=== PATIENT | male | born 1975 | race Caucasian/White ===

== ENCOUNTER 2019-10-11 08:54 | Outpatient (RCR) | payer SELFPAY | END 2019-10-26 00:01 | LOC: LAB 08:54 | PROVIDERS: Family Provider Family Medicine; Visit Provider Family Medicine | DX: E72.20 Disorder of urea cycle metabolism, unspecified (principal); D64.9 Anemia, unspecified; E74.04 McArdle disease; N17.0 Acute kidney failure with tubular necrosis; M62.82 Rhabdomyolysis; R16.2 Hepatomegaly with splenomegaly, not elsewhere classified | CPT/HCPCS: 36415 ×3; 80053 ×3; 82140 ×3; 82550 ×3; 85007 ×3; 85027 ×3 ==

== ENCOUNTER 2019-10-27 10:59 | Outpatient (CLI) | payer BC, SELFPAY ==
[2019-10-27 11:22] LABS: Add RBC Morph No; Basophils % 0.7 %; Eosinophils # 0.2 10^3/uL (0.0-0.8); Eosinophils % 3.9 %; Hematocrit 44.5 % (42.0-52.0); Hemoglobin 14.3 g/dL (11.7-16.6); Lymphocytes # 1.8 10^3/uL (0.8-4.8); Lymphocytes % 34.1 %; Mean Corpuscular HGB Conc 32.1 g/dL (30.0-36.0); Mean Corpuscular Hemoglobin 29.6 pg (28.0-34.0); Mean Corpuscular Volume 92.1 fL (80-94); Mean Platelet Volume 9.2 fL (7.4-10.4); Monocytes # 0.4 10^3/uL (0.2-0.9); Monocytes % 6.7 %; Neutrophils # 2.9 10^3/uL (1.8-7.7); Neutrophils % 54.4 %; Nucleated Red Blood Cells % 0 %; Platelet Count 227 10^3/cmm (130-400); Red Blood Count 4.83 10^6/uL (4.1-5.3); Red Cell Distribution Width 13.6 % (12.1-15.1); White Blood Count 5.4 10^3/uL (4.0-10.0)
[2019-10-27 11:46] LABS: Alanine Aminotransferase 21 U/L (0-41); Albumin Level 4.8 g/dL (3.5-5.2); Alkaline Phosphatase 84 IU/L (40-130); Anion Gap 16.9 (5-19); Aspartate Amino Transferase 24 U/L (0-40); Blood Urea Nitrogen 26 mg/dL (6-20); Calcium 10.6 mg/Dl (8.6-10.0); Carbon Dioxide 28 mmol/L (22-29); Chloride 98 mmol/L (98-107); Creatine Phosphokinase 169 U/L (39-308); Globulin 2.4 g/dL (1.3-4.6); Glomerular Filtration Rate 40.8 mL/min (90-130); Glucose 109 mg/dL (74-109); Potassium 3.9 mmol/L (3.5-5.1); Sodium 139 mmol/L (136-145); Total Bilirubin 0.3 mg/dL (0.15-1.2); Total Protein 7.2 g/dL (6.6-8.7)
[2019-10-27 11:57] LABS: Ammonia 55 umol/L (16-60)
== END 2019-10-27 11:00 | disposition home or self-care (01) ==
LOC: LAB 11:03
PROVIDERS: Family Provider Family Medicine; PCP Family Medicine; Visit Provider Family Medicine
DX: E72.20 Disorder of urea cycle metabolism, unspecified (principal); R16.2 Hepatomegaly with splenomegaly, not elsewhere classified; D64.9 Anemia, unspecified; E74.04 McArdle disease; N17.0 Acute kidney failure with tubular necrosis; M62.82 Rhabdomyolysis
CPT/HCPCS: 80053; 82140; 82550; 85025

== ENCOUNTER 2019-11-02 15:10 | Outpatient (CLI) | payer BC, SELFPAY ==
[2019-11-02 15:42] LABS: Alanine Aminotransferase 12 U/L (0-41); Albumin Level 4.7 g/dL (3.5-5.2); Alkaline Phosphatase 95 IU/L (40-130); Aspartate Amino Transferase 11 U/L (0-40); Blood Urea Nitrogen 28 mg/dL (6-20); Calcium 10.3 mg/Dl (8.6-10.0); Carbon Dioxide 22 mmol/L (22-29); Chloride 105 mmol/L (98-107); Creatine Phosphokinase 59 U/L (39-308); Globulin 2.5 g/dL (1.3-4.6); Glomerular Filtration Rate 40.8 mL/min (90-130); Glucose 101 mg/dL (74-109); Sodium 140 mmol/L (136-145); Total Bilirubin 0.2 mg/dL (0.15-1.2); Total Protein 7.2 g/dL (6.6-8.7)
[2019-11-02 15:55] LABS: Basophils # 0.1 10^3/uL (0.0-0.1); Basophils % 0.6 %; Eosinophils # 0.2 10^3/uL (0.0-0.8); Eosinophils % 2.2 %; Hematocrit 45.8 % (42.0-52.0); Hemoglobin 14.7 g/dL (11.7-16.6); Lymphocytes # 2.1 10^3/uL (0.8-4.8); Lymphocytes % 24.1 %; Mean Corpuscular HGB Conc 32.1 g/dL (30.0-36.0); Mean Corpuscular Hemoglobin 29.2 pg (28.0-34.0); Mean Corpuscular Volume 90.9 fL (80-94); Mean Platelet Volume 9.5 fL (7.4-10.4); Monocytes # 0.4 10^3/uL (0.2-0.9); Monocytes % 4.3 %; Neutrophils % 68.5 %; Nucleated Red Blood Cells % 0 %; Platelet Count 308 10^3/cmm (130-400); Red Blood Count 5.04 10^6/uL (4.1-5.3); Red Cell Distribution Width 14.3 % (12.1-15.1); White Blood Count 8.8 10^3/uL (4.0-10.0)
[2019-11-02 16:05] LABS: Ammonia 38 umol/L (16-60)
== END 2019-11-02 15:11 | disposition home or self-care (01) ==
LOC: LAB 15:12
PROVIDERS: Family Provider Family Medicine; PCP Family Medicine; Visit Provider Family Medicine
DX: E72.20 Disorder of urea cycle metabolism, unspecified (principal); R16.2 Hepatomegaly with splenomegaly, not elsewhere classified; D64.9 Anemia, unspecified; E74.04 McArdle disease; N17.0 Acute kidney failure with tubular necrosis; M62.82 Rhabdomyolysis
CPT/HCPCS: 36415; 80053; 82140; 82550; 85025

== ENCOUNTER 2019-11-09 12:54 | Outpatient (CLI) | payer BC, SELFPAY ==
[2019-11-09 14:37] LABS: Basophils # 0.1 10^3/uL (0.0-0.1); Basophils % 0.8 %; Eosinophils # 0.3 10^3/uL (0.0-0.8); Eosinophils % 3.6 %; Hematocrit 47.8 % (42.0-52.0); Hemoglobin 15.5 g/dL (11.7-16.6); Lymphocytes # 2.1 10^3/uL (0.8-4.8); Lymphocytes % 28.5 %; Mean Corpuscular HGB Conc 32.4 g/dL (30.0-36.0); Mean Corpuscular Hemoglobin 29.6 pg (28.0-34.0); Mean Corpuscular Volume 91.2 fL (80-94); Mean Platelet Volume 10.1 fL (7.4-10.4); Monocytes # 0.7 10^3/uL (0.2-0.9); Monocytes % 8.8 %; Neutrophils # 4.3 10^3/uL (1.8-7.7); Neutrophils % 57.9 %; Nucleated Red Blood Cells % 0 %; Platelet Count 325 10^3/cmm (130-400); Red Blood Count 5.24 10^6/uL (4.1-5.3); Red Cell Distribution Width 14.6 % (12.1-15.1); White Blood Count 7.5 10^3/uL (4.0-10.0)
[2019-11-09 14:39] LABS: Albumin Level 5.1 g/dL (3.5-5.2); Blood Urea Nitrogen 27 mg/dL (6-20); Calcium 10.4 mg/Dl (8.6-10.0); Carbon Dioxide 25 mmol/L (22-29); Chloride 105 mmol/L (98-107); Creatine Phosphokinase 51 U/L (39-308); Glucose 73 mg/dL (74-109); Lactate (Lactic Acid level) 0.8 mmol/L (0.5-2.2); Phosphorus 2.3 mg/dL (2.5-4.5); Sodium 141 mmol/L (136-145); Uric Acid 6.7 mg/dL (3.4-7.0)
[2019-11-09 15:51] LABS: Reflex Lactate Order Y
[2019-11-10 13:28] LABS: Ammonia 10 umol/L (16-60)
== END 2019-11-09 12:55 | disposition home or self-care (01) ==
PROVIDERS: Family Provider Family Medicine; PCP Family Medicine; Visit Provider Family Medicine
DX: E74.04 McArdle disease (principal); N17.0 Acute kidney failure with tubular necrosis
CPT/HCPCS: 36415; 80069; 82139; 82140; 82550; 83605; 84550; 85025

== ENCOUNTER 2019-11-15 08:56 | Outpatient (CLI) | payer BC, MEDICAID, SELFPAY ==
[2019-11-15 09:19] LABS: Basophils # 0.1 10^3/uL (0.0-0.1); Basophils % 0.8 %; Eosinophils # 0.3 10^3/uL (0.0-0.8); Eosinophils % 4.2 %; Hemoglobin 15.4 g/dL (11.7-16.6); Lymphocytes # 2.2 10^3/uL (0.8-4.8); Lymphocytes % 27.8 %; Mean Corpuscular HGB Conc 32.1 g/dL (30.0-36.0); Mean Corpuscular Hemoglobin 30.1 pg (28.0-34.0); Mean Corpuscular Volume 93.8 fL (80-94); Mean Platelet Volume 9.8 fL (7.4-10.4); Monocytes # 0.6 10^3/uL (0.2-0.9); Monocytes % 7.3 %; Neutrophils # 4.7 10^3/uL (1.8-7.7); Neutrophils % 59.6 %; Nucleated Red Blood Cells % 0 %; Platelet Count 268 10^3/cmm (130-400); Red Blood Count 5.12 10^6/uL (4.1-5.3); Red Cell Distribution Width 14.7 % (12.1-15.1); White Blood Count 7.8 10^3/uL (4.0-10.0)
[2019-11-15 09:35] LABS: Alanine Aminotransferase 14 U/L (0-41); Albumin Level 4.4 g/dL (3.5-5.2); Alkaline Phosphatase 83 IU/L (40-130); Anion Gap 17.8 (5-19); Aspartate Amino Transferase 14 U/L (0-40); Blood Urea Nitrogen 20 mg/dL (6-20); Calcium 10.5 mg/Dl (8.6-10.0); Carbon Dioxide 22 mmol/L (22-29); Chloride 106 mmol/L (98-107); Creatine Phosphokinase 69 U/L (39-308); Globulin 2.7 g/dL (1.3-4.6); Glomerular Filtration Rate 36.1 mL/min (90-130); Glucose 100 mg/dL (74-109); Potassium 3.8 mmol/L (3.5-5.1); Sodium 142 mmol/L (136-145); Total Bilirubin 0.2 mg/dL (0.15-1.2); Total Protein 7.1 g/dL (6.6-8.7)
[2019-11-15 10:22] LABS: Ammonia 40 umol/L (16-60)
== END 2019-11-15 08:57 | disposition home or self-care (01) ==
LOC: LAB 08:57
PROVIDERS: Family Provider Family Medicine; PCP Family Medicine; Visit Provider Family Medicine
DX: E74.04 McArdle disease (principal)
CPT/HCPCS: 36415; 80053; 82140; 82550; 85025

== ENCOUNTER 2019-11-18 10:28 | Outpatient (CLI) | payer BC, MEDICAID, SELFPAY ==
[2019-11-18 11:06] LABS: Basophils % 0.4 %; Eosinophils # 0.4 10^3/uL (0.0-0.8); Eosinophils % 5.6 %; Hematocrit 42.4 % (42.0-52.0); Hemoglobin 13.7 g/dL (11.7-16.6); Lymphocytes # 2.2 10^3/uL (0.8-4.8); Lymphocytes % 29.1 %; Mean Corpuscular HGB Conc 32.3 g/dL (30.0-36.0); Mean Corpuscular Hemoglobin 30.5 pg (28.0-34.0); Mean Corpuscular Volume 94.4 fL (80-94); Mean Platelet Volume 9.8 fL (7.4-10.4); Monocytes # 0.6 10^3/uL (0.2-0.9); Monocytes % 7.4 %; Neutrophils # 4.3 10^3/uL (1.8-7.7); Neutrophils % 57.4 %; Nucleated Red Blood Cells % 0 %; Platelet Count 224 10^3/cmm (130-400); Red Blood Count 4.49 10^6/uL (4.1-5.3); Red Cell Distribution Width 14.8 % (12.1-15.1); White Blood Count 7.5 10^3/uL (4.0-10.0)
[2019-11-18 11:23] LABS: Alanine Aminotransferase 24 U/L (0-41); Albumin Level 4.6 g/dL (3.5-5.2); Alkaline Phosphatase 86 IU/L (40-130); Anion Gap 15.7 (5-19); Aspartate Amino Transferase 40 U/L (0-40); Blood Urea Nitrogen 30 mg/dL (6-20); Calcium 9.7 mg/dL (8.5-10.5); Carbon Dioxide 24 mmol/L (22-29); Chloride 100 mmol/L (98-107); Globulin 1.7 g/dL (1.3-4.6); Glomerular Filtration Rate 27.9 mL/min (90-130); Glucose 143 mg/dL (74-109); Potassium 3.7 mmol/L (3.5-5.1); Sodium 136 mmol/L (136-145); Total Bilirubin 0.3 mg/dL (0.15-1.2); Total Protein 6.3 g/dL (6.6-8.7)
[2019-11-18 11:24] LABS: Ammonia 33 umol/L (16-60)
[2019-11-18 11:34] LABS: Calcium 9.5 mg/dL (8.5-10.5)
[2019-11-18 11:53] LABS: Creatine Phosphokinase 946 U/L (39-308)
[2019-11-18 12:08] LABS: Parathyroid Hormone 36.5 pg/mL (15-65)
[2019-11-18 12:11] LABS: 25 Hydroxy Vitamin D 25 ng/mL (30-100)
[2019-11-23 20:11] LABS: Vit D 1,25 (Oh)2, Total 15 pg/mL (18-72); Vit D2 1,25 (Oh)2 <8 pg/mL; Vit D3 1,25 (Oh)2 15 pg/mL
== END 2019-11-18 10:29 | disposition home or self-care (01) ==
LOC: LAB 10:32
PROVIDERS: Internal Medicine Critical Care Medicine; Family Provider Family Medicine; PCP Family Medicine; Visit Provider Family Medicine
DX: E74.04 McArdle disease (principal); E72.20 Disorder of urea cycle metabolism, unspecified
CPT/HCPCS: 36415; 80053; 82140; 82306; 82310; 82550; 82652; 83970; 85025

== ENCOUNTER 2019-11-18 13:47 | Outpatient (CLI) | payer BC, MEDICAID, SELFPAY ==
[2019-11-18] MEDS: sodium chloride 0.9% 1,000 ML 999 ML IV (14:12)
[2019-11-18 14:44] VITALS: BP 123/72; PULSE 78; RESP 18; TEMP 36.3; O2SAT 97; BMI 24.1
== END 2019-11-18 13:48 | disposition home or self-care (01) ==
LOC: GILAB 13:49
PROVIDERS: Family Provider Family Medicine; PCP Family Medicine; Visit Provider Family Medicine
DX: N17.0 Acute kidney failure with tubular necrosis (principal); M62.82 Rhabdomyolysis; E71.314 Muscle carnitine palmitoyltransferase deficiency
CPT/HCPCS: 96360; J7030

== ENCOUNTER 2019-11-22 09:18 | Outpatient (CLI) | payer BC, MEDICAID, SELFPAY ==
[2019-11-22 09:46] LABS: Basophils % 0.2 %; Eosinophils # 0.3 10^3/uL (0.0-0.8); Eosinophils % 3.9 %; Hematocrit 39.1 % (42.0-52.0); Hemoglobin 12.7 g/dL (11.7-16.6); Lymphocytes # 1.2 10^3/uL (0.8-4.8); Lymphocytes % 18.5 %; Mean Corpuscular HGB Conc 32.5 g/dL (30.0-36.0); Mean Corpuscular Hemoglobin 29.9 pg (28.0-34.0); Mean Platelet Volume 10.1 fL (7.4-10.4); Monocytes # 0.5 10^3/uL (0.2-0.9); Monocytes % 7.6 %; Neutrophils # 4.4 10^3/uL (1.8-7.7); Neutrophils % 69.5 %; Nucleated Red Blood Cells % 0 %; Platelet Count 216 10^3/cmm (130-400); Red Blood Count 4.25 10^6/uL (4.1-5.3); Red Cell Distribution Width 14.9 % (12.1-15.1); White Blood Count 6.3 10^3/uL (4.0-10.0)
[2019-11-22 10:01] LABS: Alanine Aminotransferase 25 U/L (0-41); Albumin Level 4.2 g/dL (3.5-5.2); Alkaline Phosphatase 86 IU/L (40-130); Anion Gap 15.1 (5-19); Aspartate Amino Transferase 41 U/L (0-40); Blood Urea Nitrogen 19 mg/dL (6-20); Calcium 9.9 mg/dL (8.5-10.5); Carbon Dioxide 27 mmol/L (22-29); Chloride 103 mmol/L (98-107); Globulin 2.6 g/dL (1.3-4.6); Glomerular Filtration Rate 27.9 mL/min (90-130); Glucose 137 mg/dL (74-109); Potassium 4.1 mmol/L (3.5-5.1); Sodium 141 mmol/L (136-145); Total Bilirubin 0.3 mg/dL (0.15-1.2); Total Protein 6.8 g/dL (6.6-8.7)
[2019-11-22 10:16] LABS: Ammonia 22 umol/L (16-60)
[2019-11-22 10:35] LABS: Creatine Phosphokinase 896 U/L (39-308)
== END 2019-11-22 09:19 | disposition home or self-care (01) ==
LOC: LAB 09:19
PROVIDERS: Family Provider Family Medicine; PCP Family Medicine; Visit Provider Family Medicine
DX: E74.04 McArdle disease (principal)
CPT/HCPCS: 36415; 80053; 82140; 82550; 85025

== ENCOUNTER 2019-11-30 10:33 | Outpatient (CLI) | payer BC, SELFPAY ==
[2019-11-30 11:17] LABS: Basophils # 0.1 10^3/uL (0.0-0.1); Basophils % 0.7 %; Eosinophils # 0.2 10^3/uL (0.0-0.8); Eosinophils % 2.1 %; Hematocrit 50.4 % (42.0-52.0); Hemoglobin 15.9 g/dL (11.7-16.6); Lymphocytes # 1.9 10^3/uL (0.8-4.8); Lymphocytes % 21.7 %; Mean Corpuscular HGB Conc 31.5 g/dL (30.0-36.0); Mean Corpuscular Hemoglobin 29.7 pg (28.0-34.0); Mean Corpuscular Volume 94.2 fL (80-94); Mean Platelet Volume 9.8 fL (7.4-10.4); Monocytes # 0.5 10^3/uL (0.2-0.9); Monocytes % 5.9 %; Neutrophils % 68.9 %; Nucleated Red Blood Cells % 0 %; Platelet Count 279 10^3/cmm (130-400); Red Blood Count 5.35 10^6/uL (4.1-5.3); Red Cell Distribution Width 14.5 % (12.1-15.1); White Blood Count 8.7 10^3/uL (4.0-10.0)
[2019-11-30 11:32] LABS: Alanine Aminotransferase 12 U/L (0-41); Albumin Level 4.5 g/dL (3.5-5.2); Alkaline Phosphatase 90 IU/L (40-130); Anion Gap 16.1 (5-19); Blood Urea Nitrogen 24 mg/dL (6-20); Calcium 10.4 mg/dL (8.5-10.5); Carbon Dioxide 23 mmol/L (22-29); Chloride 102 mmol/L (98-107); Creatine Phosphokinase 54 U/L (39-308); Globulin 3.1 g/dL (1.3-4.6); Glomerular Filtration Rate 38.4 mL/min (90-130); Glucose 95 mg/dL (74-109); Potassium 5.1 mmol/L (3.5-5.1); Sodium 136 mmol/L (136-145); Total Bilirubin 0.3 mg/dL (0.15-1.2); Total Protein 7.6 g/dL (6.6-8.7)
[2019-11-30 11:33] LABS: Ammonia 32 umol/L (16-60)
[2019-11-30 11:34] LABS: Aspartate Amino Transferase 16 U/L (0-40)
== END 2019-11-30 10:34 | disposition home or self-care (01) ==
LOC: LAB 10:37
PROVIDERS: Family Provider Family Medicine; PCP Family Medicine; Visit Provider Family Medicine
DX: E74.04 McArdle disease (principal); E72.20 Disorder of urea cycle metabolism, unspecified
CPT/HCPCS: 80053; 82140; 82550; 85025

== ENCOUNTER 2019-12-06 07:04 | Outpatient (CLI) | payer BC, SELFPAY ==
[2019-12-06 07:45] LABS: Ammonia 27 umol/L (16-60)
[2019-12-06 07:52] LABS: Alanine Aminotransferase 10 U/L (0-41); Albumin Level 4.4 g/dL (3.5-5.2); Alkaline Phosphatase 83 IU/L (40-130); Anion Gap 17.5 (5-19); Aspartate Amino Transferase 11 U/L (0-40); Blood Urea Nitrogen 21 mg/dL (6-20); Calcium 10.4 mg/dL (8.5-10.5); Carbon Dioxide 25 mmol/L (22-29); Chloride 103 mmol/L (98-107); Creatine Phosphokinase 68 U/L (39-308); Globulin 2.3 g/dL (1.3-4.6); Glomerular Filtration Rate 32.4 mL/min (90-130); Glucose 96 mg/dL (65-115); Potassium 4.5 mmol/L (3.5-5.1); Sodium 141 mmol/L (136-145); Total Bilirubin 0.2 mg/dL (0.15-1.2); Total Protein 6.7 g/dL (6.6-8.7)
== END 2019-12-06 07:05 | disposition home or self-care (01) ==
LOC: LAB 07:07
PROVIDERS: Family Provider Family Medicine; PCP Family Medicine; Visit Provider Family Medicine
DX: E74.04 McArdle disease (principal)
CPT/HCPCS: 36415; 80053; 82140; 82550

== ENCOUNTER 2019-12-14 08:50 | Outpatient (CLI) | payer BC, SELFPAY ==
[2019-12-14 09:25] LABS: Basophils % 0.4 %; Eosinophils # 0.3 10^3/uL (0.0-0.8); Eosinophils % 3.2 %; Hematocrit 48.6 % (42.0-52.0); Hemoglobin 15.4 g/dL (11.7-16.6); Lymphocytes # 1.5 10^3/uL (0.8-4.8); Lymphocytes % 19.7 %; Mean Corpuscular HGB Conc 31.7 g/dL (30.0-36.0); Mean Corpuscular Hemoglobin 28.6 pg (28.0-34.0); Mean Corpuscular Volume 90.3 fL (80-94); Mean Platelet Volume 10.1 fL (7.4-10.4); Monocytes # 0.4 10^3/uL (0.2-0.9); Monocytes % 5.6 %; Neutrophils # 5.5 10^3/uL (1.8-7.7); Neutrophils % 70.8 %; Nucleated Red Blood Cells % 0 %; Platelet Count 289 10^3/cmm (130-400); Red Blood Count 5.38 10^6/uL (4.1-5.3); Red Cell Distribution Width 14.2 % (12.1-15.1); White Blood Count 7.7 10^3/uL (4.0-10.0)
[2019-12-14 09:35] LABS: Ammonia 16 umol/L (16-60)
[2019-12-14 09:36] LABS: Alanine Aminotransferase 15 U/L (0-41); Albumin Level 4.6 g/dL (3.5-5.2); Alkaline Phosphatase 97 IU/L (40-130); Aspartate Amino Transferase 18 U/L (0-40); Blood Urea Nitrogen 23 mg/dL (6-20); Calcium 10.5 mg/dL (8.5-10.5); Carbon Dioxide 26 mmol/L (22-29); Chloride 103 mmol/L (98-107); Creatine Phosphokinase 75 U/L (39-308); Globulin 2.8 g/dL (1.3-4.6); Glomerular Filtration Rate 36.1 mL/min (90-130); Glucose 103 mg/dL (65-115); Sodium 139 mmol/L (136-145); Total Bilirubin 0.2 mg/dL (0.15-1.2); Total Protein 7.4 g/dL (6.6-8.7)
== END 2019-12-14 08:51 | disposition home or self-care (01) ==
PROVIDERS: Family Provider Family Medicine; PCP Family Medicine; Visit Provider Family Medicine
DX: E74.04 McArdle disease (principal)
CPT/HCPCS: 36415; 80053; 82140; 82550; 85025

== ENCOUNTER → 2019-12-19 13:39 | Outpatient (BNVA) | payer BC, SELFPAY | PROVIDERS: Family Provider Family Medicine; PCP Family Medicine; Visit Provider Nurse Practitioner Family | DX: H93.90 Unspecified disorder of ear, unspecified ear (principal); J01.40 Acute pansinusitis, unspecified; H66.92 Otitis media, unspecified, left ear; H72.92 Unspecified perforation of tympanic membrane, left ear; Z68.24 Body mass index [BMI] 24.0-24.9, adult; F17.210 Nicotine dependence, cigarettes, uncomplicated; Z71.89 Other specified counseling | CPT/HCPCS: 87804 ==

== ENCOUNTER 2019-12-20 06:56 | Outpatient (CLI) | payer BC, SELFPAY ==
[2019-12-20 07:22] LABS: Basophils # 0.1 10^3/uL (0.0-0.1); Basophils % 0.6 %; Eosinophils # 0.6 10^3/uL (0.0-0.8); Hematocrit 44.9 % (42.0-52.0); Hemoglobin 14.3 g/dL (11.7-16.6); Lymphocytes # 1.7 10^3/uL (0.8-4.8); Lymphocytes % 17.3 %; Mean Corpuscular HGB Conc 31.8 g/dL (30.0-36.0); Mean Corpuscular Hemoglobin 28.4 pg (28.0-34.0); Mean Corpuscular Volume 89.1 fL (80-94); Mean Platelet Volume 10.6 fL (7.4-10.4); Monocytes # 0.9 10^3/uL (0.2-0.9); Neutrophils # 6.6 10^3/uL (1.8-7.7); Neutrophils % 66.9 %; Nucleated Red Blood Cells % 0 %; Platelet Count 207 10^3/cmm (130-400); Red Blood Count 5.04 10^6/uL (4.1-5.3); Red Cell Distribution Width 14.2 % (12.1-15.1); White Blood Count 9.8 10^3/uL (4.0-10.0)
[2019-12-20 07:36] LABS: Alanine Aminotransferase 13 U/L (0-41); Albumin Level 4.3 g/dL (3.5-5.2); Alkaline Phosphatase 98 IU/L (40-130); Aspartate Amino Transferase 22 U/L (0-40); Blood Urea Nitrogen 30 mg/dL (6-20); Calcium 10.3 mg/dL (8.5-10.5); Carbon Dioxide 25 mmol/L (22-29); Chloride 98 mmol/L (98-107); Glomerular Filtration Rate 32.4 mL/min (90-130); Glucose 103 mg/dL (65-115); Phosphorus 3.5 mg/dL (2.5-4.5); Sodium 137 mmol/L (136-145); Total Bilirubin 0.4 mg/dL (0.15-1.2); Total Protein 7.3 g/dL (6.6-8.7)
[2019-12-20 09:00] LABS: Creatine Phosphokinase 323 U/L (39-308)
[2019-12-20 10:24] LABS: Ammonia 49 umol/L (16-60)
== END 2019-12-20 06:57 | disposition home or self-care (01) ==
LOC: LAB 06:59
PROVIDERS: Family Provider Family Medicine; PCP Family Medicine; Visit Provider Family Medicine
DX: E72.20 Disorder of urea cycle metabolism, unspecified (principal); R16.2 Hepatomegaly with splenomegaly, not elsewhere classified; D64.9 Anemia, unspecified; E74.04 McArdle disease; N17.0 Acute kidney failure with tubular necrosis; M62.82 Rhabdomyolysis; N17.9 Acute kidney failure, unspecified
CPT/HCPCS: 36415; 80053; 80069; 82140; 82550; 85025

== ENCOUNTER 2019-12-23 10:31 | Outpatient (RCR) | payer BC, SELFPAY ==
[2019-12-22 10:40] VITALS: BP 126/73; PULSE 85; RESP 18; TEMP 37.2; O2SAT 95; BMI 23.6
[2019-12-22] MEDS: sodium chloride 0.9% 2,000 ML 999 ML (11:00)
[2019-12-23 10:54] LABS: Basophils % 0.3 %; Eosinophils # 0.5 10^3/uL (0.0-0.8); Eosinophils % 4.5 %; Hematocrit 39.3 % (42.0-52.0); Hemoglobin 12.6 g/dL (11.7-16.6); Lymphocytes # 1.6 10^3/uL (0.8-4.8); Lymphocytes % 14.9 %; Mean Corpuscular HGB Conc 32.1 g/dL (30.0-36.0); Mean Corpuscular Hemoglobin 29.6 pg (28.0-34.0); Mean Corpuscular Volume 92.5 fL (80-94); Mean Platelet Volume 9.8 fL (7.4-10.4); Monocytes # 0.9 10^3/uL (0.2-0.9); Monocytes % 8.2 %; Neutrophils # 7.7 10^3/uL (1.8-7.7); Neutrophils % 71.8 %; Nucleated Red Blood Cells % 0 %; Platelet Count 221 10^3/cmm (130-400); Red Blood Count 4.25 10^6/uL (4.1-5.3); Red Cell Distribution Width 14.3 % (12.1-15.1); White Blood Count 10.8 10^3/uL (4.0-10.0)
[2019-12-23 11:07] LABS: Ammonia 31 umol/L (16-60)
[2019-12-23 11:08] LABS: Alanine Aminotransferase 14 U/L (0-41); Albumin Level 3.8 g/dL (3.5-5.2); Alkaline Phosphatase 80 IU/L (40-130); Anion Gap 14.6 (5-19); Aspartate Amino Transferase 26 U/L (0-40); Blood Urea Nitrogen 20 mg/dL (6-20); Calcium 9.7 mg/dL (8.5-10.5); Carbon Dioxide 28 mmol/L (22-29); Chloride 96 mmol/L (98-107); Creatine Phosphokinase 257 U/L (39-308); Globulin 3.1 g/dL (1.3-4.6); Glomerular Filtration Rate 36.1 mL/min (90-130); Glucose 102 mg/dL (65-115); Potassium 3.6 mmol/L (3.5-5.1); Sodium 135 mmol/L (136-145); Total Bilirubin 0.5 mg/dL (0.15-1.2); Total Protein 6.9 g/dL (6.6-8.7)
== END 2019-12-25 23:59 | disposition home or self-care (01) ==
LOC: GILAB 10:31
PROVIDERS: Family Provider Family Medicine; PCP Family Medicine; Visit Provider Family Medicine
DX: N17.0 Acute kidney failure with tubular necrosis (principal); M62.82 Rhabdomyolysis; E71.314 Muscle carnitine palmitoyltransferase deficiency
CPT/HCPCS: 36415; 80053; 82140; 82550; 85025; 96360; 96361; J7030

== ENCOUNTER 2020-01-18 08:08 | Outpatient (RCR) | payer BC, MEDICAID, SELFPAY ==
[2019-12-27 09:40] LABS: Basophils % 0.5 %; Eosinophils # 0.3 10^3/uL (0.0-0.8); Eosinophils % 4.3 %; Hematocrit 46.1 % (42.0-52.0); Hemoglobin 14.6 g/dL (11.7-16.6); Lymphocytes # 1.9 10^3/uL (0.8-4.8); Mean Corpuscular HGB Conc 31.7 g/dL (30.0-36.0); Mean Corpuscular Hemoglobin 28.9 pg (28.0-34.0); Mean Corpuscular Volume 91.3 fL (80-94); Mean Platelet Volume 9.1 fL (7.4-10.4); Monocytes # 0.5 10^3/uL (0.2-0.9); Monocytes % 6.8 %; Neutrophils # 4.7 10^3/uL (1.8-7.7); Neutrophils % 62.9 %; Nucleated Red Blood Cells % 0 %; Platelet Count 319 10^3/cmm (130-400); Red Blood Count 5.05 10^6/uL (4.1-5.3); Red Cell Distribution Width 13.6 % (12.1-15.1); White Blood Count 7.4 10^3/uL (4.0-10.0)
[2019-12-27 09:56] LABS: Alanine Aminotransferase 13 U/L (0-41); Albumin Level 4.2 g/dL (3.5-5.2); Alkaline Phosphatase 88 IU/L (40-130); Anion Gap 15.6 (5-19); Aspartate Amino Transferase 14 U/L (0-40); Blood Urea Nitrogen 22 mg/dL (6-20); Calcium 10.5 mg/dL (8.5-10.5); Carbon Dioxide 25 mmol/L (22-29); Chloride 104 mmol/L (98-107); Creatine Phosphokinase 53 U/L (39-308); Globulin 2.9 g/dL (1.3-4.6); Glomerular Filtration Rate 43.6 mL/min (90-130); Glucose 108 mg/dL (65-115); Potassium 4.6 mmol/L (3.5-5.1); Sodium 140 mmol/L (136-145); Total Bilirubin 0.2 mg/dL (0.15-1.2); Total Protein 7.1 g/dL (6.6-8.7)
[2019-12-27 09:57] LABS: Ammonia 15 umol/L (16-60)
[2020-01-04 11:51] LABS: Basophils # 0.1 10^3/uL (0.0-0.1); Basophils % 0.8 %; Eosinophils # 0.3 10^3/uL (0.0-0.8); Eosinophils % 5.2 %; Hematocrit 46.9 % (42.0-52.0); Hemoglobin 14.8 g/dL (11.7-16.6); Lymphocytes # 2.3 10^3/uL (0.8-4.8); Lymphocytes % 34.3 %; Mean Corpuscular HGB Conc 31.6 g/dL (30.0-36.0); Mean Corpuscular Hemoglobin 28.7 pg (28.0-34.0); Mean Corpuscular Volume 90.9 fL (80-94); Mean Platelet Volume 9.4 fL (7.4-10.4); Monocytes # 0.5 10^3/uL (0.2-0.9); Monocytes % 7.4 %; Neutrophils # 3.4 10^3/uL (1.8-7.7); Nucleated Red Blood Cells % 0 %; Platelet Count 346 10^3/cmm (130-400); Red Blood Count 5.16 10^6/uL (4.1-5.3); Red Cell Distribution Width 14.2 % (12.1-15.1); White Blood Count 6.6 10^3/uL (4.0-10.0)
[2020-01-04 12:01] LABS: Alanine Aminotransferase 24 U/L (0-41); Albumin Level 4.6 g/dL (3.5-5.2); Alkaline Phosphatase 79 IU/L (40-130); Anion Gap 15.3 (5-19); Aspartate Amino Transferase 23 U/L (0-40); Blood Urea Nitrogen 22 mg/dL (6-20); Calcium 10.2 mg/dL (8.5-10.5); Carbon Dioxide 26 mmol/L (22-29); Chloride 102 mmol/L (98-107); Creatine Phosphokinase 93 U/L (39-308); Globulin 2.5 g/dL (1.3-4.6); Glomerular Filtration Rate 38.4 mL/min (90-130); Glucose 99 mg/dL (65-115); Osmolality Calculated 285 mOsm/kg (285-295); Potassium 4.3 mmol/L (3.5-5.1); Sodium 139 mmol/L (136-145); Total Bilirubin 0.3 mg/dL (0.15-1.2); Total Protein 7.1 g/dL (6.6-8.7)
[2020-01-04 12:03] LABS: Ammonia 19 umol/L (16-60)
[2020-01-10 13:55] LABS: Basophils # 0.1 10^3/uL (0.0-0.1); Basophils % 1.2 %; Eosinophils # 0.2 10^3/uL (0.0-0.8); Eosinophils % 3.1 %; Hematocrit 41.4 % (42.0-52.0); Hemoglobin 13.4 g/dL (11.7-16.6); Lymphocytes % 29.3 %; Mean Corpuscular HGB Conc 32.4 g/dL (30.0-36.0); Mean Corpuscular Volume 89.6 fL (80-94); Mean Platelet Volume 10.1 fL (7.4-10.4); Monocytes # 0.4 10^3/uL (0.2-0.9); Monocytes % 6.5 %; Neutrophils % 59.8 %; Nucleated Red Blood Cells % 0 %; Platelet Count 304 10^3/cmm (130-400); Red Blood Count 4.62 10^6/uL (4.1-5.3); Red Cell Distribution Width 14.5 % (12.1-15.1); White Blood Count 6.7 10^3/uL (4.0-10.0)
[2020-01-10 14:09] LABS: Alanine Aminotransferase 18 U/L (0-41); Albumin Level 4.4 g/dL (3.5-5.2); Alkaline Phosphatase 87 IU/L (40-130); Anion Gap 14.2 (5-19); Aspartate Amino Transferase 26 U/L (0-40); Blood Urea Nitrogen 21 mg/dL (6-20); Calcium 9.2 mg/dL (8.5-10.5); Carbon Dioxide 26 mmol/L (22-29); Chloride 106 mmol/L (98-107); Globulin 2.3 g/dL (1.3-4.6); Glomerular Filtration Rate 29.3 mL/min (90-130); Glucose 95 mg/dL (65-115); Osmolality Calculated 290 mOsm/kg (285-295); Potassium 4.2 mmol/L (3.5-5.1); Sodium 142 mmol/L (136-145); Total Bilirubin 0.2 mg/dL (0.15-1.2); Total Protein 6.7 g/dL (6.6-8.7)
[2020-01-10 14:10] LABS: Ammonia 22 umol/L (16-60)
[2020-01-10 14:20] LABS: Creatine Phosphokinase 509 U/L (39-308)
[2020-01-12 09:15] VITALS: BP 108/76; PULSE 73; RESP 20; TEMP 36.2; O2SAT 97; BMI 23.5
[2020-01-12] MEDS: sodium chloride 0.9% 1,000 ML 500 ML (09:22)
[2020-01-18 08:48] LABS: Hematocrit 48.6 % (42.0-52.0); Hemoglobin 15.5 g/dL (11.7-16.6); Mean Corpuscular HGB Conc 31.9 g/dL (30.0-36.0); Mean Corpuscular Hemoglobin 28.9 pg (28.0-34.0); Mean Corpuscular Volume 90.5 fL (80-94); Mean Platelet Volume 10.1 fL (7.4-10.4); Platelet Count 277 10^3/cmm (130-400); Red Blood Count 5.37 10^6/uL (4.1-5.3); Red Cell Distribution Width 14.6 % (12.1-15.1); White Blood Count 6.3 10^3/uL (4.0-10.0)
[2020-01-18 09:03] LABS: Ammonia 24 umol/L (16-60)
[2020-01-18 09:04] LABS: Alanine Aminotransferase 23 U/L (0-41); Albumin Level 4.8 g/dL (3.5-5.2); Alkaline Phosphatase 82 IU/L (40-130); Anion Gap 16.4 (5-19); Aspartate Amino Transferase 21 U/L (0-40); Blood Urea Nitrogen 24 mg/dL (6-20); Carbon Dioxide 25 mmol/L (22-29); Chloride 102 mmol/L (98-107); Creatine Phosphokinase 64 U/L (39-308); Globulin 2.6 g/dL (1.3-4.6); Glomerular Filtration Rate 40.8 mL/min (90-130); Glucose 94 mg/dL (65-115); Osmolality Calculated 285 mOsm/kg (285-295); Potassium 4.4 mmol/L (3.5-5.1); Sodium 139 mmol/L (136-145); Total Bilirubin 0.3 mg/dL (0.15-1.2); Total Protein 7.4 g/dL (6.6-8.7)
[2020-01-18 09:36] LABS: Absolute Eosinophils 0.2 10^3/cmm (0.0-0.7); Absolute Segmented Neutrophil 3.4 10/cmm (1.6-7.1); Band Neutrophils Absolute 0.1 10^3/cmm (0.0-1.2); Eosinophils 4 %; Lymphocytes 35 %; Monocytes Absolute 0.3 10^3/cmm (0.1-0.6); Segmented Neutrophils 55 %; Total Cells Counted 100 (0-100)
[2020-01-18 09:37] LABS: Platelet Estimate Normal (Normal)
== END 2020-01-25 23:59 | disposition home or self-care (01) ==
LOC: LAB 08:08
PROVIDERS: Family Provider Family Medicine; PCP Family Medicine; Visit Provider Family Medicine
DX: N17.0 Acute kidney failure with tubular necrosis (principal)
CPT/HCPCS: 36415; 80053; 82140; 82550; 85007; 85025; 85027; 96360; 96361; J7030

== ENCOUNTER 2020-01-31 09:25 | Outpatient (CLI) | payer BC, MEDICAID, SELFPAY ==
[2020-01-31 10:02] LABS: Alanine Aminotransferase 27 U/L (0-41); Albumin Level 4.7 g/dL (3.5-5.2); Alkaline Phosphatase 114 IU/L (40-130); Aspartate Amino Transferase 19 U/L (0-40); Blood Urea Nitrogen 23 mg/dL (6-20); Calcium 10.5 mg/dL (8.5-10.5); Carbon Dioxide 25 mmol/L (22-29); Chloride 102 mmol/L (98-107); Creatine Phosphokinase 43 U/L (39-308); Globulin 3.1 g/dL (1.3-4.6); Glomerular Filtration Rate 34.2 mL/min (90-130); Glucose 102 mg/dL (65-115); Osmolality Calculated 285 mOsm/kg (285-295); Sodium 139 mmol/L (136-145); Total Bilirubin 0.2 mg/dL (0.15-1.2); Total Protein 7.8 g/dL (6.6-8.7)
[2020-01-31 10:05] LABS: Basophils % 0.4 %; Eosinophils # 0.2 10^3/uL (0.0-0.8); Eosinophils % 2.4 %; Hematocrit 50.4 % (42.0-52.0); Hemoglobin 15.8 g/dL (11.7-16.6); Lymphocytes # 1.3 10^3/uL (0.8-4.8); Lymphocytes % 13.8 %; Mean Corpuscular HGB Conc 31.3 g/dL (30.0-36.0); Mean Corpuscular Hemoglobin 28.9 pg (28.0-34.0); Mean Corpuscular Volume 92.3 fL (80-94); Mean Platelet Volume 9.8 fL (7.4-10.4); Monocytes # 0.6 10^3/uL (0.2-0.9); Monocytes % 6.3 %; Neutrophils # 7.3 10^3/uL (1.8-7.7); Neutrophils % 76.9 %; Nucleated Red Blood Cells % 0 %; Platelet Count 235 10^3/cmm (130-400); Red Blood Count 5.46 10^6/uL (4.1-5.3); Red Cell Distribution Width 15.2 % (12.1-15.1); White Blood Count 9.5 10^3/uL (4.0-10.0)
[2020-01-31 10:09] LABS: Ammonia 21 umol/L (16-60)
== END 2020-01-31 09:26 | disposition home or self-care (01) ==
PROVIDERS: Family Provider Family Medicine; PCP Family Medicine; Visit Provider Family Medicine
DX: E72.20 Disorder of urea cycle metabolism, unspecified (principal); N17.0 Acute kidney failure with tubular necrosis
CPT/HCPCS: 80053; 82140; 82550; 85025

== ENCOUNTER 2020-02-04 04:32 | Emergency (ER) | payer BC, MEDICAID, SELFPAY ==
[2020-02-04 04:44] VITALS: BP 136/101; PULSE 96; RESP 16; TEMP 36.8; O2SAT 100; BMI 23.2
--- NOTE | 2020-02-04 05:02 | ECG_ITS ---
Measurements Intervals [place] Rate: 95 P: 50 WA: 158 QRS: -14 QRSD: 92 T: 60 QT: 374 QTc: 471 SINUS RHYTHM VOLTAGE CRITERIA FOR LVH [MEETS CRITERIA IN ONE OF: R(aVL), S(V1), R(V5), R(V5 (V5/V6)+S(V1)] NONSPECIFIC T-WAVE ABNORMALITY Compared to ECG 10/14/2019 05:42:23 Left ventricular hypertrophy now present T-wave abnormality now present Sinus bradycardia no longer present Prolonged QT interval no longer present Electronically Signed On 02-04-2020 17:06:18 CDT by Bhupinder Vargas M.D. [id number]
--- NOTE | 2020-02-04 05:08 | ED_ITS ---
Documented by User: Candis Tello 02/04/20 05:33 HPI - Back Pain/Injury General: Chief Complaint: Back Pain/Injury Stated Complaint: hip pain Time Seen by Provider: 02/04/20 04:53 History of Present Illness: HPI Narrative: Mr. Cristobal is a 44-year-old male who comes in with complaints of diffuse muscle aches and pains and malaise. The patient is a difficult historian as he rambles about multiple things that happened in the past. What I can ascertain is he his greatest concern is that his chronic kidney disease has flared up and he is concerned that his muscle pain is caused by rhabdomyolysis. The patient denies any chest pain, shortness of breath, fever or other more focal symptoms. His greatest complaints is of chronic back pain is been made worse and lower extremity pain. Patient does also relate that he is recently had a stepdown in his chronic pain medication he takes for this pain. Review of Systems General: Reports: 10 or more systems reviewed and unremarkable except in HPI and below (Patient has a positive you system for back pain, leg pain and diffuse malaise.) PFSH ED PFSH: Medical History Acute depression Acute non-recurrent pansinusitis Acute on chronic renal insufficiency Anxiety Arteriosclerotic heart disease Chronic kidney disease, unspecified Chronic rhinitis Closed displaced fracture of distal phalanx of toe of left foot Common migraine without intractability Edema, unspecified Essential (primary) hypertension GERD (gastroesophageal reflux disease) Insomnia, unspecified penitentiary (current) use of opiate analgesic Bay disease Metabolic encephalopathy Obstructive sleep apnea Shortness of breath Tremor, unspecified Venous insufficiency (chronic) (peripheral) Vitamin D deficiency, unspecified Surgical History H/O angioplasty H/O arthroscopic knee surgery H/O heart surgery Hx of tonsillectomy S/P hemodialysis catheter insertion Family History Mother Hypertension Diabetes Social History Smoking and tobacco status: current every day smoker cigarettes Packs smoked per day: 0.5 Alcohol intake: never Household members: spouse Marital status: Current occupational status: unemployed History of recent travel: No Current gender identity: Male Physical Exam Const: COMMON NORMALS: no apparent distress, oriented x3, no limitations, healthy appearing and well nourished EXAM LIMITATIONS: no altered mental status GENERAL APPEARANCE: cooperative, well kempt and well developed ORIENTATION/CONSCIOUSNESS: Yes awake HENMT: COMMON NORMALS: normocephalic, head/scalp atraumatic, hearing grossly normal bilaterally, external ears normal, EAC's normal, external nose normal and moist oral mucous membranes HEAD & SCALP: normal to inspection, normocephalic and atraumatic FACE & SINUS: normal facial exam and face symmetric NOSE: external nose normal and nares normal EXTERNAL EAR: Yes external ears normal EXTERNAL AUDITORY CANAL: EAC's normal MOUTH: oral and palatal mucosa normal and tongue normal Eye: COMMON NORMALS: PERRL, EOMs intact bilaterally, conjunctivae normal and no scleral icterus GENERAL EYE: normal appearance of both eyes and normal light reflex CONJUNCTIVA: Yes conjunctivae normal SCLERA: sclerae normal CORNEA: Yes corneas normal PUPIL: Yes PERRL DIRECT OPHTHALMOSCOPY: Yes normal light reflex Neck/C-Spine: COMMON NORMALS: full ROM, no lymphadenopathy, supple, no meningeal signs and no JVD GENERAL: Yes normal visual inspection and Yes trachea midline CERVICAL SPINE: Yes cervical ROM normal Chest: COMMONS NORMALS: inspection of chest normal and palpation of chest normal Resp: COMMON NORMALS: normal respiratory effort, no retractions, no use of accessory muscles and clear to auscultation bilaterally EFFORT & INSPECTION: Yes able to speak in complete sentences AUSCULTATION: clear to auscultation bilaterally Cardio: COMMON NORMALS: no JVD, regular rhythm, S1 normal heart sound, S2 normal heart sound, no gallops, no clicks, no murmurs and no rub JUGULAR VENOUS DISTENTION: no JVD RATE: tachycardic RHYTHM: regular rhythm HEART SOUNDS: S1 normal and S2 normal GI: COMMON NORMALS: soft to palpation, non-tender, no hepatosplenomegaly and no masses INSPECTION: Yes normal to inspection PALPATION: Yes soft and Yes no hepatosplenomegaly : COMMON NORMALS: Yes no CVA tenderness BLADDER/KIDNEY EXAM: Yes no CVA tenderness Back/Pelvis: COMMON NORMALS: no CVA tenderness, thoracic and lumbar spine normal to inspection, no thoracic nor lumbar tenderness and thoraco-lumbar ROM normal Extremity: COMMON NORMALS: normal to inspection, full ROM, normal capillary refill, no joint enlargement, no clubbing, cyanosis or edema and no calf tenderness Neuro: COMMON NORMALS: oriented x3, CN's II-XII intact bilaterally, moves all extremities, no focal motor deficits and no sensory deficits noted MENINGEAL SIGNS: Yes no meningeal signs Psych: COMMON NORMALS: mental status grossly normal, thought process normal, cooperative, affect normal, speech normal and activity/motor behavior normal APPEARANCE: Yes well kempt SPEECH: Yes normal speech THOUGHT PROCESS: normal thought process Skin: COMMON NORMALS: no rashes or lesions noted, skin turgor normal, no jaundice, no petechiae and no mottling GENERAL SKIN EXAM: no rashes or lesions noted and turgor normal Course Vital Signs: Vital signs: Vital Signs Temperature 98.2 F 02/04/20 04:44 Pulse Rate 96 02/04/20 06:39 Respiratory Rate 18 02/04/20 06:39 Blood Pressure 148/97 02/04/20 06:39 Pulse Oximetry 100 02/04/20 06:39 MDM - Back Pain/Injury Lab Data: Labs: Lab Results 02/04/20 02/04/20 02/04/20 Range/Units 05:37 05:37 05:37 WBC 6.8 (4.0-10.0) 10^3/ uL RBC 5.43 H (4.1-5.3) 10^6/u L Hgb 15.6 (11.7-16.6) g/dL Hct 49.0 (42.0-52.0) % MCV 90.2 (80-94) fL MCH 28.7 (28.0-34.0) pg MCHC 31.8 (30.0-36.0) g/dL RDW 15.2 H (12.1-15.1) % Plt Count 289 (130-400) 10^3/c mm MPV 9.8 (7.4-10.4) fL Neut % (Auto) 63.0 % Lymph % (Auto) 27.1 % [place] % (Auto) 7.4 % Eos % (Auto) 1.8 % Baso % (Auto) 0.6 % Neut # (Auto) 4.3 (1.8-7.7) 10^3/u L Lymph # (Auto) 1.8 (0.8-4.8) 10^3/u L [place] # (Auto) 0.5 (0.2-0.9) 10^3/u L Eos # (Auto) 0.1 (0.0-0.8) 10^3/u L Baso # (Auto) 0.0 (0.0-0.1) 10^3/u L Nucleated RBC % (a uto) 0 % Nucleated RBCs # 0.0 /100WBC Sodium 140 (136-145) mmol/L Potassium 3.6 (3.5-5.1) mmol/L Chloride 101 (98-107) mmol/L Carbon Dioxide 22 (22-29) mmol/L Anion Gap 20.6 H (5-19) BUN 23 H (6-20) mg/dL Creatinine 2.2 H (0.7-1.2) mg/dL GFR Calculation 32.4 L (90-130) mL/min Glucose 98 (65-115) mg/dL Calculated Osmolal ity 287 (285-295) mOsm/k g Calcium 10.9 H (8.5-10.5) mg/dL Magnesium 2.6 H (1.7-2.3) mg/dL Total Bilirubin 0.3 (0.15-1.2) mg/dL AST 24 (0-40) U/L ALT 24 (0-41) U/L Alkaline Phosphata se 107 (40-130) IU/L Ammonia (16-60) umol/L Creatine Kinase 202 (39-308) U/L Troponin T Baselin e 19 H (0-15) ng/mL Total Protein 8.3 (6.6-8.7) g/dL Albumin 5.4 H (3.5-5.2) g/dL Globulin 2.9 (1.3-4.6) g/dL Urine Opiates Scre en (Negative) ng/mL Ur Barbiturates Sc reen (Negative) ng/mL Ur Phencyclidine S crn (Negative) ng/mL Ur Amphetamines Sc reen (Negative) ng/mL U Benzodiazepines Scrn (Negative) ng/mL Urine Cocaine Scre en (Negative) ng/mL U Marijuana (THC) Screen (Negative) ng/mL 02/04/20 02/04/20 Range/Units 05:43 06:20 WBC (4.0-10.0) 10^3/ uL RBC (4.1-5.3) 10^6/u L Hgb (11.7-16.6) g/dL Hct (42.0-52.0) % MCV (80-94) fL MCH (28.0-34.0) pg MCHC (30.0-36.0) g/dL RDW (12.1-15.1) % Plt Count (130-400) 10^3/c mm MPV (7.4-10.4) fL Neut % (Auto) % Lymph % (Auto) % [place] % (Auto) % Eos % (Auto) % Baso % (Auto) % Neut # (Auto) (1.8-7.7) 10^3/u L Lymph # (Auto) (0.8-4.8) 10^3/u L [place] # (Auto) (0.2-0.9) 10^3/u L Eos # (Auto) (0.0-0.8) 10^3/u L Baso # (Auto) (0.0-0.1) 10^3/u L Nucleated RBC % (a uto) % Nucleated RBCs # /100WBC Sodium (136-145) mmol/L Potassium (3.5-5.1) mmol/L Chloride (98-107) mmol/L Carbon Dioxide (22-29) mmol/L Anion Gap (5-19) BUN (6-20) mg/dL Creatinine (0.7-1.2) mg/dL GFR Calculation (90-130) mL/min Glucose (65-115) mg/dL Calculated Osmolal ity (285-295) mOsm/k g Calcium (8.5-10.5) mg/dL Magnesium (1.7-2.3) mg/dL Total Bilirubin (0.15-1.2) mg/dL AST (0-40) U/L ALT (0-41) U/L Alkaline Phosphata se (40-130) IU/L Ammonia 10 L (16-60) umol/L Creatine Kinase (39-308) U/L Troponin T Baselin e (0-15) ng/mL Total Protein (6.6-8.7) g/dL Albumin (3.5-5.2) g/dL Globulin (1.3-4.6) g/dL Urine Opiates Scre en Negative (Negative) ng/mL Ur Barbiturates Sc reen Negative (Negative) ng/mL Ur Phencyclidine S crn Negative (Negative) ng/mL Ur Amphetamines Sc reen Negative (Negative) ng/mL U Benzodiazepines Scrn Positive H (Negative) ng/mL Urine Cocaine Scre en Negative (Negative) ng/mL U Marijuana (THC) Screen Negative (Negative) ng/mL EKG Data^: EKG 1: Attestation: I personally reviewed and interpreted this EKG as follows: EKG interpretation date: 02/04/20 EKG interpretation time: 05:18 Interpretation: Normal sinus rhythm at 97 beats a minute, normal intervals, no blocks, LVH, nonspecific ST and T wave changes. Discharge Plan Discharge Patient Disposition: Left Against Medical Advice Clinical Impression: Bay disease Condition: Serious Prescriptions: No Action furosemide [Lasix] 20 mg tablet 20 mg PO QAM PRN (Reason: Edema) RF: 0 sodium bicarbonate 650 mg tablet 650 mg PO TID Qty: 90 RF: 1 clopidogrel 75 mg tablet 75 mg PO DAILY RF: 0 metoprolol succinate 25 mg tablet extended release 24 hr 25 mg PO DAILY RF: 0 amlodipine [Norvasc] 10 mg tablet 10 mg PO DAILY RF: 0 oxycodone 10 mg tablet 10 mg PO Q6H PRN (Reason: Pain) RF: 0 aspirin [Adult Aspirin Regimen] 81 mg tablet,delayed release (DR/EC) 81 mg PO DAILY RF: 0 famotidine [Pepcid] 20 mg tablet 20 mg PO DAILY RF: 0 cholecalciferol (vitamin D3) 1,000 unit capsule 1,000 unit PO DAILY RF: 0 Referrals: Dieter Weinstein MD [Physician] - Discharge Diet: Usual diet Discharge Activity: Limit activity as instructed Activity Restrictions/Additional Instructions: Recommend that you stay here in the hospital for observation and IV fluids and m onitoring of your labs. You have elected to leave AGAINST MEDICAL ADVICE they are welcome to return at any time should your symptoms worsen. By leaving AGAINST MEDICAL ADVICE you do put yourself at risk of worsening of your disease process which may lead to permanent renal failure as well as other complications up to and including . Discharge Date/Time: 02/04/20 06:50 Sign Out Sign Out Data: Patient Sign Out occurred on 02/04/20 at 06:28. Patient's care was discussed, and care was transferred from Candis Tello to Rd Paul DO. Sign Out Comment: Case turned over to Dr. Santos at change of shift. Last updated by Candis Tello at 02/04/20 05:24 Coding Level of Care Code ED Pyridine Recovery Operator for Chg Fwd Exam Comprehensive Documented by User: Rd Paul DO 02/04/20 06:50 HPI - Back Pain/Injury General: Chief Complaint: Back Pain/Injury Stated Complaint: hip pain Time Seen by Provider: 02/04/20 04:53 History of Present Illness: HPI Narrative: Care assumed a change of shift. This is a 44-year-old male who seen him several times before he is a history of McArdles disease. He goes into rhabdomyolysis and renal failure easily. His CPK and creatinine reviewed today see the lab portion of the chart. He is complaining of some back pain he seems to be mildly confused but is aware of time place and person his had said he was claiming he was going to a local hardware store that was closed this evening he still states he just drives there and sits in the parking lot or turns around there and go and leaves. At this time he does not appear to have acute psychosis. MD elicited complaint: back pain Pertinent past history: prior back pain and other (Bay's disease) Associated symptoms: Deny abdominal pain, chills, difficulty walking, dysuria, fatigue, fever(s), hematuria, nausea, syncope, urinary urgency or vomiting Review of Systems Const: Denies: fever, chills, body aches, fatigue, malaise or night sweats Eyes: Denies: change in vision or blurry vision ENMT: Denies: throat pain, oral sores/lesions, dental pain, nasal discharge or nasal congestion Card: Denies: chest pain, palpitations, irregular heart rhythm, edema, syncope, shortness of breath on exertion, shortness of breath when lying down or leg pain with exertion Resp: Denies: shortness of breath, productive cough, non-productive cough or wheezing GI: Denies: abdominal pain, nausea, vomiting, vomiting blood, coffee grounds in vomit, difficulty swallowing, heartburn/indigestion, diarrhea, constipation, cramping, blood in stool or black tarry stool : Denies: flank pain, difficulty urinating, painful urination, urinary frequency, urinary urgency, urinary incontinence or blood in urine Musc: Denies: neck pain, back pain, extremity pain, extremity swelling, joint pain or joint swelling Skin/Breast: Denies: rash, itching or redness Neuro: Denies: headache, numbness in extremities, weakness in extremities, changes in sensation, lack of coordination, difficulty walking, frequent falls, dizziness, vertigo or confusion Psych: Denies: anxiety, depression, loss of interest, visual hallucinations, auditory hallucinations, suicidal ideation or homicidal ideation Endo: Denies: excessive urination, excessive thirst, tired all the time or cold intolerance Micky/Lymph: Denies: easy bruising, easy bleeding, petechiae, enlarged lymph nodes or tender lymph nodes PFSH ED PFSH: Medical History Acute depression Acute non-recurrent pansinusitis Acute on chronic renal insufficiency Anxiety Arteriosclerotic heart disease Chronic kidney disease, unspecified Chronic rhinitis Closed displaced fracture of distal phalanx of toe of left foot Common migraine without intractability Edema, unspecified Essential (primary) hypertension GERD (gastroesophageal reflux disease) Insomnia, unspecified penitentiary (current) use of opiate analgesic Bay disease Metabolic encephalopathy Obstructive sleep apnea Shortness of breath Tremor, unspecified Venous insufficiency (chronic) (peripheral) Vitamin D deficiency, unspecified Surgical History H/O angioplasty H/O arthroscopic knee surgery H/O heart surgery Hx of tonsillectomy S/P hemodialysis catheter insertion Family History Mother Hypertension Diabetes Social History (Reviewed 02/04/20 @ 06:32 by VIJAYA Hunter Smoking and tobacco status: current every day smoker cigarettes Packs smoked per day: 0.5 Alcohol intake: never Household members: spouse Marital status: Current occupational status: unemployed History of recent travel: No Current gender identity: Male Physical Exam Const: COMMON NORMALS: no apparent distress GENERAL APPEARANCE: cooperative and comfortable ORIENTATION/CONSCIOUSNESS: Yes awake, Yes oriented to person, Yes oriented to place and Yes oriented to time HENMT: COMMON NORMALS: normocephalic, head/scalp atraumatic, hearing grossly normal bilaterally, external ears normal, EAC's normal, TM's normal bilaterally, nasal mucous membranes and turbinates normal, moist oral mucous membranes and oropharynx normal HEAD & SCALP: normocephalic and atraumatic NOSE: nasal mucous membranes and turbinates normal EXTERNAL EAR: Yes external ears normal EXTERNAL AUDITORY CANAL: EAC's normal TYMPANIC MEMBRANE: TM's normal bilaterally Eye: COMMON NORMALS: PERRL, EOMs intact bilaterally, conjunctivae normal and no scleral icterus CONJUNCTIVA: Yes conjunctivae normal PUPIL: Yes PERRL Neck/C-Spine: COMMON NORMALS: full ROM, no lymphadenopathy, supple and no JVD Lymph: LYMPHATIC: no lymphadenopathy noted and no lymphedema noted Resp: COMMON NORMALS: normal respiratory effort, no retractions, no use of accessory muscles and clear to auscultation bilaterally AUSCULTATION: clear to auscultation bilaterally Cardio: COMMON NORMALS: no JVD, regular rate, regular rhythm and no murmurs RATE: regular rate RHYTHM: regular rhythm GI: COMMON NORMALS: soft to palpation and no hepatosplenomegaly AUSCULTATION: Yes normoactive bowel sounds PALPATION: Yes soft, No tender, No guarding and Yes no hepatosplenomegaly Extremity: COMMON NORMALS: normal to inspection, normal capillary refill, no clubbing, cyanosis or edema, no calf tenderness and no pedal edema Neuro: SENSORIUM/ORIENTATION: Yes oriented to person, Yes oriented to place and Yes oriented to time Course Vital Signs: Vital signs: Vital Signs Temperature 98.2 F 02/04/20 04:44 Pulse Rate 96 02/04/20 06:39 Respiratory Rate 18 02/04/20 06:39 Blood Pressure 148/97 02/04/20 06:39 Pulse Oximetry 100 02/04/20 06:39 MDM - Back Pain/Injury MDM Narrative: Medical decision making narrative: In the past when he gets into rhabdomyolysis he will have acute psychotic episodes and we have had a 96 him to be able to treat him appropriately to get him recovered. Reviewed his labs he is not in rhabdomyolysis. While some of his behaviors are a little bit off he is not an immediate danger to himself or others and he is not in a health crisis that would justify putting him on a 96-hour hold at this time. He refuses to stay I think it would be in his best interest to stay get some more IV fluids at least in the emergency room for a time but he does not want to do this so we will have to let him sign out AMA. I discussed with him that if he leaves his symptoms may worsen as they have in the past he may go into rhabdomyolysis and acute renal failure again he expresses understanding of this he knows what he needs to do to prevent it and wishes to leave anyway. He expresses understanding that his symptoms may very well get worse it could cause him to go into severe rhabdomyolysis leading to renal failure while it has been reversible in the past it may not be in the usual. He states he knows that if he drinks enough water he can prevent that. Lab Data: Labs: Lab Results 02/04/20 02/04/20 02/04/20 Range/Units 05:37 05:37 05:37 WBC 6.8 (4.0-10.0) 10^3/ uL RBC 5.43 H (4.1-5.3) 10^6/u L Hgb 15.6 (11.7-16.6) g/dL Hct 49.0 (42.0-52.0) % MCV 90.2 (80-94) fL MCH 28.7 (28.0-34.0) pg MCHC 31.8 (30.0-36.0) g/dL RDW 15.2 H (12.1-15.1) % Plt Count 289 (130-400) 10^3/c mm MPV 9.8 (7.4-10.4) fL Neut % (Auto) 63.0 % Lymph % (Auto) 27.1 % [place] % (Auto) 7.4 % Eos % (Auto) 1.8 % Baso % (Auto) 0.6 % Neut # (Auto) 4.3 (1.8-7.7) 10^3/u L Lymph # (Auto) 1.8 (0.8-4.8) 10^3/u L [place] # (Auto) 0.5 (0.2-0.9) 10^3/u L Eos # (Auto) 0.1 (0.0-0.8) 10^3/u L Baso # (Auto) 0.0 (0.0-0.1) 10^3/u L Nucleated RBC % (a uto) 0 % Nucleated RBCs # 0.0 /100WBC Sodium 140 (136-145) mmol/L Potassium 3.6 (3.5-5.1) mmol/L Chloride 101 (98-107) mmol/L Carbon Dioxide 22 (22-29) mmol/L Anion Gap 20.6 H (5-19) BUN 23 H (6-20) mg/dL Creatinine 2.2 H (0.7-1.2) mg/dL GFR Calculation 32.4 L (90-130) mL/min Glucose 98 (65-115) mg/dL Calculated Osmolal ity 287 (285-295) mOsm/k g Calcium 10.9 H (8.5-10.5) mg/dL Magnesium 2.6 H (1.7-2.3) mg/dL Total Bilirubin 0.3 (0.15-1.2) mg/dL AST 24 (0-40) U/L ALT 24 (0-41) U/L Alkaline Phosphata se 107 (40-130) IU/L Ammonia (16-60) umol/L Creatine Kinase 202 (39-308) U/L Troponin T Baselin e 19 H (0-15) ng/mL Total Protein 8.3 (6.6-8.7) g/dL Albumin 5.4 H (3.5-5.2) g/dL Globulin 2.9 (1.3-4.6) g/dL Urine Opiates Scre en (Negative) ng/mL Ur Barbiturates Sc reen (Negative) ng/mL Ur Phencyclidine S crn (Negative) ng/mL Ur Amphetamines Sc reen (Negative) ng/mL U Benzodiazepines Scrn (Negative) ng/mL Urine Cocaine Scre en (Negative) ng/mL U Marijuana (THC) Screen (Negative) ng/mL 02/04/20 02/04/20 Range/Units 05:43 06:20 WBC (4.0-10.0) 10^3/ uL RBC (4.1-5.3) 10^6/u L Hgb (11.7-16.6) g/dL Hct (42.0-52.0) % MCV (80-94) fL MCH (28.0-34.0) pg MCHC (30.0-36.0) g/dL RDW (12.1-15.1) % Plt Count (130-400) 10^3/c mm MPV (7.4-10.4) fL Neut % (Auto) % Lymph % (Auto) % [place] % (Auto) % Eos % (Auto) % Baso % (Auto) % Neut # (Auto) (1.8-7.7) 10^3/u L Lymph # (Auto) (0.8-4.8) 10^3/u L [place] # (Auto) (0.2-0.9) 10^3/u L Eos # (Auto) (0.0-0.8) 10^3/u L Baso # (Auto) (0.0-0.1) 10^3/u L Nucleated RBC % (a uto) % Nucleated RBCs # /100WBC Sodium (136-145) mmol/L Potassium (3.5-5.1) mmol/L Chloride (98-107) mmol/L Carbon Dioxide (22-29) mmol/L Anion Gap (5-19) BUN (6-20) mg/dL Creatinine (0.7-1.2) mg/dL GFR Calculation (90-130) mL/min Glucose (65-115) mg/dL Calculated Osmolal ity (285-295) mOsm/k g Calcium (8.5-10.5) mg/dL Magnesium (1.7-2.3) mg/dL Total Bilirubin (0.15-1.2) mg/dL AST (0-40) U/L ALT (0-41) U/L Alkaline Phosphata se (40-130) IU/L Ammonia 10 L (16-60) umol/L Creatine Kinase (39-308) U/L Troponin T Baselin e (0-15) ng/mL Total Protein (6.6-8.7) g/dL Albumin (3.5-5.2) g/dL Globulin (1.3-4.6) g/dL Urine Opiates Scre en Negative (Negative) ng/mL Ur Barbiturates Sc reen Negative (Negative) ng/mL Ur Phencyclidine S crn Negative (Negative) ng/mL Ur Amphetamines Sc reen Negative (Negative) ng/mL U Benzodiazepines Scrn Positive H (Negative) ng/mL Urine Cocaine Scre en Negative (Negative) ng/mL U Marijuana (THC) Screen Negative (Negative) ng/mL Discharge Plan Discharge Patient Disposition: Left Against Medical Advice Clinical Impression: Bay disease Condition: Serious Prescriptions: No Action furosemide [Lasix] 20 mg tablet 20 mg PO QAM PRN (Reason: Edema) RF: 0 sodium bicarbonate 650 mg tablet 650 mg PO TID Qty: 90 RF: 1 clopidogrel 75 mg tablet 75 mg PO DAILY RF: 0 metoprolol succinate 25 mg tablet extended release 24 hr 25 mg PO DAILY RF: 0 amlodipine [Norvasc] 10 mg tablet 10 mg PO DAILY RF: 0 oxycodone 10 mg tablet 10 mg PO Q6H PRN (Reason: Pain) RF: 0 aspirin [Adult Aspirin Regimen] 81 mg tablet,delayed release (DR/EC) 81 mg PO DAILY RF: 0 famotidine [Pepcid] 20 mg tablet 20 mg PO DAILY RF: 0 cholecalciferol (vitamin D3) 1,000 unit capsule 1,000 unit PO DAILY RF: 0 Referrals: Dieter Weinstein MD [Physician] - Discharge Diet: Usual diet Discharge Activity: Limit activity as instructed Activity Restrictions/Additional Instructions: Recommend that you stay here in the hospital for observation and IV fluids and monitoring of your labs. You have elected to leave AGAINST MEDICAL ADVICE they are welcome to return at any time should your symptoms worsen. By leaving AGAINST MEDICAL ADVICE you do put yourself at risk of worsening of your disease process which may lead to permanent renal failure as well as other complications up to and including . Discharge Date/Time: 02/04/20 06:50 Sign Out Sign Out Data: Patient Sign Out occurred on 02/04/20 at 06:28. Patient's care was discussed, and care was transferred from Candis Tello to Rd Paul DO. Sign Out Comment: Case turned over to Dr. Santos at change of shift. Last updated by Candis Tello at 02/04/20 05:24 Coding Level of Care Code ED Pyridine Recovery Operator for Chg Fwd Exam Comprehensive
[2020-02-04 05:50] LABS: Basophils % 0.6 %; Eosinophils # 0.1 10^3/uL (0.0-0.8); Eosinophils % 1.8 %; Hemoglobin 15.6 g/dL (11.7-16.6); Lymphocytes # 1.8 10^3/uL (0.8-4.8); Lymphocytes % 27.1 %; Mean Corpuscular HGB Conc 31.8 g/dL (30.0-36.0); Mean Corpuscular Hemoglobin 28.7 pg (28.0-34.0); Mean Corpuscular Volume 90.2 fL (80-94); Mean Platelet Volume 9.8 fL (7.4-10.4); Monocytes # 0.5 10^3/uL (0.2-0.9); Monocytes % 7.4 %; Neutrophils # 4.3 10^3/uL (1.8-7.7); Nucleated Red Blood Cells % 0 %; Platelet Count 289 10^3/cmm (130-400); Red Blood Count 5.43 10^6/uL (4.1-5.3); Red Cell Distribution Width 15.2 % (12.1-15.1); White Blood Count 6.8 10^3/uL (4.0-10.0)
--- NOTE | 2020-02-04 05:50 | PC.NURSE ---
Pt continually removing O2 sensor, bp cuff and cardiac leads. Pt only agreeable while in room.
[2020-02-04 06:08] LABS: Alanine Aminotransferase 24 U/L (0-41); Albumin Level 5.4 g/dL (3.5-5.2); Alkaline Phosphatase 107 IU/L (40-130); Anion Gap 20.6 (5-19); Aspartate Amino Transferase 24 U/L (0-40); Blood Urea Nitrogen 23 mg/dL (6-20); Calcium 10.9 mg/dL (8.5-10.5); Carbon Dioxide 22 mmol/L (22-29); Chloride 101 mmol/L (98-107); Creatine Phosphokinase 202 U/L (39-308); Globulin 2.9 g/dL (1.3-4.6); Glomerular Filtration Rate 32.4 mL/min (90-130); Glucose 98 mg/dL (65-115); Magnesium 2.6 mg/dL (1.7-2.3); Osmolality Calculated 287 mOsm/kg (285-295); Potassium 3.6 mmol/L (3.5-5.1); Sodium 140 mmol/L (136-145); Total Bilirubin 0.3 mg/dL (0.15-1.2); Total Protein 8.3 g/dL (6.6-8.7)
[2020-02-04 06:09] LABS: Troponin(5th) Baseline 19 ng/mL (0-15)
[2020-02-04 06:13] LABS: Ammonia 10 umol/L (16-60)
--- NOTE | 2020-02-04 06:14 | PC.NURSE ---
Pt has removed IVs.
--- NOTE | 2020-02-04 06:15 | PC.NURSE ---
Patient attempted to leave department. Pt agreed to return to room and is agreeable to treatment at proper time. Pt has flight of ideas.
[2020-02-04 06:39] VITALS: BP 148/97; PULSE 96; RESP 18; O2SAT 100
--- NOTE | 2020-02-04 06:45 | PC.NURSE ---
Pt states that is in parking lot and waiting to take him home.
[2020-02-04 06:48] LABS: Amphetamines Screen Urine Negative (Negative); Barbiturates Screen Urine Negative (Negative); Benzodiazepines Screen Urine Positive (Negative); Cocaine Screen Urine Negative (Negative); Opiate Screen Urine Negative (Negative); PCP Screen Urine Negative (Negative); THC Screen Urine Negative (Negative)
[2020-02-04 06:53] LABS: Urine Appearance Clear (CLEAR); Urine Color Yellow (Yellow); pH Urine 5 (5-7)
[2020-02-04 06:54] LABS: Bilirubin Urine Neg (NEGATIVE); Blood Urine Trace (Negative); Glucose Urine UA Norm (Normal); Ketones Urine Negative (Negative); Leukocyte Esterase Urine Negative (Negative); Nitrate Urine Negative (Negative); Protein Urine Neg (Negative); Specific Gravity, Urine 1.015 (1.005-1.030); Urobilinogen Urine Norm (Negative)
[2020-02-04 06:56] LABS: Add Urine Culture? No; Bacteria Urine TRACE; Mucus Urine TRACE; RBC Urine 0-4 /hpf (0-2); Squamous Epithelial Cell Urine RARE (0-5); WBC Urine 0-4 /hpf (0-5)
--- NOTE | 2020-02-04 06:58 | PC.NURSE ---
Pt agreed to wait in back in room and agreed to give me his keys. Informed patient that we will give him his keys when his arrives to pick him up.
== END 2020-02-04 06:50 | disposition left against medical advice (07) ==
PROVIDERS: Emergency Medicine; Emergency Provider Family Medicine; Family Provider Family Medicine; PCP Family Medicine
DX: E74.04 McArdle disease (principal); Z53.29 Procedure and treatment not carried out because of patient's decision for other reasons; I12.9 Hypertensive chronic kidney disease with stage 1 through stage 4 chronic kidney disease, or unspecified chronic kidney disease; N18.9 Chronic kidney disease, unspecified; G93.41 Metabolic encephalopathy; I87.2 Venous insufficiency (chronic) (peripheral); E55.9 Vitamin D deficiency, unspecified; K21.9 Gastro-esophageal reflux disease without esophagitis; F17.210 Nicotine dependence, cigarettes, uncomplicated; Z79.82 Long term (current) use of aspirin
CPT/HCPCS: 12345; 80053; 80306; 81001; 82140; 82550; 83735; 84484; 85025; 93005; 96360; 96361; 99283; 99284

== ENCOUNTER 2020-02-06 06:20 | Inpatient (IN) | payer BC, MEDICAID, SELFPAY ==
[2020-02-06 06:22] VITALS: PULSE 105; RESP 18; TEMP 37.1; O2SAT 97; BMI 23.5
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
[2020-02-06 07:40] LABS: Basophils % 0.5 %; Eosinophils # 0.1 10^3/uL (0.0-0.8); Hematocrit 45.7 % (42.0-52.0); Hemoglobin 14.7 g/dL (11.7-16.6); Lymphocytes # 2.4 10^3/uL (0.8-4.8); Lymphocytes % 28.4 %; Mean Corpuscular HGB Conc 32.2 g/dL (30.0-36.0); Mean Corpuscular Hemoglobin 28.8 pg (28.0-34.0); Mean Corpuscular Volume 89.4 fL (80-94); Mean Platelet Volume 9.6 fL (7.4-10.4); Monocytes # 0.7 10^3/uL (0.2-0.9); Monocytes % 8.9 %; Neutrophils # 5.1 10^3/uL (1.8-7.7); Neutrophils % 60.8 %; Nucleated Red Blood Cells % 0 %; Platelet Count 350 10^3/cmm (130-400); Red Blood Count 5.11 10^6/uL (4.1-5.3); Red Cell Distribution Width 15.4 % (12.1-15.1); White Blood Count 8.4 10^3/uL (4.0-10.0)
[2020-02-06 07:57] LABS: Alanine Aminotransferase 24 U/L (0-41); Albumin Level 5.1 g/dL (3.5-5.2); Alkaline Phosphatase 106 IU/L (40-130); Anion Gap 19.6 (5-19); Aspartate Amino Transferase 35 U/L (0-40); Blood Urea Nitrogen 23 mg/dL (6-20); Calcium 10.3 mg/dL (8.5-10.5); Carbon Dioxide 22 mmol/L (22-29); Chloride 101 mmol/L (98-107); Globulin 2.4 g/dL (1.3-4.6); Glomerular Filtration Rate 25.6 mL/min (90-130); Glucose 93 mg/dL (65-115); Osmolality Calculated 284 mOsm/kg (285-295); Potassium 3.6 mmol/L (3.5-5.1); Salicylate 1.3 mg/dL (3-10); Sodium 139 mmol/L (136-145); Total Bilirubin 0.4 mg/dL (0.15-1.2); Total Protein 7.5 g/dL (6.6-8.7)
[2020-02-06 07:59] LABS: Ammonia 19 umol/L (16-60)
--- NOTE | 2020-02-06 08:00 | PC.NURSE ---
Pt provided with urinal for urine sample. Pt states I literally just went, I don't think I can go again . Pt has known CKD and states he only voids approx twice a day. KIZZY Reeves notified.
[2020-02-06 08:02] LABS: Acetaminophen < 5.0 ug/mL (10-30); Alcohol Level < 10 mg/dL (0-10)
[2020-02-06 08:03] LABS: Creatine Phosphokinase 540 U/L (39-308)
--- NOTE | 2020-02-06 08:58 | PC.NURSE ---
[address] PIV without success. Patient states he will drink the equivalent in water by mouth. ED Physician notified.
[2020-02-06 09:32] LABS: Amphetamines Screen Urine Negative (Negative); Barbiturates Screen Urine Negative (Negative); Benzodiazepines Screen Urine Positive (Negative); Cocaine Screen Urine Negative (Negative); Opiate Screen Urine Negative (Negative); PCP Screen Urine Positive (Negative); THC Screen Urine Negative (Negative)
--- NOTE | 2020-02-06 09:37 | PC.NURSE ---
Patient pacing around the room asking to speak with any available film processing supervisor, greenhouse manager speaking with patient now.
--- NOTE | 2020-02-06 09:40 | PC.NURSE ---
16oz water intake. Patient given 16 more oz.
--- NOTE | 2020-02-06 10:57 | PC.NURSE ---
Intake: 16oz water.
--- NOTE | 2020-02-06 11:36 | PC.NURSE ---
Pt becoming increasingly agitated and hitting the door and yelling at staff. Paulino from security at bedside. KIZZY Reeves notified. VO received to give 10mg Geodon IM once and 2mg Ativan IM once.
[2020-02-06] MEDS: LORazepam 2 mg/mL INJ 1 mL IM (11:42)
[2020-02-06] MEDS: ziprasidone 20 mg/mL SDV 10 MG IM (11:43)
--- NOTE | 2020-02-06 12:13 | PC.NURSE ---
Attempted to call report to NPU, spoke with Camille. She said no one was available for report right now and she would call me back when they can take report. ED Charge nurse notified.
[2020-02-06 12:14] VITALS: BP 128/96; PULSE 100; RESP 17; TEMP 36.7; O2SAT 97
[2020-02-06 12:25] VITALS: BP 128/90; PULSE 100; RESP 17; TEMP 36.7; O2SAT 97
[2020-02-06 13:05] VITALS: BP 134/94; PULSE 95; RESP 18; TEMP 36.4; O2SAT 99
[2020-02-06] MEDS: OLANZapine ODT 5 MG TABLET PO (15:50)
[2020-02-06] MEDS: nicotine 2 mg Gum BUCCAL (15:50)
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
[2020-02-06] MEDS: lithium carbonate 300 mg Capsule PO (17:50)
[2020-02-06 20:11] LABS: Free T4 Free Thyroxine 1.22 ng/dL (0.82-1.77); Thyroid Stimulating Hormone 0.38 uIU/mL (0.27-4.20)
[2020-02-06 20:57] VITALS: BP 135/86; PULSE 90; RESP 20; TEMP 36.6; O2SAT 96
[2020-02-06] MEDS: trazodone 50 mg Tablet PO (20:59)
[2020-02-07 06:00] VITALS: BP 120/70; PULSE 79; RESP 19; TEMP 36.9; O2SAT 98
[2020-02-07] MEDS: cholecalciferol (vitamin D3) 1,000 unit Tablet 1000 UNIT PO (09:33)
[2020-02-07] MEDS: famotidine 20 mg Tablet PO (09:33)
[2020-02-07] MEDS: lithium carbonate 300 mg Capsule PO (09:33)
[2020-02-07] MEDS: amlodipine 10 mg Tablet PO (09:33)
[2020-02-07] MEDS: aspirin 81 mg EC Tablet PO (09:34)
[2020-02-07] MEDS: metoprolol succinate ER (24 HR) 25 mg Tablet PO (09:34)
[2020-02-07] MEDS: clopidogrel 75 mg Tablet PO (09:34)
[2020-02-07] MEDS: sodium bicarbonate 650 mg Tablet PO (09:44)
--- NOTE | 2020-02-07 13:20 | PM.NDC ---
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 According to Henry, he was at home, earlier today, when he was awoken by the feeling of something in his back. He looked up briefly and was told to turn and face the other way, and is convinced it was a gun in his back. There were three people in his house and they told him to get up and walk towards his closet. He believes there was one female voice and two males voices. They had him get down on his knees, in front of his closet, and he just heard noises going on behind him. He was begging them to be quiet, according to him, so that they did not wake his son and his . So, they told him to stay forward and to keep busy, and they had him fold clothes; there were clothes on the ground of his closet and he started folding them. This was supposedly going on for about thirty minutes, he said. He reports he could tell they were going through his room and finally, he noted, that he did not hear them behind him and heard them walking down the steps to get out of the house, but that he did not hear them go down the complete set of steps, only a few of them. But, at that point, he turned around and said his room was ransacked and he looked around to figure out what happened, and he found that his oxycodone pills were gone that he filled the last week of December, and there was an envelope that he had signed that he had money in, that he was supposedly going to be using to travel down to his brother in [place], and they took these two things, but the laptop that stuff was near, they did not take, and there were a couple of other very easily taken and moved items, that they did not take. He reportedly got up from that, and never really reports checking on his son and , then called the police and tells them that this event occurred, but tells them he did not want to file a police report and that he just wanted them to know that there was somebody out there doing this kind of thing. He them commenced cleaning up the mess so that when the police arrived, after five minutes, they came in to find nothing appearing to be disturbed; actually, he said that three different photocopying equipment repairer cars arrived minutes apart, but the first one was at the five or seven minute jerad. He said that is because he cleaned everything up. Contact with his , by the emergency room, identifies that they did not hear anything and they were not awoken. The police put him on a 96-hour hold secondary to the fact that his story did not ross out, and he seemed somewhat elevated in his delivery of the story, and they were worried that he was psychotic. In the conversation with his , she reported a history of him being on Depakote, which she felt was successful, and that he has these cycles that end in strange outcomes, like this. He became very agitated when this underwriter solicitation director met with him briefly to tell him that we were not overturning the 96-hour hold, and wanted to see him and use the 96-hour period to evaluate further. He then went on to say that he never took the Depakote before, so his ?s report that he was doing better when the doctor put him on the Depakote was a lie, because he had never taken the medication. Additionally, out of the blue, he reported he needed to be discharged because this was his last Easter that he was going to be spending with his so; when he was asked to explain that, he reported that he was actually from his , and that after today and tomorrow he was leaving for [place] and never returning. There are all kinds of pieces to the story that just make his story more and more confusing, as he could not really explain why he and his were and , later saying it was because she had to deal with him and some of the things that go on with him. But then he denied that there was anything wrong. Ultimately, he was admitted to the unit. Once he was on the unit he started acting out. Security had to be called. He had to get prn medication. He was making phone calls and talking to his , and getting overly agitated. When we talked again, he said that he had, in fact, taken Depakote, but there may have been some elevation in his liver enzymes, so he stopped it. We discussed that fact that him choosing how to deliver the information, so that there seemed to be partial truths or half-truths, was really making it hard for his desire to be discharged off this 96-hour hold. He identified that he does, at times, need mood stabilization. 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 His may also be a nurse. We discussed the risks, benefits, and alternatives of starting [place], and he understood and agreed to proceed as is documented in this note. He was resistant to talk about symptoms, outside of saying that there are times where people identify that he needs something to stabilize his mood. Hospital Course Discharge Summary the patient was admitted to the adult psychiatric unit and provided the full-radius individual and group therapies as part of the unit protocol. He was placed in a supportive environment with available staff and medication monitoring. On admission, his creatinine kinase was elevated and his GFR was reduced. However, for his medical condition, these values were not out of the reasonable range for him historically and would not have accounted for the acute decompensation and delirium observed at the time of admission. The patient and I have interacted in the past and there has been a consistent concern that he was minimizing his degree of medication use with suspicion of a tendency toward whimsical self-regulation. It was discovered that he had been started on modafinil 1 week ago and a large number of the pills were missing. Toxicity to this medication did much to explain his decompensation. His mental status improved considerably once in a stable environment away from the modafinil. By hospital day #3, he was no longer an imminent risk to self or others. His was excepting for him to return home. We did discuss his medication history. He reported significant benefit with Depakote but had difficulty with hyperammonemia. He was highly motivated to be on some sort of mood stabilizer it has never been fully confirmed that he has ever met criteria for bipolar disorder. The compromise was met with a trial of topiramate 25 mg at bedtime. In addition, he did report that he had episodes of severe insomnia prior to each of his mental healthy compensations. This would also be reasonable in the presence of modafinil abuse. He was provided trazodone 150 mg at bedtime as needed for insomnia. His request to be discharged was then granted. Involuntary Hold Information 96 Hour Hold: 96 Hour Involuntary Admission: Yes 96 Hour Hold Ending Date: 02/11/20 96 Hour Hold Ending Time: 12:01 Mental Status Exam MSE Comments: Discharge Mental Status Exam: Appearance: hygiene is good; no gross neurological deficits., gait is unremarkable; AIMS=0 Speech: Speech is of normal rate and rhythm and easily understood. Thought processes: Thought processes are abstract. Judgment is adequate for safety. Associations: intact Psychotic processes: There is no indication of guarding or paranoia. There is no attention to the internal stimuli. Auditory and visual hallucinations are denied. Judgment: Insight is fair. Problem solving skills are adequate for safety. Orientation: The patient is oriented to person, place time and situation. Memory: no deficits noted in immediate, intermediate, or remote spheres. Attention: The patient is alert and interpersonally engaged. Language: Verbalizations are coherent. Fund of knowledge: Fund of knowledge is adequate. Affect/Mood: Affect is consistent with a euthymic mood. denied suicidal ideation Affective range is appropriate. Psychosis: perception unimpaired except through cognitive distortion; reality testing intact. Discharge Data Data Completed and Pending: Labs from last 24 hours 02/06/20 19:20 TSH 0.38 Free T4 1.22 Vitals: Last Vital Signs Temp 98.4 F 02/07/20 06:00 Pulse 79 02/07/20 06:00 Resp 19 H 02/07/20 06:00 BP 120/70 02/07/20 06:00 Pulse Ox 98 02/07/20 06:00 Discharge Plan Discharge Patient Disposition: Home, Self-Care Condition: Stable Prescriptions: New topiramate 25 mg Tablet 25 mg PO BEDTIME Qty: 30 RF: 2 trazodone 150 mg Tablet 150 mg PO BEDTIME PRN (Reason: Sleep) Qty: 30 RF: 2 Continued furosemide [Lasix] 20 mg tablet 20 mg PO QAM PRN (Reason: Edema) RF: 0 sodium bicarbonate 650 mg tablet 650 mg PO TID Qty: 90 RF: 1 clopidogrel 75 mg tablet 75 mg PO DAILY RF: 0 metoprolol succinate 25 mg tablet extended release 24 hr 25 mg PO DAILY RF: 0 amlodipine [Norvasc] 10 mg tablet 10 mg PO DAILY RF: 0 oxycodone 10 mg tablet 10 mg PO Q6H PRN (Reason: Pain) RF: 0 aspirin [Adult Aspirin Regimen] 81 mg tablet,delayed release (DR/EC) 81 mg PO DAILY RF: 0 famotidine [Pepcid] 20 mg tablet 20 mg PO DAILY RF: 0 cholecalciferol (vitamin D3) 1,000 unit capsule 1,000 unit PO DAILY RF: 0 Discharge Orders: Discharge Order (Routine); Ordered 02/07/20 Ordered By: Guillermo Harris Referrals: [facility] [Outside] - 7-10 days (Appointments were made in December for a psychiatric evaluation with Dr. Sanchez and therapy with Glenis Ramirez that were not attended. You may call to see if these can be rescheduled. ) Hina Zaragoza DO [Primary Care Provider] - 4-7 days Discharge Attestations NPU Time Spent in Discharge Care*: greater than 30 min Coding Level of Care Code Acute Tipple Mechanic for [facility] Fwd Diagnoses Bay disease E74.04 Bipolar 1 disorder F31.9
[2020-02-07 13:23] VITALS: BP 120/70; PULSE 79; RESP 19; TEMP 36.9; O2SAT 98
[2020-02-07 13:34] VITALS: BP 125/87; PULSE 85; RESP 18; TEMP 36.8; O2SAT 98
== END 2020-02-07 13:57 | disposition home or self-care (01) | DRG 885 ==
LOC: ER 11:52 → NP 11:53
PROVIDERS: Admitting Provider Psychiatry & Neurology Psychiatry; Emergency Provider Physician Assistant; Family Provider Family Medicine; PCP Family Medicine; Visit Provider Psychiatry & Neurology Psychiatry
DX: F23 Brief psychotic disorder (principal); E74.04 McArdle disease; F31.9 Bipolar disorder, unspecified; Z79.02 Long term (current) use of antithrombotics/antiplatelets; Z79.82 Long term (current) use of aspirin; F17.210 Nicotine dependence, cigarettes, uncomplicated
CPT/HCPCS: 12345; 36415; 80053; 80306; 80307; 82140; 82550; 84439; 84443; 85025; 96372; 99284; J2060; J3486

== ENCOUNTER → 2020-02-11 08:03 | Outpatient (BNVA) | payer BC, MEDICAID, SELFPAY | PROVIDERS: Family Provider Family Medicine; PCP Family Medicine; Visit Provider Counselor Professional | DX: F31.9 Bipolar disorder, unspecified (principal) | CPT/HCPCS: 90834 ==

== ENCOUNTER 2020-02-21 10:32 | Outpatient (RCR) | payer BC, SELFPAY ==
[2020-02-14 09:59] LABS: Basophils # 0.1 10^3/uL (0.0-0.1); Basophils % 0.9 %; Eosinophils # 0.1 10^3/uL (0.0-0.8); Eosinophils % 2.6 %; Hematocrit 44.6 % (42.0-52.0); Hemoglobin 14.1 g/dL (11.7-16.6); Lymphocytes # 1.5 10^3/uL (0.8-4.8); Lymphocytes % 27.9 %; Mean Corpuscular HGB Conc 31.6 g/dL (30.0-36.0); Mean Corpuscular Hemoglobin 29.1 pg (28.0-34.0); Mean Corpuscular Volume 92.1 fL (80-94); Mean Platelet Volume 9.6 fL (7.4-10.4); Monocytes # 0.5 10^3/uL (0.2-0.9); Monocytes % 8.7 %; Neutrophils # 3.2 10^3/uL (1.8-7.7); Neutrophils % 59.5 %; Nucleated Red Blood Cells % 0 %; Platelet Count 308 10^3/cmm (130-400); Red Blood Count 4.84 10^6/uL (4.1-5.3); Red Cell Distribution Width 15.6 % (12.1-15.1); White Blood Count 5.3 10^3/uL (4.0-10.0)
[2020-02-14 10:26] LABS: Ammonia 17 umol/L (16-60)
[2020-02-14 10:31] LABS: Alanine Aminotransferase 17 U/L (0-41); Albumin Level 4.6 g/dL (3.5-5.2); Alkaline Phosphatase 75 IU/L (40-130); Anion Gap 16.1 (5-19); Aspartate Amino Transferase 16 U/L (0-40); Blood Urea Nitrogen 17 mg/dL (6-20); Calcium 9.8 mg/dL (8.5-10.5); Carbon Dioxide 27 mmol/L (22-29); Chloride 103 mmol/L (98-107); Creatine Phosphokinase 79 U/L (39-308); Globulin 2.3 g/dL (1.3-4.6); Glomerular Filtration Rate 34.2 mL/min (90-130); Glucose 97 mg/dL (65-115); Osmolality Calculated 290 mOsm/kg (285-295); Potassium 4.1 mmol/L (3.5-5.1); Sodium 142 mmol/L (136-145); Total Bilirubin 0.2 mg/dL (0.15-1.2); Total Protein 6.9 g/dL (6.6-8.7)
[2020-02-21 10:50] LABS: Basophils # 0.1 10^3/uL (0.0-0.1); Basophils % 0.7 %; Eosinophils # 0.2 10^3/uL (0.0-0.8); Eosinophils % 2.6 %; Hematocrit 50.3 % (42.0-52.0); Lymphocytes # 1.9 10^3/uL (0.8-4.8); Lymphocytes % 26.8 %; Mean Corpuscular HGB Conc 31.8 g/dL (30.0-36.0); Mean Corpuscular Hemoglobin 29.2 pg (28.0-34.0); Mean Corpuscular Volume 91.8 fL (80-94); Mean Platelet Volume 10.1 fL (7.4-10.4); Monocytes # 0.6 10^3/uL (0.2-0.9); Neutrophils # 4.3 10^3/uL (1.8-7.7); Neutrophils % 61.6 %; Nucleated Red Blood Cells % 0 %; Platelet Count 264 10^3/cmm (130-400); Red Blood Count 5.48 10^6/uL (4.1-5.3); Red Cell Distribution Width 15.5 % (12.1-15.1)
[2020-02-21 11:05] LABS: Ammonia 24 umol/L (16-60)
[2020-02-21 11:06] LABS: Alanine Aminotransferase 25 U/L (0-41); Albumin Level 5.1 g/dL (3.5-5.2); Alkaline Phosphatase 85 IU/L (40-130); Anion Gap 17.2 (5-19); Aspartate Amino Transferase 21 U/L (0-40); Blood Urea Nitrogen 25 mg/dL (6-20); Calcium 10.3 mg/dL (8.5-10.5); Carbon Dioxide 24 mmol/L (22-29); Chloride 104 mmol/L (98-107); Creatine Phosphokinase 110 U/L (39-308); Globulin 2.6 g/dL (1.3-4.6); Glomerular Filtration Rate 40.8 mL/min (90-130); Glucose 95 mg/dL (65-115); Osmolality Calculated 289 mOsm/kg (285-295); Potassium 4.2 mmol/L (3.5-5.1); Sodium 141 mmol/L (136-145); Total Bilirubin 0.3 mg/dL (0.15-1.2); Total Protein 7.7 g/dL (6.6-8.7)
== END 2020-02-24 23:59 | disposition home or self-care (01) ==
LOC: LAB 10:32
PROVIDERS: Family Provider Family Medicine; PCP Family Medicine; Visit Provider Family Medicine
DX: N17.0 Acute kidney failure with tubular necrosis (principal); E72.20 Disorder of urea cycle metabolism, unspecified
CPT/HCPCS: 36415; 80053; 82140; 82550; 85025

== ENCOUNTER → 2020-02-29 07:48 | Outpatient (BNVA) | payer BC, SELFPAY | PROVIDERS: Family Provider Family Medicine; PCP Family Medicine; Visit Provider Psychiatry & Neurology Psychiatry | DX: E74.04 McArdle disease (principal); F31.9 Bipolar disorder, unspecified | CPT/HCPCS: 99204 ==

== ENCOUNTER → 2020-03-01 08:55 | Outpatient (BNVA) | payer BC, MEDICAID, SELFPAY | PROVIDERS: Family Provider Family Medicine; Visit Provider Counselor Professional | DX: F31.9 Bipolar disorder, unspecified (principal) | CPT/HCPCS: 90834 ==

== ENCOUNTER 2020-03-06 08:34 | Outpatient (CLI) | payer MEDICAID, SELFPAY ==
[2020-03-06 09:13] LABS: Hematocrit 48.7 % (42.0-52.0); Hemoglobin 15.6 g/dL (11.7-16.6); Mean Corpuscular Hemoglobin 29.6 pg (28.0-34.0); Mean Corpuscular Volume 92.4 fL (80-94); Mean Platelet Volume 9.8 fL (7.4-10.4); Platelet Count 251 10^3/cmm (130-400); Red Blood Count 5.27 10^6/uL (4.1-5.3); Red Cell Distribution Width 15.9 % (12.1-15.1); White Blood Count 5.5 10^3/uL (4.0-10.0)
[2020-03-06 09:36] LABS: Alanine Aminotransferase 20 U/L (0-41); Albumin Level 4.7 g/dL (3.5-5.2); Alkaline Phosphatase 80 IU/L (40-130); Anion Gap 15.7 (5-19); Aspartate Amino Transferase 20 U/L (0-40); Blood Urea Nitrogen 25 mg/dL (6-20); Calcium 9.9 mg/dL (8.5-10.5); Carbon Dioxide 25 mmol/L (22-29); Chloride 105 mmol/L (98-107); Creatine Phosphokinase 96 U/L (39-308); Globulin 2.2 g/dL (1.3-4.6); Glomerular Filtration Rate 32.4 mL/min (90-130); Glucose 99 mg/dL (65-115); Osmolality Calculated 289 mOsm/kg (285-295); Potassium 4.7 mmol/L (3.5-5.1); Sodium 141 mmol/L (136-145); Total Bilirubin 0.3 mg/dL (0.15-1.2); Total Protein 6.9 g/dL (6.6-8.7)
[2020-03-06 09:40] LABS: Ammonia 10 umol/L (16-60)
[2020-03-06 09:47] LABS: Absolute Eosinophils 0.4 10^3/cmm (0.0-0.7); Absolute Segmented Neutrophil 3.5 10/cmm (1.6-7.1); Eosinophils 9 %; Lymphocytes 23 %; Monocytes Absolute 0.2 10^3/cmm (0.1-0.6); Platelet Estimate Normal (Normal); Segmented Neutrophils 64 %; Total Cells Counted 100 (0-100)
== END 2020-03-06 08:35 | disposition home or self-care (01) ==
LOC: LAB 08:37
PROVIDERS: Visit Provider Family Medicine
DX: N17.0 Acute kidney failure with tubular necrosis (principal); E72.20 Disorder of urea cycle metabolism, unspecified
CPT/HCPCS: 36415; 80053; 82140; 82550; 85007; 85027

== ENCOUNTER → 2020-03-08 12:37 | Outpatient (BNVA) | payer BC, MEDICAID, SELFPAY | PROVIDERS: Visit Provider Counselor Professional | DX: F33.2 Major depressive disorder, recurrent severe without psychotic features (principal) | CPT/HCPCS: 90832; 99214 ==

== ENCOUNTER → 2020-03-15 07:48 | Outpatient (BNVA) | payer BC, MEDICAID, SELFPAY | PROVIDERS: Family Provider Family Medicine; PCP Family Medicine; Visit Provider Psychiatry & Neurology Psychiatry | DX: E74.04 McArdle disease (principal); F31.9 Bipolar disorder, unspecified | CPT/HCPCS: 99214 ==

== ENCOUNTER 2020-03-22 09:26 | Outpatient (RCR) | payer BC, SELFPAY ==
[2020-03-01 11:53] LABS: Basophils % 0.6 %; Eosinophils # 0.3 10^3/uL (0.0-0.8); Hemoglobin 15.6 g/dL (11.7-16.6); Lymphocytes # 1.9 10^3/uL (0.8-4.8); Lymphocytes % 28.9 %; Mean Corpuscular HGB Conc 31.8 g/dL (30.0-36.0); Mean Corpuscular Hemoglobin 29.2 pg (28.0-34.0); Mean Corpuscular Volume 91.6 fL (80-94); Mean Platelet Volume 10.3 fL (7.4-10.4); Monocytes # 0.5 10^3/uL (0.2-0.9); Monocytes % 7.1 %; Neutrophils # 3.8 10^3/uL (1.8-7.7); Neutrophils % 58.1 %; Nucleated Red Blood Cells % 0 %; Platelet Count 213 10^3/cmm (130-400); Red Blood Count 5.35 10^6/uL (4.1-5.3); White Blood Count 6.6 10^3/uL (4.0-10.0)
[2020-03-01 12:11] LABS: Ammonia 24 umol/L (16-60)
[2020-03-01 12:14] LABS: Alanine Aminotransferase 22 U/L (0-41); Albumin Level 4.9 g/dL (3.5-5.2); Alkaline Phosphatase 91 IU/L (40-130); Anion Gap 15.4 (5-19); Aspartate Amino Transferase 21 U/L (0-40); Blood Urea Nitrogen 23 mg/dL (6-20); Calcium 10.1 mg/dL (8.5-10.5); Carbon Dioxide 25 mmol/L (22-29); Chloride 103 mmol/L (98-107); Creatine Phosphokinase 89 U/L (39-308); Globulin 2.6 g/dL (1.3-4.6); Glomerular Filtration Rate 34.2 mL/min (90-130); Glucose 126 mg/dL (65-115); Osmolality Calculated 286 mOsm/kg (285-295); Potassium 4.4 mmol/L (3.5-5.1); Sodium 139 mmol/L (136-145); Total Bilirubin 0.2 mg/dL (0.15-1.2); Total Protein 7.5 g/dL (6.6-8.7)
[2020-03-15 10:03] LABS: Basophils # 0.1 10^3/uL (0.0-0.1); Basophils % 0.7 %; Eosinophils # 0.1 10^3/uL (0.0-0.8); Eosinophils % 1.6 %; Hematocrit 47.6 % (42.0-52.0); Hemoglobin 15.3 g/dL (11.7-16.6); Lymphocytes # 1.9 10^3/uL (0.8-4.8); Lymphocytes % 28.6 %; Mean Corpuscular HGB Conc 32.1 g/dL (30.0-36.0); Mean Corpuscular Hemoglobin 29.5 pg (28.0-34.0); Mean Corpuscular Volume 91.7 fL (80-94); Mean Platelet Volume 9.7 fL (7.4-10.4); Monocytes # 0.5 10^3/uL (0.2-0.9); Monocytes % 7.2 %; Neutrophils # 4.2 10^3/uL (1.8-7.7); Neutrophils % 61.8 %; Nucleated Red Blood Cells % 0 %; Platelet Count 300 10^3/cmm (130-400); Red Blood Count 5.19 10^6/uL (4.1-5.3); Red Cell Distribution Width 15.6 % (12.1-15.1); White Blood Count 6.8 10^3/uL (4.0-10.0)
[2020-03-15 10:33] LABS: Ammonia 24 umol/L (16-60)
[2020-03-15 10:35] LABS: Alanine Aminotransferase 18 U/L (0-41); Alkaline Phosphatase 84 IU/L (40-130); Anion Gap 17.1 (5-19); Aspartate Amino Transferase 29 U/L (0-40); Blood Urea Nitrogen 14 mg/dL (6-20); Calcium 10.3 mg/dL (8.5-10.5); Carbon Dioxide 25 mmol/L (22-29); Chloride 101 mmol/L (98-107); Globulin 2.4 g/dL (1.3-4.6); Glomerular Filtration Rate 30.8 mL/min (90-130); Glucose 102 mg/dL (65-115); Osmolality Calculated 286 mOsm/kg (285-295); Potassium 3.1 mmol/L (3.5-5.1); Sodium 140 mmol/L (136-145); Total Bilirubin 0.3 mg/dL (0.15-1.2); Total Protein 7.4 g/dL (6.6-8.7)
[2020-03-15 11:18] LABS: Creatine Phosphokinase 433 U/L (39-308)
[2020-03-22 09:45] LABS: Basophils % 0.8 %; Eosinophils # 0.2 10^3/uL (0.0-0.8); Eosinophils % 3.5 %; Hematocrit 44.2 % (42.0-52.0); Hemoglobin 14.1 g/dL (11.7-16.6); Lymphocytes # 1.4 10^3/uL (0.8-4.8); Lymphocytes % 27.5 %; Mean Corpuscular HGB Conc 31.9 g/dL (30.0-36.0); Mean Corpuscular Hemoglobin 29.4 pg (28.0-34.0); Mean Corpuscular Volume 92.1 fL (80-94); Mean Platelet Volume 9.7 fL (7.4-10.4); Monocytes # 0.4 10^3/uL (0.2-0.9); Monocytes % 6.8 %; Neutrophils # 3.2 10^3/uL (1.8-7.7); Neutrophils % 61.2 %; Nucleated Red Blood Cells % 0 %; Platelet Count 224 10^3/cmm (130-400); Red Cell Distribution Width 16.2 % (12.1-15.1); White Blood Count 5.2 10^3/uL (4.0-10.0)
[2020-03-22 10:04] LABS: Alanine Aminotransferase 20 U/L (0-41); Albumin Level 4.5 g/dL (3.5-5.2); Alkaline Phosphatase 67 IU/L (40-130); Anion Gap 16.9 (5-19); Aspartate Amino Transferase 19 U/L (0-40); Blood Urea Nitrogen 20 mg/dL (6-20); Calcium 9.8 mg/dL (8.5-10.5); Carbon Dioxide 22 mmol/L (22-29); Chloride 104 mmol/L (98-107); Creatine Phosphokinase 142 U/L (39-308); Glomerular Filtration Rate 32.4 mL/min (90-130); Glucose 137 mg/dL (65-115); Osmolality Calculated 287 mOsm/kg (285-295); Potassium 3.9 mmol/L (3.5-5.1); Sodium 139 mmol/L (136-145); Total Bilirubin 0.3 mg/dL (0.15-1.2); Total Protein 6.5 g/dL (6.6-8.7)
[2020-03-22 10:05] LABS: Ammonia 36 umol/L (16-60)
== END 2020-03-26 23:59 | disposition home or self-care (01) ==
LOC: LAB 09:26
PROVIDERS: Family Provider Family Medicine; Visit Provider Family Medicine
DX: F31.9 Bipolar disorder, unspecified (principal); N17.0 Acute kidney failure with tubular necrosis; E72.20 Disorder of urea cycle metabolism, unspecified
CPT/HCPCS: 90834; 36415; 80053; 82140; 82550; 85025

== ENCOUNTER → 2020-03-30 08:59 | Outpatient (BNVA) | payer BC, MEDICAID, SELFPAY | PROVIDERS: Family Provider Family Medicine; PCP Family Medicine; Visit Provider Counselor Professional | DX: F31.9 Bipolar disorder, unspecified (principal) | CPT/HCPCS: 90834 ==

== ENCOUNTER 2020-04-25 11:49 | Outpatient (RCR) | payer BC, MEDICAID, SELFPAY ==
[2020-04-04 09:22] LABS: Basophils % 0.7 %; Eosinophils # 0.2 10^3/uL (0.0-0.8); Eosinophils % 2.7 %; Hematocrit 50.1 % (42.0-52.0); Hemoglobin 16.1 g/dL (11.7-16.6); Lymphocytes # 1.7 10^3/uL (0.8-4.8); Lymphocytes % 28.6 %; Mean Corpuscular HGB Conc 32.1 g/dL (30.0-36.0); Mean Corpuscular Hemoglobin 29.9 pg (28.0-34.0); Mean Corpuscular Volume 92.9 fL (80-94); Mean Platelet Volume 9.6 fL (7.4-10.4); Monocytes # 0.5 10^3/uL (0.2-0.9); Monocytes % 7.9 %; Neutrophils # 3.6 10^3/uL (1.8-7.7); Neutrophils % 59.8 %; Nucleated Red Blood Cells % 0 %; Platelet Count 234 10^3/cmm (130-400); Red Blood Count 5.39 10^6/uL (4.1-5.3); Red Cell Distribution Width 15.5 % (12.1-15.1); White Blood Count 5.9 10^3/uL (4.0-10.0)
[2020-04-04 09:35] LABS: Ammonia 13 umol/L (16-60)
[2020-04-04 09:36] LABS: Alanine Aminotransferase 16 U/L (0-41); Albumin Level 4.6 g/dL (3.5-5.2); Alkaline Phosphatase 91 IU/L (40-130); Anion Gap 16.5 (5-19); Aspartate Amino Transferase 17 U/L (0-40); Blood Urea Nitrogen 21 mg/dL (6-20); Calcium 10.5 mg/dL (8.5-10.5); Carbon Dioxide 25 mmol/L (22-29); Chloride 101 mmol/L (98-107); Creatine Phosphokinase 103 U/L (39-308); Globulin 2.6 g/dL (1.3-4.6); Glomerular Filtration Rate 36.1 mL/min (90-130); Glucose 89 mg/dL (65-115); Osmolality Calculated 282 mOsm/kg (285-295); Potassium 4.5 mmol/L (3.5-5.1); Sodium 138 mmol/L (136-145); Total Bilirubin 0.3 mg/dL (0.15-1.2); Total Protein 7.2 g/dL (6.6-8.7)
[2020-04-25 12:08] LABS: Basophils % 0.5 %; Eosinophils # 0.3 10^3/uL (0.0-0.8); Eosinophils % 4.5 %; Lymphocytes # 1.7 10^3/uL (0.8-4.8); Lymphocytes % 27.8 %; Mean Corpuscular HGB Conc 31.4 g/dL (30.0-36.0); Mean Corpuscular Hemoglobin 29.2 pg (28.0-34.0); Mean Corpuscular Volume 93.1 fL (80-94); Mean Platelet Volume 10.3 fL (7.4-10.4); Monocytes # 0.5 10^3/uL (0.2-0.9); Monocytes % 8.4 %; Neutrophils # 3.6 10^3/uL (1.8-7.7); Neutrophils % 58.6 %; Nucleated Red Blood Cells % 0 %; Platelet Count 243 10^3/cmm (130-400); Red Blood Count 5.48 10^6/uL (4.1-5.3); Red Cell Distribution Width 13.9 % (12.1-15.1); White Blood Count 6.2 10^3/uL (4.0-10.0)
[2020-04-25 12:29] LABS: Ammonia 19 umol/L (16-60)
[2020-04-25 12:57] LABS: Alanine Aminotransferase 18 U/L (0-41); Albumin Level 4.9 g/dL (3.5-5.2); Alkaline Phosphatase 85 IU/L (40-130); Anion Gap 17.1 (5-19); Aspartate Amino Transferase 17 U/L (0-40); Blood Urea Nitrogen 22 mg/dL (6-20); Calcium 10.3 mg/dL (8.5-10.5); Carbon Dioxide 26 mmol/L (22-29); Chloride 101 mmol/L (98-107); Creatine Phosphokinase 88 U/L (39-308); Globulin 2.1 g/dL (1.3-4.6); Glomerular Filtration Rate 36.1 mL/min (90-130); Glucose 94 mg/dL (65-115); Osmolality Calculated 286 mOsm/kg (285-295); Potassium 4.1 mmol/L (3.5-5.1); Sodium 140 mmol/L (136-145); Total Bilirubin 0.2 mg/dL (0.15-1.2)
== END 2020-04-25 23:59 | disposition home or self-care (01) ==
LOC: LAB 11:49
PROVIDERS: PCP Family Medicine; Visit Provider Family Medicine
DX: N17.0 Acute kidney failure with tubular necrosis (principal); E72.20 Disorder of urea cycle metabolism, unspecified
CPT/HCPCS: 36415; 80053; 82140; 82550; 85025

== ENCOUNTER 2020-05-08 08:18 | Outpatient (RCR) | payer BC, MEDICAID, SELFPAY ==
[2020-05-08 08:35] LABS: Basophils % 0.5 %; Eosinophils # 0.2 10^3/uL (0.0-0.8); Eosinophils % 2.5 %; Hematocrit 49.1 % (42.0-52.0); Hemoglobin 15.5 g/dL (11.7-16.6); Lymphocytes % 25.7 %; Mean Corpuscular HGB Conc 31.6 g/dL (30.0-36.0); Mean Corpuscular Hemoglobin 28.9 pg (28.0-34.0); Mean Corpuscular Volume 91.6 fL (80-94); Mean Platelet Volume 10.1 fL (7.4-10.4); Monocytes # 0.6 10^3/uL (0.2-0.9); Monocytes % 7.4 %; Neutrophils # 4.99 10^3/uL (1.8-7.7); Neutrophils % 63.6 %; Nucleated Red Blood Cells % 0 %; Platelet Count 265 10^3/cmm (130-400); Red Blood Count 5.36 10^6/uL (4.1-5.3); Red Cell Distribution Width 13.5 % (12.1-15.1); White Blood Count 7.9 10^3/uL (4.0-10.0)
[2020-05-08 08:59] LABS: Alanine Aminotransferase 11 U/L (0-41); Albumin Level 4.4 g/dL (3.5-5.2); Alkaline Phosphatase 70 IU/L (40-130); Anion Gap 15.9 (5-19); Aspartate Amino Transferase 13 U/L (0-40); Blood Urea Nitrogen 25 mg/dL (6-20); Calcium 9.7 mg/dL (8.5-10.5); Carbon Dioxide 23 mmol/L (22-29); Chloride 104 mmol/L (98-107); Creatine Phosphokinase 84 U/L (39-308); Globulin 2.6 g/dL (1.3-4.6); Glomerular Filtration Rate 38.4 mL/min (90-130); Glucose 94 mg/dL (65-115); Osmolality Calculated 285 mOsm/kg (285-295); Potassium 3.9 mmol/L (3.5-5.1); Sodium 139 mmol/L (136-145); Total Bilirubin 0.3 mg/dL (0.15-1.2)
[2020-05-08 09:00] LABS: Ammonia 22 umol/L (16-60)
== END 2020-05-26 23:59 | disposition home or self-care (01) ==
LOC: LAB 08:18
PROVIDERS: PCP Family Medicine; Visit Provider Family Medicine
DX: N17.0 Acute kidney failure with tubular necrosis (principal); E72.20 Disorder of urea cycle metabolism, unspecified
CPT/HCPCS: 36415; 80053; 82140; 82550; 85025

== ENCOUNTER 2020-05-22 09:43 | Outpatient (CLI) | payer BC, MEDICAID, SELFPAY ==
[2020-05-22 10:16] LABS: Basophils % 0.6 %; Eosinophils # 0.4 10^3/uL (0.0-0.8); Eosinophils % 5.9 %; Hematocrit 40.4 % (42.0-52.0); Hemoglobin 12.7 g/dL (11.7-16.6); Lymphocytes # 1.1 10^3/uL (0.8-4.8); Lymphocytes % 18.1 %; Mean Corpuscular HGB Conc 31.4 g/dL (30.0-36.0); Mean Corpuscular Hemoglobin 30.1 pg (28.0-34.0); Mean Corpuscular Volume 95.7 fL (80-94); Mean Platelet Volume 11.1 fL (7.4-10.4); Monocytes # 0.6 10^3/uL (0.2-0.9); Monocytes % 9.7 %; Neutrophils # 4.12 10^3/uL (1.8-7.7); Neutrophils % 65.4 %; Nucleated Red Blood Cells % 0 %; Platelet Count 152 10^3/cmm (130-400); Red Blood Count 4.22 10^6/uL (4.1-5.3); Red Cell Distribution Width 14.6 % (12.1-15.1); White Blood Count 6.3 10^3/uL (4.0-10.0)
[2020-05-22 10:30] LABS: Alanine Aminotransferase 16 U/L (0-41); Alkaline Phosphatase 66 IU/L (40-130); Anion Gap 13.1 (5-19); Aspartate Amino Transferase 25 U/L (0-40); Blood Urea Nitrogen 27 mg/dL (6-20); Calcium 8.4 mg/dL (8.5-10.5); Carbon Dioxide 25 mmol/L (22-29); Chloride 104 mmol/L (98-107); Glomerular Filtration Rate 24.5 mL/min (90-130); Glucose 88 mg/dL (65-115); Osmolality Calculated 282 mOsm/kg (285-295); Potassium 4.1 mmol/L (3.5-5.1); Sodium 138 mmol/L (136-145); Total Bilirubin 0.2 mg/dL (0.15-1.2)
[2020-05-22 10:31] LABS: Ammonia 29 umol/L (16-60)
[2020-05-22 10:32] LABS: Creatine Phosphokinase 365 U/L (39-308)
== END 2020-05-22 09:44 | disposition home or self-care (01) ==
PROVIDERS: PCP Family Medicine; Visit Provider Family Medicine
DX: N17.0 Acute kidney failure with tubular necrosis (principal); E72.20 Disorder of urea cycle metabolism, unspecified
CPT/HCPCS: 80053; 82140; 82550; 85025

== ENCOUNTER → 2020-05-23 07:56 | Outpatient (BNVA) | payer BC, MEDICAID, SELFPAY | PROVIDERS: PCP Family Medicine; Visit Provider Psychiatry & Neurology Psychiatry | DX: F31.9 Bipolar disorder, unspecified (principal); F33.2 Major depressive disorder, recurrent severe without psychotic features | CPT/HCPCS: 99213 ==

== ENCOUNTER 2020-06-26 08:54 | Outpatient (RCR) | payer MEDICAID, SELFPAY ==
[2020-05-29 08:10] LABS: Basophils % 0.6 %; Eosinophils # 0.3 10^3/uL (0.0-0.8); Hematocrit 49.9 % (42.0-52.0); Hemoglobin 15.7 g/dL (11.7-16.6); Lymphocytes # 1.8 10^3/uL (0.8-4.8); Lymphocytes % 27.9 %; Mean Corpuscular HGB Conc 31.5 g/dL (30.0-36.0); Mean Corpuscular Hemoglobin 28.3 pg (28.0-34.0); Mean Corpuscular Volume 89.9 fL (80-94); Mean Platelet Volume 9.8 fL (7.4-10.4); Monocytes # 0.5 10^3/uL (0.2-0.9); Monocytes % 7.9 %; Neutrophils # 3.75 10^3/uL (1.8-7.7); Neutrophils % 59.4 %; Nucleated Red Blood Cells % 0 %; Platelet Count 213 10^3/cmm (130-400); Red Blood Count 5.55 10^6/uL (4.1-5.3); Red Cell Distribution Width 13.9 % (12.1-15.1); White Blood Count 6.3 10^3/uL (4.0-10.0)
[2020-05-29 08:40] LABS: Alanine Aminotransferase 20 U/L (0-41); Albumin Level 4.6 g/dL (3.5-5.2); Alkaline Phosphatase 75 IU/L (40-130); Aspartate Amino Transferase 25 U/L (0-40); Blood Urea Nitrogen 32 mg/dL (6-20); Calcium 9.1 mg/dL (8.5-10.5); Carbon Dioxide 19 mmol/L (22-29); Chloride 107 mmol/L (98-107); Creatine Phosphokinase 88 U/L (39-308); Globulin 2.6 g/dL (1.3-4.6); Glucose 100 mg/dL (65-115); Osmolality Calculated 281 mOsm/kg (285-295); Sodium 137 mmol/L (136-145); Total Bilirubin 0.4 mg/dL (0.15-1.2); Total Protein 7.2 g/dL (6.6-8.7)
[2020-05-29 08:41] LABS: Ammonia 38 umol/L (16-60)
[2020-06-12 09:10] LABS: Basophils # 0.1 10^3/uL (0.0-0.1); Basophils % 1.1 %; Eosinophils # 0.3 10^3/uL (0.0-0.8); Hemoglobin 15.1 g/dL (11.7-16.6); Lymphocytes # 2.6 10^3/uL (0.8-4.8); Lymphocytes % 35.4 %; Mean Corpuscular HGB Conc 31.5 g/dL (30.0-36.0); Mean Corpuscular Hemoglobin 28.5 pg (28.0-34.0); Mean Corpuscular Volume 90.7 fL (80-94); Mean Platelet Volume 10.2 fL (7.4-10.4); Monocytes # 0.5 10^3/uL (0.2-0.9); Monocytes % 7.2 %; Neutrophils % 52.2 %; Nucleated Red Blood Cells % 0 %; Platelet Count 241 10^3/cmm (130-400); Red Blood Count 5.29 10^6/uL (4.1-5.3); Red Cell Distribution Width 14.4 % (12.1-15.1); White Blood Count 7.3 10^3/uL (4.0-10.0)
[2020-06-12 09:29] LABS: Ammonia 19 umol/L (16-60)
[2020-06-12 09:30] LABS: Alanine Aminotransferase 17 U/L (0-41); Albumin Level 4.5 g/dL (3.5-5.2); Alkaline Phosphatase 77 IU/L (40-130); Anion Gap 12.3 (5-19); Aspartate Amino Transferase 22 U/L (0-40); Blood Urea Nitrogen 18 mg/dL (6-20); Calcium 9.1 mg/dL (8.5-10.5); Carbon Dioxide 24 mmol/L (22-29); Chloride 109 mmol/L (98-107); Creatine Phosphokinase 256 U/L (39-308); Globulin 1.7 g/dL (1.3-4.6); Glomerular Filtration Rate 30.6 mL/min (90-130); Glucose 92 mg/dL (65-115); Osmolality Calculated 288 mOsm/kg (285-295); Potassium 4.3 mmol/L (3.5-5.1); Sodium 141 mmol/L (136-145); Total Bilirubin 0.3 mg/dL (0.15-1.2); Total Protein 6.2 g/dL (6.6-8.7)
[2020-06-19 10:53] LABS: Basophils # 0.1 10^3/uL (0.0-0.1); Basophils % 0.7 %; Eosinophils # 0.3 10^3/uL (0.0-0.8); Eosinophils % 4.8 %; Hematocrit 48.4 % (42.0-52.0); Hemoglobin 14.8 g/dL (11.7-16.6); Lymphocytes # 2.5 10^3/uL (0.8-4.8); Lymphocytes % 37.8 %; Mean Corpuscular HGB Conc 30.6 g/dL (30.0-36.0); Mean Corpuscular Hemoglobin 28.6 pg (28.0-34.0); Mean Corpuscular Volume 93.6 fL (80-94); Mean Platelet Volume 10.8 fL (7.4-10.4); Monocytes # 0.5 10^3/uL (0.2-0.9); Monocytes % 7.8 %; Neutrophils # 3.25 10^3/uL (1.8-7.7); Neutrophils % 48.8 %; Nucleated Red Blood Cells % 0 %; Platelet Count 212 10^3/cmm (130-400); Red Blood Count 5.17 10^6/uL (4.1-5.3); Red Cell Distribution Width 14.5 % (12.1-15.1); White Blood Count 6.7 10^3/uL (4.0-10.0)
[2020-06-19 11:06] LABS: Alanine Aminotransferase 19 U/L (0-41); Albumin Level 4.4 g/dL (3.5-5.2); Alkaline Phosphatase 79 IU/L (40-130); Aspartate Amino Transferase 26 U/L (0-40); Blood Urea Nitrogen 25 mg/dL (6-20); Carbon Dioxide 23 mmol/L (22-29); Chloride 105 mmol/L (98-107); Creatine Phosphokinase 170 U/L (39-308); Globulin 2.2 g/dL (1.3-4.6); Glomerular Filtration Rate 26.6 mL/min (90-130); Glucose 94 mg/dL (65-115); Osmolality Calculated 281 mOsm/kg (285-295); Sodium 137 mmol/L (136-145); Total Bilirubin 0.5 mg/dL (0.15-1.2); Total Protein 6.6 g/dL (6.6-8.7)
[2020-06-19 11:07] LABS: Ammonia 32 umol/L (16-60)
[2020-06-19 11:09] LABS: Anion Gap 13.5 (5-19); Potassium 4.5 mmol/L (3.5-5.1)
[2020-06-26 09:16] LABS: Basophils % 0.6 %; Eosinophils # 0.3 10^3/uL (0.0-0.8); Eosinophils % 4.4 %; Hemoglobin 15.8 g/dL (11.7-16.6); Lymphocytes # 1.6 10^3/uL (0.8-4.8); Lymphocytes % 22.5 %; Mean Corpuscular HGB Conc 31.6 g/dL (30.0-36.0); Mean Corpuscular Hemoglobin 28.7 pg (28.0-34.0); Mean Corpuscular Volume 90.9 fL (80-94); Mean Platelet Volume 10.7 fL (7.4-10.4); Monocytes # 0.5 10^3/uL (0.2-0.9); Monocytes % 7.3 %; Neutrophils # 4.56 10^3/uL (1.8-7.7); Neutrophils % 64.9 %; Nucleated Red Blood Cells % 0 %; Platelet Count 200 10^3/cmm (130-400); Red Cell Distribution Width 14.2 % (12.1-15.1)
[2020-06-26 09:33] LABS: Alanine Aminotransferase 17 U/L (0-41); Albumin Level 4.6 g/dL (3.5-5.2); Alkaline Phosphatase 80 IU/L (40-130); Ammonia 14 umol/L (16-60); Blood Urea Nitrogen 29 mg/dL (6-20); Calcium 9.1 mg/dL (8.5-10.5); Carbon Dioxide 24 mmol/L (22-29); Chloride 107 mmol/L (98-107); Creatine Phosphokinase 107 U/L (39-308); Globulin 2.4 g/dL (1.3-4.6); Glomerular Filtration Rate 29.2 mL/min (90-130); Glucose 91 mg/dL (65-115); Osmolality Calculated 289 mOsm/kg (285-295); Sodium 141 mmol/L (136-145); Total Bilirubin 0.2 mg/dL (0.15-1.2)
[2020-06-26 09:37] LABS: Anion Gap 14.6 (5-19); Aspartate Amino Transferase 20 U/L (0-40); Potassium 4.6 mmol/L (3.5-5.1)
== END 2020-06-26 23:59 | disposition home or self-care (01) ==
LOC: LAB 08:54
PROVIDERS: PCP Family Medicine; Visit Provider Family Medicine
DX: N17.0 Acute kidney failure with tubular necrosis (principal); E72.20 Disorder of urea cycle metabolism, unspecified
CPT/HCPCS: 36415; 80053; 82140; 82550; 85025

== ENCOUNTER 2020-07-10 07:45 | Outpatient (CLI) | payer MEDICAID, SELFPAY ==
[2020-07-10 08:13] LABS: Basophils # 0.1 10^3/uL (0.0-0.1); Basophils % 0.9 %; Eosinophils # 0.4 10^3/uL (0.0-0.8); Eosinophils % 5.1 %; Hematocrit 55.6 % (42.0-52.0); Hemoglobin 17.7 g/dL (11.7-16.6); Lymphocytes # 1.8 10^3/uL (0.8-4.8); Lymphocytes % 24.4 %; Mean Corpuscular HGB Conc 31.8 g/dL (30.0-36.0); Mean Corpuscular Hemoglobin 29.1 pg (28.0-34.0); Mean Corpuscular Volume 91.4 fL (80-94); Mean Platelet Volume 10.7 fL (7.4-10.4); Monocytes # 0.6 10^3/uL (0.2-0.9); Monocytes % 8.3 %; Neutrophils % 61.2 %; Nucleated Red Blood Cells % 0 %; Platelet Count 230 10^3/cmm (130-400); Red Blood Count 6.08 10^6/uL (4.1-5.3); Red Cell Distribution Width 14.6 % (12.1-15.1); White Blood Count 7.5 10^3/uL (4.0-10.0)
[2020-07-10 08:29] LABS: Alanine Aminotransferase 17 U/L (0-41); Albumin Level 4.9 g/dL (3.5-5.2); Alkaline Phosphatase 81 IU/L (40-130); Ammonia 35 umol/L (16-60); Anion Gap 16.4 (5-19); Aspartate Amino Transferase 18 U/L (0-40); Blood Urea Nitrogen 22 mg/dL (6-20); Calcium 10.2 mg/dL (8.5-10.5); Carbon Dioxide 23 mmol/L (22-29); Chloride 104 mmol/L (98-107); Creatine Phosphokinase 103 U/L (39-308); Globulin 2.4 g/dL (1.3-4.6); Glomerular Filtration Rate 29.2 mL/min (90-130); Glucose 92 mg/dL (65-115); Osmolality Calculated 284 mOsm/kg (285-295); Potassium 4.4 mmol/L (3.5-5.1); Sodium 139 mmol/L (136-145); Total Bilirubin 0.4 mg/dL (0.15-1.2); Total Protein 7.3 g/dL (6.6-8.7)
== END 2020-07-10 07:46 | disposition home or self-care (01) ==
PROVIDERS: PCP Family Medicine; Visit Provider Family Medicine
DX: N17.0 Acute kidney failure with tubular necrosis (principal); E72.20 Disorder of urea cycle metabolism, unspecified
CPT/HCPCS: 36415; 80053; 82140; 82550; 85025

== ENCOUNTER 2020-07-17 08:38 | Outpatient (RCR) | payer MEDICAID, SELFPAY ==
[2020-07-04 09:40] LABS: Basophils # 0.1 10^3/uL (0.0-0.1); Basophils % 0.7 %; Eosinophils # 0.2 10^3/uL (0.0-0.8); Eosinophils % 2.3 %; Hematocrit 50.3 % (42.0-52.0); Hemoglobin 16.1 g/dL (11.7-16.6); Lymphocytes % 27.2 %; Mean Corpuscular Hemoglobin 28.8 pg (28.0-34.0); Mean Platelet Volume 10.7 fL (7.4-10.4); Monocytes # 0.5 10^3/uL (0.2-0.9); Monocytes % 6.5 %; Neutrophils # 4.74 10^3/uL (1.8-7.7); Neutrophils % 63.2 %; Nucleated Red Blood Cells % 0 %; Platelet Count 189 10^3/cmm (130-400); Red Blood Count 5.59 10^6/uL (4.1-5.3); Red Cell Distribution Width 14.2 % (12.1-15.1); White Blood Count 7.5 10^3/uL (4.0-10.0)
[2020-07-04 10:08] LABS: Alanine Aminotransferase 15 U/L (0-41); Albumin Level 4.5 g/dL (3.5-5.2); Alkaline Phosphatase 68 IU/L (40-130); Anion Gap 13.8 (5-19); Aspartate Amino Transferase 20 U/L (0-40); Blood Urea Nitrogen 27 mg/dL (6-20); Calcium 9.6 mg/dL (8.5-10.5); Carbon Dioxide 24 mmol/L (22-29); Chloride 105 mmol/L (98-107); Creatine Phosphokinase 110 U/L (39-308); Globulin 2.2 g/dL (1.3-4.6); Glomerular Filtration Rate 30.6 mL/min (90-130); Glucose 100 mg/dL (65-115); Osmolality Calculated 283 mOsm/kg (285-295); Potassium 4.8 mmol/L (3.5-5.1); Sodium 138 mmol/L (136-145); Total Bilirubin 0.3 mg/dL (0.15-1.2); Total Protein 6.7 g/dL (6.6-8.7)
[2020-07-04 10:09] LABS: Ammonia 21 umol/L (16-60)
[2020-07-17 08:53] LABS: Basophils # 0.1 10^3/uL (0.0-0.1); Basophils % 0.8 %; Eosinophils # 0.5 10^3/uL (0.0-0.8); Eosinophils % 4.7 %; Hematocrit 47.1 % (42.0-52.0); Lymphocytes # 2.2 10^3/uL (0.8-4.8); Lymphocytes % 22.5 %; Mean Corpuscular HGB Conc 31.8 g/dL (30.0-36.0); Mean Corpuscular Hemoglobin 28.9 pg (28.0-34.0); Mean Corpuscular Volume 90.8 fL (80-94); Mean Platelet Volume 10.8 fL (7.4-10.4); Monocytes # 0.8 10^3/uL (0.2-0.9); Monocytes % 8.6 %; Neutrophils # 6.11 10^3/uL (1.8-7.7); Neutrophils % 63.2 %; Nucleated Red Blood Cells % 0 %; Platelet Count 189 10^3/cmm (130-400); Red Blood Count 5.19 10^6/uL (4.1-5.3); Red Cell Distribution Width 14.6 % (12.1-15.1); White Blood Count 9.7 10^3/uL (4.0-10.0)
[2020-07-17 09:10] LABS: Alanine Aminotransferase 17 U/L (0-41); Albumin Level 4.2 g/dL (3.5-5.2); Alkaline Phosphatase 85 IU/L (40-130); Ammonia 74 umol/L (16-60); Anion Gap 14.4 (5-19); Aspartate Amino Transferase 20 U/L (0-40); Blood Urea Nitrogen 28 mg/dL (6-20); Calcium 9.3 mg/dL (8.5-10.5); Carbon Dioxide 19 mmol/L (22-29); Chloride 106 mmol/L (98-107); Creatine Phosphokinase 169 U/L (39-308); Globulin 2.2 g/dL (1.3-4.6); Glomerular Filtration Rate 32.2 mL/min (90-130); Glucose 96 mg/dL (65-115); Osmolality Calculated 285 mOsm/kg (285-295); Potassium 4.4 mmol/L (3.5-5.1); Sodium 135 mmol/L (136-145); Total Bilirubin 0.4 mg/dL (0.15-1.2); Total Protein 6.4 g/dL (6.6-8.7)
[2020-07-24 10:11] LABS: Basophils % 0.4 %; Eosinophils # 0.2 10^3/uL (0.0-0.8); Eosinophils % 2.5 %; Hematocrit 50.3 % (42.0-52.0); Lymphocytes # 1.3 10^3/uL (0.8-4.8); Lymphocytes % 16.6 %; Mean Corpuscular HGB Conc 31.8 g/dL (30.0-36.0); Mean Corpuscular Hemoglobin 28.7 pg (28.0-34.0); Mean Corpuscular Volume 90.1 fL (80-94); Mean Platelet Volume 10.5 fL (7.4-10.4); Monocytes # 0.5 10^3/uL (0.2-0.9); Monocytes % 6.7 %; Neutrophils # 5.63 10^3/uL (1.8-7.7); Neutrophils % 73.7 %; Nucleated Red Blood Cells % 0 %; Platelet Count 197 10^3/cmm (130-400); Red Blood Count 5.58 10^6/uL (4.1-5.3); White Blood Count 7.6 10^3/uL (4.0-10.0)
[2020-07-24 10:35] LABS: Alanine Aminotransferase 20 U/L (0-41); Albumin Level 4.5 g/dL (3.5-5.2); Alkaline Phosphatase 85 IU/L (40-130); Anion Gap 14.4 (5-19); Aspartate Amino Transferase 21 U/L (0-40); Blood Urea Nitrogen 23 mg/dL (6-20); Calcium 10.1 mg/dL (8.5-10.5); Carbon Dioxide 25 mmol/L (22-29); Chloride 105 mmol/L (98-107); Creatine Phosphokinase 90 U/L (39-308); Globulin 2.5 g/dL (1.3-4.6); Glomerular Filtration Rate 30.6 mL/min (90-130); Glucose 86 mg/dL (65-115); Osmolality Calculated 293 mOsm/kg (285-295); Potassium 4.4 mmol/L (3.5-5.1); Sodium 140 mmol/L (136-145); Total Bilirubin 0.3 mg/dL (0.15-1.2)
[2020-07-24 10:36] LABS: Ammonia 13 umol/L (16-60)
== END 2020-07-26 23:59 | disposition home or self-care (01) ==
LOC: LAB 08:38
PROVIDERS: PCP Family Medicine; Visit Provider Family Medicine
DX: N17.0 Acute kidney failure with tubular necrosis (principal); E72.20 Disorder of urea cycle metabolism, unspecified
CPT/HCPCS: 36415; 80053; 82140; 82550; 85025

== ENCOUNTER 2020-08-21 09:31 | Outpatient (RCR) | payer MEDICAID, SELFPAY ==
[2020-08-07 09:53] LABS: Basophils # 0.1 10^3/uL (0.0-0.1); Basophils % 0.8 %; Eosinophils # 0.2 10^3/uL (0.0-0.8); Eosinophils % 2.5 %; Hematocrit 52.9 % (42.0-52.0); Hemoglobin 16.8 g/dL (11.7-16.6); Lymphocytes # 2.8 10^3/uL (0.8-4.8); Lymphocytes % 31.5 %; Mean Corpuscular HGB Conc 31.8 g/dL (30.0-36.0); Mean Corpuscular Hemoglobin 28.8 pg (28.0-34.0); Mean Corpuscular Volume 90.7 fL (80-94); Mean Platelet Volume 10.1 fL (7.4-10.4); Monocytes # 0.7 10^3/uL (0.2-0.9); Monocytes % 8.1 %; Neutrophils # 4.98 10^3/uL (1.8-7.7); Neutrophils % 56.9 %; Nucleated Red Blood Cells % 0 %; Platelet Count 301 10^3/cmm (130-400); Red Blood Count 5.83 10^6/uL (4.1-5.3); Red Cell Distribution Width 14.6 % (12.1-15.1); White Blood Count 8.8 10^3/uL (4.0-10.0)
[2020-08-07 10:18] LABS: Alanine Aminotransferase 19 U/L (0-41); Albumin Level 4.6 g/dL (3.5-5.2); Alkaline Phosphatase 89 IU/L (40-130); Anion Gap 17.3 (5-19); Aspartate Amino Transferase 18 U/L (0-40); Blood Urea Nitrogen 19 mg/dL (6-20); Carbon Dioxide 25 mmol/L (22-29); Chloride 105 mmol/L (98-107); Creatine Phosphokinase 141 U/L (39-308); Globulin 2.2 g/dL (1.3-4.6); Glomerular Filtration Rate 32.2 mL/min (90-130); Glucose 100 mg/dL (65-115); Osmolality Calculated 298 mOsm/kg (285-295); Potassium 4.3 mmol/L (3.5-5.1); Sodium 143 mmol/L (136-145); Total Bilirubin 0.4 mg/dL (0.15-1.2); Total Protein 6.8 g/dL (6.6-8.7)
[2020-08-07 10:19] LABS: Ammonia 16 umol/L (16-60)
[2020-08-14 08:33] LABS: Basophils # 0.1 10^3/uL (0.0-0.1); Basophils % 0.7 %; Eosinophils # 0.4 10^3/uL (0.0-0.8); Eosinophils % 5.3 %; Hematocrit 48.9 % (42.0-52.0); Hemoglobin 15.2 g/dL (11.7-16.6); Lymphocytes # 2.4 10^3/uL (0.8-4.8); Lymphocytes % 29.4 %; Mean Corpuscular HGB Conc 31.1 g/dL (30.0-36.0); Mean Corpuscular Hemoglobin 28.3 pg (28.0-34.0); Mean Corpuscular Volume 91.1 fL (80-94); Mean Platelet Volume 10.1 fL (7.4-10.4); Monocytes # 0.7 10^3/uL (0.2-0.9); Monocytes % 8.5 %; Neutrophils # 4.51 10^3/uL (1.8-7.7); Neutrophils % 55.9 %; Nucleated Red Blood Cells % 0 %; Platelet Count 238 10^3/cmm (130-400); Red Blood Count 5.37 10^6/uL (4.1-5.3); Red Cell Distribution Width 14.7 % (12.1-15.1); White Blood Count 8.1 10^3/uL (4.0-10.0)
[2020-08-14 08:55] LABS: Alanine Aminotransferase 22 U/L (0-41); Albumin Level 4.5 g/dL (3.5-5.2); Alkaline Phosphatase 83 IU/L (40-130); Anion Gap 13.3 (5-19); Aspartate Amino Transferase 24 U/L (0-40); Blood Urea Nitrogen 18 mg/dL (6-20); Calcium 9.3 mg/dL (8.5-10.5); Carbon Dioxide 28 mmol/L (22-29); Chloride 102 mmol/L (98-107); Creatine Phosphokinase 211 U/L (39-308); Globulin 2.2 g/dL (1.3-4.6); Glucose 98 mg/dL (65-115); Osmolality Calculated 290 mOsm/kg (285-295); Potassium 4.3 mmol/L (3.5-5.1); Sodium 139 mmol/L (136-145); Total Bilirubin 0.3 mg/dL (0.15-1.2); Total Protein 6.7 g/dL (6.6-8.7)
[2020-08-14 08:58] LABS: Ammonia 18 umol/L (16-60)
[2020-08-21 09:45] LABS: Basophils # 0.1 10^3/uL (0.0-0.1); Basophils % 0.8 %; Eosinophils # 0.3 10^3/uL (0.0-0.8); Hemoglobin 15.9 g/dL (11.7-16.6); Lymphocytes % 31.8 %; Mean Corpuscular HGB Conc 31.8 g/dL (30.0-36.0); Mean Corpuscular Hemoglobin 28.5 pg (28.0-34.0); Mean Corpuscular Volume 89.8 fL (80-94); Mean Platelet Volume 10.2 fL (7.4-10.4); Monocytes # 0.5 10^3/uL (0.2-0.9); Monocytes % 8.7 %; Neutrophils # 3.33 10^3/uL (1.8-7.7); Neutrophils % 53.5 %; Nucleated Red Blood Cells % 0 %; Platelet Count 215 10^3/cmm (130-400); Red Blood Count 5.57 10^6/uL (4.1-5.3); Red Cell Distribution Width 13.9 % (12.1-15.1); White Blood Count 6.2 10^3/uL (4.0-10.0)
[2020-08-21 10:03] LABS: Alanine Aminotransferase 24 U/L (0-41); Albumin Level 4.4 g/dL (3.5-5.2); Alkaline Phosphatase 77 IU/L (40-130); Aspartate Amino Transferase 23 U/L (0-40); Blood Urea Nitrogen 24 mg/dL (6-20); Calcium 9.3 mg/dL (8.5-10.5); Carbon Dioxide 26 mmol/L (22-29); Chloride 101 mmol/L (98-107); Creatine Phosphokinase 68 U/L (39-308); Globulin 2.1 g/dL (1.3-4.6); Glucose 100 mg/dL (65-115); Osmolality Calculated 290 mOsm/kg (285-295); Sodium 138 mmol/L (136-145); Total Bilirubin 0.3 mg/dL (0.15-1.2); Total Protein 6.5 g/dL (6.6-8.7)
[2020-08-21 10:04] LABS: Ammonia 14 umol/L (16-60)
[2020-08-21 10:09] LABS: Anion Gap 15.3 (5-19); Potassium 4.3 mmol/L (3.5-5.1)
== END 2020-08-26 23:59 | disposition home or self-care (01) ==
LOC: LAB 09:31
PROVIDERS: PCP Family Medicine; Visit Provider Family Medicine
DX: N17.0 Acute kidney failure with tubular necrosis (principal); E72.20 Disorder of urea cycle metabolism, unspecified; E74.04 McArdle disease
CPT/HCPCS: 36415; 80053; 82140; 82550; 85025

== ENCOUNTER 2020-09-18 09:54 | Outpatient (RCR) | payer MEDICAID, SELFPAY ==
[2020-09-05 08:57] LABS: Basophils % 0.6 %; Eosinophils # 0.2 10^3/uL (0.0-0.8); Eosinophils % 2.9 %; Hematocrit 49.3 % (42.0-52.0); Hemoglobin 16.1 g/dL (11.7-16.6); Lymphocytes # 2.1 10^3/uL (0.8-4.8); Lymphocytes % 31.5 %; Mean Corpuscular HGB Conc 32.7 g/dL (30.0-36.0); Mean Corpuscular Hemoglobin 28.9 pg (28.0-34.0); Mean Corpuscular Volume 88.5 fL (80-94); Mean Platelet Volume 10.2 fL (7.4-10.4); Monocytes # 0.4 10^3/uL (0.2-0.9); Monocytes % 6.3 %; Neutrophils # 3.84 10^3/uL (1.8-7.7); Neutrophils % 58.5 %; Nucleated Red Blood Cells % 0 %; Platelet Count 250 10^3/cmm (130-400); Red Blood Count 5.57 10^6/uL (4.1-5.3); Red Cell Distribution Width 14.2 % (12.1-15.1); White Blood Count 6.6 10^3/uL (4.0-10.0)
[2020-09-05 09:14] LABS: Ammonia 29 umol/L (16-60)
[2020-09-05 09:16] LABS: Alanine Aminotransferase 22 U/L (0-41); Albumin Level 4.4 g/dL (3.5-5.2); Alkaline Phosphatase 74 IU/L (40-130); Anion Gap 13.9 (5-19); Aspartate Amino Transferase 19 U/L (0-40); Blood Urea Nitrogen 19 mg/dL (6-20); Calcium 9.7 mg/dL (8.5-10.5); Carbon Dioxide 23 mmol/L (22-29); Chloride 108 mmol/L (98-107); Creatine Phosphokinase 70 U/L (39-308); Globulin 2.2 g/dL (1.3-4.6); Glomerular Filtration Rate 38.2 mL/min (90-130); Glucose 124 mg/dL (65-115); Osmolality Calculated 296 mOsm/kg (285-295); Potassium 3.9 mmol/L (3.5-5.1); Sodium 141 mmol/L (136-145); Total Bilirubin 0.3 mg/dL (0.15-1.2); Total Protein 6.6 g/dL (6.6-8.7)
[2020-09-18 10:31] LABS: Basophils % 0.4 %; Eosinophils # 0.3 10^3/uL (0.0-0.8); Eosinophils % 3.4 %; Hemoglobin 15.9 g/dL (11.7-16.6); Lymphocytes # 1.6 10^3/uL (0.8-4.8); Lymphocytes % 22.1 %; Mean Corpuscular HGB Conc 32.4 g/dL (30.0-36.0); Mean Corpuscular Volume 89.3 fL (80-94); Mean Platelet Volume 10.3 fL (7.4-10.4); Monocytes # 0.5 10^3/uL (0.2-0.9); Monocytes % 6.4 %; Neutrophils # 4.98 10^3/uL (1.8-7.7); Neutrophils % 67.6 %; Nucleated Red Blood Cells % 0 %; Platelet Count 228 10^3/cmm (130-400); Red Blood Count 5.49 10^6/uL (4.1-5.3); Red Cell Distribution Width 14.2 % (12.1-15.1); White Blood Count 7.4 10^3/uL (4.0-10.0)
[2020-09-18 10:50] LABS: Alanine Aminotransferase 38 U/L (0-41); Albumin Level 4.6 g/dL (3.5-5.2); Alkaline Phosphatase 79 IU/L (40-130); Anion Gap 14.2 (5-19); Aspartate Amino Transferase 35 U/L (0-40); Blood Urea Nitrogen 22 mg/dL (6-20); Calcium 9.7 mg/dL (8.5-10.5); Carbon Dioxide 24 mmol/L (22-29); Chloride 105 mmol/L (98-107); Creatine Phosphokinase 139 U/L (39-308); Globulin 2.3 g/dL (1.3-4.6); Glomerular Filtration Rate 38.2 mL/min (90-130); Glucose 99 mg/dL (65-115); Osmolality Calculated 291 mOsm/kg (285-295); Potassium 4.2 mmol/L (3.5-5.1); Sodium 139 mmol/L (136-145); Total Bilirubin 0.2 mg/dL (0.15-1.2); Total Protein 6.9 g/dL (6.6-8.7)
[2020-09-18 10:51] LABS: Ammonia 23 umol/L (16-60)
== END 2020-09-25 23:59 | disposition home or self-care (01) ==
LOC: LAB 09:54
PROVIDERS: PCP Family Medicine; Visit Provider Family Medicine
DX: N17.0 Acute kidney failure with tubular necrosis (principal); E72.20 Disorder of urea cycle metabolism, unspecified
CPT/HCPCS: 80053; 82140; 82550; 85025

== ENCOUNTER 2020-10-03 10:56 | Outpatient (RCR) | payer MEDICAID, SELFPAY ==
[2020-10-03 11:12] LABS: Basophils # 0.1 10^3/uL (0.0-0.1); Basophils % 0.8 %; Eosinophils # 0.3 10^3/uL (0.0-0.8); Eosinophils % 3.6 %; Hematocrit 47.3 % (42.0-52.0); Hemoglobin 15.3 g/dL (11.7-16.6); Lymphocytes % 27.4 %; Mean Corpuscular HGB Conc 32.3 g/dL (30.0-36.0); Mean Corpuscular Hemoglobin 28.7 pg (28.0-34.0); Mean Corpuscular Volume 88.7 fL (80-94); Mean Platelet Volume 9.7 fL (7.4-10.4); Monocytes # 0.5 10^3/uL (0.2-0.9); Monocytes % 7.3 %; Neutrophils # 4.34 10^3/uL (1.8-7.7); Neutrophils % 60.6 %; Nucleated Red Blood Cells % 0 %; Platelet Count 248 10^3/cmm (130-400); Red Blood Count 5.33 10^6/uL (4.1-5.3); Red Cell Distribution Width 14.6 % (12.1-15.1); White Blood Count 7.2 10^3/uL (4.0-10.0)
[2020-10-03 11:29] LABS: Alanine Aminotransferase 26 U/L (0-41); Albumin Level 4.4 g/dL (3.5-5.2); Alkaline Phosphatase 76 IU/L (40-130); Anion Gap 14.3 (5-19); Aspartate Amino Transferase 20 U/L (0-40); Blood Urea Nitrogen 19 mg/dL (6-20); Calcium 9.5 mg/dL (8.5-10.5); Carbon Dioxide 24 mmol/L (22-29); Chloride 107 mmol/L (98-107); Creatine Phosphokinase 78 U/L (39-308); Globulin 1.9 g/dL (1.3-4.6); Glucose 93 mg/dL (65-115); Osmolality Calculated 294 mOsm/kg (285-295); Potassium 4.3 mmol/L (3.5-5.1); Sodium 141 mmol/L (136-145); Total Bilirubin 0.2 mg/dL (0.15-1.2); Total Protein 6.3 g/dL (6.6-8.7)
[2020-10-03 11:30] LABS: Ammonia 23 umol/L (16-60)
== END 2020-10-26 23:59 | disposition home or self-care (01) ==
LOC: LAB 10:56
PROVIDERS: PCP Family Medicine; Visit Provider Family Medicine
DX: N17.0 Acute kidney failure with tubular necrosis (principal); E72.20 Disorder of urea cycle metabolism, unspecified
CPT/HCPCS: 36415; 80053; 82140; 82550; 85025

== ENCOUNTER 2020-11-13 09:11 | Outpatient (CLI) | payer MEDICAID, SELFPAY ==
[2020-11-13 09:44] LABS: Basophils # 0.1 10^3/uL (0.0-0.1); Basophils % 0.8 %; Eosinophils # 0.4 10^3/uL (0.0-0.8); Eosinophils % 6.3 %; Hemoglobin 14.1 g/dL (11.7-16.6); Lymphocytes # 1.6 10^3/uL (0.8-4.8); Lymphocytes % 27.1 %; Mean Corpuscular HGB Conc 31.3 g/dL (30.0-36.0); Mean Corpuscular Hemoglobin 28.9 pg (28.0-34.0); Mean Corpuscular Volume 92.2 fL (80-94); Mean Platelet Volume 9.9 fL (7.4-10.4); Monocytes # 0.5 10^3/uL (0.2-0.9); Monocytes % 8.9 %; Neutrophils # 3.43 10^3/uL (1.8-7.7); Neutrophils % 56.7 %; Nucleated Red Blood Cells % 0 %; Platelet Count 215 10^3/cmm (130-400); Red Blood Count 4.88 10^6/uL (4.1-5.3); Red Cell Distribution Width 13.8 % (12.1-15.1); White Blood Count 6.1 10^3/uL (4.0-10.0)
[2020-11-13 10:05] LABS: Alanine Aminotransferase 18 U/L (0-41); Albumin Level 4.1 g/dL (3.5-5.2); Alkaline Phosphatase 68 IU/L (40-130); Anion Gap 12.1 (5-19); Aspartate Amino Transferase 16 U/L (0-40); Blood Urea Nitrogen 22 mg/dL (6-20); Calcium 9.1 mg/dL (8.5-10.5); Carbon Dioxide 27 mmol/L (22-29); Chloride 105 mmol/L (98-107); Creatine Phosphokinase 179 U/L (39-308); Globulin 2.1 g/dL (1.3-4.6); Glomerular Filtration Rate 32.2 mL/min (90-130); Glucose 83 mg/dL (65-115); Osmolality Calculated 292 mOsm/kg (285-295); Potassium 4.1 mmol/L (3.5-5.1); Sodium 140 mmol/L (136-145); Total Bilirubin 0.3 mg/dL (0.15-1.2); Total Protein 6.2 g/dL (6.6-8.7)
[2020-11-13 10:06] LABS: Ammonia 28 umol/L (16-60)
== END 2020-11-13 09:12 | disposition home or self-care (01) ==
PROVIDERS: PCP Family Medicine; Visit Provider Family Medicine
DX: N17.0 Acute kidney failure with tubular necrosis (principal); E72.20 Disorder of urea cycle metabolism, unspecified
CPT/HCPCS: 36415; 80053; 82140; 82550; 85025

== ENCOUNTER 2020-11-22 09:18 | Outpatient (RCR) | payer MEDICAID, SELFPAY ==
[2020-10-30 09:01] LABS: Basophils # 0.1 10^3/uL (0.0-0.1); Basophils % 0.8 %; Eosinophils # 0.3 10^3/uL (0.0-0.8); Eosinophils % 2.6 %; Hematocrit 52.5 % (42.0-52.0); Hemoglobin 16.9 g/dL (11.7-16.6); Lymphocytes # 2.1 10^3/uL (0.8-4.8); Lymphocytes % 19.9 %; Mean Corpuscular HGB Conc 32.2 g/dL (30.0-36.0); Mean Corpuscular Hemoglobin 28.9 pg (28.0-34.0); Mean Corpuscular Volume 89.9 fL (80-94); Monocytes # 0.6 10^3/uL (0.2-0.9); Monocytes % 6.1 %; Neutrophils % 70.2 %; Nucleated Red Blood Cells % 0 %; Platelet Count 300 10^3/cmm (130-400); Red Blood Count 5.84 10^6/uL (4.1-5.3); Red Cell Distribution Width 14.1 % (12.1-15.1); White Blood Count 10.5 10^3/uL (4.0-10.0)
[2020-10-30 09:22] LABS: Ammonia 26 umol/L (16-60)
[2020-10-30 09:24] LABS: Alanine Aminotransferase 23 U/L (0-41); Albumin Level 4.7 g/dL (3.5-5.2); Alkaline Phosphatase 85 IU/L (40-130); Aspartate Amino Transferase 20 U/L (0-40); Blood Urea Nitrogen 20 mg/dL (6-20); Calcium 9.4 mg/dL (8.5-10.5); Carbon Dioxide 22 mmol/L (22-29); Chloride 106 mmol/L (98-107); Creatine Phosphokinase 71 U/L (39-308); Globulin 2.2 g/dL (1.3-4.6); Glucose 109 mg/dL (65-115); Osmolality Calculated 295 mOsm/kg (285-295); Sodium 141 mmol/L (136-145); Total Bilirubin 0.3 mg/dL (0.15-1.2); Total Protein 6.9 g/dL (6.6-8.7)
[2020-11-06 08:32] LABS: Basophils # 0.1 10^3/uL (0.0-0.1); Eosinophils # 0.3 10^3/uL (0.0-0.8); Eosinophils % 4.4 %; Hematocrit 50.6 % (42.0-52.0); Hemoglobin 16.1 g/dL (11.7-16.6); Lymphocytes # 2.1 10^3/uL (0.8-4.8); Lymphocytes % 27.1 %; Mean Corpuscular HGB Conc 31.8 g/dL (30.0-36.0); Mean Corpuscular Hemoglobin 28.8 pg (28.0-34.0); Mean Corpuscular Volume 90.5 fL (80-94); Mean Platelet Volume 10.2 fL (7.4-10.4); Monocytes # 0.6 10^3/uL (0.2-0.9); Monocytes % 7.3 %; Neutrophils # 4.58 10^3/uL (1.8-7.7); Neutrophils % 59.9 %; Nucleated Red Blood Cells % 0 %; Platelet Count 297 10^3/cmm (130-400); Red Blood Count 5.59 10^6/uL (4.1-5.3); White Blood Count 7.7 10^3/uL (4.0-10.0)
[2020-11-06 08:48] LABS: Ammonia 18 umol/L (16-60)
[2020-11-06 08:53] LABS: Alanine Aminotransferase 13 U/L (0-41); Albumin Level 4.4 g/dL (3.5-5.2); Alkaline Phosphatase 76 IU/L (40-130); Anion Gap 13.4 (5-19); Aspartate Amino Transferase 13 U/L (0-40); Blood Urea Nitrogen 21 mg/dL (6-20); Calcium 9.5 mg/dL (8.5-10.5); Carbon Dioxide 25 mmol/L (22-29); Chloride 106 mmol/L (98-107); Creatine Phosphokinase 73 U/L (39-308); Globulin 1.9 g/dL (1.3-4.6); Glomerular Filtration Rate 38.2 mL/min (90-130); Glucose 85 mg/dL (65-115); Osmolality Calculated 292 mOsm/kg (285-295); Potassium 4.4 mmol/L (3.5-5.1); Sodium 140 mmol/L (136-145); Total Bilirubin 0.3 mg/dL (0.15-1.2); Total Protein 6.3 g/dL (6.6-8.7)
[2020-11-22 09:51] LABS: Basophils % 0.5 %; Eosinophils # 0.2 10^3/uL (0.0-0.8); Eosinophils % 2.4 %; Hematocrit 51.7 % (42.0-52.0); Hemoglobin 16.7 g/dL (11.7-16.6); Lymphocytes # 1.5 10^3/uL (0.8-4.8); Lymphocytes % 20.2 %; Mean Corpuscular HGB Conc 32.3 g/dL (30.0-36.0); Mean Corpuscular Volume 89.8 fL (80-94); Mean Platelet Volume 10.6 fL (7.4-10.4); Monocytes # 0.4 10^3/uL (0.2-0.9); Monocytes % 5.4 %; Neutrophils # 5.43 10^3/uL (1.8-7.7); Neutrophils % 71.2 %; Nucleated Red Blood Cells % 0 %; Platelet Count 198 10^3/cmm (130-400); Red Blood Count 5.76 10^6/uL (4.1-5.3); Red Cell Distribution Width 13.3 % (12.1-15.1); White Blood Count 7.6 10^3/uL (4.0-10.0)
[2020-11-22 10:28] LABS: Alanine Aminotransferase 18 U/L (0-41); Albumin Level 4.6 g/dL (3.5-5.2); Alkaline Phosphatase 78 IU/L (40-130); Anion Gap 12.8 (5-19); Aspartate Amino Transferase 19 U/L (0-40); Blood Urea Nitrogen 28 mg/dL (6-20); Calcium 10.1 mg/dL (8.5-10.5); Carbon Dioxide 26 mmol/L (22-29); Chloride 103 mmol/L (98-107); Creatine Phosphokinase 74 U/L (39-308); Globulin 2.4 g/dL (1.3-4.6); Glucose 107 mg/dL (65-115); Osmolality Calculated 290 mOsm/kg (285-295); Potassium 4.8 mmol/L (3.5-5.1); Sodium 137 mmol/L (136-145); Total Bilirubin 0.4 mg/dL (0.15-1.2)
[2020-11-22 10:29] LABS: Ammonia 18 umol/L (16-60)
== END 2020-11-26 23:59 | disposition home or self-care (01) ==
LOC: LAB 09:18
PROVIDERS: PCP Family Medicine; Visit Provider Family Medicine
DX: N17.0 Acute kidney failure with tubular necrosis (principal); E72.20 Disorder of urea cycle metabolism, unspecified
CPT/HCPCS: 36415; 80053; 82140; 82550; 85025

== ENCOUNTER 2020-12-18 09:02 | Outpatient (RCR) | payer MEDICAID, SELFPAY ==
[2020-12-14 09:05] VITALS: BP 102/65; PULSE 63; RESP 18; TEMP 36.6; O2SAT 98
[2020-12-14] MEDS: sodium chloride 0.9% 1,000 ML 250 ML IV (09:35)
[2020-12-14 09:54] VITALS: BMI 23.7
== END 2020-12-24 23:59 | disposition home or self-care (01) ==
LOC: OPS 09:02
PROVIDERS: PCP Family Medicine; Visit Provider Family Medicine
DX: N17.0 Acute kidney failure with tubular necrosis (principal)
CPT/HCPCS: 96360; 96361; J7030

== ENCOUNTER 2020-12-18 09:18 | Outpatient (RCR) | payer MEDICAID, SELFPAY ==
[2020-12-04 09:46] LABS: Basophils # 0.1 10^3/uL (0.0-0.1); Basophils % 0.9 %; Eosinophils # 0.2 10^3/uL (0.0-0.8); Eosinophils % 3.4 %; Hematocrit 50.6 % (42.0-52.0); Hemoglobin 16.4 g/dL (11.7-16.6); Lymphocytes # 1.8 10^3/uL (0.8-4.8); Lymphocytes % 26.8 %; Mean Corpuscular HGB Conc 32.4 g/dL (30.0-36.0); Mean Corpuscular Hemoglobin 29.1 pg (28.0-34.0); Mean Corpuscular Volume 89.9 fL (80-94); Mean Platelet Volume 10.4 fL (7.4-10.4); Monocytes # 0.5 10^3/uL (0.2-0.9); Monocytes % 7.5 %; Neutrophils # 4.03 10^3/uL (1.8-7.7); Neutrophils % 61.4 %; Nucleated Red Blood Cells % 0 %; Platelet Count 256 10^3/cmm (130-400); Red Blood Count 5.63 10^6/uL (4.1-5.3); Red Cell Distribution Width 13.5 % (12.1-15.1); White Blood Count 6.6 10^3/uL (4.0-10.0)
[2020-12-04 09:59] LABS: Ammonia 31 umol/L (16-60)
[2020-12-04 10:00] LABS: Alanine Aminotransferase 14 U/L (0-41); Albumin Level 4.4 g/dL (3.5-5.2); Alkaline Phosphatase 78 IU/L (40-130); Blood Urea Nitrogen 24 mg/dL (6-20); Calcium 9.4 mg/dL (8.5-10.5); Carbon Dioxide 26 mmol/L (22-29); Chloride 107 mmol/L (98-107); Creatine Phosphokinase 89 U/L (39-308); Globulin 2.2 g/dL (1.3-4.6); Glomerular Filtration Rate 40.6 mL/min (90-130); Glucose 95 mg/dL (65-115); Osmolality Calculated 296 mOsm/kg (285-295); Sodium 141 mmol/L (136-145); Total Bilirubin 0.3 mg/dL (0.15-1.2); Total Protein 6.6 g/dL (6.6-8.7)
[2020-12-04 10:07] LABS: Anion Gap 12.5 (5-19); Aspartate Amino Transferase 17 U/L (0-40); Potassium 4.5 mmol/L (3.5-5.1)
[2020-12-12 09:45] LABS: Alanine Aminotransferase 15 U/L (0-41); Albumin Level 4.6 g/dL (3.5-5.2); Alkaline Phosphatase 82 IU/L (40-130); Ammonia 48 umol/L (16-60); Anion Gap 11.6 (5-19); Aspartate Amino Transferase 24 U/L (0-40); Blood Urea Nitrogen 19 mg/dL (6-20); Calcium 9.3 mg/dL (8.5-10.5); Carbon Dioxide 28 mmol/L (22-29); Chloride 99 mmol/L (98-107); Glomerular Filtration Rate 29.2 mL/min (90-130); Glucose 82 mg/dL (65-115); Osmolality Calculated 281 mOsm/kg (285-295); Potassium 3.6 mmol/L (3.5-5.1); Sodium 135 mmol/L (136-145); Total Bilirubin 0.4 mg/dL (0.15-1.2); Total Protein 6.6 g/dL (6.6-8.7)
[2020-12-12 09:48] LABS: Basophils # 0.1 10^3/uL (0.0-0.1); Basophils % 0.6 %; Eosinophils # 0.4 10^3/uL (0.0-0.8); Hematocrit 46.9 % (42.0-52.0); Hemoglobin 15.2 g/dL (11.7-16.6); Lymphocytes # 2.1 10^3/uL (0.8-4.8); Lymphocytes % 26.7 %; Mean Corpuscular HGB Conc 32.4 g/dL (30.0-36.0); Mean Corpuscular Hemoglobin 28.8 pg (28.0-34.0); Mean Corpuscular Volume 88.8 fL (80-94); Mean Platelet Volume 10.6 fL (7.4-10.4); Monocytes # 0.7 10^3/uL (0.2-0.9); Monocytes % 9.2 %; Neutrophils # 4.54 10^3/uL (1.8-7.7); Neutrophils % 58.2 %; Nucleated Red Blood Cells % 0 %; Platelet Count 204 10^3/cmm (130-400); Red Blood Count 5.28 10^6/uL (4.1-5.3); Red Cell Distribution Width 13.2 % (12.1-15.1); White Blood Count 7.8 10^3/uL (4.0-10.0)
[2020-12-14 11:00] LABS: Creatine Phosphokinase 323 U/L (39-308)
[2020-12-18 10:29] LABS: Basophils # 0.1 10^3/uL (0.0-0.1); Basophils % 0.7 %; Eosinophils # 0.2 10^3/uL (0.0-0.8); Eosinophils % 3.1 %; Hematocrit 50.7 % (42.0-52.0); Hemoglobin 16.1 g/dL (11.7-16.6); Lymphocytes # 1.3 10^3/uL (0.8-4.8); Lymphocytes % 17.5 %; Mean Corpuscular HGB Conc 31.8 g/dL (30.0-36.0); Mean Corpuscular Volume 91.2 fL (80-94); Mean Platelet Volume 10.7 fL (7.4-10.4); Monocytes # 0.5 10^3/uL (0.2-0.9); Monocytes % 7.3 %; Neutrophils # 5.08 10^3/uL (1.8-7.7); Neutrophils % 71.1 %; Nucleated Red Blood Cells % 0 %; Platelet Count 222 10^3/cmm (130-400); Red Blood Count 5.56 10^6/uL (4.1-5.3); Red Cell Distribution Width 13.3 % (12.1-15.1); White Blood Count 7.1 10^3/uL (4.0-10.0)
[2020-12-18 10:58] LABS: Ammonia 23 umol/L (16-60)
[2020-12-18 10:59] LABS: Alanine Aminotransferase 15 U/L (0-41); Albumin Level 4.2 g/dL (3.5-5.2); Alkaline Phosphatase 88 IU/L (40-130); Anion Gap 14.2 (5-19); Aspartate Amino Transferase 17 U/L (0-40); Blood Urea Nitrogen 13 mg/dL (6-20); Calcium 9.4 mg/dL (8.5-10.5); Carbon Dioxide 25 mmol/L (22-29); Chloride 106 mmol/L (98-107); Creatine Phosphokinase 106 U/L (39-308); Globulin 2.6 g/dL (1.3-4.6); Glucose 92 mg/dL (65-115); Osmolality Calculated 292 mOsm/kg (285-295); Potassium 4.2 mmol/L (3.5-5.1); Sodium 141 mmol/L (136-145); Total Bilirubin 0.3 mg/dL (0.15-1.2); Total Protein 6.8 g/dL (6.6-8.7)
== END 2020-12-24 23:59 | disposition home or self-care (01) ==
LOC: LAB 09:18
PROVIDERS: PCP Family Medicine; Visit Provider Family Medicine
DX: N17.0 Acute kidney failure with tubular necrosis (principal); E72.20 Disorder of urea cycle metabolism, unspecified
CPT/HCPCS: 36415; 80053; 82140; 82550; 85025

== ENCOUNTER 2021-01-03 15:02 | Outpatient (CLI) | payer MEDICAID, SELFPAY ==
--- NOTE | 2021-01-03 15:00 | USCV_ITS ---
Julian Cristobal Age: 45 Gender: M : 1975 Exam Date: 01/03/2021 15:21 Ordering Phys: Juanita Urrutia Technologist: Catherine Mckeon Exam Location: [facility] Indication: shortness of breath BP: 131 / 62 HR: 78 Rhythm: Sinus Technical Quality: Adequate MEASUREMENTS (Male / Female) Normal Values 2D ECHO LV Diastolic Diameter PLAX 3.8 cm 4.2 - 5.9 / 3.9 - 5.3 cm LV Systolic Diameter PLAX 2.8 cm LV Chamber Size 2.8 cm IVS Diastolic Thickness 1.3 cm 0.6 - 1.0 / 0.6 - 0.9 cm IVS Systolic Thickness 1.8 cm LVPW Diastolic Thickness 2.0 cm 0.6 - 1.0 / 0.6 - 0.9 cm LVPW Systolic Thickness 2.3 cm RV Chamber Size 2.8 cm LVOT Diameter 2.0 cm LV Ejection Fraction 2D Teich 52.0 % LV Ejection Fraction MOD 2C 64.6 % LV Ejection Fraction 2C AL 67.1 % LA Diameter 3.1 cm LA Width 3.0 cm LA Height 4.2 cm RA Width 2.9 cm RA Height 3.7 cm Aorta at Sinotubular Diameter 3.4 cm M-MODE LV Diastolic Diameter MM 5.6 cm 4.2 - 5.9 / 3.9 - 5.3 cm LV Systolic Diameter MM 3.8 cm LV Ejection Fraction MM Teich 58.0 % IVS Diastolic Thickness MM 1.1 cm 0.6 - 1.0 / 0.6 - 0.9 cm IVS Systolic Thickness MM 1.8 cm LVPW Diastolic Thickness MM 1.2 cm 0.6 - 1.0 / 0.6 - 0.9 cm LVPW Systolic Thickness MM 1.4 cm Aortic Annulus Diameter 3.4 cm LA Ao Ratio MM 1.1 MV E Point Septal Separation 0.8 cm DOPPLER AV Peak Velocity 145.0 cm/s LVOT Peak Velocity 105.0 cm/s AV Area Cont Eq vti 2.7 cm squared AV Area Cont Eq pk 2.4 cm squared MV Area PHT 3.5 cm squared Mitral E to A Ratio 0.8 MV E' Velocity 36.5 cm/s Mitral E to MV E' Ratio 5.7 Mitral E to LV E' Lateral Ratio 6.0 Mitral E to LV E' Septal Ratio 5.5 TR Peak Velocity 193.3 cm/s TR Peak Gradient 15.0 mmHg TV Peak E Velocity 63.0 cm/s Right Atrial Pressure 3.0 mmHg Pulmonary Artery Systolic Pressu 18.0 mmHg PV Peak Velocity 116.0 cm/s RV Acceleration Time 0.1 s RV Ejection Time 0.4 s RV AcT/ET 0.1 FINDINGS Left Ventricle Normal left ventricular cavity size. Normal left ventricular systolic function. No regional wall motion abnormalities. Left ventricular ejection fraction is estimated at 58 %. Grade I/IV diastolic dysfunction (abnormal relaxation filling pattern), normal to mildly elevated filling pressures. Right Ventricle The right ventricle is normal in size and function. Right Atrium The right atrium is normal in size. Left Atrium The left atrium is normal in size. Mitral Valve Structurally normal mitral valve without significant stenosis or prolapse. There is no mitral regurgitation. Aortic Valve Structurally normal aortic valve without significant sclerosis or stenosis. There is no aortic regurgitation. Tricuspid Valve Structurally normal tricuspid valve without significant stenosis or regurgitation. Pulmonary artery systolic pressure is normal. Pulmonic Valve Structurally normal pulmonic valve without significant stenosis. There is no pulmonic regurgitation. Pericardium Normal pericardium without effusion. Aorta Normal ascending aorta dimension. CONCLUSIONS 1-Normal left ventricular cavity size. Normal left ventricular systolic function. No regional wall motion abnormalities. Left ventricular ejection fraction is estimated at 58 %. Grade I/IV diastolic dysfunction (abnormal relaxation filling pattern), normal to mildly elevated filling pressures. 2-No significant valve abnormalities. 3-There is no pericardial effusion. 4-Pulmonary artery systolic pressure is within normal limits. 5-Right atrial pressure is around 5 mm of mercury. 6-No significant change since the prior echocardiogram study of 02/09/2019. Shruthi Gonzales MD (Electronically Signed) Final Date: 03 January 2021 18:36 S
== END 2021-01-03 15:03 | disposition home or self-care (01) ==
LOC: RAD 15:04
PROVIDERS: PCP Family Medicine; Visit Provider Nurse Practitioner Family
DX: R06.02 Shortness of breath (principal)
CPT/HCPCS: 93306

== ENCOUNTER 2021-01-15 09:39 | Outpatient (RCR) | payer MEDICAID, SELFPAY ==
[2020-12-25 08:38] LABS: Basophils # 0.1 10^3/uL (0.0-0.1); Basophils % 0.9 %; Eosinophils # 0.2 10^3/uL (0.0-0.8); Eosinophils % 2.8 %; Hematocrit 52.5 % (42.0-52.0); Lymphocytes # 2.2 10^3/uL (0.8-4.8); Mean Corpuscular HGB Conc 32.4 g/dL (30.0-36.0); Mean Corpuscular Hemoglobin 28.8 pg (28.0-34.0); Mean Platelet Volume 10.4 fL (7.4-10.4); Monocytes # 0.6 10^3/uL (0.2-0.9); Monocytes % 7.2 %; Neutrophils # 5.08 10^3/uL (1.8-7.7); Neutrophils % 61.9 %; Nucleated Red Blood Cells % 0 %; Platelet Count 242 10^3/cmm (130-400); Red Cell Distribution Width 13.2 % (12.1-15.1); White Blood Count 8.2 10^3/uL (4.0-10.0)
[2020-12-25 08:54] LABS: Ammonia 18 umol/L (16-60)
[2020-12-25 08:55] LABS: Alanine Aminotransferase 14 U/L (0-41); Albumin Level 4.7 g/dL (3.5-5.2); Alkaline Phosphatase 79 IU/L (40-130); Anion Gap 13.9 (5-19); Aspartate Amino Transferase 14 U/L (0-40); Blood Urea Nitrogen 19 mg/dL (6-20); Carbon Dioxide 26 mmol/L (22-29); Chloride 104 mmol/L (98-107); Creatine Phosphokinase 99 U/L (39-308); Globulin 2.4 g/dL (1.3-4.6); Glucose 86 mg/dL (65-115); Osmolality Calculated 290 mOsm/kg (285-295); Potassium 4.9 mmol/L (3.5-5.1); Sodium 139 mmol/L (136-145); Total Bilirubin 0.4 mg/dL (0.15-1.2); Total Protein 7.1 g/dL (6.6-8.7)
[2020-12-25 16:28] LABS: NT Pro B Type Natriuretic Pept 478 pg/mL (0-125)
[2021-01-01 09:33] LABS: Basophils # 0.1 10^3/uL (0.0-0.1); Basophils % 0.9 %; Eosinophils # 0.3 10^3/uL (0.0-0.8); Eosinophils % 3.2 %; Hematocrit 51.8 % (42.0-52.0); Hemoglobin 16.6 g/dL (11.7-16.6); Lymphocytes # 2.2 10^3/uL (0.8-4.8); Lymphocytes % 28.8 %; Mean Corpuscular Hemoglobin 28.5 pg (28.0-34.0); Mean Corpuscular Volume 88.9 fL (80-94); Mean Platelet Volume 10.5 fL (7.4-10.4); Monocytes # 0.6 10^3/uL (0.2-0.9); Monocytes % 7.1 %; Neutrophils # 4.61 10^3/uL (1.8-7.7); Neutrophils % 59.7 %; Nucleated Red Blood Cells % 0 %; Platelet Count 280 10^3/cmm (130-400); Red Blood Count 5.83 10^6/uL (4.1-5.3); Red Cell Distribution Width 13.7 % (12.1-15.1); White Blood Count 7.7 10^3/uL (4.0-10.0)
[2021-01-01 09:40] LABS: Ammonia 20 umol/L (16-60)
[2021-01-01 09:41] LABS: Alanine Aminotransferase 15 U/L (0-41); Albumin Level 4.6 g/dL (3.5-5.2); Alkaline Phosphatase 78 IU/L (40-130); Anion Gap 15.1 (5-19); Aspartate Amino Transferase 15 U/L (0-40); Blood Urea Nitrogen 20 mg/dL (6-20); Calcium 9.7 mg/dL (8.5-10.5); Carbon Dioxide 22 mmol/L (22-29); Chloride 107 mmol/L (98-107); Creatine Phosphokinase 79 U/L (39-308); Globulin 2.3 g/dL (1.3-4.6); Glomerular Filtration Rate 38.2 mL/min (90-130); Glucose 92 mg/dL (65-115); Osmolality Calculated 292 mOsm/kg (285-295); Potassium 4.1 mmol/L (3.5-5.1); Sodium 140 mmol/L (136-145); Total Bilirubin 0.3 mg/dL (0.15-1.2); Total Protein 6.9 g/dL (6.6-8.7)
[2021-01-08 10:34] LABS: Basophils # 0.1 10^3/uL (0.0-0.1); Basophils % 1.1 %; Eosinophils # 0.3 10^3/uL (0.0-0.8); Eosinophils % 3.6 %; Hematocrit 51.1 % (42.0-52.0); Hemoglobin 16.6 g/dL (11.7-16.6); Lymphocytes # 2.2 10^3/uL (0.8-4.8); Lymphocytes % 29.9 %; Mean Corpuscular HGB Conc 32.5 g/dL (30.0-36.0); Mean Corpuscular Hemoglobin 29.1 pg (28.0-34.0); Mean Corpuscular Volume 89.6 fL (80-94); Mean Platelet Volume 10.1 fL (7.4-10.4); Monocytes # 0.5 10^3/uL (0.2-0.9); Monocytes % 6.8 %; Neutrophils # 4.36 10^3/uL (1.8-7.7); Neutrophils % 58.3 %; Nucleated Red Blood Cells % 0 %; Platelet Count 241 10^3/cmm (130-400); Red Cell Distribution Width 13.6 % (12.1-15.1); White Blood Count 7.5 10^3/uL (4.0-10.0)
[2021-01-08 10:57] LABS: Ammonia 32 umol/L (16-60)
[2021-01-08 11:08] LABS: Alanine Aminotransferase 16 U/L (0-41); Albumin Level 4.5 g/dL (3.5-5.2); Alkaline Phosphatase 73 IU/L (40-130); Anion Gap 12.9 (5-19); Aspartate Amino Transferase 18 U/L (0-40); Blood Urea Nitrogen 17 mg/dL (6-20); Calcium 9.4 mg/dL (8.5-10.5); Carbon Dioxide 25 mmol/L (22-29); Chloride 103 mmol/L (98-107); Creatine Phosphokinase 107 U/L (39-308); Globulin 2.3 g/dL (1.3-4.6); Glomerular Filtration Rate 38.2 mL/min (90-130); Glucose 88 mg/dL (65-115); Osmolality Calculated 285 mOsm/kg (285-295); Potassium 3.9 mmol/L (3.5-5.1); Sodium 137 mmol/L (136-145); Total Bilirubin 0.3 mg/dL (0.15-1.2); Total Protein 6.8 g/dL (6.6-8.7)
[2021-01-16 13:56] LABS: Ammonia 25 umol/L (16-60); Chloride 102 mmol/L (98-107); Potassium 3.7 mmol/L (3.5-5.1); Sodium 136 mmol/L (136-145)
[2021-01-16 13:57] LABS: Anion Gap 13.7 (5-19); Aspartate Amino Transferase 19 U/L (0-40); Blood Urea Nitrogen 14 mg/dL (6-20); Calcium 8.8 mg/dL (8.5-10.5); Carbon Dioxide 24 mmol/L (22-29); Glucose 73 mg/dL (65-115); Osmolality Calculated 281 mOsm/kg (285-295); Total Bilirubin 0.3 mg/dL (0.15-1.2)
[2021-01-16 13:58] LABS: Alanine Aminotransferase 18 U/L (0-41); Albumin Level 3.7 g/dL (3.5-5.2); Alkaline Phosphatase 81 IU/L (40-130); Creatine Phosphokinase 184 U/L (39-308); Globulin 2.5 g/dL (1.3-4.6); Total Protein 6.2 g/dL (6.6-8.7)
[2021-01-16 13:59] LABS: Hematocrit 43.6 % (42.0-52.0); Hemoglobin 13.5 g/dL (11.7-16.6); Mean Corpuscular Volume 93.6 fL (80-94); Mean Platelet Volume 11.3 fL (7.4-10.4); Platelet Count 191 10^3/cmm (130-400); Red Blood Count 4.66 10^6/uL (4.1-5.3); White Blood Count 7.2 10^3/uL (4.0-10.0)
[2021-01-16 14:01] LABS: Basophils % 0.4 %; Eosinophils # 0.3 10^3/uL (0.0-0.8); Eosinophils % 4.6 %; Lymphocytes # 1.3 10^3/uL (0.8-4.8); Lymphocytes % 17.9 %; Monocytes # 0.8 10^3/uL (0.2-0.9); Monocytes % 11.2 %; Neutrophils # 4.69 10^3/uL (1.8-7.7); Neutrophils % 65.5 %
== END 2021-01-24 23:59 | disposition home or self-care (01) ==
LOC: LAB 09:39
PROVIDERS: PCP Family Medicine; Visit Provider Family Medicine
DX: E74.04 McArdle disease (principal); E72.20 Disorder of urea cycle metabolism, unspecified; N17.0 Acute kidney failure with tubular necrosis
CPT/HCPCS: 36415; 80053; 82140; 82550; 83880; 85025

== ENCOUNTER 2021-02-05 10:21 | Outpatient (CLI) | payer MEDICAID, SELFPAY ==
[2021-02-05 10:51] VITALS: BMI 24.6
--- NOTE | 2021-02-05 10:52 | ECG_ITS ---
[facility] Test Date: 2021-02-05 Pat Name: Julian Cristobal Department: Room: Gender: Male Tapeman: : 1975 Requested By: Juanita Urrutia Order Number: [id number] Odom MD: Mavis Salamanca M.D. Interpretive Statements NAME OF STUDY: EXERCISE SESTAMIBI STRESS TEST INDICATION: Chest Pain Baseline blood pressure of 142/103 mm Hg, heart rate of 65 beats per minute and oxygen saturation 96%. EKG showed normal sinus rhythm, normal axis with possible old anteroseptal infarct. The patient exercised for 10 minutes and 7 seconds on a standard Thom protocol. Patient attained a maximum heart rate of 150 beats per minute(86% of the maximum predicted heart rate) with a blood pressure at the peak exercise of 194/88 mm Hg. The EKG at the peak exercise revealed sinus tachycardia with no significant ST-T wave changes. Artifact. Patient did not have any chest pain or any significant arrhythmis with the exercise. The study was terminated due to exertional dyspnea and fatigue. During the recovery phase, there were no new changes. Blood pressure at the end of the recovery phase was 101/60 mm Hg with a heart rate of 90 beats per minute and oxygen saturation of 98%. CONCLUSION: 1. Normal EKG response to treadmill exercise. 2. No exercise-induced chest pain or cardiac arrhythmia. 3. Excellent exercise tolerance, attained a maximum of 13.5 METs. Maximum VO2 of 47.3 mL/kg/min. 4. Baseline hypertension with normal response to exercise. 5. Perfusion scan will be documented separately. Electronically Signed On 02-06-2021 17:36:40 CDT by Mavis Salamanca M.D. [id number]
--- NOTE | 2021-02-05 10:52 | NMCV_ITS ---
NM fabiana perf SPECT r/s* [id number] Julian Cristobal Age: 45 Gender: M : 1975 Exam Date: 02/05/2021 12:06 Ordering Phys: Juanita Urrutia Technologist: DOROTEO Ortega Exam Location: [facility] Indications: ATHEROSCLEROTIC HEART DISEASE STRESS TEST Please [facility] IMAGE PROTOCOL Rest/Stress 1 Exercise Day Radiopharmaceutical Dose (mCi) Administration Site Administered by Rest: Tc-99m 10.7 IV DOROTEO Ortega Sestamibi Stress:Tc-99m 32.8 IV DOROTEO Elizondo Sestamibi Rest: 05-Feb-2021 60 Discovery 630 Stress: 05-Feb-2021 30 Discovery 630 Radiopharmaceutical was injected at 86 % maximum heart rate. Images obtained in supine and prone position. SPECT RESULTS Technical Quality: Excellent Raw Data Analysis: Normal Image Corrections: No attenuation or motion correction applied Summed Stress Score: 11 Summed Rest Score: 7 Summed Difference Score: 4 PERFUSION FINDINGS Small size perfusion abnormality of mild severity of mid inferoseptal, apical septal, apical inferior and apical kulkarni on rest images with subtle reversibility in mid inferoseptal and mid anteroseptal kulkarni on supine stress images. There is somewhat improved tracer uptake in septal wall on prone stress images. FUNCTIONAL RESULTS (calculated via Gated SPECT) Stress Image LV EF (%): 77 Stress EDV (mL):86 TID: 0.61 Stress ESV (mL):20 FUNCTIONAL FINDINGS: The left ventricle is normal in size. Transient Ischemia Dilatation of 0.61. There is normal left ventricular systolic function. The left ventricular ejection fraction is normal with a value of 77%. There is normal left ventricular wall thickening with no regional wall motion abnormality. Normal end-diastolic and end-systolic volumes. IMPRESSIONS 1. Small sized fixed perfusion abnormality of apical kulkarni. This may represent old myocardial infarction or attenuation artifact. 2. Small sized paradoxical perfusion abnormality of septal wall likely represents attenuation artifact. 3. The left ventricular ejection fraction is normal with a value of 77% with no regional wall motion abnormality. 4. No coronary ischemia based on the study. Mavis Salamanca MD (Electronically Signed) Final Date: 06 February 2021 17:30 S
[2021-02-05 14:05] VITALS: BP 101/60; PULSE 79
== END 2021-02-05 10:22 | disposition home or self-care (01) ==
LOC: CDL 10:22
PROVIDERS: PCP Family Medicine; Visit Provider Nurse Practitioner Family
DX: R07.9 Chest pain, unspecified (principal); I25.10 Atherosclerotic heart disease of native coronary artery without angina pectoris
CPT/HCPCS: 78452; 93017; A9500

== ENCOUNTER 2021-02-07 08:29 | Outpatient (RCR) | payer MEDICAID, SELFPAY ==
[2021-01-26 09:55] LABS: Basophils # 0.1 10^3/uL (0.0-0.1); Eosinophils # 0.3 10^3/uL (0.0-0.8); Eosinophils % 3.4 %; Hemoglobin 15.5 g/dL (11.7-16.6); Lymphocytes % 26.4 %; Mean Corpuscular HGB Conc 32.3 g/dL (30.0-36.0); Mean Corpuscular Hemoglobin 28.5 pg (28.0-34.0); Mean Corpuscular Volume 88.2 fL (80-94); Monocytes # 0.4 10^3/uL (0.2-0.9); Monocytes % 5.7 %; Neutrophils # 4.87 10^3/uL (1.8-7.7); Neutrophils % 63.1 %; Nucleated Red Blood Cells % 0 %; Platelet Count 282 10^3/cmm (130-400); Red Blood Count 5.44 10^6/uL (4.1-5.3); Red Cell Distribution Width 13.9 % (12.1-15.1); White Blood Count 7.7 10^3/uL (4.0-10.0)
[2021-01-26 10:07] LABS: Alanine Aminotransferase 14 U/L (0-41); Albumin Level 4.3 g/dL (3.5-5.2); Alkaline Phosphatase 73 IU/L (40-130); Anion Gap 15.3 (5-19); Aspartate Amino Transferase 13 U/L (0-40); Blood Urea Nitrogen 21 mg/dL (6-20); Calcium 8.9 mg/dL (8.5-10.5); Carbon Dioxide 20 mmol/L (22-29); Chloride 106 mmol/L (98-107); Creatine Phosphokinase 70 U/L (39-308); Globulin 2.3 g/dL (1.3-4.6); Glomerular Filtration Rate 43.4 mL/min (90-130); Glucose 95 mg/dL (65-115); Osmolality Calculated 287 mOsm/kg (285-295); Potassium 4.3 mmol/L (3.5-5.1); Sodium 137 mmol/L (136-145); Total Bilirubin 0.3 mg/dL (0.15-1.2); Total Protein 6.6 g/dL (6.6-8.7)
[2021-02-07 08:46] LABS: Basophils # 0.1 10^3/uL (0.0-0.1); Eosinophils # 0.3 10^3/uL (0.0-0.8); Eosinophils % 4.5 %; Hematocrit 47.8 % (42.0-52.0); Hemoglobin 15.2 g/dL (11.7-16.6); Lymphocytes # 2.4 10^3/uL (0.8-4.8); Lymphocytes % 34.6 %; Mean Corpuscular HGB Conc 31.8 g/dL (30.0-36.0); Mean Corpuscular Hemoglobin 29.2 pg (28.0-34.0); Mean Corpuscular Volume 91.7 fL (80-94); Mean Platelet Volume 10.2 fL (7.4-10.4); Monocytes # 0.6 10^3/uL (0.2-0.9); Monocytes % 8.8 %; Neutrophils # 3.51 10^3/uL (1.8-7.7); Nucleated Red Blood Cells % 0 %; Platelet Count 236 10^3/cmm (130-400); Red Blood Count 5.21 10^6/uL (4.1-5.3); Red Cell Distribution Width 14.5 % (12.1-15.1); White Blood Count 6.9 10^3/uL (4.0-10.0)
[2021-02-07 09:10] LABS: Alanine Aminotransferase 17 U/L (0-41); Albumin Level 4.5 g/dL (3.5-5.2); Alkaline Phosphatase 72 IU/L (40-130); Anion Gap 12.1 (5-19); Aspartate Amino Transferase 19 U/L (0-40); Blood Urea Nitrogen 19 mg/dL (6-20); Calcium 8.8 mg/dL (8.5-10.5); Carbon Dioxide 28 mmol/L (22-29); Chloride 103 mmol/L (98-107); Creatine Phosphokinase 241 U/L (39-308); Globulin 1.9 g/dL (1.3-4.6); Glomerular Filtration Rate 32.2 mL/min (90-130); Glucose 99 mg/dL (65-115); Osmolality Calculated 290 mOsm/kg (285-295); Potassium 4.1 mmol/L (3.5-5.1); Sodium 139 mmol/L (136-145); Total Bilirubin 0.5 mg/dL (0.15-1.2); Total Protein 6.4 g/dL (6.6-8.7)
[2021-02-07 09:12] LABS: Ammonia 30 umol/L (16-60)
== END 2021-02-23 23:59 | disposition home or self-care (01) ==
LOC: LAB 08:29
PROVIDERS: PCP Family Medicine; Visit Provider Family Medicine
DX: E74.04 McArdle disease (principal); E72.20 Disorder of urea cycle metabolism, unspecified; N17.0 Acute kidney failure with tubular necrosis; N18.31 Chronic kidney disease, stage 3a
CPT/HCPCS: 36415; 80053; 82140; 82550; 85025

== ENCOUNTER 2021-03-12 08:43 | Outpatient (RCR) | payer MEDICAID, SELFPAY ==
[2021-02-27 09:33] LABS: Basophils # 0.1 10^3/uL (0.0-0.1); Basophils % 1.2 %; Eosinophils # 0.3 10^3/uL (0.0-0.8); Eosinophils % 4.2 %; Hematocrit 50.7 % (42.0-52.0); Hemoglobin 16.3 g/dL (11.7-16.6); Lymphocytes % 31.2 %; Mean Corpuscular HGB Conc 32.1 g/dL (30.0-36.0); Mean Corpuscular Hemoglobin 28.8 pg (28.0-34.0); Mean Corpuscular Volume 89.7 fL (80-94); Mean Platelet Volume 10.3 fL (7.4-10.4); Monocytes # 0.5 10^3/uL (0.2-0.9); Monocytes % 7.4 %; Neutrophils # 3.62 10^3/uL (1.8-7.7); Neutrophils % 55.8 %; Nucleated Red Blood Cells % 0 %; Platelet Count 211 10^3/cmm (130-400); Red Blood Count 5.65 10^6/uL (4.1-5.3); Red Cell Distribution Width 14.6 % (12.1-15.1); White Blood Count 6.5 10^3/uL (4.0-10.0)
[2021-02-27 09:50] LABS: Alanine Aminotransferase 13 U/L (0-41); Albumin Level 4.5 g/dL (3.5-5.2); Alkaline Phosphatase 71 IU/L (40-130); Anion Gap 14.1 (5-19); Aspartate Amino Transferase 16 U/L (0-40); Blood Urea Nitrogen 19 mg/dL (6-20); Calcium 8.8 mg/dL (8.5-10.5); Carbon Dioxide 24 mmol/L (22-29); Chloride 105 mmol/L (98-107); Creatine Phosphokinase 134 U/L (39-308); Globulin 1.9 g/dL (1.3-4.6); Glucose 93 mg/dL (65-115); Osmolality Calculated 290 mOsm/kg (285-295); Potassium 4.1 mmol/L (3.5-5.1); Sodium 139 mmol/L (136-145); Total Bilirubin 0.4 mg/dL (0.15-1.2); Total Protein 6.4 g/dL (6.6-8.7)
[2021-02-27 09:51] LABS: Ammonia 20 umol/L (16-60)
[2021-03-06 10:29] LABS: Basophils # 0.1 10^3/uL (0.0-0.1); Basophils % 1.2 %; Eosinophils # 0.3 10^3/uL (0.0-0.8); Eosinophils % 4.9 %; Hematocrit 47.7 % (42.0-52.0); Hemoglobin 15.4 g/dL (11.7-16.6); Lymphocytes # 2.2 10^3/uL (0.8-4.8); Mean Corpuscular HGB Conc 32.3 g/dL (30.0-36.0); Mean Corpuscular Hemoglobin 28.9 pg (28.0-34.0); Mean Corpuscular Volume 89.5 fL (80-94); Mean Platelet Volume 10.2 fL (7.4-10.4); Monocytes # 0.5 10^3/uL (0.2-0.9); Monocytes % 6.9 %; Neutrophils # 3.44 10^3/uL (1.8-7.7); Neutrophils % 52.8 %; Nucleated Red Blood Cells % 0 %; Platelet Count 218 10^3/cmm (130-400); Red Blood Count 5.33 10^6/uL (4.1-5.3); Red Cell Distribution Width 14.6 % (12.1-15.1); White Blood Count 6.5 10^3/uL (4.0-10.0)
[2021-03-06 10:48] LABS: Ammonia 33 umol/L (16-60)
[2021-03-06 10:49] LABS: Alanine Aminotransferase 18 U/L (0-41); Albumin Level 4.6 g/dL (3.5-5.2); Alkaline Phosphatase 73 IU/L (40-130); Anion Gap 12.9 (5-19); Aspartate Amino Transferase 22 U/L (0-40); Blood Urea Nitrogen 20 mg/dL (6-20); Calcium 8.9 mg/dL (8.5-10.5); Carbon Dioxide 26 mmol/L (22-29); Chloride 100 mmol/L (98-107); Globulin 1.9 g/dL (1.3-4.6); Glomerular Filtration Rate 32.2 mL/min (90-130); Glucose 108 mg/dL (65-115); Osmolality Calculated 283 mOsm/kg (285-295); Potassium 3.9 mmol/L (3.5-5.1); Sodium 135 mmol/L (136-145); Total Bilirubin 0.4 mg/dL (0.15-1.2); Total Protein 6.5 g/dL (6.6-8.7)
[2021-03-06 11:06] LABS: Creatine Phosphokinase 342 U/L (39-308)
[2021-03-06 14:37] LABS: CKMB 7.1 ng/mL (0-10.4)
[2021-03-12 09:27] LABS: Basophils # 0.1 10^3/uL (0.0-0.1); Basophils % 0.6 %; Eosinophils # 0.4 10^3/uL (0.0-0.8); Eosinophils % 4.6 %; Hematocrit 48.8 % (42.0-52.0); Hemoglobin 15.7 g/dL (11.7-16.6); Lymphocytes # 1.1 10^3/uL (0.8-4.8); Lymphocytes % 13.9 %; Mean Corpuscular HGB Conc 32.2 g/dL (30.0-36.0); Mean Corpuscular Hemoglobin 28.8 pg (28.0-34.0); Mean Corpuscular Volume 89.5 fL (80-94); Mean Platelet Volume 10.8 fL (7.4-10.4); Monocytes # 0.8 10^3/uL (0.2-0.9); Monocytes % 9.8 %; Neutrophils # 5.51 10^3/uL (1.8-7.7); Neutrophils % 70.8 %; Nucleated Red Blood Cells % 0 %; Platelet Count 174 10^3/cmm (130-400); Red Blood Count 5.45 10^6/uL (4.1-5.3); Red Cell Distribution Width 14.6 % (12.1-15.1); White Blood Count 7.8 10^3/uL (4.0-10.0)
[2021-03-12 09:45] LABS: Ammonia 32 umol/L (16-60)
[2021-03-12 09:46] LABS: Alanine Aminotransferase 39 U/L (0-41); Albumin Level 4.6 g/dL (3.5-5.2); Alkaline Phosphatase 86 IU/L (40-130); Aspartate Amino Transferase 44 U/L (0-40); Blood Urea Nitrogen 20 mg/dL (6-20); Calcium 8.7 mg/dL (8.5-10.5); Carbon Dioxide 26 mmol/L (22-29); Chloride 100 mmol/L (98-107); Creatine Phosphokinase 223 U/L (39-308); Globulin 2.3 g/dL (1.3-4.6); Glomerular Filtration Rate 27.8 mL/min (90-130); Glucose 94 mg/dL (65-115); Osmolality Calculated 288 mOsm/kg (285-295); Sodium 138 mmol/L (136-145); Total Bilirubin 0.5 mg/dL (0.15-1.2); Total Protein 6.9 g/dL (6.6-8.7)
[2021-03-12 10:45] LABS: CKMB 3.4 ng/mL (0-10.4)
== END 2021-03-26 23:59 | disposition home or self-care (01) ==
LOC: LAB 08:43
PROVIDERS: PCP Family Medicine; Visit Provider Family Medicine
DX: E74.04 McArdle disease (principal); E72.20 Disorder of urea cycle metabolism, unspecified; N17.0 Acute kidney failure with tubular necrosis; N18.31 Chronic kidney disease, stage 3a; I10 Essential (primary) hypertension; I25.10 Atherosclerotic heart disease of native coronary artery without angina pectoris; Z79.899 Other long term (current) drug therapy
CPT/HCPCS: 36415; 80053; 82140; 82550; 82553; 85025

== ENCOUNTER → 2021-03-13 10:34 | Outpatient (BNVA) | payer MEDICAID, SELFPAY | PROVIDERS: PCP Family Medicine; Visit Provider Internal Medicine Cardiovascular Disease | DX: I25.10 Atherosclerotic heart disease of native coronary artery without angina pectoris (principal); I50.33 Acute on chronic diastolic (congestive) heart failure; R06.02 Shortness of breath | CPT/HCPCS: 85610; 87635 ==

== ENCOUNTER 2021-03-15 16:05 | Observation (INO) | payer MEDICAID, SELFPAY ==
[2021-03-15 16:19] VITALS: BMI 25.1
--- NOTE | 2021-03-15 19:08 | P.HP_ITS ---
Providers/Chief Complaint Admitting Physician: Shruthi Gonzales MD Primary Care Provider: Hina Zaragoza DO Chief Complaint: hydration History of Present Illness Julian Cristobal is a 45 year old male past medical history significant for history of ST elevation [place] with RCA stent in 2018, history of LAD stent in 2017 and chronic kidney disease stage III-IV with baseline creatinine ranges from 1.9 to 2.5 mg/dL was admitted before left heart cath for IV hydration in order to avoid contrast-induced nephropathy. For the past many months patient has been suffering from worsening of shortness of breath and chest pain stress test was also performed which did not show significant ischemia. His medicine was optimized and he was observed since he continues to do worse to the point that it was hindering his lifestyle therefore it was decided to proceed with left heart cath. Patient has been explained all risk benefit and already for the procedure patient has been explained the risk for contrast-induced nephropathy leading to transient or permanent dialysis, risk for urgent emergent surgery, major minor bleed, CVA, . Patient would like to proceed with it. Review of Systems Eyes: Denies: photophobia Medications/Allergies Home Medications Medication Instructions Recorded Confirmed Last Taken Type aspirin 81 mg tablet,delayed 81 mg PO DAILY 10/29/19 03/15/21 03/14/21 History release cholecalciferol (vitamin D3) 25 1,000 unit PO DAILY 10/29/19 03/15/21 03/14/21 History mcg (1,000 unit) capsule clopidogrel 75 mg tablet 75 mg PO DAILY 10/29/19 03/15/21 03/14/21 History famotidine 20 mg tablet 20 mg PO DAILY tab 10/29/19 03/15/21 03/14/21 History metoprolol succinate 25 mg 25 mg PO DAILY tab 10/29/19 03/15/21 03/14/21 History tablet,extended release 24 hr sodium bicarbonate 650 mg tablet See Rx Instructions .ROUTE 03/22/20 03/15/21 03/14/21 Rx .COMPLEX #90 tab topiramate 25 mg tablet 50 mg PO BEDTIME #60 tab 12/01/20 03/15/21 03/14/21 Rx trazodone 150 mg tablet 150 mg PO .HS #30 tab 12/01/20 03/15/21 03/14/21 Rx amlodipine 10 mg tablet 5 mg PO DAILY tab 12/25/20 03/15/21 03/14/21 History furosemide 20 mg tablet 20 mg PO QAM PRN #90 tab 03/08/21 03/15/21 03/14/21 Rx Allergies Allergy/AdvReac Type Severity Reaction Status Date / Time droperidol [From Inapsine] Allergy Severe Unknown Verified 02/19/21 08:52 zolpidem [From Ambien] Allergy Severe Amnesia Verified 02/19/21 08:52 tramadol [From Ultram] AdvReac Severe Severe Verified 02/19/21 08:52 anxiety tuberculin, purified protein AdvReac Intermediate ALGY-Rash Verified 02/19/21 08:52 deriva PFSH Acute PFSH: Medical History (Updated 03/15/21 @ 21:41 by Shruthi Gonzales MD) Acute depression Acute non-recurrent pansinusitis Acute on chronic renal insufficiency Anxiety Arteriosclerotic heart disease Chronic kidney disease, unspecified Chronic rhinitis CKD (chronic kidney disease) stage 3, GFR 30-59 ml/min Closed displaced fracture of distal phalanx of toe of left foot Common migraine without intractability Edema, unspecified Essential (primary) hypertension GERD (gastroesophageal reflux disease) Insomnia, unspecified 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 Bay disease Metabolic encephalopathy Obstructive sleep apnea Shortness of breath Tremor, unspecified Venous insufficiency (chronic) (peripheral) Vitamin D deficiency, unspecified Surgical History H/O angioplasty H/O arthroscopic knee surgery H/O heart surgery Hx of tonsillectomy S/P hemodialysis catheter insertion Family History Mother Hypertension Diabetes Social History Smoking and tobacco status: current every day smoker cigarettes Packs smoked per day: 0.5 Alcohol intake: never Household members: spouse Marital status: Current occupational status: unemployed History of recent travel: No Current gender identity: Male Vitals/I&O/Wt 03/15/21 03/15/21 03/15/21 06:59 14:59 22:59 Intake Total 240 / 240 Balance 240 / 240 Weight last 48 hrs Weight 190 lb 9 oz Physical Exam Narrative: EXAM NARRATIVE: GENERAL: Patient is alert, awake and oriented x3. NECK: No jugular vein distension. HEENT: No cyanosis. No icterus. No pallor. HEART: Regular S1 and S2. No murmur, rub or gallop. LUNGS: Clear to auscultate bilaterally. ABDOMEN: Soft, nontender and nondistended. Positive bowel sounds. No guarding, rebound or tenderness. CENTRAL NERVOUS SYSTEM: Grossly nonfocal. EXTREMITIES: Lower extremities without edema bilaterally. A&P Assessment and plan (1) Arteriosclerotic heart disease: Worsening of shortness of breath with chest pain in a patient with history of coronary artery disease and prior stents further warrant investigation with left heart cath. We will admit patient for IV hydration due to underlying kidney disease. Continue current regimen continue Plavix. Status: Acute (2) Essential (primary) hypertension: Well-controlled continue medicine Status: Acute (3) Shortness of breath: As above shortness of breath in a patient with history of coronary artery disease without lung involvement could be angina equivalent as above we will proceed with left heart cath Status: Acute (4) CKD (chronic kidney disease) stage 3, GFR 30-59 ml/min: Admitted for IV hydration continue IV fluid 100mL/h normal saline for next 12 hours. Check BMP in the morning Status: Acute Qualifiers: Chronic kidney disease stage 3 subtype: unspecified whether 3a or 3b Qualified Code(s): N18.30 - Chronic kidney disease, stage 3 unspecified (5) Diastolic CHF, acute on chronic: Appeared well compensated continue current regimen Status: Acute Attestations Medical Necessity Statement*: Patient is under observation for IV fluid for renal failure in order to avoid contrast-induced nephropathy Coding Level of Care Code New Pt Acute Fishing Rod Mechanic for Chg Fwd Patient Type New History Detailed Exam Detailed Medical Decision Making Moderate Complexity Diagnoses Arteriosclerotic heart disease I25.10 Essential (primary) hypertension I10 Shortness of breath R06.02 CKD (chronic kidney disease) stage 3, GFR 30-59 ml/min N18.30 Chronic kidney disease stage 3 subtype: unspecified whether 3a or 3b Diastolic CHF, acute on chronic I50.33
[2021-03-15 19:40] VITALS: BP 132/85; PULSE 56; RESP 16; TEMP 36.4; O2SAT 96
[2021-03-15] MEDS: sodium chloride 0.9% 1,000 ML 100 ML IV (22:07)
[2021-03-15] MEDS: trazodone 150 mg Tablet PO (22:08)
[2021-03-15] MEDS: topiramate 25 mg Tablet 50 MG PO (22:08)
[2021-03-15 23:40] VITALS: BP 116/69; PULSE 57; RESP 16; TEMP 36.4; O2SAT 94
[2021-03-16] VITALS (18 sets, daily range): BP systolic 118–158; BP diastolic 74–105; PULSE 52–70; RESP 8–22; TEMP 36.3–36.8; O2SAT 96–99
--- NOTE | 2021-03-16 06:14 | XACV_ITS ---
Exam Room: [facility] Ht: 185 cm Wt: 83 kg BSA: 2.08 m2 Gender: Male : 1975 Any Known Allergies: Other Exam Priority: Routine Procedure(s): Procedure Description: Diagnostic procedure Procedure Description: Coronary Angiography Diagnostic Findings * Left Main has no disease. * Left Anterior Descending has no disease. * Circumflex has no disease. * Proximal Right Coronary Artery to Mid Right Coronary Artery: total occlusion, ALEXA: 0 flow. * Third Obtuse Marginal Branch Segment to 3rd Posterior Descending Septal Food Inspector collaterallization. * Coronary angiography shows right dominance. Conclusions 1. Worsening of angina despite of optimization in a patient with negative stress test who has prior stents and continue to complaint regarding chest pain and shorness of breath. 2. There is total occlusion coronary artery disease with one vessel disease. Recommendations * Continue current medical management and risk factor modification. Diagnostic RX Recommendation: medical therapy and/or counseling Clinical Evaluation EBL: 5mL-10mL Procedural Details Pre-Procedure Time Out. Identified patient by full name and date of as verbalized by the patient/guarantor. Does the consent match the physician's order: Yes. Accurate & Complete Informed Consent: Yes. Inpatient/Outpatient History & Physical on Chart: Yes. If H&P is completed, is and addenduem needed: No; If yes, is the addendum complete: N/A. Visualize and Verify Site with Patient/Guarantor: N/A. Relevant Radiology Images available: N/A. Pre-op teaching completed and patient verbalized understanding. The risks, benefits, and alternatives of sedation and/or procedure were discussed by physician. The patient agrees to continue. Procedure started. Physician arrived. Equipment: 6F - Radial. Cardiac Cath Pack. ACIST Manifold Kit Model BT 2000. Heparinized Saline (2 units/mL), 1000 mL bag. [facility] Clinical Fraility Score: 3: Managing Well. Social Work Coordinator Indications: New Onset Angina. Chest Pain Symptom Assessment: Atypical Angina. Cardiovascular Instability: No. Correct patient, site and procedure confirmed by cath team. PERRLA. Strong, equal hand asset protection associate bilaterally. Lungs clear x 5 lobes. IV Site on Arrival: 22 gauge in the left forearm. IV Fluids: 0.9% NaCl at KVO. 300 mL infused prior to hoisting laborer. Oxygen started at 2liters/min via nasal canula. bilateral groins was prepped with chloroprep then draped in the usual sterile fashion. right radial was prepped with chloroprep then draped in the usual sterile fashion. Baseline sample Acquired. HR: 45 BPM. Physician scrubbed in. Immediate Pre-Procedure Time Out. Correct Patient: Yes; Correct Procedure: Yes; Correct Site: Yes; Correct Patient Position: Yes; Correct Supplies: Yes; Dried Flammable Prep: Yes; Blood Products Available: N/A;. Lidocaine 1% infiltrated to the right radial. Arterial access obtained. A 5 tajik TIG catheter in over wire. Catheter redirected to the RCA. Catheter removed over the exchange wire. Multiple views taken of left coronary artery. Multiple views taken of right coronary artery. Physician scrubbed out. A TR Band was successful obtaining hemostatsis at the Right Radial artery insertion site. TR band placed. Hemostasis obtained. Post Procedure: Pulses reassessed and unchanged. PERRLA. Strong, equal hand asset protection associate bilaterally. No VTE prophylaxis required. Medication's Wasted: Lidocaine 1% = 18 mL. Medication's Wasted: Nitro = 49.8 units. Medication's Wasted: Heparin = 1000 units. Medication's Wasted: Other = versed 2 mg. Total IV fluids: 50 mL. Contrast type used: Visipaque 320 mgI/mL, 500 mL bottle. Complications: none. Post-op diagnosis: chronically occluded RCA, patent LAD stent. Estimated blood loss: 5mL-10mL. Procedure completed. Patient transferred by wheelchair to 1st floor. Vital chart was stopped. Access Site Site: Right Radial artery Sheath Size: 6 Fr Hemostasis Method: TR Band Hemostasis Success: Successful Procedure Medications Start: 1:48 PM Stop: 1:48 PM Medication: Fentanyl Amount: 50 mcg Route: I.V. Start: 1:46 PM Stop: 1:46 PM Medication: Benadryl Amount: 50 mg Route: I.V. Start: 1:59 PM Stop: 1:59 PM Medication: Nitrogylcerin Amount: 200 mcg Route: I.A. Start: 1:59 PM Stop: 1:59 PM Medication: Fentanyl Amount: 50 mcg Route: I.V. Start: 2:00 PM Stop: 2:00 PM Medication: Heparin Amount: 5000 units Route: I.V. I, the attending physician, have reviewed and verified all procedure medications. Yes, all medications given per verbal order History/Risk Factors Hypertension: Yes Dyslipidemia: No Peripheral Arterial Disease (PAD): No Myocardial Infarction ([place]): Yes Obesity: No Renal Disease: No Prior Interventions PCI: Yes CABG: No Valve Surgery: No Report Signatures Finalized by Shruthi Gonzales MD on 03/31/2021 03:07 PM
[2021-03-16 08:33] LABS: Anion Gap 12.7 (5-19); Blood Urea Nitrogen 18 mg/dL (6-20); Calcium 8.7 mg/dL (8.5-10.5); Carbon Dioxide 25 mmol/L (22-29); Chloride 105 mmol/L (98-107); Glomerular Filtration Rate 43.4 mL/min (90-130); Glucose 89 mg/dL (65-115); Osmolality Calculated 289 mOsm/kg (285-295); Potassium 3.7 mmol/L (3.5-5.1); Sodium 139 mmol/L (136-145)
[2021-03-16] MEDS: sodium chloride 0.9% 1,000 ML 100 ML IV ×2 (09:06→14:30)
--- NOTE | 2021-03-16 12:20 | PC.CHAP ---
Pastoral Care Encounter/Spiritual Assessment Type of Contact [] Declined middle school resource teacher visit [] Patient/Family/Request visit [] Outpatient visit [] Follow-up visit [] Physician referral [] Code/Alert [] Routine visit [] Staff referral [] Actively dying [xxx] Patient sleeping [] Family support [] [] Out of room [] Palliative care [] [] Receiving care in room [] Pre-surgical visit [] Trauma [] Long length of stay [] ICU visit [] Other: Relational/Emotional Strength [] Patient feels connected with others/family/visitors/staff [] Distress [] Loneliness/isolation [] Abandonment Spirituality of Patient [] Person of Mounika [] Attends Voodoo of their Mounika [] Believes in Prayer [] Reads Bible or Caodaism materials [] There are Spiritual issues to be addressed Sharepoint Designer Developer Interventions [] Prayer [] Active listening [] Non-anxious presence [] Spiritual/emotional support [] Crisis/trauma care [] Spiritual counseling [] Bereavement support [] Provided bereavement packet [] Provided Bible/devotional materials [] Provided toy/stuffed animal, coloring book to patient or family member [] Provided Communion [] Anointing/[place] [] Salvation [] Completed spiritual assessment [] Other: Impact on Illness or Injury [] Angry [] Fearful [] Anxious [] Often cries [] Exhaustion [] Unable to work [] Unable to attend episcopalian [] Unable to walk/stand [] Unable to read [] Unable to drive [] Unable to eat/drink [] Unable to sleep [] Unable to be with family [] Patient intubated [] Other: Summary Time spent with patient
--- NOTE | 2021-03-16 13:48 | W.PM.OPSUD ---
Surgery/Procedure H&P Update DATE OF PROCEDURE: March 16, 2021 DATE H&P PERFORMED: 03/15/21 H&P UPDATE INFORMATION: I have reviewed H&P completed within last 30 days, I have examined patient prior to procedure and No changes to prior documentation PREOP DIAGNOSIS: Chest pain suspicious for angina history of coronary artery disease PATIENT REASSESSED PRIOR TO SEDATION, WITH NO CHANGE NOTED: Yes PHYSICAL EXAM: alert, oriented x 3 and clear to auscultation bilaterally AIRWAY EVAL/ANESTHESIA PLAN: ASA II, Risks, benefits & alternatives of sedation and/or procedure discussed and Patient agrees to continue as planned
--- NOTE | 2021-03-16 17:35 | PC.RESP ---
Smoking Cessation information sent to patient.
--- NOTE | 2021-03-16 19:30 | PC.NURSE ---
Discharge to home Post angiogram home care instructions discuss to pt. informed pt on continued home meds. Discuss on monitoring pt's bp and hydration. Discharge packet provided.
--- NOTE | 2021-03-16 19:34 | PM.DCS ---
Discharge Providers Date of Admission: 03/15/21 16:05 Date of Discharge: March 16, 2021 Attending Provider at Admission: Shruthi Gonzales MD Attending Provider at Discharge: Shruthi Gonzales MD Primary Care Provider: Hina Zaragoza DO Diagnoses at Discharge Discharge Diagnosis (1) Arteriosclerotic heart disease: Status: Acute (2) Essential (primary) hypertension: Status: Acute (3) Shortness of breath: Status: Acute (4) CKD (chronic kidney disease) stage 3, GFR 30-59 ml/min: Status: Acute Qualifiers: Chronic kidney disease stage 3 subtype: unspecified whether 3a or 3b Qualified Code(s): N18.30 - Chronic kidney disease, stage 3 unspecified (5) Diastolic CHF, acute on chronic: Status: Acute Reason for Visit Reason for Visit: hydration Hospital Course Hospital Course 45-year-old male past medical history significant for questionable compliance hypertension hyperlipidemia chronic kidney disease coronary artery disease history of acute coronary syndrome status post stent to RCA and LAD underwent left heart cath this morning for worsening of chest pain shortness of breath. He was noted to have no significant stenosis in LAD circumflex or left main. RCA was chronically occluded but received collaterals from left side to the PDA. Since it is chronically occluded long segment and because of the fact it remains collateralized we decided to treat him medically. Currently he is doing fine from cardiovascular perspective denies any complaint post cath. He has been given IV fluid. Creatinine remains at 1.7 which is better than his baseline. We will see him back in our clinic in 7 days with Ms. Juanita Urrutia our cardiology nurse practitioner for assessment of angina and shortness of breath if it remains symptomatic we may will add ranolazine to the regimen. We will also check BMP to assess kidney function in 7 days. Patient can be discharged home now. Physical Exam Narrative: EXAM NARRATIVE: GENERAL: Patient is alert, awake and oriented x3. NECK: No jugular vein distension. HEENT: No cyanosis. No icterus. No pallor. HEART: Regular S1 and S2. No murmur, rub or gallop. LUNGS: Clear to auscultate bilaterally. ABDOMEN: Soft, nontender and nondistended. Positive bowel sounds. No guarding, rebound or tenderness. CENTRAL NERVOUS SYSTEM: Grossly nonfocal. EXTREMITIES: Lower extremities without edema bilaterally. Const: COMMON NORMALS: alert Resp: COMMON NORMALS: clear to auscultation bilaterally AUSCULTATION: clear to auscultation bilaterally Neuro: SENSORIUM/ORIENTATION: Yes alert Discharge Data Data Completed and Pending: Pending at discharge Category Date Time Status ELECTRICAL HARDWARE ENGINEER request for service Routin e Exams 03/16/21 06:14 Taken Labs from last 24 hours 03/16/21 07:19 Sodium 139 Potassium 3.7 Chloride 105 Carbon Dioxide 25 Anion Gap 12.7 BUN 18 Creatinine 1.7 H GFR Calculation 43.4 L Glucose 89 Calculated Osmolal ity 289 Calcium 8.7 Vitals: Last Vital Signs Temp 98.2 F 03/16/21 11:25 Pulse 63 03/16/21 18:37 Resp 13 03/16/21 18:37 BP 158/105 03/16/21 17:30 Pulse Ox 99 03/16/21 11:25 Discharge Plan Discharge Patient Disposition: Home Condition: Stable Prescriptions: Continued clopidogrel 75 mg tablet 75 mg PO DAILY RF: 0 metoprolol succinate 25 mg tablet extended release 24 hr 25 mg PO DAILY RF: 0 aspirin [Adult Aspirin Regimen] 81 mg tablet,delayed release (DR/EC) 81 mg PO DAILY RF: 0 famotidine [Pepcid] 20 mg tablet 20 mg PO DAILY RF: 0 cholecalciferol (vitamin D3) 1,000 unit capsule 1,000 unit PO DAILY RF: 0 amlodipine [Norvasc] 10 mg tablet 5 mg PO DAILY RF: 0 sodium bicarbonate 650 mg tablet See Rx Instructions .ROUTE .COMPLEX Qty: 90 RF: 0 topiramate 25 mg tablet 50 mg PO BEDTIME Qty: 60 RF: 2 trazodone 150 mg tablet 150 mg PO .HS Qty: 30 RF: 2 furosemide [Lasix] 20 mg tablet 20 mg PO QAM PRN (Reason: Edema) Qty: 90 RF: 3 Discharge Orders: Discharge Order (Routine); Ordered 03/16/21 Ordered By: Shruthi Gonzales Referrals: Shruthi Gonzales MD [Physician] - 6 Weeks ([facility] WILL CALL YOU TO SET UP THIS APPOINTMNET. IF YOU DO NOT HEAR FROM THEM BY FRIDAY PLEASE CALL [phone].) Juanita Urrutia FNP [Nurse Practitioner] - 7-10 days ([facility] WILL CALL YOU TO SET UP THIS APPOINTMNET. IF YOU DO NOT HEAR FROM THEM BY FRIDAY PLEASE CALL [phone].) Discharge Diet: Cardiac Discharge Activity: Increase activity as tolerated Patient Instructions: Chronic Kidney Disease (DC), CHF Stoplight, Opioid Safety, Post Angiogram Home Care Instructions Activity Restrictions/Additional Instructions: Keep a record of your blood pressure at home twice a day. If any worsening of symptoms to call the doctor right away or come to ER [facility]. Follow-up with Juanita Urrutia in 7 days follow-up with Juanita Urrutia in 7 days, follow-up with Dr. Gonzales in 6 to 8 weeks Discharge Attestations Time Spent in Discharge Care*: less than 30 min Specific Discharge Activities: educating patient Quality Metrics Clinical Quality Measures During this hospital stay, did patient experience: None Coding Level of Care Code Established Pt Acute Chg FW DC note Patient Type Established History Detailed Exam Detailed Medical Decision Making Moderate Complexity Diagnoses Arteriosclerotic heart disease I25.10 Essential (primary) hypertension I10 Shortness of breath R06.02 CKD (chronic kidney disease) stage 3, GFR 30-59 ml/min N18.30 Chronic kidney disease stage 3 subtype: unspecified whether 3a or 3b Diastolic CHF, acute on chronic I50.33
== END 2021-03-16 19:36 | disposition home or self-care (01) ==
LOC: MEDSURG 03-16 12:09 → CSU 03-16 18:23 → MEDSURG 03-17 06:03
PROVIDERS: Admitting Provider Internal Medicine Cardiovascular Disease; PCP Family Medicine; Visit Provider Internal Medicine Cardiovascular Disease
DX: I25.10 Atherosclerotic heart disease of native coronary artery without angina pectoris (principal); I10 Essential (primary) hypertension; R06.02 Shortness of breath; N18.30 Chronic kidney disease, stage 3 unspecified; I50.33 Acute on chronic diastolic (congestive) heart failure; I11.0 Hypertensive heart disease with heart failure; I25.2 Old myocardial infarction; Z95.5 Presence of coronary angioplasty implant and graft; Z79.82 Long term (current) use of aspirin; F41.9 Anxiety disorder, unspecified; K21.9 Gastro-esophageal reflux disease without esophagitis; E55.9 Vitamin D deficiency, unspecified; G47.33 Obstructive sleep apnea (adult) (pediatric); Z82.49 Family history of ischemic heart disease and other diseases of the circulatory system; Z83.3 Family history of diabetes mellitus; F17.210 Nicotine dependence, cigarettes, uncomplicated
CPT/HCPCS: 36415; 80048; 93454; C1769; C1887; C1894; G0378; G0379; J1200; J1644; J2250; J3010; J3490; J7030; Q9967

== ENCOUNTER → 2021-03-23 11:48 | Outpatient (BNVA) | payer MEDICAID, SELFPAY | PROVIDERS: PCP Family Medicine; Visit Provider Nurse Practitioner Family | DX: I25.10 Atherosclerotic heart disease of native coronary artery without angina pectoris (principal) | CPT/HCPCS: 80048 ==

== ENCOUNTER → 2021-04-06 06:59 | Day surgery (SDC) | payer MEDICAID, SELFPAY ==
[2021-04-06] MEDS: sodium chloride 0.9% 1,000 ML 250 ML IV (07:40)
[2021-04-06 07:51] VITALS: BP 90/59; PULSE 60; RESP 18; TEMP 36.4; O2SAT 96; BMI 23.5
== END ==
PROVIDERS: PCP Family Medicine; Visit Provider Family Medicine
DX: N17.0 Acute kidney failure with tubular necrosis (principal); N18.31 Chronic kidney disease, stage 3a; E74.04 McArdle disease; M62.82 Rhabdomyolysis
CPT/HCPCS: 96360; 96361; J7030

== ENCOUNTER 2021-04-20 09:33 | Outpatient (RCR) | payer MEDICAID, SELFPAY ==
[2021-04-05 09:07] LABS: Basophils % 0.5 %; Eosinophils # 0.2 10^3/uL (0.0-0.8); Eosinophils % 3.1 %; Hematocrit 45.4 % (42.0-52.0); Hemoglobin 14.8 g/dL (11.7-16.6); Lymphocytes # 1.9 10^3/uL (0.8-4.8); Lymphocytes % 25.1 %; Mean Corpuscular HGB Conc 32.6 g/dL (30.0-36.0); Mean Corpuscular Hemoglobin 29.3 pg (28.0-34.0); Mean Corpuscular Volume 89.9 fL (80-94); Mean Platelet Volume 10.6 fL (7.4-10.4); Monocytes # 0.6 10^3/uL (0.2-0.9); Neutrophils # 4.64 10^3/uL (1.8-7.7); Neutrophils % 63.2 %; Nucleated Red Blood Cells % 0 %; Platelet Count 213 10^3/cmm (130-400); Red Blood Count 5.05 10^6/uL (4.1-5.3); Red Cell Distribution Width 14.6 % (12.1-15.1); White Blood Count 7.4 10^3/uL (4.0-10.0)
[2021-04-05 09:21] LABS: Alanine Aminotransferase 22 U/L (0-41); Albumin Level 4.6 g/dL (3.5-5.2); Alkaline Phosphatase 69 IU/L (40-130); Ammonia 24 umol/L (16-60); Anion Gap 18.5 (5-19); Aspartate Amino Transferase 37 U/L (0-40); Blood Urea Nitrogen 21 mg/dL (6-20); Calcium 8.3 mg/dL (8.5-10.5); Carbon Dioxide 22 mmol/L (22-29); Chloride 98 mmol/L (98-107); Globulin 1.3 g/dL (1.3-4.6); Glucose 112 mg/dL (65-115); Osmolality Calculated 284 mOsm/kg (285-295); Potassium 3.5 mmol/L (3.5-5.1); Sodium 135 mmol/L (136-145); Total Bilirubin 0.4 mg/dL (0.15-1.2); Total Protein 5.9 g/dL (6.6-8.7)
[2021-04-05 10:14] LABS: Creatine Phosphokinase 1006 U/L (39-308)
[2021-04-09 09:02] LABS: Basophils # 0.1 10^3/uL (0.0-0.1); Basophils % 0.8 %; Eosinophils # 0.4 10^3/uL (0.0-0.8); Eosinophils % 5.9 %; Hematocrit 43.2 % (42.0-52.0); Hemoglobin 13.9 g/dL (11.7-16.6); Lymphocytes # 1.7 10^3/uL (0.8-4.8); Lymphocytes % 26.3 %; Mean Corpuscular HGB Conc 32.2 g/dL (30.0-36.0); Mean Corpuscular Hemoglobin 29.3 pg (28.0-34.0); Mean Corpuscular Volume 90.9 fL (80-94); Mean Platelet Volume 10.5 fL (7.4-10.4); Monocytes # 0.5 10^3/uL (0.2-0.9); Monocytes % 8.1 %; Neutrophils # 3.77 10^3/uL (1.8-7.7); Neutrophils % 58.7 %; Nucleated Red Blood Cells % 0 %; Platelet Count 182 10^3/cmm (130-400); Red Blood Count 4.75 10^6/uL (4.1-5.3); Red Cell Distribution Width 14.6 % (12.1-15.1); White Blood Count 6.4 10^3/uL (4.0-10.0)
[2021-04-09 09:15] LABS: Ammonia 28 umol/L (16-60)
[2021-04-09 09:19] LABS: Alanine Aminotransferase 19 U/L (0-41); Albumin Level 4.1 g/dL (3.5-5.2); Alkaline Phosphatase 71 IU/L (40-130); Anion Gap 13.2 (5-19); Aspartate Amino Transferase 22 U/L (0-40); Blood Urea Nitrogen 16 mg/dL (6-20); Calcium 8.5 mg/dL (8.5-10.5); Carbon Dioxide 28 mmol/L (22-29); Chloride 102 mmol/L (98-107); Globulin 1.9 g/dL (1.3-4.6); Glomerular Filtration Rate 30.6 mL/min (90-130); Glucose 98 mg/dL (65-115); Osmolality Calculated 289 mOsm/kg (285-295); Potassium 4.2 mmol/L (3.5-5.1); Sodium 139 mmol/L (136-145); Total Bilirubin 0.3 mg/dL (0.15-1.2)
[2021-04-09 09:33] LABS: Creatine Phosphokinase 347 U/L (39-308)
[2021-04-20 09:52] LABS: Basophils # 0.1 10^3/uL (0.0-0.1); Basophils % 0.9 %; Eosinophils # 0.2 10^3/uL (0.0-0.8); Hematocrit 51.8 % (42.0-52.0); Hemoglobin 16.5 g/dL (11.7-16.6); Lymphocytes # 1.9 10^3/uL (0.8-4.8); Lymphocytes % 27.3 %; Mean Corpuscular HGB Conc 31.9 g/dL (30.0-36.0); Mean Corpuscular Hemoglobin 28.9 pg (28.0-34.0); Mean Corpuscular Volume 90.7 fL (80-94); Monocytes # 0.5 10^3/uL (0.2-0.9); Monocytes % 7.3 %; Neutrophils # 4.32 10^3/uL (1.8-7.7); Neutrophils % 61.4 %; Nucleated Red Blood Cells % 0 %; Platelet Count 194 10^3/cmm (130-400); Red Blood Count 5.71 10^6/uL (4.1-5.3); Red Cell Distribution Width 14.3 % (12.1-15.1)
[2021-04-20 10:08] LABS: Alanine Aminotransferase 18 U/L (0-41); Albumin Level 4.7 g/dL (3.5-5.2); Alkaline Phosphatase 71 IU/L (40-130); Ammonia 15 umol/L (16-60); Anion Gap 16.6 (5-19); Aspartate Amino Transferase 19 U/L (0-40); Blood Urea Nitrogen 26 mg/dL (6-20); Calcium 9.7 mg/dL (8.5-10.5); Carbon Dioxide 24 mmol/L (22-29); Chloride 105 mmol/L (98-107); Creatine Phosphokinase 133 U/L (39-308); Globulin 1.9 g/dL (1.3-4.6); Glucose 92 mg/dL (65-115); Osmolality Calculated 296 mOsm/kg (285-295); Potassium 4.6 mmol/L (3.5-5.1); Sodium 141 mmol/L (136-145); Total Bilirubin 0.3 mg/dL (0.15-1.2); Total Protein 6.6 g/dL (6.6-8.7)
== END 2021-04-25 23:59 | disposition home or self-care (01) ==
LOC: LAB 09:33
PROVIDERS: PCP Family Medicine; Visit Provider Family Medicine
DX: N17.0 Acute kidney failure with tubular necrosis (principal); N18.31 Chronic kidney disease, stage 3a; E74.04 McArdle disease; E72.20 Disorder of urea cycle metabolism, unspecified; Z79.899 Other long term (current) drug therapy
CPT/HCPCS: 36415; 80053; 82140; 82550; 85025

== ENCOUNTER 2021-05-07 08:44 | Outpatient (RCR) | payer MEDICAID, SELFPAY ==
[2021-04-27 08:46] LABS: Basophils # 0.1 10^3/uL (0.0-0.1); Basophils % 0.8 %; Eosinophils # 0.3 10^3/uL (0.0-0.8); Eosinophils % 4.1 %; Hematocrit 45.4 % (42.0-52.0); Hemoglobin 14.9 g/dL (11.7-16.6); Lymphocytes # 1.8 10^3/uL (0.8-4.8); Lymphocytes % 26.8 %; Mean Corpuscular HGB Conc 32.8 g/dL (30.0-36.0); Mean Corpuscular Hemoglobin 29.5 pg (28.0-34.0); Mean Corpuscular Volume 89.9 fL (80-94); Mean Platelet Volume 10.1 fL (7.4-10.4); Monocytes # 0.6 10^3/uL (0.2-0.9); Monocytes % 9.2 %; Neutrophils # 3.92 10^3/uL (1.8-7.7); Neutrophils % 58.9 %; Nucleated Red Blood Cells % 0 %; Platelet Count 226 10^3/cmm (130-400); Red Blood Count 5.05 10^6/uL (4.1-5.3); Red Cell Distribution Width 14.1 % (12.1-15.1); White Blood Count 6.6 10^3/uL (4.0-10.0)
[2021-04-27 08:55] LABS: Alanine Aminotransferase 15 U/L (0-41); Albumin Level 4.3 g/dL (3.5-5.2); Alkaline Phosphatase 70 IU/L (40-130); Anion Gap 10.7 (5-19); Aspartate Amino Transferase 19 U/L (0-40); Blood Urea Nitrogen 20 mg/dL (6-20); Calcium 8.8 mg/dL (8.5-10.5); Carbon Dioxide 29 mmol/L (22-29); Chloride 103 mmol/L (98-107); Creatine Phosphokinase 207 U/L (39-308); Globulin 1.7 g/dL (1.3-4.6); Glomerular Filtration Rate 30.6 mL/min (90-130); Glucose 75 mg/dL (65-115); Osmolality Calculated 289 mOsm/kg (285-295); Potassium 3.7 mmol/L (3.5-5.1); Sodium 139 mmol/L (136-145); Total Bilirubin 0.3 mg/dL (0.15-1.2)
[2021-04-27 08:56] LABS: Ammonia 24 umol/L (16-60)
[2021-05-07 09:09] LABS: Basophils % 0.6 %; Eosinophils # 0.4 10^3/uL (0.0-0.8); Eosinophils % 5.7 %; Hematocrit 43.5 % (42.0-52.0); Hemoglobin 13.7 g/dL (11.7-16.6); Lymphocytes # 1.5 10^3/uL (0.8-4.8); Lymphocytes % 22.4 %; Mean Corpuscular HGB Conc 31.5 g/dL (30.0-36.0); Mean Corpuscular Hemoglobin 29.1 pg (28.0-34.0); Mean Corpuscular Volume 92.6 fL (80-94); Mean Platelet Volume 10.1 fL (7.4-10.4); Monocytes # 0.6 10^3/uL (0.2-0.9); Monocytes % 8.3 %; Neutrophils # 4.17 10^3/uL (1.8-7.7); Neutrophils % 62.7 %; Nucleated Red Blood Cells % 0 %; Platelet Count 217 10^3/cmm (130-400); Red Cell Distribution Width 13.9 % (12.1-15.1); White Blood Count 6.7 10^3/uL (4.0-10.0)
[2021-05-07 09:24] LABS: Ammonia 22 umol/L (16-60)
[2021-05-07 09:25] LABS: Alanine Aminotransferase 16 U/L (0-41); Albumin Level 4.2 g/dL (3.5-5.2); Alkaline Phosphatase 74 IU/L (40-130); Anion Gap 12.1 (5-19); Aspartate Amino Transferase 21 U/L (0-40); Blood Urea Nitrogen 21 mg/dL (6-20); Calcium 8.6 mg/dL (8.5-10.5); Carbon Dioxide 28 mmol/L (22-29); Chloride 104 mmol/L (98-107); Creatine Phosphokinase 251 U/L (39-308); Globulin 1.7 g/dL (1.3-4.6); Glomerular Filtration Rate 29.2 mL/min (90-130); Glucose 93 mg/dL (65-115); Osmolality Calculated 293 mOsm/kg (285-295); Potassium 4.1 mmol/L (3.5-5.1); Sodium 140 mmol/L (136-145); Total Bilirubin 0.3 mg/dL (0.15-1.2); Total Protein 5.9 g/dL (6.6-8.7)
== END 2021-05-26 23:59 | disposition home or self-care (01) ==
LOC: LAB 08:44
PROVIDERS: PCP Family Medicine; Visit Provider Family Medicine
DX: E74.04 McArdle disease (principal); N17.0 Acute kidney failure with tubular necrosis; N18.31 Chronic kidney disease, stage 3a; E72.20 Disorder of urea cycle metabolism, unspecified
CPT/HCPCS: 36415; 80053; 82140; 82550; 85025

== ENCOUNTER 2021-05-14 11:29 | Outpatient (CLI) | payer MEDICAID, SELFPAY ==
[2021-05-14 12:05] LABS: Basophils # 0.1 10^3/uL (0.0-0.1); Basophils % 0.7 %; Eosinophils # 0.2 10^3/uL (0.0-0.8); Eosinophils % 2.2 %; Hematocrit 46.6 % (42.0-52.0); Hemoglobin 14.8 g/dL (11.7-16.6); Lymphocytes # 2.2 10^3/uL (0.8-4.8); Lymphocytes % 29.1 %; Mean Corpuscular HGB Conc 31.8 g/dL (30.0-36.0); Mean Corpuscular Hemoglobin 28.8 pg (28.0-34.0); Mean Corpuscular Volume 90.7 fL (80-94); Mean Platelet Volume 10.4 fL (7.4-10.4); Monocytes # 0.5 10^3/uL (0.2-0.9); Neutrophils # 4.68 10^3/uL (1.8-7.7); Neutrophils % 61.9 %; Nucleated Red Blood Cells % 0 %; Platelet Count 212 10^3/cmm (130-400); Red Blood Count 5.14 10^6/uL (4.1-5.3); Red Cell Distribution Width 13.6 % (12.1-15.1); White Blood Count 7.6 10^3/uL (4.0-10.0)
[2021-05-14 12:26] LABS: Ammonia 19 umol/L (16-60)
[2021-05-14 12:37] LABS: Alanine Aminotransferase 17 U/L (0-41); Albumin Level 4.5 g/dL (3.5-5.2); Alkaline Phosphatase 74 IU/L (40-130); Anion Gap 14.8 (5-19); Aspartate Amino Transferase 18 U/L (0-40); Blood Urea Nitrogen 23 mg/dL (6-20); Calcium 9.4 mg/dL (8.5-10.5); Carbon Dioxide 25 mmol/L (22-29); Chloride 103 mmol/L (98-107); Creatine Phosphokinase 121 U/L (39-308); Glomerular Filtration Rate 38.2 mL/min (90-130); Glucose 115 mg/dL (65-115); Osmolality Calculated 291 mOsm/kg (285-295); Potassium 4.8 mmol/L (3.5-5.1); Sodium 138 mmol/L (136-145); Total Bilirubin 0.2 mg/dL (0.15-1.2); Total Protein 6.5 g/dL (6.6-8.7)
== END 2021-05-14 11:30 | disposition home or self-care (01) ==
LOC: LAB 11:39
PROVIDERS: PCP Family Medicine; Visit Provider Family Medicine
DX: E72.20 Disorder of urea cycle metabolism, unspecified (principal)
CPT/HCPCS: 36415; 80053; 82140; 82550; 85025

== ENCOUNTER 2021-06-25 09:23 | Outpatient (RCR) | payer MEDICAID, SELFPAY ==
[2021-06-04 09:44] LABS: Basophils % 0.6 %; Eosinophils # 0.2 10^3/uL (0.0-0.8); Eosinophils % 3.2 %; Hematocrit 39.7 % (42.0-52.0); Hemoglobin 12.5 g/dL (11.7-16.6); Lymphocytes # 1.5 10^3/uL (0.8-4.8); Lymphocytes % 23.3 %; Mean Corpuscular HGB Conc 31.5 g/dL (30.0-36.0); Mean Corpuscular Volume 92.1 fL (80-94); Mean Platelet Volume 9.9 fL (7.4-10.4); Monocytes # 0.6 10^3/uL (0.2-0.9); Monocytes % 9.4 %; Neutrophils # 4.18 10^3/uL (1.8-7.7); Neutrophils % 63.3 %; Nucleated Red Blood Cells % 0 %; Platelet Count 216 10^3/cmm (130-400); Red Blood Count 4.31 10^6/uL (4.1-5.3); Red Cell Distribution Width 13.7 % (12.1-15.1); White Blood Count 6.6 10^3/uL (4.0-10.0)
[2021-06-04 10:05] LABS: Ammonia 26 umol/L (16-60)
[2021-06-04 10:22] LABS: Alanine Aminotransferase 14 U/L (0-41); Albumin Level 4.1 g/dL (3.5-5.2); Alkaline Phosphatase 61 IU/L (40-130); Anion Gap 12.3 (5-19); Aspartate Amino Transferase 20 U/L (0-40); Blood Urea Nitrogen 16 mg/dL (6-20); Calcium 8.4 mg/dL (8.5-10.5); Carbon Dioxide 25 mmol/L (22-29); Chloride 106 mmol/L (98-107); Creatine Phosphokinase 254 U/L (39-308); Globulin 1.5 g/dL (1.3-4.6); Glomerular Filtration Rate 32.1 mL/min (90-130); Glucose 86 mg/dL (65-115); Osmolality Calculated 288 mOsm/kg (285-295); Potassium 4.3 mmol/L (3.5-5.1); Sodium 139 mmol/L (136-145); Total Bilirubin 0.2 mg/dL (0.15-1.2); Total Protein 5.6 g/dL (6.6-8.7)
[2021-06-18 10:18] LABS: Basophils # 0.1 10^3/uL (0.0-0.1); Basophils % 0.9 %; Eosinophils # 0.5 10^3/uL (0.0-0.8); Eosinophils % 7.1 %; Hematocrit 46.2 % (42.0-52.0); Hemoglobin 14.4 g/dL (11.7-16.6); Lymphocytes # 1.8 10^3/uL (0.8-4.8); Lymphocytes % 24.7 %; Mean Corpuscular HGB Conc 31.2 g/dL (30.0-36.0); Mean Corpuscular Hemoglobin 28.2 pg (28.0-34.0); Mean Corpuscular Volume 90.6 fl (80-94); Mean Platelet Volume 10.3 fL (7.4-10.4); Monocytes # 0.6 10^3/uL (0.2-0.9); Monocytes % 7.7 %; Neutrophils # 4.41 10^3/uL (1.8-7.7); Neutrophils % 59.3 %; Nucleated Red Blood Cells % 0 %; Platelet Count 249 10^3/cmm (130-400); Red Cell Distribution Width 13.7 % (12.1-15.1); White Blood Count 7.4 10^3/uL (4.0-10.0)
[2021-06-18 10:29] LABS: Ammonia 17 umol/L (16-60); Creatine Phosphokinase 297 U/L (39-308)
[2021-06-18 11:14] LABS: CKMB 6.1 ng/mL (0-10.4)
[2021-06-18 12:16] LABS: Alanine Aminotransferase 16 U/L (0-41); Albumin Level 4.5 g/dL (3.5-5.2); Alkaline Phosphatase 74 IU/L (40-130); Anion Gap 16.6 (5-19); Aspartate Amino Transferase 23 U/L (0-40); Blood Urea Nitrogen 23 mg/dL (6-20); Carbon Dioxide 25 mmol/L (22-29); Chloride 105 mmol/L (98-107); Glomerular Filtration Rate 40.5 mL/min (90-130); Glucose 100 mg/dL (65-115); Osmolality Calculated 298 mOsm/kg (285-295); Potassium 4.6 mmol/L (3.5-5.1); Sodium 142 mmol/L (136-145); Total Bilirubin 0.3 mg/dL (0.15-1.2); Total Protein 6.5 g/dL (6.6-8.7)
[2021-06-25 09:45] LABS: Basophils # 0.1 10^3/uL (0.0-0.1); Basophils % 0.6 %; Eosinophils # 0.3 10^3/uL (0.0-0.8); Eosinophils % 3.8 %; Hematocrit 47.3 % (42.0-52.0); Hemoglobin 14.7 g/dL (11.7-16.6); Lymphocytes # 1.9 10^3/uL (0.8-4.8); Lymphocytes % 24.6 %; Mean Corpuscular HGB Conc 31.1 g/dL (30.0-36.0); Mean Corpuscular Hemoglobin 28.1 pg (28.0-34.0); Mean Corpuscular Volume 90.3 fl (80-94); Mean Platelet Volume 10.1 fL (7.4-10.4); Monocytes # 0.5 10^3/uL (0.2-0.9); Neutrophils # 5.04 10^3/uL (1.8-7.7); Neutrophils % 64.7 %; Nucleated Red Blood Cells % 0 %; Platelet Count 249 10^3/cmm (130-400); Red Blood Count 5.24 10^6/uL (4.1-5.3); Red Cell Distribution Width 13.8 % (12.1-15.1); White Blood Count 7.8 10^3/uL (4.0-10.0)
[2021-06-25 10:07] LABS: Ammonia 19 umol/L (16-60)
[2021-06-25 10:13] LABS: Alanine Aminotransferase 33 U/L (0-41); Albumin Level 4.4 g/dL (3.5-5.2); Alkaline Phosphatase 76 IU/L (40-130); Anion Gap 13.6 (5-19); Aspartate Amino Transferase 30 U/L (0-40); Blood Urea Nitrogen 16 mg/dL (6-20); Calcium 9.6 mg/dL (8.5-10.5); Carbon Dioxide 26 mmol/L (22-29); Chloride 101 mmol/L (98-107); Creatine Phosphokinase 100 U/L (39-308); Globulin 2.5 g/dL (1.3-4.6); Glomerular Filtration Rate 40.5 mL/min (90-130); Glucose 100 mg/dL (65-115); Lipase 20 U/L (13-60); Osmolality Calculated 283 mOsm/kg (285-295); Potassium 4.6 mmol/L (3.5-5.1); Sodium 136 mmol/L (136-145); Testosterone Total 721.8 ng/dL (249-836); Thyroid Stimulating Hormone 0.62 uIU/mL (0.27-4.20); Total Bilirubin 0.4 mg/dL (0.15-1.2); Total Protein 6.9 g/dL (6.6-8.7)
== END 2021-06-26 23:59 | disposition home or self-care (01) ==
LOC: LAB 09:23
PROVIDERS: PCP Family Medicine; Visit Provider Family Medicine
DX: E74.04 McArdle disease (principal); E72.20 Disorder of urea cycle metabolism, unspecified; N17.0 Acute kidney failure with tubular necrosis; N18.31 Chronic kidney disease, stage 3a
CPT/HCPCS: 36415; 80053; 82140; 82550; 82553; 83690; 84403; 84443; 85025

== ENCOUNTER 2021-07-17 09:41 | Outpatient (RCR) | payer MEDICAID, SELFPAY ==
[2021-07-05 09:07] LABS: Basophils % 0.4 %; Eosinophils # 0.3 10^3/uL (0.0-0.8); Eosinophils % 3.7 %; Hematocrit 47.7 % (42.0-52.0); Hemoglobin 14.9 g/dL (11.7-16.6); Lymphocytes # 1.6 10^3/uL (0.8-4.8); Lymphocytes % 23.2 %; Mean Corpuscular HGB Conc 31.2 g/dL (30.0-36.0); Mean Corpuscular Volume 89.7 fl (80-94); Mean Platelet Volume 10.5 fL (7.4-10.4); Monocytes # 0.5 10^3/uL (0.2-0.9); Neutrophils # 4.47 10^3/uL (1.8-7.7); Neutrophils % 65.6 %; Nucleated Red Blood Cells % 0 %; Platelet Count 224 10^3/cmm (130-400); Red Blood Count 5.32 10^6/uL (4.1-5.3); White Blood Count 6.8 10^3/uL (4.0-10.0)
[2021-07-05 09:24] LABS: Alanine Aminotransferase 20 U/L (0-41); Albumin Level 4.3 g/dL (3.5-5.2); Alkaline Phosphatase 79 IU/L (40-130); Ammonia 20 umol/L (16-60); Anion Gap 12.2 (5-19); Aspartate Amino Transferase 24 U/L (0-40); Blood Urea Nitrogen 15 mg/dL (6-20); Calcium 9.5 mg/dL (8.5-10.5); Carbon Dioxide 26 mmol/L (22-29); Chloride 103 mmol/L (98-107); Creatine Phosphokinase 306 U/L (39-308); Globulin 2.5 g/dL (1.3-4.6); Glomerular Filtration Rate 40.5 mL/min (90-130); Glucose 94 mg/dL (65-115); Osmolality Calculated 285 mOsm/kg (285-295); Potassium 4.2 mmol/L (3.5-5.1); Sodium 137 mmol/L (136-145); Total Bilirubin 0.2 mg/dL (0.15-1.2); Total Protein 6.8 g/dL (6.6-8.7)
[2021-07-17 10:03] LABS: Basophils # 0.1 10^3/uL (0.0-0.1); Basophils % 0.8 %; Eosinophils # 0.2 10^3/uL (0.0-0.8); Eosinophils % 3.5 %; Hemoglobin 14.4 g/dL (11.7-16.6); Lymphocytes # 1.9 10^3/uL (0.8-4.8); Lymphocytes % 29.4 %; Mean Corpuscular HGB Conc 31.3 g/dL (30.0-36.0); Mean Corpuscular Volume 89.3 fl (80-94); Mean Platelet Volume 9.8 fL (7.4-10.4); Monocytes # 0.5 10^3/uL (0.2-0.9); Monocytes % 8.6 %; Neutrophils # 3.61 10^3/uL (1.8-7.7); Neutrophils % 57.4 %; Nucleated Red Blood Cells % 0 %; Platelet Count 194 10^3/cmm (130-400); Red Blood Count 5.15 10^6/uL (4.1-5.3); Red Cell Distribution Width 13.8 % (12.1-15.1); White Blood Count 6.3 10^3/uL (4.0-10.0)
[2021-07-17 10:32] LABS: Ammonia 15 umol/L (16-60)
[2021-07-17 10:33] LABS: Alanine Aminotransferase 15 U/L (0-41); Albumin Level 4.5 g/dL (3.5-5.2); Alkaline Phosphatase 68 IU/L (40-130); Anion Gap 11.4 (5-19); Aspartate Amino Transferase 19 U/L (0-40); Blood Urea Nitrogen 19 mg/dL (6-20); Calcium 9.5 mg/dL (8.5-10.5); Carbon Dioxide 27 mmol/L (22-29); Chloride 104 mmol/L (98-107); Creatine Phosphokinase 137 U/L (39-308); Globulin 1.9 g/dL (1.3-4.6); Glomerular Filtration Rate 40.5 mL/min (90-130); Glucose 86 mg/dL (65-115); Osmolality Calculated 288 mOsm/kg (285-295); Phosphorus 2.6 mg/dL (2.5-4.5); Potassium 4.4 mmol/L (3.5-5.1); Sodium 138 mmol/L (136-145); Total Bilirubin 0.4 mg/dL (0.15-1.2); Total Protein 6.4 g/dL (6.6-8.7)
[2021-07-17 10:34] LABS: Calcium 9.6 mg/dL (8.5-10.5)
[2021-07-17 10:42] LABS: Parathyroid Hormone 26.7 pg/mL (15-65)
== END 2021-07-26 23:59 | disposition home or self-care (01) ==
LOC: LAB 09:41
PROVIDERS: PCP Family Medicine; Referring Provider Internal Medicine Nephrology; Visit Provider Family Medicine
DX: E74.04 McArdle disease (principal); E72.20 Disorder of urea cycle metabolism, unspecified; N17.0 Acute kidney failure with tubular necrosis; N18.31 Chronic kidney disease, stage 3a
CPT/HCPCS: 36415; 80053; 80069; 82140; 82310; 82550; 83970; 85025

== ENCOUNTER → 2021-08-02 08:49 | Day surgery (SDC) | payer MEDICARE, MEDICAID, SELFPAY ==
[2021-08-02 09:00] VITALS: BP 108/54; PULSE 73; RESP 18; TEMP 36.3; O2SAT 97; BMI 22.4
[2021-08-02] MEDS: sodium chloride 0.9% 1,000 ML 600 ML IV (09:18)
== END ==
PROVIDERS: PCP Family Medicine; Visit Provider Family Medicine
DX: E74.04 McArdle disease (principal); N18.31 Chronic kidney disease, stage 3a; M62.82 Rhabdomyolysis
CPT/HCPCS: 96360; 96361; J7030

== ENCOUNTER 2021-08-22 08:44 | Outpatient (RCR) | payer MEDICARE, MEDICAID, SELFPAY ==
[2021-07-30 10:17] LABS: Hemoglobin 14.5 g/dL (11.7-16.6); Mean Corpuscular HGB Conc 31.5 g/dL (30.0-36.0); Mean Corpuscular Hemoglobin 27.7 pg (28.0-34.0); Mean Corpuscular Volume 87.8 fl (80-94); Mean Platelet Volume 10.8 fL (7.4-10.4); Platelet Count 236 10^3/cmm (130-400); Red Blood Count 5.24 10^6/uL (4.1-5.3); Red Cell Distribution Width 14.7 % (12.1-15.1)
[2021-07-30 10:37] LABS: Ammonia 18 umol/L (16-60)
[2021-07-30 10:43] LABS: Absolute Eosinophils 0.1 10^3/cmm (0.0-0.7); Absolute Segmented Neutrophil 4.1 10/cmm (1.6-7.1); Band Neutrophils Absolute 0.1 10^3/cmm (0.0-1.2); Eosinophils 2 %; Lymphocytes 29 %; Monocytes Absolute 0.6 10^3/cmm (0.1-0.6); Segmented Neutrophils 58 %; Total Cells Counted 100 (0-100)
[2021-07-30 10:44] LABS: Absolute Neutrophil 4.2 10^3/cmm (1.4-6.5); Alanine Aminotransferase 21 U/L (0-41); Albumin Level 4.4 g/dL (3.5-5.2); Alkaline Phosphatase 63 IU/L (40-130); Anion Gap 13.2 (5-19); Aspartate Amino Transferase 31 U/L (0-40); Blood Urea Nitrogen 21 mg/dL (6-20); Carbon Dioxide 24 mmol/L (22-29); Chloride 107 mmol/L (98-107); Globulin 2.1 g/dL (1.3-4.6); Glomerular Filtration Rate 40.5 mL/min (90-130); Glucose 89 mg/dL (65-115); Osmolality Calculated 292 mOsm/kg (285-295); Platelet Estimate Normal (Normal); Potassium 4.2 mmol/L (3.5-5.1); Sodium 140 mmol/L (136-145); Total Bilirubin 0.3 mg/dL (0.15-1.2); Total Protein 6.5 g/dL (6.6-8.7)
[2021-07-30 11:08] LABS: Creatine Phosphokinase 710 U/L (39-308)
[2021-07-30 11:24] LABS: CKMB 7.6 ng/mL (0-10.4)
[2021-08-16 10:32] LABS: Basophils # 0.1 10^3/uL (0.0-0.1); Basophils % 0.8 %; Eosinophils # 0.3 10^3/uL (0.0-0.8); Hematocrit 47.9 % (42.0-52.0); Hemoglobin 14.9 g/dL (11.7-16.6); Lymphocytes % 30.1 %; Mean Corpuscular HGB Conc 31.1 g/dL (30.0-36.0); Mean Corpuscular Volume 86.9 fl (80-94); Mean Platelet Volume 10.5 fL (7.4-10.4); Monocytes # 0.5 10^3/uL (0.2-0.9); Monocytes % 7.8 %; Neutrophils # 3.76 10^3/uL (1.8-7.7); Neutrophils % 57.1 %; Nucleated Red Blood Cells % 0 %; Platelet Count 229 10^3/cmm (130-400); Red Blood Count 5.51 10^6/uL (4.1-5.3); Red Cell Distribution Width 14.7 % (12.1-15.1); White Blood Count 6.6 10^3/uL (4.0-10.0)
[2021-08-16 10:56] LABS: Ammonia 18 umol/L (16-60)
[2021-08-16 11:14] LABS: Alanine Aminotransferase 15 U/L (0-41); Albumin Level 4.5 g/dL (3.5-5.2); Alkaline Phosphatase 68 IU/L (40-130); Anion Gap 12.3 (5-19); Aspartate Amino Transferase 21 U/L (0-40); Blood Urea Nitrogen 19 mg/dL (6-20); Calcium 9.3 mg/dL (8.5-10.5); Carbon Dioxide 26 mmol/L (22-29); Chloride 103 mmol/L (98-107); Glomerular Filtration Rate 40.5 mL/min (90-130); Glucose 92 mg/dL (65-115); Osmolality Calculated 286 mOsm/kg (285-295); Potassium 4.3 mmol/L (3.5-5.1); Sodium 137 mmol/L (136-145); Total Bilirubin 0.2 mg/dL (0.15-1.2); Total Protein 6.5 g/dL (6.6-8.7)
[2021-08-16 11:52] LABS: Creatine Phosphokinase 363 U/L (39-308)
[2021-08-22 09:11] LABS: Basophils # 0.1 10^3/uL (0.0-0.1); Basophils % 0.8 %; Eosinophils # 0.2 10^3/uL (0.0-0.8); Eosinophils % 3.2 %; Hematocrit 44.3 % (42.0-52.0); Hemoglobin 13.9 g/dL (11.7-16.6); Lymphocytes # 1.5 10^3/uL (0.8-4.8); Lymphocytes % 22.7 %; Mean Corpuscular HGB Conc 31.4 g/dL (30.0-36.0); Mean Corpuscular Hemoglobin 27.5 pg (28.0-34.0); Mean Corpuscular Volume 87.5 fl (80-94); Mean Platelet Volume 10.7 fL (7.4-10.4); Monocytes # 0.6 10^3/uL (0.2-0.9); Monocytes % 9.3 %; Neutrophils % 63.8 %; Nucleated Red Blood Cells % 0 %; Platelet Count 205 10^3/cmm (130-400); Red Blood Count 5.06 10^6/uL (4.1-5.3); Red Cell Distribution Width 15.3 % (12.1-15.1); White Blood Count 6.6 10^3/uL (4.0-10.0)
[2021-08-22 09:37] LABS: Alanine Aminotransferase 20 U/L (0-41); Albumin Level 4.2 g/dL (3.5-5.2); Alkaline Phosphatase 61 IU/L (40-130); Anion Gap 14.8 (5-19); Aspartate Amino Transferase 23 U/L (0-40); Blood Urea Nitrogen 19 mg/dL (6-20); Calcium 9.3 mg/dL (8.5-10.5); Carbon Dioxide 25 mmol/L (22-29); Chloride 105 mmol/L (98-107); Creatine Phosphokinase 214 U/L (39-308); Globulin 2.2 g/dL (1.3-4.6); Glomerular Filtration Rate 35.8 mL/min (90-130); Glucose 88 mg/dL (65-115); Osmolality Calculated 294 mOsm/kg (285-295); Potassium 3.8 mmol/L (3.5-5.1); Sodium 141 mmol/L (136-145); Total Bilirubin 0.3 mg/dL (0.15-1.2); Total Protein 6.4 g/dL (6.6-8.7)
[2021-08-22 09:42] LABS: Ammonia 35 umol/L (16-60)
== END 2021-08-26 23:59 | disposition home or self-care (01) ==
LOC: LAB 08:44
PROVIDERS: PCP Family Medicine; Visit Provider Family Medicine
DX: E74.04 McArdle disease (principal); E72.20 Disorder of urea cycle metabolism, unspecified; N17.0 Acute kidney failure with tubular necrosis; N18.31 Chronic kidney disease, stage 3a; Z79.899 Other long term (current) drug therapy
CPT/HCPCS: 36415; 80053; 82140; 82550; 82553; 85007; 85025; 85027

== ENCOUNTER 2021-09-19 08:47 | Outpatient (RCR) | payer MEDICARE, MEDICAID, SELFPAY ==
[2021-08-29 14:05] LABS: Basophils # 0.1 10^3/uL (0.0-0.1); Basophils % 0.7 %; Eosinophils # 0.2 10^3/uL (0.0-0.8); Hematocrit 47.2 % (42.0-52.0); Lymphocytes # 1.6 10^3/uL (0.8-4.8); Lymphocytes % 23.4 %; Mean Corpuscular HGB Conc 31.8 g/dL (30.0-36.0); Mean Corpuscular Hemoglobin 27.5 pg (28.0-34.0); Mean Corpuscular Volume 86.4 fl (80-94); Mean Platelet Volume 10.9 fL (7.4-10.4); Monocytes # 0.6 10^3/uL (0.2-0.9); Monocytes % 8.4 %; Neutrophils # 4.28 10^3/uL (1.8-7.7); Neutrophils % 64.2 %; Nucleated Red Blood Cells % 0 %; Platelet Count 257 10^3/cmm (130-400); Red Blood Count 5.46 10^6/uL (4.1-5.3); Red Cell Distribution Width 15.2 % (12.1-15.1); White Blood Count 6.7 10^3/uL (4.0-10.0)
[2021-08-29 14:25] LABS: Alanine Aminotransferase 24 U/L (0-41); Albumin Level 4.6 g/dL (3.5-5.2); Alkaline Phosphatase 71 IU/L (40-130); Ammonia 28 umol/L (16-60); Aspartate Amino Transferase 23 U/L (0-40); Blood Urea Nitrogen 20 mg/dL (6-20); Calcium 9.3 mg/dL (8.5-10.5); Carbon Dioxide 26 mmol/L (22-29); Chloride 105 mmol/L (98-107); Creatine Phosphokinase 144 U/L (39-308); Globulin 1.9 g/dL (1.3-4.6); Glomerular Filtration Rate 46.4 mL/min (90-130); Glucose 87 mg/dL (65-115); Osmolality Calculated 292 mOsm/kg (285-295); Sodium 140 mmol/L (136-145); Total Bilirubin 0.2 mg/dL (0.15-1.2); Total Protein 6.5 g/dL (6.6-8.7)
[2021-08-30 15:04] LABS: NT Pro B Type Natriuretic Pept 162 pg/mL (0-125)
[2021-09-05 10:48] LABS: Ammonia 28 umol/L (16-60)
[2021-09-05 11:09] LABS: Alanine Aminotransferase 25 U/L (0-41); Albumin Level 4.5 g/dL (3.5-5.2); Alkaline Phosphatase 67 IU/L (40-130); Anion Gap 17.4 (5-19); Aspartate Amino Transferase 45 U/L (0-40); Blood Urea Nitrogen 23 mg/dL (6-20); Calcium 9.2 mg/dL (8.5-10.5); Carbon Dioxide 20 mmol/L (22-29); Chloride 101 mmol/L (98-107); Globulin 2.1 g/dL (1.3-4.6); Glomerular Filtration Rate 35.8 mL/min (90-130); Glucose 91 mg/dL (65-115); NT Pro B Type Natriuretic Pept 489 pg/mL (0-125); Osmolality Calculated 281 mOsm/kg (285-295); Potassium 4.4 mmol/L (3.5-5.1); Sodium 134 mmol/L (136-145); Total Bilirubin 0.3 mg/dL (0.15-1.2); Total Protein 6.6 g/dL (6.6-8.7)
[2021-09-05 11:20] LABS: Creatine Phosphokinase 1266 U/L (39-308)
[2021-09-05 12:17] LABS: CKMB 16.7 ng/mL (0-10.4); CKMB Relative Index 1.3 % (0.0-5.3)
[2021-09-06 21:14] LABS: Basophils # 0.1 10^3/uL (0.0-0.1); Eosinophils # 0.3 10^3/uL (0.0-0.8); Eosinophils % 4.4 %; Hematocrit 46.9 % (42.0-52.0); Hemoglobin 14.9 g/dL (11.7-16.6); Lymphocytes # 1.8 10^3/uL (0.8-4.8); Lymphocytes % 25.9 %; Mean Corpuscular HGB Conc 31.8 g/dL (30.0-36.0); Mean Corpuscular Hemoglobin 27.1 pg (28.0-34.0); Mean Corpuscular Volume 85.4 fl (80-94); Mean Platelet Volume 11.5 fL (7.4-10.4); Monocytes # 0.6 10^3/uL (0.2-0.9); Monocytes % 8.5 %; Neutrophils # 4.25 10^3/uL (1.8-7.7); Neutrophils % 60.1 %; Nucleated Red Blood Cells % 0 %; Platelet Count 204 10^3/cmm (130-400); Red Blood Count 5.49 10^6/uL (4.1-5.3); White Blood Count 7.1 10^3/uL (4.0-10.0)
[2021-09-10 09:15] LABS: Basophils # 0.1 10^3/uL (0.0-0.1); Basophils % 0.7 %; Eosinophils # 0.2 10^3/uL (0.0-0.8); Eosinophils % 1.9 %; Hematocrit 51.8 % (42.0-52.0); Hemoglobin 16.1 g/dL (11.7-16.6); Lymphocytes # 1.9 10^3/uL (0.8-4.8); Lymphocytes % 20.9 %; Mean Corpuscular HGB Conc 31.1 g/dL (30.0-36.0); Mean Corpuscular Hemoglobin 26.8 pg (28.0-34.0); Mean Corpuscular Volume 86.2 fl (80-94); Mean Platelet Volume 11.2 fL (7.4-10.4); Monocytes # 0.6 10^3/uL (0.2-0.9); Monocytes % 6.5 %; Neutrophils # 6.27 10^3/uL (1.8-7.7); Neutrophils % 69.8 %; Nucleated Red Blood Cells % 0 %; Platelet Count 219 10^3/cmm (130-400); Red Blood Count 6.01 10^6/uL (4.1-5.3); Red Cell Distribution Width 15.8 % (12.1-15.1)
[2021-09-10 09:32] LABS: Ammonia 19 umol/L (16-60)
[2021-09-10 10:02] LABS: Alanine Aminotransferase 33 U/L (0-41); Albumin Level 4.6 g/dL (3.5-5.2); Alkaline Phosphatase 67 IU/L (40-130); Anion Gap 13.9 (5-19); Aspartate Amino Transferase 33 U/L (0-40); Blood Urea Nitrogen 16 mg/dL (6-20); Calcium 9.5 mg/dL (8.5-10.5); Carbon Dioxide 26 mmol/L (22-29); Chloride 104 mmol/L (98-107); Globulin 2.1 g/dL (1.3-4.6); Glomerular Filtration Rate 46.4 mL/min (90-130); Glucose 89 mg/dL (65-115); NT Pro B Type Natriuretic Pept 138 pg/mL (0-125); Osmolality Calculated 289 mOsm/kg (285-295); Potassium 4.9 mmol/L (3.5-5.1); Sodium 139 mmol/L (136-145); Total Bilirubin 0.3 mg/dL (0.15-1.2); Total Protein 6.7 g/dL (6.6-8.7)
[2021-09-10 11:48] LABS: Creatine Phosphokinase 462 U/L (39-308)
[2021-09-10 13:58] LABS: CKMB 6.6 ng/mL (0-10.4); CKMB Relative Index 1.4 % (0.0-5.3)
[2021-09-19 09:22] LABS: Basophils % 0.6 %; Eosinophils # 0.2 10^3/uL (0.0-0.8); Eosinophils % 2.9 %; Hematocrit 45.3 % (42.0-52.0); Hemoglobin 14.5 g/dL (11.7-16.6); Lymphocytes # 1.8 10^3/uL (0.8-4.8); Lymphocytes % 26.3 %; Mean Corpuscular Hemoglobin 27.2 pg (28.0-34.0); Mean Corpuscular Volume 84.8 fl (80-94); Mean Platelet Volume 10.1 fL (7.4-10.4); Monocytes # 0.5 10^3/uL (0.2-0.9); Monocytes % 7.2 %; Neutrophils # 4.34 10^3/uL (1.8-7.7); Neutrophils % 62.7 %; Nucleated Red Blood Cells % 0 %; Platelet Count 248 10^3/cmm (130-400); Red Blood Count 5.34 10^6/uL (4.1-5.3); Red Cell Distribution Width 15.7 % (12.1-15.1); White Blood Count 6.9 10^3/uL (4.0-10.0)
[2021-09-19 09:57] LABS: Alanine Aminotransferase 25 U/L (0-41); Albumin Level 4.4 g/dL (3.5-5.2); Alkaline Phosphatase 63 IU/L (40-130); Anion Gap 15.1 (5-19); Aspartate Amino Transferase 23 U/L (0-40); Blood Urea Nitrogen 18 mg/dL (6-20); Calcium 8.9 mg/dL (8.5-10.5); Carbon Dioxide 23 mmol/L (22-29); Chloride 105 mmol/L (98-107); Creatine Phosphokinase 111 U/L (39-308); Globulin 1.9 g/dL (1.3-4.6); Glomerular Filtration Rate 40.5 mL/min (90-130); Glucose 90 mg/dL (65-115); NT Pro B Type Natriuretic Pept 101 pg/mL (0-125); Osmolality Calculated 289 mOsm/kg (285-295); Potassium 4.1 mmol/L (3.5-5.1); Sodium 139 mmol/L (136-145); Total Bilirubin 0.2 mg/dL (0.15-1.2); Total Protein 6.3 g/dL (6.6-8.7)
[2021-09-19 10:13] LABS: Ammonia 29 umol/L (16-60)
== END 2021-09-25 23:59 | disposition home or self-care (01) ==
LOC: LAB 08:47
PROVIDERS: PCP Family Medicine; Visit Provider Family Medicine
DX: N17.0 Acute kidney failure with tubular necrosis (principal); E72.20 Disorder of urea cycle metabolism, unspecified; E74.04 McArdle disease; N18.31 Chronic kidney disease, stage 3a; R11.10 Vomiting, unspecified; I10 Essential (primary) hypertension; E29.1 Testicular hypofunction; M62.82 Rhabdomyolysis
CPT/HCPCS: 36415; 80053; 82140; 82550; 82553; 83880; 85025

== ENCOUNTER 2021-10-05 09:51 | Outpatient (RCR) | payer MEDICARE, MEDICAID, SELFPAY ==
[2021-10-01 08:52] LABS: Basophils # 0.1 10^3/uL (0.0-0.1); Basophils % 0.8 %; Eosinophils # 0.3 10^3/uL (0.0-0.8); Eosinophils % 3.8 %; Hematocrit 46.8 % (42.0-52.0); Hemoglobin 14.6 g/dL (11.7-16.6); Lymphocytes # 1.9 10^3/uL (0.8-4.8); Lymphocytes % 25.8 %; Mean Corpuscular HGB Conc 31.2 g/dL (30.0-36.0); Mean Corpuscular Hemoglobin 26.4 pg (28.0-34.0); Mean Corpuscular Volume 84.8 fl (80-94); Mean Platelet Volume 10.8 fL (7.4-10.4); Monocytes # 0.6 10^3/uL (0.2-0.9); Monocytes % 8.3 %; Nucleated Red Blood Cells % 0 %; Platelet Count 209 10^3/cmm (130-400); Red Blood Count 5.52 10^6/uL (4.1-5.3); Red Cell Distribution Width 15.2 % (12.1-15.1); White Blood Count 7.4 10^3/uL (4.0-10.0)
[2021-10-01 09:10] LABS: Alanine Aminotransferase 25 U/L (0-41); Albumin Level 4.6 g/dL (3.5-5.2); Alkaline Phosphatase 66 IU/L (40-130); Anion Gap 18.3 (5-19); Aspartate Amino Transferase 38 U/L (0-40); Blood Urea Nitrogen 31 mg/dL (6-20); Calcium 8.6 mg/dL (8.5-10.5); Carbon Dioxide 24 mmol/L (22-29); Chloride 101 mmol/L (98-107); Globulin 1.9 g/dL (1.3-4.6); Glomerular Filtration Rate 32.1 mL/min (90-130); Glucose 99 mg/dL (65-115); Osmolality Calculated 295 mOsm/kg (285-295); Potassium 4.3 mmol/L (3.5-5.1); Sodium 139 mmol/L (136-145); Total Bilirubin 0.3 mg/dL (0.15-1.2); Total Protein 6.5 g/dL (6.6-8.7)
[2021-10-01 09:11] LABS: Ammonia 19 umol/L (16-60)
[2021-10-01 13:25] LABS: Creatine Phosphokinase 869 U/L (39-308)
[2021-10-04 10:10] VITALS: BP 123/71; PULSE 66; RESP 18; TEMP 36.4; O2SAT 96; BMI 22.4
[2021-10-04] MEDS: sodium chloride 0.9% 1,000 ML 250 ML IV (10:30)
[2021-10-05 09:54] VITALS: BP 120/80; PULSE 78; RESP 18; TEMP 36.6; O2SAT 98
[2021-10-05] MEDS: sodium chloride 0.9% 1,000 ML 250 ML IV (10:11)
== END 2021-10-26 23:59 | disposition home or self-care (01) ==
LOC: GILAB 09:51
PROVIDERS: PCP Family Medicine; Visit Provider Family Medicine
DX: E74.04 McArdle disease (principal); E72.20 Disorder of urea cycle metabolism, unspecified
CPT/HCPCS: 80053; 82140; 82550; 85025; 96360; 96361; J7030

== ENCOUNTER 2021-10-22 08:01 | Outpatient (RCR) | payer MEDICARE, MEDICAID, SELFPAY ==
[2021-10-08 09:13] LABS: Mean Corpuscular HGB Conc 31.9 g/dL (30.0-36.0); Mean Corpuscular Hemoglobin 26.9 pg (28.0-34.0); Mean Corpuscular Volume 84.4 fl (80-94); Mean Platelet Volume 10.5 fL (7.4-10.4); Platelet Count 205 10^3/cmm (130-400); Red Blood Count 5.57 10^6/uL (4.1-5.3); Red Cell Distribution Width 16.3 % (12.1-15.1); White Blood Count 6.8 10^3/uL (4.0-10.0)
[2021-10-08 09:32] LABS: Ammonia 28 umol/L (16-60)
[2021-10-08 09:40] LABS: Absolute Eosinophils 0.2 10^3/cmm (0.0-0.7); Absolute Segmented Neutrophil 4.1 10/cmm (1.6-7.1); Eosinophils 4 %; Lymphocytes 32 %; Lymphocytes Absolute 2.2 10^3/cmm (1.2-3.4); Monocytes Absolute 0.2 10^3/cmm (0.1-0.6); Segmented Neutrophils 61 %; Total Cells Counted 100 (0-100)
[2021-10-08 09:41] LABS: Absolute Neutrophil 4.1 10^3/cmm (1.4-6.5); Platelet Estimate Normal (Normal)
[2021-10-08 09:53] LABS: Alanine Aminotransferase 19 U/L (0-41); Albumin Level 4.3 g/dL (3.5-5.2); Alkaline Phosphatase 56 IU/L (40-130); Anion Gap 17.5 (5-19); Aspartate Amino Transferase 19 U/L (0-40); Blood Urea Nitrogen 11 mg/dL (6-20); Calcium 8.7 mg/dL (8.5-10.5); Carbon Dioxide 22 mmol/L (22-29); Chloride 104 mmol/L (98-107); Creatine Phosphokinase 204 U/L (39-308); Globulin 1.9 g/dL (1.3-4.6); Glomerular Filtration Rate 43.2 mL/min (90-130); Glucose 133 mg/dL (65-115); NT Pro B Type Natriuretic Pept 578 pg/mL (0-125); Osmolality Calculated 291 mOsm/kg (285-295); Potassium 3.5 mmol/L (3.5-5.1); Sodium 140 mmol/L (136-145); Total Bilirubin 0.2 mg/dL (0.15-1.2); Total Protein 6.2 g/dL (6.6-8.7)
[2021-10-22 09:00] LABS: Basophils # 0.1 10^3/uL (0.0-0.1); Basophils % 0.9 %; Eosinophils # 0.3 10^3/uL (0.0-0.8); Eosinophils % 3.6 %; Hematocrit 49.9 % (42.0-52.0); Hemoglobin 15.8 g/dL (11.7-16.6); Lymphocytes # 2.2 10^3/uL (0.8-4.8); Lymphocytes % 29.6 %; Mean Corpuscular HGB Conc 31.7 g/dL (30.0-36.0); Mean Corpuscular Hemoglobin 26.6 pg (28.0-34.0); Mean Platelet Volume 10.3 fL (7.4-10.4); Monocytes # 0.6 10^3/uL (0.2-0.9); Monocytes % 7.8 %; Neutrophils # 4.27 10^3/uL (1.8-7.7); Neutrophils % 57.8 %; Nucleated Red Blood Cells % 0 %; Platelet Count 240 10^3/cmm (130-400); Red Blood Count 5.94 10^6/uL (4.1-5.3); Red Cell Distribution Width 15.9 % (12.1-15.1); White Blood Count 7.4 10^3/uL (4.0-10.0)
[2021-10-22 09:13] LABS: Ammonia 22 umol/L (16-60)
[2021-10-22 09:23] LABS: Alanine Aminotransferase 23 U/L (0-41); Albumin Level 4.5 g/dL (3.5-5.2); Alkaline Phosphatase 73 IU/L (40-130); Anion Gap 14.4 (5-19); Aspartate Amino Transferase 24 U/L (0-40); Blood Urea Nitrogen 23 mg/dL (6-20); Calcium 8.9 mg/dL (8.5-10.5); Carbon Dioxide 23 mmol/L (22-29); Chloride 106 mmol/L (98-107); Creatine Phosphokinase 297 U/L (39-308); Globulin 2.2 g/dL (1.3-4.6); Glomerular Filtration Rate 35.8 mL/min (90-130); Glucose 101 mg/dL (65-115); NT Pro B Type Natriuretic Pept 74 pg/mL (0-125); Osmolality Calculated 292 mOsm/kg (285-295); Potassium 4.4 mmol/L (3.5-5.1); Sodium 139 mmol/L (136-145); Total Bilirubin 0.3 mg/dL (0.15-1.2); Total Protein 6.7 g/dL (6.6-8.7)
== END 2021-10-26 23:59 | disposition home or self-care (01) ==
LOC: LAB 08:01
PROVIDERS: PCP Family Medicine; Visit Provider Family Medicine
DX: M62.82 Rhabdomyolysis (principal); I10 Essential (primary) hypertension
CPT/HCPCS: 36415; 80053; 82140; 82550; 83880; 85007; 85025; 85027

== ENCOUNTER → 2021-11-06 08:58 | Outpatient (BNVA) | payer MEDICARE, MEDICAID, SELFPAY | PROVIDERS: PCP Family Medicine; Visit Provider Nurse Practitioner Family | DX: Z20.822 Contact with and (suspected) exposure to COVID-19 (principal) | CPT/HCPCS: 87635 ==

== ENCOUNTER 2021-11-26 08:15 | Outpatient (RCR) | payer MEDICARE, MEDICAID, SELFPAY ==
[2021-10-29 08:57] LABS: Basophils % 0.3 %; Eosinophils # 0.1 10^3/uL (0.0-0.8); Hematocrit 46.4 % (42.0-52.0); Hemoglobin 14.9 g/dL (11.7-16.6); Lymphocytes # 2.1 10^3/uL (0.8-4.8); Lymphocytes % 16.9 %; Mean Corpuscular HGB Conc 32.1 g/dL (30.0-36.0); Mean Corpuscular Hemoglobin 26.9 pg (28.0-34.0); Mean Corpuscular Volume 83.9 fl (80-94); Mean Platelet Volume 10.8 fL (7.4-10.4); Monocytes # 0.9 10^3/uL (0.2-0.9); Monocytes % 7.3 %; Neutrophils # 9.25 10^3/uL (1.8-7.7); Nucleated Red Blood Cells % 0 %; Platelet Count 261 10^3/cmm (130-400); Red Blood Count 5.53 10^6/uL (4.1-5.3); Red Cell Distribution Width 15.9 % (12.1-15.1); White Blood Count 12.5 10^3/uL (4.0-10.0)
[2021-10-29 09:12] LABS: Ammonia 17 umol/L (16-60)
[2021-10-29 09:20] LABS: Calcium 8.9 mg/dL (8.5-10.5)
[2021-10-29 09:27] LABS: Parathyroid Hormone 63.3 pg/mL (15-65)
[2021-10-29 09:58] LABS: Alanine Aminotransferase 25 U/L (0-41); Albumin Level 4.7 g/dL (3.5-5.2); Alkaline Phosphatase 66 IU/L (40-130); Anion Gap 17.8 (5-19); Aspartate Amino Transferase 24 U/L (0-40); Blood Urea Nitrogen 26 mg/dL (6-20); C Reactive Protein 1.4 mg/L (0.0-4.9); Calcium 8.8 mg/dL (8.5-10.5); Carbon Dioxide 23 mmol/L (22-29); Chloride 101 mmol/L (98-107); Globulin 2.2 g/dL (1.3-4.6); Glomerular Filtration Rate 33.9 mL/min (90-130); Glucose 96 mg/dL (65-115); NT Pro B Type Natriuretic Pept 849 pg/mL (0-125); Osmolality Calculated 291 mOsm/kg (285-295); Potassium 3.8 mmol/L (3.5-5.1); Prostate Specific Antigen 0.451 ng/mL (0-4); Sodium 138 mmol/L (136-145); Thyroid Stimulating Hormone 0.64 uIU/mL (0.27-4.20); Total Bilirubin 0.2 mg/dL (0.15-1.2); Total Protein 6.9 g/dL (6.6-8.7)
[2021-10-29 12:47] LABS: Creatine Phosphokinase 342 U/L (39-308)
[2021-10-30 15:27] LABS: Cyclic Citrullinated Peptide <16 UNITS
[2021-10-30 16:19] LABS: Anti-Nuclear Antibody Screen NEGATIVE (NEGATIVE)
[2021-11-05 08:41] LABS: Hematocrit 47.8 % (42.0-52.0); Hemoglobin 15.1 g/dL (11.7-16.6); Mean Corpuscular HGB Conc 31.6 g/dL (30.0-36.0); Mean Corpuscular Hemoglobin 27.1 pg (28.0-34.0); Mean Corpuscular Volume 85.7 fl (80-94); Mean Platelet Volume 10.1 fL (7.4-10.4); Platelet Count 232 10^3/cmm (130-400); Red Blood Count 5.58 10^6/uL (4.1-5.3); Red Cell Distribution Width 17.1 % (12.1-15.1); White Blood Count 8.2 10^3/uL (4.0-10.0)
[2021-11-05 09:00] LABS: Ammonia 16 umol/L (16-60)
[2021-11-05 09:06] LABS: Alanine Aminotransferase 18 U/L (0-41); Albumin Level 4.4 g/dL (3.5-5.2); Alkaline Phosphatase 66 IU/L (40-130); Anion Gap 14.4 (5-19); Aspartate Amino Transferase 17 U/L (0-40); Blood Urea Nitrogen 17 mg/dL (6-20); Calcium 8.7 mg/dL (8.5-10.5); Carbon Dioxide 26 mmol/L (22-29); Chloride 106 mmol/L (98-107); Creatine Phosphokinase 162 U/L (39-308); Globulin 1.6 g/dL (1.3-4.6); Glomerular Filtration Rate 40.5 mL/min (90-130); Glucose 76 mg/dL (65-115); NT Pro B Type Natriuretic Pept 173 pg/mL (0-125); Osmolality Calculated 294 mOsm/kg (285-295); Potassium 4.4 mmol/L (3.5-5.1); Sodium 142 mmol/L (136-145); Total Bilirubin 0.3 mg/dL (0.15-1.2)
[2021-11-05 09:27] LABS: Absolute Neutrophil 7.1 10^3/cmm (1.4-6.5); Absolute Segmented Neutrophil 7.1 10/cmm (1.6-7.1); Band Neutrophils Absolute 0.1 10^3/cmm (0.0-1.2); Eosinophils 1 %; Lymphocytes 10 %; Lymphocytes Absolute 0.8 10^3/cmm (1.2-3.4); Monocytes Absolute 0.2 10^3/cmm (0.1-0.6); Platelet Estimate Normal (Normal); Segmented Neutrophils 86 %; Total Cells Counted 100 (0-100)
[2021-11-12 08:36] LABS: Basophils % 0.4 %; Eosinophils # 0.2 10^3/uL (0.0-0.8); Eosinophils % 2.6 %; Hematocrit 49.6 % (42.0-52.0); Hemoglobin 15.4 g/dL (11.7-16.6); Lymphocytes # 1.8 10^3/uL (0.8-4.8); Lymphocytes % 22.1 %; Mean Corpuscular Hemoglobin 26.5 pg (28.0-34.0); Mean Corpuscular Volume 85.4 fl (80-94); Mean Platelet Volume 9.9 fL (7.4-10.4); Monocytes # 0.5 10^3/uL (0.2-0.9); Monocytes % 6.5 %; Neutrophils # 5.44 10^3/uL (1.8-7.7); Neutrophils % 68.3 %; Nucleated Red Blood Cells % 0 %; Platelet Count 207 10^3/cmm (130-400); Red Blood Count 5.81 10^6/uL (4.1-5.3); Red Cell Distribution Width 16.7 % (12.1-15.1)
[2021-11-12 08:59] LABS: Ammonia 26 umol/L (16-60)
[2021-11-12 09:04] LABS: Alanine Aminotransferase 23 U/L (0-41); Albumin Level 4.5 g/dL (3.5-5.2); Alkaline Phosphatase 63 IU/L (40-130); Anion Gap 17.1 (5-19); Aspartate Amino Transferase 19 U/L (0-40); Blood Urea Nitrogen 18 mg/dL (6-20); Calcium 8.7 mg/dL (8.5-10.5); Carbon Dioxide 22 mmol/L (22-29); Chloride 105 mmol/L (98-107); Creatine Phosphokinase 118 U/L (39-308); Globulin 1.7 g/dL (1.3-4.6); Glomerular Filtration Rate 40.5 mL/min (90-130); Glucose 91 mg/dL (65-115); NT Pro B Type Natriuretic Pept 109 pg/mL (0-125); Osmolality Calculated 291 mOsm/kg (285-295); Potassium 4.1 mmol/L (3.5-5.1); Sodium 140 mmol/L (136-145); Total Bilirubin 0.3 mg/dL (0.15-1.2); Total Protein 6.2 g/dL (6.6-8.7)
[2021-11-26 08:33] LABS: Basophils # 0.1 10^3/uL (0.0-0.1); Basophils % 0.7 %; Eosinophils # 0.2 10^3/uL (0.0-0.8); Eosinophils % 2.6 %; Hematocrit 46.7 % (42.0-52.0); Hemoglobin 14.6 g/dL (11.7-16.6); Lymphocytes # 1.5 10^3/uL (0.8-4.8); Lymphocytes % 16.6 %; Mean Corpuscular HGB Conc 31.3 g/dL (30.0-36.0); Mean Corpuscular Hemoglobin 26.8 pg (28.0-34.0); Mean Corpuscular Volume 85.7 fl (80-94); Monocytes # 0.7 10^3/uL (0.2-0.9); Monocytes % 7.2 %; Neutrophils % 72.6 %; Nucleated Red Blood Cells % 0 %; Platelet Count 212 10^3/cmm (130-400); Red Blood Count 5.45 10^6/uL (4.1-5.3); Red Cell Distribution Width 16.3 % (12.1-15.1); White Blood Count 9.2 10^3/uL (4.0-10.0)
[2021-11-26 08:55] LABS: Ammonia 21 umol/L (16-60)
[2021-11-26 09:10] LABS: Alanine Aminotransferase 19 U/L (0-41); Albumin Level 4.3 g/dL (3.5-5.2); Alkaline Phosphatase 70 IU/L (40-130); Anion Gap 15.6 (5-19); Aspartate Amino Transferase 29 U/L (0-40); Blood Urea Nitrogen 20 mg/dL (6-20); Calcium 9.8 mg/dL (8.5-10.5); Carbon Dioxide 25 mmol/L (22-29); Chloride 105 mmol/L (98-107); Glomerular Filtration Rate 35.8 mL/min (90-130); Glucose 81 mg/dL (65-115); NT Pro B Type Natriuretic Pept 376 pg/mL (0-125); Osmolality Calculated 294 mOsm/kg (285-295); Potassium 4.6 mmol/L (3.5-5.1); Sodium 141 mmol/L (136-145); Total Bilirubin 0.5 mg/dL (0.15-1.2); Total Protein 6.3 g/dL (6.6-8.7)
[2021-11-26 16:54] LABS: Creatine Phosphokinase 433 U/L (39-308)
== END 2021-11-26 23:59 | disposition home or self-care (01) ==
LOC: LAB 08:15
PROVIDERS: PCP Family Medicine; Visit Provider Family Medicine
DX: M62.82 Rhabdomyolysis (principal); N17.0 Acute kidney failure with tubular necrosis; E72.20 Disorder of urea cycle metabolism, unspecified; I25.118 Atherosclerotic heart disease of native coronary artery with other forms of angina pectoris; R60.1 Generalized edema; I51.9 Heart disease, unspecified; Z12.5 Encounter for screening for malignant neoplasm of prostate; R39.11 Hesitancy of micturition; M25.50 Pain in unspecified joint; M62.9 Disorder of muscle, unspecified
CPT/HCPCS: 36415; 80053; 82140; 82310; 82550; 83880; 83970; 84153; 84443; 85007; 85025; 85027; 86038; 86140; 86200

== ENCOUNTER → 2021-11-28 09:03 | Day surgery (SDC) | payer MEDICARE, MEDICAID, SELFPAY ==
[2021-11-28 09:20] VITALS: BP 119/74; PULSE 82; RESP 18; TEMP 36.6; O2SAT 97; BMI 19.1
[2021-11-28] MEDS: sodium chloride 0.9% 1,000 ML 250 ML IV (09:33)
== END ==
PROVIDERS: PCP Family Medicine; Visit Provider Family Medicine
DX: E74.04 McArdle disease (principal); N18.31 Chronic kidney disease, stage 3a; N17.0 Acute kidney failure with tubular necrosis; M62.82 Rhabdomyolysis
CPT/HCPCS: 96360; 96361; J7030

== ENCOUNTER 2021-12-17 08:20 | Outpatient (RCR) | payer MEDICARE, MEDICAID, SELFPAY ==
[2021-11-30 10:35] LABS: Hematocrit 47.2 % (42.0-52.0); Hemoglobin 14.9 g/dL (11.7-16.6); Mean Corpuscular HGB Conc 31.6 g/dL (30.0-36.0); Mean Corpuscular Hemoglobin 27.3 pg (28.0-34.0); Mean Corpuscular Volume 86.6 fl (80-94); Mean Platelet Volume 10.7 fL (7.4-10.4); Platelet Count 238 10^3/cmm (130-400); Red Blood Count 5.45 10^6/uL (4.1-5.3); Red Cell Distribution Width 17.1 % (12.1-15.1); White Blood Count 6.3 10^3/uL (4.0-10.0)
[2021-11-30 10:40] LABS: Ammonia 35 umol/L (16-60)
[2021-11-30 10:45] LABS: Alanine Aminotransferase 20 U/L (0-41); Albumin Level 4.1 g/dL (3.5-5.2); Alkaline Phosphatase 66 IU/L (40-130); Anion Gap 13.1 (5-19); Aspartate Amino Transferase 35 U/L (0-40); Blood Urea Nitrogen 12 mg/dL (6-20); Calcium 8.9 mg/dL (8.5-10.5); Carbon Dioxide 25 mmol/L (22-29); Chloride 108 mmol/L (98-107); Globulin 1.8 g/dL (1.3-4.6); Glomerular Filtration Rate 35.8 mL/min (90-130); Glucose 82 mg/dL (65-115); NT Pro B Type Natriuretic Pept 951 pg/mL (0-125); Osmolality Calculated 293 mOsm/kg (285-295); Potassium 4.1 mmol/L (3.5-5.1); Sodium 142 mmol/L (136-145); Total Bilirubin 0.2 mg/dL (0.15-1.2); Total Protein 5.9 g/dL (6.6-8.7)
[2021-11-30 11:04] LABS: Absolute Eosinophils 0.1 10^3/cmm (0.0-0.7); Absolute Segmented Neutrophil 3.8 10/cmm (1.6-7.1); Band Neutrophils Absolute 0.1 10^3/cmm (0.0-1.2); Basophils Absolute 0.1 10^3/cmm (0.0-0.2); Eosinophils 2 %; Lymphocytes 27 %; Lymphocytes Absolute 1.8 10^3/cmm (1.2-3.4); Monocytes Absolute 0.4 10^3/cmm (0.1-0.6); Platelet Estimate Normal (Normal); Segmented Neutrophils 61 %; Total Cells Counted 100 (0-100)
[2021-11-30 11:17] LABS: Creatine Phosphokinase 421 U/L (39-308)
[2021-12-10 09:53] LABS: Basophils # 0.1 10^3/uL (0.0-0.1); Basophils % 0.9 %; Eosinophils # 0.3 10^3/uL (0.0-0.8); Eosinophils % 3.5 %; Hematocrit 47.6 % (42.0-52.0); Hemoglobin 15.1 g/dL (11.7-16.6); Lymphocytes # 2.1 10^3/uL (0.8-4.8); Lymphocytes % 28.3 %; Mean Corpuscular HGB Conc 31.7 g/dL (30.0-36.0); Mean Corpuscular Hemoglobin 27.1 pg (28.0-34.0); Mean Corpuscular Volume 85.5 fl (80-94); Mean Platelet Volume 10.3 fL (7.4-10.4); Monocytes # 0.6 10^3/uL (0.2-0.9); Neutrophils # 4.39 10^3/uL (1.8-7.7); Neutrophils % 59.2 %; Nucleated Red Blood Cells % 0 %; Platelet Count 281 10^3/cmm (130-400); Red Blood Count 5.57 10^6/uL (4.1-5.3); Red Cell Distribution Width 16.6 % (12.1-15.1); White Blood Count 7.4 10^3/uL (4.0-10.0)
[2021-12-10 10:08] LABS: Ammonia 28 umol/L (16-60)
[2021-12-10 10:26] LABS: Alanine Aminotransferase 19 U/L (0-41); Albumin Level 4.9 g/dL (3.5-5.2); Alkaline Phosphatase 83 IU/L (40-130); Aspartate Amino Transferase 18 U/L (0-40); Blood Urea Nitrogen 23 mg/dL (6-20); Carbon Dioxide 24 mmol/L (22-29); Chloride 103 mmol/L (98-107); Creatine Phosphokinase 130 U/L (39-308); Glucose 88 mg/dL (65-115); NT Pro B Type Natriuretic Pept 154 pg/mL (0-125); Osmolality Calculated 289 mOsm/kg (285-295); Sodium 138 mmol/L (136-145); Total Bilirubin 0.3 mg/dL (0.15-1.2); Total Protein 6.9 g/dL (6.6-8.7)
[2021-12-17 08:51] LABS: Basophils # 0.1 10^3/uL (0.0-0.1); Basophils % 1.1 %; Eosinophils # 0.2 10^3/uL (0.0-0.8); Eosinophils % 3.1 %; Hematocrit 50.9 % (42.0-52.0); Hemoglobin 15.7 g/dL (11.7-16.6); Lymphocytes % 27.4 %; Mean Corpuscular HGB Conc 30.8 g/dL (30.0-36.0); Mean Corpuscular Hemoglobin 26.7 pg (28.0-34.0); Mean Corpuscular Volume 86.7 fl (80-94); Mean Platelet Volume 10.4 fL (7.4-10.4); Monocytes # 0.6 10^3/uL (0.2-0.9); Monocytes % 8.3 %; Neutrophils # 4.46 10^3/uL (1.8-7.7); Neutrophils % 59.8 %; Nucleated Red Blood Cells % 0 %; Platelet Count 252 10^3/cmm (130-400); Red Blood Count 5.87 10^6/uL (4.1-5.3); White Blood Count 7.5 10^3/uL (4.0-10.0)
[2021-12-17 09:02] LABS: Ammonia 30 umol/L (16-60)
[2021-12-17 09:16] LABS: Alanine Aminotransferase 16 U/L (0-41); Albumin Level 4.9 g/dL (3.5-5.2); Alkaline Phosphatase 76 IU/L (40-130); Anion Gap 13.5 (5-19); Aspartate Amino Transferase 18 U/L (0-40); Blood Urea Nitrogen 18 mg/dL (6-20); Carbon Dioxide 26 mmol/L (22-29); Chloride 104 mmol/L (98-107); Creatine Phosphokinase 119 U/L (39-308); Globulin 2.2 g/dL (1.3-4.6); Glomerular Filtration Rate 43.2 mL/min (90-130); Glucose 101 mg/dL (65-115); NT Pro B Type Natriuretic Pept 115 pg/mL (0-125); Osmolality Calculated 290 mOsm/kg (285-295); Potassium 4.5 mmol/L (3.5-5.1); Sodium 139 mmol/L (136-145); Total Bilirubin 0.3 mg/dL (0.15-1.2); Total Protein 7.1 g/dL (6.6-8.7)
== END 2021-12-24 23:59 | disposition home or self-care (01) ==
LOC: LAB 08:20
PROVIDERS: PCP Family Medicine; Visit Provider Family Medicine
DX: M62.82 Rhabdomyolysis (principal); N17.0 Acute kidney failure with tubular necrosis; I25.118 Atherosclerotic heart disease of native coronary artery with other forms of angina pectoris; R60.1 Generalized edema; I51.9 Heart disease, unspecified; R39.11 Hesitancy of micturition; M25.50 Pain in unspecified joint; G89.29 Other chronic pain; E72.20 Disorder of urea cycle metabolism, unspecified
CPT/HCPCS: 36415; 80053; 82140; 82550; 83880; 85007; 85025; 85027

== ENCOUNTER 2022-01-14 08:11 | Outpatient (RCR) | payer MEDICARE, MEDICAID, SELFPAY ==
[2021-12-31 08:49] LABS: Basophils # 0.1 10^3/uL (0.0-0.1); Basophils % 0.5 %; Eosinophils # 0.4 10^3/uL (0.0-0.8); Eosinophils % 4.6 %; Hematocrit 48.4 % (42.0-52.0); Hemoglobin 15.4 g/dL (11.7-16.6); Lymphocytes # 1.7 10^3/uL (0.8-4.8); Lymphocytes % 18.1 %; Mean Corpuscular HGB Conc 31.8 g/dL (30.0-36.0); Mean Corpuscular Hemoglobin 26.9 pg (28.0-34.0); Mean Corpuscular Volume 84.5 fl (80-94); Mean Platelet Volume 10.1 fL (7.4-10.4); Monocytes # 0.7 10^3/uL (0.2-0.9); Neutrophils # 6.24 10^3/uL (1.8-7.7); Neutrophils % 68.6 %; Nucleated Red Blood Cells % 0 %; Platelet Count 230 10^3/cmm (130-400); Red Blood Count 5.73 10^6/uL (4.1-5.3); Red Cell Distribution Width 16.5 % (12.1-15.1); White Blood Count 9.1 10^3/uL (4.0-10.0)
[2021-12-31 09:20] LABS: Alanine Aminotransferase 20 U/L (0-41); Albumin Level 4.8 g/dL (3.5-5.2); Alkaline Phosphatase 73 IU/L (40-130); Ammonia 26 umol/L (16-60); Anion Gap 16.3 (5-19); Aspartate Amino Transferase 26 U/L (0-40); Blood Urea Nitrogen 20 mg/dL (6-20); Calcium 10.1 mg/dL (8.5-10.5); Carbon Dioxide 27 mmol/L (22-29); Chloride 99 mmol/L (98-107); Creatine Phosphokinase 270 U/L (39-308); Globulin 2.5 g/dL (1.3-4.6); Glomerular Filtration Rate 35.8 mL/min (90-130); Glucose 95 mg/dL (65-115); Osmolality Calculated 288 mOsm/kg (285-295); Potassium 4.3 mmol/L (3.5-5.1); Sodium 138 mmol/L (136-145); Total Bilirubin 0.4 mg/dL (0.15-1.2); Total Protein 7.3 g/dL (6.6-8.7)
[2021-12-31 10:14] LABS: NT Pro B Type Natriuretic Pept 393 pg/mL (0-125)
[2022-01-14 08:47] LABS: Basophils # 0.1 10^3/uL (0.0-0.1); Basophils % 1.1 %; Eosinophils # 0.2 10^3/uL (0.0-0.8); Eosinophils % 2.8 %; Hematocrit 49.8 % (42.0-52.0); Hemoglobin 15.5 g/dL (11.7-16.6); Lymphocytes # 1.6 10^3/uL (0.8-4.8); Lymphocytes % 24.7 %; Mean Corpuscular HGB Conc 31.1 g/dL (30.0-36.0); Mean Corpuscular Hemoglobin 26.3 pg (28.0-34.0); Mean Corpuscular Volume 84.6 fl (80-94); Mean Platelet Volume 10.7 fL (7.4-10.4); Monocytes # 0.5 10^3/uL (0.2-0.9); Monocytes % 7.2 %; Neutrophils # 4.06 10^3/uL (1.8-7.7); Neutrophils % 63.9 %; Nucleated Red Blood Cells % 0 %; Platelet Count 233 10^3/cmm (130-400); Red Blood Count 5.89 10^6/uL (4.1-5.3); Red Cell Distribution Width 16.1 % (12.1-15.1); White Blood Count 6.4 10^3/uL (4.0-10.0)
[2022-01-14 09:02] LABS: Ammonia 20 umol/L (16-60)
[2022-01-14 09:12] LABS: Alanine Aminotransferase 15 U/L (0-41); Albumin Level 4.8 g/dL (3.5-5.2); Alkaline Phosphatase 71 IU/L (40-130); Aspartate Amino Transferase 16 U/L (0-40); Blood Urea Nitrogen 22 mg/dL (6-20); Calcium 9.8 mg/dL (8.5-10.5); Carbon Dioxide 24 mmol/L (22-29); Creatine Phosphokinase 122 U/L (39-308); Globulin 1.9 g/dL (1.3-4.6); Glomerular Filtration Rate 30.5 mL/min (90-130); Glucose 98 mg/dL (65-115); Total Bilirubin 0.3 mg/dL (0.15-1.2); Total Protein 6.7 g/dL (6.6-8.7)
[2022-01-14 10:19] LABS: Anion Gap 14.4 (5-19); Osmolality Calculated 293 mOsm/kg (285-295); Potassium 4.4 mmol/L (3.5-5.1); Sodium 140 mmol/L (136-145)
[2022-01-14 10:20] LABS: Chloride 106 mmol/L (98-107)
[2022-01-21 09:40] LABS: Ammonia 27 umol/L (16-60)
[2022-01-21 09:44] LABS: Basophils # 0.1 10^3/uL (0.0-0.1); Basophils % 0.7 %; Eosinophils # 0.2 10^3/uL (0.0-0.8); Eosinophils % 2.8 %; Hematocrit 50.9 % (42.0-52.0); Hemoglobin 15.9 g/dL (11.7-16.6); Lymphocytes # 1.8 10^3/uL (0.8-4.8); Lymphocytes % 26.8 %; Mean Corpuscular HGB Conc 31.2 g/dL (30.0-36.0); Mean Corpuscular Hemoglobin 26.9 pg (28.0-34.0); Mean Corpuscular Volume 86.3 fl (80-94); Mean Platelet Volume 10.5 fL (7.4-10.4); Monocytes # 0.5 10^3/uL (0.2-0.9); Monocytes % 7.3 %; Neutrophils # 4.15 10^3/uL (1.8-7.7); Neutrophils % 62.1 %; Nucleated Red Blood Cells % 0 %; Platelet Count 214 10^3/cmm (130-400); Red Cell Distribution Width 16.5 % (12.1-15.1); White Blood Count 6.7 10^3/uL (4.0-10.0)
[2022-01-21 10:19] LABS: Alanine Aminotransferase 14 U/L (0-41); Albumin Level 4.6 g/dL (3.5-5.2); Alkaline Phosphatase 66 IU/L (40-130); Anion Gap 13.4 (5-19); Aspartate Amino Transferase 17 U/L (0-40); Blood Urea Nitrogen 18 mg/dL (6-20); Calcium 9.8 mg/dL (8.5-10.5); Carbon Dioxide 23 mmol/L (22-29); Chloride 106 mmol/L (98-107); Creatine Phosphokinase 144 U/L (39-308); Globulin 2.3 g/dL (1.3-4.6); Glucose 86 mg/dL (65-115); NT Pro B Type Natriuretic Pept 114 pg/mL (0-125); Osmolality Calculated 287 mOsm/kg (285-295); Potassium 4.4 mmol/L (3.5-5.1); Sodium 138 mmol/L (136-145); Total Bilirubin 0.3 mg/dL (0.15-1.2); Total Protein 6.9 g/dL (6.6-8.7)
== END 2022-01-24 23:59 | disposition home or self-care (01) ==
LOC: LAB 08:11
PROVIDERS: PCP Family Medicine; Visit Provider Family Medicine
DX: M62.82 Rhabdomyolysis (principal); I10 Essential (primary) hypertension; I50.33 Acute on chronic diastolic (congestive) heart failure; N18.30 Chronic kidney disease, stage 3 unspecified
CPT/HCPCS: 36415; 80053; 82140; 82550; 83880; 85025

== ENCOUNTER → 2022-01-31 07:13 | Day surgery (SDC) | payer MEDICARE, MEDICAID, SELFPAY ==
[2022-01-31] MEDS: sodium chloride 0.9% 1,000 ML 350 ML IV (07:37)
[2022-01-31 07:41] VITALS: BP 135/66; PULSE 83; RESP 18; TEMP 36.4; O2SAT 97
== END ==
PROVIDERS: PCP Family Medicine; Visit Provider Family Medicine
DX: N17.0 Acute kidney failure with tubular necrosis (principal); M62.82 Rhabdomyolysis; E71.314 Muscle carnitine palmitoyltransferase deficiency
CPT/HCPCS: 96360; 96361; J7030

== ENCOUNTER 2022-02-04 08:14 | Outpatient (RCR) | payer MEDICARE, MEDICAID, SELFPAY ==
[2022-01-28 08:27] LABS: Basophils % 0.7 %; Eosinophils # 0.4 10^3/uL (0.0-0.8); Eosinophils % 6.8 %; Hematocrit 44.9 % (42.0-52.0); Hemoglobin 14.3 g/dL (11.7-16.6); Lymphocytes # 1.1 10^3/uL (0.8-4.8); Lymphocytes % 19.1 %; Mean Corpuscular HGB Conc 31.8 g/dL (30.0-36.0); Mean Corpuscular Hemoglobin 27.2 pg (28.0-34.0); Mean Corpuscular Volume 85.5 fl (80-94); Mean Platelet Volume 10.1 fL (7.4-10.4); Monocytes # 0.6 10^3/uL (0.2-0.9); Monocytes % 11.5 %; Neutrophils # 3.42 10^3/uL (1.8-7.7); Neutrophils % 61.7 %; Nucleated Red Blood Cells % 0 %; Platelet Count 173 10^3/cmm (130-400); Red Blood Count 5.25 10^6/uL (4.1-5.3); Red Cell Distribution Width 16.7 % (12.1-15.1); White Blood Count 5.6 10^3/uL (4.0-10.0)
[2022-01-28 08:55] LABS: Ammonia 33 umol/L (16-60)
[2022-01-28 09:05] LABS: Alanine Aminotransferase 17 U/L (0-41); Albumin Level 4.2 g/dL (3.5-5.2); Alkaline Phosphatase 64 IU/L (40-130); Anion Gap 11.6 (5-19); Aspartate Amino Transferase 34 U/L (0-40); Blood Urea Nitrogen 14 mg/dL (6-20); Calcium 9.1 mg/dL (8.5-10.5); Carbon Dioxide 24 mmol/L (22-29); Chloride 105 mmol/L (98-107); Globulin 1.6 g/dL (1.3-4.6); Glucose 95 mg/dL (65-115); NT Pro B Type Natriuretic Pept 767 pg/mL (0-125); Osmolality Calculated 284 mOsm/kg (285-295); Potassium 3.6 mmol/L (3.5-5.1); Sodium 137 mmol/L (136-145); Total Bilirubin 0.2 mg/dL (0.15-1.2); Total Protein 5.8 g/dL (6.6-8.7)
[2022-01-28 09:28] LABS: Creatine Phosphokinase 570 U/L (39-308)
[2022-02-04 09:03] LABS: Basophils # 0.1 10^3/uL (0.0-0.1); Basophils % 0.7 %; Eosinophils # 0.4 10^3/uL (0.0-0.8); Eosinophils % 4.9 %; Hematocrit 49.1 % (42.0-52.0); Hemoglobin 15.4 g/dL (11.7-16.6); Lymphocytes # 1.9 10^3/uL (0.8-4.8); Lymphocytes % 26.8 %; Mean Corpuscular HGB Conc 31.4 g/dL (30.0-36.0); Mean Corpuscular Hemoglobin 26.8 pg (28.0-34.0); Mean Corpuscular Volume 85.5 fl (80-94); Mean Platelet Volume 10.4 fL (7.4-10.4); Monocytes # 0.6 10^3/uL (0.2-0.9); Neutrophils # 4.25 10^3/uL (1.8-7.7); Neutrophils % 59.3 %; Nucleated Red Blood Cells % 0 %; Platelet Count 206 10^3/cmm (130-400); Red Blood Count 5.74 10^6/uL (4.1-5.3); Red Cell Distribution Width 16.4 % (12.1-15.1); White Blood Count 7.2 10^3/uL (4.0-10.0)
[2022-02-04 09:25] LABS: Ammonia 19 umol/L (16-60)
[2022-02-04 09:42] LABS: Alanine Aminotransferase 23 U/L (0-41); Albumin Level 4.8 g/dL (3.5-5.2); Alkaline Phosphatase 72 IU/L (40-130); Anion Gap 14.3 (5-19); Aspartate Amino Transferase 27 U/L (0-40); Blood Urea Nitrogen 22 mg/dL (6-20); Calcium 9.7 mg/dL (8.5-10.5); Carbon Dioxide 24 mmol/L (22-29); Chloride 104 mmol/L (98-107); Creatine Phosphokinase 287 U/L (39-308); Globulin 1.7 g/dL (1.3-4.6); Glomerular Filtration Rate 33.9 mL/min (90-130); Glucose 96 mg/dL (65-115); NT Pro B Type Natriuretic Pept 164 pg/mL (0-125); Osmolality Calculated 289 mOsm/kg (285-295); Potassium 4.3 mmol/L (3.5-5.1); Sodium 138 mmol/L (136-145); Total Bilirubin 0.3 mg/dL (0.15-1.2); Total Protein 6.5 g/dL (6.6-8.7)
== END 2022-02-23 23:59 | disposition home or self-care (01) ==
LOC: LAB 08:14
PROVIDERS: PCP Family Medicine; Visit Provider Family Medicine
DX: M62.82 Rhabdomyolysis (principal); I10 Essential (primary) hypertension
CPT/HCPCS: 80053; 82140; 82550; 83880; 85025

== ENCOUNTER 2022-02-14 15:11 | Outpatient (CLI) | payer MEDICARE, MEDICAID, SELFPAY ==
--- NOTE | 2022-02-14 15:25 | US_ITS ---
WS: [id number] RENAL ULTRASOUND HISTORY: CHRONIC KIDNEY DISEASE STAGE 3B COMPARISON: 03/14/2019 TECHNIQUE: 2-D and color Doppler imaging of the kidney submitted. Right kidney: 9.3 cm x 3.9 cm x 4.5 cm. Normal echogenicity with no hydronephrosis or mass. Left kidney: 9.1 cm x 4.4 cm x 5.3 cm. Normal echogenicity with no hydronephrosis or mass. Aorta: Normal. Urinary Bladder: Soft tissue nodule without increased vascularity protrudes into the base of the urin mary bladder. This may be prostate enlargement. There is no vascularity. Small amount of clotted blood would appear similar. US/US renal BI* [id number] IMPRESSION: 1. Normal renal ultrasound. 2. Focal soft tissue extends into the base of the urinary bladder. Soft tissue is inseparable from the prostate gland. This may be mild prostate hypertrophy but the patient is younger than expected for prostate encroachment into the severino dder. There is no vascularity. The differential also includes a bladder neoplas m and clotted blood.
== END 2022-02-14 15:12 | disposition home or self-care (01) ==
LOC: RAD 15:16
PROVIDERS: PCP Family Medicine; Visit Provider Internal Medicine Nephrology
DX: N18.32 Chronic kidney disease, stage 3b (principal)
CPT/HCPCS: 76770

== ENCOUNTER 2022-02-18 08:14 | Outpatient (CLI) | payer MEDICARE, MEDICAID, SELFPAY ==
[2022-02-18 08:42] LABS: Basophils # 0.1 10^3/uL (0.0-0.1); Basophils % 0.8 %; Eosinophils # 0.2 10^3/uL (0.0-0.8); Eosinophils % 2.9 %; Hematocrit 49.3 % (42.0-52.0); Hemoglobin 15.9 g/dL (11.7-16.6); Lymphocytes % 26.6 %; Mean Corpuscular HGB Conc 32.3 g/dL (30.0-36.0); Mean Corpuscular Hemoglobin 27.5 pg (28.0-34.0); Mean Corpuscular Volume 85.1 fl (80-94); Mean Platelet Volume 10.3 fL (7.4-10.4); Monocytes # 0.5 10^3/uL (0.2-0.9); Neutrophils # 4.75 10^3/uL (1.8-7.7); Neutrophils % 62.4 %; Nucleated Red Blood Cells % 0 %; Platelet Count 256 10^3/cmm (130-400); Red Blood Count 5.79 10^6/uL (4.1-5.3); Red Cell Distribution Width 16.3 % (12.1-15.1); White Blood Count 7.6 10^3/uL (4.0-10.0)
[2022-02-18 08:58] LABS: Ammonia 25 umol/L (16-60)
[2022-02-18 09:08] LABS: Alanine Aminotransferase 22 U/L (0-41); Albumin Level 4.5 g/dL (3.5-5.2); Alkaline Phosphatase 68 IU/L (40-130); Anion Gap 15.4 (5-19); Aspartate Amino Transferase 23 U/L (0-40); Blood Urea Nitrogen 18 mg/dL (6-20); Calcium 8.8 mg/dL (8.5-10.5); Carbon Dioxide 22 mmol/L (22-29); Chloride 105 mmol/L (98-107); Creatine Phosphokinase 215 U/L (39-308); Globulin 2.5 g/dL (1.3-4.6); Glomerular Filtration Rate 35.8 mL/min (90-130); Glucose 102 mg/dL (65-115); NT Pro B Type Natriuretic Pept 127 pg/mL (0-125); Osmolality Calculated 288 mOsm/kg (285-295); Potassium 4.4 mmol/L (3.5-5.1); Sodium 138 mmol/L (136-145); Total Bilirubin 0.3 mg/dL (0.15-1.2)
== END 2022-02-18 08:15 | disposition home or self-care (01) ==
LOC: LAB 08:16
PROVIDERS: PCP Family Medicine; Visit Provider Family Medicine
DX: M62.82 Rhabdomyolysis (principal)
CPT/HCPCS: 36415; 80053; 82140; 82550; 83880; 85025

== ENCOUNTER 2022-03-11 08:09 | Outpatient (CLI) | payer MEDICARE, MEDICAID, SELFPAY ==
[2022-03-11 08:44] LABS: Basophils # 0.1 10^3/uL (0.0-0.1); Eosinophils # 0.2 10^3/uL (0.0-0.8); Eosinophils % 3.3 %; Hemoglobin 15.9 g/dL (11.7-16.6); Lymphocytes % 27.9 %; Mean Corpuscular HGB Conc 30.6 g/dL (30.0-36.0); Mean Corpuscular Hemoglobin 27.1 pg (28.0-34.0); Mean Corpuscular Volume 88.7 fl (80-94); Monocytes # 0.5 10^3/uL (0.2-0.9); Monocytes % 7.4 %; Neutrophils # 4.21 10^3/uL (1.8-7.7); Nucleated Red Blood Cells % 0 %; Platelet Count 163 10^3/cmm (130-400); Red Blood Count 5.86 10^6/uL (4.1-5.3); Red Cell Distribution Width 15.9 % (12.1-15.1)
[2022-03-11 09:02] LABS: Ammonia 44 umol/L (16-60)
[2022-03-11 09:13] LABS: Alanine Aminotransferase 19 U/L (0-41); Albumin Level 4.6 g/dL (3.5-5.2); Alkaline Phosphatase 69 IU/L (40-130); Aspartate Amino Transferase 21 U/L (0-40); Blood Urea Nitrogen 20 mg/dL (6-20); Carbon Dioxide 20 mmol/L (22-29); Chloride 105 mmol/L (98-107); Creatine Phosphokinase 218 U/L (39-308); Globulin 2.2 g/dL (1.3-4.6); Glucose 103 mg/dL (65-115); NT Pro B Type Natriuretic Pept 85 pg/mL (0-125); Osmolality Calculated 287 mOsm/kg (285-295); Sodium 137 mmol/L (136-145); Total Bilirubin 0.3 mg/dL (0.15-1.2); Total Protein 6.8 g/dL (6.6-8.7)
[2022-03-11 09:27] LABS: Anion Gap 16.2 (5-19); Potassium 4.2 mmol/L (3.5-5.1)
== END 2022-03-11 08:10 | disposition home or self-care (01) ==
PROVIDERS: PCP Family Medicine; Visit Provider Family Medicine
DX: M62.82 Rhabdomyolysis (principal); R60.1 Generalized edema; I51.9 Heart disease, unspecified; I25.10 Atherosclerotic heart disease of native coronary artery without angina pectoris
CPT/HCPCS: 36415; 80053; 82140; 82550; 83880; 85025

== ENCOUNTER → 2022-03-28 11:00 | Day surgery (SDC) | payer MEDICARE, MEDICAID, SELFPAY ==
[2022-03-28] MEDS: sodium chloride 0.9% 1,000 ML 350 ML IV (11:08)
[2022-03-28 11:35] VITALS: BP 138/76; PULSE 90; RESP 18; TEMP 36.6; O2SAT 94
== END ==
PROVIDERS: PCP Family Medicine; Visit Provider Family Medicine
DX: M62.82 Rhabdomyolysis (principal)
CPT/HCPCS: 96360; 96361; J7030

== ENCOUNTER 2022-03-29 07:57 | Outpatient (CLI) | payer MEDICARE, MEDICAID, SELFPAY ==
[2022-03-29 08:53] LABS: Prostate Specific Antigen Scr 0.66 ng/mL (0-4)
== END 2022-03-29 07:58 | disposition home or self-care (01) ==
LOC: LAB 08:00
PROVIDERS: PCP Family Medicine; Visit Provider Urology
DX: Z12.5 Encounter for screening for malignant neoplasm of prostate (principal); N18.30 Chronic kidney disease, stage 3 unspecified; N32.9 Bladder disorder, unspecified; R39.15 Urgency of urination; N41.9 Inflammatory disease of prostate, unspecified
CPT/HCPCS: 51741; 51798; 52000; 81003; 99203; G0103

== ENCOUNTER 2022-04-05 07:36 | Outpatient (CLI) | payer MEDICARE, MEDICAID, SELFPAY ==
[2022-04-05 08:24] LABS: Basophils # 0.1 10^3/uL (0.0-0.1); Basophils % 0.8 %; Eosinophils # 0.2 10^3/uL (0.0-0.8); Eosinophils % 2.4 %; Hematocrit 50.5 % (42.0-52.0); Hemoglobin 16.5 g/dL (11.7-16.6); Lymphocytes # 1.6 10^3/uL (0.8-4.8); Lymphocytes % 22.4 %; Mean Corpuscular HGB Conc 32.7 g/dL (30.0-36.0); Mean Corpuscular Hemoglobin 27.1 pg (28.0-34.0); Mean Corpuscular Volume 82.9 fl (80-94); Mean Platelet Volume 10.7 fL (7.4-10.4); Monocytes # 0.6 10^3/uL (0.2-0.9); Monocytes % 8.1 %; Neutrophils # 4.67 10^3/uL (1.8-7.7); Neutrophils % 66.2 %; Nucleated Red Blood Cells % 0 %; Platelet Count 222 10^3/cmm (130-400); Red Blood Count 6.09 10^6/uL (4.1-5.3); Red Cell Distribution Width 15.9 % (12.1-15.1); White Blood Count 7.1 10^3/uL (4.0-10.0)
[2022-04-05 08:46] LABS: Alanine Aminotransferase 26 U/L (0-41); Albumin Level 4.7 g/dL (3.5-5.2); Alkaline Phosphatase 76 IU/L (40-130); Aspartate Amino Transferase 26 U/L (0-40); Blood Urea Nitrogen 27 mg/dL (6-20); Calcium 9.8 mg/dL (8.5-10.5); Carbon Dioxide 27 mmol/L (22-29); Chloride 100 mmol/L (98-107); Creatine Phosphokinase 257 U/L (39-308); Globulin 2.5 g/dL (1.3-4.6); Glomerular Filtration Rate 35.8 mL/min (90-130); Glucose 92 mg/dL (65-115); Osmolality Calculated 289 mOsm/kg (285-295); Sodium 137 mmol/L (136-145); Total Bilirubin 0.4 mg/dL (0.15-1.2); Total Protein 7.2 g/dL (6.6-8.7)
[2022-04-05 08:51] LABS: Anion Gap 14.9 (5-19); Potassium 4.9 mmol/L (3.5-5.1)
[2022-04-05 08:52] LABS: Ammonia 18 umol/L (16-60)
== END 2022-04-05 07:37 | disposition home or self-care (01) ==
PROVIDERS: PCP Family Medicine; Visit Provider Family Medicine
DX: E74.04 McArdle disease (principal)
CPT/HCPCS: 80053; 82140; 82550; 85025

== ENCOUNTER 2022-04-17 06:53 | Outpatient (RCR) | payer MEDICARE, MEDICAID, SELFPAY ==
[2022-02-25 09:47] LABS: Basophils % 0.6 %; Eosinophils # 0.3 10^3/uL (0.0-0.8); Eosinophils % 4.6 %; Hematocrit 45.2 % (42.0-52.0); Hemoglobin 14.1 g/dL (11.7-16.6); Lymphocytes # 1.4 10^3/uL (0.8-4.8); Lymphocytes % 20.8 %; Mean Corpuscular HGB Conc 31.2 g/dL (30.0-36.0); Mean Corpuscular Hemoglobin 27.3 pg (28.0-34.0); Mean Corpuscular Volume 87.4 fl (80-94); Mean Platelet Volume 10.4 fL (7.4-10.4); Monocytes # 0.6 10^3/uL (0.2-0.9); Monocytes % 8.2 %; Neutrophils # 4.53 10^3/uL (1.8-7.7); Neutrophils % 65.7 %; Nucleated Red Blood Cells % 0 %; Platelet Count 181 10^3/cmm (130-400); Red Blood Count 5.17 10^6/uL (4.1-5.3); Red Cell Distribution Width 16.2 % (12.1-15.1); White Blood Count 6.9 10^3/uL (4.0-10.0)
[2022-02-25 10:03] LABS: Ammonia 31 umol/L (16-60)
[2022-02-25 10:27] LABS: Alanine Aminotransferase 21 U/L (0-41); Albumin Level 4.1 g/dL (3.5-5.2); Alkaline Phosphatase 60 IU/L (40-130); Aspartate Amino Transferase 27 U/L (0-40); Blood Urea Nitrogen 19 mg/dL (6-20); Calcium 8.9 mg/dL (8.5-10.5); Carbon Dioxide 20 mmol/L (22-29); Chloride 106 mmol/L (98-107); Globulin 2.1 g/dL (1.3-4.6); Glomerular Filtration Rate 35.8 mL/min (90-130); Glucose 94 mg/dL (65-115); NT Pro B Type Natriuretic Pept 714 pg/mL (0-125); Osmolality Calculated 284 mOsm/kg (285-295); Sodium 136 mmol/L (136-145); Total Bilirubin 0.2 mg/dL (0.15-1.2); Total Protein 6.2 g/dL (6.6-8.7)
[2022-02-25 10:47] LABS: Creatine Phosphokinase 341 U/L (39-308)
[2022-03-06 08:52] LABS: Basophils # 0.1 10^3/uL (0.0-0.1); Basophils % 0.9 %; Eosinophils # 0.2 10^3/uL (0.0-0.8); Eosinophils % 3.6 %; Hematocrit 49.7 % (42.0-52.0); Hemoglobin 15.6 g/dL (11.7-16.6); Lymphocytes # 1.8 10^3/uL (0.8-4.8); Mean Corpuscular HGB Conc 31.4 g/dL (30.0-36.0); Mean Corpuscular Hemoglobin 26.8 pg (28.0-34.0); Mean Corpuscular Volume 85.4 fl (80-94); Mean Platelet Volume 10.7 fL (7.4-10.4); Monocytes # 0.5 10^3/uL (0.2-0.9); Monocytes % 7.9 %; Neutrophils # 3.89 10^3/uL (1.8-7.7); Neutrophils % 60.1 %; Nucleated Red Blood Cells % 0 %; Platelet Count 185 10^3/cmm (130-400); Red Blood Count 5.82 10^6/uL (4.1-5.3); White Blood Count 6.5 10^3/uL (4.0-10.0)
[2022-03-06 09:24] LABS: Ammonia 34 umol/L (16-60)
[2022-03-06 09:36] LABS: Alanine Aminotransferase 20 U/L (0-41); Albumin Level 4.9 g/dL (3.5-5.2); Alkaline Phosphatase 65 IU/L (40-130); Anion Gap 13.7 (5-19); Aspartate Amino Transferase 21 U/L (0-40); Blood Urea Nitrogen 22 mg/dL (6-20); Calcium 9.8 mg/dL (8.5-10.5); Carbon Dioxide 24 mmol/L (22-29); Chloride 103 mmol/L (98-107); Creatine Phosphokinase 177 U/L (39-308); Glomerular Filtration Rate 35.8 mL/min (90-130); Glucose 94 mg/dL (65-115); NT Pro B Type Natriuretic Pept 96 pg/mL (0-125); Osmolality Calculated 285 mOsm/kg (285-295); Potassium 4.7 mmol/L (3.5-5.1); Sodium 136 mmol/L (136-145); Total Bilirubin 0.2 mg/dL (0.15-1.2); Total Protein 6.9 g/dL (6.6-8.7)
[2022-03-22 09:47] LABS: Basophils % 0.4 %; Eosinophils # 0.2 10^3/uL (0.0-0.8); Eosinophils % 1.6 %; Hematocrit 49.7 % (42.0-52.0); Hemoglobin 15.7 g/dL (11.7-16.6); Lymphocytes # 1.5 10^3/uL (0.8-4.8); Lymphocytes % 14.5 %; Mean Corpuscular HGB Conc 31.6 g/dL (30.0-36.0); Mean Corpuscular Hemoglobin 26.8 pg (28.0-34.0); Mean Corpuscular Volume 84.8 fl (80-94); Mean Platelet Volume 10.6 fL (7.4-10.4); Monocytes # 0.9 10^3/uL (0.2-0.9); Monocytes % 8.5 %; Neutrophils # 7.51 10^3/uL (1.8-7.7); Neutrophils % 74.8 %; Nucleated Red Blood Cells % 0 %; Platelet Count 201 10^3/cmm (130-400); Red Blood Count 5.86 10^6/uL (4.1-5.3); Red Cell Distribution Width 16.2 % (12.1-15.1)
[2022-03-22 10:05] LABS: Ammonia 33 umol/L (16-60)
[2022-03-22 10:14] LABS: Alanine Aminotransferase 16 U/L (0-41); Albumin Level 4.5 g/dL (3.5-5.2); Alkaline Phosphatase 64 IU/L (40-130); Anion Gap 16.5 (5-19); Aspartate Amino Transferase 19 U/L (0-40); Blood Urea Nitrogen 18 mg/dL (6-20); Calcium 9.6 mg/dL (8.5-10.5); Carbon Dioxide 21 mmol/L (22-29); Chloride 105 mmol/L (98-107); Creatine Phosphokinase 183 U/L (39-308); Globulin 2.3 g/dL (1.3-4.6); Glomerular Filtration Rate 33.9 mL/min (90-130); Glucose 96 mg/dL (65-115); NT Pro B Type Natriuretic Pept 164 pg/mL (0-125); Osmolality Calculated 290 mOsm/kg (285-295); Potassium 3.5 mmol/L (3.5-5.1); Sodium 139 mmol/L (136-145); Total Bilirubin 0.4 mg/dL (0.15-1.2); Total Protein 6.8 g/dL (6.6-8.7)
[2022-03-26 07:36] LABS: Basophils # 0.1 10^3/uL (0.0-0.1); Basophils % 0.6 %; Eosinophils # 0.4 10^3/uL (0.0-0.8); Eosinophils % 4.6 %; Hematocrit 46.3 % (42.0-52.0); Hemoglobin 14.9 g/dL (11.7-16.6); Lymphocytes # 1.4 10^3/uL (0.8-4.8); Lymphocytes % 14.7 %; Mean Corpuscular HGB Conc 32.2 g/dL (30.0-36.0); Mean Corpuscular Hemoglobin 27.3 pg (28.0-34.0); Mean Platelet Volume 10.2 fL (7.4-10.4); Monocytes # 0.7 10^3/uL (0.2-0.9); Monocytes % 7.6 %; Neutrophils # 6.72 10^3/uL (1.8-7.7); Neutrophils % 72.3 %; Nucleated Red Blood Cells % 0 %; Platelet Count 223 10^3/cmm (130-400); Red Blood Count 5.45 10^6/uL (4.1-5.3); Red Cell Distribution Width 16.1 % (12.1-15.1); White Blood Count 9.3 10^3/uL (4.0-10.0)
[2022-03-26 07:54] LABS: Alanine Aminotransferase 32 U/L (0-41); Albumin Level 4.5 g/dL (3.5-5.2); Alkaline Phosphatase 67 IU/L (40-130); Ammonia 32 umol/L (16-60); Anion Gap 12.9 (5-19); Aspartate Amino Transferase 59 U/L (0-40); Blood Urea Nitrogen 20 mg/dL (6-20); Calcium 9.2 mg/dL (8.5-10.5); Carbon Dioxide 25 mmol/L (22-29); Chloride 102 mmol/L (98-107); Globulin 2.2 g/dL (1.3-4.6); Glomerular Filtration Rate 35.8 mL/min (90-130); Glucose 104 mg/dL (65-115); Osmolality Calculated 285 mOsm/kg (285-295); Potassium 3.9 mmol/L (3.5-5.1); Sodium 136 mmol/L (136-145); Total Bilirubin 0.5 mg/dL (0.15-1.2); Total Protein 6.7 g/dL (6.6-8.7)
[2022-03-26 15:11] LABS: Creatine Phosphokinase 1266 U/L (39-308)
[2022-04-10 08:04] LABS: Basophils # 0.1 10^3/uL (0.0-0.1); Basophils % 0.8 %; Eosinophils # 0.2 10^3/uL (0.0-0.8); Eosinophils % 2.6 %; Hematocrit 47.4 % (42.0-52.0); Hemoglobin 15.8 g/dL (11.7-16.6); Lymphocytes # 1.8 10^3/uL (0.8-4.8); Lymphocytes % 24.2 %; Mean Corpuscular HGB Conc 33.3 g/dL (30.0-36.0); Mean Corpuscular Hemoglobin 27.1 pg (28.0-34.0); Mean Corpuscular Volume 81.3 fl (80-94); Mean Platelet Volume 10.7 fL (7.4-10.4); Monocytes # 0.5 10^3/uL (0.2-0.9); Monocytes % 7.2 %; Neutrophils # 4.81 10^3/uL (1.8-7.7); Neutrophils % 64.9 %; Nucleated Red Blood Cells % 0 %; Platelet Count 270 10^3/cmm (130-400); Red Blood Count 5.83 10^6/uL (4.1-5.3); Red Cell Distribution Width 16.1 % (12.1-15.1); White Blood Count 7.4 10^3/uL (4.0-10.0)
[2022-04-10 08:26] LABS: Alanine Aminotransferase 21 U/L (0-41); Albumin Level 4.5 g/dL (3.5-5.2); Alkaline Phosphatase 64 IU/L (40-130); Anion Gap 16.1 (5-19); Aspartate Amino Transferase 22 U/L (0-40); Blood Urea Nitrogen 26 mg/dL (6-20); Calcium 9.4 mg/dL (8.5-10.5); Carbon Dioxide 20 mmol/L (22-29); Chloride 105 mmol/L (98-107); Creatine Phosphokinase 195 U/L (39-308); Globulin 2.2 g/dL (1.3-4.6); Glomerular Filtration Rate 33.9 mL/min (90-130); Glucose 109 mg/dL (65-115); Osmolality Calculated 289 mOsm/kg (285-295); Potassium 4.1 mmol/L (3.5-5.1); Sodium 137 mmol/L (136-145); Total Bilirubin 0.3 mg/dL (0.15-1.2); Total Protein 6.7 g/dL (6.6-8.7)
[2022-04-17 07:42] LABS: Basophils # 0.1 10^3/uL (0.0-0.1); Basophils % 0.8 %; Eosinophils # 0.2 10^3/uL (0.0-0.8); Eosinophils % 2.5 %; Hematocrit 47.4 % (42.0-52.0); Hemoglobin 15.5 g/dL (11.7-16.6); Lymphocytes # 1.9 10^3/uL (0.8-4.8); Lymphocytes % 30.5 %; Mean Corpuscular HGB Conc 32.7 g/dL (30.0-36.0); Mean Corpuscular Hemoglobin 27.2 pg (28.0-34.0); Mean Corpuscular Volume 83.2 fl (80-94); Mean Platelet Volume 10.6 fL (7.4-10.4); Monocytes # 0.6 10^3/uL (0.2-0.9); Monocytes % 8.8 %; Neutrophils # 3.64 10^3/uL (1.8-7.7); Neutrophils % 57.2 %; Nucleated Red Blood Cells % 0 %; Platelet Count 230 10^3/cmm (130-400); Red Cell Distribution Width 16.1 % (12.1-15.1); White Blood Count 6.4 10^3/uL (4.0-10.0)
[2022-04-17 07:50] LABS: Ammonia 31 umol/L (16-60)
[2022-04-17 07:51] LABS: Alanine Aminotransferase 13 U/L (0-41); Albumin Level 4.6 g/dL (3.5-5.2); Alkaline Phosphatase 65 IU/L (40-130); Anion Gap 13.9 (5-19); Aspartate Amino Transferase 19 U/L (0-40); Blood Urea Nitrogen 25 mg/dL (6-20); Calcium 9.3 mg/dL (8.5-10.5); Carbon Dioxide 21 mmol/L (22-29); Chloride 103 mmol/L (98-107); Creatine Phosphokinase 201 U/L (39-308); Globulin 2.1 g/dL (1.3-4.6); Glomerular Filtration Rate 35.8 mL/min (90-130); Glucose 95 mg/dL (65-115); Osmolality Calculated 282 mOsm/kg (285-295); Potassium 3.9 mmol/L (3.5-5.1); Sodium 134 mmol/L (136-145); Total Bilirubin 0.3 mg/dL (0.15-1.2); Total Protein 6.7 g/dL (6.6-8.7)
== END 2022-04-17 23:59 | disposition home or self-care (01) ==
LOC: LAB 06:53
PROVIDERS: PCP Family Medicine; Visit Provider Family Medicine
DX: M62.82 Rhabdomyolysis (principal); N17.0 Acute kidney failure with tubular necrosis; E72.20 Disorder of urea cycle metabolism, unspecified; I25.118 Atherosclerotic heart disease of native coronary artery with other forms of angina pectoris; R60.1 Generalized edema; I51.9 Heart disease, unspecified; Z12.5 Encounter for screening for malignant neoplasm of prostate; I10 Essential (primary) hypertension
CPT/HCPCS: 36415; 80053; 82140; 82550; 83880; 85025; 88112

== ENCOUNTER 2022-05-03 07:04 | Outpatient (CLI) | payer MEDICARE, MEDICAID, SELFPAY ==
[2022-05-03 07:45] LABS: Basophils % 0.5 %; Eosinophils # 0.3 10^3/uL (0.0-0.8); Eosinophils % 3.3 %; Hemoglobin 15.3 g/dL (11.7-16.6); Lymphocytes # 1.9 10^3/uL (0.8-4.8); Lymphocytes % 25.2 %; Mean Corpuscular HGB Conc 32.6 g/dL (30.0-36.0); Mean Corpuscular Hemoglobin 27.7 pg (28.0-34.0); Mean Corpuscular Volume 85.1 fl (80-94); Mean Platelet Volume 10.3 fL (7.4-10.4); Monocytes # 0.6 10^3/uL (0.2-0.9); Monocytes % 7.4 %; Neutrophils # 4.79 10^3/uL (1.8-7.7); Neutrophils % 63.3 %; Nucleated Red Blood Cells % 0 %; Platelet Count 144 10^3/cmm (130-400); Red Blood Count 5.52 10^6/uL (4.1-5.3); White Blood Count 7.6 10^3/uL (4.0-10.0)
[2022-05-03 07:59] LABS: Ammonia 22 umol/L (16-60)
[2022-05-03 08:05] LABS: Alanine Aminotransferase 18 U/L (0-41); Albumin Level 4.2 g/dL (3.5-5.2); Alkaline Phosphatase 63 IU/L (40-130); Aspartate Amino Transferase 25 U/L (0-40); Blood Urea Nitrogen 24 mg/dL (6-20); Calcium 9.3 mg/dL (8.5-10.5); Carbon Dioxide 19 mmol/L (22-29); Chloride 105 mmol/L (98-107); Creatine Phosphokinase 216 U/L (39-308); Globulin 2.3 g/dL (1.3-4.6); Glomerular Filtration Rate 40.5 mL/min (90-130); Glucose 107 mg/dL (65-115); Osmolality Calculated 289 mOsm/kg (285-295); Sodium 137 mmol/L (136-145); Total Bilirubin 0.3 mg/dL (0.15-1.2); Total Protein 6.5 g/dL (6.6-8.7)
[2022-05-03 08:10] LABS: Anion Gap 17.3 (5-19); Potassium 4.3 mmol/L (3.5-5.1)
== END 2022-05-03 07:05 | disposition home or self-care (01) ==
PROVIDERS: PCP Family Medicine; Visit Provider Family Medicine
DX: E74.04 McArdle disease (principal)
CPT/HCPCS: 36415; 80053; 82140; 82550; 85025

== ENCOUNTER 2022-05-17 08:52 | Outpatient (CLI) | payer MEDICARE, MEDICAID, SELFPAY ==
--- NOTE | 2022-05-17 08:59 | CT_ITS ---
WS: [id number] CT ABDOMEN AND PELVIS NONCONTRAST HISTORY: FLANK PAIN, RIGHT TECHNIQUE: Imaging performed through the abdomen and pelvis. Coronal and sagittal reformats are submi tted. All CT scans at [facility] use at least one of these dose optimization techniques: auto mated exposure control; mA and/or kV adjustment per patient size (includes targeted exams where dose is matched to clinical indication); or iterative reconstruction. DLP: 1027.53 mGy.cm COMPARISON: 05/27/2019 Lower thorax: There are 2 subcentimeter nodules at the LEFT lung base which are stable since 2014. He art normal size. No hiatal hernia. Liver: Normal size liver. No mass or bile duct dilatation. Gallbladder: Normal gallbladder. Pancreas: Normal size and attenuation. Normal pancreatic duct. No pancreatitis or mass. Spleen: Normal. Adrenal glands: Mild nodularity RIGHT adrenal gland. 15 mm LEFT adrenal adenoma. Right kidney: Normal size kidney with no mass or hydronephrosis. Left kidney: Normal size kidney with no mass or hydronephrosis. Aorta: Mild atherosclerosis abdominal aorta with no aneurysm. No free fluid or free air. There are small retrocrural lymph nodes which were present in 2014. No ret roperitoneal or mesenteric adenopathy. Small pelvic lymph nodes. GI tract: Nondistended stomach. No small bowel obstruction or wall thickening. The appendix is normal size. There is an appendicolith within the base of the appendix which raises the possibility of appe ndicitis. No diverticular disease. Abdominal wall: Small umbilical hernia contains fat only. Pelvis: Normal. Osseous structures: Unremarkable. CT/CT kidney stone [id number] IMPRESSION: 1. No renal obstruction or calcification. 2. No evidence for appendicitis. Appendicoliths are present placement patient at increased risk for developing appendicitis. 3. No ascites. 4. Small LEFT adrenal adenoma.
[2022-05-17 09:38] LABS: Basophils % 0.5 %; Eosinophils # 0.2 10^3/uL (0.0-0.8); Eosinophils % 2.7 %; Hematocrit 51.6 % (42.0-52.0); Hemoglobin 15.6 g/dL (11.7-16.6); Lymphocytes % 23.7 %; Mean Corpuscular HGB Conc 30.2 g/dL (30.0-36.0); Mean Corpuscular Hemoglobin 27.3 pg (28.0-34.0); Mean Corpuscular Volume 90.4 fl (80-94); Mean Platelet Volume 10.2 fL (7.4-10.4); Monocytes # 0.7 10^3/uL (0.2-0.9); Monocytes % 8.4 %; Neutrophils # 5.45 10^3/uL (1.8-7.7); Neutrophils % 64.5 %; Nucleated Red Blood Cells % 0 %; Platelet Count 219 10^3/cmm (130-400); Red Blood Count 5.71 10^6/uL (4.1-5.3); Red Cell Distribution Width 15.5 % (12.1-15.1); White Blood Count 8.5 10^3/uL (4.0-10.0)
[2022-05-17 09:56] LABS: Ammonia 42 umol/L (16-60)
[2022-05-17 10:09] LABS: Alanine Aminotransferase 15 U/L (0-41); Albumin Level 4.7 g/dL (3.5-5.2); Alkaline Phosphatase 62 IU/L (40-130); Aspartate Amino Transferase 21 U/L (0-40); Blood Urea Nitrogen 22 mg/dL (6-20); Calcium 9.7 mg/dL (8.5-10.5); Carbon Dioxide 22 mmol/L (22-29); Chloride 105 mmol/L (98-107); Creatine Phosphokinase 198 U/L (39-308); Globulin 1.8 g/dL (1.3-4.6); Glomerular Filtration Rate 35.8 mL/min (90-130); Glucose 87 mg/dL (65-115); Osmolality Calculated 291 mOsm/kg (285-295); Sodium 139 mmol/L (136-145); Total Bilirubin 0.4 mg/dL (0.15-1.2); Total Protein 6.5 g/dL (6.6-8.7)
== END 2022-05-17 08:53 | disposition home or self-care (01) ==
PROVIDERS: PCP Family Medicine; Visit Provider Family Medicine
DX: E74.04 McArdle disease (principal); D35.02 Benign neoplasm of left adrenal gland; R10.9 Unspecified abdominal pain
CPT/HCPCS: 36415; 74176; 80053; 82140; 82550; 85025

== ENCOUNTER 2022-05-20 09:38 | Emergency (ER) | payer MEDICARE, MEDICAID, SELFPAY ==
[2022-05-20 09:47] VITALS: BP 115/74; PULSE 73; RESP 16; TEMP 36.4; O2SAT 95; BMI 23.7
--- NOTE | 2022-05-20 09:59 | XR_ITS ---
WS: [id number] Exam: XR finger RT min 2V [id number] Date/Time of Exam: 05/20/2022 10:01 AM Reason For Exam: trauma-PIP joint; 4th finger Severely comminuted fracture of the distal end of the proximal phalanx of the fourth finger with dors al displacement and dislocation of fracture fragments. Extensive soft tissue laceration. This is an o pen fracture. There may be a tiny cortical chip fracture at the base of the proximal end of the middl e phalanx of the fourth finger also. XR/XR finger RT min 2V [id number] IMPRESSION: 1. Severely comminuted displaced fracture of the distal end of the proximal pha lanx of the ring finger. There is complete disruption of the PIP joint. Extensi ve soft tissue laceration and edema. 2. There may be a small chip fracture at the base of the middle phalanx of the same finger.
--- NOTE | 2022-05-20 10:03 | W.ED.UPPEXIN ---
Documented by User: KIZZY Reeves 05/20/22 12:51 HPI - Extremity Injury (Upper) General: Chief Complaint: Wound/Laceration Stated Complaint: right hand injury Time Seen by Provider: 05/20/22 09:43 Source: patient Mode of arrival: ambulatory Limitations: no limitations History of Present Illness: Patient is a nice 46-year-old male who presents to ED today for evaluation of right finger trauma. Patient states just prior to arrival he lacerated his right fourth digit with a table saw. Tetanus is not up-to-date. MD complaint: injury to: right and finger Onset (ago): hour(s) Other Extremity Injury: Right: fingers Place: home Severity: moderate Context: laceration Associated symptoms: Reports no associated symptoms Review of Systems GI: Denies: nausea or vomiting Musc: Reports: extremity pain (R 4th finger) and joint pain (R ring PIP joint) Neuro: Denies: numbness in extremities or sensory changes PFSH ED PFSH: Medical History Acute depression Acute non-recurrent pansinusitis Acute on chronic renal insufficiency Anxiety Arteriosclerotic heart disease Chronic kidney disease, unspecified Chronic rhinitis CKD (chronic kidney disease) stage 3, GFR 30-59 ml/min Closed displaced fracture of distal phalanx of toe of left foot Common migraine without intractability Edema, unspecified Essential (primary) hypertension GERD (gastroesophageal reflux disease) 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, unspecified 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 Bay disease Metabolic encephalopathy Obstructive sleep apnea Shortness of breath Tremor, unspecified Venous insufficiency (chronic) (peripheral) Vitamin D deficiency, unspecified Surgical History H/O angioplasty H/O arthroscopic knee surgery H/O heart surgery Hx of tonsillectomy S/P hemodialysis catheter insertion Family History Mother , AT AGE 55 Hypertension Diabetes [place]'s disease Father , AT AGE 55 Alcoholism Social History Smoking and tobacco status: current every day smoker cigarettes Packs smoked per day: 0.5 Alcohol intake: current Alcohol intake frequency: holidays/special occasions only Marital status: Current occupational status: disabled History of recent travel: No Physical Exam Const: COMMON NORMALS: no acute distress, average body habitus, no limitations, healthy appearing, alert and well nourished GENERAL APPEARANCE: cooperative Extremity: RIGHT UPPER EXTREMITY: Yes hand & digits OTHER: pt has laceration overlying his dorsal R 4th PIP with obvious extensor tendon laceration and bony involvement; bleeding controlled; sensory intact; normal cap refill Neuro: COMMON NORMALS: no sensory deficits noted SENSORIUM/ORIENTATION: Yes alert Course Vital Signs: Vital signs: Vital Signs Temperature 97.6 F 05/20/22 09:47 Pulse Rate 73 05/20/22 09:47 Respiratory Rate 17 05/20/22 12:28 Blood Pressure 115/74 05/20/22 09:47 Pulse Oximetry 95 05/20/22 09:47 MDM - Extremity Injury (Upper) Medical Decision Making Patient has an open severely comminuted displaced fracture of his right ring finger PIP joint with complete extensor tendon laceration. Sensory and cap refill remain intact. I originally spoke to Dr. Glynn La, hand surgeon at [facility], who recommended ER to ER transfer however after contacting their ER department they were on divert. I contacted [facility] who also said they are on forced open and would not be able to accept patient. I was then on the phone with a Dr. Mas/hand surgery at [facility] when Dr. La called back and would like patient to come to the [facility] surgery center for surgery today. Patient's tetanus was updated. He was given IM Ancef. Wound was extensively irrigated and splinted. Last NPO was yesterday. He will be instructed to continue NPO status and will go by private vehicle ( driving) straight to the orthopedic clinic where Dr. La will be waiting to perform surgery. Patient disposition will be transfer by POV. Lab Data Radiology Impressions Finger X-Ray 05/20/22 09:59 IMPRESSION: 1. Severely comminuted displaced fracture of the distal end of the proximal phalanx of the ring finger. There is complete disruption of the PIP joint. Extensive soft tissue laceration and edema. 2. There may be a small chip fracture at the base of the middle phalanx of the same finger. Discharge Plan Discharge Patient Disposition: Xfer Short-Term Hosp Clinical Impression: Open fracture of phalanx of right ring finger Qualifiers: Encounter type: initial encounter Phalanx: proximal Fracture alignment: displaced Qualified Code(s): S62.614B - Displaced fracture of proximal phalanx of right ring finger, initial encounter for open fracture Condition: Stable Referrals: Hina Zaragoza DO [Primary Care Provider] - Activity Restrictions/Additional Instructions: As we discussed you have strict instructions to go straight to the [facility] (preop/surgery side) for scheduled surgery with Dr. Glynn La, hand surgery, today. Address is [address] [place] [address] [facility] [place] [address]. NOTHING TO EAT/DRINK. Coding Level of Care Code ED Turner Splitter Machine Operator for Chg Fwd Exam Expanded Problem Focused Documented by User: Rd Paul DO 05/20/22 15:28 HPI - Extremity Injury (Upper) General: Chief Complaint: Wound/Laceration Stated Complaint: right hand injury Time Seen by Provider: 05/20/22 09:43 PFSH ED PFSH: Medical History Acute depression Acute non-recurrent pansinusitis Acute on chronic renal insufficiency Anxiety Arteriosclerotic heart disease Chronic kidney disease, unspecified Chronic rhinitis CKD (chronic kidney disease) stage 3, GFR 30-59 ml/min Closed displaced fracture of distal phalanx of toe of left foot Common migraine without intractability Edema, unspecified Essential (primary) hypertension GERD (gastroesophageal reflux disease) 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, unspecified 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 Bay disease Metabolic encephalopathy Obstructive sleep apnea Shortness of breath Tremor, unspecified Venous insufficiency (chronic) (peripheral) Vitamin D deficiency, unspecified Surgical History H/O angioplasty H/O arthroscopic knee surgery H/O heart surgery Hx of tonsillectomy S/P hemodialysis catheter insertion Family History Mother , AT AGE 55 Hypertension Diabetes [place]'s disease Father , AT AGE 55 Alcoholism Social History Smoking and tobacco status: current every day smoker cigarettes Packs smoked per day: 0.5 Alcohol intake: current Alcohol intake frequency: holidays/special occasions only Marital status: Current occupational status: disabled History of recent travel: No Course Vital Signs: Vital signs: Vital Signs Temperature 97.6 F 05/20/22 09:47 Pulse Rate 73 05/20/22 09:47 Respiratory Rate 17 05/20/22 12:28 Blood Pressure 115/74 05/20/22 09:47 Pulse Oximetry 95 05/20/22 09:47 MDM - Extremity Injury (Upper) Medical Decision Making Patient has an open severely comminuted displaced fracture of his right ring finger PIP joint with complete extensor tendon laceration. Sensory and cap refill remain intact. I originally spoke to Dr. Glynn La, hand surgeon at [facility], who recommended ER to ER transfer however after contacting their ER department they were on divert. I contacted [facility] who also said they are on forced open and would not be able to accept patient. I was then on the phone with a Dr. Mas/hand surgery at [facility] when Dr. La called back and would like patient to come to the [facility] surgery center for surgery today. Patient's tetanus was updated. He was given IM Ancef. Wound was extensively irrigated and splinted. Last NPO was yesterday. He will be instructed to continue NPO status and will go by private vehicle ( driving) straight to the orthopedic clinic where Dr. La will be waiting to perform surgery. Patient disposition will be transfer by POV. Chart reviewed and patient discussed with midlevel. Agree with assessment and plan. Lab Data Radiology Impressions Finger X-Ray 05/20/22 09:59 IMPRESSION: 1. Severely comminuted displaced fracture of the distal end of the proximal phalanx of the ring finger. There is complete disruption of the PIP joint. Extensive soft tissue laceration and edema. 2. There may be a small chip fracture at the base of the middle phalanx of the same finger. Discharge Plan Discharge Patient Disposition: Xfer Short-Term Hosp Clinical Impression: Open fracture of phalanx of right ring finger Qualifiers: Encounter type: initial encounter Phalanx: proximal Fracture alignment: displaced Qualified Code(s): S62.614B - Displaced fracture of proximal phalanx of right ring finger, initial encounter for open fracture Condition: Stable Referrals: Hina Zaragoza DO [Primary Care Provider] - Activity Restrictions/Additional Instructions: As we discussed you have strict instructions to go straight to the [facility] (preop/surgery side) for scheduled surgery with Dr. Glynn La, hand surgery, today. Address is [address] [place] [id number]. NOTHING TO EAT/DRINK. Coding Level of Care Code ED Turner Splitter Machine Operator for Chg Fwd Exam Expanded Problem Focused
[2022-05-20] MEDS: ceFAZolin 1,000 mg SDV 1000 MG IM (10:27)
[2022-05-20 10:28] VITALS: RESP 18
[2022-05-20] MEDS: tetanus-dipt-pertussis 0.5 mL SDV IM (10:28)
[2022-05-20] MEDS: morphine 4 mg/mL SDV 1 mL IM ×2 (10:28→12:28)
[2022-05-20 12:28] VITALS: RESP 17
== END 2022-05-20 12:45 | disposition short-term general hospital (02) ==
PROVIDERS: Emergency Provider Physician Assistant; PCP Family Medicine
DX: S62.614B Displaced fracture of proximal phalanx of right ring finger, initial encounter for open fracture (principal); I12.9 Hypertensive chronic kidney disease with stage 1 through stage 4 chronic kidney disease, or unspecified chronic kidney disease; N18.30 Chronic kidney disease, stage 3 unspecified; F17.210 Nicotine dependence, cigarettes, uncomplicated; W27.0XXA Contact with workbench tool, initial encounter; Z23 Encounter for immunization
CPT/HCPCS: 73140; 90471; 90715; 96372; 99285; A6446; J0690; J2270

== ENCOUNTER 2022-05-23 07:02 | Outpatient (CLI) | payer MEDICARE, MEDICAID, SELFPAY ==
[2022-05-23 07:29] LABS: Basophils # 0.1 10^3/uL (0.0-0.1); Basophils % 1.1 %; Eosinophils # 0.2 10^3/uL (0.0-0.8); Eosinophils % 2.8 %; Hematocrit 46.8 % (42.0-52.0); Hemoglobin 15.4 g/dL (11.7-16.6); Lymphocytes # 1.7 10^3/uL (0.8-4.8); Lymphocytes % 25.7 %; Mean Corpuscular HGB Conc 32.9 g/dL (30.0-36.0); Mean Corpuscular Hemoglobin 27.5 pg (28.0-34.0); Mean Corpuscular Volume 83.6 fl (80-94); Mean Platelet Volume 10.3 fL (7.4-10.4); Monocytes # 0.6 10^3/uL (0.2-0.9); Monocytes % 9.3 %; Neutrophils # 3.91 10^3/uL (1.8-7.7); Neutrophils % 60.8 %; Nucleated Red Blood Cells % 0 %; Platelet Count 207 10^3/cmm (130-400); Red Cell Distribution Width 15.2 % (12.1-15.1); White Blood Count 6.4 10^3/uL (4.0-10.0)
[2022-05-23 07:50] LABS: Ammonia 29 umol/L (16-60)
[2022-05-23 08:06] LABS: Alanine Aminotransferase 8 U/L (0-41); Albumin Level 4.3 g/dL (3.5-5.2); Alkaline Phosphatase 50 IU/L (40-130); Aspartate Amino Transferase 15 U/L (0-40); Blood Urea Nitrogen 17 mg/dL (6-20); Calcium 9.1 mg/dL (8.5-10.5); Carbon Dioxide 23 mmol/L (22-29); Chloride 106 mmol/L (98-107); Creatine Phosphokinase 98 U/L (39-308); Globulin 2.1 g/dL (1.3-4.6); Glomerular Filtration Rate 40.5 mL/min (90-130); Glucose 97 mg/dL (65-115); Osmolality Calculated 291 mOsm/kg (285-295); Sodium 140 mmol/L (136-145); Total Bilirubin 0.3 mg/dL (0.15-1.2); Total Protein 6.4 g/dL (6.6-8.7)
[2022-05-23 08:12] LABS: Anion Gap 14.8 (5-19); Potassium 3.8 mmol/L (3.5-5.1)
== END 2022-05-23 07:03 | disposition home or self-care (01) ==
PROVIDERS: PCP Family Medicine; Visit Provider Family Medicine
DX: E74.04 McArdle disease (principal)
CPT/HCPCS: 80053; 82140; 82550; 85025

== ENCOUNTER 2022-06-03 07:09 | Outpatient (CLI) | payer MEDICARE, MEDICAID, SELFPAY ==
[2022-06-03 07:30] LABS: Basophils # 0.1 10^3/uL (0.0-0.1); Basophils % 0.6 %; Eosinophils # 0.3 10^3/uL (0.0-0.8); Eosinophils % 3.4 %; Hematocrit 49.4 % (42.0-52.0); Hemoglobin 16.3 g/dL (11.7-16.6); Lymphocytes # 2.2 10^3/uL (0.8-4.8); Lymphocytes % 26.5 %; Mean Corpuscular Hemoglobin 27.7 pg (28.0-34.0); Mean Platelet Volume 10.5 fL (7.4-10.4); Monocytes # 0.7 10^3/uL (0.2-0.9); Neutrophils # 4.98 10^3/uL (1.8-7.7); Neutrophils % 61.1 %; Nucleated Red Blood Cells % 0 %; Platelet Count 188 10^3/cmm (130-400); Red Blood Count 5.88 10^6/uL (4.1-5.3); Red Cell Distribution Width 15.2 % (12.1-15.1); White Blood Count 8.2 10^3/uL (4.0-10.0)
[2022-06-03 07:47] LABS: Ammonia 16 umol/L (16-60)
[2022-06-03 07:49] LABS: Alanine Aminotransferase 21 U/L (0-41); Albumin Level 4.5 g/dL (3.5-5.2); Alkaline Phosphatase 67 IU/L (40-130); Aspartate Amino Transferase 24 U/L (0-40); Blood Urea Nitrogen 18 mg/dL (6-20); Calcium 9.3 mg/dL (8.5-10.5); Carbon Dioxide 26 mmol/L (22-29); Chloride 102 mmol/L (98-107); Creatine Phosphokinase 155 U/L (39-308); Globulin 2.2 g/dL (1.3-4.6); Glomerular Filtration Rate 35.7 mL/min (90-130); Glucose 113 mg/dL (65-115); Osmolality Calculated 295 mOsm/kg (285-295); Sodium 141 mmol/L (136-145); Total Bilirubin 0.3 mg/dL (0.15-1.2); Total Protein 6.7 g/dL (6.6-8.7)
== END 2022-06-03 07:10 | disposition home or self-care (01) ==
PROVIDERS: PCP Family Medicine; Visit Provider Family Medicine
DX: E74.04 McArdle disease (principal)
CPT/HCPCS: 36415; 80053; 82140; 82550; 85025

== ENCOUNTER 2022-06-19 08:18 | Outpatient (CLI) | payer MEDICARE, MEDICAID, SELFPAY ==
[2022-06-19 08:44] LABS: Basophils # 0.1 10^3/uL (0.0-0.1); Basophils % 0.8 %; Eosinophils # 0.2 10^3/uL (0.0-0.8); Eosinophils % 3.6 %; Hematocrit 52.7 % (42.0-52.0); Hemoglobin 16.3 g/dL (11.7-16.6); Lymphocytes # 1.9 10^3/uL (0.8-4.8); Lymphocytes % 29.3 %; Mean Corpuscular HGB Conc 30.9 g/dL (30.0-36.0); Mean Corpuscular Hemoglobin 27.5 pg (28.0-34.0); Mean Corpuscular Volume 88.9 fl (80-94); Mean Platelet Volume 10.5 fL (7.4-10.4); Monocytes # 0.5 10^3/uL (0.2-0.9); Monocytes % 7.2 %; Neutrophils # 3.79 10^3/uL (1.8-7.7); Neutrophils % 58.9 %; Nucleated Red Blood Cells % 0 %; Platelet Count 205 10^3/cmm (130-400); Red Blood Count 5.93 10^6/uL (4.1-5.3); Red Cell Distribution Width 14.8 % (12.1-15.1); White Blood Count 6.4 10^3/uL (4.0-10.0)
[2022-06-19 09:01] LABS: Ammonia 30 umol/L (16-60)
[2022-06-19 09:20] LABS: Alanine Aminotransferase 15 U/L (0-41); Albumin Level 4.4 g/dL (3.5-5.2); Alkaline Phosphatase 56 U/L (40-130); Blood Urea Nitrogen 15 mg/dL (6-20); Calcium 9.6 mg/dL (8.5-10.5); Carbon Dioxide 24 mmol/L (22-29); Chloride 104 mmol/L (98-107); Creatine Phosphokinase 162 U/L (39-308); Globulin 2.2 g/dL (1.3-4.6); Glomerular Filtration Rate 33.7 mL/min (90-130); Glucose 91 mg/dL (65-115); Osmolality Calculated 288 mOsm/kg (285-295); Sodium 139 mmol/L (136-145); Total Bilirubin 0.3 mg/dL (0.15-1.2); Total Protein 6.6 g/dL (6.6-8.7)
[2022-06-19 09:27] LABS: Aspartate Amino Transferase 20 U/L (0-40)
[2022-06-21 11:57] LABS: NT Pro B Type Natriuretic Pept 212 pg/mL (0-125)
== END 2022-06-19 08:19 | disposition home or self-care (01) ==
LOC: LAB 08:22
PROVIDERS: Nurse Practitioner Family; PCP Family Medicine; Visit Provider Family Medicine
DX: E74.04 McArdle disease (principal); I50.33 Acute on chronic diastolic (congestive) heart failure
CPT/HCPCS: 36415; 80053; 82140; 82550; 83880; 85025

== ENCOUNTER → 2022-06-20 12:37 | Outpatient (BNVA) | payer MEDICARE, MEDICAID, SELFPAY | PROVIDERS: PCP Family Medicine; Visit Provider Nurse Practitioner Family | DX: I13.0 Hypertensive heart and chronic kidney disease with heart failure and stage 1 through stage 4 chronic kidney disease, or unspecified chronic kidney disease (principal); N18.30 Chronic kidney disease, stage 3 unspecified; I50.33 Acute on chronic diastolic (congestive) heart failure; F17.210 Nicotine dependence, cigarettes, uncomplicated; I25.10 Atherosclerotic heart disease of native coronary artery without angina pectoris | CPT/HCPCS: 99214 ==

== ENCOUNTER 2022-07-09 | Outpatient (RCR) | payer MEDICARE, SELFPAY | END 2022-07-26 23:59 | disposition home or self-care (01) | LOC: SOT | PROVIDERS: PCP Family Medicine; Visit Provider Orthopaedic Surgery | DX: S66.124A Laceration of flexor muscle, fascia and tendon of right ring finger at wrist and hand level, initial encounter (principal); W31.2XXA Contact with powered woodworking and forming machines, initial encounter | CPT/HCPCS: 97018; 97022; 97110; 97140; 97166 ==

== ENCOUNTER 2022-07-17 12:58 | Outpatient (CLI) | payer MEDICARE, MEDICAID, SELFPAY ==
[2022-07-17 13:45] LABS: Basophils # 0.1 10^3/uL (0.0-0.1); Eosinophils # 0.2 10^3/uL (0.0-0.8); Hematocrit 50.7 % (42.0-52.0); Hemoglobin 16.2 g/dL (11.7-16.6); Lymphocytes # 2.1 10^3/uL (0.8-4.8); Lymphocytes % 30.4 %; Mean Corpuscular Hemoglobin 27.5 pg (28.0-34.0); Mean Corpuscular Volume 85.9 fl (80-94); Monocytes # 0.5 10^3/uL (0.2-0.9); Monocytes % 6.6 %; Neutrophils # 4.06 10^3/uL (1.8-7.7); Neutrophils % 58.7 %; Nucleated Red Blood Cells % 0 %; Platelet Count 236 10^3/cmm (130-400); Red Cell Distribution Width 14.9 % (12.1-15.1); White Blood Count 6.9 10^3/uL (4.0-10.0)
[2022-07-17 13:55] LABS: Ammonia 34 umol/L (16-60)
[2022-07-17 14:07] LABS: Alanine Aminotransferase 17 U/L (0-41); Albumin Level 4.6 g/dL (3.5-5.2); Alkaline Phosphatase 63 U/L (40-130); Anion Gap 13.9 (5-19); Aspartate Amino Transferase 19 U/L (0-40); Blood Urea Nitrogen 25 mg/dL (6-20); Calcium 9.8 mg/dL (8.5-10.5); Carbon Dioxide 27 mmol/L (22-29); Chloride 100 mmol/L (98-107); Creatine Phosphokinase 177 U/L (39-308); Globulin 2.3 g/dL (1.3-4.6); Glomerular Filtration Rate 30.4 mL/min (90-130); Glucose 99 mg/dL (65-115); Osmolality Calculated 288 mOsm/kg (285-295); Potassium 3.9 mmol/L (3.5-5.1); Sodium 137 mmol/L (136-145); Total Bilirubin 0.4 mg/dL (0.15-1.2); Total Protein 6.9 g/dL (6.6-8.7)
== END 2022-07-17 12:59 | disposition home or self-care (01) ==
PROVIDERS: PCP Family Medicine; Visit Provider Family Medicine
DX: E74.04 McArdle disease (principal)
CPT/HCPCS: 80053; 82140; 82550; 85025

== ENCOUNTER 2022-07-27 06:00 | Outpatient (RCR) | payer MEDICARE, MEDICAID, SELFPAY | END 2022-08-26 23:59 | disposition home or self-care (01) | LOC: SOT 06:00 | PROVIDERS: PCP Family Medicine; Visit Provider Orthopaedic Surgery | DX: S68.61 Complete traumatic transphalangeal amputation of other and unspecified finger(s) (principal); X58.XXXD Exposure to other specified factors, subsequent encounter | CPT/HCPCS: 97018; 97110; 97140; 97760 ==

== ENCOUNTER 2022-08-12 08:37 | Outpatient (CLI) | payer MEDICARE, MEDICAID, SELFPAY ==
[2022-08-12 09:11] LABS: Basophils % 0.7 %; Eosinophils # 0.2 10^3/uL (0.0-0.8); Hematocrit 48.7 % (42.0-52.0); Hemoglobin 15.7 g/dL (11.7-16.6); Lymphocytes # 1.4 10^3/uL (0.8-4.8); Lymphocytes % 23.9 %; Mean Corpuscular HGB Conc 32.2 g/dL (30.0-36.0); Monocytes # 0.5 10^3/uL (0.2-0.9); Monocytes % 7.9 %; Neutrophils # 3.84 10^3/uL (1.8-7.7); Neutrophils % 64.2 %; Nucleated Red Blood Cells % 0 %; Platelet Count 161 10^3/cmm (130-400); Red Cell Distribution Width 15.3 % (12.1-15.1)
[2022-08-12 09:37] LABS: Ammonia 15 umol/L (16-60)
[2022-08-12 09:40] LABS: Alanine Aminotransferase 18 U/L (0-41); Albumin Level 4.7 g/dL (3.5-5.2); Alkaline Phosphatase 55 U/L (40-130); Anion Gap 10.7 (5-19); Aspartate Amino Transferase 22 U/L (0-40); Blood Urea Nitrogen 26 mg/dL (6-20); Calcium 9.6 mg/dL (8.5-10.5); Carbon Dioxide 28 mmol/L (22-29); Chloride 102 mmol/L (98-107); Creatine Phosphokinase 250 U/L (39-308); Globulin 1.9 g/dL (1.3-4.6); Glomerular Filtration Rate 35.7 mL/min (90-130); Glucose 95 mg/dL (65-115); Osmolality Calculated 287 mOsm/kg (285-295); Potassium 4.7 mmol/L (3.5-5.1); Sodium 136 mmol/L (136-145); Total Bilirubin 0.5 mg/dL (0.15-1.2); Total Protein 6.6 g/dL (6.6-8.7)
== END 2022-08-12 08:38 | disposition home or self-care (01) ==
PROVIDERS: PCP Family Medicine; Visit Provider Family Medicine
DX: M62.82 Rhabdomyolysis (principal)
CPT/HCPCS: 80053; 82140; 82550; 85025

== ENCOUNTER 2022-08-23 08:09 | Outpatient (CLI) | payer MEDICARE, MEDICAID, SELFPAY ==
[2022-08-23 08:52] LABS: Basophils # 0.1 10^3/uL (0.0-0.1); Basophils % 0.9 %; Eosinophils # 0.2 10^3/uL (0.0-0.8); Eosinophils % 2.4 %; Hematocrit 48.3 % (42.0-52.0); Hemoglobin 15.4 g/dL (11.7-16.6); Lymphocytes # 1.7 10^3/uL (0.8-4.8); Lymphocytes % 23.9 %; Mean Corpuscular HGB Conc 31.9 g/dL (30.0-36.0); Mean Corpuscular Hemoglobin 28.1 pg (28.0-34.0); Monocytes # 0.5 10^3/uL (0.2-0.9); Monocytes % 7.2 %; Neutrophils % 65.3 %; Nucleated Red Blood Cells % 0 %; Platelet Count 198 10^3/cmm (130-400); Red Blood Count 5.49 10^6/uL (4.1-5.3); Red Cell Distribution Width 15.5 % (12.1-15.1)
[2022-08-23 09:07] LABS: Ammonia 41 umol/L (16-60)
[2022-08-23 09:23] LABS: Creatine Phosphokinase 368 U/L (39-308)
[2022-08-23 11:24] LABS: Alanine Aminotransferase 20 U/L (0-41); Albumin Level 4.4 g/dL (3.5-5.2); Alkaline Phosphatase 51 U/L (40-130); Anion Gap 17.3 (5-19); Aspartate Amino Transferase 26 U/L (0-40); Blood Urea Nitrogen 23 mg/dL (6-20); Calcium 9.2 mg/dL (8.5-10.5); Carbon Dioxide 23 mmol/L (22-29); Chloride 102 mmol/L (98-107); Glucose 87 mg/dL (65-115); Osmolality Calculated 289 mOsm/kg (285-295); Potassium 4.3 mmol/L (3.5-5.1); Sodium 138 mmol/L (136-145); Total Bilirubin 0.4 mg/dL (0.15-1.2); Total Protein 6.4 g/dL (6.6-8.7)
== END 2022-08-23 08:10 | disposition home or self-care (01) ==
PROVIDERS: PCP Family Medicine; Visit Provider Family Medicine
DX: M62.82 Rhabdomyolysis (principal)
CPT/HCPCS: 80053; 82140; 82550; 85025

== ENCOUNTER 2022-08-26 09:12 | Outpatient (CLI) | payer MEDICARE, MEDICAID, SELFPAY ==
[2022-08-26 09:45] LABS: Basophils % 0.7 %; Eosinophils # 0.2 10^3/uL (0.0-0.8); Hematocrit 46.6 % (42.0-52.0); Hemoglobin 15.1 g/dL (11.7-16.6); Lymphocytes # 1.7 10^3/uL (0.8-4.8); Lymphocytes % 29.5 %; Mean Corpuscular HGB Conc 32.4 g/dL (30.0-36.0); Mean Corpuscular Hemoglobin 28.4 pg (28.0-34.0); Mean Corpuscular Volume 87.8 fl (80-94); Mean Platelet Volume 10.3 fL (7.4-10.4); Monocytes # 0.5 10^3/uL (0.2-0.9); Monocytes % 8.1 %; Neutrophils # 3.27 10^3/uL (1.8-7.7); Neutrophils % 58.5 %; Nucleated Red Blood Cells % 0 %; Platelet Count 180 10^3/cmm (130-400); Red Blood Count 5.31 10^6/uL (4.1-5.3); Red Cell Distribution Width 15.7 % (12.1-15.1); White Blood Count 5.6 10^3/uL (4.0-10.0)
[2022-08-26 10:03] LABS: Ammonia 41 umol/L (16-60)
[2022-08-26 10:04] LABS: Alanine Aminotransferase 20 U/L (0-41); Albumin Level 4.1 g/dL (3.5-5.2); Alkaline Phosphatase 47 U/L (40-130); Anion Gap 14.3 (5-19); Aspartate Amino Transferase 25 U/L (0-40); Blood Urea Nitrogen 17 mg/dL (6-20); Calcium 9.1 mg/dL (8.5-10.5); Carbon Dioxide 22 mmol/L (22-29); Chloride 103 mmol/L (98-107); Creatine Phosphokinase 274 U/L (39-308); Globulin 2.1 g/dL (1.3-4.6); Glomerular Filtration Rate 35.7 mL/min (90-130); Glucose 90 mg/dL (65-115); Osmolality Calculated 281 mOsm/kg (285-295); Potassium 4.3 mmol/L (3.5-5.1); Sodium 135 mmol/L (136-145); Total Bilirubin 0.3 mg/dL (0.15-1.2); Total Protein 6.2 g/dL (6.6-8.7)
== END 2022-08-26 09:13 | disposition home or self-care (01) ==
LOC: LAB 09:15
PROVIDERS: PCP Family Medicine; Visit Provider Family Medicine
DX: M62.82 Rhabdomyolysis (principal)
CPT/HCPCS: 36415; 80053; 82140; 82550; 85025

== ENCOUNTER 2022-08-27 06:00 | Outpatient (RCR) | payer MEDICARE, MEDICAID, SELFPAY | END 2022-09-25 23:59 | disposition home or self-care (01) | LOC: SOT 06:00 | PROVIDERS: PCP Family Medicine; Visit Provider Orthopaedic Surgery | DX: S68.61 Complete traumatic transphalangeal amputation of other and unspecified finger(s) (principal); X58.XXXD Exposure to other specified factors, subsequent encounter | CPT/HCPCS: 97018; 97110; 97140 ==

== ENCOUNTER → 2022-09-04 10:38 | Day surgery (SDC) | payer MEDICARE, MEDICAID, SELFPAY ==
[2022-09-04] MEDS: sodium chloride 0.9% 1,000 ML 999 ML IV (10:43)
[2022-09-04 11:00] VITALS: BP 151/92; PULSE 78; RESP 18; TEMP 36.6; O2SAT 96
== END ==
PROVIDERS: PCP Family Medicine; Visit Provider Family Medicine
DX: M62.82 Rhabdomyolysis (principal); E74.04 McArdle disease
CPT/HCPCS: 96360; J7030

== ENCOUNTER 2022-09-23 07:58 | Outpatient (RCR) | payer MEDICARE, MEDICAID, SELFPAY ==
[2022-09-02 09:55] LABS: Basophils # 0.1 10^3/uL (0.0-0.1); Basophils % 0.8 %; Eosinophils # 0.2 10^3/uL (0.0-0.8); Eosinophils % 2.8 %; Hematocrit 46.8 % (42.0-52.0); Hemoglobin 15.3 g/dL (11.7-16.6); Lymphocytes # 1.5 10^3/uL (0.8-4.8); Lymphocytes % 24.5 %; Mean Corpuscular HGB Conc 32.7 g/dL (30.0-36.0); Mean Corpuscular Hemoglobin 28.1 pg (28.0-34.0); Mean Platelet Volume 10.3 fL (7.4-10.4); Monocytes # 0.5 10^3/uL (0.2-0.9); Monocytes % 7.7 %; Neutrophils # 3.84 10^3/uL (1.8-7.7); Nucleated Red Blood Cells % 0 %; Platelet Count 190 10^3/cmm (130-400); Red Blood Count 5.44 10^6/uL (4.1-5.3); Red Cell Distribution Width 15.2 % (12.1-15.1)
[2022-09-02 10:13] LABS: Ammonia 28 umol/L (16-60)
[2022-09-02 10:15] LABS: Alanine Aminotransferase 28 U/L (0-41); Albumin Level 4.3 g/dL (3.5-5.2); Alkaline Phosphatase 59 U/L (40-130); Anion Gap 13.3 (5-19); Aspartate Amino Transferase 29 U/L (0-40); Blood Urea Nitrogen 28 mg/dL (6-20); Calcium 9.7 mg/dL (8.5-10.5); Carbon Dioxide 22 mmol/L (22-29); Chloride 102 mmol/L (98-107); Globulin 2.3 g/dL (1.3-4.6); Glomerular Filtration Rate 35.7 mL/min (90-130); Glucose 89 mg/dL (65-115); Osmolality Calculated 281 mOsm/kg (285-295); Potassium 4.3 mmol/L (3.5-5.1); Sodium 133 mmol/L (136-145); Total Bilirubin 0.3 mg/dL (0.15-1.2); Total Protein 6.6 g/dL (6.6-8.7)
[2022-09-02 10:24] LABS: Creatine Phosphokinase 416 U/L (39-308)
[2022-09-12 08:44] LABS: Basophils # 0.1 10^3/uL (0.0-0.1); Basophils % 0.8 %; Eosinophils # 0.2 10^3/uL (0.0-0.8); Eosinophils % 3.1 %; Hematocrit 49.7 % (42.0-52.0); Hemoglobin 16.2 g/dL (11.7-16.6); Lymphocytes # 1.5 10^3/uL (0.8-4.8); Lymphocytes % 24.7 %; Mean Corpuscular HGB Conc 32.6 g/dL (30.0-36.0); Mean Corpuscular Hemoglobin 27.8 pg (28.0-34.0); Mean Corpuscular Volume 85.2 fl (80-94); Mean Platelet Volume 10.1 fL (7.4-10.4); Monocytes # 0.5 10^3/uL (0.2-0.9); Monocytes % 7.8 %; Neutrophils # 3.88 10^3/uL (1.8-7.7); Neutrophils % 63.4 %; Nucleated Red Blood Cells % 0 %; Platelet Count 186 10^3/cmm (130-400); Red Blood Count 5.83 10^6/uL (4.1-5.3); Red Cell Distribution Width 14.9 % (12.1-15.1); White Blood Count 6.1 10^3/uL (4.0-10.0)
[2022-09-12 09:07] LABS: Ammonia 28 umol/L (16-60)
[2022-09-12 09:52] LABS: Creatine Phosphokinase 556 U/L (39-308)
[2022-09-12 10:40] LABS: Alanine Aminotransferase 28 U/L (0-41); Albumin Level 4.6 g/dL (3.5-5.2); Alkaline Phosphatase 65 U/L (40-130); Anion Gap 16.1 (5-19); Aspartate Amino Transferase 35 U/L (0-40); Blood Urea Nitrogen 30 mg/dL (6-20); Carbon Dioxide 24 mmol/L (22-29); Chloride 100 mmol/L (98-107); Globulin 2.6 g/dL (1.3-4.6); Glucose 91 mg/dL (65-115); Osmolality Calculated 288 mOsm/kg (285-295); Potassium 4.1 mmol/L (3.5-5.1); Sodium 136 mmol/L (136-145); Total Bilirubin 0.4 mg/dL (0.15-1.2); Total Protein 7.2 g/dL (6.6-8.7)
[2022-09-16 08:27] LABS: Basophils # 0.1 10^3/uL (0.0-0.1); Basophils % 0.9 %; Eosinophils # 0.1 10^3/uL (0.0-0.8); Eosinophils % 2.1 %; Hematocrit 47.1 % (42.0-52.0); Hemoglobin 15.8 g/dL (11.7-16.6); Lymphocytes # 1.3 10^3/uL (0.8-4.8); Lymphocytes % 22.3 %; Mean Corpuscular HGB Conc 33.5 g/dL (30.0-36.0); Mean Corpuscular Hemoglobin 28.8 pg (28.0-34.0); Mean Corpuscular Volume 85.8 fl (80-94); Mean Platelet Volume 10.3 fL (7.4-10.4); Monocytes # 0.4 10^3/uL (0.2-0.9); Monocytes % 6.5 %; Neutrophils # 3.95 10^3/uL (1.8-7.7); Neutrophils % 67.9 %; Nucleated Red Blood Cells % 0 %; Platelet Count 189 10^3/cmm (130-400); Red Blood Count 5.49 10^6/uL (4.1-5.3); Red Cell Distribution Width 14.8 % (12.1-15.1); White Blood Count 5.8 10^3/uL (4.0-10.0)
[2022-09-16 08:44] LABS: Ammonia 19 umol/L (16-60)
[2022-09-16 08:45] LABS: Alanine Aminotransferase 23 U/L (0-41); Albumin Level 4.3 g/dL (3.5-5.2); Alkaline Phosphatase 61 U/L (40-130); Anion Gap 15.2 (5-19); Aspartate Amino Transferase 25 U/L (0-40); Blood Urea Nitrogen 21 mg/dL (6-20); Calcium 9.7 mg/dL (8.5-10.5); Carbon Dioxide 24 mmol/L (22-29); Chloride 104 mmol/L (98-107); Globulin 2.5 g/dL (1.3-4.6); Glomerular Filtration Rate 43.1 mL/min (90-130); Glucose 118 mg/dL (65-115); Osmolality Calculated 292 mOsm/kg (285-295); Potassium 4.2 mmol/L (3.5-5.1); Sodium 139 mmol/L (136-145); Total Bilirubin 0.3 mg/dL (0.15-1.2); Total Protein 6.8 g/dL (6.6-8.7)
[2022-09-16 10:39] LABS: Creatine Phosphokinase 378 U/L (39-308)
[2022-09-23 08:45] LABS: Basophils # 0.1 10^3/uL (0.0-0.1); Basophils % 0.9 %; Eosinophils # 0.2 10^3/uL (0.0-0.8); Hematocrit 46.1 % (42.0-52.0); Hemoglobin 14.9 g/dL (11.7-16.6); Lymphocytes # 1.1 10^3/uL (0.8-4.8); Lymphocytes % 19.2 %; Mean Corpuscular HGB Conc 32.3 g/dL (30.0-36.0); Mean Corpuscular Hemoglobin 28.3 pg (28.0-34.0); Mean Corpuscular Volume 87.5 fl (80-94); Mean Platelet Volume 10.6 fL (7.4-10.4); Monocytes # 0.5 10^3/uL (0.2-0.9); Monocytes % 7.9 %; Neutrophils # 3.86 10^3/uL (1.8-7.7); Neutrophils % 67.8 %; Nucleated Red Blood Cells % 0 %; Platelet Count 176 10^3/cmm (130-400); Red Blood Count 5.27 10^6/uL (4.1-5.3); Red Cell Distribution Width 15.1 % (12.1-15.1); White Blood Count 5.7 10^3/uL (4.0-10.0)
[2022-09-23 08:46] LABS: Slide Review Slide Review Perform
[2022-09-23 09:01] LABS: Albumin Level 4.3 g/dL (3.5-5.2); Alkaline Phosphatase 51 U/L (40-130); Blood Urea Nitrogen 18 mg/dL (6-20); Calcium 9.2 mg/dL (8.5-10.5); Carbon Dioxide 26 mmol/L (22-29); Chloride 98 mmol/L (98-107); Globulin 2.2 g/dL (1.3-4.6); Glomerular Filtration Rate 33.7 mL/min (90-130); Glucose 91 mg/dL (65-115); Osmolality Calculated 275 mOsm/kg (285-295); Sodium 132 mmol/L (136-145); Total Bilirubin 0.4 mg/dL (0.15-1.2); Total Protein 6.5 g/dL (6.6-8.7)
[2022-09-23 09:09] LABS: Ammonia 45 umol/L (16-60)
[2022-09-23 10:59] LABS: Creatine Phosphokinase 575 U/L (39-308)
[2022-09-23 11:00] LABS: Alanine Aminotransferase 24 U/L (0-41); Anion Gap 12.6 (5-19); Aspartate Amino Transferase 38 U/L (0-40); Potassium 4.6 mmol/L (3.5-5.1)
== END 2022-09-25 23:59 | disposition home or self-care (01) ==
LOC: LAB 07:58
PROVIDERS: PCP Family Medicine; Visit Provider Family Medicine
DX: M62.82 Rhabdomyolysis (principal)
CPT/HCPCS: 36415; 80053; 82140; 82550; 85025

== ENCOUNTER 2022-09-26 06:00 | Outpatient (RCR) | payer MEDICARE, MEDICAID, SELFPAY | END 2022-10-26 23:59 | disposition home or self-care (01) | LOC: SOT 06:00 | PROVIDERS: PCP Family Medicine; Visit Provider Orthopaedic Surgery | DX: S68.61 Complete traumatic transphalangeal amputation of other and unspecified finger(s) (principal); X58.XXXD Exposure to other specified factors, subsequent encounter | CPT/HCPCS: 97018; 97110; 97140 ==

== ENCOUNTER → 2022-09-26 11:25 | Day surgery (SDC) | payer MEDICARE, MEDICAID, SELFPAY ==
[2022-09-26] MEDS: sodium chloride 0.9% 1,000 ML 999 ML IV (11:45)
[2022-09-26 11:49] VITALS: BP 154/86; PULSE 69; RESP 18; TEMP 36.2; O2SAT 97
== END ==
PROVIDERS: PCP Family Medicine; Visit Provider Family Medicine
DX: M62.82 Rhabdomyolysis (principal)
CPT/HCPCS: 96360; J7030

== ENCOUNTER 2022-10-07 06:25 | Outpatient (CLI) | payer MEDICARE, MEDICAID, SELFPAY ==
--- NOTE | 2022-10-07 | ECG_ITS ---
[facility] Test Date: 2022-10-07 Pat Name: Julian Cristobal Department: Room: Gender: Male Principal Archaeologist: : 1975 Requested By: Juanita Urrutia Order Number: [id number] Ilene MD: Mavis Salamanca M.D. Interpretive Statements NAME OF STUDY: LEXISCAN SESTAMIBI STRESS TEST INDICATION: Chest Pain PROCEDURE: At the baseline, the blood pressure was 125/98 mmHg with a heart rate of 55 bpm. The electrocardiogram showed sinus bradycardia, normal axis. Possible old anteroseptal infarct. The Lexiscan was infused over a period of 20 seconds. A total of 0.4 milligrams of Lexiscan was infused. The stress phase was continued for a total of 5 minutes. Heart rate at the end of the stress phase was 74 bpm with a blood pressure of 141/90 mmHg. The EKG at the peak infusion revealed sinus rhythm with no significant ST-T wave changes. The study was terminated due to protocol completion. Sestamibi was injected 20 seconds after the Lexiscan infusion. Blood pressure at the end of the recovery phase was 141/92 mmHg with a heart rate of 73 beats per minute. CONCLUSION: 1. No significant EKG changes with the LexiScan infusion. 2. No LexiScan induced chest pain or cardiac arrhythmia. 3. Normal blood pressure and heart rate response. 4. Sestamibi/sestamibi perfusion scan pending; see separate report. Electronically Signed On 10-14-2022 18:05:53 CROSS CUT SAWYER by Mavis Salamanca M.D. [id number]
--- NOTE | 2022-10-07 06:37 | NMCV_ITS ---
NM fabiana perf SPECT r/s* [id number] Julian Cristobal Age: 47 Gender: M : 1975 Exam Date: 10/07/2022 08:05 Ordering Phys: Juanita Urrutia Technologist: DOROTEO Ortega Exam Location: [facility] Indications: ATHEROSCLEROTIC HEART DISEASE OF [place] CORONARY ARTERY; DIASTOLIC CONGESTIVE HEART FAILURE STRESS TEST Please [facility] for [facility] IMAGE PROTOCOL Rest/Stress 1 Lexiscan Day Radiopharmaceutical Dose (mCi) Administration Site Administered by Rest: Tc-99m 10.9 IV DOROTEO Elizondo Sestamibi Stress:Tc-99m 32.6 IV DOROTEO Elizondo Sestamibi Rest: 07-Oct-2022 60 Discovery 630 Stress: 07-Oct-2022 30 Discovery 630 0.4mg Lexiscan. Images obtained in supine and prone position. SPECT RESULTS Technical Quality: Excellent Raw Data Analysis: Normal Image Corrections: No attenuation or motion correction applied Summed Stress Score: 13 Summed Rest Score: 7 Summed Difference Score: 6 PERFUSION FINDINGS Small sized perfusion abnormality of mid to apical inferior, apical septal and apical kulkarni on rest images with reversibility in mid anteroseptal, mid inferoseptal, apical septal, mid inferior kulkarni on stress images. FUNCTIONAL RESULTS (calculated via Gated SPECT) Stress Image LV EF (%): 54 Stress EDV (mL):138 TID: 1.01 Stress ESV (mL):64 FUNCTIONAL FINDINGS: The left ventricle is normal in size. Transient Ischemia Dilatation of 1. The left ventricular ejection fraction is low normal with a value of 54%. There is hypokinesis of septal, mid to apical inferior and apical kulkarni. IMPRESSIONS 1. Medium sized partially reversible perfusion abnormality of mid to apical inferior, mid anteroseptal, mid inferoseptal, apical septal and apical kulkarni. 2. This may represent ischemia in right coronary artery/left anterior descending artery territory. 3. The left ventricular ejection fraction is low normal with a value of 54%. 4. There is hypokinesis of septal, mid to apical inferior and apical kulkarni. 5. EKG portion of the study will be reported separately. Mavis Salamanca MD (Electronically Signed) Final Date: 07 October 2022 17:52 S
[2022-10-07 07:07] VITALS: BMI 24.3
[2022-10-07] MEDS: regadenoson 0.4 Mg/5 ml Syringe IVP (08:30)
[2022-10-07 08:42] VITALS: BP 141/92; PULSE 71
== END 2022-10-07 06:26 | disposition home or self-care (01) ==
LOC: CDL 06:25
PROVIDERS: PCP Family Medicine; Visit Provider Nurse Practitioner Family
DX: I50.33 Acute on chronic diastolic (congestive) heart failure (principal)
CPT/HCPCS: 36415; 78452; 93017; 96374; A9500; J2785

== ENCOUNTER 2022-10-14 06:47 | Outpatient (CLI) | payer MEDICARE, MEDICAID, SELFPAY ==
[2022-10-14 07:10] LABS: Basophils % 0.7 %; Eosinophils # 0.2 10^3/uL (0.0-0.8); Eosinophils % 3.7 %; Hematocrit 46.5 % (42.0-52.0); Hemoglobin 14.9 g/dL (11.7-16.6); Lymphocytes # 1.5 10^3/uL (0.8-4.8); Lymphocytes % 26.9 %; Mean Corpuscular Volume 87.2 fl (80-94); Mean Platelet Volume 10.6 fL (7.4-10.4); Monocytes # 0.5 10^3/uL (0.2-0.9); Neutrophils # 3.42 10^3/uL (1.8-7.7); Neutrophils % 60.5 %; Nucleated Red Blood Cells % 0 %; Platelet Count 197 10^3/cmm (130-400); Red Blood Count 5.33 10^6/uL (4.1-5.3); Red Cell Distribution Width 14.3 % (12.1-15.1); White Blood Count 5.7 10^3/uL (4.0-10.0)
[2022-10-14 07:30] LABS: Ammonia 20 umol/L (16-60)
[2022-10-14 07:31] LABS: Alanine Aminotransferase 25 U/L (0-41); Albumin Level 4.5 g/dL (3.5-5.2); Alkaline Phosphatase 58 U/L (40-130); Anion Gap 13.3 (5-19); Aspartate Amino Transferase 33 U/L (0-40); Blood Urea Nitrogen 29 mg/dL (6-20); Calcium 9.3 mg/dL (8.5-10.5); Carbon Dioxide 26 mmol/L (22-29); Chloride 102 mmol/L (98-107); Globulin 2.1 g/dL (1.3-4.6); Glucose 109 mg/dL (65-115); Osmolality Calculated 290 mOsm/kg (285-295); Potassium 4.3 mmol/L (3.5-5.1); Sodium 137 mmol/L (136-145); Total Bilirubin 0.3 mg/dL (0.15-1.2); Total Protein 6.6 g/dL (6.6-8.7)
[2022-10-14 08:33] LABS: Creatine Phosphokinase 595 U/L (39-308)
== END 2022-10-14 06:48 | disposition home or self-care (01) ==
LOC: LAB 06:51
PROVIDERS: PCP Family Medicine; Visit Provider Family Medicine
DX: M62.82 Rhabdomyolysis (principal)
CPT/HCPCS: 36415; 80053; 82140; 82550; 85025

== ENCOUNTER 2022-10-21 09:41 | Outpatient (RCR) | payer MEDICARE, MEDICAID, SELFPAY ==
[2022-09-30 08:48] LABS: Hemoglobin 14.9 g/dL (11.7-16.6); Mean Corpuscular HGB Conc 32.4 g/dL (30.0-36.0); Mean Corpuscular Hemoglobin 28.3 pg (28.0-34.0); Mean Corpuscular Volume 87.3 fl (80-94); Mean Platelet Volume 9.8 fL (7.4-10.4); Platelet Count 186 10^3/cmm (130-400); Red Blood Count 5.27 10^6/uL (4.1-5.3); Red Cell Distribution Width 14.8 % (12.1-15.1); White Blood Count 5.3 10^3/uL (4.0-10.0)
[2022-09-30 09:12] LABS: Absolute Neutrophil 3.4 10^3/cmm (1.4-6.5); Absolute Segmented Neutrophil 3.4 10/cmm (1.6-7.1); Ammonia 26 umol/L (16-60); Eosinophils 1 %; Lymphocytes 19 %; Lymphocytes Absolute 1.6 10^3/cmm (1.2-3.4); Monocytes Absolute 0.2 10^3/cmm (0.1-0.6); Platelet Estimate Normal (Normal); Segmented Neutrophils 64 %; Total Cells Counted 100 (0-100)
[2022-09-30 09:13] LABS: Alanine Aminotransferase 28 U/L (0-41); Albumin Level 4.4 g/dL (3.5-5.2); Alkaline Phosphatase 48 U/L (40-130); Anion Gap 12.3 (5-19); Anisocytosis 1+; Aspartate Amino Transferase 27 U/L (0-40); Blood Urea Nitrogen 16 mg/dL (6-20); Calcium 9.5 mg/dL (8.5-10.5); Carbon Dioxide 26 mmol/L (22-29); Chloride 106 mmol/L (98-107); Creatine Phosphokinase 249 U/L (39-308); Giant Platelets Trace; Glomerular Filtration Rate 35.7 mL/min (90-130); Glucose 87 mg/dL (65-115); Hypochromasia 1+; Macrocytosis 1+; Microcytosis 1+; Osmolality Calculated 291 mOsm/kg (285-295); Ovalocytes Trace; Poikilocytosis 1+; Polychromasia 1+; Potassium 4.3 mmol/L (3.5-5.1); Smudge Cells Trace; Sodium 140 mmol/L (136-145); Spherocytes 1+; Target Cells Trace; Total Bilirubin 0.4 mg/dL (0.15-1.2); Total Protein 6.4 g/dL (6.6-8.7)
[2022-10-07 10:28] LABS: Alanine Aminotransferase 30 U/L (0-41); Albumin Level 4.7 g/dL (3.5-5.2); Alkaline Phosphatase 58 U/L (40-130); Ammonia 29 umol/L (16-60); Anion Gap 14.4 (5-19); Aspartate Amino Transferase 26 U/L (0-40); Blood Urea Nitrogen 18 mg/dL (6-20); Calcium 9.6 mg/dL (8.5-10.5); Carbon Dioxide 22 mmol/L (22-29); Chloride 103 mmol/L (98-107); Creatine Phosphokinase 244 U/L (39-308); Globulin 2.2 g/dL (1.3-4.6); Glomerular Filtration Rate 40.3 mL/min (90-130); Glucose 92 mg/dL (65-115); Osmolality Calculated 282 mOsm/kg (285-295); Potassium 4.4 mmol/L (3.5-5.1); Sodium 135 mmol/L (136-145); Total Bilirubin 0.4 mg/dL (0.15-1.2); Total Protein 6.9 g/dL (6.6-8.7)
[2022-10-07 10:29] LABS: Basophils # 0.1 10^3/uL (0.0-0.1); Basophils % 0.9 %; Eosinophils # 0.2 10^3/uL (0.0-0.8); Eosinophils % 3.8 %; Hematocrit 49.4 % (42.0-52.0); Hemoglobin 16.3 g/dL (11.7-16.6); Lymphocytes # 1.3 10^3/uL (0.8-4.8); Lymphocytes % 23.3 %; Mean Corpuscular Hemoglobin 28.3 pg (28.0-34.0); Mean Corpuscular Volume 85.8 fl (80-94); Mean Platelet Volume 10.2 fL (7.4-10.4); Monocytes # 0.4 10^3/uL (0.2-0.9); Monocytes % 8.1 %; Neutrophils # 3.48 10^3/uL (1.8-7.7); Neutrophils % 63.7 %; Nucleated Red Blood Cells % 0 %; Platelet Count 195 10^3/cmm (130-400); Red Blood Count 5.76 10^6/uL (4.1-5.3); Red Cell Distribution Width 14.5 % (12.1-15.1); White Blood Count 5.5 10^3/uL (4.0-10.0)
[2022-10-21 10:00] LABS: Basophils % 0.7 %; Eosinophils # 0.1 10^3/uL (0.0-0.8); Eosinophils % 2.4 %; Hematocrit 48.2 % (42.0-52.0); Hemoglobin 15.9 g/dL (11.7-16.6); Lymphocytes # 1.4 10^3/uL (0.8-4.8); Lymphocytes % 24.8 %; Mean Corpuscular Hemoglobin 28.2 pg (28.0-34.0); Mean Corpuscular Volume 85.5 fl (80-94); Mean Platelet Volume 10.3 fL (7.4-10.4); Monocytes # 0.4 10^3/uL (0.2-0.9); Monocytes % 7.5 %; Neutrophils # 3.53 10^3/uL (1.8-7.7); Neutrophils % 64.4 %; Nucleated Red Blood Cells % 0 %; Platelet Count 196 10^3/cmm (130-400); Red Blood Count 5.64 10^6/uL (4.1-5.3); White Blood Count 5.5 10^3/uL (4.0-10.0)
[2022-10-21 10:16] LABS: Ammonia 22 umol/L (16-60)
[2022-10-21 10:31] LABS: Alanine Aminotransferase 20 U/L (0-41); Albumin Level 4.7 g/dL (3.5-5.2); Alkaline Phosphatase 57 U/L (40-130); Anion Gap 13.8 (5-19); Aspartate Amino Transferase 23 U/L (0-40); Blood Urea Nitrogen 26 mg/dL (6-20); Calcium 9.6 mg/dL (8.5-10.5); Carbon Dioxide 26 mmol/L (22-29); Chloride 101 mmol/L (98-107); Creatine Phosphokinase 229 U/L (39-308); Globulin 2.1 g/dL (1.3-4.6); Glucose 109 mg/dL (65-115); Osmolality Calculated 289 mOsm/kg (285-295); Potassium 3.8 mmol/L (3.5-5.1); Sodium 137 mmol/L (136-145); Total Bilirubin 0.3 mg/dL (0.15-1.2); Total Protein 6.8 g/dL (6.6-8.7)
== END 2022-10-26 23:59 | disposition home or self-care (01) ==
LOC: LAB 09:41
PROVIDERS: PCP Family Medicine; Visit Provider Family Medicine
DX: M62.82 Rhabdomyolysis (principal)
CPT/HCPCS: 36415; 80053; 82140; 82550; 85007; 85025; 85027

== ENCOUNTER 2022-10-24 11:24 | Observation (INO) | payer MEDICARE, MEDICAID, SELFPAY ==
[2022-10-24] VITALS (39 sets, daily range): BP systolic 116–166; BP diastolic 71–101; PULSE 52–87; RESP 10–27; TEMP 36.5; O2SAT 95–100; BMI 24.3
--- NOTE | 2022-10-24 | XACV_ITS ---
Exam Room: 2 Ht: 185 cm Wt: 83 kg BSA: 2.08 m2 Gender: Male : 1975 Any Known Allergies: Other Exam Priority: Routine Procedure(s): Procedure Description: Diagnostic procedure Procedure Description: PCI procedure Procedure Description: Coronary IVUS Procedure Description: Drug Eluting Coronary Stent Procedure Description: Bare Metal Coronary Stent Procedure Description: PTCA Procedure Description: Miscellaneous Procedure Description: ACT Procedure Description: Coronary Angiography Diagnostic Cath Status: Elective Diagnostic Findings * INDICATION: 47 year old male with past medical history of CAD who has been having worsening chest pain/upper back pain, significant dyspnea on exertion and had abnormal stress test. Plan for coronary angiogram with possible percutaneous coronary intervention. * Left Main has no significant disease. * Circumflex has no significant disease. * LAD is a large-caliber vessel. * In the mid vessel patient has a prior stent. At proximal edge of the stent there is critical 95% in-stent restenosis that extends proximally into the [place] vessel. * M * id Left Anterior Descending: critical 95% stenosis, ALEXA: 3 flow. * Proximal Right Coronary Artery: total occlusion, ALEXA: 0 flow. * Coronary angiography shows right dominance. PCI Status: Elective PCI Indication: Other Interventional Findings * Procedure detail: We engaged left main artery with XB 3.5 guide catheter. IV heparin was administered to maintain ACT above 250s. 0.014 run-through guidewire was used to cross the stenosis and was put in distal vessel. We tried to advance IVUS catheter however it would not cross the stenosis. It was used to however size the proximal vessel. We predilated the stenosis with a 2.5 x 15 mm semicompliant balloon. This was followed by placement of 3.5 x 18 mm resolute Eckley drug-eluting stent. We then postdilated the proximal part of the stent with a 4.0 x 8 mm NC balloon. In the midsegment we had to put a roberto wire to cross initially a 3.5 x 12 mm semicompliant balloon and then 3.75 x 20 mm NC balloon for post dilation. At this time final angiogram was performed that showed excellent stent expansion, no residual stenosis and ALEXA-3 flow. Patient left the Alarm Operator in a stable condition. There was another stenosis in the very proximal LAD. However IVUS showed MLA of 5.6 mm2.. * Mid Left Anterior Descendin% stenosis treated with a AB TREK 2.50X15 RX BALLOON, MDManinder R BORIS 3.5X18 LANI, MDT NC EUPHORA RX [id number] BALLOON, AB TREK 3.50X12 RX BALLOON, and MDT NC EUPHORA RX 3.43E43AM BALLOON. 0% residual stenosis, ALEXA: 3 flow. Conclusions 1. Critical proximal to mid 2. LAD stenosis 3. s/p successful revascularization with LANI x1.. 4. Mid Left Anterior Descending was treated with a Balloon, Drug Eluting Stent, Balloon, Balloon, and Balloon. Recommendations * Dual antiplatelet therapy with aspirin and Plavix for at least 1 year. * High intensity statin therapy. * Aggressive risk factor control. * Outpatient cardiology follow-up in 4 weeks. Interventional RX Recommendation: PCI w/o planned CABG Diagnostic RX Recommendation: PCI w/o planned CABG Anticoagulation: Heparin Pressures Phase:Rest AO : 99 / 74 ( 87 ) @ 8:34:00 AM 118 / 65 ( 87 ) @ 8:41:00 AM 81 / 44 ( 60 ) @ 8:53:00 AM 105 / 67 ( 85 ) @ 9:00:00 AM 105 / 65 ( 84 ) @ 9:08:00 AM 90 / 51 ( 69 ) @ 9:16:00 AM 85 / 55 ( 69 ) @ 9:26:00 AM Clinical Evaluation EBL: 5mL-10mL Procedural Details Procedure Consent Obtained. Admit Source: Out Patient. Pre-Procedure Time Out. Identified patient by full name and date of as verbalized by the patient/guarantor. Does the consent match the physician's order: Yes. Accurate & Complete Informed Consent: Yes. Inpatient/Outpatient History & Physical on Chart: Yes. If H&P is completed, is and addenduem needed: No; If yes, is the addendum complete: N/A. Visualize and Verify Site with Patient/Guarantor: N/A. Relevant Radiology Images available: Yes. The risks, benefits, and alternatives of sedation and/or procedure were discussed by physician. The patient agrees to continue. Procedure started. Vital chart was stopped. Correct patient, site and procedure confirmed by cath team. PERRLA. 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 Lungs clear x 5 lobes. IV Site on Arrival: 20 gauge in the left anticubital. IV Fluids: 0.9% NaCl at KVO. 0 mL infused prior to cath lab radiology technician. Pre Procedural Pulses: bilateral dorsalis pedis was 3+. Pre Procedural Pulses: bilateral radial was 3+. Pre Procedural Pulses: bilateral posterior tibial was 3+. Oxygen started at 2liters/min via nasal canula. right groin was prepped with chloroprep then draped in the usual sterile fashion. right radial was prepped with chloroprep then draped in the usual sterile fashion. Physician notified. Baseline sample Acquired. HR: 76 BPM. [facility] Clinical Fraility Score: 3: Managing Well. Alarm Operator Indications: abnormal stress test. Chest Pain Symptom Assessment: Typical Angina Symptoms. Cardiovascular Instability: No. Physician arrived. Physician scrubbed in. Immediate Pre-Procedure Time Out. Correct Patient: Yes; Correct Procedure: Yes; Correct Site: Yes; Correct Patient Position: Yes; Correct Supplies: Yes; Dried Flammable Prep: Yes; Blood Products Available: N/A;. Lidocaine 1% infiltrated to the right radial. Arterial access obtained. A 5 sinhala TIG catheter in over wire. Multiple views taken of left coronary artery. Catheter redirected to the RCA. Multiple views taken of right coronary artery. Catheter removed over the exchange wire. 6 sinhala XB 3.5 guide catheter was inserted over the wire. Runthrough guidewire was advanced through the guide catheter to lesion in the diaganol. Family updated. Second Runthrough guidewire was advanced through the guide catheter to lesion in the mid LAD. ACT drawn. Results 284 seconds. Therapeutic limits - pre-heparin administration 90-150 seconds and monitoring heparin during a vascular procedure >250 seconds. IVUS catheter in over wire to LAD. IVUS catheter out over wire. IVUS run to LAD, not crossing lesion. Inflation number : 1 A AB TREK 2.50X15 RX BALLOON was prepped and advanced across the Mid LAD , then inflated to 12 NICHOL for 0:27 seconds. Balloon out. Results checked. Inflation Number : 2 A ASA Smith BORIS 3.5X18 LANI -Lot Number#[id number] exp 01/18/2025 was prepped and advanced across the Mid LAD. The stent was deployed at 12 NICHOL for 0:23 seconds. Stent balloon out over wire. Runthrough wire out from Diag. Results checked. Inflation number : 3 A MDT RAMESH EUPHORA RX [id number] BALLOON was prepped and advanced across the Mid LAD , then inflated to 14 NICHOL for 0:22 seconds. Balloon out. IVUS catheter in over [facility]. IVUS run of LAD. IVUS catheter out. Balloon inserted to lesion in the mid LAD. Intact balloon unable to cross lesion and removed. Inflation number: 4 The AB TREK 2.50X15 RX BALLOON was reinflated across the Mid LAD, to 15 NICHOL for 0:19 seconds. Balloon out. Results checked. Balloon inserted to lesion in the mid LAD. Intact balloon removed, not able to cross lesion. Balloon inserted to lesion in the mid LAD. Intact balloon removed, unable to cross lesion. ACT drawn. Results 210 seconds. Therapeutic limits - pre-heparin administration 90-150 seconds and monitoring heparin during a vascular procedure >250 seconds. Second Runthrough guidewire was advanced through the guide catheter to lesion in the mid LAD. Inflation number : 17 A AB TREK 3.50X12 RX BALLOON was prepped and advanced across the Mid LAD , then inflated to 12 NICHOL for 0:23 seconds. Balloon out. Inflation number : 6 A T RAMESH EUPHORA RX [id number] BALLOON was prepped and advanced across the Mid LAD , then inflated to 8 NICHOL for 0:16 seconds. Balloon out. One Runthrough out. Results checked. Ruthrough wire out. Second runthrough wire out. ACT drawn. Results 277 seconds. Therapeutic limits - pre-heparin administration 90-150 seconds and monitoring heparin during a vascular procedure >250 seconds. Post Procedure: Pulses reassessed and unchanged. PERRLA. 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 No VTE prophylaxis required. Medication's Wasted: Nitro = 49.6 mg. Medication's Wasted: Heparin = 2000 units. Medication's Wasted: Lidocaine 1% = 2 mL. Total IV fluids: 365 mL. A TR Band was successful obtaining hemostatsis at the Right Radial artery insertion site. Post-op diagnosis: severe stenosis, post PCI with one stent to LAD. Complications: none. Estimated blood loss: 5mL-10mL. Responsiveness - Normal response to verbal stimuli; alert and oriented, PERRLA. Airway - Unaffected, no intervention required; spontaneous ventilation. Circulation: W/N/L, pulses unchanged. Nausea/Vomiting: No. Procedure completed. Patient transferred by wheelchair to CPRU. Vital chart was stopped. Access Site Site: Right Radial artery Sheath Size: 6 Fr Hemostasis Method: TR Band Hemostasis Success: Successful Procedure Medications Start: 8:18 AM Stop: 8:18 AM Medication: Fentanyl Amount: 50 mcg Route: I.V. Start: 8:27 AM Stop: 8:27 AM Medication: Fentanyl Amount: 50 mcg Route: I.V. Start: 8:30 AM Stop: 8:30 AM Medication: Fentanyl Amount: 50 mcg Route: I.V. Start: 8:31 AM Stop: 8:31 AM Medication: Nitrogylcerin Amount: 200 mcg Route: I.A. Start: 8:33 AM Stop: 8:33 AM Medication: Heparin Amount: 5000 units Route: I.V. Start: 8:35 AM Stop: 8:35 AM Medication: Fentanyl Amount: 50 mcg Route: I.V. Start: 8:41 AM Stop: 8:41 AM Medication: Heparin Amount: 3000 units Route: I.V. Start: 8:46 AM Stop: 8:46 AM Medication: Fentanyl Amount: 25 mcg Route: I.V. Start: 8:54 AM Stop: 8:54 AM Medication: Fentanyl Amount: 25 mcg Route: I.V. Start: 8:54 AM Stop: 8:54 AM Medication: Heparin Amount: 2000 units Route: I.V. Start: 8:58 AM Stop: 8:58 AM Medication: 0.9% Saline Amount: 250 ml/hr Route: I.V. bolus Start: 9:02 AM Stop: 9:02 AM Medication: Fentanyl Amount: 25 mcg Route: I.V. Start: 9:03 AM Stop: 9:03 AM Medication: Heparin Amount: 1000 units Route: I.V. Start: 9:17 AM Stop: 9:17 AM Medication: Fentanyl Amount: 25 mcg Route: I.V. Start: 9:19 AM Stop: 9:19 AM Medication: Heparin Amount: 3000 units Route: I.V. Start: 9:26 AM Stop: 9:26 AM Medication: Nitrogylcerin Amount: 200 mcg Route: I.C. Start: 9:30 AM Stop: 9:30 AM Medication: Plavix Amount: 300 mg Route: P.O. Start: 9:31 AM Stop: 9:31 AM Medication: Aspirin Amount: 325 mg I, the attending physician, have reviewed and verified all procedure medications. Yes, all medications given per verbal order History/Risk Factors Hypertension: Yes Dyslipidemia: No Peripheral Arterial Disease (PAD): No Myocardial Infarction (MO): Yes Obesity: No Tobacco Use: Former Prior Interventions PCI: Yes CABG: No Valve Surgery: No Report Signatures Finalized by Casimiro Cerna MD on 10/26/2022 12:23 PM
[2022-10-24] MEDS: diphenhydrAMINE 50 mg Capsule PO (06:10)
--- NOTE | 2022-10-24 08:26 | W.PM.OPSFHP ---
Same Day Surgery H&P Indication for Procedure/HPI DATE OF PROCEDURE: October 24, 2022 CHIEF COMPLAINT/INDICATIONFOR SURGICAL PROCEDURE: Worsening dyspnea on exertion/ abnormal stress test/ back pain PREOP DIAGNOSIS: Worsening dyspnea on exertion/ abnormal stress test/ back pain PLANNED PROCEDURE: Operation Date: 10/24/22 07:00 Proposed Procedures p [facility] in cath [id number],I25.10,E74.04,R94.39(Left) - Casimiro Cerna M.D Possible percutaneous coronary intervention 47-year-old man with past medical history of CAD s/p PCI of LAD and RCA. On last coronary angiogram was found to have occluded RCA. He has been having worsening shortness of breath recently. Also for the last 2 weeks has been noticing severe back pain that is similar to his prior heart attack. Plan is to perform coronary angiogram with possible percutaneous coronary intervention. ROS CONSTITUTIONAL: No fever chills weight loss or gain or night sweats. [] HEENT: Normocephalic, atraumatic.[] RESPIRATORY: Dyspnea on exertion CARDIOVASCULAR:Has shortness of breath, upper back pain. GI: no nausea vomiting diarrhea. 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 [] MUSCULOSKELETAL: No knee or joint pain or rashes. [] Medications/Allergies* Home Medications Medication Instructions Recorded Confirmed Type aspirin 81 mg tablet,delayed 81 mg PO DAILY 10/29/19 10/24/22 History release (Adult Aspirin Regimen) cholecalciferol (vitamin D3) 25 1,000 unit PO DAILY 10/29/19 10/24/22 History mcg (1,000 unit) capsule famotidine 20 mg tablet (Pepcid) 20 mg PO DAILY 10/29/19 10/24/22 History nicotine 7 mg/24 hr daily 1 patch transdermal Q24H 03/29/22 10/23/22 History transdermal patch Allergies/Adverse Reactions Allergy/AdvReac Type Severity Reaction Status Date / Time droperidol [From Inapsine] Allergy Severe Unknown Verified 10/23/22 08:24 zolpidem [From Ambien] Allergy Severe Amnesia Verified 10/23/22 08:24 tramadol [From Ultram] AdvReac Severe Severe Verified 10/23/22 08:24 anxiety tuberculin, purified protein AdvReac Intermediate ALGY-Rash Verified 10/23/22 08:24 deriva Current Medications: Generic Name Dose Route Start Last Admin Trade Name Shilo PRN Reason Stop Dose Admin Sodium Chloride 1,000 mls @ 50 mls/hr 10/24/22 06:00 10/24/22 06:57 Sodium Chloride 0.9% IV 10/25/22 01:59 Not Given .Q20H ONE Pertinent History/Comorbid Conditions* Medical History (Updated 10/08/22 @ 15:44 by CHRISTIN Quijano) Acute depression Acute non-recurrent pansinusitis Acute on chronic renal insufficiency Anxiety Arteriosclerotic heart disease Chronic kidney disease, unspecified Chronic rhinitis CKD (chronic kidney disease) stage 3, GFR 30-59 ml/min Closed displaced fracture of distal phalanx of toe of left foot Common migraine without intractability Edema, unspecified Essential (primary) hypertension GERD (gastroesophageal reflux disease) Insomnia, unspecified 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 [place] disease Metabolic encephalopathy Obstructive sleep apnea Shortness of breath Tremor, unspecified Venous insufficiency (chronic) (peripheral) Vitamin D deficiency, unspecified Surgical History (Updated 11/04/19 @ 16:20 by Dieter Weinstein MD) H/O angioplasty H/O arthroscopic knee surgery H/O heart surgery Hx of tonsillectomy S/P hemodialysis catheter insertion Family History (Updated 03/29/22 @ 08:54 by Juanita Hallman LPN) Father, AT AGE 55 Mother, AT AGE 55 Diabetes Mother Hever's disease Mother Alcoholism Father Hypertension Mother Social History Smoking and tobacco status: current every day smoker cigarettes Packs smoked per day: 0.5 Alcohol intake: current Alcohol intake frequency: holidays/special occasions only Marital status: Current occupational status: disabled History of recent travel: No Pertinent Exam Findings alert, oriented x 3, clear to auscultation bilaterally and regular rate & rhythm Conscious Sedation Assessment PATIENT ASSESSED PRIOR TO SEDATION, WITH NO CHANGE NOTED: Yes AIRWAY EVAL/ANESTHESIA PLAN: normal airway, ASA III, Local Anesthesia, Risks, benefits & alternatives of sedation and/or procedure discussed and Patient agrees to continue as planned ADDITIONAL INFORMATION: Moderate sedation Recommendations Surgery/Procedure today (Left heart cath with possible percutaneous coronary intervention) Coding Level of Care Code Acute 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
[2022-10-24] MEDS: sodium chloride 0.9% 1,000 ML 100 ML IV (11:58)
--- NOTE | 2022-10-24 16:20 | PM.SDS ---
Short Stay Summary Providers Date of Admit/Discharge: 10/24/22 Attending Provider: Casimiro Cerna M.D Primary Care Provider: Hina Zaragoza DO Chief Complaint: I25.10 HPI History of Present Illness Julian Cristobal is a 47 year old male with past medical history of CAD who has been having worsening chest pain/upper back pain, significant dyspnea on exertion and had abnormal stress test. Plan for coronary angiogram with possible percutaneous coronary intervention. Review of Systems Narrative: CONSTITUTIONAL: No fever chills weight loss or gain or night sweats. [] HEENT: Normocephalic, atraumatic.[] RESPIRATORY: No cough, sputum, hemoptysis or wheezing.[] CARDIOVASCULAR: Dyspnea on exertion GI: no nausea vomiting diarrhea. 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 [] MUSCULOSKELETAL: No knee or joint pain or rashes. [] Home Meds/Allergies Home Medications and Allergies Home Medications Medication Instructions Recorded Confirmed Type aspirin 81 mg tablet,delayed 81 mg PO DAILY 10/29/19 10/24/22 History release (Adult Aspirin Regimen) cholecalciferol (vitamin D3) 25 1,000 unit PO DAILY 10/29/19 10/24/22 History mcg (1,000 unit) capsule famotidine 20 mg tablet (Pepcid) 20 mg PO DAILY 10/29/19 10/24/22 History nicotine 7 mg/24 hr daily 1 patch transdermal Q24H 03/29/22 10/23/22 History transdermal patch Allergies Allergy/AdvReac Type Severity Reaction Status Date / Time droperidol [From Inapsine] Allergy Severe Unknown Verified 10/23/22 08:24 zolpidem [From Ambien] Allergy Severe Amnesia Verified 10/23/22 08:24 tramadol [From Ultram] AdvReac Severe Severe Verified 10/23/22 08:24 anxiety tuberculin, purified protein AdvReac Intermediate ALGY-Rash Verified 10/23/22 08:24 deriva PFSH Acute PFSH: Medical History Acute depression Acute non-recurrent pansinusitis Acute on chronic renal insufficiency Anxiety Arteriosclerotic heart disease Chronic kidney disease, unspecified Chronic rhinitis CKD (chronic kidney disease) stage 3, GFR 30-59 ml/min Closed displaced fracture of distal phalanx of toe of left foot Common migraine without intractability Edema, unspecified Essential (primary) hypertension GERD (gastroesophageal reflux disease) Insomnia, unspecified 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 Bay disease Metabolic encephalopathy Obstructive sleep apnea Shortness of breath Tremor, unspecified Venous insufficiency (chronic) (peripheral) Vitamin D deficiency, unspecified Surgical History H/O angioplasty H/O arthroscopic knee surgery H/O heart surgery Hx of tonsillectomy S/P hemodialysis catheter insertion Family History Mother , AT AGE 55 Hypertension Diabetes [place]'s disease Father , AT AGE 55 Alcoholism Social History Smoking and tobacco status: current every day smoker cigarettes Packs smoked per day: 0.5 Alcohol intake: current Alcohol intake frequency: holidays/special occasions only Marital status: Current occupational status: disabled History of recent travel: No Vitals/I&O/Wt Last Vital Signs Temp 97.7 F 10/24/22 06:20 Pulse 67 10/24/22 15:00 Resp 23 H 10/24/22 15:00 BP 136/86 10/24/22 15:00 Pulse Ox 100 10/24/22 12:00 O2 Del Method 10/24/22 10:31 10/24/22 10/24/22 10/24/22 06:59 14:59 22:59 Intake Total 236 / 236 Balance 236 / 236 Weight last 48 hrs Weight 184 lb Physical Exam Narrative: GENERAL: Patient is alert, awake and oriented x3. [] NECK: No jugular vein distension. [] HEENT: No cyanosis. No icterus. No pallor. [] HEART: Regular S1 and S2. No murmur, rub or gallop. [] LUNGS: Clear to auscultate bilaterally. [] CENTRAL NERVOUS SYSTEM: Grossly nonfocal. [] EXTREMITIES: Lower extremities with 1+ edema bilaterally. Pulses palpable in the lower extremities, both dorsalis pedis and posterior tibial. [] Hospital Course Hospital Course Patient underwent coronary angiogram that showed a WILDERNESS GUIDE of RCA that is known from before, a he had critical proximal to mid LAD 95% stenosis underwent successful revascularization with LANI x1. Patient was observed for about 8 hours. He was doing good and was discharged home in stable condition. 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 Routin e Exams 10/24/22 Taken Discharge Plan Discharge Patient Disposition: Home Condition: Stable Prescriptions: Continued aspirin [Adult Aspirin Regimen] 81 mg tablet,delayed release (DR/EC) 81 mg PO DAILY famotidine [Pepcid] 20 mg tablet 20 mg PO DAILY cholecalciferol (vitamin D3) 1,000 unit capsule 1,000 unit PO DAILY amlodipine [Norvasc] 10 mg tablet 10 mg PO DAILY Qty: 90 4RF clopidogrel 75 mg tablet 75 mg PO DAILY Qty: 90 4RF isosorbide mononitrate 30 mg tablet extended release 24 hr 30 mg PO BID Qty: 90 4RF furosemide [Lasix] 20 mg tablet 20 mg PO BID PRN (Reason: Edema) Qty: 180 4RF metoprolol succinate 25 mg tablet extended release 24 hr 37.5 mg PO DAILY Qty: 135 4RF potassium chloride 20 mEq tablet extended release 20 meq PO DAILY Qty: 90 4RF rosuvastatin 20 mg tablet 20 mg PO .HS Qty: 90 4RF Rx Instructions: Insurance denied Repatha. nicotine 7 mg/24 hr patch 24 hour 1 patch transdermal Q24H trazodone 150 mg tablet 150 mg PO .HS Qty: 30 2RF levofloxacin 500 mg tablet 500 mg PO DAILY Qty: 21 2RF Discharge Orders: Discharge Order (Routine); Ordered 10/24/22 Ordered By: Casimiro Cerna Referrals: Juanita Urrutia FNP [Nurse Practitioner] - 7-10 days (You have a follow up appointment with Casimiro Cerna MD on 11/10/22 at 1:45pm.) Casimiro Cerna M.D [Physician] - 2 months Discharge Diet: Cardiac Discharge Activity: Increase activity as tolerated Patient Instructions: Opioid Safety, Coronary Angioplasty (DC) Activity Restrictions/Additional Instructions: Please do not lift more than 5-10 pounds of weight for the next 5 days with right hand Attestations Medical Necessity Statement*: Patient not expected to cross 2 midnights. Patient came for outpatient Left heart cath and underwent successful revascularization with DESx 1. 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
== END 2022-10-24 18:17 | disposition home or self-care (01) ==
LOC: CSU 11:24
PROVIDERS: Admitting Provider Internal Medicine; PCP Family Medicine; Visit Provider Internal Medicine
DX: I25.10 Atherosclerotic heart disease of native coronary artery without angina pectoris (principal); I25.2 Old myocardial infarction; E74.04 McArdle disease; Z79.82 Long term (current) use of aspirin; F41.9 Anxiety disorder, unspecified; K21.9 Gastro-esophageal reflux disease without esophagitis; Z79.891 Long term (current) use of opiate analgesic; G47.33 Obstructive sleep apnea (adult) (pediatric); I12.9 Hypertensive chronic kidney disease with stage 1 through stage 4 chronic kidney disease, or unspecified chronic kidney disease; N18.9 Chronic kidney disease, unspecified; F17.210 Nicotine dependence, cigarettes, uncomplicated
CPT/HCPCS: 36415; 85347; 92978; 93454; 96361; 96365; 99152; 99153; C1725; C1753; C1769; C1874; C1887; C1894; C9600; G0378; J0461; J1644; J2250; J3010; J3490; J7030; Q0163; Q9967

== ENCOUNTER 2022-10-27 06:00 | Outpatient (RCR) | payer MEDICARE, MEDICAID, SELFPAY | END 2022-11-26 23:59 | disposition home or self-care (01) | LOC: SOT 06:00 | PROVIDERS: PCP Family Medicine; Visit Provider Orthopaedic Surgery | DX: S68.61 Complete traumatic transphalangeal amputation of other and unspecified finger(s) (principal); X58.XXXD Exposure to other specified factors, subsequent encounter | CPT/HCPCS: 97018; 97022; 97110; 97140 ==

== ENCOUNTER → 2022-11-11 13:46 | Outpatient (BNVA) | payer MEDICARE, MEDICAID, SELFPAY | PROVIDERS: PCP Family Medicine; Visit Provider Internal Medicine | DX: I13.0 Hypertensive heart and chronic kidney disease with heart failure and stage 1 through stage 4 chronic kidney disease, or unspecified chronic kidney disease (principal); F17.210 Nicotine dependence, cigarettes, uncomplicated; N18.30 Chronic kidney disease, stage 3 unspecified; I50.33 Acute on chronic diastolic (congestive) heart failure; I25.10 Atherosclerotic heart disease of native coronary artery without angina pectoris | CPT/HCPCS: 99214 ==

== ENCOUNTER 2022-11-18 07:57 | Outpatient (RCR) | payer MEDICARE, MEDICAID, SELFPAY ==
[2022-10-28 09:11] LABS: Basophils % 0.6 %; Eosinophils # 0.2 10^3/uL (0.0-0.8); Eosinophils % 3.4 %; Hematocrit 48.5 % (42.0-52.0); Hemoglobin 15.7 g/dL (11.7-16.6); Lymphocytes # 1.1 10^3/uL (0.8-4.8); Lymphocytes % 22.3 %; Mean Corpuscular HGB Conc 32.4 g/dL (30.0-36.0); Mean Corpuscular Volume 86.6 fl (80-94); Mean Platelet Volume 10.4 fL (7.4-10.4); Monocytes # 0.5 10^3/uL (0.2-0.9); Monocytes % 9.1 %; Neutrophils % 64.4 %; Nucleated Red Blood Cells % 0 %; Platelet Count 198 10^3/cmm (130-400)
[2022-10-28 09:37] LABS: Ammonia 45 umol/L (16-60)
[2022-10-28 09:39] LABS: Alanine Aminotransferase 25 U/L (0-41); Albumin Level 4.4 g/dL (3.5-5.2); Alkaline Phosphatase 54 U/L (40-130); Aspartate Amino Transferase 36 U/L (0-40); Blood Urea Nitrogen 18 mg/dL (6-20); Calcium 9.7 mg/dL (8.5-10.5); Carbon Dioxide 23 mmol/L (22-29); Chloride 104 mmol/L (98-107); Globulin 2.3 g/dL (1.3-4.6); Glucose 99 mg/dL (65-115); Osmolality Calculated 290 mOsm/kg (285-295); Sodium 139 mmol/L (136-145); Total Bilirubin 0.4 mg/dL (0.15-1.2); Total Protein 6.7 g/dL (6.6-8.7)
[2022-10-28 10:01] LABS: Creatine Phosphokinase 497 U/L (39-308)
[2022-10-28 10:02] LABS: Anion Gap 15.9 (5-19); Potassium 3.9 mmol/L (3.5-5.1)
[2022-11-07 11:56] LABS: Basophils # 0.1 10^3/uL (0.0-0.1); Basophils % 0.9 %; Eosinophils # 0.2 10^3/uL (0.0-0.8); Eosinophils % 3.3 %; Hematocrit 49.7 % (42.0-52.0); Lymphocytes # 1.3 10^3/uL (0.8-4.8); Lymphocytes % 22.1 %; Mean Corpuscular HGB Conc 32.2 g/dL (30.0-36.0); Mean Corpuscular Hemoglobin 28.1 pg (28.0-34.0); Mean Corpuscular Volume 87.2 fl (80-94); Mean Platelet Volume 10.4 fL (7.4-10.4); Monocytes # 0.5 10^3/uL (0.2-0.9); Monocytes % 7.8 %; Neutrophils # 3.77 10^3/uL (1.8-7.7); Neutrophils % 65.7 %; Nucleated Red Blood Cells % 0 %; Platelet Count 199 10^3/cmm (130-400); Red Cell Distribution Width 14.5 % (12.1-15.1); White Blood Count 5.7 10^3/uL (4.0-10.0)
[2022-11-07 12:15] LABS: Ammonia 20 umol/L (16-60)
[2022-11-07 12:17] LABS: Alanine Aminotransferase 27 U/L (0-41); Albumin Level 4.6 g/dL (3.5-5.2); Alkaline Phosphatase 59 U/L (40-130); Anion Gap 12.7 (5-19); Aspartate Amino Transferase 29 U/L (0-40); Blood Urea Nitrogen 16 mg/dL (6-20); Calcium 10.1 mg/dL (8.5-10.5); Carbon Dioxide 29 mmol/L (22-29); Chloride 102 mmol/L (98-107); Creatine Phosphokinase 209 U/L (39-308); Globulin 2.3 g/dL (1.3-4.6); Glomerular Filtration Rate 37.9 mL/min (90-130); Glucose 93 mg/dL (65-115); Osmolality Calculated 289 mOsm/kg (285-295); Potassium 4.7 mmol/L (3.5-5.1); Sodium 139 mmol/L (136-145); Total Bilirubin 0.5 mg/dL (0.15-1.2); Total Protein 6.9 g/dL (6.6-8.7)
[2022-11-18 08:29] LABS: Hematocrit 53.1 % (42.0-52.0); Mean Corpuscular Hemoglobin 27.4 pg (28.0-34.0); Mean Corpuscular Volume 85.6 fl (80-94); Mean Platelet Volume 10.2 fL (7.4-10.4); Platelet Count 206 10^3/cmm (130-400); Red Cell Distribution Width 13.6 % (12.1-15.1); White Blood Count 5.8 10^3/uL (4.0-10.0)
[2022-11-18 08:33] LABS: INR 0.85 (0.8-1.2)
[2022-11-18 08:37] LABS: Ammonia 25 umol/L (16-60)
[2022-11-18 08:43] LABS: Alanine Aminotransferase 27 U/L (0-41); Alkaline Phosphatase 69 U/L (40-130); Anion Gap 13.7 (5-19); Aspartate Amino Transferase 31 U/L (0-40); Blood Urea Nitrogen 24 mg/dL (6-20); Calcium 9.5 mg/dL (8.5-10.5); Carbon Dioxide 26 mmol/L (22-29); Chloride 101 mmol/L (98-107); Globulin 2.2 g/dL (1.3-4.6); Glomerular Filtration Rate 33.7 mL/min (90-130); Glucose 104 mg/dL (65-115); Osmolality Calculated 286 mOsm/kg (285-295); Potassium 4.7 mmol/L (3.5-5.1); Sodium 136 mmol/L (136-145); Total Bilirubin 0.5 mg/dL (0.15-1.2); Total Protein 7.2 g/dL (6.6-8.7)
[2022-11-18 09:19] LABS: Absolute Eosinophils 0.2 10^3/cmm (0.0-0.7); Absolute Neutrophil 3.5 10^3/cmm (1.4-6.5); Absolute Segmented Neutrophil 3.5 10/cmm (1.6-7.1); Eosinophils 5 %; Lymphocytes 31 %; Lymphocytes Absolute 1.8 10^3/cmm (1.2-3.4); Monocytes Absolute 0.2 10^3/cmm (0.1-0.6); Platelet Estimate Normal (Normal); Segmented Neutrophils 60 %; Total Cells Counted 100 (0-100)
[2022-11-18 13:54] LABS: Creatine Phosphokinase 321 U/L (39-308)
[2022-11-18 14:14] LABS: CKMB 6.2 ng/mL (0-10.4)
== END 2022-11-26 23:59 | disposition home or self-care (01) ==
LOC: LAB 07:57
PROVIDERS: PCP Family Medicine; Visit Provider Family Medicine
DX: M62.82 Rhabdomyolysis (principal); Z86.718 Personal history of other venous thrombosis and embolism
CPT/HCPCS: 36415; 80053; 82140; 82550; 82553; 85007; 85025; 85027; 85610

== ENCOUNTER 2022-11-24 06:05 | Emergency (ER) | payer MEDICARE, MEDICAID, SELFPAY ==
[2022-11-24 06:09] VITALS: BP 141/92; PULSE 65; RESP 16; O2SAT 99; BMI 23.7
--- NOTE | 2022-11-24 06:11 | ECG_ITS ---
[facility] Test Date: 2022-11-24 Pat Name: Julian Cristobal Department: Room: Gender: Male Backbreaker: : 1975 Requested By: Ni Cerna Order Number: [id number] Ilene MD: Casimiro Cerna M.D. Measurements Intervals Cool Rate: 62 P: 50 NM: 161 QRS: -23 QRSD: 94 T: 28 QT: 402 QTc: 409 Interpretive Statements SINUS RHYTHM BORDERLINE LEFT AXIS DEVIATION [QRS AXIS < -20] VOLTAGE CRITERIA FOR LVH [MEETS CRITERIA IN ONE OF: R(aVL), S(V1), R(V5), R(V5/V6)+S(V1)] Compared to ECG 02/04/2020 05:18:00 T-wave abnormality no longer present Electronically Signed On 11-24-2022 21:43:48 LASER BEAM CUTTER by Casimiro Cerna M.D. [email or web address]
[2022-11-24 06:20] LABS: Glucose Point of Care 105 mg/dL (70-110)
[2022-11-24] MEDS: sodium chloride 0.9% 1,000 ML 999 ML IV (06:24)
[2022-11-24 06:30] LABS: Basophils % 0.6 %; Eosinophils # 0.3 10^3/uL (0.0-0.8); Eosinophils % 5.2 %; Hematocrit 49.6 % (42.0-52.0); Hemoglobin 15.7 g/dL (11.7-16.6); Lymphocytes # 2.5 10^3/uL (0.8-4.8); Lymphocytes % 39.2 %; Mean Corpuscular HGB Conc 31.7 g/dL (30.0-36.0); Mean Corpuscular Hemoglobin 27.9 pg (28.0-34.0); Mean Corpuscular Volume 88.1 fl (80-94); Mean Platelet Volume 10.1 fL (7.4-10.4); Monocytes # 0.7 10^3/uL (0.2-0.9); Monocytes % 10.2 %; Neutrophils # 2.89 10^3/uL (1.8-7.7); Neutrophils % 44.6 %; Nucleated Red Blood Cells % 0 %; Platelet Count 189 10^3/cmm (130-400); Red Blood Count 5.63 10^6/uL (4.1-5.3); Red Cell Distribution Width 13.6 % (12.1-15.1); White Blood Count 6.5 10^3/uL (4.0-10.0)
[2022-11-24 06:52] LABS: Alanine Aminotransferase 26 U/L (0-41); Albumin Level 4.6 g/dL (3.5-5.2); Alkaline Phosphatase 72 U/L (40-130); Aspartate Amino Transferase 29 U/L (0-40); Blood Urea Nitrogen 26 mg/dL (6-20); Calcium 9.7 mg/dL (8.5-10.5); Carbon Dioxide 27 mmol/L (22-29); Chloride 99 mmol/L (98-107); Creatine Phosphokinase 261 U/L (39-308); Globulin 2.4 g/dL (1.3-4.6); Glomerular Filtration Rate 30.4 mL/min (90-130); Glucose 116 mg/dL (65-115); Magnesium 2.3 mg/dL (1.7-2.3); Osmolality Calculated 292 mOsm/kg (285-295); Sodium 138 mmol/L (136-145); Total Bilirubin 0.5 mg/dL (0.15-1.2)
--- NOTE | 2022-11-24 06:53 | ED_ITS ---
HPI - Dizziness General: Chief Complaint: Dizziness Stated Complaint: Lightheaded, Weakness Time Seen by Provider: 11/24/22 06:08 History of Present Illness: HPI Narrative: This patient is a 47 year old presenting with vomiting for two days, itching and near syncope this morning. He has a history of CKD and [place]ord[place]'s disease - and suspects that is the cause of his symptoms. He has not had fever. No abdominal or chest pain. No shortness of breath. He had a cardiac stent placed on 10/24 after an abnormal stress test, and hasn't really felt well since then. He says that due to his muscular disorder he sometimes get a high CK and that causes these symptoms and kidney failure. He is usually treated with IV fluids. His last labs were 7 days ago and were at baseline. His usually has a CK around 300 and his creatinine is usually around 2. 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 Bay disease Metabolic encephalopathy Obstructive sleep apnea Shortness of breath Tremor, unspecified Venous insufficiency (chronic) (peripheral) Vitamin D deficiency, unspecified Surgical History H/O angioplasty H/O arthroscopic knee surgery H/O heart surgery Hx of tonsillectomy S/P hemodialysis catheter insertion Family History Mother , AT AGE 55 Hypertension Diabetes [place]'s disease Father , AT AGE 55 Alcoholism Social History Smoking and tobacco status: current every day smoker cigarettes Packs smoked per day: 0.5 Alcohol intake: current Alcohol intake frequency: holidays/special occasions only Marital status: Current occupational status: disabled History of recent travel: No Physical Exam Const: COMMON NORMALS: no acute distress, patient oriented x3, no limitations and alert GENERAL APPEARANCE: cooperative and comfortable HENMT: HEAD & SCALP: normal to inspection FACE & SINUS: normal facial exam Eye: GENERAL EYE: appearance normal, both eyes and all related structures Neck/C-Spine: COMMON NORMALS: supple, no meningeal signs and no JVD Chest: COMMONS NORMALS: normal inspection of the chest Resp: COMMON NORMALS: normal respiratory effort, No use of accessory muscles and clear to auscultation bilaterally AUSCULTATION: clear to auscultation bilaterally Cardio: COMMON NORMALS: no JVD, regular rate, regular rhythm and No murmurs present (Cardio) RATE: regular rate RHYTHM: regular rhythm GI: COMMON NORMALS: Normal to inspection, nondistended, normoactive bowel sounds present, Soft to palpation and non-tender INSPECTION: Yes normal to inspection AUSCULTATION: Yes normoactive bowel sounds PALPATION: Yes Soft to palpation Back/Pelvis: COMMON NORMALS: thoracic and lumbar spine normal to inspection Extremity: COMMON NORMALS: normal to inspection Neuro: COMMON NORMALS: patient oriented x3, moves all extremities, no focal motor deficits and no sensory deficits noted SENSORIUM/ORIENTATION: Yes alert MENINGEAL SIGNS: Yes no meningeal signs Psych: COMMON NORMALS: mental status grossly normal, cooperative and normal affect Skin: COMMON NORMALS: no rashes or lesions noted and turgor normal GENERAL SKIN EXAM: no rashes or lesions noted and turgor normal Course Vital Signs: Vital signs: Vital Signs Pulse Rate 56 L 11/24/22 08:12 Respiratory Rate 18 11/24/22 08:12 Blood Pressure 141/92 11/24/22 08:12 Pulse Oximetry 99 11/24/22 08:12 Oxygen Delivery Me thod 11/24/22 07:35 MDM - Dizziness Medical Decision Making Patient and are quite knowledgeable about his medical history and I suspect their impression as to the cause of his symptoms is likely correct. However he also had a recent cardiac stent and EKG is needed - labs to include CK and CMP for electrolytes and renal function. Unless EKG is concerning, I don't think a troponin is needed as he is not having chest pain. CBC pending for anemia. IV fluids started empirically for symptoms and based on history of vomiting for two days. Labs good - near baseline. IV fluids given. Orthostatics neg. Patient is feeling well and wants to go home. He notes that his metoprolol dose was increased after his recent stent and wonders if that contributed. His HR is around 60 in the ED. He will monitor this and discuss with his doctor. Lab Data 11/24/22 06:12 11/24/22 06:12 Laboratory Results WBC 6.5 10^3/uL (4.0-10.0) 11/24/22 06:12 RBC 5.63 10^6/uL (4.1-5.3) H 11/24/22 06:12 Hgb 15.7 g/dL (11.7-16.6) 11/24/22 06:12 Hct 49.6 % (42.0-52.0) 11/24/22 06:12 MCV 88.1 fl (80-94) 11/24/22 06:12 MCH 27.9 pg (28.0-34.0) L 11/24/22 06:12 MCHC 31.7 g/dL (30.0-36.0) 11/24/22 06:12 RDW 13.6 % (12.1-15.1) 11/24/22 06:12 Plt Count 189 10^3/cmm (130-400) 11/24/22 06:12 MPV 10.1 fL (7.4-10.4) 11/24/22 06:12 Neut % (Auto) 44.6 % 11/24/22 06:12 Lymph % (Auto) 39.2 % 11/24/22 06:12 [place] % (Auto) 10.2 % 11/24/22 06:12 Eos % (Auto) 5.2 % 11/24/22 06:12 Baso % (Auto) 0.6 % 11/24/22 06:12 Neut # (Auto) 2.89 10^3/uL (1.8-7.7) 11/24/22 06:12 Lymph # (Auto) 2.5 10^3/uL (0.8-4.8) 11/24/22 06:12 [place] # (Auto) 0.7 10^3/uL (0.2-0.9) 11/24/22 06:12 Eos # (Auto) 0.3 10^3/uL (0.0-0.8) 11/24/22 06:12 Baso # (Auto) 0.0 10^3/uL (0.0-0.1) 11/24/22 06:12 Nucleated RBC % (auto) 0 % 11/24/22 06:12 Nucleated RBCs # 0.0 /100WBC 11/24/22 06:12 Sodium 138 mmol/L (136-145) 11/24/22 06:12 Potassium 3.8 mmol/L (3.5-5.1) 11/24/22 06:12 Chloride 99 mmol/L (98-107) 11/24/22 06:12 Carbon Dioxide 27 mmol/L (22-29) 11/24/22 06:12 Anion Gap 15.8 (5-19) 11/24/22 06:12 BUN 26 mg/dL (6-20) H 11/24/22 06:12 Creatinine 2.3 mg/dL (0.7-1.2) H 11/24/22 06:12 GFR Calculation 30.4 mL/min (90-130) L 11/24/22 06:12 Glucose 116 mg/dL (65-115) H 11/24/22 06:12 POC Glucose 105 mg/dL (70-110) 11/24/22 06:18 Calculated Osmolality 292 mOsm/kg (285-295) 11/24/22 06:12 Calcium 9.7 mg/dL (8.5-10.5) 11/24/22 06:12 Magnesium 2.3 mg/dL (1.7-2.3) 11/24/22 06:12 Total Bilirubin 0.5 mg/dL (0.15-1.2) 11/24/22 06:12 AST 29 U/L (0-40) 11/24/22 06:12 ALT 26 U/L (0-41) 11/24/22 06:12 Alkaline Phosphatase 72 U/L (40-130) 11/24/22 06:12 Creatine Kinase 261 U/L (39-308) 11/24/22 06:12 Total Protein 7.0 g/dL (6.6-8.7) 11/24/22 06:12 Albumin 4.6 g/dL (3.5-5.2) 11/24/22 06:12 Globulin 2.4 g/dL (1.3-4.6) 11/24/22 06:12 Discharge Plan Discharge Patient Disposition: Home Clinical Impression: Near syncope, aBy disease, CKD (chronic kidney disease) stage 3, GFR 30-59 ml/min, Vomiting Condition: Stable Prescriptions: No Action aspirin 325 mg tablet 325 mg PO DAILY Brilinta 90 mg tablet 90 mg PO BID Qty: 180 3RF famotidine [Pepcid] 20 mg tablet 20 mg PO DAILY cholecalciferol (vitamin D3) 1,000 unit capsule 1,000 unit PO DAILY amlodipine [Norvasc] 10 mg tablet 10 mg PO DAILY Qty: 90 4RF isosorbide mononitrate 30 mg tablet extended release 24 hr 30 mg PO BID Qty: 90 4RF furosemide [Lasix] 20 mg tablet 20 mg PO BID PRN (Reason: Edema) Qty: 180 4RF metoprolol succinate 25 mg tablet extended release 24 hr 37.5 mg PO DAILY Qty: 135 4RF potassium chloride 20 mEq tablet extended release 20 meq PO DAILY Qty: 90 4RF rosuvastatin 20 mg tablet 20 mg PO .HS Qty: 90 4RF Rx Instructions: Insurance denied Repatha. trazodone 150 mg tablet 150 mg PO .HS Qty: 30 2RF Discharge Orders: Discharge ED (Routine); Ordered 11/24/22 Ordered By: Ni Guy Referrals: Hina Zaragoza DO [Primary Care Provider] - Discharge Diet: Advance as tolerated Discharge Activity: Increase activity as tolerated Patient Instructions: Opioid Safety, Pain Management Activity Restrictions/Additional Instructions: Return to the ED if worse in any way. Continue to drink plenty of fluids. Coding Level of Care Code ED Plater Production for Chg Fwd Exam Comprehensive
--- NOTE | 2022-11-24 07:00 | PC.NURSE ---
pt sitting in bed, visitor at bedside. pt reports feeling better. speech clear, speaking in complete sentences without difficulty. lung sounds clear throughout. pt denies needs at this time.
[2022-11-24 07:08] LABS: Anion Gap 15.8 (5-19); Potassium 3.8 mmol/L (3.5-5.1)
[2022-11-24 07:35] VITALS: BP 130/88; PULSE 61; RESP 16; O2SAT 100
[2022-11-24 07:53] VITALS: BP 122/87; BP 130/88; BP 141/94
--- NOTE | 2022-11-24 07:53 | PC.NURSE ---
orthostatic VS completed by ED resident
[2022-11-24 08:12] VITALS: BP 141/92; PULSE 56; RESP 18; O2SAT 99
== END 2022-11-24 08:13 | disposition home or self-care (01) ==
PROVIDERS: Emergency Provider Emergency Medicine; PCP Family Medicine
DX: R55 Syncope and collapse (principal); R11.11 Vomiting without nausea; E74.04 McArdle disease; I12.9 Hypertensive chronic kidney disease with stage 1 through stage 4 chronic kidney disease, or unspecified chronic kidney disease; N18.9 Chronic kidney disease, unspecified; F17.210 Nicotine dependence, cigarettes, uncomplicated; Z79.82 Long term (current) use of aspirin
CPT/HCPCS: 36416; 80053; 82550; 82962; 83735; 85025; 93005; 96360; 99284; J7030

== ENCOUNTER 2022-11-27 06:00 | Outpatient (RCR) | payer MEDICARE, MEDICAID, SELFPAY | END 2022-12-19 12:17 | disposition home or self-care (01) | LOC: SOT 06:00 | PROVIDERS: PCP Family Medicine; Visit Provider Orthopaedic Surgery | DX: S66.124D Laceration of flexor muscle, fascia and tendon of right ring finger at wrist and hand level, subsequent encounter (principal); W31.2XXD Contact with powered woodworking and forming machines, subsequent encounter | CPT/HCPCS: 97018; 97140 ==

== ENCOUNTER 2022-12-16 09:17 | Outpatient (CLI) | payer MEDICARE, MEDICAID, SELFPAY ==
[2022-12-16 09:43] LABS: Basophils % 0.6 %; Eosinophils # 0.1 10^3/uL (0.0-0.8); Eosinophils % 2.5 %; Hematocrit 45.3 % (42.0-52.0); Hemoglobin 14.9 g/dL (11.7-16.6); Lymphocytes # 1.3 10^3/uL (0.8-4.8); Lymphocytes % 23.7 %; Mean Corpuscular HGB Conc 32.9 g/dL (30.0-36.0); Mean Corpuscular Hemoglobin 28.4 pg (28.0-34.0); Mean Corpuscular Volume 86.3 fl (80-94); Mean Platelet Volume 9.8 fL (7.4-10.4); Monocytes # 0.3 10^3/uL (0.2-0.9); Monocytes % 6.5 %; Neutrophils % 66.3 %; Nucleated Red Blood Cells % 0 %; Platelet Count 188 10^3/cmm (130-400); Red Blood Count 5.25 10^6/uL (4.1-5.3); Red Cell Distribution Width 14.4 % (12.1-15.1); White Blood Count 5.3 10^3/uL (4.0-10.0)
[2022-12-16 09:56] LABS: Ammonia 25 umol/L (16-60)
[2022-12-16 09:57] LABS: Alanine Aminotransferase 20 U/L (0-41); Albumin Level 4.5 g/dL (3.5-5.2); Alkaline Phosphatase 55 U/L (40-130); Anion Gap 14.7 (5-19); Aspartate Amino Transferase 23 U/L (0-40); Blood Urea Nitrogen 21 mg/dL (6-20); Calcium 9.2 mg/dL (8.5-10.5); Carbon Dioxide 25 mmol/L (22-29); Chloride 103 mmol/L (98-107); Creatine Phosphokinase 236 U/L (39-308); Glucose 128 mg/dL (65-115); Osmolality Calculated 293 mOsm/kg (285-295); Potassium 3.7 mmol/L (3.5-5.1); Sodium 139 mmol/L (136-145); Total Bilirubin 0.4 mg/dL (0.15-1.2); Total Protein 6.5 g/dL (6.6-8.7)
== END 2022-12-16 09:18 | disposition home or self-care (01) ==
PROVIDERS: PCP Family Medicine; Visit Provider Family Medicine
DX: M62.82 Rhabdomyolysis (principal)
CPT/HCPCS: 36415; 80053; 82140; 82550; 85025

== ENCOUNTER 2022-12-23 08:41 | Outpatient (RCR) | payer MEDICARE, MEDICAID, SELFPAY ==
[2022-12-05 07:55] LABS: Basophils % 0.8 %; Eosinophils # 0.2 10^3/uL (0.0-0.8); Eosinophils % 3.4 %; Hematocrit 48.8 % (42.0-52.0); Hemoglobin 15.6 g/dL (11.7-16.6); Lymphocytes # 1.3 10^3/uL (0.8-4.8); Lymphocytes % 23.9 %; Mean Corpuscular Hemoglobin 27.7 pg (28.0-34.0); Mean Corpuscular Volume 86.5 fl (80-94); Mean Platelet Volume 9.7 fL (7.4-10.4); Monocytes # 0.4 10^3/uL (0.2-0.9); Neutrophils # 3.33 10^3/uL (1.8-7.7); Neutrophils % 63.7 %; Nucleated Red Blood Cells % 0 %; Platelet Count 201 10^3/cmm (130-400); Red Blood Count 5.64 10^6/uL (4.1-5.3); Red Cell Distribution Width 13.8 % (12.1-15.1); White Blood Count 5.2 10^3/uL (4.0-10.0)
[2022-12-05 08:13] LABS: Alanine Aminotransferase 24 U/L (0-41); Albumin Level 4.8 g/dL (3.5-5.2); Alkaline Phosphatase 57 U/L (40-130); Aspartate Amino Transferase 25 U/L (0-40); Blood Urea Nitrogen 22 mg/dL (6-20); Calcium 9.3 mg/dL (8.5-10.5); Carbon Dioxide 25 mmol/L (22-29); Chloride 103 mmol/L (98-107); Creatine Phosphokinase 190 U/L (39-308); Glomerular Filtration Rate 35.7 mL/min (90-130); Glucose 88 mg/dL (65-115); Osmolality Calculated 289 mOsm/kg (285-295); Sodium 138 mmol/L (136-145); Total Bilirubin 0.5 mg/dL (0.15-1.2); Total Protein 6.8 g/dL (6.6-8.7)
[2022-12-05 08:17] LABS: Anion Gap 14.4 (5-19); Potassium 4.4 mmol/L (3.5-5.1)
[2022-12-05 08:21] LABS: Ammonia 23 umol/L (16-60)
--- NOTE | 2022-12-10 | XRR_ITS ---
PROCEDURE INFORMATION: Exam: XR Chest Exam date and time: 12/10/2022 3:10 PM Age: 47 years old Clinical indication: Shortness of breath TECHNIQUE: Imaging protocol: Radiologic exam of the chest. Views: 2 views. COMPARISON: CR XR chest 1V [id number] 10/14/2019 4:41 AM FINDINGS: Lungs: Lungs are normally inflated. No focal infiltrate is identified. Pleural spaces: Unremarkable. No pleural effusion. No pneumothorax. Heart/Mediastinum: Heart is within normal limits of size. Coronary stents are noted. Bones/joints: Mild degenerative changes in the thoracic spine. XR/XR chest 2V* [id number] IMPRESSION: No acute infiltrate.
[2022-12-10 10:03] LABS: Basophils % 0.7 %; Eosinophils # 0.1 10^3/uL (0.0-0.8); Eosinophils % 2.1 %; Hematocrit 46.3 % (42.0-52.0); Hemoglobin 15.5 g/dL (11.7-16.6); Lymphocytes # 1.5 10^3/uL (0.8-4.8); Lymphocytes % 25.1 %; Mean Corpuscular HGB Conc 33.5 g/dL (30.0-36.0); Mean Corpuscular Hemoglobin 28.7 pg (28.0-34.0); Mean Corpuscular Volume 85.6 fl (80-94); Mean Platelet Volume 9.8 fL (7.4-10.4); Monocytes # 0.5 10^3/uL (0.2-0.9); Monocytes % 7.8 %; Neutrophils # 3.94 10^3/uL (1.8-7.7); Neutrophils % 64.1 %; Nucleated Red Blood Cells % 0 %; Platelet Count 233 10^3/cmm (130-400); Red Blood Count 5.41 10^6/uL (4.1-5.3); Red Cell Distribution Width 14.1 % (12.1-15.1); White Blood Count 6.1 10^3/uL (4.0-10.0)
[2022-12-10 10:14] LABS: Ammonia 29 umol/L (16-60)
[2022-12-10 10:20] LABS: Alanine Aminotransferase 22 U/L (0-41); Albumin Level 4.9 g/dL (3.5-5.2); Alkaline Phosphatase 58 U/L (40-130); Anion Gap 18.1 (5-19); Aspartate Amino Transferase 21 U/L (0-40); Blood Urea Nitrogen 27 mg/dL (6-20); Calcium 9.7 mg/dL (8.5-10.5); Carbon Dioxide 22 mmol/L (22-29); Chloride 104 mmol/L (98-107); Creatine Phosphokinase 164 U/L (39-308); Glomerular Filtration Rate 35.7 mL/min (90-130); Glucose 97 mg/dL (65-115); Osmolality Calculated 295 mOsm/kg (285-295); Potassium 4.1 mmol/L (3.5-5.1); Sodium 140 mmol/L (136-145); Testosterone Total 453.5 ng/dL (249-836); Total Bilirubin 0.4 mg/dL (0.15-1.2); Total Protein 6.9 g/dL (6.6-8.7)
[2022-12-10 12:21] LABS: 25 Hydroxy Vitamin D 35 ng/mL (30-100)
[2022-12-13 14:44] LABS: Testosterone, Free 53.9 pg/mL (46.0-224.0)
[2022-12-23 09:25] LABS: Basophils % 0.5 %; Eosinophils # 0.2 10^3/uL (0.0-0.8); Eosinophils % 3.1 %; Hematocrit 46.5 % (42.0-52.0); Hemoglobin 15.1 g/dL (11.7-16.6); Lymphocytes # 1.5 10^3/uL (0.8-4.8); Mean Corpuscular HGB Conc 32.5 g/dL (30.0-36.0); Mean Corpuscular Hemoglobin 28.3 pg (28.0-34.0); Mean Corpuscular Volume 87.2 fl (80-94); Mean Platelet Volume 9.8 fL (7.4-10.4); Monocytes # 0.4 10^3/uL (0.2-0.9); Monocytes % 7.9 %; Neutrophils # 3.41 10^3/uL (1.8-7.7); Neutrophils % 61.3 %; Nucleated Red Blood Cells % 0 %; Platelet Count 178 10^3/cmm (130-400); Red Blood Count 5.33 10^6/uL (4.1-5.3); Red Cell Distribution Width 14.3 % (12.1-15.1); White Blood Count 5.6 10^3/uL (4.0-10.0)
[2022-12-23 09:41] LABS: Alanine Aminotransferase 28 U/L (0-41); Albumin Level 4.9 g/dL (3.5-5.2); Alkaline Phosphatase 60 U/L (40-130); Anion Gap 14.3 (5-19); Aspartate Amino Transferase 34 U/L (0-40); Blood Urea Nitrogen 23 mg/dL (6-20); Calcium 9.5 mg/dL (8.5-10.5); Carbon Dioxide 26 mmol/L (22-29); Chloride 101 mmol/L (98-107); Globulin 2.2 g/dL (1.3-4.6); Glomerular Filtration Rate 30.4 mL/min (90-130); Glucose 94 mg/dL (65-115); Osmolality Calculated 287 mOsm/kg (285-295); Potassium 4.3 mmol/L (3.5-5.1); Sodium 137 mmol/L (136-145); Total Bilirubin 0.5 mg/dL (0.15-1.2); Total Protein 7.1 g/dL (6.6-8.7)
[2022-12-23 09:42] LABS: Ammonia 23 umol/L (16-60)
[2022-12-23 16:07] LABS: Creatine Phosphokinase 460 U/L (39-308)
[2022-12-23 16:44] LABS: CKMB 8.5 ng/mL (0-10.4); CKMB Relative Index 1.8 % (0.0-5.3)
== END 2022-12-24 23:59 | disposition home or self-care (01) ==
LOC: LAB 08:41
PROVIDERS: PCP Family Medicine; Visit Provider Family Medicine
DX: E55.9 Vitamin D deficiency, unspecified (principal); M62.82 Rhabdomyolysis; R06.02 Shortness of breath; Z86.718 Personal history of other venous thrombosis and embolism; Z79.899 Other long term (current) drug therapy
CPT/HCPCS: 36415; 71046; 80053; 82140; 82306; 82550; 82553; 84153; 84402; 84403; 85025

== ENCOUNTER 2022-12-25 07:46 | Outpatient (CLI) | payer MEDICARE, MEDICAID, SELFPAY ==
--- NOTE | 2022-12-25 08:00 | USCV_ITS ---
Julian Cristobal Age: 47 Gender: M : 1975 Exam Date: 12/25/2022 08:19 Ordering Phys: Casimiro Cerna M.D ([email or web address]) Technologist: Sybil Segundo [place] [facility] [place]: Recent Stent Increasingly Short of Breath BP: 122 / 70 HR: 61 Rhythm: Sinus Technical Quality: Adequate MEASUREMENTS (Male / Female) Normal Values 2D ECHO LV Diastolic Diameter PLAX 4.3 cm 4.2 - 5.9 / 3.9 - 5.3 cm LV Systolic Diameter PLAX 3.4 cm LV Chamber Size 3.5 cm IVS Diastolic Thickness 0.8 cm 0.6 - 1.0 / 0.6 - 0.9 cm IVS Systolic Thickness 0.9 cm LVPW Diastolic Thickness 1.0 cm 0.6 - 1.0 / 0.6 - 0.9 cm LVPW Systolic Thickness 1.5 cm RV Chamber Size 2.9 cm LVOT Diameter 2.0 cm LV Ejection Fraction 2D Teich 43.2 % LV Ejection Fraction MOD 2C 62.3 % LV Ejection Fraction 2C AL 61.8 % LA Diameter 3.3 cm LA Width 3.0 cm LA Height 3.5 cm RA Width 3.9 cm RA Height 2.8 cm Aorta at Sinotubular Diameter 3.4 cm IVC Diameter 1.9 cm M-MODE Aortic Annulus Diameter 4.0 cm LA Ao Ratio MM 0.9 DOPPLER AV Peak Velocity 131.7 cm/s LVOT Peak Velocity 82.0 cm/s AV Area Cont Eq vti 2.1 cm squared AV Area Cont Eq pk 2.0 cm squared MV Area PHT 3.0 cm squared Mitral E to A Ratio 1.1 MV E' Velocity 50.6 cm/s Mitral E to MV E' Ratio 8.6 Mitral E to LV E' Lateral Ratio 8.8 Mitral E to LV E' Septal Ratio 8.4 TR Peak Velocity 73.6 cm/s TR Peak Gradient 2.2 mmHg TR Mean Velocity 75.9 cm/s TR Mean Gradient 2.6 mmHg TR Velocity Time Integral 23.8 cm TV Peak E Velocity 70.0 cm/s Right Atrial Pressure 3.0 mmHg Pulmonary Artery Systolic Pressu 5.2 mmHg FINDINGS Left Ventricle Left ventricle is normal in size. LV systolic function is normal with EF of 55 to 60%. No regional wall abnormalities are seen. Grade 1 diastolic dysfucntion Right Ventricle Normal in size and function Right Atrium Normal in size Left Atrium Normal in size Mitral Valve Structurally normal mitral valve. Aortic Valve Structurally normal aortic valve. No significant stenosis or regurgitation. Tricuspid Valve Mild tricuspid regurgitation. Pulmonary artery systolic pressure is normal. Pulmonic Valve Not well visualized. Trace pulmonic regurgitation. Pericardium Normal Aorta Mildly dilated aortic root IVC Appears to be normal CONCLUSIONS LV systolic function is normal with EF of 55-60% Grade 1 diastolic dysfunction Mild tricuspid regurgitation Trace pulmonic regurgitation Mildly dilated aortic root Compared to prior echocardiogram from 2020, no significant changes are noted Casimiro Cerna MD (Electronically Signed) Final Date: 28 December 2022 20:59 S
== END 2022-12-25 07:47 | disposition home or self-care (01) ==
LOC: RAD 07:55
PROVIDERS: PCP Family Medicine; Visit Provider Internal Medicine
DX: I37.1 Nonrheumatic pulmonary valve insufficiency (principal); I07.1 Rheumatic tricuspid insufficiency
CPT/HCPCS: 93306

== ENCOUNTER 2023-01-21 08:24 | Outpatient (RCR) | payer MEDICARE, MEDICAID, SELFPAY ==
[2022-12-30 08:55] LABS: Basophils % 0.8 %; Eosinophils # 0.1 10^3/uL (0.0-0.8); Eosinophils % 1.7 %; Hematocrit 43.6 % (42.0-52.0); Hemoglobin 14.1 g/dL (11.7-16.6); Lymphocytes # 1.2 10^3/uL (0.8-4.8); Lymphocytes % 22.2 %; Mean Corpuscular HGB Conc 32.3 g/dL (30.0-36.0); Mean Corpuscular Hemoglobin 28.3 pg (28.0-34.0); Mean Corpuscular Volume 87.4 fl (80-94); Mean Platelet Volume 9.5 fL (7.4-10.4); Monocytes # 0.4 10^3/uL (0.2-0.9); Monocytes % 8.3 %; Neutrophils # 3.46 10^3/uL (1.8-7.7); Neutrophils % 66.8 %; Nucleated Red Blood Cells % 0 %; Platelet Count 195 10^3/cmm (130-400); Red Blood Count 4.99 10^6/uL (4.1-5.3); Red Cell Distribution Width 14.4 % (12.1-15.1); White Blood Count 5.2 10^3/uL (4.0-10.0)
[2022-12-30 09:18] LABS: Ammonia 21 umol/L (16-60)
[2022-12-30 09:27] LABS: Alanine Aminotransferase 28 U/L (0-41); Albumin Level 4.4 g/dL (3.5-5.2); Alkaline Phosphatase 51 U/L (40-130); Aspartate Amino Transferase 30 U/L (0-40); Blood Urea Nitrogen 15 mg/dL (6-20); Calcium 9.1 mg/dL (8.5-10.5); Carbon Dioxide 25 mmol/L (22-29); Chloride 105 mmol/L (98-107); Creatine Phosphokinase 241 U/L (39-308); Globulin 1.8 g/dL (1.3-4.6); Glomerular Filtration Rate 37.9 mL/min (90-130); Glucose 104 mg/dL (65-115); Osmolality Calculated 291 mOsm/kg (285-295); Sodium 140 mmol/L (136-145); Total Bilirubin 0.4 mg/dL (0.15-1.2); Total Protein 6.2 g/dL (6.6-8.7)
[2023-01-13 09:06] LABS: Basophils % 0.7 %; Eosinophils # 0.1 10^3/uL (0.0-0.8); Eosinophils % 1.6 %; Hematocrit 46.7 % (42.0-52.0); Hemoglobin 14.9 g/dL (11.7-16.6); Lymphocytes # 1.5 10^3/uL (0.8-4.8); Lymphocytes % 26.8 %; Mean Corpuscular HGB Conc 31.9 g/dL (30.0-36.0); Mean Corpuscular Hemoglobin 27.3 pg (28.0-34.0); Mean Corpuscular Volume 85.5 fl (80-94); Mean Platelet Volume 9.7 fL (7.4-10.4); Monocytes # 0.5 10^3/uL (0.2-0.9); Monocytes % 8.2 %; Neutrophils # 3.51 10^3/uL (1.8-7.7); Neutrophils % 62.3 %; Nucleated Red Blood Cells % 0 %; Platelet Count 213 10^3/cmm (130-400); Red Blood Count 5.46 10^6/uL (4.1-5.3); Red Cell Distribution Width 13.6 % (12.1-15.1); White Blood Count 5.6 10^3/uL (4.0-10.0)
[2023-01-13 09:33] LABS: Ammonia 24 umol/L (16-60)
[2023-01-13 09:37] LABS: Alanine Aminotransferase 19 U/L (0-41); Albumin Level 4.7 g/dL (3.5-5.2); Alkaline Phosphatase 55 U/L (40-130); Anion Gap 14.4 (5-19); Aspartate Amino Transferase 18 U/L (0-40); Blood Urea Nitrogen 21 mg/dL (6-20); Calcium 9.5 mg/dL (8.5-10.5); Carbon Dioxide 24 mmol/L (22-29); Chloride 107 mmol/L (98-107); Creatine Phosphokinase 167 U/L (39-308); Glomerular Filtration Rate 37.9 mL/min (90-130); Glucose 102 mg/dL (65-115); Osmolality Calculated 295 mOsm/kg (285-295); Potassium 4.4 mmol/L (3.5-5.1); Sodium 141 mmol/L (136-145); Total Bilirubin 0.3 mg/dL (0.15-1.2); Total Protein 6.7 g/dL (6.6-8.7)
[2023-01-21 08:48] LABS: Basophils % 0.5 %; Eosinophils # 0.2 10^3/uL (0.0-0.8); Eosinophils % 2.4 %; Hematocrit 41.5 % (42.0-52.0); Hemoglobin 13.2 g/dL (11.7-16.6); Lymphocytes # 1.3 10^3/uL (0.8-4.8); Lymphocytes % 17.7 %; Mean Corpuscular HGB Conc 31.8 g/dL (30.0-36.0); Mean Corpuscular Hemoglobin 27.2 pg (28.0-34.0); Mean Corpuscular Volume 85.4 fl (80-94); Mean Platelet Volume 9.9 fL (7.4-10.4); Monocytes # 0.6 10^3/uL (0.2-0.9); Monocytes % 8.2 %; Neutrophils # 5.28 10^3/uL (1.8-7.7); Neutrophils % 70.8 %; Nucleated Red Blood Cells % 0 %; Platelet Count 220 10^3/cmm (130-400); Red Blood Count 4.86 10^6/uL (4.1-5.3); Red Cell Distribution Width 14.3 % (12.1-15.1); White Blood Count 7.5 10^3/uL (4.0-10.0)
[2023-01-21 09:10] LABS: Ammonia 43 umol/L (16-60)
[2023-01-21 09:12] LABS: Alanine Aminotransferase 20 U/L (0-41); Albumin Level 4.1 g/dL (3.5-5.2); Alkaline Phosphatase 46 U/L (40-130); Anion Gap 13.6 (5-19); Aspartate Amino Transferase 29 U/L (0-40); Blood Urea Nitrogen 17 mg/dL (6-20); Calcium 8.9 mg/dL (8.5-10.5); Carbon Dioxide 25 mmol/L (22-29); Chloride 106 mmol/L (98-107); Glucose 83 mg/dL (65-115); Osmolality Calculated 293 mOsm/kg (285-295); Potassium 3.6 mmol/L (3.5-5.1); Sodium 141 mmol/L (136-145); Total Bilirubin 0.4 mg/dL (0.15-1.2); Total Protein 6.1 g/dL (6.6-8.7)
[2023-01-21 09:53] LABS: Creatine Phosphokinase 588 U/L (39-308)
== END 2023-01-24 23:59 | disposition home or self-care (01) ==
LOC: LAB 08:24
PROVIDERS: PCP Family Medicine; Visit Provider Family Medicine
DX: E55.9 Vitamin D deficiency, unspecified (principal); Z86.718 Personal history of other venous thrombosis and embolism; M62.82 Rhabdomyolysis; Z79.899 Other long term (current) drug therapy
CPT/HCPCS: 36415; 80053; 82140; 82550; 85025; 99214

== ENCOUNTER 2023-01-27 07:46 | Outpatient (CLI) | payer MEDICARE, MEDICAID, SELFPAY ==
[2023-01-27 08:20] LABS: Basophils % 0.6 %; Eosinophils # 0.2 10^3/uL (0.0-0.8); Eosinophils % 3.3 %; Lymphocytes # 1.3 10^3/uL (0.8-4.8); Lymphocytes % 20.7 %; Mean Corpuscular HGB Conc 32.6 g/dL (30.0-36.0); Mean Corpuscular Hemoglobin 27.9 pg (28.0-34.0); Mean Corpuscular Volume 85.7 fl (80-94); Mean Platelet Volume 9.4 fL (7.4-10.4); Monocytes # 0.6 10^3/uL (0.2-0.9); Monocytes % 9.2 %; Neutrophils # 4.18 10^3/uL (1.8-7.7); Nucleated Red Blood Cells % 0 %; Platelet Count 223 10^3/cmm (130-400); Red Blood Count 5.02 10^6/uL (4.1-5.3); Red Cell Distribution Width 14.9 % (12.1-15.1); White Blood Count 6.3 10^3/uL (4.0-10.0)
[2023-01-27 08:38] LABS: Alanine Aminotransferase 26 U/L (0-41); Albumin Level 4.3 g/dL (3.5-5.2); Alkaline Phosphatase 48 U/L (40-130); Anion Gap 11.7 (5-19); Aspartate Amino Transferase 37 U/L (0-40); Blood Urea Nitrogen 17 mg/dL (6-20); Calcium 8.7 mg/dL (8.5-10.5); Carbon Dioxide 24 mmol/L (22-29); Chloride 103 mmol/L (98-107); Globulin 2.2 g/dL (1.3-4.6); Glucose 104 mg/dL (65-115); Osmolality Calculated 282 mOsm/kg (285-295); Potassium 3.7 mmol/L (3.5-5.1); Sodium 135 mmol/L (136-145); Total Bilirubin 0.4 mg/dL (0.15-1.2); Total Protein 6.5 g/dL (6.6-8.7)
[2023-01-27 08:39] LABS: Ammonia 25 umol/L (16-60)
[2023-01-27 14:15] LABS: Creatine Phosphokinase 480 U/L (39-308)
== END 2023-01-27 07:47 | disposition home or self-care (01) ==
LOC: LAB 07:51
PROVIDERS: PCP Family Medicine; Visit Provider Family Medicine
DX: Z01.89 Encounter for other specified special examinations (principal)
CPT/HCPCS: 36415; 80053; 82140; 82550; 85025

== ENCOUNTER 2023-02-07 11:36 | Outpatient (CLI) | payer MEDICARE, MEDICAID, SELFPAY | END 2023-02-07 11:37 | disposition home or self-care (01) | PROVIDERS: PCP Family Medicine; Visit Provider Nurse Practitioner Family | DX: R06.02 Shortness of breath (principal) | CPT/HCPCS: 94010; 94726; 94729 ==

== ENCOUNTER 2023-02-10 08:37 | Outpatient (RCR) | payer MEDICARE, MEDICAID, SELFPAY ==
[2023-02-03 07:21] LABS: Basophils # 0.1 10^3/uL (0.0-0.1); Basophils % 0.8 %; Eosinophils # 0.2 10^3/uL (0.0-0.8); Eosinophils % 3.1 %; Hematocrit 46.1 % (42.0-52.0); Hemoglobin 14.5 g/dL (11.7-16.6); Lymphocytes # 1.5 10^3/uL (0.8-4.8); Lymphocytes % 24.4 %; Mean Corpuscular HGB Conc 31.5 g/dL (30.0-36.0); Mean Corpuscular Hemoglobin 26.6 pg (28.0-34.0); Mean Corpuscular Volume 84.6 fl (80-94); Monocytes # 0.6 10^3/uL (0.2-0.9); Monocytes % 9.3 %; Neutrophils % 62.2 %; Nucleated Red Blood Cells % 0 %; Platelet Count 223 10^3/cmm (130-400); Red Blood Count 5.45 10^6/uL (4.1-5.3); Red Cell Distribution Width 14.1 % (12.1-15.1); White Blood Count 6.1 10^3/uL (4.0-10.0)
[2023-02-03 07:41] LABS: Alanine Aminotransferase 28 U/L (0-41); Albumin Level 4.8 g/dL (3.5-5.2); Alkaline Phosphatase 57 U/L (40-130); Ammonia 19 umol/L (16-60); Anion Gap 12.3 (5-19); Aspartate Amino Transferase 30 U/L (0-40); Blood Urea Nitrogen 26 mg/dL (6-20); Calcium 9.4 mg/dL (8.5-10.5); Carbon Dioxide 26 mmol/L (22-29); Chloride 99 mmol/L (98-107); Globulin 1.9 g/dL (1.3-4.6); Glucose 105 mg/dL (65-115); Osmolality Calculated 281 mOsm/kg (285-295); Potassium 4.3 mmol/L (3.5-5.1); Sodium 133 mmol/L (136-145); Total Bilirubin 0.3 mg/dL (0.15-1.2); Total Protein 6.7 g/dL (6.6-8.7)
[2023-02-03 10:02] LABS: Creatine Phosphokinase 419 U/L (39-308)
[2023-02-10 09:08] LABS: Basophils % 0.5 %; Eosinophils # 0.1 10^3/uL (0.0-0.8); Eosinophils % 2.2 %; Hematocrit 45.8 % (42.0-52.0); Hemoglobin 14.2 g/dL (11.7-16.6); Lymphocytes # 1.4 10^3/uL (0.8-4.8); Lymphocytes % 22.2 %; Mean Corpuscular Volume 87.1 fl (80-94); Mean Platelet Volume 10.2 fL (7.4-10.4); Monocytes # 0.4 10^3/uL (0.2-0.9); Monocytes % 6.6 %; Neutrophils # 4.31 10^3/uL (1.8-7.7); Neutrophils % 68.2 %; Nucleated Red Blood Cells % 0 %; Platelet Count 202 10^3/cmm (130-400); Red Blood Count 5.26 10^6/uL (4.1-5.3); White Blood Count 6.3 10^3/uL (4.0-10.0)
[2023-02-10 09:28] LABS: Alanine Aminotransferase 37 U/L (0-41); Albumin Level 4.5 g/dL (3.5-5.2); Alkaline Phosphatase 58 U/L (40-130); Ammonia 34 umol/L (16-60); Anion Gap 13.9 (5-19); Aspartate Amino Transferase 33 U/L (0-40); Blood Urea Nitrogen 20 mg/dL (6-20); Carbon Dioxide 21 mmol/L (22-29); Chloride 103 mmol/L (98-107); Creatine Phosphokinase 192 U/L (39-308); Glomerular Filtration Rate 35.7 mL/min (90-130); Glucose 102 mg/dL (65-115); Osmolality Calculated 281 mOsm/kg (285-295); Potassium 3.9 mmol/L (3.5-5.1); Sodium 134 mmol/L (136-145); Total Bilirubin 0.4 mg/dL (0.15-1.2); Total Protein 6.5 g/dL (6.6-8.7)
== END 2023-02-23 23:59 | disposition home or self-care (01) ==
LOC: LAB 08:37
PROVIDERS: PCP Family Medicine; Visit Provider Family Medicine
DX: M62.82 Rhabdomyolysis (principal)
CPT/HCPCS: 36415; 80053; 82140; 82550; 85025

== ENCOUNTER 2023-02-20 08:01 | Outpatient (RCR) | payer MEDICARE, MEDICAID, SELFPAY ==
[2023-02-20 08:35] LABS: Basophils % 0.6 %; Eosinophils # 0.1 10^3/uL (0.0-0.8); Eosinophils % 2.4 %; Hematocrit 43.5 % (42.0-52.0); Hemoglobin 13.9 g/dL (11.7-16.6); Lymphocytes # 0.7 10^3/uL (0.8-4.8); Lymphocytes % 14.6 %; Mean Corpuscular Hemoglobin 26.9 pg (28.0-34.0); Mean Corpuscular Volume 84.3 fl (80-94); Mean Platelet Volume 9.7 fL (7.4-10.4); Monocytes # 0.5 10^3/uL (0.2-0.9); Monocytes % 10.6 %; Neutrophils # 3.58 10^3/uL (1.8-7.7); Neutrophils % 71.6 %; Nucleated Red Blood Cells % 0 %; Platelet Count 201 10^3/cmm (130-400); Red Blood Count 5.16 10^6/uL (4.1-5.3)
[2023-02-20 08:51] LABS: Ammonia 31 umol/L (16-60)
[2023-02-20 08:53] LABS: Alanine Aminotransferase 20 U/L (0-41); Albumin Level 4.4 g/dL (3.5-5.2); Alkaline Phosphatase 46 U/L (40-130); Anion Gap 13.2 (5-19); Aspartate Amino Transferase 23 U/L (0-40); Blood Urea Nitrogen 19 mg/dL (6-20); Calcium 8.7 mg/dL (8.5-10.5); Carbon Dioxide 22 mmol/L (22-29); Chloride 108 mmol/L (98-107); Creatine Phosphokinase 294 U/L (39-308); Glomerular Filtration Rate 33.7 mL/min (90-130); Glucose 92 mg/dL (65-115); Osmolality Calculated 290 mOsm/kg (285-295); Potassium 4.2 mmol/L (3.5-5.1); Sodium 139 mmol/L (136-145); Total Bilirubin 0.5 mg/dL (0.15-1.2); Total Protein 6.4 g/dL (6.6-8.7)
== END 2023-02-23 23:59 | disposition home or self-care (01) ==
LOC: LAB 08:01
PROVIDERS: PCP Family Medicine; Visit Provider Family Medicine
DX: M62.82 Rhabdomyolysis (principal)
CPT/HCPCS: 36415; 80053; 82140; 82550; 85025

== ENCOUNTER 2023-03-25 07:09 | Outpatient (RCR) | payer MEDICARE, MEDICAID, SELFPAY ==
[2023-03-03 07:58] LABS: Basophils % 0.4 %; Eosinophils # 0.2 10^3/uL (0.0-0.8); Eosinophils % 1.7 %; Hematocrit 43.9 % (42.0-52.0); Hemoglobin 13.7 g/dL (11.7-16.6); Lymphocytes # 1.1 10^3/uL (0.8-4.8); Lymphocytes % 11.3 %; Mean Corpuscular HGB Conc 31.2 g/dL (30.0-36.0); Mean Corpuscular Hemoglobin 26.5 pg (28.0-34.0); Mean Corpuscular Volume 84.9 fl (80-94); Monocytes # 0.9 10^3/uL (0.2-0.9); Monocytes % 9.4 %; Neutrophils # 7.25 10^3/uL (1.8-7.7); Neutrophils % 76.9 %; Nucleated Red Blood Cells % 0 %; Platelet Count 163 10^3/cmm (130-400); Red Blood Count 5.17 10^6/uL (4.1-5.3); Red Cell Distribution Width 14.4 % (12.1-15.1); White Blood Count 9.4 10^3/uL (4.0-10.0)
[2023-03-03 08:13] LABS: Ammonia 25 umol/L (16-60)
[2023-03-03 08:14] LABS: Alanine Aminotransferase 28 U/L (0-41); Albumin Level 4.3 g/dL (3.5-5.2); Alkaline Phosphatase 62 U/L (40-130); Anion Gap 14.5 (5-19); Aspartate Amino Transferase 27 U/L (0-40); Blood Urea Nitrogen 23 mg/dL (6-20); Calcium 9.2 mg/dL (8.5-10.5); Carbon Dioxide 25 mmol/L (22-29); Chloride 102 mmol/L (98-107); Creatine Phosphokinase 280 U/L (39-308); Glucose 97 mg/dL (65-115); Osmolality Calculated 288 mOsm/kg (285-295); Potassium 4.5 mmol/L (3.5-5.1); Sodium 137 mmol/L (136-145); Total Bilirubin 0.5 mg/dL (0.15-1.2); Total Protein 6.3 g/dL (6.6-8.7)
[2023-03-10 08:02] LABS: Basophils # 0.1 10^3/uL (0.0-0.1); Basophils % 0.8 %; Eosinophils # 0.2 10^3/uL (0.0-0.8); Eosinophils % 2.2 %; Hematocrit 47.3 % (42.0-52.0); Hemoglobin 14.9 g/dL (11.7-16.6); Lymphocytes # 1.5 10^3/uL (0.8-4.8); Lymphocytes % 17.8 %; Mean Corpuscular HGB Conc 31.5 g/dL (30.0-36.0); Mean Corpuscular Hemoglobin 26.4 pg (28.0-34.0); Mean Corpuscular Volume 83.9 fl (80-94); Mean Platelet Volume 9.9 fL (7.4-10.4); Monocytes # 0.6 10^3/uL (0.2-0.9); Monocytes % 7.2 %; Neutrophils # 6.08 10^3/uL (1.8-7.7); Neutrophils % 71.4 %; Nucleated Red Blood Cells % 0 %; Platelet Count 220 10^3/cmm (130-400); Red Blood Count 5.64 10^6/uL (4.1-5.3); Red Cell Distribution Width 14.3 % (12.1-15.1); White Blood Count 8.5 10^3/uL (4.0-10.0)
[2023-03-10 08:34] LABS: Ammonia 27 umol/L (16-60)
[2023-03-10 08:45] LABS: Alanine Aminotransferase 45 U/L (0-41); Albumin Level 4.5 g/dL (3.5-5.2); Alkaline Phosphatase 63 U/L (40-130); Anion Gap 15.5 (5-19); Aspartate Amino Transferase 45 U/L (0-40); Blood Urea Nitrogen 25 mg/dL (6-20); Calcium 9.1 mg/dL (8.5-10.5); Carbon Dioxide 24 mmol/L (22-29); Chloride 103 mmol/L (98-107); Creatine Phosphokinase 155 U/L (39-308); Globulin 2.3 g/dL (1.3-4.6); Glucose 96 mg/dL (65-115); Osmolality Calculated 290 mOsm/kg (285-295); Potassium 4.5 mmol/L (3.5-5.1); Sodium 138 mmol/L (136-145); Total Bilirubin 0.2 mg/dL (0.15-1.2); Total Protein 6.8 g/dL (6.6-8.7)
[2023-03-17 07:44] LABS: Basophils # 0.1 10^3/uL (0.0-0.1); Basophils % 0.9 %; Eosinophils # 0.1 10^3/uL (0.0-0.8); Eosinophils % 2.3 %; Hemoglobin 13.7 g/dL (11.7-16.6); Lymphocytes # 1.5 10^3/uL (0.8-4.8); Lymphocytes % 25.3 %; Mean Corpuscular HGB Conc 30.4 g/dL (30.0-36.0); Mean Corpuscular Hemoglobin 26.2 pg (28.0-34.0); Mean Corpuscular Volume 86.2 fl (80-94); Mean Platelet Volume 9.9 fL (7.4-10.4); Monocytes # 0.4 10^3/uL (0.2-0.9); Monocytes % 7.7 %; Neutrophils # 3.64 10^3/uL (1.8-7.7); Neutrophils % 63.6 %; Nucleated Red Blood Cells % 0 %; Platelet Count 210 10^3/cmm (130-400); Red Blood Count 5.22 10^6/uL (4.1-5.3); Red Cell Distribution Width 15.4 % (12.1-15.1); White Blood Count 5.7 10^3/uL (4.0-10.0)
[2023-03-17 08:03] LABS: Alanine Aminotransferase 34 U/L (0-41); Albumin Level 4.2 g/dL (3.5-5.2); Alkaline Phosphatase 48 U/L (40-130); Anion Gap 13.4 (5-19); Aspartate Amino Transferase 23 U/L (0-40); Blood Urea Nitrogen 18 mg/dL (6-20); Calcium 8.7 mg/dL (8.5-10.5); Carbon Dioxide 26 mmol/L (22-29); Chloride 106 mmol/L (98-107); Creatine Phosphokinase 253 U/L (39-308); Globulin 1.9 g/dL (1.3-4.6); Glomerular Filtration Rate 35.7 mL/min (90-130); Glucose 94 mg/dL (65-115); Osmolality Calculated 294 mOsm/kg (285-295); Potassium 4.4 mmol/L (3.5-5.1); Sodium 141 mmol/L (136-145); Total Bilirubin 0.3 mg/dL (0.15-1.2); Total Protein 6.1 g/dL (6.6-8.7)
[2023-03-17 08:04] LABS: Ammonia 25 umol/L (16-60)
[2023-03-25 07:29] LABS: Basophils % 0.7 %; Eosinophils # 0.1 10^3/uL (0.0-0.8); Eosinophils % 2.5 %; Hematocrit 43.3 % (42.0-52.0); Hemoglobin 13.6 g/dL (11.7-16.6); Lymphocytes # 0.9 10^3/uL (0.8-4.8); Lymphocytes % 16.3 %; Mean Corpuscular HGB Conc 31.4 g/dL (30.0-36.0); Mean Corpuscular Hemoglobin 26.7 pg (28.0-34.0); Mean Corpuscular Volume 85.1 fl (80-94); Mean Platelet Volume 9.9 fL (7.4-10.4); Monocytes # 0.5 10^3/uL (0.2-0.9); Monocytes % 9.4 %; Neutrophils # 3.91 10^3/uL (1.8-7.7); Neutrophils % 70.9 %; Nucleated Red Blood Cells % 0 %; Platelet Count 236 10^3/cmm (130-400); Red Blood Count 5.09 10^6/uL (4.1-5.3); Red Cell Distribution Width 15.2 % (12.1-15.1); White Blood Count 5.5 10^3/uL (4.0-10.0)
[2023-03-25 07:51] LABS: Alanine Aminotransferase 35 U/L (0-41); Albumin Level 4.2 g/dL (3.5-5.2); Alkaline Phosphatase 52 U/L (40-130); Anion Gap 14.4 (5-19); Aspartate Amino Transferase 44 U/L (0-40); Blood Urea Nitrogen 18 mg/dL (6-20); Calcium 8.5 mg/dL (8.5-10.5); Carbon Dioxide 24 mmol/L (22-29); Chloride 106 mmol/L (98-107); Glomerular Filtration Rate 37.9 mL/min (90-130); Glucose 115 mg/dL (65-115); Osmolality Calculated 293 mOsm/kg (285-295); Potassium 4.4 mmol/L (3.5-5.1); Sodium 140 mmol/L (136-145); Total Bilirubin 0.4 mg/dL (0.15-1.2); Total Protein 6.2 g/dL (6.6-8.7)
[2023-03-25 07:52] LABS: Ammonia 27 umol/L (16-60)
[2023-03-25 09:10] LABS: Creatine Phosphokinase 562 U/L (39-308)
== END 2023-03-26 23:59 | disposition home or self-care (01) ==
LOC: LAB 07:09
PROVIDERS: PCP Family Medicine; Visit Provider Family Medicine
DX: M62.82 Rhabdomyolysis (principal); I10 Essential (primary) hypertension; E74.04 McArdle disease
CPT/HCPCS: 36415; 80053; 82140; 82550; 85025

== ENCOUNTER 2023-04-07 08:37 | Outpatient (CLI) | payer MEDICARE, MEDICAID, SELFPAY ==
[2023-04-07 09:16] LABS: Basophils # 0.1 10^3/uL (0.0-0.1); Eosinophils # 0.2 10^3/uL (0.0-0.8); Eosinophils % 2.6 %; Hemoglobin 15.5 g/dL (11.7-16.6); Lymphocytes # 1.7 10^3/uL (0.8-4.8); Lymphocytes % 27.6 %; Mean Corpuscular HGB Conc 31.6 g/dL (30.0-36.0); Mean Corpuscular Volume 82.2 fl (80-94); Mean Platelet Volume 9.6 fL (7.4-10.4); Monocytes # 0.6 10^3/uL (0.2-0.9); Monocytes % 9.2 %; Neutrophils # 3.67 10^3/uL (1.8-7.7); Neutrophils % 59.3 %; Nucleated Red Blood Cells % 0 %; Platelet Count 206 10^3/cmm (130-400); Red Blood Count 5.96 10^6/uL (4.1-5.3); Red Cell Distribution Width 15.1 % (12.1-15.1); White Blood Count 6.2 10^3/uL (4.0-10.0)
[2023-04-07 09:40] LABS: Alanine Aminotransferase 43 U/L (0-41); Albumin Level 4.9 g/dL (3.5-5.2); Alkaline Phosphatase 60 U/L (40-130); Ammonia 25 umol/L (16-60); Anion Gap 14.8 (5-19); Aspartate Amino Transferase 43 U/L (0-40); Blood Urea Nitrogen 33 mg/dL (6-20); Calcium 9.5 mg/dL (8.5-10.5); Carbon Dioxide 25 mmol/L (22-29); Chloride 98 mmol/L (98-107); Globulin 2.3 g/dL (1.3-4.6); Glomerular Filtration Rate 30.4 mL/min (90-130); Glucose 95 mg/dL (65-115); Osmolality Calculated 285 mOsm/kg (285-295); Potassium 3.8 mmol/L (3.5-5.1); Sodium 134 mmol/L (136-145); Total Bilirubin 0.4 mg/dL (0.15-1.2); Total Protein 7.2 g/dL (6.6-8.7)
[2023-04-07 13:57] LABS: Creatine Phosphokinase 438 U/L (39-308)
== END 2023-04-07 08:38 | disposition home or self-care (01) ==
LOC: LAB 08:41
PROVIDERS: PCP Family Medicine; Visit Provider Family Medicine
DX: E74.04 McArdle disease (principal); I10 Essential (primary) hypertension; M62.82 Rhabdomyolysis
CPT/HCPCS: 36415; 80053; 82140; 82550; 85025

== ENCOUNTER → 2023-04-10 08:49 | Day surgery (SDC) | payer MEDICARE, MEDICAID, SELFPAY ==
[2023-04-10] MEDS: sodium chloride 0.9% 1,000 ML 999 ML IV (09:07)
[2023-04-10 09:10] VITALS: BP 130/106; PULSE 76; RESP 18; TEMP 36.1; O2SAT 97
== END ==
PROVIDERS: PCP Family Medicine; Visit Provider Family Medicine
DX: M62.82 Rhabdomyolysis (principal); E74.04 McArdle disease
CPT/HCPCS: 76937; 96360; J7030

== ENCOUNTER 2023-04-21 08:35 | Outpatient (RCR) | payer MEDICARE, MEDICAID, SELFPAY ==
[2023-03-31 07:59] LABS: Basophils % 0.7 %; Eosinophils # 0.2 10^3/uL (0.0-0.8); Eosinophils % 3.3 %; Hematocrit 44.6 % (42.0-52.0); Lymphocytes # 1.2 10^3/uL (0.8-4.8); Lymphocytes % 21.7 %; Mean Corpuscular HGB Conc 31.4 g/dL (30.0-36.0); Mean Corpuscular Hemoglobin 25.9 pg (28.0-34.0); Mean Corpuscular Volume 82.4 fl (80-94); Mean Platelet Volume 9.8 fL (7.4-10.4); Monocytes # 0.5 10^3/uL (0.2-0.9); Monocytes % 9.5 %; Neutrophils # 3.52 10^3/uL (1.8-7.7); Neutrophils % 64.6 %; Nucleated Red Blood Cells % 0 %; Platelet Count 201 10^3/cmm (130-400); Red Blood Count 5.41 10^6/uL (4.1-5.3); Red Cell Distribution Width 15.1 % (12.1-15.1); White Blood Count 5.5 10^3/uL (4.0-10.0)
[2023-03-31 08:29] LABS: Ammonia 20 umol/L (16-60)
[2023-03-31 08:32] LABS: Alanine Aminotransferase 43 U/L (0-41); Albumin Level 4.5 g/dL (3.5-5.2); Alkaline Phosphatase 63 U/L (40-130); Aspartate Amino Transferase 44 U/L (0-40); Blood Urea Nitrogen 27 mg/dL (6-20); Calcium 9.2 mg/dL (8.5-10.5); Carbon Dioxide 25 mmol/L (22-29); Chloride 101 mmol/L (98-107); Globulin 2.3 g/dL (1.3-4.6); Glomerular Filtration Rate 33.7 mL/min (90-130); Glucose 95 mg/dL (65-115); Osmolality Calculated 287 mOsm/kg (285-295); Sodium 136 mmol/L (136-145); Total Bilirubin 0.3 mg/dL (0.15-1.2); Total Protein 6.8 g/dL (6.6-8.7)
[2023-03-31 13:13] LABS: Creatine Phosphokinase 490 U/L (39-308)
[2023-04-14 07:25] LABS: Basophils % 0.6 %; Eosinophils # 0.2 10^3/uL (0.0-0.8); Eosinophils % 3.1 %; Hematocrit 44.3 % (42.0-52.0); Lymphocytes # 1.3 10^3/uL (0.8-4.8); Lymphocytes % 21.1 %; Mean Corpuscular HGB Conc 31.6 g/dL (30.0-36.0); Mean Corpuscular Hemoglobin 26.1 pg (28.0-34.0); Mean Corpuscular Volume 82.5 fl (80-94); Mean Platelet Volume 10.1 fL (7.4-10.4); Monocytes # 0.5 10^3/uL (0.2-0.9); Monocytes % 8.5 %; Neutrophils # 4.11 10^3/uL (1.8-7.7); Neutrophils % 66.4 %; Nucleated Red Blood Cells % 0 %; Platelet Count 228 10^3/cmm (130-400); Red Blood Count 5.37 10^6/uL (4.1-5.3); Red Cell Distribution Width 15.5 % (12.1-15.1); White Blood Count 6.2 10^3/uL (4.0-10.0)
[2023-04-14 07:44] LABS: Ammonia 24 umol/L (16-60)
[2023-04-14 07:45] LABS: Alanine Aminotransferase 24 U/L (0-41); Albumin Level 4.3 g/dL (3.5-5.2); Alkaline Phosphatase 52 U/L (40-130); Anion Gap 11.3 (5-19); Aspartate Amino Transferase 27 U/L (0-40); Blood Urea Nitrogen 20 mg/dL (6-20); Calcium 8.5 mg/dL (8.5-10.5); Carbon Dioxide 28 mmol/L (22-29); Chloride 104 mmol/L (98-107); Creatine Phosphokinase 269 U/L (39-308); Globulin 1.8 g/dL (1.3-4.6); Glucose 100 mg/dL (65-115); Osmolality Calculated 293 mOsm/kg (285-295); Potassium 3.3 mmol/L (3.5-5.1); Sodium 140 mmol/L (136-145); Total Bilirubin 0.2 mg/dL (0.15-1.2); Total Protein 6.1 g/dL (6.6-8.7)
[2023-04-21 08:56] LABS: Basophils % 0.7 %; Eosinophils # 0.1 10^3/uL (0.0-0.8); Eosinophils % 2.2 %; Hematocrit 44.1 % (42.0-52.0); Hemoglobin 14.1 g/dL (11.7-16.6); Lymphocytes # 1.2 10^3/uL (0.8-4.8); Mean Corpuscular Hemoglobin 25.9 pg (28.0-34.0); Mean Corpuscular Volume 80.9 fl (80-94); Mean Platelet Volume 9.5 fL (7.4-10.4); Monocytes # 0.6 10^3/uL (0.2-0.9); Monocytes % 10.5 %; Neutrophils # 3.61 10^3/uL (1.8-7.7); Neutrophils % 65.4 %; Nucleated Red Blood Cells % 0 %; Platelet Count 240 10^3/cmm (130-400); Red Blood Count 5.45 10^6/uL (4.1-5.3); Red Cell Distribution Width 15.8 % (12.1-15.1); White Blood Count 5.5 10^3/uL (4.0-10.0)
[2023-04-21 09:15] LABS: Alanine Aminotransferase 32 U/L (0-41); Albumin Level 4.5 g/dL (3.5-5.2); Alkaline Phosphatase 48 U/L (40-130); Anion Gap 14.3 (5-19); Aspartate Amino Transferase 41 U/L (0-40); Blood Urea Nitrogen 28 mg/dL (6-20); Calcium 9.5 mg/dL (8.5-10.5); Carbon Dioxide 27 mmol/L (22-29); Chloride 98 mmol/L (98-107); Glucose 89 mg/dL (65-115); Osmolality Calculated 287 mOsm/kg (285-295); Potassium 3.3 mmol/L (3.5-5.1); Sodium 136 mmol/L (136-145); Total Bilirubin 0.4 mg/dL (0.15-1.2); Total Protein 6.5 g/dL (6.6-8.7)
[2023-04-21 09:16] LABS: Ammonia 24 umol/L (16-60)
[2023-04-21 11:52] LABS: Creatine Phosphokinase 605 U/L (39-308)
== END 2023-04-25 23:59 | disposition home or self-care (01) ==
LOC: LAB 08:35
PROVIDERS: PCP Family Medicine; Visit Provider Family Medicine
DX: E74.04 McArdle disease (principal); I10 Essential (primary) hypertension; M62.82 Rhabdomyolysis
CPT/HCPCS: 36415; 80053; 82140; 82550; 85025

== ENCOUNTER → 2023-04-22 08:38 | Day surgery (SDC) | payer MEDICARE, MEDICAID, SELFPAY ==
[2023-04-22] MEDS: sodium chloride 0.9% 1,000 ML 999 ML IV (08:28)
[2023-04-22 08:30] VITALS: BP 117/75; PULSE 64; RESP 18; TEMP 36.1; O2SAT 96
== END ==
LOC: GILAB 08:40
PROVIDERS: PCP Family Medicine; Visit Provider Family Medicine
DX: M62.82 Rhabdomyolysis (principal); E74.04 McArdle disease; Z79.899 Other long term (current) drug therapy
CPT/HCPCS: 96360; J7030

== ENCOUNTER → 2023-05-01 11:54 | Outpatient (BNVA) | payer MEDICARE, MEDICAID, SELFPAY | PROVIDERS: PCP Family Medicine; Visit Provider Internal Medicine Cardiovascular Disease | DX: N18.30 Chronic kidney disease, stage 3 unspecified; I50.33 Acute on chronic diastolic (congestive) heart failure; G47.33 Obstructive sleep apnea (adult) (pediatric); I25.10 Atherosclerotic heart disease of native coronary artery without angina pectoris; F17.210 Nicotine dependence, cigarettes, uncomplicated; I13.10 Hypertensive heart and chronic kidney disease without heart failure, with stage 1 through stage 4 chronic kidney disease, or unspecified chronic kidney disease | CPT/HCPCS: 99213 ==

== ENCOUNTER → 2023-05-02 07:48 | Day surgery (SDC) | payer MEDICARE, MEDICAID, SELFPAY ==
[2023-05-02] MEDS: sodium chloride 0.9% 1,000 ML 999 ML IV (08:00)
[2023-05-02 08:12] VITALS: BP 113/87; PULSE 75; RESP 18; TEMP 36.4; O2SAT 98
== END ==
LOC: GILAB 07:49
PROVIDERS: PCP Family Medicine; Visit Provider Family Medicine
DX: M62.82 Rhabdomyolysis (principal); E74.04 McArdle disease
CPT/HCPCS: 96360; J7030

== ENCOUNTER → 2023-05-06 12:29 | Day surgery (SDC) | payer MEDICARE, MEDICAID, SELFPAY ==
[2023-05-06] MEDS: sodium chloride 0.9% 1,000 ML 999 ML IV (12:46)
[2023-05-06 12:50] VITALS: BP 109/68; PULSE 61; RESP 18; TEMP 35.9; O2SAT 98
== END ==
LOC: GILAB 12:31
PROVIDERS: PCP Family Medicine; Visit Provider Family Medicine
DX: M62.82 Rhabdomyolysis (principal); Z79.899 Other long term (current) drug therapy
CPT/HCPCS: 96360; J7030

== ENCOUNTER 2023-05-19 08:40 | Outpatient (RCR) | payer MEDICARE, MEDICAID, SELFPAY ==
[2023-04-30 08:07] LABS: Basophils % 0.6 %; Eosinophils # 0.1 10^3/uL (0.0-0.8); Eosinophils % 2.5 %; Hematocrit 41.9 % (42.0-52.0); Hemoglobin 13.5 g/dL (11.7-16.6); Lymphocytes # 1.1 10^3/uL (0.8-4.8); Lymphocytes % 21.1 %; Mean Corpuscular HGB Conc 32.2 g/dL (30.0-36.0); Mean Corpuscular Hemoglobin 26.3 pg (28.0-34.0); Mean Corpuscular Volume 81.7 fl (80-94); Mean Platelet Volume 9.7 fL (7.4-10.4); Monocytes # 0.5 10^3/uL (0.2-0.9); Monocytes % 9.4 %; Neutrophils # 3.46 10^3/uL (1.8-7.7); Neutrophils % 66.2 %; Nucleated Red Blood Cells % 0 %; Platelet Count 166 10^3/cmm (130-400); Red Blood Count 5.13 10^6/uL (4.1-5.3); Red Cell Distribution Width 15.3 % (12.1-15.1); White Blood Count 5.2 10^3/uL (4.0-10.0)
[2023-04-30 08:27] LABS: Alanine Aminotransferase 41 U/L (0-41); Albumin Level 4.3 g/dL (3.5-5.2); Alkaline Phosphatase 49 U/L (40-130); Anion Gap 14.4 (5-19); Aspartate Amino Transferase 35 U/L (0-40); Blood Urea Nitrogen 21 mg/dL (6-20); Carbon Dioxide 26 mmol/L (22-29); Chloride 102 mmol/L (98-107); Chol HDL Ratio 2.98 mg/dL (1.0-5.00); Cholesterol 125 mg/dL (0-200); Globulin 2.1 g/dL (1.3-4.6); Glomerular Filtration Rate 28.9 mL/min (90-130); Glucose 104 mg/dL (65-115); HDL Cholesterol 42 mg/dL (60-100); LDL Cholesterol Calculated 61 mg/dL (50-129); LDL HDL Ratio 1.45 RATIO (0.00-3.22); Osmolality Calculated 291 mOsm/kg (285-295); Potassium 3.4 mmol/L (3.5-5.1); Sodium 139 mmol/L (136-145); Total Bilirubin 0.2 mg/dL (0.15-1.2); Total Protein 6.4 g/dL (6.6-8.7); Triglycerides 109 mg/dL (0-150)
[2023-04-30 08:28] LABS: Ammonia 22 umol/L (16-60)
[2023-04-30 09:30] LABS: Creatine Phosphokinase 551 U/L (39-308)
[2023-05-05 07:36] LABS: Basophils # 0.1 10^3/uL (0.0-0.1); Basophils % 0.8 %; Eosinophils # 0.2 10^3/uL (0.0-0.8); Eosinophils % 2.6 %; Hematocrit 43.7 % (42.0-52.0); Hemoglobin 13.7 g/dL (11.7-16.6); Lymphocytes # 1.2 10^3/uL (0.8-4.8); Mean Corpuscular HGB Conc 31.4 g/dL (30.0-36.0); Mean Corpuscular Hemoglobin 25.3 pg (28.0-34.0); Mean Corpuscular Volume 80.8 fl (80-94); Mean Platelet Volume 10.3 fL (7.4-10.4); Monocytes # 0.6 10^3/uL (0.2-0.9); Monocytes % 9.4 %; Neutrophils % 66.9 %; Nucleated Red Blood Cells % 0 %; Platelet Count 193 10^3/cmm (130-400); Red Blood Count 5.41 10^6/uL (4.1-5.3); Red Cell Distribution Width 15.1 % (12.1-15.1); White Blood Count 6.1 10^3/uL (4.0-10.0)
[2023-05-05 07:55] LABS: Alanine Aminotransferase 37 U/L (0-41); Albumin Level 4.6 g/dL (3.5-5.2); Alkaline Phosphatase 61 U/L (40-130); Anion Gap 13.5 (5-19); Aspartate Amino Transferase 39 U/L (0-40); Blood Urea Nitrogen 33 mg/dL (6-20); Calcium 8.9 mg/dL (8.5-10.5); Carbon Dioxide 26 mmol/L (22-29); Chloride 97 mmol/L (98-107); Glomerular Filtration Rate 26.4 mL/min (90-130); Glucose 98 mg/dL (65-115); Osmolality Calculated 283 mOsm/kg (285-295); Potassium 3.5 mmol/L (3.5-5.1); Sodium 133 mmol/L (136-145); Total Bilirubin 0.3 mg/dL (0.15-1.2); Total Protein 6.6 g/dL (6.6-8.7)
[2023-05-05 07:56] LABS: Ammonia 29 umol/L (16-60)
[2023-05-05 09:24] LABS: Creatine Phosphokinase 937 U/L (39-308)
[2023-05-12 07:24] LABS: Basophils % 0.7 %; Eosinophils # 0.2 10^3/uL (0.0-0.8); Eosinophils % 2.8 %; Hematocrit 44.7 % (42.0-52.0); Lymphocytes # 1.4 10^3/uL (0.8-4.8); Lymphocytes % 23.9 %; Mean Corpuscular HGB Conc 31.3 g/dL (30.0-36.0); Mean Corpuscular Hemoglobin 25.3 pg (28.0-34.0); Mean Corpuscular Volume 80.7 fl (80-94); Mean Platelet Volume 10.2 fL (7.4-10.4); Monocytes # 0.5 10^3/uL (0.2-0.9); Neutrophils # 3.58 10^3/uL (1.8-7.7); Neutrophils % 63.4 %; Nucleated Red Blood Cells % 0 %; Platelet Count 221 10^3/cmm (130-400); Red Blood Count 5.54 10^6/uL (4.1-5.3); Red Cell Distribution Width 15.7 % (12.1-15.1); White Blood Count 5.7 10^3/uL (4.0-10.0)
[2023-05-12 07:45] LABS: Alanine Aminotransferase 29 U/L (0-41); Albumin Level 4.4 g/dL (3.5-5.2); Alkaline Phosphatase 50 U/L (40-130); Ammonia 26 umol/L (16-60); Aspartate Amino Transferase 32 U/L (0-40); Blood Urea Nitrogen 28 mg/dL (6-20); Calcium 9.3 mg/dL (8.5-10.5); Carbon Dioxide 25 mmol/L (22-29); Chloride 100 mmol/L (98-107); Globulin 2.1 g/dL (1.3-4.6); Glomerular Filtration Rate 28.9 mL/min (90-130); Glucose 103 mg/dL (65-115); Osmolality Calculated 290 mOsm/kg (285-295); Sodium 137 mmol/L (136-145); Total Bilirubin 0.3 mg/dL (0.15-1.2); Total Protein 6.5 g/dL (6.6-8.7)
[2023-05-12 10:22] LABS: Creatine Phosphokinase 477 U/L (39-308)
[2023-05-12 10:23] LABS: Anion Gap 15.4 (5-19); Potassium 3.4 mmol/L (3.5-5.1)
[2023-05-19 09:00] LABS: Basophils % 0.7 %; Eosinophils # 0.1 10^3/uL (0.0-0.8); Eosinophils % 2.1 %; Hematocrit 42.7 % (42.0-52.0); Hemoglobin 13.6 g/dL (11.7-16.6); Lymphocytes # 1.2 10^3/uL (0.8-4.8); Lymphocytes % 19.6 %; Mean Corpuscular HGB Conc 31.9 g/dL (30.0-36.0); Mean Corpuscular Hemoglobin 25.8 pg (28.0-34.0); Mean Platelet Volume 9.6 fL (7.4-10.4); Monocytes # 0.6 10^3/uL (0.2-0.9); Monocytes % 9.8 %; Neutrophils # 4.12 10^3/uL (1.8-7.7); Neutrophils % 67.5 %; Nucleated Red Blood Cells % 0 %; Platelet Count 218 10^3/cmm (130-400); Red Blood Count 5.27 10^6/uL (4.1-5.3); Red Cell Distribution Width 15.9 % (12.1-15.1); White Blood Count 6.1 10^3/uL (4.0-10.0)
[2023-05-19 09:18] LABS: Alanine Aminotransferase 24 U/L (0-41); Albumin Level 4.4 g/dL (3.5-5.2); Alkaline Phosphatase 47 U/L (40-130); Anion Gap 14.5 (5-19); Aspartate Amino Transferase 26 U/L (0-40); Blood Urea Nitrogen 22 mg/dL (6-20); Carbon Dioxide 25 mmol/L (22-29); Chloride 101 mmol/L (98-107); Creatine Phosphokinase 300 U/L (39-308); Globulin 1.6 g/dL (1.3-4.6); Glucose 98 mg/dL (65-115); Osmolality Calculated 287 mOsm/kg (285-295); Potassium 3.5 mmol/L (3.5-5.1); Sodium 137 mmol/L (136-145); Total Bilirubin 0.4 mg/dL (0.15-1.2)
[2023-05-19 09:19] LABS: Ammonia 25 umol/L (16-60)
== END 2023-05-26 23:59 | disposition home or self-care (01) ==
LOC: LAB 08:40
PROVIDERS: PCP Family Medicine; Visit Provider Family Medicine
DX: E74.04 McArdle disease (principal); I10 Essential (primary) hypertension; K62.82 Dysplasia of anus
CPT/HCPCS: 36415; 80053; 80061; 82140; 82550; 85025

== ENCOUNTER 2023-05-28 08:08 | Outpatient (CLI) | payer MEDICARE, MEDICAID, SELFPAY ==
[2023-05-28 08:31] LABS: Basophils # 0.1 10^3/uL (0.0-0.1); Basophils % 0.8 %; Eosinophils # 0.1 10^3/uL (0.0-0.8); Eosinophils % 2.2 %; Hematocrit 44.9 % (42.0-52.0); Hemoglobin 14.4 g/dL (11.7-16.6); Lymphocytes # 1.7 10^3/uL (0.8-4.8); Lymphocytes % 26.4 %; Mean Corpuscular HGB Conc 32.1 g/dL (30.0-36.0); Mean Corpuscular Hemoglobin 25.9 pg (28.0-34.0); Mean Corpuscular Volume 80.8 fl (80-94); Mean Platelet Volume 9.6 fL (7.4-10.4); Monocytes # 0.6 10^3/uL (0.2-0.9); Monocytes % 9.2 %; Neutrophils # 3.84 10^3/uL (1.8-7.7); Neutrophils % 61.1 %; Nucleated Red Blood Cells % 0 %; Platelet Count 182 10^3/cmm (130-400); Red Blood Count 5.56 10^6/uL (4.1-5.3); Red Cell Distribution Width 15.8 % (12.1-15.1); White Blood Count 6.3 10^3/uL (4.0-10.0)
[2023-05-28 08:46] LABS: Ammonia 23 umol/L (16-60)
[2023-05-28 08:49] LABS: Albumin Level 4.5 g/dL (3.5-5.2); Alkaline Phosphatase 53 U/L (40-130); Chloride 106 mmol/L (98-107); Potassium 3.9 mmol/L (3.5-5.1); Sodium 139 mmol/L (136-145)
[2023-05-28 09:13] LABS: Alanine Aminotransferase 27 U/L (0-41); Anion Gap 14.9 (5-19); Aspartate Amino Transferase 28 U/L (0-40); Blood Urea Nitrogen 20 mg/dL (6-20); Calcium 9.2 mg/dL (8.5-10.5); Carbon Dioxide 22 mmol/L (22-29); Globulin 1.7 g/dL (1.3-4.6); Glomerular Filtration Rate 33.6 mL/min (90-130); Glucose 98 mg/dL (65-115); Osmolality Calculated 291 mOsm/kg (285-295); Total Bilirubin 0.3 mg/dL (0.15-1.2); Total Protein 6.2 g/dL (6.6-8.7)
[2023-05-28 16:08] LABS: Creatine Phosphokinase 364 U/L (39-308)
== END 2023-05-28 08:09 | disposition home or self-care (01) ==
LOC: LAB 08:18
PROVIDERS: PCP Family Medicine; Visit Provider Family Medicine
DX: E74.04 McArdle disease (principal); I10 Essential (primary) hypertension; M62.82 Rhabdomyolysis
CPT/HCPCS: 36415; 80053; 82140; 82550; 85025

== ENCOUNTER 2023-05-29 06:40 | Outpatient (CLI) | payer MEDICARE, MEDICAID, SELFPAY ==
[2023-05-29 07:02] VITALS: BMI 26.5
--- NOTE | 2023-05-29 07:03 | NMCV_ITS ---
NM fabiana perf SPECT r/s* [id number] Julian Cristobal Age: 48 Gender: M : 1975 Exam Date: 05/29/2023 07:32 Ordering Phys: Krish Galaviz MD ([email or web address]) Technologist: DOROTEO Quinones Exam Location: [facility] Indications: Chest Pain STRESS TEST [facility] IMAGE PROTOCOL Rest/Stress 1 Lexiscan Day Radiopharmaceutical Dose (mCi) Administration Site Administered by Rest: Tc-99m 10.8 IV DOROTEO Elizondo Sestamibi Stress:Tc-99m 32.5 IV DOROTEO Elizondo Sestamibi Rest: 29-May-2023 60 Discovery 630 Stress: 29-May-2023 30 Discovery 630 0.4mg Lexiscan. Images obtained in supine and prone position. SPECT RESULTS Technical Quality: Excellent Raw Data Analysis: Normal Image Corrections: No attenuation or motion correction applied Summed Stress Score: 6 Summed Rest Score: 6 Summed Difference Score: 2 PERFUSION FINDINGS Small sized perfusion abnormality of moderate severity mid to apical inferior wall and mid inferolateral and apical septal kulkarni on rest images with reversibility noted in basal inferior wall on supine stress images. Prone stress images show improved tracer uptake in inferior wall with reversibility in apical lateral wall. FUNCTIONAL RESULTS (calculated via Gated SPECT) Stress Image LV EF (%): 60 Stress EDV (mL):128 TID: 1.13 Stress ESV (mL):51 FUNCTIONAL FINDINGS: The left ventricle is normal in size. Transient Ischemia Dilatation of 1.1. The left ventricular ejection fraction is normal with a value of 60%. There is normal left ventricular wall thickening. Normal End-diastolic end-systolic volumes. IMPRESSIONS 1. Medium sized perfusion abnormality of moderate severity mid to apical inferior wall and mid inferolateral and apical septal kulkarni with some reversibility noted in basal inferior wall. 2. This may represent old myocardial infarction with minimal austin-infarct ischemia in right coronary artery territory. However with improved tracer uptake in the known imaging attenuation artifact cannot be ruled out. 3. Overall left ventricular systolic function is normal without regional wall motion abnormalities, LVEF=60%. 4. EKG portion of the study will be reported separately. Mavis Salamanca MD (Electronically Signed) Final Date: 04 June 2023 16:49 S
--- NOTE | 2023-05-29 07:03 | ECG_ITS ---
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 Interpretive Statements NAME OF STUDY: LEXISCAN SESTAMIBI STRESS TEST INDICATION: Chest Pain, SOB PROCEDURE: At the baseline, the blood pressure was 139/81 mmHg with a heart rate of 59 bpm. The electrocardiogram showed sinus rhythm, normal axis with nonspecific T wave changes. The Lexiscan was infused over a period of 20 seconds. A total of 0.4 milligrams of Lexiscan was infused. The stress phase was continued for a total of 5 minutes. Heart rate at the end of the stress phase was 76 bpm with a blood pressure 134/81 mmHg. The EKG at the peak infusion revealed sinus rhythm with no significant ST-T wave changes. Sestamibi was injected 20 seconds after the Lexiscan infusion. Blood pressure at the end of the recovery phase was 130/86 mmHg with a heart rate of 74 beats per minute. CONCLUSION: 1. No significant EKG changes with the LexiScan infusion. 2. No LexiScan induced chest pain or cardiac arrhythmia. 3. Normal blood pressure and heart rate response. 4. Sestamibi/sestamibi perfusion scan pending; see separate report. Electronically Signed On 06-04-2023 17:19:42 CDT by Mavis Salamanca M.D. [email or web address]/store/[id number]
[2023-05-29] MEDS: regadenoson 0.4 Mg/5 ml Syringe IVP (08:21)
[2023-05-29 08:32] VITALS: BP 130/86; PULSE 72
== END 2023-05-29 06:41 | disposition home or self-care (01) ==
LOC: CDL 06:41
PROVIDERS: PCP Family Medicine; Visit Provider Internal Medicine Cardiovascular Disease
DX: I25.10 Atherosclerotic heart disease of native coronary artery without angina pectoris (principal)
CPT/HCPCS: 36415; 78452; 93017; 96374; A9500; J2785

== ENCOUNTER 2023-06-10 08:31 | Outpatient (RCR) | payer MEDICARE, MEDICAID, SELFPAY ==
[2023-06-10 09:14] LABS: Basophils % 0.7 %; Eosinophils # 0.2 10^3/uL (0.0-0.8); Eosinophils % 3.1 %; Hematocrit 42.4 % (42.0-52.0); Hemoglobin 13.4 g/dL (11.7-16.6); Lymphocytes # 1.1 10^3/uL (0.8-4.8); Lymphocytes % 19.4 %; Mean Corpuscular HGB Conc 31.6 g/dL (30.0-36.0); Mean Corpuscular Hemoglobin 25.8 pg (28.0-34.0); Mean Corpuscular Volume 81.7 fl (80-94); Mean Platelet Volume 9.9 fL (7.4-10.4); Monocytes # 0.5 10^3/uL (0.2-0.9); Monocytes % 9.6 %; Neutrophils # 3.69 10^3/uL (1.8-7.7); Neutrophils % 66.8 %; Nucleated Red Blood Cells % 0 %; Platelet Count 207 10^3/cmm (130-400); Red Blood Count 5.19 10^6/uL (4.1-5.3); Red Cell Distribution Width 16.1 % (12.1-15.1); White Blood Count 5.5 10^3/uL (4.0-10.0)
[2023-06-10 09:25] LABS: Ammonia 20 umol/L (16-60)
[2023-06-10 09:39] LABS: Alanine Aminotransferase 30 U/L (0-41); Albumin Level 4.2 g/dL (3.5-5.2); Alkaline Phosphatase 43 U/L (40-130); Anion Gap 11.4 (5-19); Aspartate Amino Transferase 36 U/L (0-40); Blood Urea Nitrogen 21 mg/dL (6-20); Calcium 9.1 mg/dL (8.5-10.5); Carbon Dioxide 29 mmol/L (22-29); Chloride 102 mmol/L (98-107); Globulin 1.9 g/dL (1.3-4.6); Glomerular Filtration Rate 28.8 mL/min (90-130); Glucose 94 mg/dL (65-115); Osmolality Calculated 291 mOsm/kg (285-295); Potassium 3.4 mmol/L (3.5-5.1); Sodium 139 mmol/L (136-145); Total Bilirubin 0.4 mg/dL (0.15-1.2); Total Protein 6.1 g/dL (6.6-8.7)
[2023-06-10 11:46] LABS: Creatine Phosphokinase 439 U/L (39-308)
== END 2023-06-26 23:59 | disposition home or self-care (01) ==
LOC: LAB 08:31
PROVIDERS: PCP Family Medicine; Visit Provider Family Medicine
DX: M62.82 Rhabdomyolysis (principal)
CPT/HCPCS: 36415; 80053; 82140; 82550; 85025

== ENCOUNTER → 2023-06-13 08:00 | Day surgery (SDC) | payer MEDICARE, MEDICAID, SELFPAY ==
[2023-06-13] MEDS: sodium chloride 0.9% 1,000 ML 999 ML IV (08:26)
[2023-06-13 08:32] VITALS: BP 124/72; PULSE 58; RESP 18; TEMP 36.1; O2SAT 96
== END ==
LOC: GILAB 08:01
PROVIDERS: PCP Family Medicine; Visit Provider Family Medicine
DX: M62.82 Rhabdomyolysis (principal); E74.04 McArdle disease; Z79.899 Other long term (current) drug therapy
CPT/HCPCS: 96360; J7030

== ENCOUNTER 2023-06-16 07:24 | Outpatient (CLI) | payer MEDICARE, MEDICAID, SELFPAY ==
[2023-06-16 07:44] LABS: Basophils % 0.7 %; Eosinophils # 0.2 10^3/uL (0.0-0.8); Eosinophils % 3.6 %; Hemoglobin 13.4 g/dL (11.7-16.6); Lymphocytes # 1.3 10^3/uL (0.8-4.8); Lymphocytes % 22.2 %; Mean Corpuscular HGB Conc 30.5 g/dL (30.0-36.0); Mean Corpuscular Hemoglobin 24.5 pg (28.0-34.0); Mean Corpuscular Volume 80.6 fl (80-94); Mean Platelet Volume 9.6 fL (7.4-10.4); Monocytes # 0.5 10^3/uL (0.2-0.9); Monocytes % 8.8 %; Neutrophils # 3.72 10^3/uL (1.8-7.7); Neutrophils % 64.5 %; Nucleated Red Blood Cells % 0 %; Platelet Count 209 10^3/cmm (130-400); Red Blood Count 5.46 10^6/uL (4.1-5.3); Red Cell Distribution Width 15.8 % (12.1-15.1); White Blood Count 5.8 10^3/uL (4.0-10.0)
[2023-06-16 08:01] LABS: Alanine Aminotransferase 27 U/L (0-41); Albumin Level 4.4 g/dL (3.5-5.2); Alkaline Phosphatase 45 U/L (40-130); Anion Gap 11.9 (5-19); Aspartate Amino Transferase 25 U/L (0-40); Blood Urea Nitrogen 25 mg/dL (6-20); Calcium 8.9 mg/dL (8.5-10.5); Carbon Dioxide 29 mmol/L (22-29); Chloride 101 mmol/L (98-107); Creatine Phosphokinase 264 U/L (39-308); Globulin 1.8 g/dL (1.3-4.6); Glomerular Filtration Rate 27.5 mL/min (90-130); Glucose 98 mg/dL (65-115); Osmolality Calculated 290 mOsm/kg (285-295); Potassium 3.9 mmol/L (3.5-5.1); Sodium 138 mmol/L (136-145); Total Bilirubin 0.4 mg/dL (0.15-1.2); Total Protein 6.2 g/dL (6.6-8.7)
[2023-06-16 08:03] LABS: Ammonia 17 umol/L (16-60)
== END 2023-06-16 07:25 | disposition home or self-care (01) ==
PROVIDERS: PCP Family Medicine; Visit Provider Family Medicine
DX: E74.04 McArdle disease (principal); I10 Essential (primary) hypertension; M62.82 Rhabdomyolysis; Z79.899 Other long term (current) drug therapy
CPT/HCPCS: 36415; 80053; 82140; 82550; 85025; 96360; J7030

== ENCOUNTER → 2023-06-16 07:40 | Day surgery (SDC) | payer MEDICARE, MEDICAID, SELFPAY ==
[2023-06-16] MEDS: sodium chloride 0.9% 1,000 ML 999 ML IV (07:55)
[2023-06-16 08:01] VITALS: BP 103/65; PULSE 53; RESP 8; TEMP 36.2; O2SAT 97
== END ==
PROVIDERS: PCP Family Medicine; Visit Provider Family Medicine
DX: E74.04 McArdle disease (principal); M62.82 Rhabdomyolysis; Z79.899 Other long term (current) drug therapy
CPT/HCPCS: 96360; J7030

== ENCOUNTER 2023-06-23 07:16 | Outpatient (RCR) | payer MEDICARE, MEDICAID, SELFPAY ==
[2023-06-02 08:03] LABS: Basophils % 0.7 %; Eosinophils # 0.1 10^3/uL (0.0-0.8); Eosinophils % 2.3 %; Hematocrit 45.1 % (42.0-52.0); Hemoglobin 13.8 g/dL (11.7-16.6); Lymphocytes # 1.3 10^3/uL (0.8-4.8); Lymphocytes % 21.8 %; Mean Corpuscular HGB Conc 30.6 g/dL (30.0-36.0); Mean Corpuscular Hemoglobin 24.9 pg (28.0-34.0); Mean Corpuscular Volume 81.4 fl (80-94); Mean Platelet Volume 9.9 fL (7.4-10.4); Monocytes # 0.5 10^3/uL (0.2-0.9); Monocytes % 7.7 %; Neutrophils # 4.11 10^3/uL (1.8-7.7); Neutrophils % 67.3 %; Nucleated Red Blood Cells % 0 %; Platelet Count 181 10^3/cmm (130-400); Red Blood Count 5.54 10^6/uL (4.1-5.3); Red Cell Distribution Width 15.9 % (12.1-15.1); White Blood Count 6.1 10^3/uL (4.0-10.0)
[2023-06-02 08:30] LABS: Ammonia 21 umol/L (16-60)
[2023-06-02 08:43] LABS: Albumin Level 4.3 g/dL (3.5-5.2); Alkaline Phosphatase 43 U/L (40-130); Anion Gap 13.2 (5-19); Blood Urea Nitrogen 21 mg/dL (6-20); Calcium 9.5 mg/dL (8.5-10.5); Carbon Dioxide 29 mmol/L (22-29); Chloride 102 mmol/L (98-107); Creatine Phosphokinase 242 U/L (39-308); Glomerular Filtration Rate 28.8 mL/min (90-130); Glucose 90 mg/dL (65-115); Osmolality Calculated 293 mOsm/kg (285-295); Potassium 4.2 mmol/L (3.5-5.1); Sodium 140 mmol/L (136-145); Total Bilirubin 0.3 mg/dL (0.15-1.2); Total Protein 6.3 g/dL (6.6-8.7)
[2023-06-02 09:16] LABS: Alanine Aminotransferase 24 U/L (0-41); Aspartate Amino Transferase 25 U/L (0-40)
[2023-06-23 07:42] LABS: Basophils % 0.6 %; Eosinophils # 0.2 10^3/uL (0.0-0.8); Eosinophils % 2.8 %; Hematocrit 46.1 % (37-53); Lymphocytes # 1.3 10^3/uL (0.8-4.8); Lymphocytes % 23.7 %; Mean Corpuscular HGB Conc 30.6 g/dL (30-55); Mean Corpuscular Volume 81.7 fl (82-101); Mean Platelet Volume 10.4 fL (7.4-10.4); Monocytes # 0.5 10^3/uL (0.2-0.9); Monocytes % 8.7 %; Neutrophils # 3.46 10^3/uL (1.8-7.7); Neutrophils % 63.8 %; Nucleated Red Blood Cells % 0 %; Platelet Count 215 10^3/cmm (157-399); Red Blood Count 5.64 10^6/uL (3.85-5.65); Red Cell Distribution Width 15.5 % (12.1-15.1); White Blood Count 5.41 10^3/uL (3.29-11.43)
[2023-06-23 08:06] LABS: Ammonia 20 umol/L (16-60)
[2023-06-23 08:07] LABS: Alanine Aminotransferase 27 U/L (0-41); Albumin Level 4.6 g/dL (3.5-5.2); Alkaline Phosphatase 56 U/L (40-130); Anion Gap 13.3 (5-19); Aspartate Amino Transferase 23 U/L (0-40); Blood Urea Nitrogen 28 mg/dL (6-20); Calcium 9.4 mg/dL (8.5-10.5); Carbon Dioxide 27 mmol/L (22-29); Chloride 104 mmol/L (98-107); Creatine Phosphokinase 198 U/L (39-308); Globulin 2.1 g/dL (1.3-4.6); Glomerular Filtration Rate 33.6 mL/min (90-130); Glucose 101 mg/dL (65-115); Osmolality Calculated 296 mOsm/kg (285-295); Potassium 4.3 mmol/L (3.5-5.1); Sodium 140 mmol/L (136-145); Total Bilirubin 0.3 mg/dL (0.15-1.2); Total Protein 6.7 g/dL (6.6-8.7)
== END 2023-06-26 23:59 | disposition home or self-care (01) ==
LOC: LAB 07:16
PROVIDERS: PCP Family Medicine; Visit Provider Family Medicine
DX: M62.82 Rhabdomyolysis (principal)
CPT/HCPCS: 36415; 80053; 82140; 82550; 85025

== ENCOUNTER 2023-07-07 07:43 | Outpatient (CLI) | payer MEDICARE, MEDICAID, SELFPAY ==
[2023-07-07 08:08] LABS: Basophils % 0.6 %; Eosinophils # 0.2 10^3/uL (0.0-0.8); Eosinophils % 3.6 %; Hematocrit 43.2 % (37-53); Lymphocytes # 1.3 10^3/uL (0.8-4.8); Lymphocytes % 24.6 %; Mean Corpuscular HGB Conc 30.8 g/dL (30-55); Mean Corpuscular Hemoglobin 24.7 pg (27-33); Mean Corpuscular Volume 80.1 fl (82-101); Mean Platelet Volume 9.7 fL (7.4-10.4); Monocytes # 0.5 10^3/uL (0.2-0.9); Monocytes % 9.8 %; Neutrophils # 3.23 10^3/uL (1.8-7.7); Nucleated Red Blood Cells % 0 %; Platelet Count 203 10^3/cmm (157-399); Red Blood Count 5.39 10^6/uL (3.85-5.65); Red Cell Distribution Width 16.6 % (12.1-15.1); White Blood Count 5.29 10^3/uL (3.29-11.43)
[2023-07-07 08:22] LABS: Ammonia 23 umol/L (16-60)
[2023-07-07 08:24] LABS: Alanine Aminotransferase 28 U/L (0-41); Albumin Level 4.5 g/dL (3.5-5.2); Alkaline Phosphatase 45 U/L (40-130); Anion Gap 13.6 (5-19); Aspartate Amino Transferase 32 U/L (0-40); Blood Urea Nitrogen 26 mg/dL (6-20); Calcium 9.2 mg/dL (8.5-10.5); Carbon Dioxide 28 mmol/L (22-29); Chloride 103 mmol/L (98-107); Creatine Phosphokinase 274 U/L (39-308); Glomerular Filtration Rate 31.8 mL/min (90-130); Glucose 105 mg/dL (65-115); Osmolality Calculated 297 mOsm/kg (285-295); Potassium 3.6 mmol/L (3.5-5.1); Sodium 141 mmol/L (136-145); Total Bilirubin 0.3 mg/dL (0.15-1.2); Total Protein 6.5 g/dL (6.6-8.7)
== END 2023-07-07 07:44 | disposition home or self-care (01) ==
PROVIDERS: PCP Family Medicine; Visit Provider Family Medicine
DX: E74.04 McArdle disease (principal); I10 Essential (primary) hypertension; M62.82 Rhabdomyolysis; Z79.899 Other long term (current) drug therapy
CPT/HCPCS: 36415; 80053; 82140; 82550; 85025

== ENCOUNTER 2023-07-15 11:53 | Outpatient (CLI) | payer MEDICARE, MEDICAID, SELFPAY ==
[2023-07-15 13:16] LABS: Basophils % 0.7 %; Eosinophils # 0.1 10^3/uL (0.0-0.8); Eosinophils % 1.9 %; Hematocrit 44.5 % (37-53); Lymphocytes # 1.5 10^3/uL (0.8-4.8); Mean Corpuscular HGB Conc 31.5 g/dL (30-55); Mean Corpuscular Hemoglobin 24.9 pg (27-33); Mean Corpuscular Volume 79.2 fl (82-101); Mean Platelet Volume 9.9 fL (7.4-10.4); Monocytes # 0.5 10^3/uL (0.2-0.9); Monocytes % 9.2 %; Neutrophils # 3.58 10^3/uL (1.8-7.7); Nucleated Red Blood Cells % 0 %; Platelet Count 193 10^3/cmm (157-399); Red Blood Count 5.62 10^6/uL (3.85-5.65); Red Cell Distribution Width 16.2 % (12.1-15.1); White Blood Count 5.77 10^3/uL (3.29-11.43)
[2023-07-15 13:42] LABS: Alanine Aminotransferase 34 U/L (0-41); Albumin Level 4.9 g/dL (3.5-5.2); Alkaline Phosphatase 51 U/L (40-130); Ammonia 24 umol/L (16-60); Anion Gap 16.3 (5-19); Aspartate Amino Transferase 31 U/L (0-40); Blood Urea Nitrogen 27 mg/dL (6-20); Calcium 9.8 mg/dL (8.5-10.5); Carbon Dioxide 26 mmol/L (22-29); Chloride 100 mmol/L (98-107); Globulin 1.9 g/dL (1.3-4.6); Glomerular Filtration Rate 27.5 mL/min (90-130); Glucose 112 mg/dL (65-115); Osmolality Calculated 294 mOsm/kg (285-295); Potassium 3.3 mmol/L (3.5-5.1); Sodium 139 mmol/L (136-145); Total Bilirubin 0.4 mg/dL (0.15-1.2); Total Protein 6.8 g/dL (6.6-8.7)
[2023-07-15 14:55] LABS: Creatine Phosphokinase 407 U/L (39-308)
== END 2023-07-15 11:54 | disposition home or self-care (01) ==
PROVIDERS: PCP Family Medicine; Visit Provider Family Medicine
DX: I10 Essential (primary) hypertension (principal); M62.82 Rhabdomyolysis; E74.04 McArdle disease
CPT/HCPCS: 36415; 80053; 82140; 82550; 85025

== ENCOUNTER 2023-07-21 07:18 | Outpatient (RCR) | payer MEDICARE, MEDICAID, SELFPAY ==
[2023-07-01 12:56] LABS: Basophils % 0.4 %; Eosinophils # 0.1 10^3/uL (0.0-0.8); Eosinophils % 1.6 %; Hematocrit 44.8 % (37-53); Lymphocytes # 1.6 10^3/uL (0.8-4.8); Lymphocytes % 23.8 %; Mean Corpuscular HGB Conc 30.8 g/dL (30-55); Mean Corpuscular Hemoglobin 24.9 pg (27-33); Mean Corpuscular Volume 80.7 fl (82-101); Mean Platelet Volume 10.6 fL (7.4-10.4); Monocytes # 0.6 10^3/uL (0.2-0.9); Monocytes % 9.5 %; Neutrophils # 4.36 10^3/uL (1.8-7.7); Neutrophils % 64.6 %; Nucleated Red Blood Cells % 0 %; Platelet Count 222 10^3/cmm (157-399); Red Blood Count 5.55 10^6/uL (3.85-5.65); Red Cell Distribution Width 16.8 % (12.1-15.1); White Blood Count 6.76 10^3/uL (3.29-11.43)
[2023-07-01 13:14] LABS: Ammonia 22 umol/L (16-60)
[2023-07-01 13:19] LABS: Alanine Aminotransferase 24 U/L (0-41); Albumin Level 4.7 g/dL (3.5-5.2); Alkaline Phosphatase 54 U/L (40-130); Aspartate Amino Transferase 24 U/L (0-40); Blood Urea Nitrogen 23 mg/dL (6-20); Calcium 9.2 mg/dL (8.5-10.5); Carbon Dioxide 31 mmol/L (22-29); Chloride 103 mmol/L (98-107); Creatine Phosphokinase 287 U/L (39-308); Globulin 1.9 g/dL (1.3-4.6); Glomerular Filtration Rate 31.8 mL/min (90-130); Glucose 79 mg/dL (65-115); Osmolality Calculated 297 mOsm/kg (285-295); Sodium 142 mmol/L (136-145); Total Bilirubin 0.3 mg/dL (0.15-1.2); Total Protein 6.6 g/dL (6.6-8.7)
[2023-07-21 07:34] LABS: Basophils # 0.1 10^3/uL (0.0-0.1); Basophils % 1.1 %; Eosinophils # 0.2 10^3/uL (0.0-0.8); Eosinophils % 4.5 %; Hematocrit 41.8 % (37-53); Lymphocytes # 1.2 10^3/uL (0.8-4.8); Lymphocytes % 25.5 %; Mean Corpuscular HGB Conc 31.3 g/dL (30-55); Mean Corpuscular Hemoglobin 24.9 pg (27-33); Mean Corpuscular Volume 79.3 fl (82-101); Mean Platelet Volume 9.7 fL (7.4-10.4); Monocytes # 0.4 10^3/uL (0.2-0.9); Monocytes % 9.4 %; Neutrophils # 2.79 10^3/uL (1.8-7.7); Neutrophils % 59.3 %; Nucleated Red Blood Cells % 0 %; Platelet Count 169 10^3/cmm (157-399); Red Blood Count 5.27 10^6/uL (3.85-5.65); Red Cell Distribution Width 16.1 % (12.1-15.1)
[2023-07-21 07:54] LABS: Ammonia 31 umol/L (16-60)
[2023-07-21 07:55] LABS: Alanine Aminotransferase 30 U/L (0-41); Albumin Level 4.6 g/dL (3.5-5.2); Alkaline Phosphatase 53 U/L (40-130); Anion Gap 11.7 (5-19); Aspartate Amino Transferase 37 U/L (0-40); Blood Urea Nitrogen 29 mg/dL (6-20); Calcium 9.1 mg/dL (8.5-10.5); Carbon Dioxide 27 mmol/L (22-29); Chloride 104 mmol/L (98-107); Globulin 1.7 g/dL (1.3-4.6); Glomerular Filtration Rate 28.8 mL/min (90-130); Glucose 97 mg/dL (65-115); Osmolality Calculated 294 mOsm/kg (285-295); Potassium 3.7 mmol/L (3.5-5.1); Sodium 139 mmol/L (136-145); Total Bilirubin 0.3 mg/dL (0.15-1.2); Total Protein 6.3 g/dL (6.6-8.7)
[2023-07-21 10:47] LABS: Creatine Phosphokinase 755 U/L (39-308)
== END 2023-07-26 23:59 | disposition home or self-care (01) ==
LOC: LAB 07:18
PROVIDERS: PCP Family Medicine; Visit Provider Family Medicine
DX: E74.04 McArdle disease (principal); I10 Essential (primary) hypertension; M62.82 Rhabdomyolysis
CPT/HCPCS: 36415; 80053; 82140; 82550; 85025

== ENCOUNTER → 2023-07-22 07:55 | Day surgery (SDC) | payer MEDICARE, MEDICAID, SELFPAY ==
[2023-07-22] MEDS: sodium chloride 0.9% 1,000 ML 999 ML IV (08:09)
[2023-07-22 08:13] VITALS: BP 131/79; PULSE 60; RESP 18; TEMP 36.1; O2SAT 96
== END ==
LOC: GILAB 07:55
PROVIDERS: PCP Family Medicine; Visit Provider Family Medicine
DX: E74.04 McArdle disease (principal)
CPT/HCPCS: 96360; J7030

== ENCOUNTER 2023-08-04 07:34 | Outpatient (RCR) | payer MEDICARE, MEDICAID, SELFPAY ==
[2023-07-28 07:52] LABS: Basophils % 0.6 %; Eosinophils # 0.2 10^3/uL (0.0-0.8); Eosinophils % 2.7 %; Lymphocytes # 0.8 10^3/uL (0.8-4.8); Lymphocytes % 11.7 %; Mean Corpuscular HGB Conc 31.3 g/dL (30-55); Mean Corpuscular Hemoglobin 25.2 pg (27-33); Mean Corpuscular Volume 80.5 fl (82-101); Mean Platelet Volume 9.9 fL (7.4-10.4); Monocytes # 0.6 10^3/uL (0.2-0.9); Monocytes % 8.4 %; Neutrophils # 5.11 10^3/uL (1.8-7.7); Neutrophils % 76.3 %; Nucleated Red Blood Cells % 0 %; Platelet Count 177 10^3/cmm (157-399); Red Blood Count 4.97 10^6/uL (3.85-5.65); Red Cell Distribution Width 16.9 % (12.1-15.1); White Blood Count 6.69 10^3/uL (3.29-11.43)
[2023-07-28 08:07] LABS: Ammonia 18 umol/L (16-60)
[2023-07-28 08:08] LABS: Alanine Aminotransferase 49 U/L (0-41); Albumin Level 4.1 g/dL (3.5-5.2); Alkaline Phosphatase 54 U/L (40-130); Anion Gap 13.6 (5-19); Aspartate Amino Transferase 51 U/L (0-40); Blood Urea Nitrogen 24 mg/dL (6-20); Carbon Dioxide 29 mmol/L (22-29); Chloride 101 mmol/L (98-107); Globulin 2.2 g/dL (1.3-4.6); Glomerular Filtration Rate 26.3 mL/min (90-130); Glucose 102 mg/dL (65-115); Osmolality Calculated 294 mOsm/kg (285-295); Potassium 3.6 mmol/L (3.5-5.1); Sodium 140 mmol/L (136-145); Total Bilirubin 0.4 mg/dL (0.15-1.2); Total Protein 6.3 g/dL (6.6-8.7)
[2023-07-28 14:24] LABS: Creatine Phosphokinase 828 U/L (39-308)
[2023-08-04 08:14] LABS: Basophils # 0.1 10^3/uL (0.0-0.1); Basophils % 0.9 %; Eosinophils # 0.2 10^3/uL (0.0-0.8); Eosinophils % 3.4 %; Hematocrit 42.2 % (37-53); Lymphocytes # 1.1 10^3/uL (0.8-4.8); Lymphocytes % 18.9 %; Mean Corpuscular HGB Conc 30.8 g/dL (30-55); Mean Corpuscular Hemoglobin 25.1 pg (27-33); Mean Corpuscular Volume 81.5 fl (82-101); Mean Platelet Volume 9.8 fL (7.4-10.4); Monocytes # 0.5 10^3/uL (0.2-0.9); Monocytes % 8.5 %; Neutrophils # 3.86 10^3/uL (1.8-7.7); Neutrophils % 67.9 %; Nucleated Red Blood Cells % 0 %; Platelet Count 225 10^3/cmm (157-399); Red Blood Count 5.18 10^6/uL (3.85-5.65); White Blood Count 5.67 10^3/uL (3.29-11.43)
[2023-08-04 08:35] LABS: Alanine Aminotransferase 31 U/L (0-41); Albumin Level 4.1 g/dL (3.5-5.2); Alkaline Phosphatase 49 U/L (40-130); Ammonia 35 umol/L (16-60); Anion Gap 10.6 (5-19); Aspartate Amino Transferase 23 U/L (0-40); Blood Urea Nitrogen 15 mg/dL (6-20); Calcium 8.7 mg/dL (8.5-10.5); Carbon Dioxide 26 mmol/L (22-29); Chloride 104 mmol/L (98-107); Creatine Phosphokinase 271 U/L (39-308); Globulin 1.9 g/dL (1.3-4.6); Glomerular Filtration Rate 30.2 mL/min (90-130); Glucose 96 mg/dL (65-115); Osmolality Calculated 285 mOsm/kg (285-295); Potassium 3.6 mmol/L (3.5-5.1); Sodium 137 mmol/L (136-145); Total Bilirubin 0.3 mg/dL (0.15-1.2)
== END 2023-08-26 23:59 | disposition home or self-care (01) ==
LOC: LAB 07:34
PROVIDERS: PCP Family Medicine; Visit Provider Family Medicine
DX: E74.04 McArdle disease (principal); I10 Essential (primary) hypertension; M62.82 Rhabdomyolysis
CPT/HCPCS: 36415; 80053; 82140; 82550; 85025

== ENCOUNTER 2023-08-05 07:44 | Outpatient (RCR) | payer MEDICARE, MEDICAID, SELFPAY ==
[2023-07-29 08:14] VITALS: BP 163/86; PULSE 66; RESP 18; TEMP 36.5; O2SAT 98
[2023-07-29] MEDS: sodium chloride 0.9% 1,000 ML 999 ML IV (08:14)
[2023-08-05] MEDS: sodium chloride 0.9% 1,000 ML 999 ML IV (08:20)
[2023-08-05 08:23] VITALS: BP 139/79; PULSE 68; RESP 18; TEMP 36.2; O2SAT 96
== END 2023-08-26 23:59 | disposition home or self-care (01) ==
LOC: GILAB 07:44
PROVIDERS: PCP Family Medicine; Visit Provider Family Medicine
DX: E74.04 McArdle disease (principal); M62.82 Rhabdomyolysis
CPT/HCPCS: 96360; J7030

== ENCOUNTER 2023-08-15 07:27 | Outpatient (CLI) | payer MEDICARE, MEDICAID, SELFPAY ==
[2023-08-15 07:55] LABS: Basophils % 0.8 %; Eosinophils # 0.2 10^3/uL (0.0-0.8); Eosinophils % 3.3 %; Hematocrit 41.4 % (37-53); Lymphocytes # 1.1 10^3/uL (0.8-4.8); Lymphocytes % 21.5 %; Mean Corpuscular HGB Conc 30.9 g/dL (30-55); Mean Corpuscular Hemoglobin 25.1 pg (27-33); Mean Corpuscular Volume 81.2 fl (82-101); Mean Platelet Volume 9.6 fL (7.4-10.4); Monocytes # 0.5 10^3/uL (0.2-0.9); Monocytes % 9.3 %; Neutrophils % 64.9 %; Nucleated Red Blood Cells % 0 %; Platelet Count 217 10^3/cmm (157-399); Red Cell Distribution Width 16.5 % (12.1-15.1); White Blood Count 5.08 10^3/uL (3.29-11.43)
[2023-08-15 08:16] LABS: Creatinine Urine, Random 381 mg/dL (39-259); Microalbum Creatinine Ratio Ur 3 mg/dL (0-20); Microalbumin Random Urine 1 ug/dL (0-20)
[2023-08-15 08:16] LABS: Albumin Level 4.2 g/dL (3.5-5.2); Anion Gap 13.1 (5-19); Blood Urea Nitrogen 21 mg/dL (6-20); Calcium 9.4 mg/dL (8.5-10.5); Calcium 9.5 mg/dL (8.5-10.5); Carbon Dioxide 25 mmol/L (22-29); Chloride 105 mmol/L (98-107); Glomerular Filtration Rate 31.8 mL/min (90-130); Glucose 99 mg/dL (65-115); Magnesium 2.3 mg/dL (1.7-2.3); Phosphorus 2.2 mg/dL (2.5-4.5); Potassium 4.1 mmol/L (3.5-5.1); Sodium 139 mmol/L (136-145)
[2023-08-15 08:21] LABS: Parathyroid Hormone 26.6 pg/mL (15-65)
[2023-08-15 08:31] LABS: 25 Hydroxy Vitamin D 68 ng/mL (30-100)
== END 2023-08-15 07:28 | disposition home or self-care (01) ==
PROVIDERS: PCP Family Medicine; Visit Provider Internal Medicine Nephrology
DX: N18.32 Chronic kidney disease, stage 3b (principal); Z79.899 Other long term (current) drug therapy
CPT/HCPCS: 36415; 80069; 82044; 82306; 82310; 83735; 83970; 85025

== ENCOUNTER 2023-08-18 08:25 | Outpatient (RCR) | payer MEDICARE, MEDICAID, SELFPAY ==
[2023-08-18 08:48] LABS: Basophils % 0.8 %; Eosinophils # 0.2 10^3/uL (0.0-0.8); Hematocrit 40.8 % (37-53); Lymphocytes # 1.2 10^3/uL (0.8-4.8); Lymphocytes % 23.6 %; Mean Corpuscular HGB Conc 31.1 g/dL (30-55); Mean Corpuscular Hemoglobin 24.5 pg (27-33); Mean Corpuscular Volume 78.6 fl (82-101); Mean Platelet Volume 9.6 fL (7.4-10.4); Monocytes # 0.4 10^3/uL (0.2-0.9); Monocytes % 7.9 %; Neutrophils # 3.28 10^3/uL (1.8-7.7); Neutrophils % 64.5 %; Nucleated Red Blood Cells % 0 %; Platelet Count 194 10^3/cmm (157-399); Red Blood Count 5.19 10^6/uL (3.85-5.65); Red Cell Distribution Width 16.1 % (12.1-15.1); White Blood Count 5.08 10^3/uL (3.29-11.43)
[2023-08-18 09:06] LABS: Alanine Aminotransferase 18 U/L (0-41); Albumin Level 4.6 g/dL (3.5-5.2); Alkaline Phosphatase 49 U/L (40-130); Anion Gap 13.8 (5-19); Aspartate Amino Transferase 20 U/L (0-40); Blood Urea Nitrogen 20 mg/dL (6-20); Calcium 9.3 mg/dL (8.5-10.5); Carbon Dioxide 23 mmol/L (22-29); Chloride 109 mmol/L (98-107); Creatine Phosphokinase 191 U/L (39-308); Globulin 1.8 g/dL (1.3-4.6); Glomerular Filtration Rate 33.6 mL/min (90-130); Glucose 103 mg/dL (65-115); Osmolality Calculated 297 mOsm/kg (285-295); Potassium 3.8 mmol/L (3.5-5.1); Sodium 142 mmol/L (136-145); Total Bilirubin 0.4 mg/dL (0.15-1.2); Total Protein 6.4 g/dL (6.6-8.7)
[2023-08-18 09:07] LABS: Ammonia 32 umol/L (16-60)
== END 2023-08-26 23:59 | disposition home or self-care (01) ==
LOC: LAB 08:25
PROVIDERS: PCP Family Medicine; Visit Provider Family Medicine
DX: E74.04 McArdle disease (principal); I10 Essential (primary) hypertension; M62.82 Rhabdomyolysis; Z79.899 Other long term (current) drug therapy
CPT/HCPCS: 36415; 80053; 82140; 82550; 85025

== ENCOUNTER 2023-09-15 07:34 | Outpatient (RCR) | payer MEDICARE, MEDICAID, SELFPAY ==
[2023-09-01 08:02] LABS: Basophils % 0.8 %; Eosinophils # 0.2 10^3/uL (0.0-0.8); Eosinophils % 2.9 %; Lymphocytes # 1.1 10^3/uL (0.8-4.8); Lymphocytes % 21.2 %; Mean Corpuscular Hemoglobin 24.3 pg (27-33); Mean Corpuscular Volume 81.1 fl (82-101); Mean Platelet Volume 10.5 fL (7.4-10.4); Monocytes # 0.5 10^3/uL (0.2-0.9); Monocytes % 8.7 %; Neutrophils # 3.41 10^3/uL (1.8-7.7); Neutrophils % 66.2 %; Nucleated Red Blood Cells % 0 %; Platelet Count 191 10^3/cmm (157-399); White Blood Count 5.15 10^3/uL (3.29-11.43)
[2023-09-01 08:18] LABS: Alanine Aminotransferase 21 U/L (0-41); Albumin Level 4.4 g/dL (3.5-5.2); Alkaline Phosphatase 45 U/L (40-130); Ammonia 47 umol/L (16-60); Anion Gap 14.1 (5-19); Aspartate Amino Transferase 20 U/L (0-40); Blood Urea Nitrogen 16 mg/dL (6-20); Calcium 9.1 mg/dL (8.5-10.5); Carbon Dioxide 23 mmol/L (22-29); Chloride 107 mmol/L (98-107); Creatine Phosphokinase 229 U/L (39-308); Globulin 1.9 g/dL (1.3-4.6); Glomerular Filtration Rate 31.8 mL/min (90-130); Glucose 94 mg/dL (65-115); Osmolality Calculated 291 mOsm/kg (285-295); Potassium 4.1 mmol/L (3.5-5.1); Sodium 140 mmol/L (136-145); Total Bilirubin 0.5 mg/dL (0.15-1.2); Total Protein 6.3 g/dL (6.6-8.7)
[2023-09-08 08:00] LABS: Eosinophils # 0.2 10^3/uL (0.0-0.8); Eosinophils % 4.2 %; Hematocrit 39.7 % (37-53); Lymphocytes % 24.7 %; Mean Corpuscular HGB Conc 30.7 g/dL (30-55); Mean Corpuscular Hemoglobin 24.8 pg (27-33); Mean Corpuscular Volume 80.7 fl (82-101); Mean Platelet Volume 9.6 fL (7.4-10.4); Monocytes # 0.5 10^3/uL (0.2-0.9); Monocytes % 11.2 %; Neutrophils % 58.7 %; Nucleated Red Blood Cells % 0 %; Platelet Count 205 10^3/cmm (157-399); Red Blood Count 4.92 10^6/uL (3.85-5.65); Red Cell Distribution Width 17.1 % (12.1-15.1); White Blood Count 4.09 10^3/uL (3.29-11.43)
[2023-09-08 08:18] LABS: Ammonia 32 umol/L (16-60)
[2023-09-08 08:19] LABS: Alanine Aminotransferase 34 U/L (0-41); Albumin Level 4.1 g/dL (3.5-5.2); Alkaline Phosphatase 42 U/L (40-130); Anion Gap 11.7 (5-19); Aspartate Amino Transferase 39 U/L (0-40); Blood Urea Nitrogen 17 mg/dL (6-20); Carbon Dioxide 25 mmol/L (22-29); Chloride 107 mmol/L (98-107); Globulin 1.9 g/dL (1.3-4.6); Glomerular Filtration Rate 33.6 mL/min (90-130); Glucose 108 mg/dL (65-115); Osmolality Calculated 292 mOsm/kg (285-295); Potassium 3.7 mmol/L (3.5-5.1); Sodium 140 mmol/L (136-145); Total Bilirubin 0.3 mg/dL (0.15-1.2)
[2023-09-08 11:43] LABS: Creatine Phosphokinase 451 U/L (39-308)
[2023-09-15 07:53] LABS: Basophils % 0.8 %; Eosinophils # 0.1 10^3/uL (0.0-0.8); Eosinophils % 2.6 %; Lymphocytes # 1.1 10^3/uL (0.8-4.8); Lymphocytes % 22.5 %; Mean Corpuscular HGB Conc 30.2 g/dL (30-55); Mean Corpuscular Hemoglobin 24.1 pg (27-33); Mean Corpuscular Volume 79.6 fl (82-101); Mean Platelet Volume 9.6 fL (7.4-10.4); Monocytes # 0.4 10^3/uL (0.2-0.9); Monocytes % 8.2 %; Neutrophils # 3.21 10^3/uL (1.8-7.7); Neutrophils % 63.9 %; Nucleated Red Blood Cells % 0 %; Platelet Count 201 10^3/cmm (157-399); Red Cell Distribution Width 15.9 % (12.1-15.1); White Blood Count 5.02 10^3/uL (3.29-11.43)
[2023-09-15 08:09] LABS: Alanine Aminotransferase 28 U/L (0-41); Albumin Level 4.6 g/dL (3.5-5.2); Alkaline Phosphatase 48 U/L (40-130); Anion Gap 14.4 (5-19); Aspartate Amino Transferase 26 U/L (0-40); Blood Urea Nitrogen 20 mg/dL (6-20); Calcium 9.5 mg/dL (8.5-10.5); Carbon Dioxide 25 mmol/L (22-29); Chloride 103 mmol/L (98-107); Creatine Phosphokinase 188 U/L (39-308); Globulin 2.2 g/dL (1.3-4.6); Glomerular Filtration Rate 31.8 mL/min (90-130); Glucose 134 mg/dL (65-115); Osmolality Calculated 291 mOsm/kg (285-295); Potassium 4.4 mmol/L (3.5-5.1); Sodium 138 mmol/L (136-145); Total Bilirubin 0.5 mg/dL (0.15-1.2); Total Protein 6.8 g/dL (6.6-8.7)
[2023-09-15 08:10] LABS: Ammonia 18 umol/L (16-60)
== END 2023-09-25 23:59 | disposition home or self-care (01) ==
LOC: LAB 07:34
PROVIDERS: PCP Family Medicine; Visit Provider Family Medicine
DX: E74.04 McArdle disease (principal); I10 Essential (primary) hypertension; M62.82 Rhabdomyolysis
CPT/HCPCS: 36415; 80053; 82140; 82550; 85025

== ENCOUNTER 2023-09-23 13:15 | Outpatient (CLI) | payer MEDICARE, MEDICAID, SELFPAY ==
[2023-09-23 13:40] LABS: Basophils % 0.8 %; Eosinophils # 0.2 10^3/uL (0.0-0.8); Eosinophils % 2.8 %; Hematocrit 43.5 % (37-53); Lymphocytes # 1.4 10^3/uL (0.8-4.8); Mean Corpuscular HGB Conc 30.6 g/dL (30-55); Mean Corpuscular Hemoglobin 24.3 pg (27-33); Mean Corpuscular Volume 79.4 fl (82-101); Mean Platelet Volume 10.2 fL (7.4-10.4); Monocytes # 0.4 10^3/uL (0.2-0.9); Monocytes % 7.4 %; Neutrophils # 3.31 10^3/uL (1.8-7.7); Neutrophils % 62.8 %; Nucleated Red Blood Cells % 0 %; Platelet Count 187 10^3/cmm (157-399); Red Blood Count 5.48 10^6/uL (3.85-5.65); Red Cell Distribution Width 15.4 % (12.1-15.1); White Blood Count 5.27 10^3/uL (3.29-11.43)
[2023-09-23 13:57] LABS: Alanine Aminotransferase 24 U/L (0-41); Albumin Level 4.7 g/dL (3.5-5.2); Alkaline Phosphatase 49 U/L (40-130); Anion Gap 14.3 (5-19); Aspartate Amino Transferase 25 U/L (0-40); Blood Urea Nitrogen 25 mg/dL (6-20); Calcium 9.9 mg/dL (8.5-10.5); Carbon Dioxide 26 mmol/L (22-29); Chloride 101 mmol/L (98-107); Creatine Phosphokinase 167 U/L (39-308); Globulin 1.7 g/dL (1.3-4.6); Glomerular Filtration Rate 33.6 mL/min (90-130); Glucose 89 mg/dL (65-115); Osmolality Calculated 288 mOsm/kg (285-295); Potassium 4.3 mmol/L (3.5-5.1); Sodium 137 mmol/L (136-145); Total Bilirubin 0.3 mg/dL (0.15-1.2); Total Protein 6.4 g/dL (6.6-8.7)
[2023-09-23 13:58] LABS: Ammonia 25 umol/L (16-60)
== END 2023-09-23 13:16 | disposition home or self-care (01) ==
PROVIDERS: PCP Family Medicine; Visit Provider Family Medicine
DX: E74.04 McArdle disease (principal); I10 Essential (primary) hypertension; M62.82 Rhabdomyolysis; Z79.899 Other long term (current) drug therapy
CPT/HCPCS: 36415; 80053; 82140; 82550; 85025

== ENCOUNTER 2023-10-05 17:09 | Emergency (ER) | payer MEDICARE, MEDICAID, SELFPAY ==
--- NOTE | 2023-10-05 17:13 | ECG_ITS ---
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 Measurements Intervals [place] Rate: 66 P: 42 WI: 146 QRS: 29 QRSD: 97 T: 45 QT: 375 QTc: 394 Interpretive Statements SINUS RHYTHM INTERPRETATION BASED ON A DEFAULT AGE OF 40 YEARS Compared to ECG 11/24/2022 06:11:32 Left ventricular hypertrophy no longer present Electronically Signed On 10-06-2023 15:53:59 BRANCH OFFICE ADMINISTRATOR by Krish Galaviz M.D. [email or web address].[employer]/store/Ov/[id number]
[2023-10-05 17:16] VITALS: BP 140/88; PULSE 72; RESP 16; TEMP 36.4; O2SAT 98; BMI 26.6
--- NOTE | 2023-10-05 17:41 | XRR_ITS ---
PROCEDURE INFORMATION: Exam: XR Chest Exam date and time: 10/05/2023 6:32 PM Age: 48 years old Clinical indication: Shortness of breath; Prior surgery; Surgery date: 6+ months; Surgery type: Coronary stents; Patient HX: C/O SOB; Additional info: Dyspnea TECHNIQUE: Imaging protocol: Radiologic exam of the chest. Views: 1 view. COMPARISON: CR XR chest 2V* [id number] 12/10/2022 3:10 PM FINDINGS: Lungs: Unremarkable. No consolidation. Pleural spaces: Unremarkable. No pleural effusion. No pneumothorax. Heart/Mediastinum: Unremarkable. No cardiomegaly. Bones/joints: Unremarkable. XR/XR chest 1V portable [id number] IMPRESSION: No acute findings.
--- NOTE | 2023-10-05 17:50 | ED_ITS ---
HPI - Back Pain/Injury 2 General: Chief Complaint: Back Pain/Injury Stated Complaint: back pain,previous heart attacks Time Seen by Provider: 10/05/23 17:40 History of Present Illness: 48-year-old male presents to the emergen cy department with complaints of chest pressure to the middle of his chest that is radiating through to his back. He states he does have a history of previous myocardial infarction's and cardiac stents and he states this feels very similar to his previous heart attack. He states that he does have nausea without vomiting and does feel like he is having shortness of breath that started approximately 1 and half hours ago. He states he has a history of a aortic aneurysm that is 4.5 cm and was inoperable at that time. He also states that he has a history of stage III renal failure. He states his current chest pain is a 6 out of 10 at present. Associated symptoms: Reports nausea Review of Systems 2 General: Reports: 10 or more systems reviewed and unremarkable except in HPI and below Card: Reports: chest pain Resp: Reports: dyspnea GI: Reports: nausea PFSH ED 2 PFSH: Medical History (Updated 10/05/23 @ 21:39 by Andry Barth MD) CKD (chronic kidney disease) stage 3, GFR 30-59 ml/min Vitamin D deficiency, unspecified Acute depression Arteriosclerotic heart disease GERD (gastroesophageal reflux disease) Chronic rhinitis Obstructive sleep apnea Essential (primary) hypertension Common migraine without intractability Metabolic encephalopathy Insomnia, unspecified Tremor, unspecified Anxiety Venous insufficiency (chronic) (peripheral) Closed displaced fracture of distal phalanx of toe of left foot Chronic kidney disease, unspecified Bay disease Acute on chronic renal insufficiency Acute non-recurrent pansinusitis long-term (current) use of opiate analgesic Edema, unspecified Shortness of breath Surgical History H/O angioplasty H/O arthroscopic knee surgery Hx of tonsillectomy H/O heart surgery S/P hemodialysis catheter insertion Family History Mother , AT AGE 55 Hypertension Diabetes [place]'s disease Father , AT AGE 55 Alcoholism Social History Smoking and tobacco/nicotine status: current every day tobacco/nicotine user cigarettes Packs smoked per day: 0.5 Alcohol intake: current Alcohol intake frequency: holidays/special occasions only Substance/Drug Use: never Marital status: Current occupational status: disabled Do you think of yourself as: Straight/Heterosexual Physical Exam 2 Narrative: EXAM NARRATIVE: Constitutional: the patient appears well nourished and with normal development. Vital signs reviewed as documented. HENMT: Normocephalic, atraumatic. Extermal ears with normal appearance without drainage. Nose without drainage, normal appearance. Mucus membranes moist. Neck is supple, No jugular venous distension, trachea is midline, no appreciable carotid bruits. No lymphadenopathy. No meningeal signs. Flexion, extension and lateral rotation is without pain. Eyes: Pupils are equal, round, reactive to light and accommodation. No scleral icterus. Extra-ocular movement are intact. Thorax is symmetrical and with equal rise and fall with respirations. Resp: Lungs are clear to auscultation. No wheezes, rales, crackles or ronchi at present. Cardio: Regular rate and rhythm. Positive S1, S2. No appreciable murmurs, rubs or gallops. GI: Abdominal exam reveals normal bowel sounds to all quadrants. No organomegaly. No obvious palpable masses noted. No hepatomegally appreciated. Soft, nontender to palpation. Extremity: Extremities are non-edematous and both femoral and pedal pulses are 2+ and equal bilaterally. Moves all extremities well, sensation in all extremities. Neuro: Alert and oriented x4, person, place, time and situation. Cranial nerves II through XII are grossly intact, there is no focal neurological deficits that I can appreciate at present. Motor strength in the upper and lower extremities are equal and bilateral 5/5. Psych: Cooperative, calm, normal thought process, appropriate judgment. Skin: No lesions, rashes. No gross abnormalities noted. Back: Symmetrical, no obvious deformity, No CVA tenderness Course 2 Reevaluation(s): Reevaluation #1: Improved pain control discussed with the patient the plan of care as well as follow-up. Discussed the CT scan findings as well as the importance to continue to fluid hydrate for renal protective reasons. Time: 21:37 Vital Signs: Vital signs: Vital Signs Temperature 97.5 F L 10/05/23 17:16 Pulse Rate 59 L 10/05/23 21:02 Respiratory Rate 17 12/10/23 21:02 Blood Pressure 148/86 10/05/23 21:02 Pulse Oximetry 98 10/05/23 21:02 Oxygen Delivery Me thod Room Air 10/05/23 17:16 MDM - Back Pain/Injury Medical Decision Making Physical exam completed and documented, I will obtain serial cardiac enzymes, serial twelve-lead EKGs, chest x-ray, CBC, CMP, urinalysis, B-type natriuretic peptide, PT/PTT/INR, and a chest x-ray. I provide cardiac dose aspirin if indicated and nitroglycerin administration if indicated. I have reviewed any pervious and pertinent medical records for assist in obtaining beneficial medical information to improved the care and treatment of the patient. Differential diagnosis includes myocardial infarction, worsening aortic aneurysm, pancreatitis, atypical chest pain, pneumonia, Medical Records I reviewed the patient's medical records. Labs I reviewed the patient's lab results. 10/05/23 18:49 10/05/23 18:49 Radiology Impressions Chest X-Ray 10/05/23 17:41 IMPRESSION: No acute findings. Chest CT 10/05/23 19:14 IMPRESSION: 1. Negative for pulmonary embolus. 2. Coronary artery atherosclerotic calcifications. 3. Hepatic steatosis. 4. Right lower lobe 4.5 mm pulmonary nodule, series 4, image 36, right lower lobe 7.7 mm pulmonary nodule, series 4, image 47. For patients at low risk (minimal or absent history of smoking and of other known risk factors), recommend CT Chest at 3-6 months, then consider CT Chest at 18-24 months. For patients at high risk (history of smoking or of other known risk factors), recommend CT Chest at 3-6 months, then CT Chest at 18-24 months. (Reference: Linette) 5. Scattered nonspecific subcentimeter short axis mediastinal lymph nodes. 6. Ascending thoracic aorta somewhat dilated at 3.7 cm. REFERENCES: Linette Power, et al. Guidelines for Management of Incidental Pulmonary Nodules Detected on CT Images: From the Fleischner Society 2017. Radiology. 2017;284(1):228-243. Laboratory Results WBC 4.94 10^3/uL (3.29-11.43) 10/05/23 18:49 RBC 5.16 10^6/uL (3.85-5.65) 10/05/23 18:49 Hgb 12.60 g/dL (11.27-16.99) 10/05/23 18:49 Hct 41.3 % (37-53) 10/05/23 18:49 MCV 80.0 fl (82-101) L 10/05/23 18:49 MCH 24.4 pg (27-33) L 10/05/23 18:49 MCHC 30.5 g/dL (30-55) 10/05/23 18:49 RDW 16.0 % (12.1-15.1) H 10/05/23 18:49 Plt Count 235 10^3/cmm (157-399) 10/05/23 18:49 MPV 10.4 fL (7.4-10.4) 10/05/23 18:49 Neut % (Auto) 54.7 % 10/05/23 18:49 Lymph % (Auto) 30.4 % 10/05/23 18:49 [place] % (Auto) 9.7 % 10/05/23 18:49 Eos % (Auto) 4.0 % 10/05/23 18:49 Baso % (Auto) 1.0 % 10/05/23 18:49 Neut # (Auto) 2.70 10^3/uL (1.8-7.7) 10/05/23 18:49 Lymph # (Auto) 1.5 10^3/uL (0.8-4.8) 10/05/23 18:49 [place] # (Auto) 0.5 10^3/uL (0.2-0.9) 10/05/23 18:49 Eos # (Auto) 0.2 10^3/uL (0.0-0.8) 10/05/23 18:49 Baso # (Auto) 0.1 10^3/uL (0.0-0.1) 10/05/23 18:49 Nucleated RBC % (auto) 0 % 10/05/23 18:49 Nucleated RBCs # 0.0 /100WBC 10/05/23 18:49 PT 11.80 SECONDS (12.1-14.9) L 10/05/23 18:49 INR 0.84 (0.8-1.2) 10/05/23 18:49 APTT 25.9 SECONDS (23.9-36.7) 10/05/23 18:49 Sodium 137 mmol/L (136-145) 10/05/23 18:49 Potassium 4.1 mmol/L (3.5-5.1) 10/05/23 18:49 Chloride 105 mmol/L (98-107) 10/05/23 18:49 Carbon Dioxide 20 mmol/L (22-29) L 10/05/23 18:49 Anion Gap 16.1 (5-19) 10/05/23 18:49 BUN 23 mg/dL (6-20) H 10/05/23 18:49 Creatinine 2.4 mg/dL (0.7-1.2) H 10/05/23 18:49 GFR Calculation 28.8 mL/min (90-130) L 10/05/23 18:49 Glucose 84 mg/dL (65-115) 10/05/23 18:49 Calculated Osmolality 287 mOsm/kg (285-295) 10/05/23 18:49 Calcium 9.1 mg/dL (8.5-10.5) 10/05/23 18:49 Total Bilirubin 0.2 mg/dL (0.15-1.2) 10/05/23 18:49 AST 32 U/L (0-40) 10/05/23 18:49 ALT 22 U/L (0-41) 10/05/23 18:49 Alkaline Phosphatase 53 U/L (40-130) 10/05/23 18:49 Troponin T Baseline 18 ng/L (0-15) H 10/05/23 18:49 Troponin T 120 Minute 19.27 ng/L (0-15) H 10/05/23 20:56 Delta Troponin T 1.27 ABS# (0-10) 10/05/23 20:56 NT-Pro-B Natriuret Pep 92 pg/mL (0-125) 10/05/23 18:49 Total Protein 6.1 g/dL (6.6-8.7) L 10/05/23 18:49 Albumin 4.5 g/dL (3.5-5.2) 10/05/23 18:49 Globulin 1.6 g/dL (1.3-4.6) 10/05/23 18:49 All radiology interpretation(s) finalized by discharge EKG Data EKG 1: Interpretation: Twelve-lead EKG obtained at 1713 and reviewed at 1716 demonstrates normal sinus rhythm with a ventricular rate of [address] interval 146 QRS duration 97, QT 375 and QTc [address] elevation or depression to demonstrate acute ischemia or infarction at present. EKG 2: Interpretation: Repeat twelve-lead EKG #2 obtained at 194 reviewed at 194 demonstrates sinus bradycardia with a ventricular rate of 58 CT interval 164, QRS duration 98 QT [address] elevation or depression to demonstrate acute ischemia or infarction at present. Discharge Plan Discharge Patient Disposition: Home Clinical Impression: Atypical chest pain Chronic renal insufficiency, stage III (moderate) Qualifiers: Chronic kidney disease stage 3 subtype: unspecified whether 3a or 3b Qualified Code(s): N18.30 - Chronic kidney disease, stage 3 unspecified Condition: Stable Prescriptions: No Action aspirin 325 mg tablet 81 mg PO DAILY cholecalciferol (vitamin D3) 1,000 unit capsule 1,000 unit PO DAILY amlodipine [Norvasc] 10 mg tablet 10 mg PO DAILY Qty: 90 4RF Repatha Syringe 140 mg/mL syringe 140 mg SUBCUT ONCE potassium chloride 20 mEq tablet extended release 20 meq PO DAILY chlorthalidone 25 mg tablet 25 mg PO DAILY furosemide [Lasix] 20 mg tablet 20 mg PO BID trazodone 150 mg tablet 150 mg PO .HS Qty: 30 2RF metoprolol succinate 25 mg tablet extended release 24 hr 25 mg PO BID Qty: 180 2RF isosorbide mononitrate 30 mg tablet extended release 24 hr 30 mg PO BID Qty: 90 4RF Discharge Orders: Discharge ED (Routine); Ordered 10/05/23 Ordered By: Andry Barth Referrals: Hina Zaragoza DO [Primary Care Provider] - Discharge Diet: Low Salt Discharge Activity: Resume usual activity Patient Instructions: Opioid Safety, Pain Management Activity Restrictions/Additional Instructions: Activity Restrictions/Additional Instructions: Thank you for choosing [facility] for your healthcare needs today. Please realize that you were seen in the Emergency Department and that we are providing you with an emergency medical screening exam and this may not be a complete and all inclusive of all the testing and or medical work-up that you may need to determine your ailment or severity of your illness. It is very important that you follow-up as instructed with your Primary care provider or Specialist for additional evaluation and to discuss your medical treatment plan. You may return to the Emergency Department should you have concerns or if your condition changes or worsens in any way. Coding Level of Care Code ED Student Services Vice President for Jin Holbrook
[2023-10-05] MEDS: aspirin 81 mg Chew Tablet 324 MG PO (18:06)
[2023-10-05 18:10] VITALS: BP 141/86; PULSE 76
[2023-10-05] MEDS: nitroglycerin 1 gm/inch oint Pkt 1 INCH TOPICAL (18:10)
[2023-10-05 19:00] LABS: Basophils # 0.1 10^3/uL (0.0-0.1); Eosinophils # 0.2 10^3/uL (0.0-0.8); Hematocrit 41.3 % (37-53); Lymphocytes # 1.5 10^3/uL (0.8-4.8); Lymphocytes % 30.4 %; Mean Corpuscular HGB Conc 30.5 g/dL (30-55); Mean Corpuscular Hemoglobin 24.4 pg (27-33); Mean Platelet Volume 10.4 fL (7.4-10.4); Monocytes # 0.5 10^3/uL (0.2-0.9); Monocytes % 9.7 %; Neutrophils % 54.7 %; Nucleated Red Blood Cells % 0 %; Platelet Count 235 10^3/cmm (157-399); Red Blood Count 5.16 10^6/uL (3.85-5.65); White Blood Count 4.94 10^3/uL (3.29-11.43)
[2023-10-05 19:08] LABS: INR 0.84 (0.8-1.2); Partial Thromboplastin Time 25.9 SECONDS (23.9-36.7)
[2023-10-05 19:14] LABS: Troponin(5th) Baseline 18 ng/L (0-15)
--- NOTE | 2023-10-05 19:14 | CTR_ITS ---
PROCEDURE INFORMATION: Exam: CT Chest With Contrast; Diagnostic Exam date and time: 10/05/2023 7:26 PM Age: 48 years old Clinical indication: Radiating; Prior surgery; Surgery date: 6+ months; Surgery type: Coronary stents; Patient HX: C/O chest pain with posterior radiation. Elevated base troponin. ; Additional info: Cxp radiating to back with history of aortic aneurysm TECHNIQUE: Imaging protocol: Diagnostic computed tomography of the chest with contrast. Radiation optimization: All CT scans at this facility use at least one of these dose optimization techniques: automated exposure control; mA and/or kV adjustment per patient size (includes targeted exams where dose is matched to clinical indication); or iterative reconstruction. Contrast material: OMNI 350; Contrast volume: 100 ml; Contrast route: INTRAVENOUS (IV); REPORTING DATA: Count of CT and Cardiac NM exams in prior 12 months: This patient has received 2 known CTs and 0 known cardiac nuclear medicine studies in the 12 months prior to the current study. COMPARISON: CR (CHEST, ) 10/05/2023 6:32 PM RADIATION DOSE METRICS: Total DLP (mGy-cm): 464.83 FINDINGS: Lungs: Right lower lobe 4.5 mm pulmonary nodule, series 4, image 36, right lower lobe 7.7 mm pulmonary nodule, series 4, image 47. Pleural spaces: Unremarkable. No pneumothorax. No pleural effusion. Heart: Unremarkable. No cardiomegaly. No pericardial effusion. Coronary arteries: Coronary artery atherosclerotic calcifications. Lymph nodes: Scattered nonspecific subcentimeter short axis mediastinal lymph nodes. Vasculature: Ascending thoracic aorta somewhat dilated at 3.7 cm. Liver: Hepatic steatosis. Bones/joints: Unremarkable. No acute fracture. Soft tissues: Unremarkable. CT/CT chest w con* [id number] IMPRESSION: 1. Negative for pulmonary embolus. 2. Coronary artery atherosclerotic calcifications. 3. Hepatic steatosis. 4. Right lower lobe 4.5 mm pulmonary nodule, series 4, image 36, right lower lobe 7.7 mm pulmonary nodule, series 4, image 47. For patients at low risk (minimal or absent history of smoking and of other known risk factors), recommend CT Chest at 3-6 months, then consider CT Chest at 18-24 months. For patients at high risk (history of smoking or of other known risk factors), recommend CT Chest at 3-6 months, then CT Chest at 18-24 months. (Reference: Linette) 5. Scattered nonspecific subcentimeter short axis mediastinal lymph nodes. 6. Ascending thoracic aorta somewhat dilated at 3.7 cm. REFERENCES: Linette Power, et al. Guidelines for Management of Incidental Pulmonary Nodules Detected on CT Images: From the Fleischner Society 2017. Radiology. 2017;284(1):228-243.
[2023-10-05] MEDS: iohexol 350 mg/mL 500 mL Btl (per mL) IV (19:30)
[2023-10-05 19:32] LABS: Alanine Aminotransferase 22 U/L (0-41); Albumin Level 4.5 g/dL (3.5-5.2); Alkaline Phosphatase 53 U/L (40-130); Blood Urea Nitrogen 23 mg/dL (6-20); Calcium 9.1 mg/dL (8.5-10.5); Carbon Dioxide 20 mmol/L (22-29); Chloride 105 mmol/L (98-107); Globulin 1.6 g/dL (1.3-4.6); Glomerular Filtration Rate 28.8 mL/min (90-130); Glucose 84 mg/dL (65-115); Osmolality Calculated 287 mOsm/kg (285-295); Sodium 137 mmol/L (136-145); Total Bilirubin 0.2 mg/dL (0.15-1.2); Total Protein 6.1 g/dL (6.6-8.7)
[2023-10-05 19:33] LABS: Anion Gap 16.1 (5-19); Aspartate Amino Transferase 32 U/L (0-40); Potassium 4.1 mmol/L (3.5-5.1)
[2023-10-05 19:34] LABS: NT Pro B Type Natriuretic Pept 92 pg/mL (0-125)
--- NOTE | 2023-10-05 19:48 | ECG_ITS ---
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 Measurements Intervals [place] Rate: 58 P: 32 PA: 164 QRS: 4 QRSD: 98 T: 40 QT: 418 QTc: 413 Interpretive Statements SINUS BRADYCARDIA Compared to ECG 10/05/2023 17:13:26 Sinus rhythm no longer present Electronically Signed On 10-06-2023 15:58:35 ELECTRONIC INDUCTION HARDENER by Krish Galaviz M.D. [id number]
[2023-10-05] MEDS: lidocaine 2% viscous 15 ML, aluminum-mag hydrox-simethicon 30 ML, sucralfate oral liq 1 GM PO (20:48)
[2023-10-05 21:02] VITALS: BP 148/86; PULSE 59; RESP 17; O2SAT 98
[2023-10-05 21:35] LABS: Troponin 5 2HR 19.27 ng/L (0-15); Troponin 5 2HR Delta 1.27 ABS# (0-10)
[2023-10-05 21:53] VITALS: BP 150/98; PULSE 78; O2SAT 96
== END 2023-10-05 21:54 | disposition home or self-care (01) ==
PROVIDERS: Emergency Provider Internal Medicine; PCP Family Medicine
DX: R07.89 Other chest pain (principal); I12.9 Hypertensive chronic kidney disease with stage 1 through stage 4 chronic kidney disease, or unspecified chronic kidney disease; N18.30 Chronic kidney disease, stage 3 unspecified; F17.210 Nicotine dependence, cigarettes, uncomplicated; I25.10 Atherosclerotic heart disease of native coronary artery without angina pectoris; R91.1 Solitary pulmonary nodule
CPT/HCPCS: 36415; 71045; 71260; 80053; 83880; 84484; 85025; 85610; 85730; 93005; 99285; Q9967

== ENCOUNTER 2023-10-13 08:40 | Outpatient (RCR) | payer MEDICARE, MEDICAID, SELFPAY ==
[2023-10-06 09:44] LABS: Basophils % 0.6 %; Eosinophils # 0.1 10^3/uL (0.0-0.8); Eosinophils % 2.9 %; Hematocrit 41.5 % (37-53); Lymphocytes # 1.2 10^3/uL (0.8-4.8); Lymphocytes % 24.3 %; Mean Corpuscular HGB Conc 31.1 g/dL (30-55); Mean Corpuscular Hemoglobin 24.5 pg (27-33); Mean Corpuscular Volume 78.7 fl (82-101); Mean Platelet Volume 10.1 fL (7.4-10.4); Monocytes # 0.5 10^3/uL (0.2-0.9); Monocytes % 9.3 %; Neutrophils # 3.05 10^3/uL (1.8-7.7); Neutrophils % 62.9 %; Nucleated Red Blood Cells % 0 %; Platelet Count 216 10^3/cmm (157-399); Red Blood Count 5.27 10^6/uL (3.85-5.65); White Blood Count 4.85 10^3/uL (3.29-11.43)
[2023-10-06 09:48] LABS: Alanine Aminotransferase 22 U/L (0-41); Albumin Level 4.5 g/dL (3.5-5.2); Alkaline Phosphatase 42 U/L (40-130); Aspartate Amino Transferase 26 U/L (0-40); Blood Urea Nitrogen 20 mg/dL (6-20); Calcium 9.2 mg/dL (8.5-10.5); Carbon Dioxide 23 mmol/L (22-29); Chloride 104 mmol/L (98-107); Creatine Phosphokinase 304 U/L (39-308); Globulin 2.1 g/dL (1.3-4.6); Glomerular Filtration Rate 30.2 mL/min (90-130); Glucose 93 mg/dL (65-115); Osmolality Calculated 286 mOsm/kg (285-295); Sodium 137 mmol/L (136-145); Total Bilirubin 0.4 mg/dL (0.15-1.2); Total Protein 6.6 g/dL (6.6-8.7)
[2023-10-06 09:51] LABS: Ammonia 42 umol/L (16-60)
[2023-10-13 09:02] LABS: Basophils % 0.8 %; Eosinophils # 0.1 10^3/uL (0.0-0.8); Eosinophils % 2.3 %; Hematocrit 43.2 % (37-53); Lymphocytes # 1.2 10^3/uL (0.8-4.8); Lymphocytes % 25.6 %; Mean Corpuscular HGB Conc 30.6 g/dL (30-55); Mean Corpuscular Hemoglobin 24.1 pg (27-33); Mean Platelet Volume 9.9 fL (7.4-10.4); Monocytes # 0.4 10^3/uL (0.2-0.9); Neutrophils % 63.1 %; Nucleated Red Blood Cells % 0 %; Platelet Count 194 10^3/cmm (157-399); Red Blood Count 5.47 10^6/uL (3.85-5.65); Red Cell Distribution Width 15.6 % (12.1-15.1); White Blood Count 4.76 10^3/uL (3.29-11.43)
[2023-10-13 09:23] LABS: Alanine Aminotransferase 26 U/L (0-41); Albumin Level 4.4 g/dL (3.5-5.2); Alkaline Phosphatase 44 U/L (40-130); Ammonia 28 umol/L (16-60); Anion Gap 13.8 (5-19); Aspartate Amino Transferase 31 U/L (0-40); Blood Urea Nitrogen 20 mg/dL (6-20); Calcium 8.7 mg/dL (8.5-10.5); Carbon Dioxide 23 mmol/L (22-29); Chloride 106 mmol/L (98-107); Globulin 2.1 g/dL (1.3-4.6); Glomerular Filtration Rate 33.6 mL/min (90-130); Glucose 90 mg/dL (65-115); Osmolality Calculated 290 mOsm/kg (285-295); Potassium 3.8 mmol/L (3.5-5.1); Sodium 139 mmol/L (136-145); Total Bilirubin 0.4 mg/dL (0.15-1.2); Total Protein 6.5 g/dL (6.6-8.7)
[2023-10-13 11:26] LABS: Creatine Phosphokinase 413 U/L (39-308)
== END 2023-10-26 23:59 | disposition home or self-care (01) ==
LOC: LAB 08:40
PROVIDERS: PCP Family Medicine; Visit Provider Family Medicine
DX: E74.04 McArdle disease (principal); I10 Essential (primary) hypertension; M62.82 Rhabdomyolysis
CPT/HCPCS: 36415; 80053; 82140; 82550; 85025

== ENCOUNTER 2023-10-14 08:35 | Oncology outpatient (recurring) (ONCR) | payer MEDICARE, MEDICAID, SELFPAY ==
[2023-10-14 08:46] VITALS: BP 125/85; PULSE 62; RESP 16; TEMP 35.9; O2SAT 98
[2023-10-14] MEDS: sodium chloride 0.9% 1,000 ML 999 ML IV (08:47)
== END 2023-10-26 23:59 | disposition home or self-care (01) ==
LOC: ONCMED 08:36
PROVIDERS: PCP Family Medicine; Visit Provider Family Medicine
DX: M62.82 Rhabdomyolysis (principal); E74.04 McArdle disease
CPT/HCPCS: 96360; 96361; J7030

== ENCOUNTER 2023-10-21 07:19 | Outpatient (RCR) | payer MEDICARE, MEDICAID, SELFPAY ==
[2023-09-29 08:24] LABS: Basophils # 0.1 10^3/uL (0.0-0.1); Eosinophils # 0.2 10^3/uL (0.0-0.8); Eosinophils % 2.9 %; Hematocrit 43.1 % (37-53); Lymphocytes # 1.3 10^3/uL (0.8-4.8); Lymphocytes % 25.5 %; Mean Corpuscular HGB Conc 30.4 g/dL (30-55); Mean Corpuscular Hemoglobin 24.2 pg (27-33); Mean Corpuscular Volume 79.5 fl (82-101); Mean Platelet Volume 10.2 fL (7.4-10.4); Monocytes # 0.4 10^3/uL (0.2-0.9); Monocytes % 8.1 %; Neutrophils # 3.22 10^3/uL (1.8-7.7); Neutrophils % 62.1 %; Nucleated Red Blood Cells % 0 %; Platelet Count 207 10^3/cmm (157-399); Red Blood Count 5.42 10^6/uL (3.85-5.65); Red Cell Distribution Width 16.1 % (12.1-15.1); White Blood Count 5.18 10^3/uL (3.29-11.43)
[2023-09-29 08:48] LABS: Ammonia 25 umol/L (16-60)
[2023-09-29 08:57] LABS: Alanine Aminotransferase 18 U/L (0-41); Albumin Level 4.6 g/dL (3.5-5.2); Alkaline Phosphatase 44 U/L (40-130); Aspartate Amino Transferase 18 U/L (0-40); Blood Urea Nitrogen 19 mg/dL (6-20); Calcium 9.3 mg/dL (8.5-10.5); Carbon Dioxide 24 mmol/L (22-29); Chloride 105 mmol/L (98-107); Creatine Phosphokinase 230 U/L (39-308); Globulin 1.8 g/dL (1.3-4.6); Glomerular Filtration Rate 31.8 mL/min (90-130); Glucose 98 mg/dL (65-115); Osmolality Calculated 288 mOsm/kg (285-295); Sodium 138 mmol/L (136-145); Total Bilirubin 0.3 mg/dL (0.15-1.2); Total Protein 6.4 g/dL (6.6-8.7)
[2023-09-29 08:59] LABS: Cholesterol 131 mg/dL (0-200); HDL Cholesterol 41 mg/dL (60-100); LDL Cholesterol Calculated 73 mg/dL (50-129); LDL HDL Ratio 1.78 RATIO (0.00-3.22); Triglycerides 87 mg/dL (0-150)
[2023-10-21 07:38] LABS: Basophils # 0.1 10^3/uL (0.0-0.1); Basophils % 1.1 %; Eosinophils # 0.2 10^3/uL (0.0-0.8); Eosinophils % 4.2 %; Hematocrit 43.5 % (37-53); Lymphocytes # 1.2 10^3/uL (0.8-4.8); Lymphocytes % 25.7 %; Mean Corpuscular HGB Conc 30.6 g/dL (30-55); Mean Corpuscular Hemoglobin 23.9 pg (27-33); Mean Corpuscular Volume 78.2 fl (82-101); Mean Platelet Volume 9.7 fL (7.4-10.4); Monocytes # 0.4 10^3/uL (0.2-0.9); Monocytes % 8.6 %; Neutrophils # 2.73 10^3/uL (1.8-7.7); Nucleated Red Blood Cells % 0 %; Platelet Count 150 10^3/cmm (157-399); Red Blood Count 5.56 10^6/uL (3.85-5.65); Red Cell Distribution Width 15.3 % (12.1-15.1); White Blood Count 4.55 10^3/uL (3.29-11.43)
[2023-10-21 07:55] LABS: Alanine Aminotransferase 27 U/L (0-41); Albumin Level 4.6 g/dL (3.5-5.2); Alkaline Phosphatase 52 U/L (40-130); Aspartate Amino Transferase 24 U/L (0-40); Blood Urea Nitrogen 18 mg/dL (6-20); Calcium 9.6 mg/dL (8.5-10.5); Carbon Dioxide 27 mmol/L (22-29); Chloride 105 mmol/L (98-107); Creatine Phosphokinase 231 U/L (39-308); Globulin 2.1 g/dL (1.3-4.6); Glomerular Filtration Rate 37.7 mL/min (90-130); Glucose 102 mg/dL (65-115); Osmolality Calculated 294 mOsm/kg (285-295); Sodium 141 mmol/L (136-145); Total Bilirubin 0.3 mg/dL (0.15-1.2); Total Protein 6.7 g/dL (6.6-8.7)
[2023-10-21 07:56] LABS: Ammonia 20 umol/L (16-60)
== END 2023-10-26 23:59 | disposition home or self-care (01) ==
LOC: LAB 07:19
PROVIDERS: PCP Family Medicine; Visit Provider Family Medicine
DX: E74.04 McArdle disease (principal); I10 Essential (primary) hypertension; M62.82 Rhabdomyolysis
CPT/HCPCS: 36415; 80053; 80061; 82140; 82550; 85025

== ENCOUNTER 2023-11-18 06:54 | Outpatient (CLI) | payer MEDICARE, MEDICAID, SELFPAY ==
[2023-11-18 07:23] LABS: Basophils % 0.8 %; Eosinophils # 0.2 10^3/uL (0.0-0.8); Eosinophils % 3.2 %; Hematocrit 47.4 % (37-53); Lymphocytes # 1.1 10^3/uL (0.8-4.8); Lymphocytes % 21.8 %; Mean Corpuscular Hemoglobin 24.2 pg (27-33); Mean Platelet Volume 10.2 fL (7.4-10.4); Monocytes # 0.4 10^3/uL (0.2-0.9); Monocytes % 7.6 %; Neutrophils # 3.33 10^3/uL (1.8-7.7); Neutrophils % 66.4 %; Nucleated Red Blood Cells % 0 %; Platelet Count 202 10^3/cmm (157-399); Red Blood Count 6.08 10^6/uL (3.85-5.65); Red Cell Distribution Width 16.9 % (12.1-15.1); White Blood Count 5.01 10^3/uL (3.29-11.43)
[2023-11-18 07:45] LABS: Ammonia 21 umol/L (16-60)
[2023-11-18 07:47] LABS: Alanine Aminotransferase 24 U/L (0-41); Albumin Level 4.7 g/dL (3.5-5.2); Alkaline Phosphatase 56 U/L (40-130); Anion Gap 13.4 (5-19); Aspartate Amino Transferase 22 U/L (0-40); Blood Urea Nitrogen 31 mg/dL (6-20); Calcium 9.8 mg/dL (8.5-10.5); Carbon Dioxide 25 mmol/L (22-29); Chloride 104 mmol/L (98-107); Creatine Phosphokinase 236 U/L (39-308); Globulin 2.3 g/dL (1.3-4.6); Glomerular Filtration Rate 33.6 mL/min (90-130); Glucose 106 mg/dL (65-115); Osmolality Calculated 293 mOsm/kg (285-295); Potassium 4.4 mmol/L (3.5-5.1); Sodium 138 mmol/L (136-145); Total Bilirubin 0.4 mg/dL (0.15-1.2)
[2023-11-18 08:23] LABS: Prostate Specific Antigen Scr 1.25 ng/mL (0-4)
[2023-11-21 13:14] LABS: Testosterone, Free 35.7 pg/mL (46.0-224.0)
== END 2023-11-18 06:55 | disposition home or self-care (01) ==
LOC: LAB 06:57
PROVIDERS: PCP Family Medicine; Visit Provider Family Medicine
DX: E74.04 McArdle disease (principal); I10 Essential (primary) hypertension; M62.82 Rhabdomyolysis; Z01.89 Encounter for other specified special examinations
CPT/HCPCS: 36415; 80053; 82140; 82550; 84402; 84403; 85025; G0103

== ENCOUNTER 2023-11-24 07:17 | Outpatient (RCR) | payer MEDICARE, MEDICAID, SELFPAY ==
[2023-10-28 07:54] LABS: Basophils % 0.6 %; Eosinophils # 0.2 10^3/uL (0.0-0.8); Eosinophils % 3.4 %; Lymphocytes # 1.1 10^3/uL (0.8-4.8); Lymphocytes % 15.7 %; Mean Corpuscular HGB Conc 30.2 g/dL (30-55); Mean Corpuscular Hemoglobin 24.4 pg (27-33); Mean Corpuscular Volume 80.9 fl (82-101); Mean Platelet Volume 9.9 fL (7.4-10.4); Monocytes # 0.6 10^3/uL (0.2-0.9); Monocytes % 8.6 %; Neutrophils # 4.81 10^3/uL (1.8-7.7); Neutrophils % 71.4 %; Nucleated Red Blood Cells % 0 %; Platelet Count 190 10^3/cmm (157-399); Red Blood Count 5.44 10^6/uL (3.85-5.65); Red Cell Distribution Width 16.5 % (12.1-15.1); White Blood Count 6.74 10^3/uL (3.29-11.43)
[2023-10-28 08:07] LABS: Alanine Aminotransferase 28 U/L (0-41); Albumin Level 4.4 g/dL (3.5-5.2); Alkaline Phosphatase 48 U/L (40-130); Anion Gap 11.9 (5-19); Aspartate Amino Transferase 38 U/L (0-40); Blood Urea Nitrogen 17 mg/dL (6-20); Calcium 9.5 mg/dL (8.5-10.5); Carbon Dioxide 28 mmol/L (22-29); Chloride 102 mmol/L (98-107); Globulin 2.1 g/dL (1.3-4.6); Glomerular Filtration Rate 31.8 mL/min (90-130); Glucose 104 mg/dL (65-115); Osmolality Calculated 288 mOsm/kg (285-295); Potassium 3.9 mmol/L (3.5-5.1); Sodium 138 mmol/L (136-145); Total Bilirubin 0.4 mg/dL (0.15-1.2); Total Protein 6.5 g/dL (6.6-8.7)
[2023-10-28 08:08] LABS: Ammonia 33 umol/L (16-60)
[2023-10-28 08:29] LABS: Creatine Phosphokinase 902 U/L (39-308)
[2023-11-04 12:46] LABS: Basophils % 0.7 %; Eosinophils # 0.2 10^3/uL (0.0-0.8); Eosinophils % 2.7 %; Hematocrit 46.9 % (37-53); Lymphocytes # 1.4 10^3/uL (0.8-4.8); Lymphocytes % 24.1 %; Mean Corpuscular HGB Conc 29.9 g/dL (30-55); Mean Corpuscular Hemoglobin 24.3 pg (27-33); Mean Corpuscular Volume 81.6 fl (82-101); Mean Platelet Volume 9.8 fL (7.4-10.4); Monocytes # 0.7 10^3/uL (0.2-0.9); Monocytes % 12.1 %; Neutrophils # 3.53 10^3/uL (1.8-7.7); Neutrophils % 60.1 %; Nucleated Red Blood Cells % 0 %; Platelet Count 202 10^3/cmm (157-399); Red Blood Count 5.75 10^6/uL (3.85-5.65); Red Cell Distribution Width 16.6 % (12.1-15.1); White Blood Count 5.88 10^3/uL (3.29-11.43)
[2023-11-04 13:06] LABS: Ammonia 67 umol/L (16-60)
[2023-11-04 13:07] LABS: Alanine Aminotransferase 45 U/L (0-41); Albumin Level 4.2 g/dL (3.5-5.2); Alkaline Phosphatase 50 U/L (40-130); Anion Gap 14.3 (5-19); Aspartate Amino Transferase 33 U/L (0-40); Blood Urea Nitrogen 18 mg/dL (6-20); Carbon Dioxide 22 mmol/L (22-29); Chloride 105 mmol/L (98-107); Creatine Phosphokinase 226 U/L (39-308); Globulin 2.4 g/dL (1.3-4.6); Glomerular Filtration Rate 33.6 mL/min (90-130); Glucose 81 mg/dL (65-115); Osmolality Calculated 287 mOsm/kg (285-295); Potassium 3.3 mmol/L (3.5-5.1); Sodium 138 mmol/L (136-145); Total Bilirubin 0.4 mg/dL (0.15-1.2); Total Protein 6.6 g/dL (6.6-8.7)
[2023-11-10 13:22] LABS: Basophils # 0.1 10^3/uL (0.0-0.1); Basophils % 0.8 %; Eosinophils # 0.1 10^3/uL (0.0-0.8); Eosinophils % 2.2 %; Hematocrit 42.1 % (37-53); Lymphocytes # 1.3 10^3/uL (0.8-4.8); Lymphocytes % 19.7 %; Mean Corpuscular HGB Conc 30.9 g/dL (30-55); Mean Corpuscular Hemoglobin 24.1 pg (27-33); Mean Platelet Volume 10.2 fL (7.4-10.4); Monocytes # 0.5 10^3/uL (0.2-0.9); Monocytes % 8.3 %; Neutrophils # 4.47 10^3/uL (1.8-7.7); Neutrophils % 68.7 %; Nucleated Red Blood Cells % 0 %; Platelet Count 203 10^3/cmm (157-399); Red Cell Distribution Width 16.1 % (12.1-15.1)
[2023-11-10 13:34] LABS: Ammonia 26 umol/L (16-60)
[2023-11-10 13:35] LABS: Alanine Aminotransferase 22 U/L (0-41); Albumin Level 4.2 g/dL (3.5-5.2); Alkaline Phosphatase 49 U/L (40-130); Aspartate Amino Transferase 21 U/L (0-40); Blood Urea Nitrogen 21 mg/dL (6-20); Calcium 9.3 mg/dL (8.5-10.5); Carbon Dioxide 26 mmol/L (22-29); Chloride 104 mmol/L (98-107); Creatine Phosphokinase 161 U/L (39-308); Globulin 2.1 g/dL (1.3-4.6); Glomerular Filtration Rate 27.5 mL/min (90-130); Glucose 84 mg/dL (65-115); Osmolality Calculated 290 mOsm/kg (285-295); Sodium 139 mmol/L (136-145); Total Bilirubin 0.3 mg/dL (0.15-1.2); Total Protein 6.3 g/dL (6.6-8.7)
[2023-11-10 13:38] LABS: Anion Gap 13.4 (5-19); Potassium 4.4 mmol/L (3.5-5.1)
[2023-11-24 07:36] LABS: Basophils % 0.8 %; Eosinophils # 0.2 10^3/uL (0.0-0.8); Eosinophils % 3.2 %; Hematocrit 42.3 % (37-53); Lymphocytes % 19.2 %; Mean Corpuscular HGB Conc 30.7 g/dL (30-55); Mean Corpuscular Hemoglobin 24.5 pg (27-33); Mean Corpuscular Volume 79.8 fl (82-101); Mean Platelet Volume 9.7 fL (7.4-10.4); Monocytes # 0.5 10^3/uL (0.2-0.9); Monocytes % 9.2 %; Neutrophils # 3.37 10^3/uL (1.8-7.7); Neutrophils % 67.4 %; Nucleated Red Blood Cells % 0 %; Platelet Count 189 10^3/cmm (157-399); Red Cell Distribution Width 17.6 % (12.1-15.1)
[2023-11-24 07:55] LABS: Ammonia 26 umol/L (16-60)
[2023-11-24 07:56] LABS: Alanine Aminotransferase 25 U/L (0-41); Albumin Level 4.2 g/dL (3.5-5.2); Alkaline Phosphatase 41 U/L (40-130); Anion Gap 11.4 (5-19); Aspartate Amino Transferase 36 U/L (0-40); Blood Urea Nitrogen 22 mg/dL (6-20); Calcium 9.2 mg/dL (8.5-10.5); Carbon Dioxide 28 mmol/L (22-29); Chloride 102 mmol/L (98-107); Globulin 2.2 g/dL (1.3-4.6); Glomerular Filtration Rate 26.3 mL/min (90-130); Glucose 106 mg/dL (65-115); Osmolality Calculated 288 mOsm/kg (285-295); Potassium 4.4 mmol/L (3.5-5.1); Sodium 137 mmol/L (136-145); Total Bilirubin 0.3 mg/dL (0.15-1.2); Total Protein 6.4 g/dL (6.6-8.7)
[2023-11-25 10:47] LABS: Creatine Phosphokinase 705 U/L (39-308)
== END 2023-11-26 23:59 | disposition home or self-care (01) ==
LOC: LAB 07:17
PROVIDERS: PCP Family Medicine; Visit Provider Family Medicine
DX: E74.04 McArdle disease (principal); I10 Essential (primary) hypertension; M62.82 Rhabdomyolysis; Z79.899 Other long term (current) drug therapy
CPT/HCPCS: 36415; 80053; 82140; 82550; 85025

== ENCOUNTER 2023-11-25 08:00 | Oncology outpatient (recurring) (ONCR) | payer MEDICARE, MEDICAID, SELFPAY ==
[2023-10-29] MEDS: sodium chloride 0.9% 1,000 ML 999 ML IV (09:47)
[2023-10-29 11:10] VITALS: BP 131/85; PULSE 67; RESP 17; TEMP 36.2
[2023-11-25 08:13] VITALS: BP 112/77; PULSE 65; RESP 17; TEMP 36.7; O2SAT 98
[2023-11-25] MEDS: sodium chloride 0.9% 1,000 ML 999 ML IV (08:52)
[2023-11-25 10:02] VITALS: BP 148/86; PULSE 70; RESP 16; TEMP 36.7; O2SAT 98
== END 2023-11-26 23:59 | disposition home or self-care (01) ==
PROVIDERS: PCP Family Medicine; Visit Provider Family Medicine
DX: Z53.9 Procedure and treatment not carried out, unspecified reason (principal); N18.30 Chronic kidney disease, stage 3 unspecified
CPT/HCPCS: 96360; J7030

== ENCOUNTER 2023-12-01 07:22 | Outpatient (CLI) | payer MEDICARE, MEDICAID, SELFPAY ==
[2023-12-01 07:39] LABS: Basophils % 0.6 %; Eosinophils # 0.2 10^3/uL (0.0-0.8); Eosinophils % 3.2 %; Hematocrit 40.4 % (37-53); Lymphocytes # 1.2 10^3/uL (0.8-4.8); Lymphocytes % 24.4 %; Mean Corpuscular HGB Conc 30.7 g/dL (30-55); Mean Corpuscular Hemoglobin 24.2 pg (27-33); Mean Corpuscular Volume 78.9 fl (82-101); Mean Platelet Volume 9.2 fL (7.4-10.4); Monocytes # 0.5 10^3/uL (0.2-0.9); Monocytes % 9.9 %; Neutrophils # 3.05 10^3/uL (1.8-7.7); Neutrophils % 61.7 %; Nucleated Red Blood Cells % 0 %; Platelet Count 215 10^3/cmm (157-399); Red Blood Count 5.12 10^6/uL (3.85-5.65); White Blood Count 4.95 10^3/uL (3.29-11.43)
[2023-12-01 07:55] LABS: Alanine Aminotransferase 20 U/L (0-41); Albumin Level 4.2 g/dL (3.5-5.2); Alkaline Phosphatase 38 U/L (40-130); Anion Gap 12.1 (5-19); Aspartate Amino Transferase 21 U/L (0-40); Blood Urea Nitrogen 18 mg/dL (6-20); Calcium 9.3 mg/dL (8.5-10.5); Carbon Dioxide 27 mmol/L (22-29); Chloride 105 mmol/L (98-107); Creatine Phosphokinase 178 U/L (39-308); Globulin 1.9 g/dL (1.3-4.6); Glomerular Filtration Rate 35.5 mL/min (90-130); Glucose 111 mg/dL (65-115); Osmolality Calculated 293 mOsm/kg (285-295); Potassium 4.1 mmol/L (3.5-5.1); Sodium 140 mmol/L (136-145); Total Bilirubin 0.4 mg/dL (0.15-1.2); Total Protein 6.1 g/dL (6.6-8.7)
[2023-12-01 07:56] LABS: Ammonia 19 umol/L (16-60)
== END 2023-12-01 07:23 | disposition home or self-care (01) ==
LOC: LAB 07:25
PROVIDERS: PCP Family Medicine; Visit Provider Family Medicine
DX: M62.82 Rhabdomyolysis (principal); I10 Essential (primary) hypertension; E74.04 McArdle disease
CPT/HCPCS: 36415; 80053; 82140; 82550; 85025

== ENCOUNTER → 2023-12-05 08:34 | Outpatient (BNVA) | payer MEDICARE, MEDICAID, SELFPAY | PROVIDERS: PCP Family Medicine; Visit Provider Internal Medicine Cardiovascular Disease | DX: I13.0 Hypertensive heart and chronic kidney disease with heart failure and stage 1 through stage 4 chronic kidney disease, or unspecified chronic kidney disease (principal); I50.33 Acute on chronic diastolic (congestive) heart failure; N18.30 Chronic kidney disease, stage 3 unspecified; I25.10 Atherosclerotic heart disease of native coronary artery without angina pectoris; F31.9 Bipolar disorder, unspecified; G47.33 Obstructive sleep apnea (adult) (pediatric); Z87.891 Personal history of nicotine dependence | CPT/HCPCS: 99213 ==

== ENCOUNTER 2023-12-22 07:29 | Outpatient (RCR) | payer MEDICARE, MEDICAID, SELFPAY ==
[2023-12-08 08:35] LABS: Basophils # 0.1 10^3/uL (0.0-0.1); Eosinophils # 0.2 10^3/uL (0.0-0.8); Eosinophils % 3.2 %; Hematocrit 42.5 % (37-53); Lymphocytes # 1.3 10^3/uL (0.8-4.8); Lymphocytes % 22.5 %; Mean Corpuscular HGB Conc 30.4 g/dL (30-55); Mean Corpuscular Hemoglobin 23.8 pg (27-33); Mean Corpuscular Volume 78.6 fl (82-101); Mean Platelet Volume 9.1 fL (7.4-10.4); Monocytes # 0.6 10^3/uL (0.2-0.9); Monocytes % 10.2 %; Neutrophils # 3.74 10^3/uL (1.8-7.7); Neutrophils % 62.8 %; Nucleated Red Blood Cells % 0 %; Platelet Count 228 10^3/cmm (157-399); Red Blood Count 5.41 10^6/uL (3.85-5.65); Red Cell Distribution Width 16.6 % (12.1-15.1); White Blood Count 5.96 10^3/uL (3.29-11.43)
[2023-12-08 08:53] LABS: Ammonia 15 umol/L (16-60)
[2023-12-08 08:58] LABS: Alanine Aminotransferase 18 U/L (0-41); Albumin Level 4.2 g/dL (3.5-5.2); Alkaline Phosphatase 44 U/L (40-130); Anion Gap 9.8 (5-19); Aspartate Amino Transferase 17 U/L (0-40); Blood Urea Nitrogen 19 mg/dL (6-20); Calcium 8.8 mg/dL (8.5-10.5); Carbon Dioxide 28 mmol/L (22-29); Chloride 103 mmol/L (98-107); Creatine Phosphokinase 226 U/L (39-308); Globulin 2.2 g/dL (1.3-4.6); Glomerular Filtration Rate 31.8 mL/min (90-130); Glucose 86 mg/dL (65-115); Osmolality Calculated 286 mOsm/kg (285-295); Potassium 3.8 mmol/L (3.5-5.1); Sodium 137 mmol/L (136-145); Total Bilirubin 0.5 mg/dL (0.15-1.2); Total Protein 6.4 g/dL (6.6-8.7)
[2023-12-15 07:23] LABS: Basophils % 0.6 %; Eosinophils # 0.2 10^3/uL (0.0-0.8); Eosinophils % 2.9 %; Hematocrit 41.6 % (37-53); Lymphocytes # 1.1 10^3/uL (0.8-4.8); Lymphocytes % 17.1 %; Mean Corpuscular HGB Conc 29.6 g/dL (30-55); Mean Corpuscular Hemoglobin 23.3 pg (27-33); Mean Corpuscular Volume 78.6 fl (82-101); Mean Platelet Volume 9.7 fL (7.4-10.4); Monocytes # 0.6 10^3/uL (0.2-0.9); Monocytes % 9.9 %; Neutrophils # 4.32 10^3/uL (1.8-7.7); Neutrophils % 69.2 %; Nucleated Red Blood Cells % 0 %; Platelet Count 230 10^3/cmm (157-399); Red Blood Count 5.29 10^6/uL (3.85-5.65); Red Cell Distribution Width 16.6 % (12.1-15.1); White Blood Count 6.25 10^3/uL (3.29-11.43)
[2023-12-15 07:40] LABS: Ammonia 24 umol/L (16-60)
[2023-12-15 07:41] LABS: Alanine Aminotransferase 19 U/L (0-41); Albumin Level 4.2 g/dL (3.5-5.2); Alkaline Phosphatase 45 U/L (40-130); Anion Gap 13.1 (5-19); Aspartate Amino Transferase 22 U/L (0-40); Blood Urea Nitrogen 16 mg/dL (6-20); Carbon Dioxide 28 mmol/L (22-29); Chloride 101 mmol/L (98-107); Creatine Phosphokinase 262 U/L (39-308); Globulin 2.2 g/dL (1.3-4.6); Glomerular Filtration Rate 35.5 mL/min (90-130); Glucose 105 mg/dL (65-115); Osmolality Calculated 288 mOsm/kg (285-295); Potassium 4.1 mmol/L (3.5-5.1); Sodium 138 mmol/L (136-145); Total Bilirubin 0.3 mg/dL (0.15-1.2); Total Protein 6.4 g/dL (6.6-8.7)
[2023-12-22 07:53] LABS: Basophils # 0.1 10^3/uL (0.0-0.1); Eosinophils # 0.1 10^3/uL (0.0-0.8); Eosinophils % 1.6 %; Hematocrit 41.3 % (37-53); Lymphocytes % 18.5 %; Mean Corpuscular HGB Conc 29.8 g/dL (30-55); Mean Corpuscular Hemoglobin 23.2 pg (27-33); Mean Corpuscular Volume 77.9 fl (82-101); Mean Platelet Volume 9.1 fL (7.4-10.4); Monocytes # 0.5 10^3/uL (0.2-0.9); Monocytes % 9.1 %; Neutrophils # 3.57 10^3/uL (1.8-7.7); Neutrophils % 69.4 %; Nucleated Red Blood Cells % 0 %; Platelet Count 198 10^3/cmm (157-399); Red Cell Distribution Width 16.4 % (12.1-15.1); White Blood Count 5.14 10^3/uL (3.29-11.43)
[2023-12-22 08:11] LABS: Alanine Aminotransferase 19 U/L (0-41); Albumin Level 4.3 g/dL (3.5-5.2); Alkaline Phosphatase 42 U/L (40-130); Anion Gap 13.2 (5-19); Aspartate Amino Transferase 24 U/L (0-40); Blood Urea Nitrogen 18 mg/dL (6-20); Calcium 8.9 mg/dL (8.5-10.5); Carbon Dioxide 26 mmol/L (22-29); Chloride 102 mmol/L (98-107); Creatine Phosphokinase 286 U/L (39-308); Globulin 2.1 g/dL (1.3-4.6); Glomerular Filtration Rate 33.6 mL/min (90-130); Glucose 102 mg/dL (65-115); Osmolality Calculated 286 mOsm/kg (285-295); Potassium 4.2 mmol/L (3.5-5.1); Sodium 137 mmol/L (136-145); Total Bilirubin 0.3 mg/dL (0.15-1.2); Total Protein 6.4 g/dL (6.6-8.7)
[2023-12-22 08:12] LABS: Ammonia 18 umol/L (16-60)
== END 2023-12-25 23:59 | disposition home or self-care (01) ==
LOC: LAB 07:29
PROVIDERS: PCP Family Medicine; Visit Provider Family Medicine
DX: E74.04 McArdle disease (principal); I10 Essential (primary) hypertension; M62.82 Rhabdomyolysis
CPT/HCPCS: 36415; 80053; 82140; 82550; 85025

== ENCOUNTER 2024-01-19 06:33 | Outpatient (RCR) | payer MEDICARE, MEDICAID, SELFPAY ==
[2024-01-05 08:07] LABS: Basophils % 0.7 %; Eosinophils # 0.2 10^3/uL (0.0-0.8); Eosinophils % 2.6 %; Hematocrit 44.5 % (37-53); Lymphocytes # 1.1 10^3/uL (0.8-4.8); Lymphocytes % 18.4 %; Mean Corpuscular HGB Conc 29.7 g/dL (30-55); Mean Corpuscular Hemoglobin 22.6 pg (27-33); Mean Corpuscular Volume 76.2 fl (82-101); Mean Platelet Volume 9.8 fL (7.4-10.4); Monocytes # 0.5 10^3/uL (0.2-0.9); Monocytes % 7.8 %; Neutrophils # 4.31 10^3/uL (1.8-7.7); Neutrophils % 70.3 %; Nucleated Red Blood Cells % 0 %; Platelet Count 231 10^3/cmm (157-399); Red Blood Count 5.84 10^6/uL (3.85-5.65); Red Cell Distribution Width 16.7 % (12.1-15.1); White Blood Count 6.13 10^3/uL (3.29-11.43)
[2024-01-05 08:26] LABS: Ammonia 20 umol/L (16-60)
[2024-01-05 08:38] LABS: Alanine Aminotransferase 17 U/L (0-41); Albumin Level 4.5 g/dL (3.5-5.2); Alkaline Phosphatase 48 U/L (40-130); Anion Gap 14.3 (5-19); Aspartate Amino Transferase 20 U/L (0-40); Blood Urea Nitrogen 19 mg/dL (6-20); Calcium 9.1 mg/dL (8.5-10.5); Carbon Dioxide 25 mmol/L (22-29); Chloride 104 mmol/L (98-107); Creatine Phosphokinase 187 U/L (39-308); Globulin 2.2 g/dL (1.3-4.6); Glomerular Filtration Rate 31.8 mL/min (90-130); Glucose 114 mg/dL (65-115); Osmolality Calculated 291 mOsm/kg (285-295); Potassium 4.3 mmol/L (3.5-5.1); Sodium 139 mmol/L (136-145); Total Bilirubin 0.4 mg/dL (0.15-1.2); Total Protein 6.7 g/dL (6.6-8.7)
[2024-01-19 07:09] LABS: Basophils # 0.1 10^3/uL (0.0-0.1); Basophils % 1.2 %; Eosinophils # 0.2 10^3/uL (0.0-0.8); Eosinophils % 3.5 %; Hematocrit 43.9 % (37-53); Lymphocytes # 1.1 10^3/uL (0.8-4.8); Mean Corpuscular HGB Conc 29.4 g/dL (30-55); Mean Corpuscular Hemoglobin 22.1 pg (27-33); Mean Platelet Volume 9.5 fL (7.4-10.4); Monocytes # 0.5 10^3/uL (0.2-0.9); Monocytes % 9.7 %; Neutrophils # 3.32 10^3/uL (1.8-7.7); Neutrophils % 64.4 %; Nucleated Red Blood Cells % 0 %; Platelet Count 216 10^3/cmm (157-399); Red Blood Count 5.85 10^6/uL (3.85-5.65); White Blood Count 5.15 10^3/uL (3.29-11.43)
[2024-01-19 07:20] LABS: Ammonia 24 umol/L (16-60)
[2024-01-19 07:22] LABS: Alanine Aminotransferase 16 U/L (0-41); Albumin Level 4.4 g/dL (3.5-5.2); Alkaline Phosphatase 47 U/L (40-130); Anion Gap 14.2 (5-19); Aspartate Amino Transferase 18 U/L (0-40); Blood Urea Nitrogen 24 mg/dL (6-20); Calcium 9.2 mg/dL (8.5-10.5); Carbon Dioxide 24 mmol/L (22-29); Chloride 106 mmol/L (98-107); Creatine Phosphokinase 189 U/L (39-308); Globulin 2.2 g/dL (1.3-4.6); Glomerular Filtration Rate 31.8 mL/min (90-130); Glucose 98 mg/dL (65-115); Osmolality Calculated 294 mOsm/kg (285-295); Potassium 4.2 mmol/L (3.5-5.1); Sodium 140 mmol/L (136-145); Total Bilirubin 0.4 mg/dL (0.15-1.2); Total Protein 6.6 g/dL (6.6-8.7)
== END 2024-01-25 23:59 | disposition home or self-care (01) ==
LOC: LAB 06:33
PROVIDERS: PCP Family Medicine; Visit Provider Family Medicine
DX: E74.04 McArdle disease (principal); I10 Essential (primary) hypertension; M62.82 Rhabdomyolysis
CPT/HCPCS: 36415; 80053; 82140; 82550; 85025

== ENCOUNTER 2024-02-11 08:29 | Outpatient (CLI) | payer MEDICARE, MEDICAID, SELFPAY ==
[2024-02-11 09:30] LABS: Basophils % 0.6 %; Eosinophils # 0.1 10^3/uL (0.0-0.8); Eosinophils % 1.7 %; Hematocrit 44.5 % (37-53); Lymphocytes # 0.8 10^3/uL (0.8-4.8); Lymphocytes % 15.7 %; Mean Corpuscular HGB Conc 26.5 g/dL (30-55); Mean Corpuscular Hemoglobin 21.6 pg (27-33); Mean Corpuscular Volume 81.4 fl (82-101); Mean Platelet Volume 11.1 fL (7.4-10.4); Monocytes # 0.3 10^3/uL (0.2-0.9); Monocytes % 6.6 %; Neutrophils # 3.64 10^3/uL (1.8-7.7); Neutrophils % 75.2 %; Nucleated Red Blood Cells % 0 %; Platelet Count 98 10^3/cmm (157-399); Red Blood Count 5.47 10^6/uL (3.85-5.65); Red Cell Distribution Width 16.8 % (12.1-15.1); White Blood Count 4.84 10^3/uL (3.29-11.43)
[2024-02-11 09:55] LABS: Calcium 9.1 mg/dL (8.5-10.5)
[2024-02-11 09:57] LABS: Albumin Level 4.2 g/dL (3.5-5.2); Blood Urea Nitrogen 16 mg/dL (6-20); Calcium 9.1 mg/dL (8.5-10.5); Carbon Dioxide 18 mmol/L (22-29); Chloride 106 mmol/L (98-107); Glomerular Filtration Rate 33.6 mL/min (90-130); Glucose 105 mg/dL (65-115); Magnesium 2.2 mg/dL (1.7-2.3); Phosphorus 2.2 mg/dL (2.5-4.5); Sodium 136 mmol/L (136-145)
[2024-02-11 10:00] LABS: Anion Gap 16.1 (5-19); Potassium 4.1 mmol/L (3.5-5.1)
[2024-02-11 10:03] LABS: Parathyroid Hormone 36.2 pg/mL (15-65)
[2024-02-11 10:16] LABS: Creatinine Urine, Random 224 mg/dL (39-259); Microalbum Creatinine Ratio Ur 13 mg/dL (0-20); Microalbumin Random Urine 3 ug/dL (0-20)
[2024-02-11 10:38] LABS: 25 Hydroxy Vitamin D 49 ng/mL (30-100)
== END 2024-02-11 08:30 | disposition home or self-care (01) ==
LOC: LAB 08:30
PROVIDERS: PCP Family Medicine; Visit Provider Internal Medicine Nephrology
DX: N18.32 Chronic kidney disease, stage 3b (principal)
CPT/HCPCS: 36415; 80069; 82044; 82306; 82310; 83735; 83970; 85025

== ENCOUNTER 2024-02-23 06:40 | Outpatient (RCR) | payer MEDICARE, MEDICAID, SELFPAY ==
[2024-01-26 13:48] LABS: Basophils % 0.8 %; Eosinophils # 0.1 10^3/uL (0.0-0.8); Eosinophils % 2.4 %; Hematocrit 40.1 % (37-53); Lymphocytes # 1.3 10^3/uL (0.8-4.8); Lymphocytes % 25.1 %; Mean Corpuscular HGB Conc 29.7 g/dL (30-55); Mean Platelet Volume 10.1 fL (7.4-10.4); Monocytes # 0.5 10^3/uL (0.2-0.9); Neutrophils # 3.13 10^3/uL (1.8-7.7); Neutrophils % 62.5 %; Nucleated Red Blood Cells % 0 %; Platelet Count 206 10^3/cmm (157-399); Red Blood Count 5.42 10^6/uL (3.85-5.65); Red Cell Distribution Width 16.2 % (12.1-15.1); White Blood Count 5.01 10^3/uL (3.29-11.43)
[2024-01-26 14:08] LABS: Alanine Aminotransferase 17 U/L (0-41); Albumin Level 4.3 g/dL (3.5-5.2); Alkaline Phosphatase 52 U/L (40-130); Ammonia 25 umol/L (16-60); Anion Gap 12.8 (5-19); Aspartate Amino Transferase 24 U/L (0-40); Blood Urea Nitrogen 20 mg/dL (6-20); Calcium 9.1 mg/dL (8.5-10.5); Carbon Dioxide 25 mmol/L (22-29); Chloride 106 mmol/L (98-107); Creatine Phosphokinase 227 U/L (39-308); Globulin 2.1 g/dL (1.3-4.6); Glomerular Filtration Rate 33.6 mL/min (90-130); Glucose 84 mg/dL (65-115); Osmolality Calculated 292 mOsm/kg (285-295); Potassium 3.8 mmol/L (3.5-5.1); Sodium 140 mmol/L (136-145); Total Bilirubin 0.3 mg/dL (0.15-1.2); Total Protein 6.4 g/dL (6.6-8.7)
[2024-02-02 09:21] LABS: Basophils % 0.8 %; Eosinophils # 0.2 10^3/uL (0.0-0.8); Eosinophils % 3.2 %; Hematocrit 41.7 % (37-53); Lymphocytes # 1.1 10^3/uL (0.8-4.8); Lymphocytes % 19.8 %; Mean Corpuscular HGB Conc 29.5 g/dL (30-55); Mean Corpuscular Volume 74.7 fl (82-101); Mean Platelet Volume 9.6 fL (7.4-10.4); Monocytes # 0.5 10^3/uL (0.2-0.9); Monocytes % 8.5 %; Neutrophils # 3.57 10^3/uL (1.8-7.7); Neutrophils % 67.5 %; Nucleated Red Blood Cells % 0 %; Platelet Count 204 10^3/cmm (157-399); Red Blood Count 5.58 10^6/uL (3.85-5.65); Red Cell Distribution Width 16.7 % (12.1-15.1); White Blood Count 5.29 10^3/uL (3.29-11.43)
[2024-02-02 09:38] LABS: Alanine Aminotransferase 29 U/L (0-41); Albumin Level 4.3 g/dL (3.5-5.2); Alkaline Phosphatase 49 U/L (40-130); Ammonia 24 umol/L (16-60); Anion Gap 13.8 (5-19); Aspartate Amino Transferase 42 U/L (0-40); Blood Urea Nitrogen 14 mg/dL (6-20); Calcium 9.8 mg/dL (8.5-10.5); Carbon Dioxide 27 mmol/L (22-29); Chloride 103 mmol/L (98-107); Globulin 2.1 g/dL (1.3-4.6); Glomerular Filtration Rate 33.6 mL/min (90-130); Glucose 111 mg/dL (65-115); Osmolality Calculated 291 mOsm/kg (285-295); Potassium 3.8 mmol/L (3.5-5.1); Sodium 140 mmol/L (136-145); Total Bilirubin 0.3 mg/dL (0.15-1.2); Total Protein 6.4 g/dL (6.6-8.7)
[2024-02-03 10:51] LABS: Creatine Phosphokinase 693 U/L (39-308)
[2024-02-09 07:43] LABS: Basophils % 0.5 %; Eosinophils # 0.2 10^3/uL (0.0-0.8); Eosinophils % 3.1 %; Hematocrit 39.6 % (37-53); Lymphocytes # 1.2 10^3/uL (0.8-4.8); Lymphocytes % 20.4 %; Mean Corpuscular HGB Conc 27.5 g/dL (30-55); Mean Corpuscular Hemoglobin 21.3 pg (27-33); Mean Corpuscular Volume 77.3 fl (82-101); Mean Platelet Volume 9.8 fL (7.4-10.4); Monocytes # 0.5 10^3/uL (0.2-0.9); Monocytes % 8.6 %; Neutrophils # 3.89 10^3/uL (1.8-7.7); Neutrophils % 67.2 %; Nucleated Red Blood Cells % 0 %; Platelet Count 219 10^3/cmm (157-399); Red Blood Count 5.12 10^6/uL (3.85-5.65); Red Cell Distribution Width 16.6 % (12.1-15.1); White Blood Count 5.79 10^3/uL (3.29-11.43)
[2024-02-09 08:05] LABS: Alanine Aminotransferase 24 U/L (0-41); Albumin Level 3.8 g/dL (3.5-5.2); Alkaline Phosphatase 45 U/L (40-130); Anion Gap 15.5 (5-19); Aspartate Amino Transferase 24 U/L (0-40); Blood Urea Nitrogen 16 mg/dL (6-20); Calcium 8.6 mg/dL (8.5-10.5); Carbon Dioxide 20 mmol/L (22-29); Chloride 105 mmol/L (98-107); Creatine Phosphokinase 291 U/L (39-308); Globulin 2.1 g/dL (1.3-4.6); Glomerular Filtration Rate 35.5 mL/min (90-130); Glucose 101 mg/dL (65-115); Osmolality Calculated 285 mOsm/kg (285-295); Potassium 3.5 mmol/L (3.5-5.1); Sodium 137 mmol/L (136-145); Total Bilirubin 0.3 mg/dL (0.15-1.2); Total Protein 5.9 g/dL (6.6-8.7)
[2024-02-09 08:06] LABS: Ammonia 81 umol/L (16-60)
[2024-02-16 06:56] LABS: Basophils # 0.1 10^3/uL (0.0-0.1); Basophils % 0.9 %; Eosinophils # 0.2 10^3/uL (0.0-0.8); Eosinophils % 3.2 %; Hematocrit 40.5 % (37-53); Lymphocytes # 0.9 10^3/uL (0.8-4.8); Lymphocytes % 17.3 %; Mean Corpuscular HGB Conc 28.4 g/dL (30-55); Mean Corpuscular Volume 73.9 fl (82-101); Mean Platelet Volume 9.7 fL (7.4-10.4); Monocytes # 0.5 10^3/uL (0.2-0.9); Monocytes % 8.4 %; Neutrophils # 3.75 10^3/uL (1.8-7.7); Neutrophils % 69.8 %; Nucleated Red Blood Cells % 0 %; Platelet Count 212 10^3/cmm (157-399); Red Blood Count 5.48 10^6/uL (3.85-5.65); Red Cell Distribution Width 16.6 % (12.1-15.1); White Blood Count 5.37 10^3/uL (3.29-11.43)
[2024-02-16 07:07] LABS: Ammonia 29 umol/L (16-60)
[2024-02-16 07:09] LABS: Alanine Aminotransferase 18 U/L (0-41); Albumin Level 4.2 g/dL (3.5-5.2); Alkaline Phosphatase 50 U/L (40-130); Anion Gap 13.4 (5-19); Aspartate Amino Transferase 20 U/L (0-40); Blood Urea Nitrogen 19 mg/dL (6-20); Calcium 8.9 mg/dL (8.5-10.5); Carbon Dioxide 22 mmol/L (22-29); Chloride 106 mmol/L (98-107); Creatine Phosphokinase 243 U/L (39-308); Globulin 2.3 g/dL (1.3-4.6); Glomerular Filtration Rate 33.6 mL/min (90-130); Glucose 135 mg/dL (65-115); Osmolality Calculated 290 mOsm/kg (285-295); Potassium 3.4 mmol/L (3.5-5.1); Sodium 138 mmol/L (136-145); Total Bilirubin 0.3 mg/dL (0.15-1.2); Total Protein 6.5 g/dL (6.6-8.7)
[2024-02-23 06:58] LABS: Basophils # 0.1 10^3/uL (0.0-0.1); Basophils % 0.9 %; Eosinophils # 0.2 10^3/uL (0.0-0.8); Eosinophils % 3.1 %; Hematocrit 40.8 % (37-53); Lymphocytes # 1.3 10^3/uL (0.8-4.8); Mean Corpuscular HGB Conc 28.4 g/dL (30-55); Mean Corpuscular Hemoglobin 20.9 pg (27-33); Mean Corpuscular Volume 73.4 fl (82-101); Mean Platelet Volume 9.6 fL (7.4-10.4); Monocytes # 0.5 10^3/uL (0.2-0.9); Monocytes % 8.9 %; Neutrophils # 3.72 10^3/uL (1.8-7.7); Neutrophils % 64.8 %; Nucleated Red Blood Cells % 0 %; Platelet Count 191 10^3/cmm (157-399); Red Blood Count 5.56 10^6/uL (3.85-5.65); White Blood Count 5.74 10^3/uL (3.29-11.43)
[2024-02-23 07:14] LABS: Alanine Aminotransferase 16 U/L (0-41); Alkaline Phosphatase 43 U/L (40-130); Ammonia 41 umol/L (16-60); Anion Gap 12.7 (5-19); Aspartate Amino Transferase 19 U/L (0-40); Blood Urea Nitrogen 20 mg/dL (6-20); Calcium 8.8 mg/dL (8.5-10.5); Carbon Dioxide 22 mmol/L (22-29); Chloride 106 mmol/L (98-107); Creatine Phosphokinase 243 U/L (39-308); Globulin 2.1 g/dL (1.3-4.6); Glomerular Filtration Rate 31.8 mL/min (90-130); Glucose 98 mg/dL (65-115); Osmolality Calculated 287 mOsm/kg (285-295); Potassium 3.7 mmol/L (3.5-5.1); Sodium 137 mmol/L (136-145); Total Bilirubin 0.5 mg/dL (0.15-1.2); Total Protein 6.1 g/dL (6.6-8.7)
== END 2024-02-24 23:59 | disposition home or self-care (01) ==
LOC: LAB 06:40
PROVIDERS: PCP Family Medicine; Visit Provider Family Medicine
DX: E74.04 McArdle disease (principal); I10 Essential (primary) hypertension; M62.82 Rhabdomyolysis; Z79.899 Other long term (current) drug therapy
CPT/HCPCS: 36415; 80053; 82140; 82550; 85025

== ENCOUNTER → 2024-03-04 10:32 | Outpatient (BNVA) | payer MEDICARE, SELFPAY | PROVIDERS: PCP Family Medicine; Visit Provider Nurse Practitioner Family | DX: I11.0 Hypertensive heart disease with heart failure (principal); I50.33 Acute on chronic diastolic (congestive) heart failure; I25.10 Atherosclerotic heart disease of native coronary artery without angina pectoris; I10 Essential (primary) hypertension; I45.9 Conduction disorder, unspecified; Z87.891 Personal history of nicotine dependence | CPT/HCPCS: 93005; 99214 ==

== ENCOUNTER 2024-03-09 09:32 | Outpatient (CLI) | payer MEDICARE, SELFPAY ==
--- NOTE | 2024-03-09 10:00 | USCV_ITS ---
Levar Julian Age: 48 Gender: M : 1975 Exam Date: 03/09/2024 09:38 Ordering Phys: Juanita Urrutia Technologist: ONESIMO [place] [facility] [place]: Worsening CAMEJO and Chest Tightness BP: / HR: 55 Rhythm: Sinus Technical Quality: Adequate MEASUREMENTS (Male / Female) Normal Values 2D ECHO LV Diastolic Diameter PLAX 4.5 cm 4.2 - 5.9 / 3.9 - 5.3 cm LV Systolic Diameter PLAX 3.5 cm IVS Diastolic Thickness 1.2 cm 0.6 - 1.0 / 0.6 - 0.9 cm IVS Systolic Thickness 1.8 cm LVPW Diastolic Thickness 1.5 cm 0.6 - 1.0 / 0.6 - 0.9 cm LVPW Systolic Thickness 2.0 cm LVOT Diameter 2.0 cm LV Ejection Fraction 2D Teich 45.3 % LV Ejection Fraction MOD 2C 51.3 % LV Ejection Fraction 2C AL 50.3 % LA Diameter 2.7 cm RA Systolic Volume 4C AL 36.2 ml RA Systolic Volume 4C MOD 33.5 ml Aorta at Sinotubular Diameter 3.5 cm IVC Diameter 1.3 cm M-MODE LA Ao Ratio MM 0.9 MV E Point Septal Separation 1.2 cm AV Cusp Separation MM 2.4 cm DOPPLER AV Peak Velocity 144.0 cm/s LVOT Peak Velocity 95.0 cm/s AV Area Cont Eq vti 2.7 cm squared AV Area Cont Eq pk 2.2 cm squared MV Area PHT 2.6 cm squared Mitral E to A Ratio 0.9 TV Peak Velocity 142.5 cm/s TR Peak Velocity 140.0 cm/s TR Peak Gradient 7.8 mmHg TR Mean Velocity 96.0 cm/s TR Mean Gradient 4.2 mmHg TR Velocity Time Integral 34.7 cm TV Peak E Velocity 42.0 cm/s Right Atrial Pressure 3.0 mmHg Pulmonary Artery Systolic Pressu 10.8 mmHg PV Peak Velocity 63.3 cm/s FINDINGS Left Ventricle Left ventricle is normal in size. LV systolic function is normal with EF of 50 to 55%. No regional wall motion abnormalities are seen. Right Ventricle Normal in size and function Right Atrium Normal in size Left Atrium Normal in size Mitral Valve Structurally normal mitral valve. Mild mitral regurgitation. Aortic Valve Structurally normal aortic valve. Mild aortic regurgitation. No significant stenosis. Tricuspid Valve Mild tricuspid regurgitation. Pulmonary artery systolic pressure is normal. Pulmonic Valve Not well visualized Pericardium Normal Aorta Ascending aorta is dilated with diameter of 3.61cm IVC Appears to be normal CONCLUSIONS LV systolic function is normal with EF of 50-55% Mild mitral regurgitation Mild aortic regurgitation Mild tricuspid regurgitation Ascending aorta is dilated with diameter of 3.61cm Compared to prior echocardiogram from 2022, mild aortic regurgitation is seen. Casimiro Cerna MD (Electronically Signed) Final Date: 12 Mar 2024 11:08 S
== END 2024-03-09 09:33 | disposition home or self-care (01) ==
LOC: RAD 09:33
PROVIDERS: PCP Family Medicine; Visit Provider Nurse Practitioner Family
DX: I25.10 Atherosclerotic heart disease of native coronary artery without angina pectoris (principal); I50.33 Acute on chronic diastolic (congestive) heart failure; I08.3 Combined rheumatic disorders of mitral, aortic and tricuspid valves
CPT/HCPCS: 93306

== ENCOUNTER 2024-03-18 08:31 | Oncology outpatient (recurring) (ONCR) | payer MEDICARE, SELFPAY ==
[2024-03-18 08:50] VITALS: BP 113/75; PULSE 79; RESP 18; TEMP 36; O2SAT 97
[2024-03-18] MEDS: sodium chloride 0.9% 1,000 ML 750 ML IV (09:11)
[2024-03-18 10:44] VITALS: BP 120/76; PULSE 66; RESP 16; TEMP 36.8; O2SAT 97
== END 2024-03-26 23:59 | disposition home or self-care (01) ==
PROVIDERS: PCP Family Medicine; Visit Provider Family Medicine
DX: M62.82 Rhabdomyolysis (principal); E74.04 McArdle disease; Z79.899 Other long term (current) drug therapy
CPT/HCPCS: 96365; J7030

== ENCOUNTER 2024-03-23 07:24 | Outpatient (RCR) | payer MEDICARE, MEDICAID, SELFPAY ==
[2024-02-27 07:55] LABS: Basophils % 0.7 %; Eosinophils # 0.2 10^3/uL (0.0-0.8); Eosinophils % 3.4 %; Hematocrit 40.6 % (37-53); Lymphocytes # 1.1 10^3/uL (0.8-4.8); Lymphocytes % 19.1 %; Mean Corpuscular HGB Conc 28.3 g/dL (30-55); Mean Corpuscular Volume 74.1 fl (82-101); Mean Platelet Volume 9.5 fL (7.4-10.4); Monocytes # 0.5 10^3/uL (0.2-0.9); Neutrophils # 4.03 10^3/uL (1.8-7.7); Neutrophils % 68.6 %; Nucleated Red Blood Cells % 0 %; Platelet Count 183 10^3/cmm (157-399); Red Blood Count 5.48 10^6/uL (3.85-5.65); Red Cell Distribution Width 16.8 % (12.1-15.1); White Blood Count 5.87 10^3/uL (3.29-11.43)
[2024-02-27 08:15] LABS: Ammonia 36 umol/L (16-60)
[2024-02-27 08:16] LABS: Alanine Aminotransferase 18 U/L (0-41); Albumin Level 4.2 g/dL (3.5-5.2); Alkaline Phosphatase 44 U/L (40-130); Anion Gap 14.1 (5-19); Aspartate Amino Transferase 28 U/L (0-40); Blood Urea Nitrogen 20 mg/dL (6-20); Calcium 9.1 mg/dL (8.5-10.5); Carbon Dioxide 26 mmol/L (22-29); Chloride 104 mmol/L (98-107); Globulin 2.1 g/dL (1.3-4.6); Glomerular Filtration Rate 30.2 mL/min (90-130); Glucose 102 mg/dL (65-115); Osmolality Calculated 293 mOsm/kg (285-295); Potassium 4.1 mmol/L (3.5-5.1); Sodium 140 mmol/L (136-145); Total Bilirubin 0.5 mg/dL (0.15-1.2); Total Protein 6.3 g/dL (6.6-8.7)
[2024-02-27 10:46] LABS: Creatine Phosphokinase 663 U/L (39-308)
[2024-03-01 06:46] LABS: Basophils % 0.5 %; Eosinophils # 0.2 10^3/uL (0.0-0.8); Eosinophils % 2.9 %; Hematocrit 39.2 % (37-53); Lymphocytes # 1.2 10^3/uL (0.8-4.8); Mean Corpuscular HGB Conc 28.6 g/dL (30-55); Mean Corpuscular Hemoglobin 20.4 pg (27-33); Mean Corpuscular Volume 71.4 fl (82-101); Mean Platelet Volume 9.9 fL (7.4-10.4); Monocytes # 0.5 10^3/uL (0.2-0.9); Monocytes % 8.8 %; Neutrophils % 67.6 %; Nucleated Red Blood Cells % 0 %; Platelet Count 208 10^3/cmm (157-399); Red Blood Count 5.49 10^6/uL (3.85-5.65); Red Cell Distribution Width 16.7 % (12.1-15.1); White Blood Count 5.91 10^3/uL (3.29-11.43)
[2024-03-01 07:10] LABS: Alanine Aminotransferase 21 U/L (0-41); Albumin Level 4.2 g/dL (3.5-5.2); Alkaline Phosphatase 51 U/L (40-130); Anion Gap 12.6 (5-19); Aspartate Amino Transferase 26 U/L (0-40); Blood Urea Nitrogen 15 mg/dL (6-20); Calcium 8.6 mg/dL (8.5-10.5); Carbon Dioxide 27 mmol/L (22-29); Chloride 102 mmol/L (98-107); Creatine Phosphokinase 316 U/L (39-308); Globulin 2.2 g/dL (1.3-4.6); Glomerular Filtration Rate 31.8 mL/min (90-130); Glucose 106 mg/dL (65-115); Osmolality Calculated 287 mOsm/kg (285-295); Potassium 3.6 mmol/L (3.5-5.1); Sodium 138 mmol/L (136-145); Total Bilirubin 0.3 mg/dL (0.15-1.2); Total Protein 6.4 g/dL (6.6-8.7)
[2024-03-01 08:01] LABS: Ammonia 38 umol/L (16-60)
[2024-03-04 11:14] LABS: NT Pro B Type Natriuretic Pept 95 pg/mL (0-125)
[2024-03-08 07:48] LABS: Basophils % 0.6 %; Eosinophils # 0.2 10^3/uL (0.0-0.8); Eosinophils % 3.1 %; Hematocrit 41.5 % (37-53); Lymphocytes # 1.1 10^3/uL (0.8-4.8); Lymphocytes % 21.6 %; Mean Corpuscular Volume 71.7 fl (82-101); Mean Platelet Volume 9.7 fL (7.4-10.4); Monocytes # 0.5 10^3/uL (0.2-0.9); Monocytes % 9.6 %; Neutrophils # 3.29 10^3/uL (1.8-7.7); Neutrophils % 64.7 %; Nucleated Red Blood Cells % 0 %; Platelet Count 253 10^3/cmm (157-399); Red Blood Count 5.79 10^6/uL (3.85-5.65); Red Cell Distribution Width 17.3 % (12.1-15.1); White Blood Count 5.09 10^3/uL (3.29-11.43)
[2024-03-08 08:01] LABS: Alanine Aminotransferase 20 U/L (0-41); Alkaline Phosphatase 46 U/L (40-130); Anion Gap 13.3 (5-19); Aspartate Amino Transferase 24 U/L (0-40); Blood Urea Nitrogen 18 mg/dL (6-20); Carbon Dioxide 23 mmol/L (22-29); Chloride 106 mmol/L (98-107); Globulin 2.2 g/dL (1.3-4.6); Glomerular Filtration Rate 31.8 mL/min (90-130); Glucose 102 mg/dL (65-115); Osmolality Calculated 288 mOsm/kg (285-295); Potassium 4.3 mmol/L (3.5-5.1); Sodium 138 mmol/L (136-145); Total Bilirubin 0.3 mg/dL (0.15-1.2); Total Protein 6.2 g/dL (6.6-8.7)
[2024-03-08 08:02] LABS: Ammonia 32 umol/L (16-60)
[2024-03-08 12:20] LABS: Creatine Phosphokinase 400 U/L (39-308)
[2024-03-15 06:59] LABS: Basophils # 0.1 10^3/uL (0.0-0.1); Basophils % 0.8 %; Eosinophils # 0.1 10^3/uL (0.0-0.8); Eosinophils % 2.4 %; Hematocrit 44.6 % (37-53); Lymphocytes # 1.5 10^3/uL (0.8-4.8); Lymphocytes % 24.7 %; Mean Corpuscular Hemoglobin 20.1 pg (27-33); Mean Corpuscular Volume 71.6 fl (82-101); Mean Platelet Volume 9.6 fL (7.4-10.4); Monocytes # 0.6 10^3/uL (0.2-0.9); Monocytes % 9.8 %; Neutrophils # 3.66 10^3/uL (1.8-7.7); Neutrophils % 62.1 %; Nucleated Red Blood Cells % 0 %; Platelet Count 229 10^3/cmm (157-399); Red Blood Count 6.23 10^6/uL (3.85-5.65); Red Cell Distribution Width 18.3 % (12.1-15.1)
[2024-03-15 07:12] LABS: Ammonia 20 umol/L (16-60)
[2024-03-15 07:21] LABS: Alanine Aminotransferase 27 U/L (0-41); Albumin Level 4.7 g/dL (3.5-5.2); Alkaline Phosphatase 50 U/L (40-130); Anion Gap 17.3 (5-19); Aspartate Amino Transferase 36 U/L (0-40); Blood Urea Nitrogen 33 mg/dL (6-20); Carbon Dioxide 24 mmol/L (22-29); Chloride 104 mmol/L (98-107); Globulin 2.5 g/dL (1.3-4.6); Glomerular Filtration Rate 30.2 mL/min (90-130); Glucose 97 mg/dL (65-115); Osmolality Calculated 299 mOsm/kg (285-295); Potassium 4.3 mmol/L (3.5-5.1); Sodium 141 mmol/L (136-145); Total Bilirubin 0.6 mg/dL (0.15-1.2); Total Protein 7.2 g/dL (6.6-8.7)
[2024-03-15 12:54] LABS: Creatine Phosphokinase 620 U/L (39-308)
[2024-03-23 07:53] LABS: Basophils # 0.1 10^3/uL (0.0-0.1); Eosinophils # 0.1 10^3/uL (0.0-0.8); Eosinophils % 2.3 %; Hematocrit 41.2 % (37-53); Lymphocytes # 1.2 10^3/uL (0.8-4.8); Lymphocytes % 23.3 %; Mean Corpuscular HGB Conc 28.4 g/dL (30-55); Mean Corpuscular Hemoglobin 20.1 pg (27-33); Mean Corpuscular Volume 70.9 fl (82-101); Monocytes # 0.4 10^3/uL (0.2-0.9); Monocytes % 8.5 %; Neutrophils # 3.33 10^3/uL (1.8-7.7); Neutrophils % 64.7 %; Nucleated Red Blood Cells % 0 %; Platelet Count 227 10^3/cmm (157-399); Red Blood Count 5.81 10^6/uL (3.85-5.65); Red Cell Distribution Width 18.5 % (12.1-15.1); White Blood Count 5.15 10^3/uL (3.29-11.43)
[2024-03-23 08:08] LABS: Alanine Aminotransferase 18 U/L (0-41); Albumin Level 4.3 g/dL (3.5-5.2); Alkaline Phosphatase 47 U/L (40-130); Ammonia 31 umol/L (16-60); Anion Gap 14.1 (5-19); Aspartate Amino Transferase 20 U/L (0-40); Blood Urea Nitrogen 20 mg/dL (6-20); Calcium 9.3 mg/dL (8.5-10.5); Carbon Dioxide 25 mmol/L (22-29); Chloride 106 mmol/L (98-107); Creatine Phosphokinase 196 U/L (39-308); Globulin 2.2 g/dL (1.3-4.6); Glomerular Filtration Rate 30.2 mL/min (90-130); Glucose 99 mg/dL (65-115); Osmolality Calculated 295 mOsm/kg (285-295); Potassium 4.1 mmol/L (3.5-5.1); Sodium 141 mmol/L (136-145); Total Bilirubin 0.4 mg/dL (0.15-1.2); Total Protein 6.5 g/dL (6.6-8.7)
== END 2024-03-26 23:59 | disposition home or self-care (01) ==
LOC: LAB 07:24
PROVIDERS: Nurse Practitioner Family; PCP Family Medicine; Visit Provider Family Medicine
DX: E74.04 McArdle disease (principal); I10 Essential (primary) hypertension; M62.82 Rhabdomyolysis
CPT/HCPCS: 36415; 80053; 82140; 82550; 83880; 85025

== ENCOUNTER 2024-03-29 09:34 | Outpatient (CLI) | payer MEDICARE, SELFPAY ==
--- NOTE | 2024-03-29 | ECG_ITS ---
[facility] Test Date: 2024-03-29 Pat Name: Julian Cristobal Department: Room: Gender: Male Museum Technician: : 1975 Requested By: Juanita Urrutia Order Number: [id number] Ilene MD: Bhupinder Vargas M.D. Interpretive Statements NAME OF STUDY: EXERCISE SESTAMIBI STRESS TEST INDICATION: CP/SOB, PROCEDURE: The baseline electrocardiogram showed normal sinus rhythm with normal ST-Ts possible left atrial enlargement. At the baseline, the patient's blood pressure was 141/89 mm Hg with a heart rate of 83. The patient exercised for 8 minutes and 29 seconds on a standard Thom protocol. Patient attained a maximum heart rate of 173 beats per minute(101% of the maximum predicted heart rate) with a blood pressure at the peak exercise of 191/78 mm Hg. The EKG at the peak exercise revealed nonspecific ST-T changes. Patient did not have any chest pain or any significant arrhythmis with the exercise Sestamibi was injected 1 minute prior to the peak exercise During the recovery phase, there were no new changes. Blood pressure at the end of the recovery phase was 141/59 mm Hg with a heart rate of a 98 per minute. CONCLUSION: 1. Nonspecific EKG changes with the treadmill exercise 2. No exercise-induced chest pain or cardiac arrhythmia 3. Fair exercise tolerance, attained a maximum of 10.2 METs 4. Sestamibi/Sestamibi perfusion results pending; see separate report. Electronically Signed On 04-01-2024 9:42:46 CDT by Bhupinder Vargas M.D. [id number]
[2024-03-29 09:49] VITALS: BMI 26.2
--- NOTE | 2024-03-29 09:54 | NMCV_ITS ---
NM fabiana perf SPECT r/s* [id number] Jluian Cristobal Age: 48 Gender: M : 1975 Exam Date: 03/29/2024 10:19 Ordering Phys: Juanita Urrutia Technologist: DOROTEO Ortega Exam Location: [facility] Indications: HYPERTENSION STRESS TEST Please see separate stress test report in [facility] for full findings IMAGE PROTOCOL Rest/Stress 1 Radiopharmaceutical Dose (mCi) Administration Site Administered by Rest: Tc-99m 10.4 IV DOROTEO Elizondo Sestamibi Stress:Tc-99m 32.3 IV DOROTEO Elizondo Sestamibi Rest: 29-Mar-2024 60 Discovery 630 Stress: 29-Mar-2024 15 Discovery 630 Radiopharmaceutical was injected at 85 % maximum heart rate. Images obtained in supine and prone position. SPECT RESULTS Technical Quality: Excellent Raw Data Analysis: Normal Image Corrections: No attenuation or motion correction applied Summed Stress Score: 9 Summed Rest Score: 11 Summed Difference Score: 1 PERFUSION FINDINGS Moderate area of moderately decreased aseptic involving the basal, mid and apical inferior, apical septal, mid anteroseptal and LV apex. Subtle area reversibility was noted in the mid anteroseptal region. FUNCTIONAL RESULTS (calculated via Gated SPECT) Stress Image LV EF (%): 55 Stress EDV (mL):125 TID: 0.81 Stress ESV (mL):56 FUNCTIONAL FINDINGS: Segmental wall motion analysis revealing no gross wall motion normalities IMPRESSIONS 1. Myocardial perfusion imaging revealing moderate area of moderate persistently decreased tracer uptake involving the inferior, apical and anteroseptal regions with a subtle area reversibility, suggesting myocardial scarring in the distribution of the right coronary artery/left anterior descending artery with a subtle area of possible preinfarction ischemia. 2. Normal LV ejection fraction of 55%. 3. LV wall motion analysis revealing no gross wall motion abnormalities. 4. Mildly dilated LV cavity with end-systolic volume of 56 mL Compared to the previous study from 05/29/2023, the ischemic burden is less and the area of ischemia appears to be at a different location Dr Bhupinder Vargas MD FAC (Electronically Signed) Final Date: 29 March 2024 15:19 S
[2024-03-29 11:19] VITALS: BP 147/57; PULSE 97
== END 2024-03-29 09:35 | disposition home or self-care (01) ==
PROVIDERS: PCP Family Medicine; Visit Provider Nurse Practitioner Family
DX: I10 Essential (primary) hypertension (principal); I25.10 Atherosclerotic heart disease of native coronary artery without angina pectoris; R94.39 Abnormal result of other cardiovascular function study
CPT/HCPCS: 36415; 78452; 93017; 96374; A9500

== ENCOUNTER 2024-04-06 16:45 | Outpatient (CLI) | payer MEDICARE, SELFPAY ==
[2024-04-06] VITALS (18 sets, daily range): BP systolic 125–127; BP diastolic 72–76; PULSE 65–110; RESP 7–23; TEMP 36.6–36.7; O2SAT 95–99
--- NOTE | 2024-04-06 17:44 | P.HP_ITS ---
Providers/Chief Complaint 2 Admitting Physician: Casimiro Cerna M.D Primary Care Provider: Hina Zaragoza DO Chief Complaint: 112-1 Pre IV hydration for cath History of Present Illness Julian Cristobal is a 48 year old male with past medical history of CAD, CKD, obstructive sleep apnea who has been having chest pressure symptoms that are worsening. Stress test showed mostly prior infarct but some austin-infarct ischemia. However given worsening of symptoms, plan for pulmonary angiogram. He has been admitted for hydration as creatinine is 2.2. Review of Systems 2 Const: Reports: fatigue (with SOB); Denies: fever(s) or chills Eyes: Denies: change in vision ENMT: Denies: bleeding gums or epistaxis Card: Reports: chest pain, palpitations, edema, swelling of feet/ankles, lightheadedness, dyspnea on exertion and orthopnea; Denies: irregular heart rhythm, syncope or pre-syncope Resp: Reports: dyspnea, productive cough and non-productive cough; Denies: hemoptysis GI: Denies: hematochezia : Denies: hematuria Musc: Reports: back pain and extremity swelling; Denies: neck pain Neuro: Reports: dizziness; Denies: headache(s), numbness in extremities or weakness in extremities Psych: Denies: anxiety, depression, suicidal ideation or homicidal ideation Endo: Denies: tired all the time Micky/Lymph: Denies: easy bruising or easy bleeding All/Imm: Reports: seasonal rhinorrhea Medications/Allergies Home Medications Medication Instructions Recorded Confirmed Last Taken Type cholecalciferol (vitamin D3) 25 1,000 unit PO DAILY 10/29/19 04/06/24 04/05/24 History mcg (1,000 unit) capsule trazodone 150 mg tablet 150 mg PO .HS #30 tabs 12/01/20 04/06/24 04/05/24 Rx 150 amlodipine 10 mg tablet (Norvasc) 10 mg PO DAILY #90 tabs 11/14/21 04/06/24 04/05/24 Rx 10 metoprolol succinate 25 mg 25 mg PO BID #180 tabs 12/04/22 04/06/24 04/06/24 Rx tablet,extended release 24 hr 1800 evolocumab 140 mg/mL subcutaneous 140 mg SUBCUT ONCE 01/13/23 04/06/24 04/05/24 History syringe (Repatha Syringe) aspirin 325 mg tablet 81 mg PO DAILY 05/01/23 04/06/24 04/05/24 History 325 furosemide 20 mg tablet (Lasix) 20 mg PO BID Edema 05/01/23 04/06/24 07/29/23 History potassium chloride 20 mEq 20 meq PO DAILY Dehydration 05/01/23 04/06/24 07/29/23 History tablet,extended release isosorbide mononitrate 30 mg 30 mg PO DAILY #90 tabs 01/05/24 04/06/24 04/05/24 Rx tablet,extended release 24 hr prasugrel 10 mg tablet 10 mg PO DAILY #90 tabs 03/04/24 04/06/24 Unknown Rx Allergies Allergy/AdvReac Type Severity Reaction Status Date / Time droperidol [From Inapsine] Allergy Severe Unknown Verified 03/04/24 10:04 zolpidem [From Ambien] Allergy Severe Amnesia Verified 03/04/24 10:04 tramadol [From Ultram] AdvReac Severe Severe Verified 03/04/24 10:04 anxiety tuberculin, purified protein AdvReac Intermediate ALGY-Rash Verified 03/04/24 10:04 deriva PFSH Acute 2 PFSH: Medical History CKD (chronic kidney disease) stage 3, GFR 30-59 ml/min Vitamin D deficiency, unspecified Acute depression Arteriosclerotic heart disease GERD (gastroesophageal reflux disease) Chronic rhinitis Obstructive sleep apnea Essential (primary) hypertension Common migraine without intractability Metabolic encephalopathy Insomnia, unspecified Tremor, unspecified Anxiety Venous insufficiency (chronic) (peripheral) Closed displaced fracture of distal phalanx of toe of left foot Chronic kidney disease, unspecified Bay disease Acute on chronic renal insufficiency Acute non-recurrent pansinusitis alf (current) use of opiate analgesic Edema, unspecified Shortness of breath Surgical History H/O angioplasty H/O arthroscopic knee surgery Hx of tonsillectomy H/O heart surgery S/P hemodialysis catheter insertion Family History Mother , AT AGE 55 Hypertension Diabetes [place] disease Father , AT AGE 55 Alcoholism Social History Smoking and tobacco/nicotine status: former use of tobacco/nicotine Quit status (tobacco/nicotine): has quit using Year quit tobacco: Jul 2022 Alcohol intake: current Alcohol intake frequency: holidays/special occasions only Substance/Drug Use: never Marital status: Current occupational status: disabled Do you think of yourself as: Straight/Heterosexual Physical Exam 2 Narrative: GENERAL: Patient is alert, awake and oriented x3. [] NECK: No jugular vein distension. [] HEENT: No cyanosis. No icterus. No pallor. [] HEART: Regular S1 and S2. No murmur, rub or gallop. [] LUNGS: Clear to auscultate bilaterally. [] CENTRAL NERVOUS SYSTEM: Grossly nonfocal. [] EXTREMITIES: Lower extremities with 1+ edema bilaterally. Data 04/07/24 03:40 04/07/24 03:40 A&P Assessment and plan (1) Abnormal stress test: (2) Worsening angina: (3) Essential (primary) hypertension: (4) Arteriosclerotic heart disease: (5) Chronic renal insufficiency, stage III (moderate): Qualifiers: Chronic kidney disease stage 3 subtype: unspecified whether 3a or 3b Qualified Code(s): N18.30 - Chronic kidney disease, stage 3 unspecified Plan Will start IV hydration with normal saline at 75 cc an hour till tomorrow morning. Will check labs in the morning. Continue aspirin and Effient. N.p.o. past midnight for coronary angiogram in the a.m. Attestations 2 Medical Necessity Statement*: Care not expected to cross 2 midnights. Coding Level of Care Code Acute Code for [facility] Fwd Diagnoses Abnormal stress test R94.39 Worsening angina I20.0 Essential (primary) hypertension I10 Arteriosclerotic heart disease I25.10 Chronic renal insufficiency, stage III (moderate) N18.30 Chronic kidney disease stage 3 subtype: unspecified whether 3a or 3b
[2024-04-06] MEDS: sodium chloride 0.9% 1,000 ML 75 ML IV (18:25)
[2024-04-06] MEDS: metoprolol succinate ER (24 HR) 25 mg Tablet PO (18:33)
[2024-04-06] MEDS: trazodone 150 mg Tablet PO (21:34)
[2024-04-07] VITALS (54 sets, daily range): BP systolic 124–145; BP diastolic 74–97; PULSE 50–93; RESP 13–94; TEMP 36.4–36.6; O2SAT 96–100
[2024-04-07 03:54] LABS: Basophils % 0.6 %; Eosinophils # 0.1 10^3/uL (0.0-0.8); Eosinophils % 2.3 %; Hematocrit 42.9 % (37-53); Lymphocytes # 1.2 10^3/uL (0.8-4.8); Lymphocytes % 23.4 %; Mean Corpuscular Hemoglobin 19.9 pg (27-33); Mean Corpuscular Volume 73.7 fl (82-101); Mean Platelet Volume 9.8 fL (7.4-10.4); Monocytes # 0.5 10^3/uL (0.2-0.9); Monocytes % 8.9 %; Neutrophils # 3.34 10^3/uL (1.8-7.7); Neutrophils % 64.6 %; Nucleated Red Blood Cells % 0 %; Platelet Count 205 10^3/cmm (157-399); Red Blood Count 5.82 10^6/uL (3.85-5.65); Red Cell Distribution Width 19.2 % (12.1-15.1); White Blood Count 5.17 10^3/uL (3.29-11.43)
[2024-04-07 04:14] LABS: Anion Gap 13.4 (5-19); Blood Urea Nitrogen 14 mg/dL (6-20); Calcium 8.7 mg/dL (8.5-10.5); Carbon Dioxide 22 mmol/L (22-29); Chloride 107 mmol/L (98-107); Glomerular Filtration Rate 35.5 mL/min (90-130); Glucose 91 mg/dL (65-115); Osmolality Calculated 288 mOsm/kg (285-295); Potassium 3.4 mmol/L (3.5-5.1); Sodium 139 mmol/L (136-145)
--- NOTE | 2024-04-07 06:05 | XACV_ITS ---
Exam Room: [facility] Ht: 185 cm Wt: 96 kg BSA: 2.24 m2 Gender: Male : 1975 Any Known Allergies: Other Exam Priority: Routine Procedure(s): Procedure Description: Diagnostic procedure Procedure Description: Left Heart Catheterization Procedure Description: Coronary Angiography Diagnostic Cath Status: Elective Diagnostic Findings * INDICATION: 48 year old male with past medical history of CAD, CKD, obstructive sleep apnea who has been having chest pressure symptoms that are worsening. Stress test showed mostly prior infarct but some [place]in-infarct ischemia. However given worsening of symptoms, plan for coronary angiogram. He was admitted for prehydration and has been on IV fluids. * Left Main has no significant disease. * Left Anterior Descending has patent prior proximal to mid vessel stent. * Circumflex has no significant disease. * Proximal Right Coronary Artery: chronic total occlusion, ALEXA: 0 flow. Left to right collaterals seen. * Coronary angiography shows right dominance. Conclusions 1. Patent prior LAD stent. PSYCHIATRY RESIDENT of RCA. Medical therapy. Recommendations * Aggressive risk factor modification. * Outpatient cardiology follow up in 4 weeks. Interventional RX Recommendation: medical therapy and/or counseling Diagnostic RX Recommendation: medical therapy and/or counseling Anticoagulation: Heparin Pressures Phase:Rest AO : 104 / 78 ( 91 ) @ 8:20:00 AM 128 / 78 ( 101 ) @ 8:27:00 AM 132 / 80 ( 104 ) @ 8:27:00 AM LV : 128 / 0 / 18 @ 8:27:00 AM 126 / 0 / 17 @ 8:27:00 AM Valves Phase:DefaultPhase AV : 0.0 @ 8:19:37 AM 0.0 @ 8:19:37 AM AV Mean Gradient: 0.0 @ 8:19:37 AM 0.0 @ 8:19:37 AM Clinical Evaluation EBL: 5mL-10mL Procedural Details Pre-Procedure Time Out. Identified patient by full name and date of as verbalized by the patient/guarantor. Does the consent match the physician's order: Yes. Accurate & Complete Informed Consent: Yes. Inpatient/Outpatient History & Physical on Chart: Yes. If H&P is completed, is and addenduem needed: No; If yes, is the addendum complete: N/A. Visualize and Verify Site with Patient/Guarantor: N/A. Relevant Radiology Images available: Yes. Pre-op teaching completed and patient verbalized understanding. The risks, benefits, and alternatives of sedation and/or procedure were discussed by physician. The patient agrees to continue. Procedure started. [facility] Clinical Fraility Score: 3: Managing Well. Paratransit Driver Indications: Suspected CAD. Chest Pain Symptom Assessment: Typical Angina Symptoms. Correct patient, site and procedure confirmed by cath team. Current diagnosis: Chest Pain. PERRLA. Strong, equal hand title clerk automobile bilaterally. Lungs clear x 5 lobes. Current Diagnosis : Chest Pain. IV Site on Arrival: 18 gauge in the right anticubital. IV Fluids: 0.9% NaCl at KVO. 0 mL infused prior to catheterization laboratory technician. Oxygen started at 2liters/min via nasal canula. right groin was prepped with chloroprep then draped in the usual sterile fashion. right radial was prepped with chloroprep then draped in the usual sterile fashion. Physician notified. Baseline sample Acquired. HR: 62 BPM. Physician arrived. Physician scrubbed in. Immediate Pre-Procedure Time Out. Correct Patient: Yes; Correct Procedure: Yes; Correct Site: Yes; Correct Patient Position: Yes; Correct Supplies: Yes; Dried Flammable Prep: Yes; Blood Products Available: N/A;. Lidocaine 1% infiltrated to the right radial. Arterial access obtained. A 5 pitcairn islander TIG catheter in over wire. Multiple views taken of left coronary artery. Catheter redirected to the RCA. A view taken of right coronary artery. Catheter removed over the exchange wire. A 5 pitcairn islander Angled Pig catheter in over wire. EDP Sample taken: LV 128/-1,18; HR: 66 BPM; SpO2: 99%. Pullback taken: LV 126/-1,17; AO 128/78(101); Mean: 0mmHg, Peak to Peak: 0mmHg, SEP: 6sec/min; HR: 68 BPM; SpO2: 100%. Catheter removed over the exchange wire. A TR Band was successful obtaining hemostatsis at the Right Radial artery insertion site. Post Procedure: Pulses reassessed and unchanged. PERRLA. Strong, equal hand title clerk automobile bilaterally. No VTE prophylaxis required. Medication's Wasted: Lidocaine 1% = 18 mL. Medication's Wasted: Nitro = 49.8 mg. Medication's Wasted: Heparin = 1000 units. Total IV fluids: 30 mL. Complications: None. Estimated blood loss: 5mL-10mL. Responsiveness - Normal response to verbal stimuli; alert and oriented, PERRLA. Airway - Unaffected, no intervention required; spontaneous ventilation. Circulation: W/N/L, pulses unchanged. Nausea/Vomiting: No. Procedure completed. Patient transferred by wheelchair to CPRU. Vital chart was stopped. Access Site Site: Right Radial artery Sheath Size: 6 Fr Hemostasis Method: TR Band Hemostasis Success: Successful Procedure Medications Start: 6:58 AM Stop: 6:58 AM Medication: Fentanyl Amount: 50 mcg Route: I.V. Start: 7:10 AM Stop: 7:10 AM Medication: Fentanyl Amount: 50 mcg Route: I.V. Start: 7:16 AM Stop: 7:16 AM Medication: Nitrogylcerin Amount: 200 mcg Route: I.A. Start: 7:18 AM Stop: 7:18 AM Medication: Heparin Amount: 5000 units Route: I.V. Start: 7:19 AM Stop: 7:19 AM Medication: Fentanyl Amount: 50 mcg Route: I.V. Start: 7:25 AM Stop: 7:25 AM Medication: Fentanyl Amount: 50 mcg Route: I.V. Start: 7:18 AM Stop: 7:18 AM Medication: Heparin Amount: 5000 units Route: I.V. I, the attending physician, have reviewed and verified all procedure medications. Yes, all medications given per verbal order Report Signatures Finalized by Casimiro Cerna MD on 04/11/2024 02:57 PM
--- NOTE | 2024-04-07 06:17 | PC.NURSE ---
Spoke to Dr. Cerna about what medication he would like given before cath procedure this morning. Told to give daily dose of Aspirin 81mg PO, Benadry 25mg PO and Effient 10mg PO.
[2024-04-07] MEDS: aspirin 81 mg Chew Tablet PO (06:23)
[2024-04-07] MEDS: diphenhydrAMINE 25 mg Capsule PO (06:23)
[2024-04-07] MEDS: prasugrel 10 MG Tablet PO (06:29)
--- NOTE | 2024-04-07 07:10 | W.PM.OPSUD ---
Surgery/Procedure H&P Update DATE OF PROCEDURE: April 07, 2024 DATE H&P PERFORMED: 04/06/24 H&P UPDATE INFORMATION: I have reviewed H&P completed within last 30 days, I have examined patient prior to procedure and No changes to prior documentation PREOP DIAGNOSIS: Worsening angina/abnormal stress test PRIMARY INDICATION FOR PROCEDURE: Worsening angina/abnormal stress test PLANNED PROCEDURE: Worsening angina/abnormal stress test PATIENT REASSESSED PRIOR TO SEDATION, WITH NO CHANGE NOTED: Yes PHYSICAL EXAM: alert, oriented x 3, clear to auscultation bilaterally and regular rate & rhythm AIRWAY EVAL/ANESTHESIA PLAN: normal airway, ASA III, Local Anesthesia, Risks, benefits & alternatives of sedation and/or procedure discussed and Patient agrees to continue as planned
--- NOTE | 2024-04-07 16:52 | PM.DCS ---
Discharge Providers Date of Admission: 04/06/24 17:45 Date of Discharge: April 07, 2024 Attending Provider at Admission: Casimiro Cerna M.D Attending Provider at Discharge: Casimiro Cerna M.D Primary Care Provider: Hina Zaragoza DO Diagnoses at Discharge Discharge Diagnosis (1) Abnormal stress test: Status: Acute (2) Worsening angina: Status: Resolved (3) Essential (primary) hypertension: Status: Acute (4) Arteriosclerotic heart disease: Status: Acute (5) Chronic renal insufficiency, stage III (moderate): Status: Acute Qualifiers: Chronic kidney disease stage 3 subtype: unspecified whether 3a or 3b Qualified Code(s): N18.30 - Chronic kidney disease, stage 3 unspecified Reason for Visit Reason for Visit: 112-1 Pre IV hydration for cath Brief History: Julian Cristobal is a 48 year old male with past medical history of CAD, CKD, obstructive sleep apnea who has been having chest pressure symptoms that are worsening. Stress test showed mostly prior infarct but some austin-infarct ischemia. However given worsening of symptoms, plan for coronary angiogram. He has been admitted for hydration as creatinine is 2.2. Hospital Course Hospital Course Patient's coronary angiogram showed patent prior LAD stent and traffic engineering director of RCA. Medical therapy decided for that. Patient was kept on IV fluids and discharged home later in day. Outpatient BMP to assess creatinine in 3-5 days Physical Exam Narrative: GENERAL: Patient is alert, awake and oriented x3. [] NECK: No jugular vein distension. [] HEENT: No cyanosis. No icterus. No pallor. [] HEART: Regular S1 and S2. No murmur, rub or gallop. [] LUNGS: Clear to auscultate bilaterally. [] CENTRAL NERVOUS SYSTEM: Grossly nonfocal. [] EXTREMITIES: Lower extremities with 1+ edema bilaterally. Discharge Data Studies Completed and Pending Pending at discharge Category Date Time Status CLINICAL FELLOW request for service Routine Exams 04/07/24 06:05 Taken Basic Metabolic Panel AM LABS Lab 04/08/24 04:00 Ordered Basic Metabolic Panel AM LABS Lab 04/09/24 04:00 Ordered Complete Blood Count w/Auto AM LABS Lab 04/08/24 04:00 Ordered Complete Blood Count w/Auto AM LABS Lab 04/09/24 04:00 Ordered Laboratory Results WBC 5.17 10^3/uL (3.29-11.43) 04/07/24 03:40 RBC 5.82 10^6/uL (3.85-5.65) H 04/07/24 03:40 Hgb 11.60 g/dL (11.27-16.99) 04/07/24 03:40 Hct 42.9 % (37-53) 04/07/24 03:40 MCV 73.7 fl (82-101) L 04/07/24 03:40 MCH 19.9 pg (27-33) L 04/07/24 03:40 MCHC 27.0 g/dL (30-55) L 04/07/24 03:40 RDW 19.2 % (12.1-15.1) H 04/07/24 03:40 Plt Count 205 10^3/cmm (157-399) 04/07/24 03:40 MPV 9.8 fL (7.4-10.4) 04/07/24 03:40 Neut % (Auto) 64.6 % 04/07/24 03:40 Lymph % (Auto) 23.4 % 04/07/24 03:40 Angelina % (Auto) 8.9 % 04/07/24 03:40 Eos % (Auto) 2.3 % 04/07/24 03:40 Baso % (Auto) 0.6 % 04/07/24 03:40 Neut # (Auto) 3.34 10^3/uL (1.8-7.7) 04/07/24 03:40 Lymph # (Auto) 1.2 10^3/uL (0.8-4.8) 04/07/24 03:40 Angelina # (Auto) 0.5 10^3/uL (0.2-0.9) 04/07/24 03:40 Eos # (Auto) 0.1 10^3/uL (0.0-0.8) 04/07/24 03:40 Baso # (Auto) 0.0 10^3/uL (0.0-0.1) 04/07/24 03:40 Nucleated RBC % (auto) 0 % 04/07/24 03:40 Nucleated RBCs # 0.0 /100WBC 04/07/24 03:40 Sodium 139 mmol/L (136-145) 04/07/24 03:40 Potassium 3.4 mmol/L (3.5-5.1) L 04/07/24 03:40 Chloride 107 mmol/L (98-107) 04/07/24 03:40 Carbon Dioxide 22 mmol/L (22-29) 04/07/24 03:40 Anion Gap 13.4 (5-19) 04/07/24 03:40 BUN 14 mg/dL (6-20) 04/07/24 03:40 Creatinine 2.0 mg/dL (0.7-1.2) H 04/07/24 03:40 GFR Calculation 35.5 mL/min (90-130) L 04/07/24 03:40 Glucose 91 mg/dL (65-115) 04/07/24 03:40 Calculated Osmolality 288 mOsm/kg (285-295) 04/07/24 03:40 Calcium 8.7 mg/dL (8.5-10.5) 04/07/24 03:40 Vitals Last Vital Signs Temp 97.6 F 04/07/24 11:12 Pulse 93 04/07/24 16:00 Resp 17 04/07/24 16:00 BP 145/89 04/07/24 16:00 Pulse Ox 98 04/07/24 11:12 O2 Del Method Room Air 04/07/24 11:12 Discharge Plan Discharge Patient Disposition: Home Prescriptions: Continued aspirin 325 mg tablet 81 mg PO DAILY cholecalciferol (vitamin D3) 1,000 unit capsule 1,000 unit PO DAILY amlodipine [Norvasc] 10 mg tablet 10 mg PO DAILY Qty: 90 4RF Repatha Syringe 140 mg/mL syringe 140 mg SUBCUT ONCE potassium chloride 20 mEq tablet extended release 20 meq PO DAILY Rx Instructions: PRN when taking furosemide prasugrel 10 mg tablet 10 mg PO DAILY Qty: 90 3RF furosemide [Lasix] 20 mg tablet 20 mg PO BID Patient Comments: Patient takes only for edema Rx Instructions: PRN trazodone 150 mg tablet 150 mg PO .HS Qty: 30 2RF metoprolol succinate 25 mg tablet extended release 24 hr 25 mg PO BID Qty: 180 2RF isosorbide mononitrate 30 mg tablet extended release 24 hr 30 mg PO DAILY Qty: 90 3RF Discharge Orders: Discharge Order (Routine); Ordered 04/07/24 Ordered By: aCsimiro Cerna Referrals: Juanita Urrutia FNP [Nurse Practitioner] - 05/04/24 2:00 pm Hina Zaragoza DO [Primary Care Provider] - 04/12/24 1:40 pm Diet: Cardiac Activity: Increase activity as tolerated Patient Instructions: Opioid Safety, Post Angiogram Home Care Instructions Discharge Date/Time: 04/07/24 17:52 Discharge Attestations Time Spent in Discharge Care*: less than 30 min Quality Metrics Clinical Quality Measures [ No reported AMI, CVA or VTE this stay] Coding Level of Care Code Acute Code for [facility] Fwd Diagnoses Abnormal stress test R94.39 Worsening angina I20.0 Essential (primary) hypertension I10 Arteriosclerotic heart disease I25.10 Chronic renal insufficiency, stage III (moderate) N18.30 Chronic kidney disease stage 3 subtype: unspecified whether 3a or 3b
--- NOTE | 2024-04-07 17:48 | PC.NURSE ---
Patients TR band removed per protocol at 1430. No issues or concerns. Patient understands discharge instructions. IV removed, patient left via POV>
== END 2024-04-07 17:52 | disposition home or self-care (01) ==
LOC: CSU 04-07 17:08 → CARD 04-08 13:50
PROVIDERS: PCP Family Medicine; Visit Provider Internal Medicine
DX: R94.39 Abnormal result of other cardiovascular function study (principal); I25.110 Atherosclerotic heart disease of native coronary artery with unstable angina pectoris; I12.9 Hypertensive chronic kidney disease with stage 1 through stage 4 chronic kidney disease, or unspecified chronic kidney disease; N18.30 Chronic kidney disease, stage 3 unspecified; G47.33 Obstructive sleep apnea (adult) (pediatric); Z95.5 Presence of coronary angioplasty implant and graft; Z79.82 Long term (current) use of aspirin; Z87.891 Personal history of nicotine dependence
CPT/HCPCS: 36415; 80048; 85025; 93458; 96374; 96375; 99152; 99153; C1769; C1887; C1894; G0378; J1644; J2250; J3010; J3490; J7030; Q9967

== ENCOUNTER 2024-04-19 06:31 | Outpatient (RCR) | payer MEDICARE, SELFPAY ==
[2024-04-05 07:33] LABS: Basophils # 0.1 10^3/uL (0.0-0.1); Eosinophils # 0.2 10^3/uL (0.0-0.8); Eosinophils % 3.5 %; Hematocrit 44.2 % (37-53); Lymphocytes # 1.3 10^3/uL (0.8-4.8); Lymphocytes % 26.8 %; Mean Corpuscular HGB Conc 27.8 g/dL (30-55); Mean Corpuscular Volume 71.8 fl (82-101); Mean Platelet Volume 9.9 fL (7.4-10.4); Monocytes # 0.4 10^3/uL (0.2-0.9); Monocytes % 8.7 %; Neutrophils # 2.88 10^3/uL (1.8-7.7); Nucleated Red Blood Cells % 0 %; Platelet Count 224 10^3/cmm (157-399); Red Blood Count 6.16 10^6/uL (3.85-5.65); Red Cell Distribution Width 19.4 % (12.1-15.1); White Blood Count 4.81 10^3/uL (3.29-11.43)
[2024-04-05 07:51] LABS: Ammonia 23 umol/L (16-60)
[2024-04-05 07:53] LABS: Alanine Aminotransferase 17 U/L (0-41); Albumin Level 4.2 g/dL (3.5-5.2); Alkaline Phosphatase 44 U/L (40-130); Anion Gap 15.1 (5-19); Aspartate Amino Transferase 23 U/L (0-40); Blood Urea Nitrogen 16 mg/dL (6-20); Calcium 8.9 mg/dL (8.5-10.5); Carbon Dioxide 23 mmol/L (22-29); Chloride 108 mmol/L (98-107); Creatine Phosphokinase 315 U/L (39-308); Globulin 2.1 g/dL (1.3-4.6); Glomerular Filtration Rate 31.8 mL/min (90-130); Glucose 89 mg/dL (65-115); Osmolality Calculated 295 mOsm/kg (285-295); Potassium 4.1 mmol/L (3.5-5.1); Sodium 142 mmol/L (136-145); Total Bilirubin 0.4 mg/dL (0.15-1.2); Total Protein 6.3 g/dL (6.6-8.7)
[2024-04-12 06:54] LABS: Basophils % 0.7 %; Eosinophils # 0.2 10^3/uL (0.0-0.8); Eosinophils % 3.9 %; Hematocrit 40.8 % (37-53); Lymphocytes # 1.1 10^3/uL (0.8-4.8); Lymphocytes % 24.5 %; Mean Corpuscular HGB Conc 27.7 g/dL (30-55); Mean Corpuscular Hemoglobin 19.9 pg (27-33); Mean Platelet Volume 9.7 fL (7.4-10.4); Monocytes # 0.4 10^3/uL (0.2-0.9); Monocytes % 9.5 %; Neutrophils # 2.81 10^3/uL (1.8-7.7); Nucleated Red Blood Cells % 0 %; Platelet Count 181 10^3/cmm (157-399); Red Blood Count 5.67 10^6/uL (3.85-5.65); White Blood Count 4.61 10^3/uL (3.29-11.43)
[2024-04-12 07:12] LABS: Ammonia 42 umol/L (16-60)
[2024-04-12 07:13] LABS: Alanine Aminotransferase 19 U/L (0-41); Albumin Level 4.2 g/dL (3.5-5.2); Alkaline Phosphatase 47 U/L (40-130); Anion Gap 12.8 (5-19); Aspartate Amino Transferase 31 U/L (0-40); Blood Urea Nitrogen 19 mg/dL (6-20); Calcium 9.1 mg/dL (8.5-10.5); Carbon Dioxide 23 mmol/L (22-29); Chloride 110 mmol/L (98-107); Glomerular Filtration Rate 27.5 mL/min (90-130); Glucose 108 mg/dL (65-115); Osmolality Calculated 297 mOsm/kg (285-295); Potassium 3.8 mmol/L (3.5-5.1); Sodium 142 mmol/L (136-145); Total Bilirubin 0.3 mg/dL (0.15-1.2); Total Protein 6.2 g/dL (6.6-8.7)
[2024-04-12 13:16] LABS: Creatine Phosphokinase 574 U/L (39-308)
[2024-04-19 06:55] LABS: Basophils % 0.6 %; Eosinophils # 0.2 10^3/uL (0.0-0.8); Eosinophils % 3.8 %; Hematocrit 42.6 % (37-53); Lymphocytes # 1.3 10^3/uL (0.8-4.8); Lymphocytes % 24.3 %; Mean Corpuscular HGB Conc 28.2 g/dL (30-55); Mean Corpuscular Hemoglobin 19.9 pg (27-33); Mean Corpuscular Volume 70.5 fl (82-101); Monocytes # 0.5 10^3/uL (0.2-0.9); Monocytes % 9.6 %; Neutrophils # 3.21 10^3/uL (1.8-7.7); Neutrophils % 61.5 %; Nucleated Red Blood Cells % 0 %; Platelet Count 196 10^3/cmm (157-399); Red Blood Count 6.04 10^6/uL (3.85-5.65); Red Cell Distribution Width 18.8 % (12.1-15.1); White Blood Count 5.22 10^3/uL (3.29-11.43)
[2024-04-19 07:12] LABS: Alanine Aminotransferase 25 U/L (0-41); Albumin Level 4.2 g/dL (3.5-5.2); Alkaline Phosphatase 53 U/L (40-130); Anion Gap 15.1 (5-19); Aspartate Amino Transferase 27 U/L (0-40); Blood Urea Nitrogen 22 mg/dL (6-20); Calcium 9.5 mg/dL (8.5-10.5); Carbon Dioxide 24 mmol/L (22-29); Chloride 106 mmol/L (98-107); Globulin 2.2 g/dL (1.3-4.6); Glomerular Filtration Rate 30.2 mL/min (90-130); Glucose 105 mg/dL (65-115); Osmolality Calculated 296 mOsm/kg (285-295); Potassium 4.1 mmol/L (3.5-5.1); Sodium 141 mmol/L (136-145); Total Bilirubin 0.4 mg/dL (0.15-1.2); Total Protein 6.4 g/dL (6.6-8.7)
[2024-04-19 07:13] LABS: Ammonia 37 umol/L (16-60)
[2024-04-19 14:24] LABS: Creatine Phosphokinase 413 U/L (39-308)
== END 2024-04-25 23:59 | disposition home or self-care (01) ==
LOC: LAB 06:31
PROVIDERS: PCP Family Medicine; Visit Provider Family Medicine
DX: E74.04 McArdle disease (principal); I10 Essential (primary) hypertension; M62.82 Rhabdomyolysis; Z79.899 Other long term (current) drug therapy
CPT/HCPCS: 36415; 80053; 82140; 82550; 85025

== ENCOUNTER → 2024-05-04 13:47 | Outpatient (BNVA) | payer MEDICARE, SELFPAY | PROVIDERS: PCP Family Medicine; Visit Provider Nurse Practitioner Family | DX: I25.10 Atherosclerotic heart disease of native coronary artery without angina pectoris (principal) | CPT/HCPCS: 99213 ==

== ENCOUNTER 2024-05-24 06:56 | Outpatient (RCR) | payer MEDICARE, SELFPAY ==
[2024-04-26 07:41] LABS: Ammonia 22 umol/L (16-60)
[2024-04-26 07:42] LABS: Alanine Aminotransferase 21 U/L (0-41); Albumin Level 4.6 g/dL (3.5-5.2); Alkaline Phosphatase 54 U/L (40-130); Aspartate Amino Transferase 21 U/L (0-40); Basophils # 0.1 10^3/uL (0.0-0.1); Basophils % 0.8 %; Blood Urea Nitrogen 21 mg/dL (6-20); Calcium 9.5 mg/dL (8.5-10.5); Carbon Dioxide 24 mmol/L (22-29); Chloride 105 mmol/L (98-107); Creatine Phosphokinase 222 U/L (39-308); Eosinophils # 0.1 10^3/uL (0.0-0.8); Eosinophils % 1.6 %; Globulin 2.1 g/dL (1.3-4.6); Glomerular Filtration Rate 35.5 mL/min (90-130); Glucose 111 mg/dL (65-115); Hematocrit 45.8 % (37-53); Lymphocytes # 1.1 10^3/uL (0.8-4.8); Lymphocytes % 17.4 %; Mean Corpuscular HGB Conc 27.9 g/dL (30-55); Mean Corpuscular Hemoglobin 19.9 pg (27-33); Mean Corpuscular Volume 71.1 fl (82-101); Mean Platelet Volume 9.8 fL (7.4-10.4); Monocytes # 0.5 10^3/uL (0.2-0.9); Monocytes % 7.5 %; Neutrophils # 4.53 10^3/uL (1.8-7.7); Neutrophils % 72.2 %; Nucleated Red Blood Cells % 0 %; Osmolality Calculated 292 mOsm/kg (285-295); Platelet Count 217 10^3/cmm (157-399); Red Blood Count 6.44 10^6/uL (3.85-5.65); Red Cell Distribution Width 19.8 % (12.1-15.1); Sodium 139 mmol/L (136-145); Total Bilirubin 0.3 mg/dL (0.15-1.2); Total Protein 6.7 g/dL (6.6-8.7); White Blood Count 6.27 10^3/uL (3.29-11.43)
[2024-05-03 07:49] LABS: Basophils % 0.6 %; Eosinophils # 0.2 10^3/uL (0.0-0.8); Eosinophils % 2.3 %; Hematocrit 44.4 % (37-53); Lymphocytes # 1.3 10^3/uL (0.8-4.8); Lymphocytes % 20.4 %; Mean Corpuscular HGB Conc 28.4 g/dL (30-55); Mean Corpuscular Hemoglobin 20.1 pg (27-33); Mean Corpuscular Volume 70.7 fl (82-101); Mean Platelet Volume 9.7 fL (7.4-10.4); Monocytes # 0.5 10^3/uL (0.2-0.9); Monocytes % 7.7 %; Neutrophils # 4.44 10^3/uL (1.8-7.7); Neutrophils % 68.5 %; Nucleated Red Blood Cells % 0 %; Platelet Count 246 10^3/cmm (157-399); Red Blood Count 6.28 10^6/uL (3.85-5.65); Red Cell Distribution Width 20.5 % (12.1-15.1); White Blood Count 6.48 10^3/uL (3.29-11.43)
[2024-05-03 07:59] LABS: Alanine Aminotransferase 18 U/L (0-41); Albumin Level 4.4 g/dL (3.5-5.2); Alkaline Phosphatase 55 U/L (40-130); Anion Gap 13.8 (5-19); Aspartate Amino Transferase 20 U/L (0-40); Blood Urea Nitrogen 18 mg/dL (6-20); Calcium 9.4 mg/dL (8.5-10.5); Carbon Dioxide 23 mmol/L (22-29); Chloride 104 mmol/L (98-107); Creatine Phosphokinase 207 U/L (39-308); Globulin 2.5 g/dL (1.3-4.6); Glomerular Filtration Rate 33.6 mL/min (90-130); Glucose 118 mg/dL (65-115); Osmolality Calculated 287 mOsm/kg (285-295); Potassium 3.8 mmol/L (3.5-5.1); Sodium 137 mmol/L (136-145); Total Bilirubin 0.4 mg/dL (0.15-1.2); Total Protein 6.9 g/dL (6.6-8.7)
[2024-05-03 08:00] LABS: Ammonia 31 umol/L (16-60)
[2024-05-10 08:44] LABS: Basophils # 0.1 10^3/uL (0.0-0.1); Basophils % 0.9 %; Eosinophils # 0.2 10^3/uL (0.0-0.8); Eosinophils % 2.7 %; Hematocrit 44.6 % (37-53); Lymphocytes # 1.1 10^3/uL (0.8-4.8); Lymphocytes % 19.3 %; Mean Corpuscular HGB Conc 28.3 g/dL (30-55); Mean Corpuscular Hemoglobin 20.3 pg (27-33); Mean Corpuscular Volume 71.8 fl (82-101); Mean Platelet Volume 9.7 fL (7.4-10.4); Monocytes # 0.4 10^3/uL (0.2-0.9); Monocytes % 7.5 %; Neutrophils % 69.2 %; Nucleated Red Blood Cells % 0 %; Platelet Count 216 10^3/cmm (157-399); Red Blood Count 6.21 10^6/uL (3.85-5.65); Red Cell Distribution Width 20.5 % (12.1-15.1); White Blood Count 5.49 10^3/uL (3.29-11.43)
[2024-05-10 08:53] LABS: Ammonia 46 umol/L (16-60)
[2024-05-10 09:05] LABS: Alanine Aminotransferase 22 U/L (0-41); Albumin Level 4.3 g/dL (3.5-5.2); Alkaline Phosphatase 50 U/L (40-130); Anion Gap 16.5 (5-19); Aspartate Amino Transferase 24 U/L (0-40); Blood Urea Nitrogen 18 mg/dL (6-20); Calcium 9.1 mg/dL (8.5-10.5); Carbon Dioxide 22 mmol/L (22-29); Chloride 102 mmol/L (98-107); Creatine Phosphokinase 232 U/L (39-308); Globulin 2.1 g/dL (1.3-4.6); Glomerular Filtration Rate 30.2 mL/min (90-130); Glucose 112 mg/dL (65-115); Osmolality Calculated 287 mOsm/kg (285-295); Potassium 3.5 mmol/L (3.5-5.1); Sodium 137 mmol/L (136-145); Total Bilirubin 0.4 mg/dL (0.15-1.2); Total Protein 6.4 g/dL (6.6-8.7)
[2024-05-17 07:19] LABS: Basophils # 0.1 10^3/uL (0.0-0.1); Eosinophils # 0.1 10^3/uL (0.0-0.8); Eosinophils % 2.8 %; Hematocrit 43.2 % (37-53); Lymphocytes # 1.2 10^3/uL (0.8-4.8); Mean Corpuscular HGB Conc 28.2 g/dL (30-55); Mean Corpuscular Hemoglobin 20.2 pg (27-33); Mean Corpuscular Volume 71.6 fl (82-101); Mean Platelet Volume 9.5 fL (7.4-10.4); Monocytes # 0.5 10^3/uL (0.2-0.9); Monocytes % 8.9 %; Neutrophils # 3.17 10^3/uL (1.8-7.7); Neutrophils % 62.9 %; Nucleated Red Blood Cells % 0 %; Platelet Count 184 10^3/cmm (157-399); Red Blood Count 6.03 10^6/uL (3.85-5.65); Red Cell Distribution Width 20.1 % (12.1-15.1); White Blood Count 5.04 10^3/uL (3.29-11.43)
[2024-05-17 07:41] LABS: Ammonia 36 umol/L (16-60)
[2024-05-17 07:42] LABS: Alanine Aminotransferase 26 U/L (0-41); Albumin Level 4.2 g/dL (3.5-5.2); Alkaline Phosphatase 52 U/L (40-130); Anion Gap 14.8 (5-19); Aspartate Amino Transferase 30 U/L (0-40); Blood Urea Nitrogen 19 mg/dL (6-20); Carbon Dioxide 21 mmol/L (22-29); Chloride 110 mmol/L (98-107); Glomerular Filtration Rate 31.8 mL/min (90-130); Glucose 105 mg/dL (65-115); Osmolality Calculated 297 mOsm/kg (285-295); Potassium 3.8 mmol/L (3.5-5.1); Sodium 142 mmol/L (136-145); Total Bilirubin 0.3 mg/dL (0.15-1.2); Total Protein 6.2 g/dL (6.6-8.7)
[2024-05-17 08:35] LABS: Creatine Phosphokinase 394 U/L (39-308)
[2024-05-24 07:19] LABS: Basophils % 0.8 %; Eosinophils # 0.2 10^3/uL (0.0-0.8); Eosinophils % 3.2 %; Hematocrit 43.7 % (37-53); Lymphocytes # 1.2 10^3/uL (0.8-4.8); Lymphocytes % 24.9 %; Mean Corpuscular HGB Conc 28.4 g/dL (30-55); Mean Corpuscular Hemoglobin 20.9 pg (27-33); Mean Corpuscular Volume 73.6 fl (82-101); Mean Platelet Volume 9.4 fL (7.4-10.4); Monocytes # 0.5 10^3/uL (0.2-0.9); Monocytes % 9.5 %; Neutrophils # 2.91 10^3/uL (1.8-7.7); Neutrophils % 61.4 %; Nucleated Red Blood Cells % 0 %; Platelet Count 171 10^3/cmm (157-399); Red Blood Count 5.94 10^6/uL (3.85-5.65); Red Cell Distribution Width 20.6 % (12.1-15.1); White Blood Count 4.74 10^3/uL (3.29-11.43)
[2024-05-24 07:29] LABS: Ammonia 46 umol/L (16-60)
[2024-05-24 07:33] LABS: Alanine Aminotransferase 23 U/L (0-41); Albumin Level 4.2 g/dL (3.5-5.2); Alkaline Phosphatase 45 U/L (40-130); Anion Gap 15.9 (5-19); Aspartate Amino Transferase 24 U/L (0-40); Blood Urea Nitrogen 22 mg/dL (6-20); Calcium 8.8 mg/dL (8.5-10.5); Carbon Dioxide 21 mmol/L (22-29); Chloride 107 mmol/L (98-107); Creatine Phosphokinase 280 U/L (39-308); Globulin 2.1 g/dL (1.3-4.6); Glomerular Filtration Rate 31.8 mL/min (90-130); Glucose 101 mg/dL (65-115); Osmolality Calculated 293 mOsm/kg (285-295); Potassium 3.9 mmol/L (3.5-5.1); Sodium 140 mmol/L (136-145); Total Bilirubin 0.4 mg/dL (0.15-1.2); Total Protein 6.3 g/dL (6.6-8.7)
== END 2024-05-26 23:59 | disposition home or self-care (01) ==
LOC: LAB 06:56
PROVIDERS: PCP Family Medicine; Visit Provider Family Medicine
DX: E74.04 McArdle disease (principal); I10 Essential (primary) hypertension; M62.82 Rhabdomyolysis
CPT/HCPCS: 36415; 80053; 82140; 82550; 85025

== ENCOUNTER → 2024-05-28 08:49 | Outpatient (BNVA) | payer MEDICARE, SELFPAY | PROVIDERS: PCP Family Medicine; Visit Provider Internal Medicine Cardiovascular Disease | DX: I12.9 Hypertensive chronic kidney disease with stage 1 through stage 4 chronic kidney disease, or unspecified chronic kidney disease (principal); N18.30 Chronic kidney disease, stage 3 unspecified; I25.10 Atherosclerotic heart disease of native coronary artery without angina pectoris; R00.2 Palpitations; F31.9 Bipolar disorder, unspecified; E74.04 McArdle disease; R06.02 Shortness of breath; G47.33 Obstructive sleep apnea (adult) (pediatric); Z87.891 Personal history of nicotine dependence | CPT/HCPCS: 99213 ==

== ENCOUNTER 2024-06-14 06:54 | Outpatient (RCR) | payer MEDICARE, SELFPAY ==
[2024-06-07 07:34] LABS: Basophils # 0.1 10^3/uL (0.0-0.1); Basophils % 0.8 %; Eosinophils # 0.2 10^3/uL (0.0-0.8); Eosinophils % 2.9 %; Hematocrit 47.3 % (37-53); Lymphocytes # 1.5 10^3/uL (0.8-4.8); Lymphocytes % 24.6 %; Mean Corpuscular HGB Conc 28.1 g/dL (30-55); Mean Corpuscular Hemoglobin 21.1 pg (27-33); Mean Platelet Volume 9.3 fL (7.4-10.4); Monocytes # 0.6 10^3/uL (0.2-0.9); Monocytes % 10.3 %; Neutrophils # 3.75 10^3/uL (1.8-7.7); Neutrophils % 61.2 %; Nucleated Red Blood Cells % 0 %; Platelet Count 214 10^3/cmm (157-399); Red Blood Count 6.31 10^6/uL (3.85-5.65); Red Cell Distribution Width 21.1 % (12.1-15.1); White Blood Count 6.13 10^3/uL (3.29-11.43)
[2024-06-07 07:48] LABS: Alanine Aminotransferase 23 U/L (0-41); Albumin Level 4.4 g/dL (3.5-5.2); Alkaline Phosphatase 45 U/L (40-130); Anion Gap 16.2 (5-19); Aspartate Amino Transferase 26 U/L (0-40); Blood Urea Nitrogen 22 mg/dL (6-20); Calcium 9.1 mg/dL (8.5-10.5); Carbon Dioxide 22 mmol/L (22-29); Chloride 105 mmol/L (98-107); Creatine Phosphokinase 249 U/L (39-308); Globulin 2.4 g/dL (1.3-4.6); Glomerular Filtration Rate 37.6 mL/min (90-130); Glucose 102 mg/dL (65-115); Osmolality Calculated 292 mOsm/kg (285-295); Potassium 4.2 mmol/L (3.5-5.1); Sodium 139 mmol/L (136-145); Total Bilirubin 0.4 mg/dL (0.15-1.2); Total Protein 6.8 g/dL (6.6-8.7)
[2024-06-07 07:55] LABS: Ammonia 57 umol/L (16-60)
[2024-06-14 07:13] LABS: Basophils % 0.4 %; Eosinophils # 0.2 10^3/uL (0.0-0.8); Eosinophils % 2.9 %; Hematocrit 42.9 % (37-53); Lymphocytes # 0.9 10^3/uL (0.8-4.8); Lymphocytes % 11.1 %; Mean Corpuscular HGB Conc 28.4 g/dL (30-55); Mean Corpuscular Hemoglobin 20.7 pg (27-33); Mean Platelet Volume 9.7 fL (7.4-10.4); Monocytes # 0.7 10^3/uL (0.2-0.9); Monocytes % 8.6 %; Neutrophils # 5.89 10^3/uL (1.8-7.7); Neutrophils % 76.7 %; Nucleated Red Blood Cells % 0 %; Platelet Count 195 10^3/cmm (157-399); Red Blood Count 5.88 10^6/uL (3.85-5.65); Red Cell Distribution Width 20.6 % (12.1-15.1); White Blood Count 7.67 10^3/uL (3.29-11.43)
[2024-06-14 07:37] LABS: Alanine Aminotransferase 23 U/L (0-41); Albumin Level 4.1 g/dL (3.5-5.2); Alkaline Phosphatase 46 U/L (40-130); Ammonia 39 umol/L (16-60); Aspartate Amino Transferase 28 U/L (0-40); Blood Urea Nitrogen 22 mg/dL (6-20); Calcium 8.8 mg/dL (8.5-10.5); Carbon Dioxide 22 mmol/L (22-29); Chloride 102 mmol/L (98-107); Creatine Phosphokinase 284 U/L (39-308); Globulin 2.1 g/dL (1.3-4.6); Glomerular Filtration Rate 30.1 mL/min (90-130); Glucose 105 mg/dL (65-115); Osmolality Calculated 286 mOsm/kg (285-295); Sodium 136 mmol/L (136-145); Total Bilirubin 0.3 mg/dL (0.15-1.2); Total Protein 6.2 g/dL (6.6-8.7)
[2024-06-14 07:46] LABS: Anion Gap 15.8 (5-19); Potassium 3.8 mmol/L (3.5-5.1)
== END 2024-06-26 23:59 | disposition home or self-care (01) ==
LOC: LAB 06:54
PROVIDERS: PCP Family Medicine; Visit Provider Family Medicine
DX: E74.04 McArdle disease (principal); I10 Essential (primary) hypertension; M62.82 Rhabdomyolysis
CPT/HCPCS: 36415; 80053; 82140; 82550; 85025

== ENCOUNTER 2024-06-22 12:27 | Outpatient (CLI) | payer MEDICARE, SELFPAY ==
[2024-06-22 12:50] LABS: Basophils % 0.4 %; Eosinophils # 0.1 10^3/uL (0.0-0.8); Eosinophils % 1.4 %; Hematocrit 45.1 % (37-53); Lymphocytes # 1.4 10^3/uL (0.8-4.8); Lymphocytes % 19.5 %; Mean Corpuscular HGB Conc 28.4 g/dL (30-55); Mean Corpuscular Hemoglobin 20.7 pg (27-33); Mean Corpuscular Volume 72.9 fl (82-101); Mean Platelet Volume 9.6 fL (7.4-10.4); Monocytes # 0.5 10^3/uL (0.2-0.9); Monocytes % 7.7 %; Neutrophils # 4.95 10^3/uL (1.8-7.7); Neutrophils % 70.6 %; Nucleated Red Blood Cells % 0 %; Platelet Count 227 10^3/cmm (157-399); Red Blood Count 6.19 10^6/uL (3.85-5.65); Red Cell Distribution Width 19.9 % (12.1-15.1); White Blood Count 7.02 10^3/uL (3.29-11.43)
[2024-06-22 13:08] LABS: Alanine Aminotransferase 33 U/L (0-41); Albumin Level 4.2 g/dL (3.5-5.2); Alkaline Phosphatase 48 U/L (40-130); Anion Gap 14.7 (5-19); Aspartate Amino Transferase 63 U/L (0-40); Blood Urea Nitrogen 19 mg/dL (6-20); Calcium 8.7 mg/dL (8.5-10.5); Carbon Dioxide 22 mmol/L (22-29); Chloride 103 mmol/L (98-107); Globulin 2.3 g/dL (1.3-4.6); Glomerular Filtration Rate 35.4 mL/min (90-130); Glucose 107 mg/dL (65-115); Osmolality Calculated 285 mOsm/kg (285-295); Potassium 3.7 mmol/L (3.5-5.1); Sodium 136 mmol/L (136-145); Total Bilirubin 0.3 mg/dL (0.15-1.2); Total Protein 6.5 g/dL (6.6-8.7)
[2024-06-22 13:10] LABS: Ammonia 32 umol/L (16-60)
[2024-06-22 13:43] LABS: Creatine Phosphokinase 2717 U/L (39-308)
== END 2024-06-22 12:28 | disposition home or self-care (01) ==
LOC: LAB 12:33
PROVIDERS: PCP Family Medicine; Visit Provider Family Medicine
DX: E74.04 McArdle disease (principal); I10 Essential (primary) hypertension; M62.82 Rhabdomyolysis
CPT/HCPCS: 36415; 80053; 82140; 82550; 85025

== ENCOUNTER 2024-06-29 06:49 | Outpatient (RCR) | payer MEDICARE, SELFPAY ==
[2024-06-29 07:11] LABS: Basophils % 0.5 %; Eosinophils # 0.2 10^3/uL (0.0-0.8); Eosinophils % 2.1 %; Lymphocytes # 1.4 10^3/uL (0.8-4.8); Lymphocytes % 18.1 %; Mean Corpuscular HGB Conc 28.1 g/dL (30-55); Mean Corpuscular Hemoglobin 20.5 pg (27-33); Mean Corpuscular Volume 72.9 fl (82-101); Mean Platelet Volume 9.2 fL (7.4-10.4); Monocytes # 0.6 10^3/uL (0.2-0.9); Monocytes % 8.1 %; Neutrophils # 5.42 10^3/uL (1.8-7.7); Neutrophils % 70.9 %; Nucleated Red Blood Cells % 0 %; Platelet Count 230 10^3/cmm (157-399); Red Blood Count 6.58 10^6/uL (3.85-5.65); Red Cell Distribution Width 20.2 % (12.1-15.1); White Blood Count 7.64 10^3/uL (3.29-11.43)
[2024-06-29 07:31] LABS: Alanine Aminotransferase 30 U/L (0-41); Albumin Level 4.3 g/dL (3.5-5.2); Alkaline Phosphatase 51 U/L (40-130); Anion Gap 15.8 (5-19); Aspartate Amino Transferase 31 U/L (0-40); Blood Urea Nitrogen 15 mg/dL (6-20); Calcium 9.1 mg/dL (8.5-10.5); Carbon Dioxide 23 mmol/L (22-29); Chloride 104 mmol/L (98-107); Globulin 2.3 g/dL (1.3-4.6); Glomerular Filtration Rate 37.6 mL/min (90-130); Glucose 106 mg/dL (65-115); Osmolality Calculated 289 mOsm/kg (285-295); Potassium 3.8 mmol/L (3.5-5.1); Sodium 139 mmol/L (136-145); Total Bilirubin 0.4 mg/dL (0.15-1.2); Total Protein 6.6 g/dL (6.6-8.7)
[2024-06-29 07:32] LABS: Ammonia 47 umol/L (16-60)
[2024-06-29 16:00] LABS: Creatine Phosphokinase 372 U/L (39-308)
== END 2024-07-26 23:59 | disposition home or self-care (01) ==
LOC: LAB 06:49
PROVIDERS: PCP Family Medicine; Visit Provider Family Medicine
DX: E74.04 McArdle disease (principal); M62.82 Rhabdomyolysis; Z79.899 Other long term (current) drug therapy
CPT/HCPCS: 36415; 80053; 82140; 82550; 85025

== ENCOUNTER 2024-07-05 08:49 | Outpatient (CLI) | payer MEDICARE, SELFPAY ==
[2024-07-05 09:26] LABS: Basophils # 0.1 10^3/uL (0.0-0.1); Basophils % 0.6 %; Eosinophils # 0.1 10^3/uL (0.0-0.8); Eosinophils % 1.5 %; Lymphocytes # 1.5 10^3/uL (0.8-4.8); Mean Corpuscular HGB Conc 28.8 g/dL (30-55); Mean Corpuscular Hemoglobin 20.6 pg (27-33); Mean Corpuscular Volume 71.7 fl (82-101); Mean Platelet Volume 9.2 fL (7.4-10.4); Monocytes # 0.7 10^3/uL (0.2-0.9); Monocytes % 8.5 %; Neutrophils # 5.49 10^3/uL (1.8-7.7); Nucleated Red Blood Cells % 0 %; Platelet Count 230 10^3/cmm (157-399); Red Blood Count 6.83 10^6/uL (3.85-5.65); Red Cell Distribution Width 19.5 % (12.1-15.1); White Blood Count 7.85 10^3/uL (3.29-11.43)
[2024-07-05 09:47] LABS: Ammonia 27 umol/L (16-60)
[2024-07-05 09:48] LABS: Alanine Aminotransferase 26 U/L (0-41); Albumin Level 4.5 g/dL (3.5-5.2); Alkaline Phosphatase 55 U/L (40-130); Anion Gap 13.9 (5-19); Aspartate Amino Transferase 28 U/L (0-40); Blood Urea Nitrogen 15 mg/dL (6-20); Calcium 9.2 mg/dL (8.5-10.5); Carbon Dioxide 25 mmol/L (22-29); Chloride 105 mmol/L (98-107); Creatine Phosphokinase 249 U/L (39-308); Globulin 2.5 g/dL (1.3-4.6); Glucose 104 mg/dL (65-115); Osmolality Calculated 291 mOsm/kg (285-295); Potassium 3.9 mmol/L (3.5-5.1); Sodium 140 mmol/L (136-145); Total Bilirubin 0.4 mg/dL (0.15-1.2)
== END 2024-07-05 08:50 | disposition home or self-care (01) ==
LOC: LAB 08:55
PROVIDERS: PCP Family Medicine; Visit Provider Family Medicine
DX: E74.04 McArdle disease (principal); I10 Essential (primary) hypertension; M62.82 Rhabdomyolysis
CPT/HCPCS: 36415; 80053; 82140; 82550; 85025

== ENCOUNTER 2024-07-13 12:01 | Outpatient (CLI) | payer MEDICARE, SELFPAY ==
[2024-07-13 13:08] LABS: Basophils # 0.1 10^3/uL (0.0-0.1); Basophils % 0.8 %; Eosinophils # 0.2 10^3/uL (0.0-0.8); Eosinophils % 2.5 %; Hematocrit 45.5 % (37-53); Lymphocytes # 1.2 10^3/uL (0.8-4.8); Lymphocytes % 18.9 %; Mean Corpuscular HGB Conc 28.6 g/dL (30-55); Mean Corpuscular Hemoglobin 20.5 pg (27-33); Mean Corpuscular Volume 71.9 fl (82-101); Mean Platelet Volume 9.6 fL (7.4-10.4); Monocytes # 0.6 10^3/uL (0.2-0.9); Monocytes % 8.9 %; Neutrophils # 4.47 10^3/uL (1.8-7.7); Neutrophils % 68.4 %; Nucleated Red Blood Cells % 0 %; Platelet Count 191 10^3/cmm (157-399); Red Blood Count 6.33 10^6/uL (3.85-5.65); White Blood Count 6.52 10^3/uL (3.29-11.43)
[2024-07-13 13:22] LABS: Ammonia 46 umol/L (16-60)
[2024-07-13 13:25] LABS: Alanine Aminotransferase 34 U/L (0-41); Albumin Level 4.4 g/dL (3.5-5.2); Alkaline Phosphatase 48 U/L (40-130); Anion Gap 18.3 (5-19); Aspartate Amino Transferase 30 U/L (0-40); Blood Urea Nitrogen 15 mg/dL (6-20); Calcium 8.8 mg/dL (8.5-10.5); Carbon Dioxide 23 mmol/L (22-29); Chloride 103 mmol/L (98-107); Creatine Phosphokinase 265 U/L (39-308); Globulin 2.1 g/dL (1.3-4.6); Glomerular Filtration Rate 35.4 mL/min (90-130); Glucose 98 mg/dL (65-115); Osmolality Calculated 293 mOsm/kg (285-295); Potassium 3.3 mmol/L (3.5-5.1); Sodium 141 mmol/L (136-145); Total Bilirubin 0.3 mg/dL (0.15-1.2); Total Protein 6.5 g/dL (6.6-8.7)
== END 2024-07-13 12:02 | disposition home or self-care (01) ==
LOC: LAB 12:02
PROVIDERS: PCP Family Medicine; Visit Provider Family Medicine
DX: E74.04 McArdle disease (principal); I10 Essential (primary) hypertension; I25.10 Atherosclerotic heart disease of native coronary artery without angina pectoris; R00.2 Palpitations; N18.30 Chronic kidney disease, stage 3 unspecified
CPT/HCPCS: 36415; 80053; 82140; 82550; 85025

== ENCOUNTER 2024-07-19 09:39 | Outpatient (CLI) | payer MEDICARE, SELFPAY ==
[2024-07-19 09:56] LABS: Basophils # 0.1 10^3/uL (0.0-0.1); Basophils % 0.8 %; Eosinophils # 0.2 10^3/uL (0.0-0.8); Eosinophils % 2.2 %; Hematocrit 44.9 % (37-53); Lymphocytes # 1.3 10^3/uL (0.8-4.8); Lymphocytes % 18.5 %; Mean Corpuscular Hemoglobin 20.9 pg (27-33); Mean Corpuscular Volume 72.2 fl (82-101); Mean Platelet Volume 9.3 fL (7.4-10.4); Monocytes # 0.6 10^3/uL (0.2-0.9); Monocytes % 7.8 %; Neutrophils # 5.01 10^3/uL (1.8-7.7); Neutrophils % 70.3 %; Nucleated Red Blood Cells % 0 %; Platelet Count 197 10^3/cmm (157-399); Red Blood Count 6.22 10^6/uL (3.85-5.65); Red Cell Distribution Width 18.9 % (12.1-15.1); White Blood Count 7.14 10^3/uL (3.29-11.43)
[2024-07-19 10:12] LABS: Ammonia 29 umol/L (16-60)
[2024-07-19 10:13] LABS: Alanine Aminotransferase 28 U/L (0-41); Albumin Level 4.3 g/dL (3.5-5.2); Alkaline Phosphatase 46 U/L (40-130); Anion Gap 12.7 (5-19); Aspartate Amino Transferase 25 U/L (0-40); Blood Urea Nitrogen 19 mg/dL (6-20); Carbon Dioxide 26 mmol/L (22-29); Chloride 104 mmol/L (98-107); Creatine Phosphokinase 220 U/L (39-308); Globulin 2.1 g/dL (1.3-4.6); Glomerular Filtration Rate 37.6 mL/min (90-130); Glucose 103 mg/dL (65-115); Osmolality Calculated 291 mOsm/kg (285-295); Potassium 3.7 mmol/L (3.5-5.1); Sodium 139 mmol/L (136-145); Total Bilirubin 0.4 mg/dL (0.15-1.2); Total Protein 6.4 g/dL (6.6-8.7)
== END 2024-07-19 09:40 | disposition home or self-care (01) ==
LOC: LAB 09:42
PROVIDERS: PCP Family Medicine; Visit Provider Family Medicine
DX: E74.04 McArdle disease (principal)
CPT/HCPCS: 36415; 80053; 82140; 82550; 85025

== ENCOUNTER → 2024-07-22 12:51 | Outpatient (BNVA) | payer MEDICARE, SELFPAY | PROVIDERS: PCP Family Medicine; Visit Provider Internal Medicine | DX: I25.10 Atherosclerotic heart disease of native coronary artery without angina pectoris (principal); I11.0 Hypertensive heart disease with heart failure; I50.33 Acute on chronic diastolic (congestive) heart failure; R06.02 Shortness of breath | CPT/HCPCS: 99214 ==

== ENCOUNTER 2024-08-02 06:42 | Outpatient (CLI) | payer MEDICARE, SELFPAY ==
[2024-08-02 07:22] LABS: Basophils # 0.1 10^3/uL (0.0-0.1); Basophils % 0.9 %; Eosinophils # 0.1 10^3/uL (0.0-0.8); Eosinophils % 2.5 %; Hematocrit 44.9 % (37-53); Lymphocytes # 1.1 10^3/uL (0.8-4.8); Mean Corpuscular HGB Conc 28.1 g/dL (30-55); Mean Corpuscular Hemoglobin 20.9 pg (27-33); Mean Corpuscular Volume 74.6 fl (82-101); Mean Platelet Volume 9.1 fL (7.4-10.4); Monocytes # 0.6 10^3/uL (0.2-0.9); Monocytes % 10.1 %; Neutrophils # 3.75 10^3/uL (1.8-7.7); Neutrophils % 66.3 %; Nucleated Red Blood Cells % 0 %; Platelet Count 172 10^3/cmm (157-399); Red Blood Count 6.02 10^6/uL (3.85-5.65); Red Cell Distribution Width 18.5 % (12.1-15.1); White Blood Count 5.65 10^3/uL (3.29-11.43)
[2024-08-02 07:40] LABS: Alanine Aminotransferase 28 U/L (0-41); Alkaline Phosphatase 40 U/L (40-130); Anion Gap 9.9 (5-19); Aspartate Amino Transferase 31 U/L (0-40); Blood Urea Nitrogen 27 mg/dL (6-20); Carbon Dioxide 24 mmol/L (22-29); Chloride 106 mmol/L (98-107); Glomerular Filtration Rate 33.5 mL/min (90-130); Glucose 97 mg/dL (65-115); Osmolality Calculated 287 mOsm/kg (285-295); Potassium 3.9 mmol/L (3.5-5.1); Sodium 136 mmol/L (136-145); Total Bilirubin 0.3 mg/dL (0.15-1.2)
[2024-08-02 07:45] LABS: Ammonia 32 umol/L (16-60)
[2024-08-02 08:06] LABS: Creatine Phosphokinase 458 U/L (39-308)
== END 2024-08-02 06:43 | disposition home or self-care (01) ==
LOC: LAB 06:45
PROVIDERS: PCP Family Medicine; Visit Provider Family Medicine
DX: E74.04 McArdle disease (principal); I10 Essential (primary) hypertension; M62.82 Rhabdomyolysis
CPT/HCPCS: 80053; 82140; 82550; 85025

== ENCOUNTER 2024-08-09 08:48 | Outpatient (CLI) | payer MEDICARE, SELFPAY ==
[2024-08-09 09:08] LABS: Basophils # 0.1 10^3/uL (0.0-0.1); Basophils % 0.8 %; Eosinophils # 0.1 10^3/uL (0.0-0.8); Eosinophils % 2.2 %; Lymphocytes # 1.2 10^3/uL (0.8-4.8); Lymphocytes % 19.2 %; Mean Corpuscular HGB Conc 28.5 g/dL (30-55); Mean Corpuscular Hemoglobin 20.5 pg (27-33); Mean Platelet Volume 9.3 fL (7.4-10.4); Monocytes # 0.4 10^3/uL (0.2-0.9); Neutrophils # 4.46 10^3/uL (1.8-7.7); Neutrophils % 70.6 %; Nucleated Red Blood Cells % 0 %; Platelet Count 199 10^3/cmm (157-399); Red Blood Count 6.39 10^6/uL (3.85-5.65); Red Cell Distribution Width 18.3 % (12.1-15.1); White Blood Count 6.31 10^3/uL (3.29-11.43)
[2024-08-09 09:29] LABS: Ammonia 34 umol/L (16-60)
[2024-08-09 09:30] LABS: Alanine Aminotransferase 24 U/L (0-41); Albumin Level 4.4 g/dL (3.5-5.2); Alkaline Phosphatase 45 U/L (40-130); Anion Gap 14.6 (5-19); Aspartate Amino Transferase 25 U/L (0-40); Blood Urea Nitrogen 18 mg/dL (6-20); Calcium 8.5 mg/dL (8.5-10.5); Carbon Dioxide 22 mmol/L (22-29); Chloride 107 mmol/L (98-107); Globulin 2.1 g/dL (1.3-4.6); Glomerular Filtration Rate 31.7 mL/min (90-130); Glucose 115 mg/dL (65-115); Osmolality Calculated 293 mOsm/kg (285-295); Potassium 3.6 mmol/L (3.5-5.1); Sodium 140 mmol/L (136-145); Total Bilirubin 0.5 mg/dL (0.15-1.2); Total Protein 6.5 g/dL (6.6-8.7)
[2024-08-09 09:56] LABS: Creatine Phosphokinase 324 U/L (39-308)
== END 2024-08-09 08:49 | disposition home or self-care (01) ==
LOC: LAB 08:49
PROVIDERS: PCP Family Medicine; Visit Provider Family Medicine
DX: E74.04 McArdle disease (principal); I10 Essential (primary) hypertension; M62.82 Rhabdomyolysis
CPT/HCPCS: 36415; 80053; 82140; 82550; 85025

== ENCOUNTER 2024-08-16 08:36 | Outpatient (CLI) | payer MEDICARE, SELFPAY ==
[2024-08-16 09:05] LABS: Basophils % 0.5 %; Eosinophils # 0.4 10^3/uL (0.0-0.8); Eosinophils % 4.8 %; Hematocrit 46.2 % (37-53); Lymphocytes # 1.3 10^3/uL (0.8-4.8); Lymphocytes % 16.8 %; Mean Corpuscular HGB Conc 27.9 g/dL (30-55); Mean Corpuscular Hemoglobin 20.3 pg (27-33); Mean Corpuscular Volume 72.6 fl (82-101); Mean Platelet Volume 9.5 fL (7.4-10.4); Monocytes # 0.7 10^3/uL (0.2-0.9); Monocytes % 9.7 %; Neutrophils # 5.16 10^3/uL (1.8-7.7); Neutrophils % 67.7 %; Nucleated Red Blood Cells % 0 %; Platelet Count 200 10^3/cmm (157-399); Red Blood Count 6.36 10^6/uL (3.85-5.65); Red Cell Distribution Width 18.4 % (12.1-15.1); White Blood Count 7.63 10^3/uL (3.29-11.43)
[2024-08-16 09:24] LABS: Alanine Aminotransferase 19 U/L (0-41); Albumin Level 4.3 g/dL (3.5-5.2); Alkaline Phosphatase 47 U/L (40-130); Anion Gap 11.7 (5-19); Aspartate Amino Transferase 22 U/L (0-40); Blood Urea Nitrogen 19 mg/dL (6-20); Calcium 8.7 mg/dL (8.5-10.5); Carbon Dioxide 22 mmol/L (22-29); Chloride 102 mmol/L (98-107); Creatine Phosphokinase 261 U/L (39-308); Globulin 2.2 g/dL (1.3-4.6); Glomerular Filtration Rate 31.7 mL/min (90-130); Glucose 97 mg/dL (65-115); Osmolality Calculated 276 mOsm/kg (285-295); Potassium 3.7 mmol/L (3.5-5.1); Sodium 132 mmol/L (136-145); Total Bilirubin 0.3 mg/dL (0.15-1.2); Total Protein 6.5 g/dL (6.6-8.7)
[2024-08-16 09:25] LABS: Ammonia 33 umol/L (16-60)
== END 2024-08-16 08:37 | disposition home or self-care (01) ==
PROVIDERS: PCP Family Medicine; Visit Provider Family Medicine
DX: E74.04 McArdle disease (principal)
CPT/HCPCS: 36415; 80053; 82140; 82550; 85025

== ENCOUNTER 2024-08-23 07:04 | Outpatient (CLI) | payer MEDICARE, SELFPAY ==
[2024-08-23 07:25] LABS: Basophils # 0.1 10^3/uL (0.0-0.1); Basophils % 0.7 %; Eosinophils # 0.2 10^3/uL (0.0-0.8); Eosinophils % 2.9 %; Hematocrit 46.9 % (37-53); Lymphocytes # 1.4 10^3/uL (0.8-4.8); Lymphocytes % 19.5 %; Mean Corpuscular HGB Conc 28.4 g/dL (30-55); Mean Corpuscular Hemoglobin 20.6 pg (27-33); Mean Corpuscular Volume 72.7 fl (82-101); Mean Platelet Volume 9.4 fL (7.4-10.4); Monocytes # 0.5 10^3/uL (0.2-0.9); Monocytes % 7.1 %; Neutrophils # 4.81 10^3/uL (1.8-7.7); Neutrophils % 69.4 %; Nucleated Red Blood Cells % 0 %; Platelet Count 194 10^3/cmm (157-399); Red Blood Count 6.45 10^6/uL (3.85-5.65); Red Cell Distribution Width 18.6 % (12.1-15.1); White Blood Count 6.93 10^3/uL (3.29-11.43)
[2024-08-23 07:47] LABS: Ammonia 26 umol/L (16-60)
[2024-08-23 07:48] LABS: Alanine Aminotransferase 31 U/L (0-41); Albumin Level 4.2 g/dL (3.5-5.2); Alkaline Phosphatase 47 U/L (40-130); Anion Gap 11.7 (5-19); Aspartate Amino Transferase 32 U/L (0-40); Blood Urea Nitrogen 17 mg/dL (6-20); Calcium 8.6 mg/dL (8.5-10.5); Calcium 8.8 mg/dL (8.5-10.5); Carbon Dioxide 27 mmol/L (22-29); Chloride 101 mmol/L (98-107); Globulin 2.2 g/dL (1.3-4.6); Glomerular Filtration Rate 30.1 mL/min (90-130); Glucose 106 mg/dL (65-115); Osmolality Calculated 284 mOsm/kg (285-295); Potassium 3.7 mmol/L (3.5-5.1); Sodium 136 mmol/L (136-145); Total Bilirubin 0.3 mg/dL (0.15-1.2); Total Protein 6.4 g/dL (6.6-8.7)
[2024-08-23 07:54] LABS: Parathyroid Hormone 42.3 pg/mL (15-65)
[2024-08-23 07:57] LABS: Creatinine Urine, Random 379 mg/dL (39-259); Microalbum Creatinine Ratio Ur 11 mg/dL (0-20); Microalbumin Random Urine 4 ug/dL (0-20)
[2024-08-23 08:05] LABS: Creatine Phosphokinase 328 U/L (39-308)
== END 2024-08-23 07:05 | disposition home or self-care (01) ==
LOC: LAB 07:07
PROVIDERS: PCP Family Medicine; Visit Provider Registered Nurse
DX: N18.32 Chronic kidney disease, stage 3b (principal)
CPT/HCPCS: 36415; 80053; 80069; 82044; 82140; 82310; 82550; 83970; 85025

== ENCOUNTER 2024-08-30 07:46 | Outpatient (CLI) | payer MEDICARE, SELFPAY ==
[2024-08-30 08:21] LABS: Basophils # 0.1 10^3/uL (0.0-0.1); Basophils % 0.8 %; Eosinophils # 0.2 10^3/uL (0.0-0.8); Eosinophils % 2.5 %; Hematocrit 49.2 % (37-53); Lymphocytes # 1.3 10^3/uL (0.8-4.8); Lymphocytes % 20.9 %; Mean Corpuscular Hemoglobin 20.5 pg (27-33); Mean Platelet Volume 9.6 fL (7.4-10.4); Monocytes # 0.5 10^3/uL (0.2-0.9); Monocytes % 8.6 %; Neutrophils # 4.07 10^3/uL (1.8-7.7); Neutrophils % 66.9 %; Nucleated Red Blood Cells % 0 %; Platelet Count 244 10^3/cmm (157-399); Red Blood Count 6.74 10^6/uL (3.85-5.65); Red Cell Distribution Width 20.3 % (12.1-15.1); White Blood Count 6.08 10^3/uL (3.29-11.43)
[2024-08-30 08:32] LABS: Ammonia 34 umol/L (16-60)
[2024-08-30 08:33] LABS: Alanine Aminotransferase 28 U/L (0-41); Albumin Level 4.4 g/dL (3.5-5.2); Alkaline Phosphatase 44 U/L (40-130); Aspartate Amino Transferase 35 U/L (0-40); Blood Urea Nitrogen 21 mg/dL (6-20); Calcium 8.8 mg/dL (8.5-10.5); Carbon Dioxide 25 mmol/L (22-29); Chloride 101 mmol/L (98-107); Globulin 2.1 g/dL (1.3-4.6); Glomerular Filtration Rate 30.1 mL/min (90-130); Glucose 98 mg/dL (65-115); Osmolality Calculated 289 mOsm/kg (285-295); Sodium 138 mmol/L (136-145); Total Bilirubin 0.4 mg/dL (0.15-1.2); Total Protein 6.5 g/dL (6.6-8.7)
[2024-08-30 08:46] LABS: Creatine Phosphokinase 518 U/L (39-308)
== END 2024-08-30 07:47 | disposition home or self-care (01) ==
LOC: LAB 07:49
PROVIDERS: PCP Family Medicine; Visit Provider Family Medicine
DX: E74.04 McArdle disease (principal)
CPT/HCPCS: 80053; 82140; 82550; 85025

== ENCOUNTER 2024-09-07 12:42 | Outpatient (CLI) | payer MEDICARE, SELFPAY ==
[2024-09-07 13:44] LABS: Basophils # 0.1 10^3/uL (0.0-0.1); Basophils % 0.7 %; Eosinophils # 0.2 10^3/uL (0.0-0.8); Eosinophils % 2.1 %; Hematocrit 51.3 % (37-53); Lymphocytes # 1.4 10^3/uL (0.8-4.8); Mean Corpuscular HGB Conc 28.7 g/dL (30-55); Mean Corpuscular Hemoglobin 21.6 pg (27-33); Mean Corpuscular Volume 75.3 fl (82-101); Mean Platelet Volume 9.5 fL (7.4-10.4); Monocytes # 0.5 10^3/uL (0.2-0.9); Monocytes % 7.5 %; Neutrophils # 4.92 10^3/uL (1.8-7.7); Neutrophils % 69.3 %; Nucleated Red Blood Cells % 0 %; Platelet Count 199 10^3/cmm (157-399); Red Blood Count 6.81 10^6/uL (3.85-5.65)
[2024-09-07 14:02] LABS: Alanine Aminotransferase 20 U/L (0-41); Albumin Level 4.7 g/dL (3.5-5.2); Alkaline Phosphatase 46 U/L (40-130); Ammonia 20 umol/L (16-60); Aspartate Amino Transferase 21 U/L (0-40); Blood Urea Nitrogen 16 mg/dL (6-20); Calcium 9.2 mg/dL (8.5-10.5); Carbon Dioxide 25 mmol/L (22-29); Chloride 101 mmol/L (98-107); Creatine Phosphokinase 178 U/L (39-308); Globulin 1.6 g/dL (1.3-4.6); Glomerular Filtration Rate 33.5 mL/min (90-130); Glucose 90 mg/dL (65-115); Osmolality Calculated 285 mOsm/kg (285-295); Sodium 137 mmol/L (136-145); Total Bilirubin 0.4 mg/dL (0.15-1.2); Total Protein 6.3 g/dL (6.6-8.7)
== END 2024-09-07 12:43 | disposition home or self-care (01) ==
LOC: LAB 12:43
PROVIDERS: PCP Family Medicine; Visit Provider Family Medicine
DX: E74.04 McArdle disease (principal)
CPT/HCPCS: 36415; 80053; 82140; 82550; 85025

== ENCOUNTER 2024-09-15 07:59 | Outpatient (CLI) | payer MEDICARE, SELFPAY ==
[2024-09-15 08:30] LABS: Basophils % 0.7 %; Eosinophils # 0.1 10^3/uL (0.0-0.8); Eosinophils % 1.6 %; Hematocrit 52.9 % (37-53); Lymphocytes # 1.2 10^3/uL (0.8-4.8); Lymphocytes % 21.5 %; Mean Corpuscular HGB Conc 30.1 g/dL (30-55); Mean Corpuscular Hemoglobin 22.8 pg (27-33); Mean Platelet Volume 9.9 fL (7.4-10.4); Monocytes # 0.5 10^3/uL (0.2-0.9); Monocytes % 8.8 %; Neutrophils # 3.89 10^3/uL (1.8-7.7); Neutrophils % 67.2 %; Nucleated Red Blood Cells % 0 %; Platelet Count 200 10^3/cmm (157-399); Red Blood Count 6.96 10^6/uL (3.85-5.65); Red Cell Distribution Width 24.8 % (12.1-15.1); White Blood Count 5.78 10^3/uL (3.29-11.43)
[2024-09-15 08:52] LABS: Blood Urea Nitrogen 19 mg/dL (6-20); Carbon Dioxide 22 mmol/L (22-29); Chloride 103 mmol/L (98-107); Glomerular Filtration Rate 33.5 mL/min (90-130); Sodium 136 mmol/L (136-145)
[2024-09-15 08:53] LABS: Alanine Aminotransferase 20 U/L (0-41); Albumin Level 4.5 g/dL (3.5-5.2); Alkaline Phosphatase 46 U/L (40-130); Aspartate Amino Transferase 21 U/L (0-40); Calcium 9.6 mg/dL (8.5-10.5); Creatine Phosphokinase 230 U/L (39-308); Globulin 2.2 g/dL (1.3-4.6); Glucose 93 mg/dL (65-115); Osmolality Calculated 284 mOsm/kg (285-295); Total Bilirubin 0.6 mg/dL (0.15-1.2); Total Protein 6.7 g/dL (6.6-8.7)
[2024-09-15 08:54] LABS: Ammonia 46 umol/L (16-60)
== END 2024-09-15 08:00 | disposition home or self-care (01) ==
LOC: LAB 08:03
PROVIDERS: PCP Family Medicine; Visit Provider Family Medicine
DX: E74.04 McArdle disease (principal)
CPT/HCPCS: 36415; 80053; 82140; 82550; 85025

== ENCOUNTER 2024-09-20 08:24 | Outpatient (CLI) | payer MEDICARE, SELFPAY ==
[2024-09-20 08:59] LABS: Basophils # 0.1 10^3/uL (0.0-0.1); Basophils % 0.8 %; Eosinophils # 0.2 10^3/uL (0.0-0.8); Eosinophils % 3.1 %; Hematocrit 55.2 % (37-53); Lymphocytes # 1.5 10^3/uL (0.8-4.8); Lymphocytes % 25.1 %; Mean Corpuscular HGB Conc 28.4 g/dL (30-55); Mean Corpuscular Hemoglobin 22.9 pg (27-33); Mean Corpuscular Volume 80.6 fl (82-101); Mean Platelet Volume 9.8 fL (7.4-10.4); Monocytes # 0.5 10^3/uL (0.2-0.9); Monocytes % 8.1 %; Neutrophils # 3.69 10^3/uL (1.8-7.7); Neutrophils % 62.6 %; Nucleated Red Blood Cells % 0 %; Platelet Count 194 10^3/cmm (157-399); Red Blood Count 6.85 10^6/uL (3.85-5.65); Red Cell Distribution Width 24.7 % (12.1-15.1)
[2024-09-20 09:02] LABS: Ammonia 58 umol/L (16-60)
[2024-09-20 09:09] LABS: Alanine Aminotransferase 24 U/L (0-41); Albumin Level 4.6 g/dL (3.5-5.2); Alkaline Phosphatase 46 U/L (40-130); Anion Gap 15.2 (5-19); Aspartate Amino Transferase 26 U/L (0-40); Blood Urea Nitrogen 16 mg/dL (6-20); Calcium 9.1 mg/dL (8.5-10.5); Carbon Dioxide 22 mmol/L (22-29); Chloride 103 mmol/L (98-107); Creatine Phosphokinase 305 U/L (39-308); Globulin 1.6 g/dL (1.3-4.6); Glomerular Filtration Rate 33.5 mL/min (90-130); Glucose 104 mg/dL (65-115); Osmolality Calculated 283 mOsm/kg (285-295); Potassium 4.2 mmol/L (3.5-5.1); Sodium 136 mmol/L (136-145); Total Bilirubin 0.5 mg/dL (0.15-1.2); Total Protein 6.2 g/dL (6.6-8.7)
== END 2024-09-20 08:25 | disposition home or self-care (01) ==
PROVIDERS: PCP Family Medicine; Visit Provider Family Medicine
DX: E74.04 McArdle disease (principal)
CPT/HCPCS: 36415; 80053; 82140; 82550; 85025

== ENCOUNTER 2024-09-28 11:59 | Outpatient (CLI) | payer MEDICARE, SELFPAY ==
[2024-09-28 12:21] LABS: Basophils % 0.5 %; Eosinophils # 0.3 10^3/uL (0.0-0.8); Eosinophils % 3.3 %; Hematocrit 54.6 % (37-53); Lymphocytes # 1.6 10^3/uL (0.8-4.8); Lymphocytes % 20.4 %; Mean Corpuscular Hemoglobin 24.2 pg (27-33); Mean Corpuscular Volume 80.4 fl (82-101); Mean Platelet Volume 9.8 fL (7.4-10.4); Monocytes # 0.7 10^3/uL (0.2-0.9); Monocytes % 9.1 %; Neutrophils # 5.04 10^3/uL (1.8-7.7); Neutrophils % 66.4 %; Nucleated Red Blood Cells % 0 %; Platelet Count 192 10^3/cmm (157-399); Red Blood Count 6.79 10^6/uL (3.85-5.65); Red Cell Distribution Width 24.8 % (12.1-15.1); White Blood Count 7.59 10^3/uL (3.29-11.43)
[2024-09-28 12:38] LABS: Alanine Aminotransferase 24 U/L (0-41); Albumin Level 4.3 g/dL (3.5-5.2); Alkaline Phosphatase 49 U/L (40-130); Anion Gap 14.7 (5-19); Aspartate Amino Transferase 25 U/L (0-40); Blood Urea Nitrogen 14 mg/dL (6-20); Calcium 8.9 mg/dL (8.5-10.5); Carbon Dioxide 24 mmol/L (22-29); Chloride 100 mmol/L (98-107); Glomerular Filtration Rate 37.6 mL/min (90-130); Glucose 98 mg/dL (65-115); Osmolality Calculated 280 mOsm/kg (285-295); Potassium 3.7 mmol/L (3.5-5.1); Sodium 135 mmol/L (136-145); Total Bilirubin 0.5 mg/dL (0.15-1.2); Total Protein 6.3 g/dL (6.6-8.7)
[2024-09-28 12:40] LABS: Ammonia 43 umol/L (16-60)
[2024-09-28 13:15] LABS: Creatine Phosphokinase 342 U/L (39-308)
== END 2024-09-28 12:00 | disposition home or self-care (01) ==
LOC: LAB 12:03
PROVIDERS: PCP Family Medicine; Visit Provider Family Medicine
DX: E74.04 McArdle disease (principal)
CPT/HCPCS: 36415; 80053; 82140; 82550; 85025

== ENCOUNTER 2024-10-05 12:25 | Outpatient (CLI) | payer MEDICARE, SELFPAY ==
[2024-10-05 13:17] LABS: Basophils % 0.7 %; Eosinophils # 0.2 10^3/uL (0.0-0.8); Eosinophils % 3.6 %; Hematocrit 51.7 % (37-53); Lymphocytes # 1.3 10^3/uL (0.8-4.8); Lymphocytes % 23.1 %; Mean Corpuscular HGB Conc 29.8 g/dL (30-55); Mean Corpuscular Volume 80.7 fl (82-101); Mean Platelet Volume 9.7 fL (7.4-10.4); Monocytes # 0.6 10^3/uL (0.2-0.9); Monocytes % 10.1 %; Neutrophils % 62.3 %; Nucleated Red Blood Cells % 0 %; Platelet Count 163 10^3/cmm (157-399); Red Blood Count 6.41 10^6/uL (3.85-5.65); Red Cell Distribution Width 24.8 % (12.1-15.1); White Blood Count 5.62 10^3/uL (3.29-11.43)
[2024-10-05 13:35] LABS: Alanine Aminotransferase 27 U/L (0-41); Alkaline Phosphatase 45 U/L (40-130); Anion Gap 13.8 (5-19); Aspartate Amino Transferase 28 U/L (0-40); Blood Urea Nitrogen 14 mg/dL (6-20); Carbon Dioxide 23 mmol/L (22-29); Chloride 104 mmol/L (98-107); Globulin 1.8 g/dL (1.3-4.6); Glomerular Filtration Rate 31.7 mL/min (90-130); Glucose 79 mg/dL (65-115); Osmolality Calculated 283 mOsm/kg (285-295); Potassium 3.8 mmol/L (3.5-5.1); Sodium 137 mmol/L (136-145); Total Bilirubin 0.4 mg/dL (0.15-1.2); Total Protein 5.8 g/dL (6.6-8.7)
[2024-10-05 13:36] LABS: Ammonia 38 umol/L (16-60)
[2024-10-05 14:31] LABS: Creatine Phosphokinase 359 U/L (39-308)
== END 2024-10-05 12:26 | disposition home or self-care (01) ==
PROVIDERS: PCP Family Medicine; Visit Provider Family Medicine
DX: E74.04 McArdle disease (principal)
CPT/HCPCS: 36415; 80053; 82140; 82550; 85025

== ENCOUNTER 2024-10-11 07:20 | Outpatient (CLI) | payer MEDICARE, SELFPAY ==
[2024-10-11 09:35] LABS: Basophils % 0.7 %; Eosinophils # 0.1 10^3/uL (0.0-0.8); Eosinophils % 1.7 %; Hematocrit 56.5 % (37-53); Lymphocytes # 1.3 10^3/uL (0.8-4.8); Lymphocytes % 20.7 %; Mean Corpuscular HGB Conc 30.6 g/dL (30-55); Mean Corpuscular Hemoglobin 24.5 pg (27-33); Mean Corpuscular Volume 79.9 fl (82-101); Mean Platelet Volume 10.5 fL (7.4-10.4); Monocytes # 0.5 10^3/uL (0.2-0.9); Monocytes % 8.4 %; Neutrophils # 4.12 10^3/uL (1.8-7.7); Neutrophils % 68.2 %; Nucleated Red Blood Cells % 0 %; Platelet Count 194 10^3/cmm (157-399); Red Blood Count 7.07 10^6/uL (3.85-5.65); Red Cell Distribution Width 24.5 % (12.1-15.1); White Blood Count 6.04 10^3/uL (3.29-11.43)
[2024-10-11 10:29] LABS: Alanine Aminotransferase 26 U/L (0-41); Albumin Level 4.5 g/dL (3.5-5.2); Alkaline Phosphatase 55 U/L (40-130); Anion Gap 16.5 (5-19); Aspartate Amino Transferase 24 U/L (0-40); Blood Urea Nitrogen 24 mg/dL (6-20); Calcium 9.4 mg/dL (8.5-10.5); Carbon Dioxide 24 mmol/L (22-29); Chloride 101 mmol/L (98-107); Chol HDL Ratio 2.64 mg/dL (1.0-5.00); Cholesterol 111 mg/dL (0-200); Globulin 2.3 g/dL (1.3-4.6); Glomerular Filtration Rate 30.1 mL/min (90-130); Glucose 95 mg/dL (65-115); HDL Cholesterol 42 mg/dL (60-100); LDL Cholesterol Calculated 52 mg/dL (50-129); LDL HDL Ratio 1.24 RATIO (0.00-3.22); Osmolality Calculated 290 mOsm/kg (285-295); Potassium 3.5 mmol/L (3.5-5.1); Prostate Specific Antigen Scr 1.69 ng/mL (0-4); Sodium 138 mmol/L (136-145); Testosterone Total 725.3 ng/dL (193-740); Thyroid Stimulating Hormone 0.28 uIU/mL (0.27-4.20); Total Bilirubin 0.5 mg/dL (0.15-1.2); Total Protein 6.8 g/dL (6.6-8.7); Triglycerides 87 mg/dL (0-150)
[2024-10-11 10:50] LABS: Iron 73 ug/dL (59-158); Total Iron Binding Capacity 347 mcg/dl; Unsaturated Iron Binding 274 ug/dL (112-347)
[2024-10-11 14:12] LABS: Creatine Phosphokinase 231 U/L (39-308)
== END 2024-10-11 07:21 | disposition home or self-care (01) ==
PROVIDERS: PCP Family Medicine; Visit Provider Family Medicine
DX: I10 Essential (primary) hypertension (principal); Z12.5 Encounter for screening for malignant neoplasm of prostate
CPT/HCPCS: 80053; 80061; 82550; 83540; 83550; 84403; 84443; 85025; G0103

== ENCOUNTER 2024-10-18 07:10 | Outpatient (CLI) | payer MEDICARE, SELFPAY ==
[2024-10-18 07:31] LABS: Basophils # 0.1 10^3/uL (0.0-0.1); Basophils % 0.8 %; Eosinophils # 0.2 10^3/uL (0.0-0.8); Eosinophils % 3.9 %; Hematocrit 55.2 % (37-53); Lymphocytes # 1.4 10^3/uL (0.8-4.8); Lymphocytes % 22.4 %; Mean Corpuscular HGB Conc 30.4 g/dL (30-55); Mean Corpuscular Hemoglobin 25.2 pg (27-33); Mean Corpuscular Volume 82.9 fl (82-101); Mean Platelet Volume 9.8 fL (7.4-10.4); Monocytes # 0.5 10^3/uL (0.2-0.9); Monocytes % 8.4 %; Neutrophils # 3.99 10^3/uL (1.8-7.7); Neutrophils % 64.2 %; Nucleated Red Blood Cells % 0 %; Platelet Count 185 10^3/cmm (157-399); Red Blood Count 6.66 10^6/uL (3.85-5.65); White Blood Count 6.21 10^3/uL (3.29-11.43)
[2024-10-18 07:48] LABS: Alanine Aminotransferase 24 U/L (0-41); Albumin Level 4.1 g/dL (3.5-5.2); Alkaline Phosphatase 52 U/L (40-130); Anion Gap 14.8 (5-19); Aspartate Amino Transferase 35 U/L (0-40); Blood Urea Nitrogen 18 mg/dL (6-20); Calcium 8.6 mg/dL (8.5-10.5); Carbon Dioxide 22 mmol/L (22-29); Chloride 103 mmol/L (98-107); Globulin 1.9 g/dL (1.3-4.6); Glomerular Filtration Rate 27.4 mL/min (90-130); Glucose 90 mg/dL (65-115); Osmolality Calculated 283 mOsm/kg (285-295); Potassium 3.8 mmol/L (3.5-5.1); Sodium 136 mmol/L (136-145); Total Bilirubin 0.5 mg/dL (0.15-1.2)
[2024-10-18 07:50] LABS: Ammonia 48 umol/L (16-60)
[2024-10-18 10:20] LABS: Creatine Phosphokinase 844 U/L (39-308)
== END 2024-10-18 07:11 | disposition home or self-care (01) ==
LOC: LAB 07:14
PROVIDERS: PCP Family Medicine; Visit Provider Family Medicine
DX: E74.04 McArdle disease (principal)
CPT/HCPCS: 80053; 82140; 82550; 85025

== ENCOUNTER 2024-10-25 07:14 | Outpatient (CLI) | payer MEDICARE, SELFPAY ==
[2024-10-25 07:43] LABS: Basophils % 0.4 %; Eosinophils # 0.3 10^3/uL (0.0-0.8); Eosinophils % 5.8 %; Hematocrit 55.4 % (37-53); Lymphocytes % 17.6 %; Mean Corpuscular HGB Conc 30.7 g/dL (30-55); Mean Corpuscular Hemoglobin 25.3 pg (27-33); Mean Corpuscular Volume 82.6 fl (82-101); Mean Platelet Volume 9.5 fL (7.4-10.4); Monocytes # 0.5 10^3/uL (0.2-0.9); Monocytes % 9.6 %; Neutrophils # 3.58 10^3/uL (1.8-7.7); Neutrophils % 66.4 %; Nucleated Red Blood Cells % 0 %; Platelet Count 157 10^3/cmm (157-399); Red Blood Count 6.71 10^6/uL (3.85-5.65); Red Cell Distribution Width 23.1 % (12.1-15.1); White Blood Count 5.39 10^3/uL (3.29-11.43)
[2024-10-25 07:59] LABS: Ammonia 41 umol/L (16-60)
[2024-10-25 08:01] LABS: Alanine Aminotransferase 34 U/L (0-41); Albumin Level 4.1 g/dL (3.5-5.2); Alkaline Phosphatase 54 U/L (40-130); Anion Gap 15.6 (5-19); Aspartate Amino Transferase 37 U/L (0-40); Blood Urea Nitrogen 16 mg/dL (6-20); Calcium 8.8 mg/dL (8.5-10.5); Carbon Dioxide 25 mmol/L (22-29); Chloride 102 mmol/L (98-107); Globulin 2.3 g/dL (1.3-4.6); Glomerular Filtration Rate 35.4 mL/min (90-130); Glucose 111 mg/dL (65-115); Osmolality Calculated 290 mOsm/kg (285-295); Potassium 3.6 mmol/L (3.5-5.1); Sodium 139 mmol/L (136-145); Total Bilirubin 0.3 mg/dL (0.15-1.2); Total Protein 6.4 g/dL (6.6-8.7)
[2024-10-25 09:17] LABS: Creatine Phosphokinase 380 U/L (39-308)
== END 2024-10-25 07:15 | disposition home or self-care (01) ==
LOC: LAB 07:17
PROVIDERS: PCP Family Medicine; Visit Provider Family Medicine
DX: E74.04 McArdle disease (principal)
CPT/HCPCS: 36415; 80053; 82140; 82550; 85025

== ENCOUNTER 2024-11-02 12:16 | Outpatient (CLI) | payer MEDICARE, SELFPAY ==
[2024-11-02 13:04] LABS: Ammonia 43 umol/L (16-60)
[2024-11-02 13:05] LABS: Alanine Aminotransferase 24 U/L (0-41); Albumin Level 4.3 g/dL (3.5-5.2); Alkaline Phosphatase 50 U/L (40-130); Anion Gap 16.6 (5-19); Aspartate Amino Transferase 24 U/L (0-40); Blood Urea Nitrogen 14 mg/dL (6-20); Calcium 9.3 mg/dL (8.5-10.5); Carbon Dioxide 21 mmol/L (22-29); Chloride 102 mmol/L (98-107); Creatine Phosphokinase 200 U/L (39-308); Globulin 2.4 g/dL (1.3-4.6); Glucose 81 mg/dL (65-115); Osmolality Calculated 282 mOsm/kg (285-295); Potassium 3.6 mmol/L (3.5-5.1); Sodium 136 mmol/L (136-145); Total Bilirubin 0.4 mg/dL (0.15-1.2); Total Protein 6.7 g/dL (6.6-8.7)
[2024-11-02 13:06] LABS: Basophils % 0.6 %; Eosinophils # 0.1 10^3/uL (0.0-0.8); Eosinophils % 1.5 %; Hematocrit 54.9 % (37-53); Lymphocytes # 0.6 10^3/uL (0.8-4.8); Lymphocytes % 10.6 %; Mean Corpuscular HGB Conc 31.7 g/dL (30-55); Mean Corpuscular Hemoglobin 26.4 pg (27-33); Mean Corpuscular Volume 83.4 fl (82-101); Mean Platelet Volume 9.4 fL (7.4-10.4); Monocytes # 0.7 10^3/uL (0.2-0.9); Monocytes % 12.8 %; Neutrophils % 74.3 %; Nucleated Red Blood Cells % 0 %; Platelet Count 144 10^3/cmm (157-399); Red Blood Count 6.58 10^6/uL (3.85-5.65); Red Cell Distribution Width 21.6 % (12.1-15.1); White Blood Count 5.38 10^3/uL (3.29-11.43)
== END 2024-11-02 12:17 | disposition home or self-care (01) ==
LOC: LAB 12:21
PROVIDERS: PCP Family Medicine; Visit Provider Family Medicine
DX: E74.04 McArdle disease (principal)
CPT/HCPCS: 36415; 80053; 82140; 82550; 85025

== ENCOUNTER 2024-11-08 06:56 | Outpatient (CLI) | payer MEDICARE, SELFPAY ==
[2024-11-08 07:26] LABS: Basophils % 0.2 %; Eosinophils % 0.2 %; Hematocrit 58.2 % (37-53); Lymphocytes # 1.1 10^3/uL (0.8-4.8); Lymphocytes % 21.6 %; Mean Corpuscular HGB Conc 30.9 g/dL (30-55); Mean Corpuscular Hemoglobin 25.9 pg (27-33); Mean Corpuscular Volume 83.7 fl (82-101); Mean Platelet Volume 9.7 fL (7.4-10.4); Monocytes # 0.4 10^3/uL (0.2-0.9); Monocytes % 8.3 %; Neutrophils % 69.5 %; Nucleated Red Blood Cells % 0 %; Platelet Count 179 10^3/cmm (157-399); Red Blood Count 6.95 10^6/uL (3.85-5.65); Red Cell Distribution Width 20.5 % (12.1-15.1); White Blood Count 5.04 10^3/uL (3.29-11.43)
[2024-11-08 07:43] LABS: Alanine Aminotransferase 20 U/L (0-41); Albumin Level 4.2 g/dL (3.5-5.2); Alkaline Phosphatase 56 U/L (40-130); Anion Gap 17.8 (5-19); Aspartate Amino Transferase 21 U/L (0-40); Blood Urea Nitrogen 23 mg/dL (6-20); Carbon Dioxide 20 mmol/L (22-29); Chloride 103 mmol/L (98-107); Creatine Phosphokinase 147 U/L (39-308); Globulin 2.2 g/dL (1.3-4.6); Glomerular Filtration Rate 37.6 mL/min (90-130); Glucose 127 mg/dL (65-115); Osmolality Calculated 289 mOsm/kg (285-295); Potassium 3.8 mmol/L (3.5-5.1); Sodium 137 mmol/L (136-145); Total Bilirubin 0.5 mg/dL (0.15-1.2); Total Protein 6.4 g/dL (6.6-8.7)
[2024-11-08 07:44] LABS: Ammonia 28 umol/L (16-60)
== END 2024-11-08 06:57 | disposition home or self-care (01) ==
PROVIDERS: PCP Family Medicine; Visit Provider Family Medicine
DX: Z01.89 Encounter for other specified special examinations (principal)
CPT/HCPCS: 36415; 80053; 82140; 82550; 85025

== ENCOUNTER 2024-11-15 07:21 | Outpatient (CLI) | payer MEDICARE, SELFPAY ==
[2024-11-15 07:49] LABS: Basophils % 0.6 %; Eosinophils # 0.1 10^3/uL (0.0-0.8); Hematocrit 60.2 % (37-53); Lymphocytes # 1.7 10^3/uL (0.8-4.8); Lymphocytes % 23.9 %; Mean Corpuscular HGB Conc 31.1 g/dL (30-55); Mean Corpuscular Hemoglobin 26.7 pg (27-33); Mean Corpuscular Volume 85.9 fl (82-101); Mean Platelet Volume 9.4 fL (7.4-10.4); Monocytes # 0.6 10^3/uL (0.2-0.9); Monocytes % 8.7 %; Neutrophils % 64.5 %; Nucleated Red Blood Cells % 0 %; Platelet Count 209 10^3/cmm (157-399); Red Blood Count 7.01 10^6/uL (3.85-5.65); Red Cell Distribution Width 18.9 % (12.1-15.1); White Blood Count 7.12 10^3/uL (3.29-11.43)
[2024-11-15 07:59] LABS: Ammonia 31 umol/L (16-60)
[2024-11-15 08:09] LABS: Alanine Aminotransferase 24 U/L (0-41); Albumin Level 4.3 g/dL (3.5-5.2); Alkaline Phosphatase 51 U/L (40-130); Anion Gap 19.1 (5-19); Aspartate Amino Transferase 28 U/L (0-40); Blood Urea Nitrogen 22 mg/dL (6-20); Calcium 9.4 mg/dL (8.5-10.5); Carbon Dioxide 18 mmol/L (22-29); Chloride 104 mmol/L (98-107); Creatine Phosphokinase 226 U/L (39-308); Globulin 2.2 g/dL (1.3-4.6); Glomerular Filtration Rate 35.4 mL/min (90-130); Glucose 95 mg/dL (65-115); Osmolality Calculated 287 mOsm/kg (285-295); Potassium 4.1 mmol/L (3.5-5.1); Sodium 137 mmol/L (136-145); Total Bilirubin 0.6 mg/dL (0.15-1.2); Total Protein 6.5 g/dL (6.6-8.7)
== END 2024-11-15 07:22 | disposition home or self-care (01) ==
LOC: LAB 07:24
PROVIDERS: PCP Family Medicine; Visit Provider Family Medicine
DX: E74.04 McArdle disease (principal)
CPT/HCPCS: 36415; 80053; 82140; 82550; 85025

== ENCOUNTER 2024-11-22 15:09 | Outpatient (CLI) | payer MEDICARE, SELFPAY ==
[2024-11-22 15:50] LABS: Basophils % 0.5 %; Eosinophils # 0.1 10^3/uL (0.0-0.8); Eosinophils % 1.6 %; Hematocrit 58.4 % (37-53); Lymphocytes # 1.9 10^3/uL (0.8-4.8); Lymphocytes % 23.6 %; Mean Corpuscular Hemoglobin 26.4 pg (27-33); Mean Corpuscular Volume 82.6 fl (82-101); Mean Platelet Volume 9.5 fL (7.4-10.4); Monocytes # 0.6 10^3/uL (0.2-0.9); Monocytes % 7.5 %; Neutrophils # 5.33 10^3/uL (1.8-7.7); Neutrophils % 66.6 %; Nucleated Red Blood Cells % 0 %; Platelet Count 197 10^3/cmm (157-399); Red Blood Count 7.07 10^6/uL (3.85-5.65); Red Cell Distribution Width 17.7 % (12.1-15.1); White Blood Count 8.01 10^3/uL (3.29-11.43)
[2024-11-22 16:13] LABS: Ammonia 52 umol/L (16-60)
[2024-11-22 16:22] LABS: Alanine Aminotransferase 31 U/L (0-41); Albumin Level 4.2 g/dL (3.5-5.2); Alkaline Phosphatase 56 U/L (40-130); Aspartate Amino Transferase 33 U/L (0-40); Blood Urea Nitrogen 17 mg/dL (6-20); Calcium 9.4 mg/dL (8.5-10.5); Carbon Dioxide 21 mmol/L (22-29); Chloride 101 mmol/L (98-107); Creatine Phosphokinase 216 U/L (39-308); Globulin 2.5 g/dL (1.3-4.6); Glomerular Filtration Rate 37.6 mL/min (90-130); Glucose 84 mg/dL (65-115); Osmolality Calculated 285 mOsm/kg (285-295); Sodium 137 mmol/L (136-145); Total Bilirubin 0.4 mg/dL (0.15-1.2); Total Protein 6.7 g/dL (6.6-8.7)
[2024-11-22 16:25] LABS: Anion Gap 18.8 (5-19); Potassium 3.8 mmol/L (3.5-5.1)
== END 2024-11-22 15:10 | disposition home or self-care (01) ==
LOC: LAB 15:12
PROVIDERS: PCP Family Medicine; Visit Provider Family Medicine
DX: E74.04 McArdle disease (principal)
CPT/HCPCS: 80053; 82140; 82550; 85025

== ENCOUNTER 2024-11-29 07:50 | Outpatient (CLI) | payer MEDICARE, SELFPAY ==
[2024-11-29 08:16] LABS: Basophils % 0.4 %; Eosinophils # 0.2 10^3/uL (0.0-0.8); Eosinophils % 2.3 %; Hematocrit 61.4 % (37-53); Lymphocytes # 1.3 10^3/uL (0.8-4.8); Lymphocytes % 18.3 %; Mean Corpuscular HGB Conc 31.4 g/dL (30-55); Mean Corpuscular Hemoglobin 27.2 pg (27-33); Mean Corpuscular Volume 86.6 fl (82-101); Mean Platelet Volume 9.2 fL (7.4-10.4); Monocytes # 0.5 10^3/uL (0.2-0.9); Monocytes % 7.6 %; Neutrophils # 4.94 10^3/uL (1.8-7.7); Neutrophils % 71.1 %; Nucleated Red Blood Cells % 0 %; Platelet Count 161 10^3/cmm (157-399); Red Blood Count 7.09 10^6/uL (3.85-5.65); Red Cell Distribution Width 17.8 % (12.1-15.1); White Blood Count 6.95 10^3/uL (3.29-11.43)
[2024-11-29 08:30] LABS: Ammonia 42 umol/L (16-60)
[2024-11-29 08:32] LABS: Alanine Aminotransferase 29 U/L (0-41); Albumin Level 4.3 g/dL (3.5-5.2); Alkaline Phosphatase 60 U/L (40-130); Anion Gap 17.2 (5-19); Aspartate Amino Transferase 31 U/L (0-40); Blood Urea Nitrogen 16 mg/dL (6-20); Calcium 9.9 mg/dL (8.5-10.5); Carbon Dioxide 25 mmol/L (22-29); Chloride 100 mmol/L (98-107); Creatine Phosphokinase 315 U/L (39-308); Globulin 2.2 g/dL (1.3-4.6); Glomerular Filtration Rate 30.1 mL/min (90-130); Glucose 118 mg/dL (65-115); Osmolality Calculated 288 mOsm/kg (285-295); Potassium 4.2 mmol/L (3.5-5.1); Sodium 138 mmol/L (136-145); Total Bilirubin 0.4 mg/dL (0.15-1.2); Total Protein 6.5 g/dL (6.6-8.7)
== END 2024-11-29 07:51 | disposition home or self-care (01) ==
LOC: LAB 07:53
PROVIDERS: PCP Family Medicine; Visit Provider Family Medicine
DX: E74.04 McArdle disease (principal)
CPT/HCPCS: 36415; 80053; 82140; 82550; 85025

== ENCOUNTER 2024-12-06 10:53 | Outpatient (CLI) | payer MEDICARE, SELFPAY ==
[2024-12-06 11:16] LABS: Basophils # 0.1 10^3/uL (0.0-0.1); Basophils % 0.8 %; Eosinophils # 0.1 10^3/uL (0.0-0.8); Eosinophils % 1.7 %; Hematocrit 59.2 % (37-53); Lymphocytes # 1.4 10^3/uL (0.8-4.8); Lymphocytes % 21.7 %; Mean Corpuscular HGB Conc 32.3 g/dL (30-55); Mean Corpuscular Hemoglobin 27.6 pg (27-33); Mean Corpuscular Volume 85.5 fl (82-101); Mean Platelet Volume 9.2 fL (7.4-10.4); Monocytes # 0.6 10^3/uL (0.2-0.9); Monocytes % 9.3 %; Neutrophils # 4.27 10^3/uL (1.8-7.7); Neutrophils % 66.2 %; Nucleated Red Blood Cells % 0 %; Platelet Count 176 10^3/cmm (157-399); Red Blood Count 6.92 10^6/uL (3.85-5.65); Red Cell Distribution Width 17.2 % (12.1-15.1); White Blood Count 6.45 10^3/uL (3.29-11.43)
[2024-12-06 11:35] LABS: Alanine Aminotransferase 28 U/L (0-41); Albumin Level 4.4 g/dL (3.5-5.2); Alkaline Phosphatase 64 U/L (40-130); Anion Gap 17.2 (5-19); Aspartate Amino Transferase 25 U/L (0-40); Blood Urea Nitrogen 18 mg/dL (6-20); Calcium 9.5 mg/dL (8.5-10.5); Carbon Dioxide 22 mmol/L (22-29); Chloride 102 mmol/L (98-107); Creatine Phosphokinase 190 U/L (39-308); Globulin 2.3 g/dL (1.3-4.6); Glucose 97 mg/dL (65-115); Osmolality Calculated 286 mOsm/kg (285-295); Potassium 4.2 mmol/L (3.5-5.1); Sodium 137 mmol/L (136-145); Total Bilirubin 0.3 mg/dL (0.15-1.2); Total Protein 6.7 g/dL (6.6-8.7)
[2024-12-06 11:36] LABS: Ammonia 36 umol/L (16-60)
== END 2024-12-06 10:54 | disposition home or self-care (01) ==
PROVIDERS: PCP Family Medicine; Visit Provider Family Medicine
DX: E74.04 McArdle disease (principal)
CPT/HCPCS: 36415; 80053; 82140; 82550; 85025

== ENCOUNTER 2024-12-13 07:15 | Outpatient (CLI) | payer MEDICARE, SELFPAY ==
[2024-12-13 07:43] LABS: Basophils % 0.4 %; Eosinophils # 0.1 10^3/uL (0.0-0.8); Eosinophils % 1.5 %; Hematocrit 61.3 % (37-53); Lymphocytes # 1.4 10^3/uL (0.8-4.8); Lymphocytes % 20.4 %; Mean Corpuscular HGB Conc 32.3 g/dL (30-55); Mean Corpuscular Hemoglobin 27.9 pg (27-33); Mean Corpuscular Volume 86.3 fl (82-101); Mean Platelet Volume 9.4 fL (7.4-10.4); Monocytes # 0.5 10^3/uL (0.2-0.9); Monocytes % 7.6 %; Neutrophils # 4.78 10^3/uL (1.8-7.7); Neutrophils % 69.8 %; Nucleated Red Blood Cells % 0 %; Platelet Count 186 10^3/cmm (157-399); Red Cell Distribution Width 17.1 % (12.1-15.1); White Blood Count 6.85 10^3/uL (3.29-11.43)
[2024-12-13 07:59] LABS: Ammonia 36 umol/L (16-60)
[2024-12-13 08:05] LABS: Alanine Aminotransferase 27 U/L (0-41); Albumin Level 4.4 g/dL (3.5-5.2); Alkaline Phosphatase 51 U/L (40-130); Anion Gap 16.2 (5-19); Aspartate Amino Transferase 25 U/L (0-40); Blood Urea Nitrogen 22 mg/dL (6-20); Calcium 9.4 mg/dL (8.5-10.5); Carbon Dioxide 22 mmol/L (22-29); Chloride 105 mmol/L (98-107); Creatine Phosphokinase 228 U/L (39-308); Globulin 2.1 g/dL (1.3-4.6); Glomerular Filtration Rate 33.5 mL/min (90-130); Glucose 100 mg/dL (65-115); Osmolality Calculated 291 mOsm/kg (285-295); Potassium 4.2 mmol/L (3.5-5.1); Sodium 139 mmol/L (136-145); Total Bilirubin 0.6 mg/dL (0.15-1.2); Total Protein 6.5 g/dL (6.6-8.7)
== END 2024-12-13 07:16 | disposition home or self-care (01) ==
PROVIDERS: PCP Family Medicine; Visit Provider Family Medicine
DX: E74.04 McArdle disease (principal)
CPT/HCPCS: 36415; 80053; 82140; 82550; 85025

== ENCOUNTER 2024-12-20 07:51 | Outpatient (CLI) | payer MEDICARE, SELFPAY ==
[2024-12-20 08:17] LABS: Basophils % 0.5 %; Eosinophils # 0.1 10^3/uL (0.0-0.8); Eosinophils % 1.5 %; Lymphocytes # 1.4 10^3/uL (0.8-4.8); Lymphocytes % 18.5 %; Mean Corpuscular HGB Conc 31.3 g/dL (30-55); Mean Corpuscular Hemoglobin 27.5 pg (27-33); Mean Corpuscular Volume 87.9 fl (82-101); Mean Platelet Volume 9.8 fL (7.4-10.4); Monocytes # 0.6 10^3/uL (0.2-0.9); Monocytes % 8.5 %; Neutrophils % 70.5 %; Nucleated Red Blood Cells % 0 %; Platelet Count 189 10^3/cmm (157-399); Red Blood Count 6.94 10^6/uL (3.85-5.65); Red Cell Distribution Width 16.4 % (12.1-15.1); White Blood Count 7.52 10^3/uL (3.29-11.43)
[2024-12-20 08:36] LABS: Ammonia 36 umol/L (16-60)
[2024-12-20 08:42] LABS: Alanine Aminotransferase 28 U/L (0-41); Albumin Level 4.2 g/dL (3.5-5.2); Alkaline Phosphatase 47 U/L (40-130); Anion Gap 12.9 (5-19); Aspartate Amino Transferase 37 U/L (0-40); Blood Urea Nitrogen 16 mg/dL (6-20); Calcium 9.2 mg/dL (8.5-10.5); Carbon Dioxide 23 mmol/L (22-29); Chloride 105 mmol/L (98-107); Globulin 1.9 g/dL (1.3-4.6); Glomerular Filtration Rate 37.6 mL/min (90-130); Glucose 96 mg/dL (65-115); Osmolality Calculated 285 mOsm/kg (285-295); Potassium 3.9 mmol/L (3.5-5.1); Sodium 137 mmol/L (136-145); Total Bilirubin 0.5 mg/dL (0.15-1.2); Total Protein 6.1 g/dL (6.6-8.7)
[2024-12-20 09:28] LABS: Creatine Phosphokinase 430 U/L (39-308)
== END 2024-12-20 07:52 | disposition home or self-care (01) ==
LOC: LAB 07:55
PROVIDERS: PCP Family Medicine; Visit Provider Family Medicine
DX: E74.04 McArdle disease (principal)
CPT/HCPCS: 36415; 80053; 82140; 82550; 85025

== ENCOUNTER 2024-12-27 08:15 | Outpatient (CLI) | payer MEDICARE, SELFPAY ==
[2024-12-27 08:47] LABS: Basophils % 0.5 %; Eosinophils # 0.1 10^3/uL (0.0-0.8); Eosinophils % 2.3 %; Hematocrit 60.3 % (37-53); Lymphocytes # 1.2 10^3/uL (0.8-4.8); Lymphocytes % 20.6 %; Mean Corpuscular HGB Conc 31.8 g/dL (30-55); Mean Platelet Volume 9.9 fL (7.4-10.4); Monocytes # 0.5 10^3/uL (0.2-0.9); Monocytes % 7.5 %; Neutrophils # 4.13 10^3/uL (1.8-7.7); Neutrophils % 68.8 %; Nucleated Red Blood Cells % 0 %; Platelet Count 148 10^3/cmm (157-399); Red Blood Count 6.85 10^6/uL (3.85-5.65); Red Cell Distribution Width 15.9 % (12.1-15.1); White Blood Count 6.01 10^3/uL (3.29-11.43)
[2024-12-27 09:08] LABS: Alanine Aminotransferase 30 U/L (0-41); Albumin Level 4.4 g/dL (3.5-5.2); Alkaline Phosphatase 58 U/L (40-130); Aspartate Amino Transferase 28 U/L (0-40); Blood Urea Nitrogen 15 mg/dL (6-20); Calcium 9.3 mg/dL (8.5-10.5); Carbon Dioxide 25 mmol/L (22-29); Chloride 103 mmol/L (98-107); Creatine Phosphokinase 316 U/L (39-308); Globulin 2.1 g/dL (1.3-4.6); Glucose 100 mg/dL (65-115); Osmolality Calculated 285 mOsm/kg (285-295); Phosphorus 1.9 mg/dL (2.5-4.5); Sodium 137 mmol/L (136-145); Total Bilirubin 0.4 mg/dL (0.15-1.2); Total Protein 6.5 g/dL (6.6-8.7)
[2024-12-27 09:09] LABS: Ammonia 38 umol/L (16-60); Calcium 9.4 mg/dL (8.5-10.5)
[2024-12-27 09:15] LABS: Creatinine Urine, Random 244 mg/dL (39-259); Microalbumin Random Urine 16 ug/dL (0-20)
[2024-12-27 09:15] LABS: Parathyroid Hormone 48.2 pg/mL (15-65)
[2024-12-27 09:18] LABS: Microalbum Creatinine Ratio Ur 66 mg/dL (0-20)
== END 2024-12-27 08:16 | disposition home or self-care (01) ==
LOC: LAB 08:23
PROVIDERS: PCP Family Medicine; Visit Provider Family Medicine
DX: N18.32 Chronic kidney disease, stage 3b (principal); E74.04 McArdle disease
CPT/HCPCS: 36415; 80053; 80069; 82044; 82140; 82310; 82550; 83970; 85025

== ENCOUNTER 2025-01-04 12:15 | Outpatient (CLI) | payer MEDICARE, SELFPAY ==
[2025-01-04 12:32] LABS: Basophils % 0.6 %; Eosinophils # 0.1 10^3/uL (0.0-0.8); Eosinophils % 1.7 %; Hematocrit 60.3 % (37-53); Lymphocytes # 1.2 10^3/uL (0.8-4.8); Lymphocytes % 19.6 %; Mean Corpuscular HGB Conc 32.5 g/dL (30-55); Mean Corpuscular Volume 89.1 fl (82-101); Mean Platelet Volume 9.8 fL (7.4-10.4); Monocytes # 0.5 10^3/uL (0.2-0.9); Monocytes % 7.9 %; Nucleated Red Blood Cells % 0 %; Platelet Count 151 10^3/cmm (157-399); Red Blood Count 6.77 10^6/uL (3.85-5.65); Red Cell Distribution Width 15.9 % (12.1-15.1); White Blood Count 6.29 10^3/uL (3.29-11.43)
[2025-01-04 12:54] LABS: Alanine Aminotransferase 30 U/L (0-41); Albumin Level 4.5 g/dL (3.5-5.2); Alkaline Phosphatase 61 U/L (40-130); Aspartate Amino Transferase 24 U/L (0-40); Blood Urea Nitrogen 17 mg/dL (6-20); Calcium 9.5 mg/dL (8.5-10.5); Carbon Dioxide 24 mmol/L (22-29); Chloride 102 mmol/L (98-107); Creatine Phosphokinase 192 U/L (39-308); Globulin 2.4 g/dL (1.3-4.6); Glomerular Filtration Rate 35.4 mL/min (90-130); Glucose 87 mg/dL (65-115); Osmolality Calculated 285 mOsm/kg (285-295); Sodium 137 mmol/L (136-145); Total Bilirubin 0.5 mg/dL (0.15-1.2); Total Protein 6.9 g/dL (6.6-8.7)
[2025-01-04 12:57] LABS: Ammonia 38 umol/L (16-60)
[2025-01-04 13:05] LABS: Anion Gap 15.5 (5-19); Potassium 4.5 mmol/L (3.5-5.1)
== END 2025-01-04 12:16 | disposition home or self-care (01) ==
LOC: LAB 12:17
PROVIDERS: PCP Family Medicine; Visit Provider Family Medicine
DX: E74.04 McArdle disease (principal)
CPT/HCPCS: 36415; 80053; 82140; 82550; 85025

== ENCOUNTER 2025-01-10 07:34 | Outpatient (CLI) | payer MEDICARE, SELFPAY ==
[2025-01-10 08:22] LABS: Basophils % 0.6 %; Eosinophils # 0.1 10^3/uL (0.0-0.8); Eosinophils % 1.6 %; Hematocrit 64.5 % (37-53); Lymphocytes # 1.3 10^3/uL (0.8-4.8); Lymphocytes % 20.5 %; Mean Corpuscular HGB Conc 32.6 g/dL (30-55); Mean Corpuscular Hemoglobin 28.5 pg (27-33); Mean Corpuscular Volume 87.6 fl (82-101); Mean Platelet Volume 10.4 fL (7.4-10.4); Monocytes # 0.5 10^3/uL (0.2-0.9); Monocytes % 8.4 %; Neutrophils # 4.26 10^3/uL (1.8-7.7); Neutrophils % 68.6 %; Nucleated Red Blood Cells % 0 %; Platelet Count 171 10^3/cmm (157-399); Red Blood Count 7.36 10^6/uL (3.85-5.65); Red Cell Distribution Width 16.5 % (12.1-15.1); White Blood Count 6.21 10^3/uL (3.29-11.43)
[2025-01-10 08:38] LABS: Ammonia 23 umol/L (16-60)
[2025-01-10 08:39] LABS: Alanine Aminotransferase 26 U/L (0-41); Albumin Level 4.7 g/dL (3.5-5.2); Alkaline Phosphatase 62 U/L (40-130); Blood Urea Nitrogen 18 mg/dL (6-20); Calcium 9.7 mg/dL (8.5-10.5); Carbon Dioxide 24 mmol/L (22-29); Chloride 105 mmol/L (98-107); Creatine Phosphokinase 164 U/L (39-308); Globulin 2.6 g/dL (1.3-4.6); Glomerular Filtration Rate 35.4 mL/min (90-130); Glucose 88 mg/dL (65-115); Osmolality Calculated 291 mOsm/kg (285-295); Sodium 140 mmol/L (136-145); Total Bilirubin 0.7 mg/dL (0.15-1.2); Total Protein 7.3 g/dL (6.6-8.7)
[2025-01-10 08:40] LABS: Anion Gap 15.7 (5-19); Potassium 4.7 mmol/L (3.5-5.1)
[2025-01-10 08:41] LABS: Aspartate Amino Transferase 24 U/L (0-40)
== END 2025-01-10 07:35 | disposition home or self-care (01) ==
LOC: LAB 07:36
PROVIDERS: PCP Family Medicine; Visit Provider Family Medicine
DX: E74.04 McArdle disease (principal)
CPT/HCPCS: 36415; 80053; 82140; 82550; 85025

== ENCOUNTER 2025-01-17 08:16 | Outpatient (CLI) | payer MEDICARE, SELFPAY ==
[2025-01-17 09:31] LABS: Basophils % 0.5 %; Eosinophils # 0.1 10^3/uL (0.0-0.8); Eosinophils % 1.9 %; Hematocrit 59.4 % (37-53); Lymphocytes # 1.1 10^3/uL (0.8-4.8); Lymphocytes % 17.7 %; Mean Corpuscular HGB Conc 33.3 g/dL (30-55); Mean Corpuscular Hemoglobin 28.4 pg (27-33); Mean Corpuscular Volume 85.1 fl (82-101); Mean Platelet Volume 10.2 fL (7.4-10.4); Monocytes # 0.6 10^3/uL (0.2-0.9); Monocytes % 8.8 %; Neutrophils # 4.49 10^3/uL (1.8-7.7); Neutrophils % 70.8 %; Nucleated Red Blood Cells % 0 %; Platelet Count 172 10^3/cmm (157-399); Red Blood Count 6.98 10^6/uL (3.85-5.65); Red Cell Distribution Width 15.6 % (12.1-15.1); White Blood Count 6.34 10^3/uL (3.29-11.43)
[2025-01-17 16:13] LABS: Alanine Aminotransferase 21 U/L (0-41); Albumin Level 4.3 g/dL (3.5-5.2); Alkaline Phosphatase 51 U/L (40-130); Ammonia 53 umol/L (16-60); Anion Gap 13.8 (5-19); Aspartate Amino Transferase 24 U/L (0-40); Blood Urea Nitrogen 17 mg/dL (6-20); Calcium 9.1 mg/dL (8.5-10.5); Carbon Dioxide 26 mmol/L (22-29); Chloride 104 mmol/L (98-107); Creatine Phosphokinase 258 U/L (39-308); Globulin 1.8 g/dL (1.3-4.6); Glomerular Filtration Rate 35.4 mL/min (90-130); Glucose 68 mg/dL (65-115); Osmolality Calculated 290 mOsm/kg (285-295); Potassium 3.8 mmol/L (3.5-5.1); Sodium 140 mmol/L (136-145); Total Bilirubin 0.5 mg/dL (0.15-1.2); Total Protein 6.1 g/dL (6.6-8.7)
== END 2025-01-17 08:17 | disposition home or self-care (01) ==
LOC: LAB 08:17
PROVIDERS: PCP Family Medicine; Visit Provider Family Medicine
DX: E74.04 McArdle disease (principal)
CPT/HCPCS: 36415; 80053; 82140; 82550; 85025

== ENCOUNTER 2025-01-24 07:18 | Outpatient (CLI) | payer MEDICARE, SELFPAY ==
[2025-01-24 08:00] LABS: Basophils % 0.7 %; Eosinophils # 0.2 10^3/uL (0.0-0.8); Eosinophils % 3.4 %; Hematocrit 60.6 % (37-53); Lymphocytes # 1.1 10^3/uL (0.8-4.8); Lymphocytes % 18.6 %; Mean Corpuscular HGB Conc 32.7 g/dL (30-55); Mean Corpuscular Volume 88.7 fl (82-101); Mean Platelet Volume 10.2 fL (7.4-10.4); Monocytes # 0.5 10^3/uL (0.2-0.9); Monocytes % 8.3 %; Neutrophils # 4.07 10^3/uL (1.8-7.7); Neutrophils % 68.7 %; Nucleated Red Blood Cells % 0 %; Platelet Count 145 10^3/cmm (157-399); Red Blood Count 6.83 10^6/uL (3.85-5.65); Red Cell Distribution Width 15.6 % (12.1-15.1); White Blood Count 5.92 10^3/uL (3.29-11.43)
[2025-01-24 08:14] LABS: Alanine Aminotransferase 32 U/L (0-41); Albumin Level 4.4 g/dL (3.5-5.2); Alkaline Phosphatase 56 U/L (40-130); Ammonia 31 umol/L (16-60); Anion Gap 12.1 (5-19); Aspartate Amino Transferase 31 U/L (0-40); Blood Urea Nitrogen 17 mg/dL (6-20); Calcium 9.4 mg/dL (8.5-10.5); Carbon Dioxide 29 mmol/L (22-29); Chloride 102 mmol/L (98-107); Globulin 2.2 g/dL (1.3-4.6); Glomerular Filtration Rate 35.4 mL/min (90-130); Glucose 101 mg/dL (65-115); Osmolality Calculated 290 mOsm/kg (285-295); Potassium 4.1 mmol/L (3.5-5.1); Sodium 139 mmol/L (136-145); Total Bilirubin 0.7 mg/dL (0.15-1.2); Total Protein 6.6 g/dL (6.6-8.7)
[2025-01-24 10:41] LABS: Creatine Phosphokinase 346 U/L (39-308)
== END 2025-01-24 07:19 | disposition home or self-care (01) ==
LOC: LAB 07:24
PROVIDERS: PCP Family Medicine; Visit Provider Family Medicine
DX: E74.04 McArdle disease (principal)
CPT/HCPCS: 80053; 82140; 82550; 85025

== ENCOUNTER 2025-01-31 09:01 | Outpatient (CLI) | payer MEDICARE, SELFPAY ==
[2025-01-31 09:30] LABS: Basophils % 0.5 %; Eosinophils # 0.1 10^3/uL (0.0-0.8); Hematocrit 53.6 % (37-53); Lymphocytes # 1.2 10^3/uL (0.8-4.8); Lymphocytes % 21.7 %; Mean Corpuscular HGB Conc 32.6 g/dL (30-55); Mean Corpuscular Volume 88.9 fl (82-101); Mean Platelet Volume 10.4 fL (7.4-10.4); Monocytes # 0.5 10^3/uL (0.2-0.9); Monocytes % 8.6 %; Neutrophils # 3.76 10^3/uL (1.8-7.7); Nucleated Red Blood Cells % 0 %; Platelet Count 144 10^3/cmm (157-399); Red Blood Count 6.03 10^6/uL (3.85-5.65); Red Cell Distribution Width 14.8 % (12.1-15.1); White Blood Count 5.61 10^3/uL (3.29-11.43)
[2025-01-31 09:50] LABS: Alanine Aminotransferase 28 U/L (0-41); Albumin Level 4.2 g/dL (3.5-5.2); Alkaline Phosphatase 48 U/L (40-130); Ammonia 36 umol/L (16-60); Aspartate Amino Transferase 36 U/L (0-40); Blood Urea Nitrogen 16 mg/dL (6-20); Carbon Dioxide 24 mmol/L (22-29); Chloride 102 mmol/L (98-107); Creatine Phosphokinase 308 U/L (39-308); Glomerular Filtration Rate 33.5 mL/min (90-130); Glucose 95 mg/dL (65-115); Osmolality Calculated 283 mOsm/kg (285-295); Sodium 136 mmol/L (136-145); Total Bilirubin 0.5 mg/dL (0.15-1.2); Total Protein 6.2 g/dL (6.6-8.7)
[2025-01-31 09:57] LABS: Anion Gap 13.9 (5-19); Potassium 3.9 mmol/L (3.5-5.1)
== END 2025-01-31 09:02 | disposition home or self-care (01) ==
LOC: LAB 09:04
PROVIDERS: PCP Family Medicine; Visit Provider Family Medicine
DX: E74.04 McArdle disease (principal)
CPT/HCPCS: 36415; 80053; 82140; 82550; 85025

== ENCOUNTER 2025-02-07 07:00 | Outpatient (CLI) | payer MEDICARE, SELFPAY ==
[2025-02-07 07:48] LABS: Basophils % 0.5 %; Eosinophils # 0.2 10^3/uL (0.0-0.8); Eosinophils % 2.7 %; Hematocrit 56.8 % (37-53); Lymphocytes # 1.1 10^3/uL (0.8-4.8); Lymphocytes % 16.7 %; Mean Corpuscular HGB Conc 32.7 g/dL (30-55); Mean Corpuscular Hemoglobin 29.1 pg (27-33); Mean Corpuscular Volume 88.8 fl (82-101); Mean Platelet Volume 9.9 fL (7.4-10.4); Monocytes # 0.6 10^3/uL (0.2-0.9); Monocytes % 8.4 %; Neutrophils # 4.69 10^3/uL (1.8-7.7); Neutrophils % 71.4 %; Nucleated Red Blood Cells % 0 %; Platelet Count 176 10^3/cmm (157-399); Red Cell Distribution Width 14.9 % (12.1-15.1); White Blood Count 6.57 10^3/uL (3.29-11.43)
[2025-02-07 08:09] LABS: Alanine Aminotransferase 30 U/L (0-41); Albumin Level 4.4 g/dL (3.5-5.2); Alkaline Phosphatase 58 U/L (40-130); Aspartate Amino Transferase 28 U/L (0-40); Blood Urea Nitrogen 21 mg/dL (6-20); Calcium 9.7 mg/dL (8.5-10.5); Carbon Dioxide 26 mmol/L (22-29); Chloride 105 mmol/L (98-107); Creatine Phosphokinase 253 U/L (39-308); Globulin 2.4 g/dL (1.3-4.6); Glomerular Filtration Rate 33.5 mL/min (90-130); Glucose 99 mg/dL (65-115); Osmolality Calculated 295 mOsm/kg (285-295); Sodium 141 mmol/L (136-145); Total Bilirubin 0.6 mg/dL (0.15-1.2); Total Protein 6.8 g/dL (6.6-8.7)
[2025-02-07 08:10] LABS: Ammonia 26 umol/L (16-60)
[2025-02-07 08:13] LABS: Anion Gap 14.6 (5-19); Potassium 4.6 mmol/L (3.5-5.1)
== END 2025-02-07 07:01 | disposition home or self-care (01) ==
PROVIDERS: PCP Family Medicine; Visit Provider Family Medicine
DX: E74.04 McArdle disease (principal)
CPT/HCPCS: 36415; 80053; 82140; 82550; 85025

== ENCOUNTER 2025-02-14 07:43 | Outpatient (CLI) | payer MEDICARE, SELFPAY ==
[2025-02-14 08:20] LABS: Basophils % 0.5 %; Eosinophils # 0.1 10^3/uL (0.0-0.8); Eosinophils % 2.3 %; Hematocrit 58.7 % (37-53); Lymphocytes # 1.3 10^3/uL (0.8-4.8); Lymphocytes % 21.3 %; Mean Corpuscular HGB Conc 32.9 g/dL (30-55); Mean Corpuscular Hemoglobin 28.8 pg (27-33); Mean Corpuscular Volume 87.6 fl (82-101); Mean Platelet Volume 9.7 fL (7.4-10.4); Monocytes # 0.5 10^3/uL (0.2-0.9); Monocytes % 8.2 %; Neutrophils # 4.02 10^3/uL (1.8-7.7); Neutrophils % 67.5 %; Nucleated Red Blood Cells % 0 %; Platelet Count 181 10^3/cmm (157-399); White Blood Count 5.96 10^3/uL (3.29-11.43)
[2025-02-14 08:44] LABS: Alanine Aminotransferase 23 U/L (0-41); Albumin Level 4.6 g/dL (3.5-5.2); Alkaline Phosphatase 63 U/L (40-130); Anion Gap 13.8 (5-19); Aspartate Amino Transferase 31 U/L (0-40); Blood Urea Nitrogen 16 mg/dL (6-20); Calcium 9.6 mg/dL (8.5-10.5); Carbon Dioxide 23 mmol/L (22-29); Chloride 104 mmol/L (98-107); Globulin 2.2 g/dL (1.3-4.6); Glucose 94 mg/dL (65-115); Osmolality Calculated 285 mOsm/kg (285-295); Potassium 3.8 mmol/L (3.5-5.1); Sodium 137 mmol/L (136-145); Total Bilirubin 0.6 mg/dL (0.15-1.2); Total Protein 6.8 g/dL (6.6-8.7)
[2025-02-14 08:45] LABS: Ammonia 31 umol/L (16-60)
[2025-02-14 11:14] LABS: Creatine Phosphokinase 462 U/L (39-308)
== END 2025-02-14 07:44 | disposition home or self-care (01) ==
PROVIDERS: PCP Family Medicine; Visit Provider Family Medicine
DX: E74.04 McArdle disease (principal)
CPT/HCPCS: 36415; 80053; 82140; 82550; 85025

== ENCOUNTER 2025-02-21 08:09 | Outpatient (CLI) | payer MEDICARE, SELFPAY ==
[2025-02-21 08:42] LABS: Basophils % 0.4 %; Eosinophils # 0.2 10^3/uL (0.0-0.8); Eosinophils % 3.4 %; Hematocrit 50.7 % (37-53); Lymphocytes # 1.2 10^3/uL (0.8-4.8); Lymphocytes % 16.4 %; Mean Corpuscular HGB Conc 32.9 g/dL (30-55); Mean Corpuscular Hemoglobin 29.1 pg (27-33); Mean Corpuscular Volume 88.5 fl (82-101); Monocytes # 0.6 10^3/uL (0.2-0.9); Monocytes % 8.3 %; Neutrophils # 4.98 10^3/uL (1.8-7.7); Neutrophils % 71.2 %; Nucleated Red Blood Cells % 0 %; Platelet Count 174 10^3/cmm (157-399); Red Blood Count 5.73 10^6/uL (3.85-5.65); Red Cell Distribution Width 14.6 % (12.1-15.1)
[2025-02-21 08:58] LABS: Alanine Aminotransferase 36 U/L (0-41); Albumin Level 4.4 g/dL (3.5-5.2); Alkaline Phosphatase 63 U/L (40-130); Ammonia 49 umol/L (16-60); Anion Gap 14.7 (5-19); Aspartate Amino Transferase 44 U/L (0-40); Blood Urea Nitrogen 14 mg/dL (6-20); Calcium 8.9 mg/dL (8.5-10.5); Carbon Dioxide 24 mmol/L (22-29); Chloride 103 mmol/L (98-107); Globulin 2.1 g/dL (1.3-4.6); Glucose 104 mg/dL (65-115); Osmolality Calculated 287 mOsm/kg (285-295); Potassium 3.7 mmol/L (3.5-5.1); Sodium 138 mmol/L (136-145); Total Bilirubin 0.6 mg/dL (0.15-1.2); Total Protein 6.5 g/dL (6.6-8.7)
[2025-02-21 10:27] LABS: Creatine Phosphokinase 759 U/L (39-308)
== END 2025-02-21 08:10 | disposition home or self-care (01) ==
PROVIDERS: PCP Family Medicine; Visit Provider Family Medicine
DX: E74.04 McArdle disease (principal)
CPT/HCPCS: 36415; 80053; 82140; 82550; 85025

== ENCOUNTER 2025-02-28 08:50 | Outpatient (CLI) | payer MEDICARE, SELFPAY ==
[2025-02-28 09:29] LABS: Basophils # 0.1 10^3/uL (0.0-0.1); Eosinophils # 0.3 10^3/uL (0.0-0.8); Eosinophils % 4.3 %; Hematocrit 53.1 % (37-53); Lymphocytes # 1.3 10^3/uL (0.8-4.8); Lymphocytes % 21.6 %; Mean Corpuscular HGB Conc 33.5 g/dL (30-55); Mean Corpuscular Hemoglobin 29.4 pg (27-33); Mean Corpuscular Volume 87.8 fl (82-101); Mean Platelet Volume 9.5 fL (7.4-10.4); Monocytes # 0.5 10^3/uL (0.2-0.9); Monocytes % 8.8 %; Neutrophils # 3.86 10^3/uL (1.8-7.7); Neutrophils % 64.1 %; Nucleated Red Blood Cells % 0 %; Platelet Count 189 10^3/cmm (157-399); Red Blood Count 6.05 10^6/uL (3.85-5.65); Red Cell Distribution Width 13.8 % (12.1-15.1); White Blood Count 6.02 10^3/uL (3.29-11.43)
[2025-02-28 09:45] LABS: Ammonia 67 umol/L (16-60)
[2025-02-28 09:47] LABS: Alanine Aminotransferase 35 U/L (0-41); Albumin Level 4.3 g/dL (3.5-5.2); Alkaline Phosphatase 61 U/L (40-130); Anion Gap 15.1 (5-19); Aspartate Amino Transferase 38 U/L (0-40); Blood Urea Nitrogen 16 mg/dL (6-20); Calcium 9.2 mg/dL (8.5-10.5); Carbon Dioxide 24 mmol/L (22-29); Chloride 102 mmol/L (98-107); Globulin 2.4 g/dL (1.3-4.6); Glomerular Filtration Rate 37.6 mL/min (90-130); Glucose 100 mg/dL (65-115); Osmolality Calculated 285 mOsm/kg (285-295); Potassium 4.1 mmol/L (3.5-5.1); Sodium 137 mmol/L (136-145); Total Bilirubin 0.6 mg/dL (0.15-1.2); Total Protein 6.7 g/dL (6.6-8.7)
[2025-02-28 12:40] LABS: Creatine Phosphokinase 613 U/L (39-308)
== END 2025-02-28 08:51 | disposition home or self-care (01) ==
LOC: LAB 08:55
PROVIDERS: PCP Family Medicine; Visit Provider Family Medicine
DX: E74.04 McArdle disease (principal)
CPT/HCPCS: 36415; 80053; 82140; 82550; 85025

== ENCOUNTER 2025-03-07 08:30 | Outpatient (CLI) | payer MEDICARE, SELFPAY ==
[2025-03-07 09:11] LABS: Basophils % 0.5 %; Eosinophils # 0.2 10^3/uL (0.0-0.8); Eosinophils % 2.9 %; Hematocrit 56.8 % (37-53); Lymphocytes # 1.3 10^3/uL (0.8-4.8); Lymphocytes % 20.5 %; Mean Corpuscular HGB Conc 32.9 g/dL (30-55); Mean Corpuscular Hemoglobin 28.7 pg (27-33); Mean Corpuscular Volume 87.1 fl (82-101); Monocytes # 0.6 10^3/uL (0.2-0.9); Monocytes % 9.5 %; Neutrophils # 4.12 10^3/uL (1.8-7.7); Neutrophils % 66.1 %; Nucleated Red Blood Cells % 0 %; Platelet Count 187 10^3/cmm (157-399); Red Blood Count 6.52 10^6/uL (3.85-5.65); Red Cell Distribution Width 14.4 % (12.1-15.1); White Blood Count 6.23 10^3/uL (3.29-11.43)
[2025-03-07 09:32] LABS: Alanine Aminotransferase 31 U/L (0-41); Albumin Level 4.5 g/dL (3.5-5.2); Alkaline Phosphatase 62 U/L (40-130); Anion Gap 16.2 (5-19); Aspartate Amino Transferase 33 U/L (0-40); Blood Urea Nitrogen 15 mg/dL (6-20); Calcium 9.7 mg/dL (8.5-10.5); Carbon Dioxide 25 mmol/L (22-29); Chloride 105 mmol/L (98-107); Creatine Phosphokinase 283 U/L (39-308); Globulin 2.3 g/dL (1.3-4.6); Glomerular Filtration Rate 42.7 mL/min (90-130); Glucose 102 mg/dL (65-115); Osmolality Calculated 295 mOsm/kg (285-295); Potassium 4.2 mmol/L (3.5-5.1); Sodium 142 mmol/L (136-145); Total Bilirubin 0.6 mg/dL (0.15-1.2); Total Protein 6.8 g/dL (6.6-8.7)
[2025-03-07 09:40] LABS: Ammonia 40 umol/L (16-60)
== END 2025-03-07 08:31 | disposition home or self-care (01) ==
LOC: LAB 08:36
PROVIDERS: PCP Family Medicine; Visit Provider Family Medicine
DX: E74.04 McArdle disease (principal)
CPT/HCPCS: 36415; 80053; 82140; 82550; 85025

== ENCOUNTER 2025-03-14 07:25 | Outpatient (CLI) | payer MEDICARE, SELFPAY ==
[2025-03-14 07:55] LABS: Basophils % 0.4 %; Eosinophils # 0.2 10^3/uL (0.0-0.8); Eosinophils % 3.3 %; Hematocrit 55.6 % (37-53); Lymphocytes # 1.4 10^3/uL (0.8-4.8); Lymphocytes % 20.6 %; Mean Corpuscular HGB Conc 33.5 g/dL (30-55); Mean Corpuscular Hemoglobin 28.8 pg (27-33); Mean Corpuscular Volume 86.2 fl (82-101); Mean Platelet Volume 9.9 fL (7.4-10.4); Monocytes # 0.4 10^3/uL (0.2-0.9); Monocytes % 6.4 %; Neutrophils # 4.63 10^3/uL (1.8-7.7); Nucleated Red Blood Cells % 0 %; Platelet Count 195 10^3/cmm (157-399); Red Blood Count 6.45 10^6/uL (3.85-5.65); Red Cell Distribution Width 13.7 % (12.1-15.1); White Blood Count 6.71 10^3/uL (3.29-11.43)
[2025-03-14 08:14] LABS: Alanine Aminotransferase 26 U/L (0-41); Albumin Level 4.4 g/dL (3.5-5.2); Alkaline Phosphatase 65 U/L (40-130); Anion Gap 16.8 (5-19); Aspartate Amino Transferase 23 U/L (0-40); Blood Urea Nitrogen 19 mg/dL (6-20); Calcium 9.3 mg/dL (8.5-10.5); Carbon Dioxide 22 mmol/L (22-29); Chloride 107 mmol/L (98-107); Creatine Phosphokinase 213 U/L (39-308); Globulin 2.3 g/dL (1.3-4.6); Glomerular Filtration Rate 37.6 mL/min (90-130); Glucose 111 mg/dL (65-115); Osmolality Calculated 297 mOsm/kg (285-295); Potassium 3.8 mmol/L (3.5-5.1); Sodium 142 mmol/L (136-145); Total Bilirubin 0.5 mg/dL (0.15-1.2); Total Protein 6.7 g/dL (6.6-8.7)
[2025-03-14 08:16] LABS: Ammonia 38 umol/L (16-60)
== END 2025-03-14 07:26 | disposition home or self-care (01) ==
LOC: LAB 07:26
PROVIDERS: PCP Family Medicine; Visit Provider Family Medicine
DX: E74.04 McArdle disease (principal)
CPT/HCPCS: 36415; 80053; 82140; 82550; 85025

== ENCOUNTER 2025-03-23 08:11 | Outpatient (CLI) | payer MEDICARE, SELFPAY ==
[2025-03-23 08:37] LABS: Basophils % 0.5 %; Eosinophils # 0.2 10^3/uL (0.0-0.8); Eosinophils % 3.6 %; Hematocrit 51.1 % (37-53); Lymphocytes # 1.1 10^3/uL (0.8-4.8); Lymphocytes % 20.6 %; Mean Corpuscular HGB Conc 32.5 g/dL (30-55); Mean Corpuscular Hemoglobin 28.7 pg (27-33); Mean Corpuscular Volume 88.3 fl (82-101); Mean Platelet Volume 10.1 fL (7.4-10.4); Monocytes # 0.4 10^3/uL (0.2-0.9); Monocytes % 7.1 %; Neutrophils # 3.74 10^3/uL (1.8-7.7); Neutrophils % 67.7 %; Nucleated Red Blood Cells % 0 %; Platelet Count 182 10^3/cmm (157-399); Red Blood Count 5.79 10^6/uL (3.85-5.65); Red Cell Distribution Width 13.4 % (12.1-15.1); White Blood Count 5.53 10^3/uL (3.29-11.43)
[2025-03-23 09:01] LABS: Alanine Aminotransferase 39 U/L (0-41); Albumin Level 4.3 g/dL (3.5-5.2); Alkaline Phosphatase 61 U/L (40-130); Aspartate Amino Transferase 37 U/L (0-40); Blood Urea Nitrogen 19 mg/dL (6-20); Calcium 9.5 mg/dL (8.5-10.5); Carbon Dioxide 23 mmol/L (22-29); Chloride 101 mmol/L (98-107); Creatine Phosphokinase 232 U/L (39-308); Globulin 2.4 g/dL (1.3-4.6); Glomerular Filtration Rate 42.7 mL/min (90-130); Glucose 132 mg/dL (65-115); Osmolality Calculated 288 mOsm/kg (285-295); Sodium 137 mmol/L (136-145); Total Bilirubin 0.5 mg/dL (0.15-1.2); Total Protein 6.7 g/dL (6.6-8.7)
[2025-03-23 09:02] LABS: Ammonia 45 umol/L (16-60)
[2025-03-23 09:08] LABS: Anion Gap 16.8 (5-19); Potassium 3.8 mmol/L (3.5-5.1)
== END 2025-03-23 08:12 | disposition home or self-care (01) ==
PROVIDERS: PCP Family Medicine; Visit Provider Family Medicine
DX: E74.04 McArdle disease (principal)
CPT/HCPCS: 36415; 80053; 82140; 82550; 85025

== ENCOUNTER 2025-03-29 08:15 | Outpatient (CLI) | payer MEDICARE, SELFPAY ==
[2025-03-29 09:39] LABS: Basophils % 0.8 %; Eosinophils # 0.2 10^3/uL (0.0-0.8); Hematocrit 50.9 % (37-53); Lymphocytes # 1.1 10^3/uL (0.8-4.8); Lymphocytes % 21.5 %; Mean Corpuscular HGB Conc 32.4 g/dL (30-55); Mean Corpuscular Hemoglobin 28.8 pg (27-33); Monocytes # 0.4 10^3/uL (0.2-0.9); Monocytes % 7.9 %; Neutrophils # 3.24 10^3/uL (1.8-7.7); Neutrophils % 65.6 %; Nucleated Red Blood Cells % 0 %; Platelet Count 169 10^3/cmm (157-399); Red Blood Count 5.72 10^6/uL (3.85-5.65); Red Cell Distribution Width 13.5 % (12.1-15.1); White Blood Count 4.94 10^3/uL (3.29-11.43)
[2025-03-29 14:24] LABS: Ammonia 48 umol/L (16-60)
[2025-03-29 14:26] LABS: Alanine Aminotransferase 37 U/L (0-41); Albumin Level 4.4 g/dL (3.5-5.2); Alkaline Phosphatase 59 U/L (40-130); Aspartate Amino Transferase 34 U/L (0-40); Blood Urea Nitrogen 19 mg/dL (6-20); Calcium 9.4 mg/dL (8.5-10.5); Carbon Dioxide 24 mmol/L (22-29); Chloride 101 mmol/L (98-107); Globulin 2.2 g/dL (1.3-4.6); Glomerular Filtration Rate 35.4 mL/min (90-130); Glucose 99 mg/dL (65-115); Osmolality Calculated 284 mOsm/kg (285-295); Sodium 136 mmol/L (136-145); Total Bilirubin 0.4 mg/dL (0.15-1.2); Total Protein 6.6 g/dL (6.6-8.7)
[2025-03-29 15:00] LABS: Anion Gap 14.6 (5-19); Potassium 3.6 mmol/L (3.5-5.1)
[2025-03-30 09:02] LABS: Creatine Phosphokinase 413 U/L (39-308)
== END 2025-03-29 08:16 | disposition home or self-care (01) ==
PROVIDERS: PCP Family Medicine; Visit Provider Family Medicine
DX: E74.04 McArdle disease (principal)
CPT/HCPCS: 36415; 80053; 82140; 82550; 85025

== ENCOUNTER 2025-04-06 07:33 | Outpatient (CLI) | payer MEDICARE, SELFPAY ==
[2025-04-06 08:15] LABS: Alanine Aminotransferase 25 U/L (0-41); Albumin Level 4.4 g/dL (3.5-5.2); Alkaline Phosphatase 55 U/L (40-130); Ammonia 33 umol/L (16-60); Anion Gap 14.1 (5-19); Aspartate Amino Transferase 29 U/L (0-40); Blood Urea Nitrogen 19 mg/dL (6-20); Calcium 10.2 mg/dL (8.5-10.5); Carbon Dioxide 25 mmol/L (22-29); Chloride 105 mmol/L (98-107); Creatine Phosphokinase 278 U/L (39-308); Globulin 2.4 g/dL (1.3-4.6); Glomerular Filtration Rate 33.5 mL/min (90-130); Glucose 96 mg/dL (65-115); Osmolality Calculated 292 mOsm/kg (285-295); Potassium 4.1 mmol/L (3.5-5.1); Sodium 140 mmol/L (136-145); Total Bilirubin 0.5 mg/dL (0.15-1.2); Total Protein 6.8 g/dL (6.6-8.7)
[2025-04-06 08:26] LABS: Basophils % 0.5 %; Eosinophils # 0.2 10^3/uL (0.0-0.8); Eosinophils % 2.7 %; Lymphocytes # 1.3 10^3/uL (0.8-4.8); Lymphocytes % 20.2 %; Mean Corpuscular HGB Conc 32.4 g/dL (30-55); Mean Corpuscular Hemoglobin 28.7 pg (27-33); Mean Corpuscular Volume 88.9 fl (82-101); Monocytes # 0.5 10^3/uL (0.2-0.9); Monocytes % 8.3 %; Neutrophils # 4.25 10^3/uL (1.8-7.7); Neutrophils % 68.1 %; Nucleated Red Blood Cells % 0 %; Platelet Count 225 10^3/cmm (157-399); Red Blood Count 5.74 10^6/uL (3.85-5.65); White Blood Count 6.24 10^3/uL (3.29-11.43)
== END 2025-04-06 07:34 | disposition home or self-care (01) ==
LOC: LAB 07:37
PROVIDERS: PCP Family Medicine; Visit Provider Family Medicine
DX: E74.04 McArdle disease (principal)
CPT/HCPCS: 36415; 80053; 82140; 82550; 85025

== ENCOUNTER 2025-04-13 07:45 | Outpatient (CLI) | payer MEDICARE, SELFPAY ==
[2025-04-13 08:33] LABS: Basophils % 0.5 %; Eosinophils # 0.5 10^3/uL (0.0-0.8); Eosinophils % 6.3 %; Hematocrit 49.1 % (37-53); Lymphocytes # 1.4 10^3/uL (0.8-4.8); Lymphocytes % 16.7 %; Mean Corpuscular HGB Conc 33.4 g/dL (30-55); Mean Corpuscular Hemoglobin 28.5 pg (27-33); Mean Corpuscular Volume 85.4 fl (82-101); Mean Platelet Volume 9.6 fL (7.4-10.4); Monocytes # 0.7 10^3/uL (0.2-0.9); Monocytes % 7.7 %; Neutrophils # 5.89 10^3/uL (1.8-7.7); Neutrophils % 68.5 %; Nucleated Red Blood Cells % 0 %; Platelet Count 198 10^3/cmm (157-399); Red Blood Count 5.75 10^6/uL (3.85-5.65)
[2025-04-13 08:50] LABS: Alanine Aminotransferase 24 U/L (0-41); Albumin Level 4.3 g/dL (3.5-5.2); Alkaline Phosphatase 56 U/L (40-130); Aspartate Amino Transferase 30 U/L (0-40); Blood Urea Nitrogen 18 mg/dL (6-20); Calcium 9.2 mg/dL (8.5-10.5); Carbon Dioxide 18 mmol/L (22-29); Chloride 105 mmol/L (98-107); Globulin 2.4 g/dL (1.3-4.6); Glomerular Filtration Rate 31.7 mL/min (90-130); Glucose 118 mg/dL (65-115); Osmolality Calculated 287 mOsm/kg (285-295); Sodium 137 mmol/L (136-145); Total Bilirubin 0.8 mg/dL (0.15-1.2); Total Protein 6.7 g/dL (6.6-8.7)
[2025-04-13 08:52] LABS: Ammonia 45 umol/L (16-60)
[2025-04-13 09:13] LABS: Potassium 3.3 mmol/L (3.5-5.1)
[2025-04-13 11:51] LABS: Anion Gap 17.3 (5-19)
[2025-04-13 11:53] LABS: Creatine Phosphokinase 539 U/L (39-308)
== END 2025-04-13 07:46 | disposition home or self-care (01) ==
PROVIDERS: PCP Family Medicine; Visit Provider Family Medicine
DX: E74.04 McArdle disease (principal)
CPT/HCPCS: 36415; 80053; 82140; 82550; 85025

== ENCOUNTER 2025-04-18 08:16 | Outpatient (CLI) | payer MEDICARE, SELFPAY ==
[2025-04-18 08:39] LABS: Basophils # 0.1 10^3/uL (0.0-0.1); Basophils % 0.7 %; Eosinophils # 0.1 10^3/uL (0.0-0.8); Eosinophils % 1.6 %; Hematocrit 50.2 % (37-53); Lymphocytes # 1.3 10^3/uL (0.8-4.8); Mean Corpuscular HGB Conc 32.7 g/dL (30-55); Mean Corpuscular Hemoglobin 28.6 pg (27-33); Mean Corpuscular Volume 87.5 fl (82-101); Mean Platelet Volume 9.6 fL (7.4-10.4); Monocytes # 0.6 10^3/uL (0.2-0.9); Monocytes % 8.6 %; Neutrophils # 4.84 10^3/uL (1.8-7.7); Neutrophils % 69.8 %; Nucleated Red Blood Cells % 0 %; Platelet Count 198 10^3/cmm (157-399); Red Blood Count 5.74 10^6/uL (3.85-5.65); Red Cell Distribution Width 14.2 % (12.1-15.1); White Blood Count 6.94 10^3/uL (3.29-11.43)
[2025-04-18 08:59] LABS: Ammonia 53 umol/L (16-60)
[2025-04-18 09:00] LABS: Alanine Aminotransferase 23 U/L (0-41); Albumin Level 4.3 g/dL (3.5-5.2); Alkaline Phosphatase 53 U/L (40-130); Blood Urea Nitrogen 15 mg/dL (6-20); Calcium 8.9 mg/dL (8.5-10.5); Carbon Dioxide 18 mmol/L (22-29); Chloride 105 mmol/L (98-107); Creatine Phosphokinase 243 U/L (39-308); Globulin 2.1 g/dL (1.3-4.6); Glomerular Filtration Rate 37.6 mL/min (90-130); Glucose 97 mg/dL (65-115); Osmolality Calculated 287 mOsm/kg (285-295); Sodium 138 mmol/L (136-145); Total Bilirubin 0.5 mg/dL (0.15-1.2); Total Protein 6.4 g/dL (6.6-8.7)
[2025-04-18 09:05] LABS: Anion Gap 18.6 (5-19); Aspartate Amino Transferase 25 U/L (0-40); Potassium 3.6 mmol/L (3.5-5.1)
== END 2025-04-18 08:17 | disposition home or self-care (01) ==
PROVIDERS: PCP Family Medicine; Visit Provider Family Medicine
DX: E74.04 McArdle disease (principal)
CPT/HCPCS: 36415; 80053; 82140; 82550; 85025

== ENCOUNTER 2025-04-20 08:00 | Outpatient (CLI) | payer MEDICARE, SELFPAY ==
[2025-04-20 08:30] LABS: Basophils % 0.6 %; Eosinophils # 0.2 10^3/uL (0.0-0.8); Eosinophils % 2.2 %; Lymphocytes # 1.6 10^3/uL (0.8-4.8); Lymphocytes % 23.2 %; Mean Corpuscular HGB Conc 33.4 g/dL (30-55); Mean Corpuscular Hemoglobin 28.8 pg (27-33); Mean Corpuscular Volume 86.1 fl (82-101); Mean Platelet Volume 9.4 fL (7.4-10.4); Monocytes # 0.6 10^3/uL (0.2-0.9); Monocytes % 8.2 %; Neutrophils # 4.37 10^3/uL (1.8-7.7); Neutrophils % 65.4 %; Nucleated Red Blood Cells % 0 %; Platelet Count 202 10^3/cmm (157-399); Red Blood Count 5.46 10^6/uL (3.85-5.65); White Blood Count 6.69 10^3/uL (3.29-11.43)
[2025-04-20 08:47] LABS: Albumin Level 4.3 g/dL (3.5-5.2); Anion Gap 15.5 (5-19); Blood Urea Nitrogen 20 mg/dL (6-20); Calcium 9.1 mg/dL (8.5-10.5); Carbon Dioxide 24 mmol/L (22-29); Chloride 104 mmol/L (98-107); Glomerular Filtration Rate 30.1 mL/min (90-130); Glucose 115 mg/dL (65-115); Phosphorus 3.2 mg/dL (2.5-4.5); Potassium 3.5 mmol/L (3.5-5.1); Sodium 140 mmol/L (136-145)
[2025-04-20 08:53] LABS: Creatinine Urine, Random 251 mg/dL (39-259); Microalbum Creatinine Ratio Ur 56 mg/dL (0-20); Microalbumin Random Urine 14 ug/dL (0-20)
== END 2025-04-20 08:01 | disposition home or self-care (01) ==
PROVIDERS: PCP Family Medicine; Visit Provider Registered Nurse
DX: N18.32 Chronic kidney disease, stage 3b (principal)
CPT/HCPCS: 80069; 82044; 85025

== ENCOUNTER 2025-04-25 07:49 | Outpatient (CLI) | payer MEDICARE, SELFPAY ==
[2025-04-25 08:16] LABS: Basophils % 0.8 %; Eosinophils # 0.2 10^3/uL (0.0-0.8); Eosinophils % 3.8 %; Hematocrit 48.7 % (37-53); Lymphocytes # 0.9 10^3/uL (0.8-4.8); Lymphocytes % 18.8 %; Mean Corpuscular HGB Conc 32.9 g/dL (30-55); Mean Corpuscular Hemoglobin 28.1 pg (27-33); Mean Corpuscular Volume 85.6 fl (82-101); Mean Platelet Volume 9.6 fL (7.4-10.4); Monocytes # 0.4 10^3/uL (0.2-0.9); Neutrophils # 3.42 10^3/uL (1.8-7.7); Neutrophils % 68.4 %; Nucleated Red Blood Cells % 0 %; Platelet Count 168 10^3/cmm (157-399); Red Blood Count 5.69 10^6/uL (3.85-5.65); Red Cell Distribution Width 13.6 % (12.1-15.1)
[2025-04-25 08:26] LABS: Ammonia 61 umol/L (16-60)
[2025-04-25 08:31] LABS: Alanine Aminotransferase 29 U/L (0-41); Albumin Level 4.3 g/dL (3.5-5.2); Alkaline Phosphatase 56 U/L (40-130); Anion Gap 16.4 (5-19); Aspartate Amino Transferase 32 U/L (0-40); Blood Urea Nitrogen 17 mg/dL (6-20); Calcium 9.2 mg/dL (8.5-10.5); Carbon Dioxide 25 mmol/L (22-29); Chloride 104 mmol/L (98-107); Globulin 2.1 g/dL (1.3-4.6); Glomerular Filtration Rate 27.4 mL/min (90-130); Glucose 110 mg/dL (65-115); Osmolality Calculated 296 mOsm/kg (285-295); Potassium 3.4 mmol/L (3.5-5.1); Sodium 142 mmol/L (136-145); Total Bilirubin 0.5 mg/dL (0.15-1.2); Total Protein 6.4 g/dL (6.6-8.7)
[2025-04-25 14:23] LABS: Creatine Phosphokinase 402 U/L (39-308)
== END 2025-04-25 07:50 | disposition home or self-care (01) ==
PROVIDERS: PCP Family Medicine; Visit Provider Family Medicine
DX: E74.04 McArdle disease (principal)
CPT/HCPCS: 36415; 80053; 82140; 82550; 85025

== ENCOUNTER 2025-05-02 07:24 | Outpatient (CLI) | payer MEDICARE, SELFPAY ==
[2025-05-02 08:00] LABS: Hematocrit 50.2 % (37-53); Hemoglobin 15.90 g/dL (11.27-16.99); Mean Corpuscular HGB Conc 31.7 g/dL (30-55); Mean Corpuscular Hemoglobin 27.8 pg (27-33); Mean Corpuscular Volume 87.8 fl (82-101); Nucleated Red Blood Cells % 0 %; Platelet Count 152 10^3/cmm (157-399); Red Blood Count 5.72 10^6/uL (3.85-5.65); White Blood Count 4.90 10^3/uL (3.29-11.43)
[2025-05-02 08:10] LABS: Alanine Aminotransferase 30 U/L (0-41); Albumin Level 4.0 g/dL (3.5-5.2); Alkaline Phosphatase 50 U/L (40-130); Aspartate Amino Transferase 34 U/L (0-40); Blood Urea Nitrogen 11 mg/dL (6-20); Calcium 9.1 mg/dL (8.5-10.5); Carbon Dioxide 24 mmol/L (22-29); Chloride 104 mmol/L (98-107); Globulin 2.4 g/dL (1.3-4.6); Glucose 93 mg/dL (65-115); Osmolality Calculated 283 mOsm/kg (285-295); Sodium 137 mmol/L (136-145); Total Protein 6.4 g/dL (6.6-8.7)
[2025-05-02 08:13] LABS: Anion Gap 13.3 (5-19); Potassium 4.3 mmol/L (3.5-5.1)
== END 2025-05-02 07:25 | disposition home or self-care (01) ==
PROVIDERS: PCP Family Medicine; Visit Provider Family Medicine
DX: Z01.89 Encounter for other specified special examinations (principal)
CPT/HCPCS: 36415; 80053; 82550; 85025

== ENCOUNTER 2025-05-09 07:12 | Outpatient (CLI) | payer MEDICARE, SELFPAY ==
[2025-05-09 07:54] LABS: Hematocrit 52.2 % (37-53); Hemoglobin 16.70 g/dL (11.27-16.99); Mean Corpuscular HGB Conc 32.0 g/dL (30-55); Mean Corpuscular Hemoglobin 27.6 pg (27-33); Mean Corpuscular Volume 86.4 fl (82-101); Nucleated Red Blood Cells % 0 %; Platelet Count 186 10^3/cmm (157-399); Red Blood Count 6.04 10^6/uL (3.85-5.65); White Blood Count 5.29 10^3/uL (3.29-11.43)
[2025-05-09 07:58] LABS: Ammonia 52 umol/L (16-60)
[2025-05-09 08:02] LABS: Alanine Aminotransferase 23 U/L (0-41); Albumin Level 4.3 g/dL (3.5-5.2); Alkaline Phosphatase 57 U/L (40-130); Blood Urea Nitrogen 16 mg/dL (6-20); Calcium 9.3 mg/dL (8.5-10.5); Carbon Dioxide 17 mmol/L (22-29); Chloride 105 mmol/L (98-107); Globulin 2.2 g/dL (1.3-4.6); Glucose 88 mg/dL (65-115); Osmolality Calculated 287 mOsm/kg (285-295); Sodium 138 mmol/L (136-145); Total Protein 6.5 g/dL (6.6-8.7)
[2025-05-09 08:13] LABS: Anion Gap 20.0 (5-19); Aspartate Amino Transferase 25 U/L (0-40); Potassium 4.0 mmol/L (3.5-5.1)
== END 2025-05-09 07:13 | disposition home or self-care (01) ==
LOC: LAB 07:15
PROVIDERS: PCP Family Medicine; Visit Provider Family Medicine
DX: E74.04 McArdle disease (principal)
CPT/HCPCS: 36415; 80053; 82140; 82550; 85025

== ENCOUNTER 2025-05-17 07:56 | Outpatient (CLI) | payer MEDICARE, SELFPAY ==
[2025-05-17 08:14] LABS: Hematocrit 48.1 % (37-53); Hemoglobin 15.90 g/dL (11.27-16.99); Mean Corpuscular HGB Conc 33.1 g/dL (30-55); Mean Corpuscular Hemoglobin 28.1 pg (27-33); Mean Corpuscular Volume 85.1 fl (82-101); Nucleated Red Blood Cells % 0 %; Platelet Count 199 10^3/cmm (157-399); Red Blood Count 5.65 10^6/uL (3.85-5.65); White Blood Count 5.68 10^3/uL (3.29-11.43)
[2025-05-17 08:31] LABS: Ammonia 39 umol/L (16-60)
[2025-05-17 08:32] LABS: Alanine Aminotransferase 20 U/L (0-41); Albumin Level 4.1 g/dL (3.5-5.2); Alkaline Phosphatase 56 U/L (40-130); Blood Urea Nitrogen 20 mg/dL (6-20); Calcium 9.0 mg/dL (8.5-10.5); Carbon Dioxide 22 mmol/L (22-29); Chloride 103 mmol/L (98-107); Globulin 2.3 g/dL (1.3-4.6); Glucose 113 mg/dL (65-115); Osmolality Calculated 289 mOsm/kg (285-295); Sodium 138 mmol/L (136-145); Total Protein 6.4 g/dL (6.6-8.7)
[2025-05-17 15:15] LABS: Anion Gap 16.6 (5-19); Aspartate Amino Transferase 33 U/L (0-40); Potassium 3.6 mmol/L (3.5-5.1)
== END 2025-05-17 07:57 | disposition home or self-care (01) ==
PROVIDERS: PCP Family Medicine; Visit Provider Family Medicine
DX: E74.04 McArdle disease (principal)
CPT/HCPCS: 36415; 80053; 82140; 82550; 85025

== ENCOUNTER 2025-05-24 07:35 | Outpatient (CLI) | payer MEDICARE, SELFPAY ==
[2025-05-24 08:08] LABS: Hematocrit 50.4 % (37-53); Hemoglobin 15.90 g/dL (11.27-16.99); Mean Corpuscular HGB Conc 31.5 g/dL (30-55); Mean Corpuscular Hemoglobin 27.5 pg (27-33); Mean Corpuscular Volume 87.2 fl (82-101); Nucleated Red Blood Cells % 0 %; Platelet Count 179 10^3/cmm (157-399); Red Blood Count 5.78 10^6/uL (3.85-5.65); White Blood Count 8.04 10^3/uL (3.29-11.43)
[2025-05-24 11:54] LABS: Alanine Aminotransferase 29 U/L (0-41); Albumin Level 4.3 g/dL (3.5-5.2); Alkaline Phosphatase 56 U/L (40-130); Ammonia 51 umol/L (16-60); Anion Gap 17.7 (5-19); Aspartate Amino Transferase 38 U/L (0-40); Blood Urea Nitrogen 16 mg/dL (6-20); Calcium 9.2 mg/dL (8.5-10.5); Carbon Dioxide 22 mmol/L (22-29); Chloride 103 mmol/L (98-107); Globulin 2.4 g/dL (1.3-4.6); Glucose 82 mg/dL (65-115); Osmolality Calculated 288 mOsm/kg (285-295); Potassium 3.7 mmol/L (3.5-5.1); Sodium 139 mmol/L (136-145); Total Protein 6.7 g/dL (6.6-8.7)
== END 2025-05-24 07:36 | disposition home or self-care (01) ==
PROVIDERS: PCP Family Medicine; Visit Provider Family Medicine
DX: E74.04 McArdle disease (principal); M62.82 Rhabdomyolysis
CPT/HCPCS: 36415; 80053; 82140; 82550; 85025

== ENCOUNTER 2025-05-31 10:44 | Outpatient (CLI) | payer MEDICARE, SELFPAY ==
[2025-05-31 11:02] LABS: Hematocrit 51.1 % (37-53); Hemoglobin 16.30 g/dL (11.27-16.99); Mean Corpuscular HGB Conc 31.9 g/dL (30-55); Mean Corpuscular Hemoglobin 27.3 pg (27-33); Mean Corpuscular Volume 85.7 fl (82-101); Nucleated Red Blood Cells % 0 %; Platelet Count 194 10^3/cmm (157-399); Red Blood Count 5.96 10^6/uL (3.85-5.65); White Blood Count 5.74 10^3/uL (3.29-11.43)
[2025-05-31 11:17] LABS: Ammonia 43 umol/L (16-60)
[2025-05-31 11:18] LABS: Alanine Aminotransferase 31 U/L (0-41); Albumin Level 4.3 g/dL (3.5-5.2); Alkaline Phosphatase 64 U/L (40-130); Anion Gap 16.5 (5-19); Aspartate Amino Transferase 39 U/L (0-40); Blood Urea Nitrogen 18 mg/dL (6-20); Calcium 9.5 mg/dL (8.5-10.5); Carbon Dioxide 24 mmol/L (22-29); Chloride 104 mmol/L (98-107); Globulin 2.5 g/dL (1.3-4.6); Glucose 108 mg/dL (65-115); Osmolality Calculated 294 mOsm/kg (285-295); Potassium 3.5 mmol/L (3.5-5.1); Sodium 141 mmol/L (136-145); Total Protein 6.8 g/dL (6.6-8.7)
== END 2025-05-31 10:45 | disposition home or self-care (01) ==
LOC: LAB 10:47
PROVIDERS: PCP Family Medicine; Visit Provider Family Medicine
DX: E74.04 McArdle disease (principal)
CPT/HCPCS: 36415; 80053; 82140; 82550; 85025

== ENCOUNTER 2025-06-10 08:55 | Outpatient (CLI) | payer MEDICARE, SELFPAY ==
[2025-06-10 09:21] LABS: Hematocrit 52.6 % (37-53); Hemoglobin 17.30 g/dL (11.27-16.99); Mean Corpuscular HGB Conc 32.9 g/dL (30-55); Mean Corpuscular Hemoglobin 27.7 pg (27-33); Mean Corpuscular Volume 84.2 fl (82-101); Platelet Count 243 10^3/cmm (157-399); Red Blood Count 6.25 10^6/uL (3.85-5.65); White Blood Count 7.33 10^3/uL (3.29-11.43)
[2025-06-10 09:38] LABS: Alanine Aminotransferase 25 U/L (0-41); Albumin Level 4.7 g/dL (3.5-5.2); Alkaline Phosphatase 68 U/L (40-130); Anion Gap 16.1 (5-19); Aspartate Amino Transferase 25 U/L (0-40); Blood Urea Nitrogen 22 mg/dL (6-20); Calcium 9.4 mg/dL (8.5-10.5); Carbon Dioxide 21 mmol/L (22-29); Chloride 106 mmol/L (98-107); Globulin 2.3 g/dL (1.3-4.6); Glucose 95 mg/dL (65-115); Osmolality Calculated 291 mOsm/kg (285-295); Potassium 4.1 mmol/L (3.5-5.1); Sodium 139 mmol/L (136-145); Total Protein 7.0 g/dL (6.6-8.7)
[2025-06-10 09:44] LABS: Ammonia 56 umol/L (16-60)
[2025-06-10 10:25] LABS: Absolute Segmented Neutrophil 5.1 10/cmm (1.6-7.1); Atypical Lymphs 0.0 % (0-5); Band Neutrophils Absolute 0.1 10^3/cmm (0.0-1.2); Total Cells Counted 100 (0-100)
== END 2025-06-10 08:56 | disposition home or self-care (01) ==
PROVIDERS: PCP Family Medicine; Visit Provider Family Medicine
DX: E74.04 McArdle disease (principal)
CPT/HCPCS: 80053; 82140; 85007; 85027

== ENCOUNTER 2025-06-13 07:59 | Outpatient (CLI) | payer MEDICARE, SELFPAY ==
[2025-06-13 08:18] LABS: Hematocrit 51.7 % (37-53); Hemoglobin 16.90 g/dL (11.27-16.99); Mean Corpuscular HGB Conc 32.7 g/dL (30-55); Mean Corpuscular Hemoglobin 27.9 pg (27-33); Mean Corpuscular Volume 85.3 fl (82-101); Nucleated Red Blood Cells % 0 %; Platelet Count 250 10^3/cmm (157-399); Red Blood Count 6.06 10^6/uL (3.85-5.65); White Blood Count 7.11 10^3/uL (3.29-11.43)
[2025-06-13 08:40] LABS: Alanine Aminotransferase 21 U/L (0-41); Albumin Level 4.4 g/dL (3.5-5.2); Alkaline Phosphatase 58 U/L (40-130); Anion Gap 13.6 (5-19); Aspartate Amino Transferase 21 U/L (0-40); Blood Urea Nitrogen 18 mg/dL (6-20); Calcium 9.1 mg/dL (8.5-10.5); Carbon Dioxide 21 mmol/L (22-29); Chloride 104 mmol/L (98-107); Globulin 2.2 g/dL (1.3-4.6); Glucose 98 mg/dL (65-115); Osmolality Calculated 282 mOsm/kg (285-295); Potassium 3.6 mmol/L (3.5-5.1); Sodium 135 mmol/L (136-145); Total Protein 6.6 g/dL (6.6-8.7)
[2025-06-13 09:03] LABS: Ammonia 39 umol/L (16-60)
== END 2025-06-13 08:00 | disposition home or self-care (01) ==
LOC: LAB 08:00
PROVIDERS: PCP Family Medicine; Visit Provider Family Medicine
DX: E74.04 McArdle disease (principal)
CPT/HCPCS: 36415; 80053; 82140; 82550; 85025

== ENCOUNTER 2025-06-22 09:15 | Outpatient (CLI) | payer MEDICARE, SELFPAY ==
[2025-06-22 09:49] LABS: Hematocrit 50.1 % (37-53); Hemoglobin 16.50 g/dL (11.27-16.99); Mean Corpuscular HGB Conc 32.9 g/dL (30-55); Mean Corpuscular Hemoglobin 28.2 pg (27-33); Mean Corpuscular Volume 85.6 fl (82-101); Nucleated Red Blood Cells % 0 %; Platelet Count 170 10^3/cmm (157-399); Red Blood Count 5.85 10^6/uL (3.85-5.65); White Blood Count 5.27 10^3/uL (3.29-11.43)
[2025-06-22 10:00] LABS: Ammonia 31 umol/L (16-60)
[2025-06-22 10:01] LABS: Alanine Aminotransferase 34 U/L (0-41); Albumin Level 4.4 g/dL (3.5-5.2); Alkaline Phosphatase 61 U/L (40-130); Anion Gap 13.6 (5-19); Aspartate Amino Transferase 45 U/L (0-40); Blood Urea Nitrogen 15 mg/dL (6-20); Calcium 9.4 mg/dL (8.5-10.5); Carbon Dioxide 28 mmol/L (22-29); Chloride 102 mmol/L (98-107); Globulin 2.3 g/dL (1.3-4.6); Glucose 99 mg/dL (65-115); Osmolality Calculated 291 mOsm/kg (285-295); Potassium 3.6 mmol/L (3.5-5.1); Sodium 140 mmol/L (136-145); Total Protein 6.7 g/dL (6.6-8.7)
== END 2025-06-22 09:16 | disposition home or self-care (01) ==
PROVIDERS: PCP Family Medicine; Visit Provider Family Medicine
DX: E74.04 McArdle disease (principal)
CPT/HCPCS: 36415; 80053; 82140; 82550; 85025

== ENCOUNTER 2025-07-04 08:48 | Outpatient (CLI) | payer MEDICARE, SELFPAY ==
[2025-07-04 09:22] LABS: Hematocrit 53.4 % (37-53); Hemoglobin 17.40 g/dL (11.27-16.99); Mean Corpuscular HGB Conc 32.6 g/dL (30-55); Mean Corpuscular Hemoglobin 27.7 pg (27-33); Mean Corpuscular Volume 85.0 fl (82-101); Nucleated Red Blood Cells % 0 %; Platelet Count 169 10^3/cmm (157-399); Red Blood Count 6.28 10^6/uL (3.85-5.65); White Blood Count 8.29 10^3/uL (3.29-11.43)
[2025-07-04 09:44] LABS: Alanine Aminotransferase 30 U/L (0-41); Albumin Level 4.7 g/dL (3.5-5.2); Alkaline Phosphatase 59 U/L (40-130); Ammonia 18 umol/L (16-60); Anion Gap 17.7 (5-19); Aspartate Amino Transferase 21 U/L (0-40); Blood Urea Nitrogen 20 mg/dL (6-20); Calcium 9.5 mg/dL (8.5-10.5); Carbon Dioxide 25 mmol/L (22-29); Chloride 104 mmol/L (98-107); Globulin 2.4 g/dL (1.3-4.6); Glucose 121 mg/dL (65-115); Osmolality Calculated 300 mOsm/kg (285-295); Potassium 3.7 mmol/L (3.5-5.1); Sodium 143 mmol/L (136-145); Total Protein 7.1 g/dL (6.6-8.7)
[2025-07-05 14:02] LABS: Thyroid Stimulating Hormone 0.59 uIU/mL (0.27-4.20)
== END 2025-07-04 08:49 | disposition home or self-care (01) ==
LOC: LAB 08:50
PROVIDERS: PCP Family Medicine; Visit Provider Family Medicine
DX: E74.04 McArdle disease (principal)
CPT/HCPCS: 36415; 80053; 82140; 82550; 84443; 85025

== ENCOUNTER 2025-07-12 09:00 | Outpatient (CLI) | payer MEDICARE, SELFPAY ==
[2025-07-12 09:27] LABS: Hematocrit 50.1 % (37-53); Hemoglobin 16.40 g/dL (11.27-16.99); Mean Corpuscular HGB Conc 32.7 g/dL (30-55); Mean Corpuscular Hemoglobin 27.8 pg (27-33); Mean Corpuscular Volume 85.1 fl (82-101); Nucleated Red Blood Cells % 0 %; Platelet Count 195 10^3/cmm (157-399); Red Blood Count 5.89 10^6/uL (3.85-5.65); White Blood Count 6.36 10^3/uL (3.29-11.43)
[2025-07-12 09:43] LABS: Ammonia 24 umol/L (16-60)
[2025-07-12 09:49] LABS: Alanine Aminotransferase 22 U/L (0-41); Albumin Level 4.3 g/dL (3.5-5.2); Alkaline Phosphatase 64 U/L (40-130); Anion Gap 16.3 (5-19); Aspartate Amino Transferase 19 U/L (0-40); Blood Urea Nitrogen 15 mg/dL (6-20); Calcium 9.3 mg/dL (8.5-10.5); Carbon Dioxide 25 mmol/L (22-29); Chloride 103 mmol/L (98-107); Globulin 2.3 g/dL (1.3-4.6); Glucose 119 mg/dL (65-115); Osmolality Calculated 294 mOsm/kg (285-295); Potassium 3.3 mmol/L (3.5-5.1); Sodium 141 mmol/L (136-145); Total Protein 6.6 g/dL (6.6-8.7)
== END 2025-07-12 09:01 | disposition home or self-care (01) ==
LOC: LAB 09:02
PROVIDERS: PCP Family Medicine; Visit Provider Family Medicine
DX: E74.04 McArdle disease (principal)
CPT/HCPCS: 36415; 80053; 82140; 82550; 85025

== ENCOUNTER 2025-07-19 08:00 | Outpatient (CLI) | payer MEDICARE, SELFPAY ==
[2025-07-19 08:39] LABS: Hematocrit 47.2 % (37-53); Hemoglobin 15.70 g/dL (11.27-16.99); Mean Corpuscular HGB Conc 33.3 g/dL (30-55); Mean Corpuscular Hemoglobin 28.0 pg (27-33); Mean Corpuscular Volume 84.3 fl (82-101); Nucleated Red Blood Cells % 0 %; Platelet Count 168 10^3/cmm (157-399); Red Blood Count 5.60 10^6/uL (3.85-5.65); White Blood Count 5.61 10^3/uL (3.29-11.43)
[2025-07-19 08:55] LABS: Alanine Aminotransferase 24 U/L (0-41); Albumin Level 4.5 g/dL (3.5-5.2); Alkaline Phosphatase 58 U/L (40-130); Anion Gap 16.1 (5-19); Aspartate Amino Transferase 31 U/L (0-40); Blood Urea Nitrogen 16 mg/dL (6-20); Calcium 9.4 mg/dL (8.5-10.5); Carbon Dioxide 24 mmol/L (22-29); Chloride 103 mmol/L (98-107); Globulin 2.1 g/dL (1.3-4.6); Glucose 78 mg/dL (65-115); Osmolality Calculated 288 mOsm/kg (285-295); Potassium 4.1 mmol/L (3.5-5.1); Sodium 139 mmol/L (136-145); Total Protein 6.6 g/dL (6.6-8.7)
[2025-07-19 08:56] LABS: Ammonia 41 umol/L (16-60)
[2025-07-20 08:24] LABS: Thyroid Stimulating Hormone 1.68 uIU/mL (0.27-4.20)
== END 2025-07-19 08:01 | disposition home or self-care (01) ==
PROVIDERS: PCP Family Medicine; Visit Provider Family Medicine
DX: E05.90 Thyrotoxicosis, unspecified without thyrotoxic crisis or storm (principal)
CPT/HCPCS: 36415; 80053; 82140; 82550; 84443; 85025

== ENCOUNTER 2025-07-27 08:14 | Outpatient (CLI) | payer MEDICARE, SELFPAY ==
[2025-07-27 09:01] LABS: Hematocrit 51.0 % (37-53); Hemoglobin 17.00 g/dL (11.27-16.99); Mean Corpuscular HGB Conc 33.3 g/dL (30-55); Mean Corpuscular Hemoglobin 28.2 pg (27-33); Mean Corpuscular Volume 84.6 fl (82-101); Nucleated Red Blood Cells % 0 %; Platelet Count 132 10^3/cmm (157-399); Red Blood Count 6.03 10^6/uL (3.85-5.65); White Blood Count 4.66 10^3/uL (3.29-11.43)
[2025-07-27 09:17] LABS: Alanine Aminotransferase 29 U/L (0-41); Albumin Level 4.8 g/dL (3.5-5.2); Alkaline Phosphatase 62 U/L (40-130); Anion Gap 17.2 (5-19); Aspartate Amino Transferase 32 U/L (0-40); Blood Urea Nitrogen 23 mg/dL (6-20); Calcium 9.7 mg/dL (8.5-10.5); Carbon Dioxide 24 mmol/L (22-29); Chloride 103 mmol/L (98-107); Globulin 2.3 g/dL (1.3-4.6); Glucose 97 mg/dL (65-115); Osmolality Calculated 294 mOsm/kg (285-295); Potassium 4.2 mmol/L (3.5-5.1); Sodium 140 mmol/L (136-145); Total Protein 7.1 g/dL (6.6-8.7)
[2025-07-27 09:18] LABS: Ammonia 36 umol/L (16-60)
== END 2025-07-27 08:15 | disposition home or self-care (01) ==
PROVIDERS: PCP Family Medicine; Visit Provider Family Medicine
DX: E74.04 McArdle disease (principal)
CPT/HCPCS: 36415; 80053; 82140; 82550; 85025

== ENCOUNTER 2025-08-03 08:32 | Outpatient (CLI) | payer MEDICARE, SELFPAY ==
[2025-08-03 09:15] LABS: Hematocrit 51.8 % (37-53); Hemoglobin 17.40 g/dL (11.27-16.99); Mean Corpuscular HGB Conc 33.6 g/dL (30-55); Mean Corpuscular Hemoglobin 28.3 pg (27-33); Mean Corpuscular Volume 84.4 fl (82-101); Nucleated Red Blood Cells % 0 %; Platelet Count 161 10^3/cmm (157-399); Red Blood Count 6.14 10^6/uL (3.85-5.65); White Blood Count 6.29 10^3/uL (3.29-11.43)
[2025-08-03 09:38] LABS: Alanine Aminotransferase 32 U/L (0-41); Albumin Level 4.9 g/dL (3.5-5.2); Alkaline Phosphatase 69 U/L (40-130); Blood Urea Nitrogen 17 mg/dL (6-20); Calcium 9.6 mg/dL (8.5-10.5); Carbon Dioxide 24 mmol/L (22-29); Chloride 99 mmol/L (98-107); Globulin 2.2 g/dL (1.3-4.6); Glucose 159 mg/dL (65-115); Osmolality Calculated 287 mOsm/kg (285-295); Sodium 136 mmol/L (136-145); Total Protein 7.1 g/dL (6.6-8.7)
[2025-08-03 09:41] LABS: Slide Review Slide Review Perform
[2025-08-03 09:52] LABS: Ammonia 48 umol/L (16-60)
[2025-08-03 09:53] LABS: Anion Gap 16.8 (5-19); Aspartate Amino Transferase 43 U/L (0-40); Potassium 3.8 mmol/L (3.5-5.1)
== END 2025-08-03 08:33 | disposition home or self-care (01) ==
LOC: LAB 08:37
PROVIDERS: PCP Family Medicine; Visit Provider Family Medicine
DX: E74.04 McArdle disease (principal)
CPT/HCPCS: 36415; 80053; 82140; 82550; 85025

== ENCOUNTER 2025-08-15 07:50 | Outpatient (CLI) | payer MEDICARE, SELFPAY ==
[2025-08-15 08:35] LABS: Hematocrit 49.3 % (37-53); Hemoglobin 16.40 g/dL (11.27-16.99); Mean Corpuscular HGB Conc 33.3 g/dL (30-55); Mean Corpuscular Hemoglobin 27.8 pg (27-33); Mean Corpuscular Volume 83.7 fl (82-101); Nucleated Red Blood Cells % 0 %; Platelet Count 196 10^3/cmm (157-399); Red Blood Count 5.89 10^6/uL (3.85-5.65); White Blood Count 6.84 10^3/uL (3.29-11.43)
[2025-08-15 08:51] LABS: Alanine Aminotransferase 18 U/L (0-41); Albumin Level 4.5 g/dL (3.5-5.2); Alkaline Phosphatase 68 U/L (40-130); Anion Gap 16.7 (5-19); Aspartate Amino Transferase 19 U/L (0-40); Blood Urea Nitrogen 18 mg/dL (6-20); Calcium 9.3 mg/dL (8.5-10.5); Carbon Dioxide 22 mmol/L (22-29); Chloride 101 mmol/L (98-107); Globulin 2.1 g/dL (1.3-4.6); Glucose 94 mg/dL (65-115); Osmolality Calculated 284 mOsm/kg (285-295); Potassium 3.7 mmol/L (3.5-5.1); Sodium 136 mmol/L (136-145); Total Protein 6.6 g/dL (6.6-8.7)
== END 2025-08-15 07:51 | disposition home or self-care (01) ==
LOC: LAB 07:51
PROVIDERS: PCP Family Medicine; Visit Provider Family Medicine
DX: E74.04 McArdle disease (principal)
CPT/HCPCS: 36415; 80053; 82550; 85025

== ENCOUNTER 2025-08-23 13:42 | Outpatient (CLI) | payer MEDICARE, SELFPAY ==
[2025-08-23 14:29] LABS: Hematocrit 47.3 % (37-53); Hemoglobin 15.70 g/dL (11.27-16.99); Mean Corpuscular HGB Conc 33.2 g/dL (30-55); Mean Corpuscular Hemoglobin 28.4 pg (27-33); Mean Corpuscular Volume 85.5 fl (82-101); Nucleated Red Blood Cells % 0 %; Platelet Count 176 10^3/cmm (157-399); Red Blood Count 5.53 10^6/uL (3.85-5.65); White Blood Count 6.27 10^3/uL (3.29-11.43)
[2025-08-23 14:41] LABS: Ammonia 33 umol/L (16-60)
[2025-08-23 14:42] LABS: Alanine Aminotransferase 27 U/L (0-41); Albumin Level 4.5 g/dL (3.5-5.2); Alkaline Phosphatase 63 U/L (40-130); Aspartate Amino Transferase 26 U/L (0-40); Blood Urea Nitrogen 14 mg/dL (6-20); Calcium 9.2 mg/dL (8.5-10.5); Carbon Dioxide 25 mmol/L (22-29); Chloride 102 mmol/L (98-107); Globulin 2.0 g/dL (1.3-4.6); Glucose 121 mg/dL (65-115); Osmolality Calculated 288 mOsm/kg (285-295); Sodium 138 mmol/L (136-145); Total Protein 6.5 g/dL (6.6-8.7)
[2025-08-23 14:45] LABS: Anion Gap 14.5 (5-19); Potassium 3.5 mmol/L (3.5-5.1)
== END 2025-08-23 13:43 | disposition home or self-care (01) ==
PROVIDERS: PCP Family Medicine; Visit Provider Family Medicine
DX: E74.04 McArdle disease (principal)
CPT/HCPCS: 36415; 80053; 82140; 82550; 85025

== ENCOUNTER 2025-08-28 17:53 | Emergency (ER) | payer MEDICARE, SELFPAY ==
[2025-08-28 17:55] VITALS: BP 150/98; PULSE 88; RESP 16; TEMP 36.5; O2SAT 100; BMI 25.6
--- OUTSIDE RECORDS SUMMARY | 2025-08-28 17:57 | XMS_ITS | Encounter Summary ---
Author Organization [employer] [facility] Address [address] [place] [address] Phone Care Team Providers Care Railroad Track Repair Supervisor Name Role Phone Muna Perez MD Primary Care Provider [phone] Encounter Details Date Type Department Care Team (Late st Contact Info) Description 06/25/2019 Orders Only [facility] [address] [place] [address] Ivet Driscoll MA [address] [place] [address] Bay disease (HCC); Acute renal failure syndrome (HCC) Social History Tobacco Use Types Packs/Day Years Used Date Smoking Tobacco: Every Day Cigarettes Smokeless Tobacco: Never Alcohol Use Standard Drinks/Week Comments Never 0 (1 standard drink = 0.6 oz pur e alcohol) AUDIT-C Answer Date Recorded Frequency of Alcohol Consumption Never 01/07/2019 Average Number of Drinks Not on file 019 Frequency of Binge Drinking Not on file 12/25 Sex and Gender Information Value Date Recorded Sex Assigned at Not on file Legal Sex Male 12:58 PM EST Gender Identity Not on file Sexual Orientation Not on file documented as of this encounter Plan of Treatment Upcoming Encounters Date Type Department Care Team (Late st Contact Info) Description 10/13/2025 2:30 PM CIRCULAR SHEAR OPERATOR Office Visit [facility] [address] [place] [id number] Ruth Anderson, RHONDA [address] [facility] [address] [place] [address] documented as of this encounter Visit Diagnoses Diagnosis Bay disease (HCC) Acute renal failure syndrome (HCC) documented in this encounter Care Teams Railroad Track Repair Supervisor Relationship Specialty Start Date End Date Muna Perez MD [address] [facility] [address] [place] [address] PCP - General Nephrology 08/08/22 documented as of this encounter
--- OUTSIDE RECORDS SUMMARY | 2025-08-28 17:57 | XMS_ITS | Encounter Summary ---
Author Organization [employer] Address [address] [place] [address] Phone Care Team Providers Care Emt Dispatcher Name Role Phone Muna Perez MD Primary Care Provider [phone] Encounter Details Date Type Department Care Team (Late st Contact Info) Description 05/14/2019 Orders Only [facility] [address] [place] [address] Ivet Driscoll MA [address] [place] [address] Bay disease (HCC); Acute renal [...] st Contact Info) Description 10/13/2025 2:30 PM FIELD TECHNICAL ASSISTANT Office Visit [facility] [address] [place] [address] Ruth Anderson NP [address] [place] [address] documented as of this encounter Procedures Procedure Name Priority Date/Time Associated Diagnosis Comments CREATINE KINASE Routine 05/10/2019 1:22 PM CDT Bay disease (HCC) Acute renal failure syndrome (HCC) documented in this encounter Results * CK (05/10/2019 1:22 PM CDT) Creatine Kinase (CK/CPK) 219.0 U/L Blood specimen (specimen) Venous blood / Unknown 05/10/2019 1:22 PM CDT us Colby Reed MD LAB BLOOD ORDERABLES Fi nal Result documented in this encounter Visit Diagnoses Diagnosis Bay disease (HCC) Acute renal failure syndrome (HCC) documented in this encounter Care Teams Emt Dispatcher Relationship Specialty Start Date End Date Muna Perez MD [address] [place] [address] PCP - General Nephrology 08/08/22 documented as of this encounter
--- OUTSIDE RECORDS SUMMARY | 2025-08-28 17:57 | XMS_ITS | Encounter Summary ---
Author Organization [facility] Address [address] [place] [address] Phone Care Team Providers Care Police Lieutenant Precinct Name Role Phone Muna Perez MD Primary Care Provider [phone] Encounter Details Date Type Department Care Team (Late st Contact Info) Description 12/16/2018 Orders Only [facility] [employer] [address] [place] [address] Acute kidney failure with tubular necrosis (HCC); Bay disease (HCC) Social History Tobacco Use Types Packs/Day Years Used Date Smoking Tobacco: Never Assessed Sex and Gender Information Value Date Recorded Sex Assigned at Not on file Legal Sex Male 12:58 PM EST Gender Identity Not on file Sexual Orientation Not on file documented as of this encounter Plan of Treatment Upcoming Encounters Date Type Department Care Team (Late st Contact Info) Description 10/13/2025 2:30 PM PSYCHOLOGY TECHNICIAN Office Visit [facility] [employer] [address] [place] [address] Ruth Anderson NP [address] [place] [address] documented as of this encounter Visit Diagnoses Diagnosis Acute kidney failure with tubular necrosis (HCC) Bay disease (HCC) documented in this encounter Care Teams Police Lieutenant Precinct Relationship Specialty Start Date End Date Muna Perez MD [address] [place] [address] PCP - General Nephrology 08/08/22 documented as of this encounter
--- OUTSIDE RECORDS SUMMARY | 2025-08-28 17:57 | XMS_ITS | Encounter Summary ---
Author Organization [employer] Address [address] [facility] [address] [place] [address] Phone Care Team Providers Care Metal Sprayer Machined Parts Name Role Phone Muna Perez MD Primary Care Provider [phone] Encounter Details Date Type Department Care Team (Late st Contact Info) Description 05/28/2019 [facility] [employer] [address] [place] [address] Colby Reed MD [address] [address] Chronic kidney disease stage 4 (HCC) Social History Tobacco Use Types Packs/Day [...] on file documented as of this encounter Progress Notes * Colby Reed MD - 05/28/2019 2:05 AM CDT His labs including CK are stable. Does he have appointment at [place]? documented in this encounter Plan of Treatment Upcoming Encounters Date Type Department Care Team (Late st Contact Info) Description 10/13/2025 2:30 PM POPULATION GENETICIST Office Visit [facility] [address] [place] [address] Ruth Anderson NP [address] [place] [address] documented as of this encounter Procedures Procedure Name Priority Date/Time Associated Diagnosis Comments RENAL FUNCTION PANEL Routine 05/31/2019 9:40 AM CDT Chronic kidney disease stage 4 (HCC) documented in this encounter Results * (ABNORMAL) Renal function panel (05/31/2019 9:40 AM CDT) Albumin 3.7 3.5 - 5.0 g/dL BUN 16 4 - 21 mg/dL Calcium 8.2(A) 8.7 - 10.7 mg/dL Chloride 110(A) 99 - 108 Bicarbonate (CO2) 23 22 - 30 mmol/L Creatinine 1.90(A) 0.60 - 1.30 mg/dL eGFR 46.0 mL/min/1.7 3m*2 eGFR Non- 38.4 mL/min/1.7 3m*2 Glucose 90 Phosphorus, Serum 2.3 Potassium 4.5 3.4 - 5.5 Sodium 145 137 - 147 Blood specimen (specimen) Venous blood / Unknown 05/31/2019 9:40 AM CDT Narrative Ivet Driscoll MA - 05/31/2019 11:17 AM CDT [facility] [address] [place], [place] [address] us Colby Reed MD LAB BLOOD ORDERABLES Fi nal Result documented in this encounter Visit Diagnoses Diagnosis Chronic kidney disease stage 4 (HCC) documented in this encounter Care Teams Metal Sprayer Machined Parts Relationship Specialty Start Date End Date Muna Perez MD [address] [place] [address] PCP - General Nephrology 08/08/22 documented as of this encounter
--- OUTSIDE RECORDS SUMMARY | 2025-08-28 17:57 | XMS_ITS | Encounter Summary ---
Author Organization [employer] Address [address] [place] [address] Phone Care Team Providers Care Fitting Room Checker Name Role Phone Muna Perez MD Primary Care Provider [phone] Encounter Details Date Type Department Care Team (Late st Contact Info) Description 03/19/2019 Orders Only [facility] [address] [place] [address] Ivet Driscoll MA [address] [place] [address] Bay disease (HCC); Acute renal [...] st Contact Info) Description 10/13/2025 2:30 PM COAL PIPELINE OPERATOR Office Visit [facility] [address] [place] [address] Ruth Anderson, RHONDA [address] [facility] [address] [place] [address] documented as of this encounter Procedures Procedure Name Priority Date/Time Associated Diagnosis Comments CREATINE KINASE Routine 04/19/2019 8:00 AM CDT Bay disease (HCC) Acute renal failure syndrome (HCC) RENAL FUNCTION PANEL Routine 04/19/2019 8:00 AM CDT Bay disease (HCC) Acute renal failure syndrome (HCC) documented in this encounter Results * (ABNORMAL) Renal function panel (04/19/2019 8:00 AM CDT) Albumin 4.8 3.5 - 5.0 g/dL BUN 25(A) 4 - 21 mg/dL Calcium 9.2 8.7 - 10.7 mg/dL Chloride 103 99 - 108 Bicarbonate (CO2) 22 22 - 30 mmol/L Creatinine 2.80(A) 0.60 - 1.30 mg/dL eGFR Non- 24.6 mL/min/1.7 3m*2 Glucose 104 Phosphorus, Serum 2.1 Potassium 4.6 3.4 - 5.5 Sodium 140 137 - 147 Blood specimen (specimen) Venous blood / Unknown 04/19/2019 8:00 AM CDT Narrative Ivet Driscoll MA - 04/19/2019 8:23 AM CDT As ordered [facility] [address] [place] [address] Colby Reed MD LAB BLOOD ORDERABLES Fi nal Result * (ABNORMAL) CK (04/19/2019 8:00 AM CDT) CK-MB Index 99.0(A) 0.0 - 3.0 Blood specimen (specimen) Venous blood / Unknown 04/19/2019 8:00 AM CDT Colby Reed MD LAB BLOOD ORDERABLES Fi nal Result documented in this encounter Visit Diagnoses Diagnosis Bay disease (HCC) Acute renal failure syndrome (HCC) documented in this encounter Care Teams Fitting Room Checker Relationship Specialty Start Date End Date Muna Perez MD [address] [facility] [address] [place] [address] PCP - General Nephrology 08/08/22 documented as of this encounter
--- OUTSIDE RECORDS SUMMARY | 2025-08-28 17:57 | XMS_ITS | Encounter Summary ---
Author Organization [facility] Address [address] [address] Phone Care Team Providers Care Rn Training Name Role Phone Muna Perez MD Primary Care Provider [phone] Encounter Details Date Type Department Care Team (Late st Contact Info) Description 03/17/2019 Orders Only [facility] [address] [place] [address] Colby Reed MD [address] [address] Chronic kidney disease stage 4 [...] st Contact Info) Description 10/13/2025 2:30 PM FLASK HANDLER Office Visit [facility] [address] [address] uRth Anderson NP [address] [place] [address] documented as of this encounter Procedures Procedure Name Priority Date/Time Associated Diagnosis Comments CBC Routine 03/03/2019 Chronic kidney disease stage 4 (HCC) documented in this encounter Results * CBC (03/03/2019) WBC 7.7 K/uL Red Blood Cell Count 4.28 Hemoglobin 13.1 g/dL Hematocrit 39.1 % MCV 91.4 MCH 30.6 MCHC 33.5 RDW 13.9 Platelet Count 281 MPV 7.9 Absolute Neutrophils 4.5 Absolute Lymphocytes 2.2 Absolute Monocytes 0.5 Absolute Eosinophils 0.4 Absolute Basophils 0.1 Neutrophils 58.3 K/uL Lymphocytes 28.8 Monocytes 7.2 Eosinophils 4.8 Basophils 0.9 Blood specimen (specimen) 03/03/2019 Narrative Mack Figueroa MA - 03/03/2019 1:30 PM [facility] [address] [facility] [address] [address] Cholo Mcrae, [facility] DIRECT[facility] us Colby Reed MD LAB BLOOD ORDERABLES Fi nal Result documented in this encounter Visit Diagnoses Diagnosis Chronic kidney disease stage 4 (HCC) documented in this encounter Care Teams Rn Training Relationship Specialty Start Date End Date Muna Perez MD [address] [place] [address] PCP - General Nephrology 08/08/22 documented as of this encounter
--- OUTSIDE RECORDS SUMMARY | 2025-08-28 17:57 | XMS_ITS | Encounter Summary ---
Author Organization [facility] [employer] Address [address] [address] Phone Care Team Providers Care Obgyn Nurse Name Role Phone Muna Perez MD Primary Care Provider [phone] Encounter Details Date Type Department Care Team (Late st Contact Info) Description 07/20/2019 Orders Only [facility] [address] [place] [address] Colby Reed MD [address] [address] Chronic kidney disease stage 4 [...] st Contact Info) Description 10/13/2025 2:30 PM THERAPY AIDE Office Visit [facility] [address] [address] Ruth Anderson, RHONDA [address] [place] [address] documented as of this encounter Visit Diagnoses Diagnosis Chronic kidney disease stage 4 (HCC) documented in this encounter Care Teams Obgyn Nurse Relationship Specialty Start Date End Date Muna Perez MD [address] [place] [address] PCP - General Nephrology 08/08/22 documented as of this encounter
--- OUTSIDE RECORDS SUMMARY | 2025-08-28 17:57 | XMS_ITS | Encounter Summary ---
Author Organization [facility] [employer] [employer] Address [address] [place] [address] Phone Care Team Providers Care Starchmaker Name Role Phone Muna Perze MD Primary Care Provider [phone] Encounter Details Date Type Department Care Team (Late st Contact Info) Description 07/02/2019 Orders Only [facility] [address] [place] [address] Ivet Driscoll MA [address] [place] [address] Bay disease (HCC); Acute renal [...] st Contact Info) Description 10/13/2025 2:30 PM RN INTERVENTIONAL Office Visit [facility] [address] [place] [address] Ruth Anderson, RHONDA [address] [facility] [address] [place] [address] documented as of this encounter Visit Diagnoses Diagnosis Bay disease (HCC) Acute renal failure syndrome (HCC) documented in this encounter Care Teams Starchmaker Relationship Specialty Start Date End Date Muna Perez MD [address] [facility] [address] [place] [address] PCP - General Nephrology 08/08/22 documented as of this encounter
--- OUTSIDE RECORDS SUMMARY | 2025-08-28 17:57 | XMS_ITS | Encounter Summary ---
Author Organization [employer] Address [address] [place] [address] Phone Care Team Providers Care Associate Broker Name Role Phone Muna Perez MD Primary Care Provider [phone] Encounter Details Date Type Department Care Team (Late st Contact Info) Description 08/20/2019 Orders Only [facility] [address] [place] [address] Ivet Driscoll MA [address] [place] [address] Bay disease (HCC); Acute renal [...] st Contact Info) Description 10/13/2025 2:30 PM ACID PUMP OPERATOR Office Visit [facility] [address] [place] [address] Ruth Anderson, RHONDA [address] [facility] [address] [place] [address] documented as of this encounter Visit Diagnoses Diagnosis Bay disease (HCC) Acute renal failure syndrome (HCC) documented in this encounter Care Teams Associate Broker Relationship Specialty Start Date End Date Muna Perez MD [address] [facility] [address] [place] [address] PCP - General Nephrology 08/08/22 documented as of this encounter
--- OUTSIDE RECORDS SUMMARY | 2025-08-28 17:57 | XMS_ITS | Encounter Summary ---
Author Organization [employer] Address [address] [place] [address] Phone Care Team Providers Care Supervisor Cemetery Workers Name Role Phone Muna Perez MD Primary Care Provider [phone] Encounter Details Date Type Department Care Team (Late st Contact Info) Description 08/13/2019 Orders Only [facility] [address] [place] [address] Ivet Driscoll MA [address] [place] [address] Bay disease (HCC); Acute renal [...] st Contact Info) Description 10/13/2025 2:30 PM DETECTIVE BUREAU CHIEF Office Visit [facility] [address] [place] [address] Ruth Anderson, RHONDA [address] [facility] [address] [place] [address] documented as of this encounter Visit Diagnoses Diagnosis Bay disease (HCC) Acute renal failure syndrome (HCC) documented in this encounter Care Teams Supervisor Cemetery Workers Relationship Specialty Start Date End Date Muna Perez MD [address] [facility] [address] [place] [address] PCP - General Nephrology 08/08/22 documented as of this encounter
--- OUTSIDE RECORDS SUMMARY | 2025-08-28 17:57 | XMS_ITS | Encounter Summary ---
Author Organization [employer] Address [address] [place] [address] Phone Care Team Providers Care Mud Analysis Supervisor Name Role Phone Muna Perez MD Primary Care Provider [phone] Encounter Details Date Type Department Care Team (Late st Contact Info) Description 06/18/2019 Orders Only [facility] [address] [place] [address] Ivet Driscoll MA [address] [place] [address] Bay disease (HCC); Acute renal [...] st Contact Info) Description 10/13/2025 2:30 PM ELEVATOR REPAIRER HELPER Office Visit [facility] [address] [place] [address] Ruth Anderson, RHONDA [address] [facility] [address] [place] [address] documented as of this encounter Visit Diagnoses Diagnosis Bay disease (HCC) Acute renal failure syndrome (HCC) documented in this encounter Care Teams Mud Analysis Supervisor Relationship Specialty Start Date End Date Muna Perez MD [address] [facility] [address] [place] [address] PCP - General Nephrology 08/08/22 documented as of this encounter
--- OUTSIDE RECORDS SUMMARY | 2025-08-28 17:57 | XMS_ITS | Encounter Summary ---
Author Organization [employer] Address [address] [place] [address] Phone Care Team Providers Care Seam Stay Stitcher Name Role Phone Muna Perez MD Primary Care Provider [phone] Encounter Details Date Type Department Care Team (Late st Contact Info) Description 04/23/2019 Orders Only [facility] [address] [place] [address] Ivet Driscoll MA [address] [place] [address] Bay disease (HCC); Acute renal [...] st Contact Info) Description 10/13/2025 2:30 PM FRONT DESK AGENT Office Visit [facility] [address] [place] [address] Ruth Anderson, RHONDA [address] [facility] [address] [place] [address] documented as of this encounter Visit Diagnoses Diagnosis Bay disease (HCC) Acute renal failure syndrome (HCC) documented in this encounter Care Teams Seam Stay Stitcher Relationship Specialty Start Date End Date Muna Perez MD [address] [facility] [address] [place] [address] PCP - General Nephrology 08/08/22 documented as of this encounter
--- OUTSIDE RECORDS SUMMARY | 2025-08-28 17:57 | XMS_ITS | Encounter Summary ---
Author Organization [employer] Address [address] [place] [address] Phone Care Team Providers Care Nip Wrapper Name Role Phone Muna Perez MD Primary Care Provider [phone] Encounter Details Date Type Department Care Team (Late st Contact Info) Description 07/23/2019 Orders Only [facility] [address] [place] [address] Ivet Driscoll MA [address] [place] [address] Bay disease (HCC); Acute renal [...] st Contact Info) Description 10/13/2025 2:30 PM DYE RANGE OPERATOR Office Visit [facility] [address] [place] [address] Ruth Anderson, RHONDA [address] [facility] [address] [place] [address] documented as of this encounter Visit Diagnoses Diagnosis Bay disease (HCC) Acute renal failure syndrome (HCC) documented in this encounter Care Teams Nip Wrapper Relationship Specialty Start Date End Date Muna Perez MD [address] [facility] [address] [place] [address] PCP - General Nephrology 08/08/22 documented as of this encounter
--- OUTSIDE RECORDS SUMMARY | 2025-08-28 17:57 | XMS_ITS | Encounter Summary ---
Author Organization [facility] Address [address] [address] Phone Care Team Providers Care Rn Navigator Name Role Phone Muna Perez MD Primary Care Provider [phone] Encounter Details Date Type Department Care Team (Late st Contact Info) Description 06/04/2019 Orders Only [facility] [address] [place] [address] Colby Reed MD [address] [address] Chronic kidney disease stage 4 [...] st Contact Info) Description 10/13/2025 2:30 PM VETERINARY EPIDEMIOLOGIST Office Visit [facility] [address] [address] Ruth Anderson, RHONDA [address] [place] [address] documented as of this encounter Visit Diagnoses Diagnosis Chronic kidney disease stage 4 (HCC) documented in this encounter Care Teams Rn Navigator Relationship Specialty Start Date End Date Muna Perez MD [address] [place] [address] PCP - General Nephrology 08/08/22 documented as of this encounter
--- OUTSIDE RECORDS SUMMARY | 2025-08-28 17:57 | XMS_ITS | Encounter Summary ---
Author Organization [facility] [facility] [employer] Address [address] [place] [address] Phone Care Team Providers Care Dental Hygiene Professor Name Role Phone Muna Perez MD Primary Care Provider [phone] Encounter Details Date Type Department Care Team (Late st Contact Info) Description 05/21/2019 Orders Only [facility] [address] [place] [address] Ivet Driscoll MA [address] [place] [address] Bay disease (HCC); Acute renal [...] st Contact Info) Description 10/13/2025 2:30 PM MOLDER HELPER Office Visit [facility] [address] [place] [address] Ruth Anderson, RHONDA [address] [facility] [address] [place] [address] documented as of this encounter Visit Diagnoses Diagnosis Bay disease (HCC) Acute renal failure syndrome (HCC) documented in this encounter Care Teams Dental Hygiene Professor Relationship Specialty Start Date End Date Muna Perez MD [address] [facility] [address] [place] [address] PCP - General Nephrology 08/08/22 documented as of this encounter
--- OUTSIDE RECORDS SUMMARY | 2025-08-28 17:57 | XMS_ITS | Encounter Summary ---
Author Organization [employer] [facility] [employer] Address [address] [place] [address] Phone Care Team Providers Care Pack Room Operator Name Role Phone Muna Perez MD Primary Care Provider [phone] Encounter Details Date Type Department Care Team (Late st Contact Info) Description 02/15/2019 Orders Only [facility] [address] [place] [address] Ivet Driscoll MA [address] [place] [address] Acute kidney failure, not otherwise specified (HCC) Social History Tobacco Use Types Packs/Day [...] st Contact Info) Description 10/13/2025 2:30 PM SHOTGUN SHELL LOADING MACHINE OPERATOR Office Visit [facility] [address] [place] [address] Ruth Anderson, RHONDA [address] [place] [address] documented as of this encounter Visit Diagnoses Diagnosis Acute kidney failure, not otherwise specified (HCC) documented in this encounter Care Teams Pack Room Operator Relationship Specialty Start Date End Date Muna Perez MD [address] [place] [address] PCP - General Nephrology 08/08/22 documented as of this encounter
--- OUTSIDE RECORDS SUMMARY | 2025-08-28 17:57 | XMS_ITS | Encounter Summary ---
Author Organization [employer] Address [address] [place] [address] Phone Care Team Providers Care Diesel Bus Mechanic Name Role Phone Muna Perez MD Primary Care Provider Encounter Details Date Type Department Care Team (Late st Contact Info) Description 05/28/2019 Orders Only [facility] [address] [place] [address] Ivet Driscoll MA [address] [place] [address] Bay disease (HCC); Acute renal [...] st Contact Info) Description 10/13/2025 2:30 PM JAVA CONSULTANT Office Visit [facility] [address] [place] [address] Ruth Anderson NP [address] [place] [address] documented as of this encounter Procedures Procedure Name Priority Date/Time Associated Diagnosis Comments CREATINE KINASE Routine 05/31/2019 9:40 AM CDT Bay disease (HCC) Acute renal failure syndrome (HCC) documented in this encounter Results * CK (05/31/2019 9:40 AM CDT) Creatine Kinase (CK/CPK) 335.0 U/L Blood specimen (specimen) Venous blood / Unknown 05/31/2019 9:40 AM CDT Narrative Ivet Driscoll MA - 05/31/2019 11:17 AM CDT [facility] [address] [place] [address] Colby Reed MD LAB BLOOD ORDERABLES Fi nal Result documented in this encounter Visit Diagnoses Diagnosis Bay disease (HCC) Acute renal failure syndrome (HCC) documented in this encounter Care Teams Diesel Bus Mechanic Relationship Specialty Start Date End Date Muna Perez MD [address] [place] [address] PCP - General Nephrology 08/08/22 documented as of this encounter
--- OUTSIDE RECORDS SUMMARY | 2025-08-28 17:57 | XMS_ITS | Encounter Summary ---
Author Organization [place] [facility] Address [address] [address] Phone Care Team Providers Care District Sales Representative Name Role Phone Muna Perez MD Primary Care Provider [phone] Encounter Details Date Type Department Care Team (Late st Contact Info) Description 06/16/2019 Orders Only [facility] [address] [place] [address] Colby Reed MD [address] [address] Chronic kidney disease stage 4 [...] st Contact Info) Description 10/13/2025 2:30 PM AGRICULTURE INSPECTOR Office Visit [place] [facility] [address] [address] Ruth Anderson, RHONDA [address] [place] [address] documented as of this encounter Visit Diagnoses Diagnosis Chronic kidney disease stage 4 (HCC) documented in this encounter Care Teams District Sales Representative Relationship Specialty Start Date End Date Muna Perez MD [address] [place] [address] PCP - General Nephrology 08/08/22 documented as of this encounter
--- OUTSIDE RECORDS SUMMARY | 2025-08-28 17:57 | XMS_ITS | Encounter Summary ---
Author Organization [place] [facility] Address [address] [address] Phone Care Team Providers Care Graphics Artist Name Role Phone Muna Perez MD Primary Care Provider [phone] Encounter Details Date Type Department Care Team (Late st Contact Info) Description 05/21/2019 Orders Only [facility] [address] [place] [address] Colby Reed MD [address] [address] Chronic kidney disease stage 4 [...] st Contact Info) Description 10/13/2025 2:30 PM BACKING IN MACHINE TENDER Office Visit [place] [email or web address] [address] [address] Ruth Anderson, RHONDA [address] [place] [address] documented as of this encounter Visit Diagnoses Diagnosis Chronic kidney disease stage 4 (HCC) documented in this encounter Care Teams Graphics Artist Relationship Specialty Start Date End Date Muna Perez MD [address] [place] [address] PCP - General Nephrology 08/08/22 documented as of this encounter
--- OUTSIDE RECORDS SUMMARY | 2025-08-28 17:57 | XMS_ITS | Encounter Summary ---
Author Organization [employer] [employer] Address [address] [place] [address] Phone Care Team Providers Care Sweat Band Sewer Name Role Phone Muna Perez MD Primary Care Provider [phone] Encounter Details Date Type Department Care Team (Late st Contact Info) Description 04/21/2019 Orders Only [facility] [address] [place] [address] Ivet Driscoll MA [address] [place] [address] Bay disease (HCC); Acute renal failure syndrome (HCC); Essential hypertension Social History Tobacco Use Types Packs/Day Years [...] st Contact Info) Description 10/13/2025 2:30 PM FAMILY PRACTICE MEDICAL DOCTOR Office Visit [facility] [address] [place] [address] Ruth Anderson NP [address] [place] [address] documented as of this encounter Visit Diagnoses Diagnosis Bay disease (HCC) Acute renal failure syndrome (HCC) Essential hypertension documented in this encounter Care Teams Sweat Band Sewer Relationship Specialty Start Date End Date Muna Perez MD [address] [facility] [address] [place] [address] PCP - General Nephrology 08/08/22 documented as of this encounter
--- OUTSIDE RECORDS SUMMARY | 2025-08-28 17:57 | XMS_ITS | Encounter Summary ---
Author Organization [place] [facility] Address [address] [address] Phone Care Team Providers Care Greens Picker Name Role Phone Muna Perez MD Primary Care Provider [phone] Encounter Details Date Type Department Care Team (Late st Contact Info) Description 04/01/2019 Orders Only [facility] [address] [place] [address] Colby Reed MD [address] [address] Chronic kidney disease stage 4 [...] st Contact Info) Description 10/13/2025 2:30 PM SAFETY AIDE Office Visit [place] [employer] [facility] [address] [address] Ruth Anderson NP [address] [place] [address] documented as of this encounter Procedures Procedure Name Priority Date/Time Associated Diagnosis Comments RENAL FUNCTION PANEL Routine 03/04/2019 Chronic kidney disease stage 4 (HCC) documented in this encounter Results * (ABNORMAL) RFP (03/04/2019) Albumin 4.7 3.5 - 5.0 g/dL BUN 43(A) 4 - 21 mg/dL Calcium 9.8 8.7 - 10.7 mg/dL Chloride 105 99 - 108 Bicarbonate (CO2) 22 22 - 30 mmol/L Creatinine 4.20(A) 0.60 - 1.30 mg/dL eGFR 19.0 mL/min/1.7 3m*2 eGFR Non- 15.4 mL/min/1.7 3m*2 Glucose 99 Phosphorus, Serum 3.4 Potassium 5.7(A) 3.4 - 5.5 Sodium 139 137 - 147 Blood specimen (specimen) 03/04/2019 Narrative Halle Guerrier MA - 03/05/2019 2:16 PM CDT As Ordered Lab [facility] Clinical Laboratory [address] [place] [address] [place] Colby Reed MD LAB BLOOD ORDERABLES Fi nal Result documented in this encounter Visit Diagnoses Diagnosis Chronic kidney disease stage 4 (HCC) documented in this encounter Care Teams Greens Picker Relationship Specialty Start Date End Date Muna Perez MD [address] [place] [address] PCP - General Nephrology 08/08/22 documented as of this encounter
--- OUTSIDE RECORDS SUMMARY | 2025-08-28 17:57 | XMS_ITS | Encounter Summary ---
Author Organization [place] [facility] [employer] Address [address] [address] Phone Care Team Providers Care Sales Hunter Name Role Phone Muna Perez MD Primary Care Provider [phone] Encounter Details Date Type Department Care Team (Late st Contact Info) Description 04/23/2019 Orders Only [facility] [address] [place] [address] Colby Reed MD [address] [address] Chronic kidney disease stage 4 [...] st Contact Info) Description 10/13/2025 2:30 PM PROJECT ACCOUNT MANAGER Office Visit [place] [email or web address] [address] [address] Ruth Anderson, RHONDA [address] [place] [address] documented as of this encounter Visit Diagnoses Diagnosis Chronic kidney disease stage 4 (HCC) documented in this encounter Care Teams Sales Hunter Relationship Specialty Start Date End Date Muna Perez MD [address] [place] [address] PCP - General Nephrology 08/08/22 documented as of this encounter
--- OUTSIDE RECORDS SUMMARY | 2025-08-28 17:57 | XMS_ITS | Encounter Summary ---
Author Organization [employer] Address [address] [place] [address] Phone Care Team Providers Care Wool Hat Forming Machine Tender Name Role Phone Muna Perez MD Primary Care Provider [phone] Encounter Details Date Type Department Care Team (Late st Contact Info) Description 03/26/2019 Orders Only [facility] [address] [place] [address] Ivet Driscoll MA [address] [place] [address] Bay disease (HCC); Acute renal [...] st Contact Info) Description 10/13/2025 2:30 PM PRINCIPAL SECURITY ARCHITECT Office Visit [facility] [address] [place] [address] Ruth Anderson, RHONDA [address] [facility] [address] [place] [address] documented as of this encounter Visit Diagnoses Diagnosis Bay disease (HCC) Acute renal failure syndrome (HCC) documented in this encounter Care Teams Wool Hat Forming Machine Tender Relationship Specialty Start Date End Date Muna Perez MD [address] [facility] [address] [place] [address] PCP - General Nephrology 08/08/22 documented as of this encounter
--- OUTSIDE RECORDS SUMMARY | 2025-08-28 17:57 | XMS_ITS | Encounter Summary ---
Author Organization [employer] Address [address] [place] [address] Phone Care Team Providers Care Toe Lining Closer Name Role Phone Muna Perez MD Primary Care Provider Encounter Details Date Type Department Care Team (Late st Contact Info) Description 06/11/2019 Orders Only [facility] [address] [place] [address] Ivet Driscoll MA [address] [place] [address] Bay disease (HCC); Acute renal [...] st Contact Info) Description 10/13/2025 2:30 PM ELECTROENCEPHALOGRAPHIC TECHNOLOGIST Office Visit [facility] [address] [place] [address] Ruth Anderson, RHONDA [address] [facility] [address] [place] [address] documented as of this encounter Visit Diagnoses Diagnosis Bay disease (HCC) Acute renal failure syndrome (HCC) documented in this encounter Care Teams Toe Lining Closer Relationship Specialty Start Date End Date Muna Perez MD [address] [facility] [address] [place] [address] PCP - General Nephrology 08/08/22 documented as of this encounter
--- OUTSIDE RECORDS SUMMARY | 2025-08-28 17:57 | XMS_ITS | Encounter Summary ---
Author Organization [place] [facility] Address [address] [address] Phone Care Team Providers Care Crate Builder Name Role Phone Muna Perez MD Primary Care Provider [phone] Encounter Details Date Type Department Care Team (Late st Contact Info) Description 03/03/2019 Orders Only [facility] [address] [place] [address] Colby Reed MD [address] [address] Chronic kidney disease stage 4 [...] st Contact Info) Description 10/13/2025 2:30 PM POTTERY DECORATOR Office Visit [place] [facility] [address] [address] Ruth Anderson NP [address] [place] [address] documented as of this encounter Procedures Procedure Name Priority Date/Time Associated Diagnosis Comments RENAL FUNCTION PANEL Routine 03/03/2019 Chronic kidney disease stage 4 (HCC) documented in this encounter Results * (ABNORMAL) Renal function panel (03/03/2019) Albumin 4.6 3.5 - 5.0 g/dL BUN 45(A) 4 - 21 mg/dL Calcium 9.5 8.7 - 10.7 mg/dL Chloride 105 99 - 108 Bicarbonate (CO2) 22 22 - 30 mmol/L Creatinine 4.80(A) 0.60 - 1.30 mg/dL eGFR 13.2 mL/min/1.7 3m*2 eGFR Non- 16.0 mL/min/1.7 3m*2 Glucose 81 Phosphorus, Serum 3.6 Potassium 5.0 3.4 - 5.5 Sodium 139 137 - 147 Blood specimen (specimen) Venous blood / Unknown 03/03/2019 Narrative Mack Figueroa MA - 03/03/2019 1:26 PM T [facility] Clinical Laboratory [address] [facility] [address] [address] Cholo Mcrae, [facility] DIRECTOR us Colby Reed MD LAB BLOOD ORDERABLES Fi nal Result documented in this encounter Visit Diagnoses Diagnosis Chronic kidney disease stage 4 (HCC) documented in this encounter Care Teams Crate Builder Relationship Specialty Start Date End Date Muna Perez MD [address] [place] [address] PCP - General Nephrology 08/08/22 documented as of this encounter
--- OUTSIDE RECORDS SUMMARY | 2025-08-28 17:57 | XMS_ITS | Encounter Summary ---
Author Organization [employer] Address [address] [place] [address] Phone Care Team Providers Care Secretary Book Keeper Name Role Phone Muna Perez MD Primary Care Provider [phone] Encounter Details Date Type Department Care Team (Late st Contact Info) Description 07/09/2019 Orders Only [facility] [address] [place] [address] Ivet Driscoll MA [address] [place] [address] Bay disease (HCC); Acute renal [...] st Contact Info) Description 10/13/2025 2:30 PM STORAGE BRINE WORKER Office Visit [facility] [address] [place] [address] Ruth Anderson, RHONDA [address] [facility] [address] [place] [address] documented as of this encounter Visit Diagnoses Diagnosis Bay disease (HCC) Acute renal failure syndrome (HCC) documented in this encounter Care Teams Secretary Book Keeper Relationship Specialty Start Date End Date Muna Perez MD [address] [facility] [address] [place] [address] PCP - General Nephrology 08/08/22 documented as of this encounter
--- OUTSIDE RECORDS SUMMARY | 2025-08-28 17:57 | XMS_ITS | Encounter Summary ---
Author Organization [place] [facility] [employer] Address [address] [address] Phone Care Team Providers Care Military Administrative Technician Name Role Phone Muna Perez MD Primary Care Provider [phone] Reason for Referral * Consultation (Routine) - Canceled Specialty Diagnoses / Procedures Referred By Enmanuel martinez Referred To Contact Nephrology Diagnoses Stage 5 chronic kidney disease (HCC) Colby Reed MD [address] [address] Phone: tel: fax: [facility] [address] [place] [address] Phone: tel: fax: Referral ID Status Reason Start Date Expiration Date V isits Requested Visits Authorized [id number] Canceled 04/08/2019 10/05/2019 1 1 Encounter Details Date Type Department Care Team (Late st Contact Info) Description 04/08/2019 Ancillary Orders [facility] [address] [address] Colby Reed MD [address] [address] Stage 5 chronic kidney disease (HCC) (Primary Dx) Social History Tobacco Use Types Packs/Day Years [...] st Contact Info) Description 10/13/2025 2:30 PM ACCOUNTING SYSTEMS ANALYST Office Visit [facility] [address] [place] [address] Ruth Anderson NP [address] [place] [address] Scheduled Referrals Name Type Priority Associated Diagnoses Order Schedule Ambulatory Referral for Dialysis Initiation Outpatient Referral Routine Stage 5 chronic kidney disease (HCC) Expected: 04/08/2019, Expires: 05/08/2020 documented as of this encounter Visit Diagnoses Diagnosis Stage 5 chronic kidney disease (HCC)- Primary documented in this encounter Care Teams Military Administrative Technician Relationship Specialty Start Date End Date Muna Perez MD [address] [place] [address] PCP - General Nephrology 08/08/22 documented as of this encounter
--- OUTSIDE RECORDS SUMMARY | 2025-08-28 17:57 | XMS_ITS | Encounter Summary ---
Author Organization [facility] Address [address] [place] [address] Phone Care Team Providers Care Reeling And Tubing Machine Operator Name Role Phone Muna Perez MD Primary Care Provider [phone] Encounter Details Date Type Department Care Team (Late st Contact Info) Description 04/02/2019 Orders Only [facility] [address] [place] [address] Ivet Driscoll MA [address] [place] [address] Bay disease (HCC); Acute renal [...] st Contact Info) Description 10/13/2025 2:30 PM PRESIDENT COMMERCIAL BANK Office Visit [facility] [address] [place] [address] Ruth Anderson, RHONDA [address] [facility] [address] [place] [address] documented as of this encounter Visit Diagnoses Diagnosis Bay disease (HCC) Acute renal failure syndrome (HCC) documented in this encounter Care Teams Reeling And Tubing Machine Operator Relationship Specialty Start Date End Date Muna Perez MD [address] [facility] [address] [place] [address] PCP - General Nephrology 08/08/22 documented as of this encounter
--- OUTSIDE RECORDS SUMMARY | 2025-08-28 17:57 | XMS_ITS | Encounter Summary ---
Author Organization [employer] Address [address] [place] [address] Phone Care Team Providers Care Point Of Care Specialist Name Role Phone Muna Perez MD Primary Care Provider [phone] Encounter Details Date Type Department Care Team (Late st Contact Info) Description 07/30/2019 Orders Only [facility] [address] [place] [address] Ivet Driscoll MA [address] [place] [address] Bay disease (HCC); Acute renal [...] st Contact Info) Description 10/13/2025 2:30 PM ELECTRONIC TEST TECHNICIAN Office Visit [facility] [address] [place] [address] Ruth Anderson, RHONDA [address] [facility] [address] [place] [address] documented as of this encounter Visit Diagnoses Diagnosis Bay disease (HCC) Acute renal failure syndrome (HCC) documented in this encounter Care Teams Point Of Care Specialist Relationship Specialty Start Date End Date Muna Perez MD [address] [facility] [address] [place] [address] PCP - General Nephrology 08/08/22 documented as of this encounter
--- OUTSIDE RECORDS SUMMARY | 2025-08-28 17:57 | XMS_ITS | Encounter Summary ---
Author Organization [facility] [employer] [employer] Address [address] [place] [address] Phone Care Team Providers Care Youth Ministry Director Name Role Phone Muna Perez MD Primary Care Provider [phone] Encounter Details Date Type Department Care Team (Late st Contact Info) Description 06/04/2019 Orders Only [facility] [address] [place] [address] Ivet Driscoll MA [address] [place] [address] Bay disease (HCC); Acute renal [...] st Contact Info) Description 10/13/2025 2:30 PM TOPPIECE CHOPPER Office Visit [employer] [facility] [address] [place] [address] Ruth Anderson, RHONDA [address] [facility] [address] [place] [address] documented as of this encounter Visit Diagnoses Diagnosis Bay disease (HCC) Acute renal failure syndrome (HCC) documented in this encounter Care Teams Youth Ministry Director Relationship Specialty Start Date End Date Muna Perez MD [address] [facility] [address] [place] [address] PCP - General Nephrology 08/08/22 documented as of this encounter
--- OUTSIDE RECORDS SUMMARY | 2025-08-28 17:57 | XMS_ITS | Encounter Summary ---
Author Organization [employer] Address [address] [place] [address] Phone Care Team Providers Care School Director Name Role Phone Muna Perez MD Primary Care Provider [phone] Encounter Details Date Type Department Care Team (Late st Contact Info) Description 09/03/2019 Orders Only [facility] [address] [place] [address] Ivet Driscoll MA [address] [place] [address] Bay disease (HCC); Acute renal [...] st Contact Info) Description 10/13/2025 2:30 PM RESPIRATORY CARE ASSISTANT Office Visit [facility] [address] [place] [address] Ruth Anderson, RHONDA [address] [facility] [address] [place] [address] documented as of this encounter Visit Diagnoses Diagnosis Bay disease (HCC) Acute renal failure syndrome (HCC) documented in this encounter Care Teams School Director Relationship Specialty Start Date End Date Muna Perez MD [address] [facility] [address] [place] [address] PCP - General Nephrology 08/08/22 documented as of this encounter
--- OUTSIDE RECORDS SUMMARY | 2025-08-28 17:57 | XMS_ITS | Encounter Summary ---
Author Organization [place] [employer] Address [address] [address] Phone Care Team Providers Care Zinc Miner Name Role Phone Muna Perez MD Primary Care Provider [phone] Encounter Details Date Type Department Care Team (Late st Contact Info) Description 04/30/2019 Orders Only [facility] [address] [place] [address] Colby Reed MD [address] [address] Chronic kidney disease stage 4 [...] st Contact Info) Description 10/13/2025 2:30 PM PIECE PRESSER Office Visit [facility] [address] [address] Ruth Anderson, RHONDA [address] [place] [address] documented as of this encounter Visit Diagnoses Diagnosis Chronic kidney disease stage 4 (HCC) documented in this encounter Care Teams Zinc Miner Relationship Specialty Start Date End Date Muna Perez MD [address] [place] [address] PCP - General Nephrology 08/08/22 documented as of this encounter
--- OUTSIDE RECORDS SUMMARY | 2025-08-28 17:57 | XMS_ITS | Encounter Summary ---
Author Organization [place] [employer] Address [address] [place] [address] Phone Care Team Providers Care Log Snaker Name Role Phone Muna Perez MD Primary Care Provider [phone] Encounter Details Date Type Department Care Team (Late st Contact Info) Description 03/09/2019 Orders Only [facility] [address] [place] [address] Ivet Driscoll MA [address] [place] [address] Acute renal failure syndrome (HCC) Social History [...] st Contact Info) Description 10/13/2025 2:30 PM JAPANESE INTERPRETER Office Visit [facility] [address] [place] [address] Ruth Anderson NP [address] [place] [address] documented as of this encounter Procedures Procedure Name Priority Date/Time Associated Diagnosis Comments RENAL FUNCTION PANEL Routine 03/09/2019 7:48 AM CDT Acute renal failure syndrome (HCC) documented in this encounter Results * (ABNORMAL) Renal function panel (03/09/2019 7:48 AM CDT) Albumin 4.8 3.5 - 5.0 g/dL BUN 42(A) 4 - 21 mg/dL Calcium 9.4 8.7 - 10.7 mg/dL Chloride 108 99 - 108 Bicarbonate (CO2) 19(A) 22 - 30 mmol/L Creatinine 3.40(A) 0.60 - 1.30 mg/dL eGFR 24.0 mL/min/1.7 3m*2 eGFR Non- 20.0 mL/min/1.7 3m*2 Glucose 91 Phosphorus, Serum 4.2 Potassium 5.0 3.4 - 5.5 Sodium 140 137 - 147 Total Protein, Serum 7.5 AST (SGOT) 79 U/L ALT (SGPT) 24 U/L Alkaline Phosphatase 78 U/L Blood specimen (specimen) Venous blood / Unknown 03/09/2019 7:48 AM CDT Narrative Ivet Driscoll MA - 03/09/2019 7:49 AM CDT [facility] Clinical Laboratory [address] [place] [address] [place] Colby Reed MD LAB BLOOD ORDERABLES Fi nal Result documented in this encounter Visit Diagnoses Diagnosis Acute renal failure syndrome (HCC) documented in this encounter Care Teams Log Snaker Relationship Specialty Start Date End Date Muna Perez MD [address] [place] [address] PCP - General Nephrology 08/08/22 documented as of this encounter
--- OUTSIDE RECORDS SUMMARY | 2025-08-28 17:57 | XMS_ITS | Encounter Summary ---
Author Organization [facility] Address [address] [address] Phone Care Team Providers Care Associate Agent Insurance Sales Name Role Phone Muna Perze MD Primary Care Provider [phone] Encounter Details Date Type Department Care Team (Late st Contact Info) Description 05/14/2019 Orders Only [facility] [address] [place] [address] Colby Reed MD [address] [address] Chronic kidney disease stage 4 [...] st Contact Info) Description 10/13/2025 2:30 PM BARREL LINE OPERATOR Office Visit [facility] [employer] [address] [address] Ruth Anderson NP [address] [place] [address] documented as of this encounter Procedures Procedure Name Priority Date/Time Associated Diagnosis Comments RENAL FUNCTION PANEL Routine 05/10/2019 1:22 PM CDT Chronic kidney disease stage 4 (HCC) documented in this encounter Results * (ABNORMAL) Renal function panel (05/10/2019 1:22 PM CDT) Albumin 4.6 3.5 - 5.0 g/dL BUN 33(A) 4 - 21 mg/dL Calcium 9.2 8.7 - 10.7 mg/dL Chloride 104 99 - 108 Bicarbonate (CO2) 25 22 - 30 mmol/L Creatinine 2.50(A) 0.60 - 1.30 mg/dL eGFR Non- 28.1 mL/min/1.7 3m*2 Glucose 88 Phosphorus, Serum 3.2 Potassium 4.5 3.4 - 5.5 Sodium 140 137 - 147 Blood specimen (specimen) Venous blood / Unknown 05/10/2019 1:22 PM CDT Ivet Chow MA - 05/10/2019 1:23 PM CDT [facility] Clinical Laboratory [address] [place], [place] [address] us Colby Reed MD LAB BLOOD ORDERABLES Fi nal Result documented in this encounter Visit Diagnoses Diagnosis Chronic kidney disease stage 4 (HCC) documented in this encounter Care Teams Associate Agent Insurance Sales Relationship Specialty Start Date End Date Muna Perez MD [address] [place] [address] PCP - General Nephrology 08/08/22 documented as of this encounter
--- OUTSIDE RECORDS SUMMARY | 2025-08-28 17:57 | XMS_ITS | Clinical Summary ---
Author Organization [facility] [employer] Address [address] [place] [address] Phone Care Team Providers Care Plug Cutter Name Role Phone Muna Perez MD Primary Care Provider [phone] Allergies Active Allergy Reactions Criticality Noted Date Comments Zolpidem 01/07/2019 Sleep walking Droperidol Anxiety Low 01/07/2019 Tramadol Anxiety Low 01/07/2019 Tuberculin, Ppd High 05/06/2023 Other reaction(s): ALGY-Rash Medications * This document contains information received from the source organization and may not represent a complete record from that organization. Vitamin D, Cholecalciferol , 1000 units tablet Take by mouth 1 (one) time each day Activ e aspirin 81 MG chewable tablet Chew 81 mg daily Active furosemide (LASIX) 20 MG tablet Take 20 mg by mouth 1 (one) time each day if needed Active isosorbide mononitrate (IMDUR) 30 MG 24 hr tablet Take 30 mg by mouth in the morning and 30 mg in the evening. Do not crush or chew. . Active ondansetron (ZOFRAN) 4 MG tablet Take 4 mg by mouth every 8 (eight) hours if needed for nausea or vomiting Active clopidogrel (PLAVIX) 75 MG tablet Take 75 mg by mouth 1 (one) time each day 08/12/20 23 Active potassium chloride (KLOR-CON M10) 10 MEQ CR tablet Take 10 mEq by mouth in the morning and 10 mEq in the evening. 07/18/20 23 Active testosterone cypionate (DEPO-TESTOTERO NE) 200 MG/ML injection INJECT 1 MILLILITER INTRAMUSCULARLY EVERY 2 WEEKS 07/24/20 23 Active traZODone (DESYREL) 150 MG tablet Take 150 mg by mouth 1 (one) time each day in the evening 08/12/20 23 Active amLODIPine (NORVASC) 10 MG tablet TAKE 1 TABLET BY MOUTH EVERY DAY 90 tablet 07/09/20 24 Active LORazepam (ATIVAN) 0.5 MG tablet Take 0.5 mg by mouth every 6 (six) hours if needed 12/15/19 25 Active metoprolol tartrate (LOPRESSOR) 50 MG tablet Take 50 mg by mouth in the morning and 50 mg in the evening. Active HYDROcodone-ricky taminophen (LORCET PLUS) 10-325 MG per tablet Take 1 tablet by mouth every 6 (six) hours if needed Active Active Problems Problem Noted Date Diagnosed Date Lesion of urinary bladder 02/18/2024 Bipolar I disorder 02/18/2024 Cardiovascular stress test abnormal 02/18/2024 Coronary arteriosclerosis 02/18/2024 Urgent desire to urinate 02/18/2024 Mediastinal lymphadenopathy 04/01/2023 Diastolic heart failure 05/29/2022 Stage 3b chronic kidney disease 08/08/2020 Overview (10/30/2020): Update for Diagnosis Load Nicotine dependence 12/12/2019 Hyperammonemia 10/22/2019 Acute nontraumatic kidney injury 02/28/2019 Essential hypertension 10/28/2018 Obstructive sleep apnea syndrome 10/28/2018 Anemia 01/19/2013 Bay disease 10/27/2009 Hyperlipidemia 08/30/2009 Immunizations Immunization Administration Dates Next Due Hepatitis B 04/24/2004 Influenza TIV (IM) 07/16/2018 Influenza, Quadrivalent, With Preservative 07/30 MMR 04/24/2004 Family History Medical History Relation Comments Diabetes Mother Heart disease Mother Hypertension Mother Relation Status Comments Father Mother Social History Tobacco Use Types Packs/Day Years Used Date Smoking Tobacco: Former Cigarettes Smokeless Tobacco: Never Tobacco Cessation:Counseling Given: Not Answered Alcohol Use Standard Drinks/Week Comments Never 0 (1 standard drink = 0.6 oz pur e alcohol) AUDIT-C Answer Date Recorded Frequency of Alcohol Consumption Never 01/07/2019 Average Number of Drinks Not on file 03/14/2 019 Frequency of Binge Drinking Not on file 12/25 Sex and Gender Information Value Date Recorded Sex Assigned at Not on file Legal Sex Male 12:58 PM EST Gender Identity Not on file Sexual Orientation Not on file Last Filed Vital Signs Vital Sign Reading Time Taken Comments Blood Pressure 140/88 04/25/2025 1:22 PM CDT Pulse 66 01/03/2025 2:40 PM CDT Temperature 36.1 C (96.9 F) 01/29/2021 9:09 AM CDT Respiratory Rate - - Oxygen Saturation 97% 01/03/2025 2:40 PM CDT Inhaled Oxygen Concentration - - Weight 86.6 kg (191 lb) 04/25/2025 1:22 PM CDT Height 185.4 cm (6' 1 ) 04/25/2025 1:22 PM CDT Body Mass Index 25.2 04/25/2025 1:22 PM CDT Plan of Treatment Upcoming Encounters Date Type Department Care Team (Late st Contact Info) Description 10/13/2025 2:30 PM MD SENIOR RESEARCH SCIENTIST Office Visit [facility] [address] [place] [address] Ruth Anderson NP [address] [place] [address] Health Maintenance Due Date Last Done Comments Hepatitis B Vaccine (1 of 3 - 19+ 3-dose series) 1992 04/24/2004 Pneumococcal Vaccine: 50+ Ye ars (1 of 2 - PCV) 1992 Colorectal Cancer Screening: Annual FOBT 2022 Colorectal Cancer Screening: Colonoscopy 2022 Colorectal Cancer Screening: Sigmoidoscopy 2022 Influenza Vaccine (#1) 2025 , 07/30/2019, 07/16/2018 Insurance [facility] Medicare Care Teams Plug Cutter Relationship Specialty Start Date End Date Muna Perez MD [address] [address] PCP - General Nephrology 08/08/22
--- OUTSIDE RECORDS SUMMARY | 2025-08-28 17:57 | XMS_ITS | Encounter Summary ---
Author Organization [facility] [employer] Address [address] [place] [address] Phone Care Team Providers Care Cupola Repairer Name Role Phone Muna Perez MD Primary Care Provider [phone] Encounter Details Date Type Department Care Team (Late st Contact Info) Description 07/16/2019 Orders Only [facility] [employer] [address] [place] [address] Ivet Driscoll MA [address] [place] [address] Bay disease (HCC); Acute renal [...] Progress Notes * Colby Reed MD - 07/16/2019 2:05 AM CDT Will review labs at his appointment. documented in this encounter Plan of Treatment Upcoming Encounters Date Type Department Care Team (Late st Contact Info) Description 10/13/2025 2:30 PM EVP AND CHIEF OPERATING OFFICER Office Visit [facility] [address] [place] [address] Ruth Anderson NP [address] [place] [address] documented as of this encounter Procedures Procedure Name Priority Date/Time Associated Diagnosis Comments CREATINE KINASE Routine 07/19/2019 7:30 AM CDT Bay disease (HCC) Acute renal failure syndrome (HCC) RENAL FUNCTION PANEL Routine 07/19/2019 7:30 AM CDT Bay disease (HCC) Acute renal failure syndrome (HCC) documented in this encounter Results * (ABNORMAL) Renal function panel (07/19/2019 7:30 AM CDT) Albumin 4.8 3.5 - 5.0 g/dL BUN 17 4 - 21 mg/dL Calcium 10.1 8.7 - 10.7 mg/dL Chloride 105 99 - 108 Bicarbonate (CO2) 22 22 - 30 mmol/L Creatinine 2.30(A) 0.60 - 1.30 mg/dL eGFR Non- 30.8 mL/min/1.7 3m*2 Glucose 87 Phosphorus, Serum 3.1 Potassium 4.2 3.4 - 5.5 Sodium 141 137 - 147 Blood specimen (specimen) Venous blood / Unknown 07/19/2019 7:30 AM CDT Narrative Patricia Ramirez MA - 07/19/2019 12:32 PM CDT [facility] Clinical Laboratory [address] [place] [address] [place] Colby Reed MD LAB BLOOD ORDERABLES Fi nal Result * CK (07/19/2019 7:30 AM CDT) Creatine Kinase (CK/CPK) 138.0 U/L Blood specimen (specimen) Venous blood / Unknown 07/19/2019 7:30 AM CDT Narrative Patricia RamirezHANH - 07/19/2019 12:30 PM CDT [facility] Clinical Laboratory [address] [place], [place] [address] us Colby Reed MD LAB BLOOD ORDERABLES Fi nal Result documented in this encounter Visit Diagnoses Diagnosis Bay disease (HCC) Acute renal failure syndrome (HCC) documented in this encounter Care Teams Cupola Repairer Relationship Specialty Start Date End Date Muna Perez MD [address] [id number] PCP - General Nephrology 08/08/22 documented as of this encounter
--- OUTSIDE RECORDS SUMMARY | 2025-08-28 17:57 | XMS_ITS | Encounter Summary ---
Author Organization [facility] [employer] Address [address] [place] [address] Phone Care Team Providers Care Retail Consultant Name Role Phone Muna Perez MD Primary Care Provider [phone] Encounter Details Date Type Department Care Team (Late st Contact Info) Description 08/27/2019 Orders Only [facility] [address] [place] [address] Ivet Driscoll MA [address] [place] [address] Bay disease (HCC); Acute renal [...] st Contact Info) Description 10/13/2025 2:30 PM PHOTOGRAPHER LITHOGRAPHIC Office Visit [facility] [address] [place] [address] Ruth Anderson, RHONDA [address] [facility] [address] [place] [address] documented as of this encounter Visit Diagnoses Diagnosis Bay disease (HCC) Acute renal failure syndrome (HCC) documented in this encounter Care Teams Retail Consultant Relationship Specialty Start Date End Date Muna Perez MD [address] [facility] [address] [place] [address] PCP - General Nephrology 08/08/22 documented as of this encounter
--- OUTSIDE RECORDS SUMMARY | 2025-08-28 17:57 | XMS_ITS | Encounter Summary ---
Author Organization [facility] [employer] Address [address] [place] [address] Phone Care Team Providers Care Atmospheric Technician Name Role Phone Muna Perez MD Primary Care Provider [phone] Encounter Details Date Type Department Care Team (Late st Contact Info) Description 04/09/2019 Orders Only [facility] [employer] [facility] [address] [place] [address] Ivet Driscoll MA [address] [place] [address] Bay disease (HCC); Acute renal [...] Progress Notes * Colby Reed MD - 04/09/2019 2:06 AM CDT I would like him to have a PD catheter placed. Does he want to have it done in [place] or [place]? documented in this encounter Plan of Treatment Upcoming Encounters Date Type Department Care Team (Late st Contact Info) Description 10/13/2025 2:30 PM DIGITAL MARKETING EXECUTIVE Office Visit [facility] [address] [place] [address] Ruth Anderson NP [address] [place] [address] documented as of this encounter Procedures Procedure Name Priority Date/Time Associated Diagnosis Comments CREATINE KINASE Routine 04/12/2019 8:30 AM CDT Bay disease (HCC) Acute renal failure syndrome (HCC) RENAL FUNCTION PANEL Routine 04/12/2019 8:30 AM CDT Bay disease (HCC) Acute renal failure syndrome (HCC) documented in this encounter Results * (ABNORMAL) Renal function panel (04/12/2019 8:30 AM CDT) Albumin 4.4 3.5 - 5.0 g/dL BUN 24(A) 4 - 21 mg/dL Calcium 8.7 8.7 - 10.7 mg/dL Chloride 103 99 - 108 Bicarbonate (CO2) 27 22 - 30 mmol/L Creatinine 3.10(A) 0.60 - 1.30 mg/dL eGFR Non- 21.9 mL/min/1.7 3m*2 Glucose 75 Phosphorus, Serum 4.2 Potassium 4.0 3.4 - 5.5 Sodium 143 137 - 147 Blood specimen (specimen) Venous blood / Unknown 04/12/2019 8:30 AM CDT Narrative Ivet Driscoll MA - 04/12/2019 8:35 AM CDT [facility] Clinical Laboratory [address] [place], [place] [address] us Colby Reed MD LAB BLOOD ORDERABLES Fi nal Result * CK (04/12/2019 8:30 AM CDT) Creatine Kinase (CK/CPK) 107.0 U/L Blood specimen (specimen) Venous blood / Unknown 04/12/2019 8:30 AM CDT Narrative Americo IvetHANH - 04/12/2019 8:35 AM CDT [facility] Clinical Laboratory [address] [place] [address] Colby Reed MD LAB BLOOD ORDERABLES Fi nal Result documented in this encounter Visit Diagnoses Diagnosis Bay disease (HCC) Acute renal failure syndrome (HCC) documented in this encounter Care Teams Atmospheric Technician Relationship Specialty Start Date End Date Muna Perez MD [address] [address] PCP - General Nephrology 08/08/22 documented as of this encounter
--- OUTSIDE RECORDS SUMMARY | 2025-08-28 17:57 | XMS_ITS | Encounter Summary ---
Author Organization [facility] [employer] Address [address] [address] Phone Care Team Providers Care Air Route Controller Name Role Phone Muna Perez MD Primary Care Provider [phone] Encounter Details Date Type Department Care Team (Late st Contact Info) Description 05/07/2019 Orders Only [facility] [address] [place] [address] Colby Reed MD [address] [address] Chronic kidney disease stage 4 [...] st Contact Info) Description 10/13/2025 2:30 PM LEAD HOUSEKEEPER Office Visit [facility] [employer] [address] [address] Ruth Anderson NP [address] [place] [address] documented as of this encounter Procedures Procedure Name Priority Date/Time Associated Diagnosis Comments RENAL FUNCTION PANEL Routine 05/07/2019 5:43 AM CDT Chronic kidney disease stage 4 (HCC) documented in this encounter Results * (ABNORMAL) Renal function panel (05/07/2019 5:43 AM CDT) BUN 35(A) 4 - 21 mg/dL Calcium 8.6(A) 8.7 - 10.7 mg/dL Chloride 108 99 - 108 Bicarbonate (CO2) 20(A) 22 - 30 mmol/L Creatinine 2.60(A) 0.60 - 1.30 mg/dL eGFR Non- 26.8 mL/min/1.7 3m*2 Glucose 78 Potassium 4.0 3.4 - 5.5 Sodium 139 137 - 147 Blood specimen (specimen) Venous blood / Unknown 05/07/2019 5:43 AM CDT Narrative Ivet Driscoll MA - 05/07/2019 5:58 AM CDT [facility] Clinical Laboratory [address] [place] [address] [place] Colby Reed MD LAB BLOOD ORDERABLES Fi nal Result documented in this encounter Visit Diagnoses Diagnosis Chronic kidney disease stage 4 (HCC) documented in this encounter Care Teams Air Route Controller Relationship Specialty Start Date End Date Muna Perez MD [address] [place] [address] PCP - General Nephrology 08/08/22 documented as of this encounter
--- OUTSIDE RECORDS SUMMARY | 2025-08-28 17:57 | XMS_ITS | Encounter Summary ---
Author Organization [facility] [employer] Address [address] [address] Phone Care Team Providers Care Telephone Station Installer Name Role Phone Muna Perez MD Primary Care Provider [phone] Encounter Details Date Type Department Care Team (Late st Contact Info) Description 05/18/2019 Orders Only [facility] [employer] [facility] [address] [place] [address] Colby Reed MD [address] [address] Chronic kidney disease stage 4 [...] st Contact Info) Description 10/13/2025 2:[address] SUPERVISOR OF ENGINES Office Visit [facility] [employer] [address] [address] Ruth Anderson, RHONDA [address] [place] [address] documented as of this encounter Visit Diagnoses Diagnosis Chronic kidney disease stage 4 (HCC) documented in this encounter Care Teams Telephone Station Installer Relationship Specialty Start Date End Date Muna Perez MD [address] [place] [address] PCP - General Nephrology 08/08/22 documented as of this encounter
--- OUTSIDE RECORDS SUMMARY | 2025-08-28 17:57 | XMS_ITS | Encounter Summary ---
Author Organization [employer] Address [address] [place] [address] Phone Care Team Providers Care Director Of Marketing Name Role Phone Muna Perez MD Primary Care Provider [phone] Encounter Details Date Type Department Care Team (Late st Contact Info) Description 05/07/2019 Orders Only [employer] [address] [place] [address] Ivet Driscoll MA [address] [place] [address] Bay disease (HCC); Acute renal [...] st Contact Info) Description 10/13/2025 2:30 PM VISUAL EDUCATION DIRECTOR Office Visit [employer] [address] [place] [address] Ruth Anderson NP [address] [place] [address] documented as of this encounter Procedures Procedure Name Priority Date/Time Associated Diagnosis Comments CREATINE KINASE Routine 05/07/2019 5:43 AM CDT Bay disease (HCC) Acute renal failure syndrome (HCC) documented in this encounter Results * CK (05/07/2019 5:43 AM CDT) Creatine Kinase (CK/CPK) 463.0 U/L Blood specimen (specimen) Venous blood / Unknown 05/07/2019 5:43 AM CDT Narrative Ivet Driscoll MA - 05/07/2019 5:58 AM CDT [facility] Clinical Laboratory [address] [place] [address] Colby Reed MD LAB BLOOD ORDERABLES Fi nal Result documented in this encounter Visit Diagnoses Diagnosis Bay disease (HCC) Acute renal failure syndrome (HCC) documented in this encounter Care Teams Director Of Marketing Relationship Specialty Start Date End Date Muna Perez MD [address] [place] [address] PCP - General Nephrology 08/08/22 documented as of this encounter
--- OUTSIDE RECORDS SUMMARY | 2025-08-28 17:57 | XMS_ITS | Encounter Summary ---
Author Organization [facility] [employer] Address [address] [place] [address] Phone Care Team Providers Care Gas Meter Repair Supervisor Name Role Phone Muna Perez MD Primary Care Provider [phone] Encounter Details Date Type Department Care Team (Late st Contact Info) Description 04/30/2019 Orders Only [facility] [address] [place] [address] Ivet Driscoll MA [address] [place] [address] Bay disease (HCC); Acute renal [...] st Contact Info) Description 10/13/2025 2:30 PM CLIENT SUPPORT CONSULTANT Office Visit [facility] [address] [place] [address] Ruth Anderson, RHONDA [address] [facility] [address] [place] [address] documented as of this encounter Visit Diagnoses Diagnosis Bay disease (HCC) Acute renal failure syndrome (HCC) documented in this encounter Care Teams Gas Meter Repair Supervisor Relationship Specialty Start Date End Date Muna Perez MD [address] [facility] [address] [place] [address] PCP - General Nephrology 08/08/22 documented as of this encounter
--- OUTSIDE RECORDS SUMMARY | 2025-08-28 17:57 | XMS_ITS | Encounter Summary ---
Author Organization [facility] [employer] Address [address] [address] Phone Care Team Providers Care Salesperson Automobiles Name Role Phone Muna Perez MD Primary Care Provider [phone] Encounter Details Date Type Department Care Team (Late st Contact Info) Description 06/11/2019 Orders Only [employer] [address] [place] [address] Colby Reed MD [address] [address] Chronic kidney disease stage 4 [...] st Contact Info) Description 10/13/2025 2:30 PM TAIL TRIMMER Office Visit [facility] [address] [address] Ruth Anderson, RHONDA [address] [place] [address] documented as of this encounter Visit Diagnoses Diagnosis Chronic kidney disease stage 4 (HCC) documented in this encounter Care Teams Salesperson Automobiles Relationship Specialty Start Date End Date Mnua Perez MD [address] [place] [address] PCP - General Nephrology 08/08/22 documented as of this encounter
--- OUTSIDE RECORDS SUMMARY | 2025-08-28 17:57 | XMS_ITS | Encounter Summary ---
Author Organization [employer] Address [address] [place] [address] Phone Care Team Providers Care Rope Laying Machine Operator Name Role Phone Muna Perez MD Primary Care Provider [phone] Encounter Details Date Type Department Care Team (Late st Contact Info) Description 08/06/2019 Orders Only [employer] [address] [place] [address] Ivet Driscoll MA [address] [place] [address] Bay disease (HCC); Acute renal [...] st Contact Info) Description 10/13/2025 2:30 PM SLIVER MACHINE OPERATOR Office Visit [employer] [address] [place] [address] Ruth Anderson, RHONDA [address] [facility] [address] [place] [address] documented as of this encounter Visit Diagnoses Diagnosis Bay disease (HCC) Acute renal failure syndrome (HCC) documented in this encounter Care Teams Rope Laying Machine Operator Relationship Specialty Start Date End Date Muna Perez MD [address] [facility] [address] [place] [address] PCP - General Nephrology 08/08/22 documented as of this encounter
--- OUTSIDE RECORDS SUMMARY | 2025-08-28 17:57 | XMS_ITS | Encounter Summary ---
Author Organization [employer] Address [address] [place] [address] Phone Care Team Providers Care Chemist Internship Name Role Phone Muna Perez MD Primary Care Provider [phone] Encounter Details Date Type Department Care Team (Late st Contact Info) Description 03/12/2019 Orders Only [facility] [address] [place] [address] Ivet Driscoll MA [address] [place] [address] Bay disease (HCC); Acute renal [...] st Contact Info) Description 10/13/2025 2:30 PM ENTRY LEVEL PROJECT COORDINATOR Office Visit [facility] [address] [place] [phone] MonicaLucianaRuth, RHONDA [address] [facility] [address] [place] [address] documented as of this encounter Procedures Procedure Name Priority Date/Time Associated Diagnosis Comments CREATINE KINASE Routine 03/15/2019 4:20 AM CDT Bay disease (HCC) Acute renal failure syndrome (HCC) RENAL FUNCTION PANEL Routine 03/15/2019 4:20 AM CDT Bay disease (HCC) Acute renal failure syndrome (HCC) documented in this encounter Results * (ABNORMAL) Renal function panel (03/15/2019 4:20 AM CDT) Albumin 3.9 3.5 - 5.0 g/dL BUN 43(A) 4 - 21 mg/dL Calcium 8.8 8.7 - 10.7 mg/dL Chloride 104 99 - 108 Bicarbonate (CO2) 28 22 - 30 mmol/L Creatinine 3.90(A) 0.60 - 1.30 mg/dL eGFR Non- 16.8 mL/min/1.7 3m*2 Glucose 99 Phosphorus, Serum 3.5 Potassium 4.4 3.4 - 5.5 Sodium 144 137 - 147 AST (SGOT) 25 U/L ALT (SGPT) 17 U/L Alkaline Phosphatase 60 U/L Total Protein, Serum 604 Total Bilirubin 0.2 MG/DL Blood specimen (specimen) Venous blood / Unknown 03/15/2019 4:20 AM CDT Patricia Powell MA - 03/18/2019 8:36 AM CDT As ordered [facility] [address] [place], [place] [address] us Colby Reed MD LAB BLOOD ORDERABLES Fi nal Result * CK (03/15/2019 4:20 AM CDT) Creatine Kinase (CK/CPK) 469.0 U/L Blood specimen (specimen) Venous blood / Unknown 03/15/2019 4:20 AM CDT Narrative Patricia Ramirez MA - 03/18/2019 8:32 AM CDT As ordered [facility] [address] [place] [id number] [place] Colby Reed MD LAB BLOOD ORDERABLES Fi nal Result documented in this encounter Visit Diagnoses Diagnosis Bya disease (HCC) Acute renal failure syndrome (HCC) documented in this encounter Care Teams Chemist Internship Relationship Specialty Start Date End Date Muna Perez MD [facility] [address] [address] PCP - General Nephrology 08/08/22 documented as of this encounter
--- OUTSIDE RECORDS SUMMARY | 2025-08-28 17:57 | XMS_ITS | Encounter Summary ---
Author Organization [employer] Address [address] [place] [address] Phone Care Team Providers Care Pharmacy Picking Tech Name Role Phone Muna Perez MD Primary Care Provider [phone] Encounter Details Date Type Department Care Team (Late st Contact Info) Description 04/16/2019 Orders Only [facility] [address] [place] [address] Ivet Driscoll MA [address] [place] [address] Bay disease (HCC); Acute renal [...] st Contact Info) Description 10/13/2025 2:30 PM MAINTENANCE WORKER SWIMMING POOL Office Visit [facility] [address] [place] [phone] Ruth Anderson, RHONDA [address] [facility] [address] [place] [address] documented as of this encounter Visit Diagnoses Diagnosis Bya disease (HCC) Acute renal failure syndrome (HCC) documented in this encounter Care Teams Pharmacy Picking Tech Relationship Specialty Start Date End Date Muna Perez MD [address] [facility] [address] [place] [address] PCP - General Nephrology 08/08/22 documented as of this encounter
--- NOTE | 2025-08-28 18:16 | XRR_ITS ---
PROCEDURE INFORMATION: Exam: XR Chest Exam date and time: 08/28/2025 6:18 PM Age: 50 years old Clinical indication: Pain; Chest pressure; Prior surgery; Surgery date: 6+ months; Surgery type: Loop recorder, cardiac stents; Additional info: Vtach TECHNIQUE: Imaging protocol: Radiologic exam of the chest. Views: 1 view. COMPARISON: CT chest w con* [id number] 10/05/2023 7:26 PM FINDINGS: Tubes, catheters and devices: Precordial loop recorder. Lungs: Lungs are hyperinflated. Clear parenchyma. Pleural spaces: No pleural effusion. No pneumothorax. Heart/Mediastinum: Cardiac silhouette is normal in size for technique. Bones/joints: Age appropriate. XR/XR chest 1V portable [id number] IMPRESSION: Hyperinflated but clear lungs. No other acute cardiopulmonary abnormality.
--- NOTE | 2025-08-28 18:16 | ECG_ITS ---
[employer] Test Date: 2025-08-28 Pat Name: Julian Cristobal Department: Room: Gender: Male Delinquency Prevention Social Worker: : 1975 Requested By: Julian Diane Order Number: [id number] Ilene MD: Bhupinder Vargas M.D. Measurements Intervals [place] Rate: 81 P: 57 WV: 143 QRS: -21 QRSD: 99 T: 105 QT: 366 QTc: 427 Interpretive Statements SINUS RHYTHM WITH FREQUENT VENTRICULAR PREMATURE COMPLEXES BORDERLINE LEFT AXIS DEVIATION [QRS AXIS < -20] MODERATE VOLTAGE CRITERIA FOR LVH, CONSIDER NORMAL VARIANT [MEETS CRITERIA IN ONE OF: R(aVL), S(V1), R(V5), R(V5/V6)+S(V1)] MODERATE T-WAVE ABNORMALITY, CONSIDER LATERAL ISCHEMIA [-0.1+ mV T-WAVE IN I/aVL/V5/V6] Compared to ECG 03/04/2024 10:35:49 Ventricular premature complex(es) now present T-wave abnormality now present Possible ischemia now present Intraventricular conduction delay no longer present Electronically Signed On 08-30-2025 22:16:26 COMMUNITY PHARMACIST by Bhupinder Vargas M.D. [id number] [id number]
--- NOTE | 2025-08-28 18:20 | W.ED.CHESTPA ---
HPI - Chest Pain General: Chief Complaint: Chest Pain Stated Complaint: cp, high hr Time Seen by Provider: 08/28/25 18:01 History of Present Illness: 50-year-old male patient with a history of coronary disease. Currently has a loop recorder in place last January due to nonsustained runs of ventricular tachycardia he says. He has not had any problems since that time until this evening. He was sitting on the couch, and began to feel his heartbeat quickly. He was having some chest discomfort and some shortness of breath. He used a pulse oximeter, which said that his heart rate was 178. It resolved on its own. He is having no pain currently. He denies recent illness or fever. He denies swelling of his feet, etc. He states he has a history of chronic kidney disease but his creatinine was improved last week. Related Data Home Medications ?Medication ?Instructions ?Recorded ?Confirmed cholecalciferol (vitamin D3) 25 1,000 unit PO DAILY 10/29/19 07/22/24 mcg (1,000 unit) capsule evolocumab 140 mg/mL subcutaneous 140 mg SUBCUT ONCE 01/13/23 07/22/24 syringe (Repatha Syringe) aspirin 325 mg tablet 81 mg PO DAILY 05/01/23 07/22/24 potassium chloride 20 mEq 20 meq PO DAILY Dehydration 05/01/23 07/22/24 tablet,extended release furosemide 20 mg tablet (Lasix) 20 mg PO BID PRN Edema 05/28/24 07/22/24 Previous Rx's ?Medication ?Instructions ?Recorded trazodone 150 mg tablet 150 mg PO .HS #30 tabs 12/01/20 amlodipine 10 mg tablet (Norvasc) 10 mg PO DAILY #90 tabs 11/14/21 prasugrel HCl 10 mg tablet 10 mg PO DAILY #90 tabs 03/04/24 nitroglycerin 0.4 mg sublingual 0.4 mg sublingual Q5M PRN chest 05/28/24 tablet pain #25 tabs metoprolol tartrate 50 mg tablet 50 mg PO BID #180 tabs 09/27/24 isosorbide mononitrate 30 mg 30 mg PO DAILY #90 tabs 11/18/24 tablet,extended release 24 hr Allergies Allergy/AdvReac Type Severity Reaction Status Date / Time droperidol (From Inapsine) Allergy Severe Unknown Verified 08/28/25 18:00 zolpidem (From Ambien) Allergy Severe Amnesia Verified 08/28/25 18:00 tramadol (From Ultram) AdvReac Severe Severe Verified 08/28/25 18:00 anxiety tuberculin, purified protein AdvReac Intermediate ALGY-Rash Verified 08/28/25 18:00 deriva PFSH ED PFS: Medical History Abnormal stress test CKD (chronic kidney disease) stage 3, GFR 30-59 ml/min Vitamin D deficiency, unspecified Acute depression Arteriosclerotic heart disease GERD (gastroesophageal reflux disease) Chronic rhinitis Obstructive sleep apnea Essential (primary) hypertension Common migraine without intractability Metabolic encephalopathy Insomnia, unspecified Tremor, unspecified Anxiety Venous insufficiency (chronic) (peripheral) Closed displaced fracture of distal phalanx of toe of left foot Chronic kidney disease, unspecified Bay disease Acute on chronic renal insufficiency Acute non-recurrent pansinusitis 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 Edema, unspecified Shortness of breath Surgical History H/O angioplasty H/O arthroscopic knee surgery Hx of tonsillectomy H/O heart surgery S/P hemodialysis catheter insertion Family History Mother , AT AGE 55 Hypertension Diabetes Milmay disease Father , AT AGE 55 Alcoholism Social History Smoking and tobacco/nicotine status: former use of tobacco/nicotine Quit status (tobacco/nicotine): has quit using Year quit tobacco: Jul 2022 Alcohol intake: current Alcohol intake frequency: holidays/special occasions only Substance/Drug Use: never Marital status: Current occupational status: disabled Do you think of yourself as: Straight/Heterosexual Physical Exam Const: COMMON NORMALS: no acute distress GENERAL APPEARANCE: cooperative; not ill appearing and not frail appearing HENMT: COMMON NORMALS: normocephalic, atraumatic and Normal external nose present HEAD & SCALP: normocephalic and atraumatic FACE & SINUS: normal facial exam and face symmetric NOSE: Normal external nose present Eye: COMMON NORMALS: Equal, round and reactive pupils present and EOMs intact bilaterally PUPIL: Yes Equal, round and reactive pupils present Neck/C-Spine: GENERAL: Yes trachea midline Chest: CHEST: Yes Symmetrical chest wall rise Resp: COMMON NORMALS: normal respiratory effort, No retractions, No use of accessory muscles and clear to auscultation bilaterally AUSCULTATION: clear to auscultation bilaterally Cardio: COMMON NORMALS: regular rate and regular rhythm RATE: regular rate RHYTHM: regular rhythm GI: COMMON NORMALS: Normal to inspection, nondistended, normoactive bowel sounds present Extremity: COMMON NORMALS: no pedal edema Neuro: JARED COMA SCALE: document GCS findings Oneida coma scale eye opening: Spontaneous [place] coma scale verbal response: Orientated Jared coma scale motor response: Obey commands Oneida coma scale total score: 15 SENSORY EXAM: Yes extremities (intact) Psych: COMMON NORMALS: speech normal SPEECH: Yes normal speech Skin: COMMON NORMALS: no rashes or lesions noted GENERAL SKIN EXAM: no rashes or lesions noted Course Vital Signs: Vital signs: Vital Signs Temperature 97.7 F 08/28/25 17:55 Pulse Rate 83 08/28/25 21:11 Respiratory Rate 16 08/28/25 17:55 Blood Pressure 154/106 08/28/25 21:11 Pulse Oximetry 96 08/28/25 21:11 Oxygen Delivery Me thod Room Air 08/28/25 17:55 MDM - Chest Pain Medical Decision Making 50-year-old male with a history of coronary disease. He presents with palpitations and chest discomfort that are now resolved. He has a loop recorder. His chest x-ray is clear. EKG timed 1757 read 1759 reveals sinus rhythm with PVCs. Borderline left axis. Intervals are normal. No ST elevation or depression. First troponin is 25. Second troponin remained the same. BNP is only 252. TSH is 1.44. Creatinine is 2.2 which is within his baseline. Other laboratory nonactionable. With resolution of his symptoms, he is stable for discharge. 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 He may need his loop recorder interpreted at that point. Return for repeated episodes of chest discomfort or palpitations. Lab Data 08/28/25 18:18 08/28/25 18:18 Radiology Impressions Chest X-Ray 08/28/25 18:16 IMPRESSION: Hyperinflated but clear lungs. No other acute cardiopulmonary abnormality. Laboratory Results WBC 5.47 10^3/uL (3.29-11.43) 08/28/25 18:18 RBC 5.47 10^6/uL (3.85-5.65) 08/28/25 18:18 Hgb 15.60 g/dL (11.27-16.99) 08/28/25 18:18 Hct 46.7 % (37-53) 08/28/25 18:18 MCV 85.4 fl (82-101) 08/28/25 18:18 MCH 28.5 pg (27-33) 08/28/25 18:18 MCHC 33.4 g/dL (30-55) 08/28/25 18:18 RDW 14.7 % (12.1-15.1) 08/28/25 18:18 Plt Count 155 10^3/cmm (157-399) L 08/28/25 18:18 MPV 9.9 fL (7.4-10.4) 08/28/25 18:18 Neut % (Auto) 56.1 % 08/28/25 18:18 Lymph % (Auto) 28.3 % 08/28/25 18:18 [place]ock % (Auto) 9.0 % 08/28/25 18:18 Eos % (Auto) 5.5 % 08/28/25 18:18 Baso % (Auto) 0.9 % 08/28/25 18:18 Neut # (Auto) 3.07 10^3/uL (1.8-7.7) 08/28/25 18:18 Lymph # (Auto) 1.6 10^3/uL (0.8-4.8) 08/28/25 18:18 [place] # (Auto) 0.5 10^3/uL (0.2-0.9) 08/28/25 18:18 Eos # (Auto) 0.3 10^3/uL (0.0-0.8) 08/28/25 18:18 Baso # (Auto) 0.1 10^3/uL (0.0-0.1) 08/28/25 18:18 Nucleated RBC % (auto) 0 % 08/28/25 18:18 Nucleated RBCs # 0.0 /100WBC 08/28/25 18:18 Sodium 139 mmol/L (136-145) 08/28/25 18:18 Potassium 3.8 mmol/L (3.5-5.1) 08/28/25 18:18 Chloride 103 mmol/L (98-107) 08/28/25 18:18 Carbon Dioxide 24 mmol/L (22-29) 08/28/25 18:18 Anion Gap 15.8 (5-19) 08/28/25 18:18 BUN 24 mg/dL (6-20) H 08/28/25 18:18 Creatinine 2.2 mg/dL (0.7-1.2) H 08/28/25 18:18 GFR Calculation 31.6 mL/min (90-130) L 08/28/25 18:18 Glucose 95 mg/dL (65-115) 08/28/25 18:18 Calculated Osmolality 292 mOsm/kg (285-295) 08/28/25 18:18 Calcium 9.5 mg/dL (8.5-10.5) 08/28/25 18:18 Phosphorus 2.4 mg/dL (2.5-4.5) L 08/28/25 18:18 Magnesium 2.2 mg/dL (1.7-2.3) 08/28/25 18:18 Total Bilirubin 0.4 mg/dL (0.15-1.2) 08/28/25 18:18 AST 27 U/L (0-40) 08/28/25 18:18 ALT 27 U/L (0-41) 08/28/25 18:18 Alkaline Phosphatase 73 U/L (40-130) 08/28/25 18:18 Troponin T Baseline 25 ng/L (0-15) H 08/28/25 18:18 Troponin T 120 Minute 25.59 ng/L (0-15) H 08/28/25 19:53 Delta Troponin T 0.59 ABS# (0-10) 08/28/25 19:53 NT-Pro-B Natriuret Pep 252 pg/mL (0-125) H 08/28/25 18:18 Total Protein 6.4 g/dL (6.6-8.7) L 08/28/25 18:18 Albumin 4.9 g/dL (3.5-5.2) 08/28/25 18:18 Globulin 1.5 g/dL (1.3-4.6) 08/28/25 18:18 TSH 1.44 uIU/mL (0.27-4.20) 08/28/25 18:18 Urine Color Yellow (Yellow) 08/28/25 18:41 Urine Appearance Clear (CLEAR) 08/28/25 18:41 Urine pH 6.5 (5-7) 08/28/25 18:41 Ur Specific [place] 1.012 (1.005-1.030) 08/28/25 18:41 Urine Protein Trace (Negative) A 08/28/25 18:41 Urine Glucose (UA) Negative (Normal) 08/28/25 18:41 Urine Ketones Negative (Negative) 08/28/25 18:41 Urine Blood Negative (Negative) 08/28/25 18:41 Urine Nitrate Negative (Negative) 08/28/25 18:41 Urine Bilirubin Negative (Negative) 08/28/25 18:41 Urine Urobilinogen 0.2 mg/dL (Negative) 08/28/25 18:41 Ur Leukocyte Esterase Negative (Negative) 08/28/25 18:41 Urine RBC 0-2 /hpf (0-2) 08/28/25 18:41 Urine WBC 0-5 /hpf (0-5) 08/28/25 18:41 Ur Squamous Epith Cells 0-5 /hpf (0-5) 08/28/25 18:41 Amorphous Sediment Not Reportable 08/28/25 18:41 Urine Bacteria None seen /hpf (NONE) 08/28/25 18:41 Hyaline Casts 0.81 /lpf 08/28/25 18:41 All radiology interpretation(s) finalized by discharge Discharge Plan Discharge Patient Disposition: Home Clinical Impression: Chest pain, Palpitations Condition: Stable Prescriptions: No Action aspirin 325 mg tablet 81 mg PO DAILY cholecalciferol (vitamin D3) 1,000 unit capsule 1,000 unit PO DAILY amlodipine [Norvasc] 10 mg tablet 10 mg PO DAILY Qty: 90 4RF Repatha Syringe 140 mg/mL syringe 140 mg SUBCUT ONCE potassium chloride 20 mEq tablet extended release 20 meq PO DAILY Rx Instructions: PRN when taking furosemide nitroglycerin 0.4 mg tablet, sublingual 0.4 mg sublingual Q5M PRN (Reason: chest pain) Qty: 25 5RF Rx Instructions: do not exceed 3 doses per episode prasugrel HCl 10 mg tablet 10 mg PO DAILY Qty: 90 3RF furosemide [Lasix] 20 mg tablet 20 mg PO BID PRN (Reason: Edema) Patient Comments: Patient takes only for edema Rx Instructions: PRN trazodone 150 mg tablet 150 mg PO .HS Qty: 30 2RF metoprolol tartrate 50 mg tablet 50 mg PO BID Qty: 180 3RF Rx Instructions: Take 75 mg AM 50 mg PM isosorbide mononitrate 30 mg tablet extended release 24 hr 30 mg PO DAILY Qty: 90 3RF Discharge Orders: Discharge ED (Routine); Ordered 08/28/25 Ordered By: Julian Dougherty Referrals: Hina Zaragoza DO [Primary Care Provider, [facility]] - 1-3 days Patient Instructions: Supraventricular Tachycardia (ED), Chest Pain (ED), Heart Palpitations (ED), Opioid Safety, Pain Management, Patient Portal & Darline Instructions Activity Restrictions/Additional Instructions: Return for repeated episodes of chest pain, shortness of breath, palpitations, etc. Call your heart doctor in the morning, let them know you are seen here, they may wish to see you. Print Language: Gabonese Coding Level of Care Code ED Head Of Marketing Adometry for Chg Fwd Heart Score HEART Score Components History: Moderately Suspicious EKG: Non-specific Changes Age: 45-64 yrs Risk Factors: >/=3 Risk Factors Troponin: Baseline Trop 16-45 ng/L HEART Score RESULT HEART Score: 6
[2025-08-28 18:46] LABS: Hematocrit 46.7 % (37-53); Hemoglobin 15.60 g/dL (11.27-16.99); Mean Corpuscular HGB Conc 33.4 g/dL (30-55); Mean Corpuscular Hemoglobin 28.5 pg (27-33); Mean Corpuscular Volume 85.4 fl (82-101); Nucleated Red Blood Cells % 0 %; Platelet Count 155 10^3/cmm (157-399); Red Blood Count 5.47 10^6/uL (3.85-5.65); White Blood Count 5.47 10^3/uL (3.29-11.43)
[2025-08-28 18:59] LABS: Troponin(5th) Baseline 25 ng/L (0-15)
[2025-08-28 19:06] LABS: Alanine Aminotransferase 27 U/L (0-41); Albumin Level 4.9 g/dL (3.5-5.2); Alkaline Phosphatase 73 U/L (40-130); Anion Gap 15.8 (5-19); Aspartate Amino Transferase 27 U/L (0-40); Blood Urea Nitrogen 24 mg/dL (6-20); Calcium 9.5 mg/dL (8.5-10.5); Carbon Dioxide 24 mmol/L (22-29); Chloride 103 mmol/L (98-107); Creatinine Clr Calc Pharmacy 46.1882; Globulin 1.5 g/dL (1.3-4.6); Glucose 95 mg/dL (65-115); Magnesium 2.2 mg/dL (1.7-2.3); NT Pro B Type Natriuretic Pept 252 pg/mL (0-125); Osmolality Calculated 292 mOsm/kg (285-295); Potassium 3.8 mmol/L (3.5-5.1); Sodium 139 mmol/L (136-145); Thyroid Stimulating Hormone 1.44 uIU/mL (0.27-4.20); Total Protein 6.4 g/dL (6.6-8.7)
[2025-08-28 19:12] LABS: Glucose Urine UA Negative (Normal); Nitrate Urine Negative (Negative); Specific Gravity, Urine 1.012 (1.005-1.030)
[2025-08-28 19:17] LABS: Add Urine Microscopic? YES
[2025-08-28 20:10] VITALS: BP 138/98; PULSE 85
[2025-08-28 20:22] LABS: Troponin 5 2HR 25.59 ng/L (0-15); Troponin 5 2HR Delta 0.59 ABS# (0-10)
[2025-08-28 20:25] VITALS: BP 162/109; PULSE 87; O2SAT 94
--- NOTE | 2025-08-28 20:34 | ECG_ITS ---
[employer] Test Date: 2025-08-28 Pat Name: Julian Cristobal Department: Room: Gender: Male Manager Book: : 1975 Requested By: Julian Diane Order Number: [id number] Ilene MD: Bhupinder Vargas M.D. 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 [id number]
[2025-08-28 21:11] VITALS: BP 154/106; PULSE 83; O2SAT 96
== END 2025-08-28 21:12 | disposition home or self-care (01) ==
PROVIDERS: Emergency Provider Emergency Medicine; PCP Family Medicine
DX: R07.9 Chest pain, unspecified (principal); R00.2 Palpitations; Z79.82 Long term (current) use of aspirin; Z87.891 Personal history of nicotine dependence; I12.9 Hypertensive chronic kidney disease with stage 1 through stage 4 chronic kidney disease, or unspecified chronic kidney disease; N18.9 Chronic kidney disease, unspecified
CPT/HCPCS: 36415; 71045; 80053; 81001; 83735; 83880; 84100; 84443; 84484; 85025; 93005; 99285

== ENCOUNTER 2025-09-05 07:24 | Outpatient (CLI) | payer MEDICARE, SELFPAY ==
[2025-09-05 07:59] LABS: Hematocrit 49.3 % (37-53); Hemoglobin 16.30 g/dL (11.27-16.99); Mean Corpuscular HGB Conc 33.1 g/dL (30-55); Mean Corpuscular Hemoglobin 28.8 pg (27-33); Mean Corpuscular Volume 87.1 fl (82-101); Nucleated Red Blood Cells % 0 %; Platelet Count 134 10^3/cmm (157-399); Red Blood Count 5.66 10^6/uL (3.85-5.65); White Blood Count 4.85 10^3/uL (3.29-11.43)
[2025-09-05 08:23] LABS: Alanine Aminotransferase 21 U/L (0-41); Albumin Level 4.6 g/dL (3.5-5.2); Alkaline Phosphatase 58 U/L (40-130); Blood Urea Nitrogen 17 mg/dL (6-20); Calcium 9.6 mg/dL (8.5-10.5); Carbon Dioxide 26 mmol/L (22-29); Chloride 103 mmol/L (98-107); Globulin 2.1 g/dL (1.3-4.6); Glucose 100 mg/dL (65-115); Osmolality Calculated 290 mOsm/kg (285-295); Sodium 139 mmol/L (136-145); Total Protein 6.7 g/dL (6.6-8.7)
[2025-09-05 08:29] LABS: Anion Gap 14.4 (5-19); Aspartate Amino Transferase 27 U/L (0-40); Potassium 4.4 mmol/L (3.5-5.1)
== END 2025-09-05 07:25 | disposition home or self-care (01) ==
PROVIDERS: PCP Family Medicine; Visit Provider Family Medicine
DX: E74.04 McArdle disease (principal)
CPT/HCPCS: 36415; 80053; 82550; 85025

== ENCOUNTER 2025-09-19 07:45 | Outpatient (CLI) | payer MEDICARE, SELFPAY ==
[2025-09-19 08:25] LABS: Hematocrit 48.6 % (37-53); Hemoglobin 16.40 g/dL (11.27-16.99); Mean Corpuscular HGB Conc 33.7 g/dL (30-55); Mean Corpuscular Hemoglobin 29.3 pg (27-33); Mean Corpuscular Volume 86.9 fl (82-101); Nucleated Red Blood Cells % 0 %; Platelet Count 170 10^3/cmm (157-399); Red Blood Count 5.59 10^6/uL (3.85-5.65); White Blood Count 8.65 10^3/uL (3.29-11.43)
[2025-09-19 08:50] LABS: Ammonia 50 umol/L (16-60)
[2025-09-19 08:59] LABS: Alanine Aminotransferase 18 U/L (0-41); Albumin Level 4.4 g/dL (3.5-5.2); Alkaline Phosphatase 63 U/L (40-130); Aspartate Amino Transferase 22 U/L (0-40); Blood Urea Nitrogen 22 mg/dL (6-20); Calcium 9.4 mg/dL (8.5-10.5); Carbon Dioxide 25 mmol/L (22-29); Chloride 103 mmol/L (98-107); Cholesterol 137 mg/dL (0-200); Globulin 1.8 g/dL (1.3-4.6); Glucose 95 mg/dL (65-115); HDL Cholesterol 59 mg/dL (60-100); Osmolality Calculated 291 mOsm/kg (285-295); Prostate Specific Antigen 0.692 ng/mL (0-4); Sodium 139 mmol/L (136-145); Total Protein 6.2 g/dL (6.6-8.7); Triglycerides 111 mg/dL (0-150)
[2025-09-19 09:04] LABS: Anion Gap 14.7 (5-19); Potassium 3.7 mmol/L (3.5-5.1)
== END 2025-09-19 07:46 | disposition home or self-care (01) ==
LOC: LAB 07:53
PROVIDERS: PCP Family Medicine; Visit Provider Family Medicine
DX: E78.2 Mixed hyperlipidemia (principal); N40.0 Benign prostatic hyperplasia without lower urinary tract symptoms
CPT/HCPCS: 36415; 80053; 80061; 82140; 82550; 84153; 85025

== ENCOUNTER 2025-09-26 07:47 | Outpatient (CLI) | payer MEDICARE, SELFPAY ==
[2025-09-26 08:12] LABS: Hematocrit 48.7 % (37-53); Hemoglobin 15.90 g/dL (11.27-16.99); Mean Corpuscular HGB Conc 32.6 g/dL (30-55); Mean Corpuscular Hemoglobin 29.6 pg (27-33); Mean Corpuscular Volume 90.5 fl (82-101); Nucleated Red Blood Cells % 0 %; Platelet Count 133 10^3/cmm (157-399); Red Blood Count 5.38 10^6/uL (3.85-5.65); White Blood Count 6.01 10^3/uL (3.29-11.43)
[2025-09-26 08:30] LABS: Ammonia 36 umol/L (16-60)
[2025-09-26 08:31] LABS: Alanine Aminotransferase 25 U/L (0-41); Albumin Level 4.4 g/dL (3.5-5.2); Alkaline Phosphatase 65 U/L (40-130); Aspartate Amino Transferase 25 U/L (0-40); Blood Urea Nitrogen 20 mg/dL (6-20); Calcium 9.0 mg/dL (8.5-10.5); Carbon Dioxide 27 mmol/L (22-29); Chloride 103 mmol/L (98-107); Globulin 1.8 g/dL (1.3-4.6); Glucose 96 mg/dL (65-115); Osmolality Calculated 290 mOsm/kg (285-295); Sodium 139 mmol/L (136-145); Total Protein 6.2 g/dL (6.6-8.7)
[2025-09-26 08:32] LABS: Anion Gap 13.5 (5-19); Potassium 4.5 mmol/L (3.5-5.1)
== END 2025-09-26 07:48 | disposition home or self-care (01) ==
PROVIDERS: PCP Family Medicine; Visit Provider Family Medicine
DX: E74.04 McArdle disease (principal)
CPT/HCPCS: 36415; 80053; 82140; 82550; 85025

== ENCOUNTER 2025-10-17 08:06 | Outpatient (CLI) | payer MEDICARE, SELFPAY ==
[2025-10-17 08:39] LABS: Hematocrit 43.9 % (37-53); Hemoglobin 14.90 g/dL (11.27-16.99); Mean Corpuscular HGB Conc 33.9 g/dL (30-55); Mean Corpuscular Hemoglobin 29.8 pg (27-33); Mean Corpuscular Volume 87.8 fl (82-101); Nucleated Red Blood Cells % 0 %; Platelet Count 156 10^3/cmm (157-399); Red Blood Count 5.00 10^6/uL (3.85-5.65); White Blood Count 4.87 10^3/uL (3.29-11.43)
[2025-10-17 09:05] LABS: Ammonia 42 umol/L (16-60)
[2025-10-17 09:07] LABS: Alanine Aminotransferase 17 U/L (0-41); Albumin Level 4.4 g/dL (3.5-5.2); Alkaline Phosphatase 58 U/L (40-130); Anion Gap 15.5 (5-19); Aspartate Amino Transferase 27 U/L (0-40); Blood Urea Nitrogen 20 mg/dL (6-20); Calcium 8.8 mg/dL (8.5-10.5); Carbon Dioxide 24 mmol/L (22-29); Chloride 106 mmol/L (98-107); Globulin 1.7 g/dL (1.3-4.6); Glucose 124 mg/dL (65-115); Osmolality Calculated 298 mOsm/kg (285-295); Potassium 3.5 mmol/L (3.5-5.1); Sodium 142 mmol/L (136-145); Total Protein 6.1 g/dL (6.6-8.7)
== END 2025-10-17 08:07 | disposition home or self-care (01) ==
PROVIDERS: PCP Family Medicine; Visit Provider Family Medicine
DX: E74.04 McArdle disease (principal)
CPT/HCPCS: 36415; 80053; 82140; 82550; 85025

== ENCOUNTER 2025-10-26 09:06 | Outpatient (CLI) | payer MEDICARE, SELFPAY ==
[2025-10-26 09:44] LABS: Hematocrit 47.1 % (37-53); Hemoglobin 15.80 g/dL (11.27-16.99); Mean Corpuscular HGB Conc 33.5 g/dL (30-55); Mean Corpuscular Hemoglobin 30.0 pg (27-33); Mean Corpuscular Volume 89.4 fl (82-101); Nucleated Red Blood Cells % 0 %; Platelet Count 159 10^3/cmm (157-399); Red Blood Count 5.27 10^6/uL (3.85-5.65); White Blood Count 6.28 10^3/uL (3.29-11.43)
[2025-10-26 10:06] LABS: Ammonia 30 umol/L (16-60)
[2025-10-26 10:08] LABS: Alanine Aminotransferase 20 U/L (0-41); Albumin Level 4.8 g/dL (3.5-5.2); Alkaline Phosphatase 61 U/L (40-130); Anion Gap 15.6 (5-19); Aspartate Amino Transferase 21 U/L (0-40); Blood Urea Nitrogen 22 mg/dL (6-20); Calcium 9.4 mg/dL (8.5-10.5); Carbon Dioxide 27 mmol/L (22-29); Chloride 104 mmol/L (98-107); Globulin 1.7 g/dL (1.3-4.6); Glucose 80 mg/dL (65-115); Osmolality Calculated 296 mOsm/kg (285-295); Potassium 4.6 mmol/L (3.5-5.1); Sodium 142 mmol/L (136-145); Total Protein 6.5 g/dL (6.6-8.7)
== END 2025-10-26 09:07 | disposition home or self-care (01) ==
PROVIDERS: PCP Family Medicine; Visit Provider Family Medicine
DX: E74.04 McArdle disease (principal)
CPT/HCPCS: 80053; 82140; 82550; 85025